=== PATIENT | male | born 1960 | race African-American/Black ===

== ENCOUNTER 2024-10-02 12:14 | Outpatient (AMB) | payer OTHER, SELFPAY ==
--- OUTSIDE RECORDS SUMMARY | 2024-09-26 15:00 | XMS_ITS | Encounter Summary ---
Author Organization [facility] [place] [address] Care Team Providers Care Mangle Roller Name Role Phone Deloris Tobias INDIGO VAT TENDER CLOTH Primary Care Provider [phone] Reason for Visit * Consultation (Routine) - Authorized Specialty Diagnoses / Procedures Referred By Tonja short Referred To Contact Podiatry Diagnoses Healthcare maintenance Type 2 diabetes mellitus with peripheral artery disease ([facility] V24, [facility]/HCC V28) Edema, lower extremity Onychogryphosis Onychomycosis Callus Xerosis of skin Deloris Tobias NP [address] [facility] [address] [place] [address] Phone: tel: fax: [facility] Podiatry, Dental, Audiology, Optometry - [place] [address] [address] [address] [place] [address] Phone: tel: fax: Referral ID Status Reason Start Date Expiration Date Visits Requested Visits Authorized [id number] Authorized Consult and Treat 05/12/2024 05/12/2025 1 1 Encounter Details Date Type Department Care Team (Latest Contact Info) Description 09/26/2024 3:00 PM EDT PACE External Visit Emilee MAHONEY [place] [address] [place] [address] Healthcare maintenance; Type 2 diabetes mellitus with peripheral artery disease ([facility]/HCC V24, [facility]/HCC V28); Edema, lower extremity; Onychogryphosis; Onychomycosis; Callus; Xerosis of skin Social History Tobacco Use Types Packs/Day Years Used Date Smoking Tobacco: Every Day Cigarettes 0.5 31 Started: 09/14/1993 Smokeless Tobacco: Never Alcohol Use Standard Drinks/Week Comments Not Currently 0 (1 standard drink = 0.6 oz pur e alcohol) Sex and Gender Information Value Date Recorded Sex Assigned at Not on file Legal Sex Male 3:36 PM EST Gender Identity Not on file Sexual Orientation Not on file documented as of this encounter Plan of Treatment Upcoming Encounters Date Type Department Care Team (Late st Contact Info) Description 10/02/2024 6:00 PM EDT PACE Home Care / PACE Home Visit Emilee [facility] [address] [place] [phone] My Phillips 10/03/2024 10:30 AM EDT PACE Home Care / PACE Home Visit Emilee [facility] [address] [place] [phone] Merlin Forbes 10/03/2024 6:00 PM EDT PACE Home Care / PACE Home Visit Emilee [facility] [address] [place] [phone] My Phillips 10/04/2024 9:30 AM EDT PACE Home Care / PACE Home Visit Emilee [facility]ONEY [facility] [address] [place] [phone] Merlin Forbes 10/04/2024 6:00 PM EDT PACE Home Care / PACE Home Visit Emilee [facility] [address] [place] [phone] My Phillips 10/07/2024 9:30 AM EDT PACE Home Care / PACE Home Visit Emilee [facility] [address] [place] [address] Merlin Forbes 10/07/2024 6:00 PM EDT PACE Home Care / PACE Home Visit Emilee [facility] [address] [place] [address] My Phillips 10/08/2024 7:00 AM EDT Clinical Support [facility] [address] [place] [address] Nkechi Grajeda, EDD 10/08/2024 9:15 AM EDT Clinical Support [facility] [place] [facility] [address] [place] [address] Nkechi Grajeda, EDD 10/08/2024 6:00 PM EDT PACE Home Care / PACE Home Visit Emilee [facility] [address] [place] [phone] My Phillips 10/09/2024 10:00 AM EDT PACE Home Care / PACE Home Visit Emilee [facility] [address] [place] [phone] Merlin Forbes 10/09/2024 6:00 PM EDT PACE Home Care / PACE Home Visit Emilee [facility]Y [facility] [address] [place] [phone] My Phillips 10/10/2024 10:30 AM EDT PACE Home Care / PACE Home Visit Emilee [facility] [address] [place] [phone] Merlin Forbes 10/10/2024 6:00 PM EDT PACE Home Care / PACE Home Visit Emilee [facility]Y [facility] [address] [place] [phone] My Phillips 10/11/2024 9:30 AM EDT PACE Home Care / PACE Home Visit Emilee [facility] [address] [place] [address] Merlin Forbes 10/11/2024 6:00 PM EDT PACE Home Care / PACE Home Visit Emilee [facility] [address] [place] [address] My Phillips 10/14/2024 9:30 AM EDT PACE Home Care / PACE Home Visit Emilee [facility]Y [facility] [address] [place] [phone] Merlin Forbes 10/14/2024 6:00 PM EDT PACE Home Care / PACE Home Visit Emilee [facility]Y [facility] [address] [place] [phone] My Phillips 10/15/2024 7:00 AM EDT Clinical Support [facility] [address] [place] [phone] Nkechi Grajeda RN 10/15/2024 9:30 AM EDT PACE Home Care / PACE Home Visit Emilee [facility] [address] [place] [phone] Merlin Forbes 10/15/2024 6:00 PM EDT PACE Home Care / PACE Home Visit Emilee [facility] [address] [place] [phone] My Phillips 10/16/2024 10:00 AM EDT PACE Home Care / PACE Home Visit Emilee [facility] [address] [place] [phone] Merlin Forbes 10/16/2024 6:00 PM EDT PACE Home Care / PACE Home Visit Emilee [facility] [address] [place] [phone] My Phillips 10/17/2024 10:30 AM EDT PACE Home Care / PACE Home Visit Emilee [facility] [address] [place] [address] Merlin Forbes 10/17/2024 6:00 PM EDT PACE Home Care / PACE Home Visit Emliee [facility]Y [facility] [address] [place] [address] My Phillips 10/18/2024 9:30 AM EDT PACE Home Care / PACE Home Visit Emilee [facility]ONEY [facility] [address] [place] [phone] Merlin Forbes 10/18/2024 6:00 PM EDT PACE Home Care / PACE Home Visit Emilee [facility]Y [facility] [address] [place] [phone] My Phillips 10/21/2024 9:30 AM EDT PACE Home Care / PACE Home Visit Emilee [facility]Y [facility] [address] [place] [phone] Merlin Forbes 10/21/2024 6:00 PM EDT PACE Home Care / PACE Home Visit Emilee [facility]Y [facility] [address] [place] [phone] My Phillips 10/22/2024 7:00 AM EDT Clinical Support [facility] [place] [facility] [address] [place] [address] Nkechi Grajeda RN 10/22/2024 9:30 AM EDT PACE Home Care / PACE Home Visit Emilee [facility] [address] [place] [phone] Merlin Forbes 10/22/2024 6:00 PM EDT PACE Home Care / PACE Home Visit Emilee [facility] [address] [place] [address] [place] [address] [employer] 10/23/2024 10:00 AM EDT PACE Home Care / PACE Home Visit Emilee [facility] [address] [place] [address] Merlin Forbes 10/23/2024 6:00 PM EDT PACE Home Care / PACE Home Visit Emilee [facility] [address] [place] [address] [employer] 10/24/2024 10:30 AM EDT PACE Home Care / PACE Home Visit Emilee [facility]Y [facility] [address] [place] [phone] Merlin Forbes 10/24/2024 6:00 PM EDT PACE Home Care / PACE Home Visit Emilee [facility]Y [facility] [address] [place] [phone] [employer] 10/25/2024 9:30 AM EDT PACE Home Care / PACE Home Visit Eimlee MA[facility]ONEY [facility] [address] [place] [phone] Merlin Forbes 10/25/2024 6:00 PM EDT PACE Home Care / PACE Home Visit Emilee [facility]ONEY [facility] [address] [place] [phone] My Phillips 10/28/2024 9:30 AM EDT PACE Home Care / PACE Home Visit Emilee [facility]ONEY [facility] [address] [place] [phone] Merlin Forbes 10/28/2024 6:00 PM EDT PACE Home Care / PACE Home Visit Emilee [facility]ONEY [facility] [address] [place] [phone] My Phillips 10/29/2024 7:00 AM EDT Clinical Support [facility] [place] [facility] [address] [place] [phone] Nkechi Grajeda RN 10/29/2024 9:15 AM EDT Clinical Support [facility] [place] [facility] [address] [place] [phone] Nkechi Grajeda RN 10/29/2024 6:00 PM EDT PACE Home Care / PACE Home Visit Emilee [facility]Y [facility] [address] [place] [phone] My Phillips 10/30/2024 10:00 AM EDT PACE Home Care / PACE Home Visit Emilee [facility]ONEY [facility] [address] [place] [phone] Merlin Forbes 10/30/2024 6:00 PM EDT PACE Home Care / PACE Home Visit Emilee [facility]Y [facility] [address] [place] [phone] My Phillips 10/31/2024 10:30 AM EDT PACE Home Care / PACE Home Visit Emilee [facility]ONEY [facility] [address] [place] [phone] Merlin Forbes 10/31/2024 6:00 PM EDT PACE Home Care / PACE Home Visit Emilee [facility]ONEY [facility] [address] [place] [phone] My Phillips 11/01/2024 9:30 AM EDT PACE Home Care / PACE Home Visit Emilee [facility]ONEY [facility] [address] [place] [phone] Merlin Forbes 11/01/2024 6:00 PM EDT PACE Home Care / PACE Home Visit Emilee [facility]ONEY [facility] [address] [place] [phone] My Phillips 11/04/2024 9:30 AM EDT PACE Home Care / PACE Home Visit Emilee [facility]Y [facility] [address] [place] [address] Merlin Forbes 11/04/2024 6:00 PM EDT PACE Home Care / PACE Home Visit Emilee [facility]Y [facility] [address] [place] [address] My Phillips 11/05/2024 7:00 AM EDT Clinical Support [facility] [address] [place] [phone] Nkechi Grajeda RN 11/05/2024 9:30 AM EDT PACE Home Care / PACE Home Visit Emilee [facility]Y [facility] [address] [place] [phone] Merlin Forbes 11/05/2024 6:00 PM EDT PACE Home Care / PACE Home Visit Emilee [facility]HONEY [facility] [address] [place] [phone] My Phillips 11/06/2024 10:00 AM EDT PACE Home Care / PACE Home Visit Emilee [facility]ONEY [facility] [address] [place] [phone] Merlin Forbes 11/06/2024 6:00 PM EDT PACE Home Care / PACE Home Visit Emilee [facility]HONEY [facility] [address] [place] [phone] My Phillips 11/07/2024 10:30 AM EDT PACE Home Care / PACE Home Visit Emilee [facility]ONEY [facility] [address] [place] [phone] Merlin Frobes 11/07/2024 6:00 PM EDT PACE Home Care / PACE Home Visit Emilee [facility]ONEY [facility] [address] [place] [phone] My Phillips 11/08/2024 9:30 AM EDT PACE Home Care / PACE Home Visit Emilee MAHONEY [facility] [address] [place] [address] Merlin Forbes 11/08/2024 11:00 AM EDT PACE External Visit Emilee MAHONEY MA [address] [place] [address] 11/08/2024 6:00 PM EDT PACE Home Care / PACE Home Visit Emilee MAHONEY [facility] [address] [place] [phone] My Phillips 11/11/2024 9:30 AM EDT PACE Home Care / PACE Home Visit Emilee [facility]HONEY [facility] [address] [place] [phone] Merlin Forbes 11/11/2024 6:00 PM EDT PACE Home Care / PACE Home Visit Emilee [facility]HONEY [facility] [address] [place] [phone] My Phillips 11/12/2024 7:00 AM EDT Clinical Support [facility] [place] [facility] [address] [place] [phone] Nkechi Grajeda RN 11/12/2024 9:30 AM EDT PACE Home Care / PACE Home Visit Emilee [facility]Y [facility] [address] [place] [phone] Merlin Forbes 11/12/2024 6:00 PM EDT PACE Home Care / PACE Home Visit Emilee [facility]Y [facility] [address] [place] [phone] My Phillips 11/13/2024 10:00 AM EDT PACE Home Care / PACE Home Visit Emilee [facility]Y [facility] [address] [place] [phone] Merlin Forbes 11/13/2024 6:00 PM EDT PACE Home Care / PACE Home Visit Emilee [facility]HONEY [facility] [address] [place] [phone] My Phillips 11/14/2024 10:30 AM EDT PACE Home Care / PACE Home Visit Emilee [facility]HONEY [facility] [address] [place] [phone] Merlin Forbes 11/14/2024 6:00 PM EDT PACE Home Care / PACE Home Visit Emilee MAHONEY [facility] [address] [place] [phone] My Phillips 11/15/2024 9:30 AM EDT PACE Home Care / PACE Home Visit Emilee [facility]HONEY [facility] [address] [place] [phone] Merlin Forbes 11/15/2024 6:00 PM EDT PACE Home Care / PACE Home Visit Emilee [facility]HONEY [facility] [address] [place] [phone] My Phillips 11/18/2024 9:30 AM EDT PACE Home Care / PACE Home Visit Emilee [facility]HONEY [facility] [address] [place] [phone] Merlin Forbes 11/18/2024 6:00 PM EDT PACE Home Care / PACE Home Visit Emilee MAHONEY [facility] [address] [place] [phone] My Phillips 11/19/2024 7:00 AM EDT Clinical Support [facility] [place] [facility] [address] [place] [phone] Nkechi Grajeda RN 11/19/2024 9:15 AM EDT Clinical Support [facility] [place] [facility] [address] [place] [address] [place] [phone] Nkechi Grajeda RN 11/19/2024 6:00 PM EDT PACE Home Care / PACE Home Visit Emilee [facility]Y [facility] [address] [place] [phone] My Phillips 11/20/2024 10:00 AM EDT PACE Home Care / PACE Home Visit Emilee [facility]HONEY [facility] [address] [place] [phone] Merlin Forbes 11/20/2024 6:00 PM EDT PACE Home Care / PACE Home Visit Emilee [facility]HONEY [facility] [address] [place] [phone] My Phillips 11/21/2024 10:30 AM EDT PACE Home Care / PACE Home Visit Emilee [facility]Y [facility] [address] [place] [phone] Merlin Forbes 11/21/2024 11:00 AM EDT PACE External Visit Emilee MAHONEY MA [address] [place] [phone] 11/21/2024 6:00 PM EDT PACE Home Care / PACE Home Visit Emilee [facility] [address] [place] [phone] My Phillips 11/22/2024 9:30 AM EDT PACE Home Care / PACE Home Visit Emilee [facility] [address] [place] [phone] Merlin Forbes 11/22/2024 6:00 PM EDT PACE Home Care / PACE Home Visit Emilee [facility] [address] [place] [phone] My Phillips 11/25/2024 9:30 AM EDT PACE Home Care / PACE Home Visit Emilee [facility] [address] [place] [address] Merlin Forbes 11/25/2024 6:00 PM EDT PACE Home Care / PACE Home Visit Emilee [facility] [address] [place] [address] My Phillips 11/26/2024 7:00 AM EDT Clinical Support [facility] [place] [facility] [address] [place] [address] Nkechi Grajeda RN 11/26/2024 9:30 AM EDT PACE Home Care / PACE Home Visit Emilee [facility] [address] [place] [phone] Merlin Forbes 11/26/2024 6:00 PM EDT PACE Home Care / PACE Home Visit Emilee [facility] [address] [place] [phone] My Phillips 11/27/2024 10:00 AM EDT PACE Home Care / PACE Home Visit Emilee [facility]Y [facility] [address] [place] [phone] Merlin Forbes 11/27/2024 6:00 PM EDT PACE Home Care / PACE Home Visit Emilee [facility]Y [facility] [address] [place] [phone] My Phillips 11/28/2024 10:30 AM EDT PACE Home Care / PACE Home Visit Emilee [facility]Y [facility] [address] [place] [phone] Merlin Forbes 11/28/2024 6:00 PM EDT PACE Home Care / PACE Home Visit Emilee [facility] [address] [place] [address] My Phillips 11/29/2024 9:30 AM EDT PACE Home Care / PACE Home Visit Emilee [facility] [address] [place] [phone] Merlin Forbes 11/29/2024 6:00 PM EDT PACE Home Care / PACE Home Visit Emilee [facility] [address] [place] [phone] My Phillips 12/03/2024 7:00 AM EDT Clinical Support [facility] [place] [facility] [address] [place] [phone] Nkechi Grajeda, EDD 12/10/2024 7:00 AM EDT Clinical Support [facility] [place] [facility] [address] [place] [phone] Nkechi Grajeda, EDD 12/10/2024 9:15 AM EDT Clinical Support [facility] [place] [facility] [address] [place] [phone] Nkechi Grajeda, EDD 12/17/2024 7:00 AM EDT Clinical Support [facility] [address] [place] [phone] Nkechi Grajeda, EDD 12/24/2024 7:00 AM EDT Clinical Support [facility] [address] [place] [phone] Nkechi Grajeda, EDD 12/31/2024 7:00 AM EDT Clinical Support [facility] [place] [facility] [address] [place] [phone] Nkechi Grajeda, RN 12/31/2024 8:15 AM EDT Clinical Support [facility] [place] [facility] [address] [place] [phone] Nkechi Grajeda, RN 12/31/2024 10:00 AM EDT Ancillary Procedure [facility] [address] [place] [address] 01/07/2025 7:00 AM EDT Clinical Support [facility] [place] [facility] [address] [place] [phone] Nkechi Grajeda, EDD 01/14/2025 7:00 AM EDT Clinical Support [facility] [address] [place] [phone] Nkechi Grajeda, EDD 01/21/2025 7:00 AM EST Clinical Support [facility] [address] [place] [phone] Nkechi Grajeda, EDD 01/21/2025 9:15 AM EST Clinical Support [facility] [address] [place] [phone] Nkechi Grajeda, EDD 01/28/2025 7:00 AM EST Clinical Support [facility] [place] [facility] [address] [phone] Nkechi Grajeda, EDD 02/04/2025 7:00 AM EST Clinical Support [facility] [place] [facility] [address] [place] [phone] Nkechi Grajeda, EDD 02/11/2025 7:00 AM EST Clinical Support [facility] [address] [place] [phone] Nkechi Grajeda, EDD 02/11/2025 9:15 AM EST Clinical Support [facility] [address] [place] [phone] Nkechi Grajeda, EDD 02/18/2025 7:00 AM EST Clinical Support [facility] [address] [place] [phone] Nkechi Grajdea, EDD 02/25/2025 7:00 AM EST Clinical Support [facility] [address] [place] [phone] Nkechi Grajeda, EDD 03/04/2025 7:00 AM EST Clinical Support [facility] [address] [place] [phone] Nkechi Grajeda, EDD 03/04/2025 9:15 AM EST Clinical Support [facility] [address] [place] [phone] Nkechi Grajeda, EDD 03/11/2025 7:00 AM EST Clinical Support [facility] [address] [place] [phone] Nkechi Grajeda, EDD 03/18/2025 7:00 AM EST Clinical Support [facility] [address] [place] [phone] Nkechi Grajeda, EDD 03/25/2025 7:00 AM EST Clinical Support [facility] [place] [facility] [address] [phone] Nkechi Grajeda, EDD 03/25/2025 9:15 AM EST Clinical Support [facility] [address] [place] [phone] Nkechi Grajeda, EDD 04/01/2025 7:00 AM EST Clinical Support [facility] [address] [place] [phone] Nkechi Grajeda, EDD 04/08/2025 7:00 AM EST Clinical Support [facility] [address] [place] [phone] Nkechi Grajeda, EDD 04/15/2025 7:00 AM EST Clinical Support [facility] [address] [place] [phone] Nkechi Grajeda, EDD 04/15/2025 9:15 AM EST Clinical Support [facility] [address] [place] [phone] Nkechi Grajeda, RN 04/22/2025 7:00 AM EST Clinical Support [facility] [address] [place] [phone] Nkechi Grajeda, EDD 04/29/2025 7:00 AM EST Clinical Support [facility] [address] [place] [phone] Nkechi Grajeda, EDD 05/06/2025 7:00 AM EST Clinical Support [facility] [address] [place] [phone] Nkechi Grajeda, EDD 05/06/2025 9:15 AM EST Clinical Support [facility] [address] [place] [phone] Nkechi Grajeda, EDD 05/13/2025 7:00 AM EST Clinical Support [facility] [address] [place] [phone] Nkechi Grajeda, EDD 05/20/2025 7:00 AM EST Clinical Support [facility] [address] [place] [phone] Nkechi Grajeda, EDD 05/27/2025 7:00 AM EDT Clinical Support [facility] [address] [place] [phone] Nkechi Grajeda, EDD 05/27/2025 9:15 AM EDT Clinical Support [facility] [address] [place] [phone] Nkechi Grajeda, EDD 06/03/2025 7:00 AM EDT Clinical Support [facility] [place] [facility] [address] [place] [phone] Nkechi Grajeda, EDD 06/10/2025 7:00 AM EDT Clinical Support [facility] [address] [place] [phone] Nkechi Grajeda, EDD 06/17/2025 7:00 AM EDT Clinical Support [address] [phone] Nkechi Grajeda, EDD 06/17/2025 9:15 AM EDT Clinical Support [address] [phone] Nkechi Grajeda, EDD 06/24/2025 7:00 AM EDT Clinical Support [address] [phone] Nkechi Grajeda, EDD 07/01/2025 7:00 AM EDT Clinical Support [address] [phone] Nkechi Grajeda, EDD 07/08/2025 7:00 AM EDT Clinical Support [address] [phone] Nkechi Grajeda, EDD 07/08/2025 9:15 AM EDT Clinical Support [address] [phone] Nkechi Grajeda, EDD 07/15/2025 7:00 AM EDT Clinical Support [address] [phone] Nkechi Grajeda, RN documented as of this encounter Visit Diagnoses Diagnosis Healthcare maintenance Type 2 diabetes mellitus with peripheral artery disease ([facility] V24, [facility] V28) Edema, lower extremity Onychogryphosis Other specified disease of nail Onychomycosis Dermatophytosis of nail Callus Corns and callosities Xerosis of skin Encounter for adjustment or management of cardiac device documented in this encounter Orders Outpatient Referral Count Last Ordered Date Fir st Ordered Date AMB REFERRAL TO PODIATRY 09/27/2024 documented in this encounter Care Teams Mangle Roller Relationship Specialty Start Date End Date Deloris Tobias NP [address] [place] [phone] PCP - General Family Medicine 01/26/24 documented as of this encounter
--- NOTE | 2024-10-02 12:37 | A.OFFVIS_ITS ---
Intake Visit Reasons: right hand tremor Allergies shellfish derived Allergy (Unknown, Verified 04/21/22 09:07) Unknown Medication List - Last Reconciled 10/02/24 by Sofiya Iglesias MD albuterol sulfate 90 mcg/actuation 2 puffs inhalation Q6H PRN aspirin 81 mg PO DAILY atorvastatin (Lipitor) 80 mg PO DAILY bumetanide 2 mg PO BID carvedilol 6.25 mg PO BID dapagliflozin propanediol (Farxiga) 10 mg PO DAILY finasteride 5 mg PO BEDTIME fluticasone propion-salmeterol 100-50 mcg/dose 1 inh inhalation BID gabapentin 800 mg PO TID isosorbide mononitrate ER 30 mg PO QAM lidocaine 4% 1 patch topical DAILY PRN metformin 1,000 mg PO BID nitroglycerin 0.4 mg sublingual Q5M PRN potassium chloride ER 10 mEq PO DAILY sacubitril-valsartan 49-51 mg (Entresto) 1 tab PO BID spironolactone 25 mg PO BID tamsulosin 0.4 mg PO DAILY trazodone 100 mg PO BEDTIME HPI Comments Details: This is a 63-year-old right-handed man with a history of type 2 diabetes mellitus, hyperlipidemia, hypertension, coronary artery disease status post CO who had 3 vessel coronary bypass graft in 2019 and has a pacemaker insertion. He is here for evaluation of tremors that started about a year ago in the right hand and now involves both upper extremities. It happens mostly when you hold his hands up but sometimes also at rest. If he tries hard enough he can control it to some degree. It interferes with his function. His older brother also has tremors and has been diagnosed with Parkinson's disease. 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 [facility] Medical History (Updated 10/02/24 @ 13:14 by Libby Woodall MA) Hypercholesteremia Pacemaker CAD (coronary artery disease) Hypertension Diabetes mellitus Surgical History (Updated 10/02/24 @ 13:14 by Libby Woodall MA) S/P triple vessel bypass Social History (Updated 04/21/22 @ 09:35 by Yu Centeno CMA) Patient Tobacco Use Status: Current everyday Tobacco user Review of Systems Const Details: Sleep Difficulty getting to sleep?denies.?Difficulty maintaining sleep?denies?.?Urge to move legs?denies.?Teeth grinding?denies.?Shouting or Kicking during sleep ?denies.?Abnormal behavior during sleep?denies.?Excessive sleep?denies.?Snoring ?denies.?Daytime sleepiness?denies. ? General/Constitutional Change in appetite?denies.?Chills?denies.?Fatigue?denies.?Fever?denies.?Weight gain?denies.?Weight loss?denies. ? Ophthalmologic Blurred vision?denies.?Diminished visual acuity?denies. ? ENT Stuffiness?denies.?Decreased hearing?denies.?Dry mouth?denies.?Ear pain ?denies.?Nosebleed?denies.?Ringing in the ears?denies.?Sinus pain?denies.?Sore throat?denies.?Swollen glands?denies. ? Endocrine Cold intolerance?denies.?Excessive thirst?denies.?Frequent urination?denies.? Heat intolerance?denies. ? Respiratory Shortness of breath?denies.?Chest pain?denies.?Cough?denies. ? Breast Breast lump?denies.?Nipple discharge?denies. ? Cardiovascular Chest pain at rest?denies.?Chest pain with exertion?denies.?Claudication ?denies.?Dizziness?denies.?Fluid accumulation in the legs?denies.?Irregular heartbeat?denies.?Palpitations?denies. ? Gastrointestinal Abdominal pain?denies.?Constipation?denies.?Diarrhea?denies.?Difficulty swallowing?denies.?Heartburn?denies.?Nausea?denies.?Rectal bleeding?denies. ? Hematology Easy bruising?denies.?Prolonged bleeding?denies. ? Genitourinary Frequent urination?denies.?Urgency?denies.?Incontinence?denies.?Erectile Dysfunction?denies. ? Musculoskeletal Neck pain?denies.?Back pain?denies.?Muscle aches?denies.?Painful joints ?denies.?Sciatica?denies.?Weakness?denies. ? Podiatric Difficulty walking?denies.?Foot numbness?denies. ? Neurologic Difficulty swallowing?denies.?Balance difficulty?denies.?Coordination?normal.? Difficulty speaking?denies.?Dizziness?denies.?Fainting?denies.?Gait abnormality ?denies.?Headache?denies.?Loss of strength?denies.?Loss of use of extremity ?denies.?Low back pain?denies.?Memory loss?denies.?Seizures?denies.?Tics ?denies.?Tingling/Numbness?denies.?Transient loss of vision?denies.?Tremor?Yes. ? Psychiatric Anxiety?denies.?Auditory/visual hallucinations?denies.?Delusions?denies.? Depressed mood?denies.?Stressors?denies.?Substance abuse?denies.?Suicidal thoughts?denies. Physical Exam Neuro Other: Abnormal neurological findings:??Tremor as described below. ? Mental Status:?alert and oriented X 3,?Normal attention, orientation, memory and affect.? Cranial Nerves:?Pupils are equal, round and reactive to light. Fundoscopy shows normal disc bilaterally. External occular muscles are intact. Visual brady are full, no ptosis. Face is symmetrical, no facial weakness or droop. Facial sensations are normal. Tongue protrudes in midline. Palate elevates symmetrically. Shoulder shrugging is normal..? Motor Examination:?Normal muscle tone, bulk and strength,?No atrophy or fasciculations,?No drift of the extended upper extremities,?Deep tendon reflexes are 2+,?Plantars are flexor?.? Motor Strength:?Proximal Muscles (out of 5):5 Distal Muscles (out of 5):5 Neck Flexors (out of 5):5 Neck Extensors (out of 5):5 Deltoid (out of 5):5 Biceps (out of 5):5Triceps (out of 5):5 Serratus Anterior (out of 5):5 Wrist Extensors (out of 5):5 APB (out of 5):5 Finger Spread (out of 5):5 Ileopsoas (out of 5):5 Quadriceps (out of 5):5 Hamstrings (out of 5):5 Tibialis Anterior (out of 5):5 Peronei (out of 5):5 EDB (out of 5):5 Gastrocnemius (out of 5):5 Straight Leg Raising:?90 degrees.? Sensory Exam:?Normal light touch, temperature, pinprick, vibration and joint- position sensations?,?Rhomberg sign is absent.? Coordination:?no ataxia,?no titubation,?[id number], mrqn-[id number] test and rapid alternating movements were normal.? Gait Exam:?Walks slowly with a cane .? Cerebellar Signs:?[id number] and [id number] is normal,?no dysdiadochokinesia?.? Extrapyramidal System:?Coarse tremors of both upper extremities , fingers , hands and forearms at 6Hz frequency , large amplitude, intermittently , mostly on sustained posture and minimally at rest. No rigidity with normal facial expressions,?No bradykinesia, no bradyphrenia. Normal arm swing and posture. No propulsion or retropulsion.? Speech:?Normal,?no dysphasia or dysarthria..? Mini Mental Status Exam Level of Consciousness:?Alert.? Orientation:?Knows correct year, month, date, day and season,?Knows correct city, county and state. Knows correct location and floor.? Registration:?Able to register 3 objects.? Attention:?Serial 7's performed accurately.? Recall:?Able to recall 3 out of 3 objects.? Language:?Normal spontaneous speech, fluency, repetition,naming, comprehension, reading and writing.? Total Score:?30/30.? General Examination GENERAL APPEARANCE:?normal,?in no acute distress.? HEAD:?normocephalic,?atraumatic.? EYES:?sclera non-icteric,?conjunctiva clear.? EARS:?auditory canal clear,?tympanic membrane intact, clear.? NOSE:?no lesions.? ORAL CAVITY:?gums normal,?mucosa moist,?no lesions.? THROAT:?clear.? NECK/THYROID:?no cervical lymphadenopathy,?thyroid normal,?neck supple, full range of motion,?no carotid bruit.? SKIN:?no rashes,?no significant birthmarks.? HEART:?S1, S2 normal,?no murmurs.? LUNGS:?clear anteriorly and posteriorly.? CHEST:?no gross rib deformity,?clear to auscultation.? BACK:?normal exam of spine.? EXTREMITIES:?no edema.? PERIPHERAL PULSES:?normal.? PSYCH:?alert, oriented,?cognitive function intact,?cooperative with exam.? 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 Obtain HA scan for dopamine depletion. Possible familial tremor. 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
== END 2024-10-02 13:49 | disposition home or self-care (01) ==
LOC: HO.HSM 12:15
PROVIDERS: PCP Internal Medicine Rheumatology; Referring Provider Internal Medicine Rheumatology; Visit Provider Psychiatry & Neurology Neurology
DX: G96.9 Disorder of central nervous system, unspecified (principal); R25.1 Tremor, unspecified; E78.00 Pure hypercholesterolemia, unspecified
CPT/HCPCS: 99204

== ENCOUNTER → 2024-10-02 12:14 | Outpatient (BNVA) | payer OTHER, SELFPAY | PROVIDERS: PCP Internal Medicine Rheumatology; Referring Provider Internal Medicine Rheumatology; Visit Provider Psychiatry & Neurology Neurology | DX: G96.9 Disorder of central nervous system, unspecified (principal); R25.1 Tremor, unspecified; E78.00 Pure hypercholesterolemia, unspecified; Z79.899 Other long term (current) drug therapy | CPT/HCPCS: 99202 ==

== ENCOUNTER 2024-12-16 03:28 | Emergency (ER) | payer OTHER, SELFPAY ==
--- OUTSIDE RECORDS SUMMARY | 2024-12-11 09:00 | XMS_ITS | Encounter Summary ---
Author Organization [facility] Address [address] [place] [address] Care Team Providers Care Teletypewriter Installer Name Role Phone Deloris Tobias BUTTON BREAKER Primary Care Provider [phone] Encounter Details Date Type Department Care Team (Late st Contact Info) Description 12/11/2024 9:00 AM EDT PACE Home Care / PACE Home Visit Emilee [facility] [address] [place] [phone] Merlin Forbes Social History Tobacco Use Types Packs/Day Years Used Date Smoking Tobacco: Every Day Cigarettes 0.5 31.3 Started: 09/14/1993 Smokeless Tobacco: Never Alcohol Use Standard Drinks/Week Comments Not Currently 0 (1 standard drink = 0.6 oz pur e alcohol) Interpersonal Safety Answer Date Record ed Physical Abuse Unrecognized value 12/12/2024 Verbal Abuse Unrecognized value 12/12/2024 Sex and Gender Information Value Date Recorded Sex Assigned at Not on file Legal Sex Male 9:01 PM EDT Gender Identity Not on file Sexual Orientation Not on file documented as of this encounter Functional Status * Calculated C-SSRS Risk Score (Lifetime/Recent) Answer Date of Assessment Author No Risk Indicated 12/11/2024 9:44 PM EDT Geronimo Mane, EDD * [place] Suicide Severity Rating Scale (Screener/Recent Self-Report) Question Answer Date of Assessment Author 1. Wish to be (Past 1 Month) No 12/11/2024 9:44 PM EDT Bernardino Rodriguez RN 2. Non-Specific Active Suici pari Thoughts (Past 1 Month) No 12/11/2024 9:44 PM EDT Jerel Rodriguez RN 6. Suicidal Behavior (Lifetime) No 9:44 PM EDT Geronimo Rodriguez RN documented as of this encounter Plan of Treatment Upcoming Encounters Date Type Department Care Team (Late st Contact Info) Description 12/16/2024 9:30 AM EDT PACE Home Care / PACE Home Visit [facility] [address] [place] [phone] Merlin Forbes 12/16/2024 11:00 AM EDT Office Visit [facility] [address] [place] [phone] Deloris Tobias NP [address] [address] 12/16/2024 6:00 PM EDT PACE Home Care / PACE Home Visit Em[facility] [address] [place] [phone] My Phillips 12/17/2024 7:00 AM EDT Clinical Support [facility] [address] [place] [address] Nkechi Grajeda, EDD 12/17/2024 9:30 AM EDT PACE Home Care / PACE Home Visit Em[facility] [address] [place] [phone] Merlin Forbes 12/17/2024 11:00 AM EDT Treatment Emilee MAHONEY MA Occupational Therapy [address] [place] [phone] Tyler Ling OT 12/17/2024 6:00 PM EDT PACE Home Care / PACE Home Visit [facility] [address] [place] [phone] My Phillips 12/18/2024 10:00 AM EDT PACE Home Care / PACE Home Visit Em[facility] [address] [place] [phone] Merlin Forbes 12/18/2024 6:00 PM EDT PACE Home Care / PACE Home Visit Em[facility] [address] [place] [phone] My Phillips 12/19/2024 10:30 AM EDT PACE Home Care / PACE Home Visit Em[facility] [address] [place] [phone] Merlin Forbes 12/19/2024 6:00 PM EDT PACE Home Care / PACE Home Visit Emilee [facility] [address] [place] [phone] My Phillips 12/20/2024 9:00 AM EDT Appointment [address] [address] 12/20/2024 9:30 AM EDT PACE Home Care / PACE Home Visit Emilee [facility] [address] [place] [phone] Merlin Forbes 12/20/2024 6:00 PM EDT PACE Home Care / PACE Home Visit Em[facility] [address] [place] [phone] My Phillips 12/21/2024 8:30 AM EDT PACE Home Care / PACE Home Visit Em[facility] [address] [place] [address] Anabelle Valdez 12/22/2024 8:30 AM EDT PACE Home Care / PACE Home Visit Em[facility] [address] [place] [phone] Anabelle Valdez 12/23/2024 9:30 AM EDT PACE Home Care / PACE Home Visit Em[facility] [address] [place] [phone] Merlin Forbes 12/23/2024 6:00 PM EDT PACE Home Care / PACE Home Visit Emilee [facility] [address] [place] [phone] My Phillips 12/24/2024 7:00 AM EDT Clinical Support [facility] [address] [place] [phone] Nkechi Grajeda RN 12/24/2024 9:30 AM EDT PACE Home Care / PACE Home Visit Em[facility] [address] [place] [phone] Merlin Forbes 12/24/2024 6:00 PM EDT PACE Home Care / PACE Home Visit Em[facility] [address] [place] [phone] My Phillips 12/25/2024 10:00 AM EDT PACE Home Care / PACE Home Visit Em[facility] [address] [place] [phone] Merlin Forbes 12/25/2024 6:00 PM EDT PACE Home Care / PACE Home Visit Emilee [facility] [address] [place] [phone] My Phillips 12/26/2024 10:40 AM EDT Clinical Support Emilee MAHONEY [place] [address] [place] [address] 12/26/2024 6:00 PM EDT PACE Home Care / PACE Home Visit Em[facility] [address] [place] [phone] My Phillips 12/27/2024 9:30 AM EDT PACE Home Care / PACE Home Visit Em[facility] [address] [place] [address] Merlin Forbes 12/27/2024 6:00 PM EDT PACE Home Care / PACE Home Visit Em[facility] [address] [place] [address] My Phillips 12/30/2024 9:30 AM EDT PACE Home Care / PACE Home Visit Em[facility] [address] [place] [address] Merlin Forbes 12/30/2024 6:00 PM EDT PACE Home Care / PACE Home Visit Em[facility] [address] [place] [address] My Phillips 12/31/2024 7:00 AM EDT Clinical Support [facility] [address] [place] [address] Nkechi Grajeda, EDD 12/31/2024 9:30 AM EDT PACE Home Care / PACE Home Visit Em[facility] [address] [place] [address] Merlin Forbes 12/31/2024 10:00 AM EDT Ancillary Procedure [facility] [address] [place] [address] 12/31/2024 6:00 PM EDT PACE Home Care / PACE Home Visit Emilee [facility] [address] [place] [address] My Phillips 01/01/2025 10:00 AM EDT PACE Home Care / PACE Home Visit Em[facility] [address] [place] [phone] Merlin Forbes 01/01/2025 6:00 PM EDT PACE Home Care / PACE Home Visit Em[facility] [address] [place] [phone] My Phillips 01/02/2025 10:30 AM EDT PACE Home Care / PACE Home Visit Em[facility] [address] [place] [phone] Merlin Forbes 01/02/2025 3:00 PM EDT Clinical Support Emilee MAHONEY MA [address] [place] [phone] 01/02/2025 6:00 PM EDT PACE Home Care / PACE Home Visit Em[facility] [address] [place] [phone] My Phillips 01/03/2025 9:30 AM EDT PACE Home Care / PACE Home Visit Em[facility] [address] [place] [phone] Merlin Forbes 01/03/2025 6:00 PM EDT PACE Home Care / PACE Home Visit Em[facility] [address] [place] [phone] My Phillips 01/04/2025 8:30 AM EDT PACE Home Care / PACE Home Visit Em[facility] [address] [place] [phone] Anabelle Valdez 01/05/2025 8:30 AM EDT PACE Home Care / PACE Home Visit Em[facility] [address] [place] [address] Anabelle Valdez 01/06/2025 9:30 AM EDT PACE Home Care / PACE Home Visit Emilee [facility] [address] [place] [address] Merlin Forbes 01/06/2025 6:00 PM EDT PACE Home Care / PACE Home Visit Em[facility] [address] [place] [phone] My Phillips 01/07/2025 7:00 AM EDT Clinical Support [facility] [address] [place] [phone] Nkechi Grajeda, EDD 01/07/2025 8:15 AM EDT Clinical Support [facility] [address] [place] [phone] Nkechi Grajeda, EDD 01/07/2025 9:30 AM EDT PACE Home Care / PACE Home Visit Em[facility] [address] [place] [phone] Merlin Forbes 01/07/2025 6:00 PM EDT PACE Home Care / PACE Home Visit Emilee [facility] [address] [place] [phone] My Phillips 01/08/2025 10:00 AM EDT PACE Home Care / PACE Home Visit Em[facility] [address] [place] [phone] Merlin Forbes 01/08/2025 6:00 PM EDT PACE Home Care / PACE Home Visit Emilee [facility] [address] [place] [phone] My Phillips 01/09/2025 10:30 AM EDT PACE Home Care / PACE Home Visit Emilee [facility] [address] [place] [address] Merlin Forbes 01/09/2025 6:00 PM EDT PACE Home Care / PACE Home Visit Emilee [facility] [address] [place] [address] My Phillips 01/10/2025 9:30 AM EDT PACE Home Care / PACE Home Visit Emilee [facility] [address] [place] [phone] Merlin Forbes 01/10/2025 10:00 AM EDT Clinical Support Emilee MAHONEY [place] [address] [place] [address] 01/10/2025 6:00 PM EDT PACE Home Care / PACE Home Visit Emilee [facility] [address] [place] [phone] My Phillips 01/13/2025 9:30 AM EDT PACE Home Care / PACE Home Visit Emilee [facility] [address] [place] [phone] Merlin Forbes 01/13/2025 6:00 PM EDT PACE Home Care / PACE Home Visit Em[facility] [address] [place] [phone] My Phillips 01/14/2025 7:00 AM EDT Clinical Support [facility] [address] [place] [address] Nkechi Grajeda RN 01/14/2025 9:30 AM EDT PACE Home Care / PACE Home Visit Em[facility] [address] [place] [address] Merlin Forbes 01/14/2025 6:00 PM EDT PACE Home Care / PACE Home Visit Em[facility] [address] [place] [phone] My Phillips 01/15/2025 10:00 AM EDT PACE Home Care / PACE Home Visit Em[facility] [address] [place] [phone] Merlin Forbes 01/15/2025 6:00 PM EDT PACE Home Care / PACE Home Visit Em[facility] [address] [place] [phone] My Phillips 01/16/2025 10:30 AM EDT PACE Home Care / PACE Home Visit Em[facility] [address] [place] [phone] Merlin Forbes 01/16/2025 6:00 PM EDT PACE Home Care / PACE Home Visit Emilee [facility] [address] [place] [phone] My Phillips 01/17/2025 9:30 AM EDT PACE Home Care / PACE Home Visit Emilee [facility] [address] [place] [phone] Merlin Forbes 01/17/2025 6:00 PM EDT PACE Home Care / PACE Home Visit Emilee [facility] [address] [place] [phone] My Phillips 01/18/2025 8:30 AM EDT PACE Home Care / PACE Home Visit Em[facility] [address] [place] [phone] Anabelle Valdez 01/19/2025 8:30 AM EST PACE Home Care / PACE Home Visit Em[facility] [address] [place] [phone] Anabelle Valdez 01/20/2025 9:30 AM EST PACE Home Care / PACE Home Visit Em[facility] [address] [place] [address] Merlin Forbes 01/20/2025 6:00 PM EST PACE Home Care / PACE Home Visit Em[facility] [address] [place] [address] My Phillips 01/21/2025 7:00 AM EST Clinical Support [facility] [address] [place] [address] Nkechi Grajeda RN 01/21/2025 9:30 AM EST PACE Home Care / PACE Home Visit Em[facility] [address] [place] [address] Merlin Forbes 01/21/2025 10:45 AM EST Clinical Support Emilee MAHONEY [place] [address] [place] [address] 01/21/2025 6:00 PM EST PACE Home Care / PACE Home Visit Em[facility] [address] [place] [address] My Phillips 01/22/2025 10:00 AM EST PACE Home Care / PACE Home Visit Em[facility] [address] [place] [address] Merlin Forbes 01/22/2025 6:00 PM EST PACE Home Care / PACE Home Visit Em[facility] [address] [place] [address] My Phillips 01/23/2025 10:30 AM EST PACE Home Care / PACE Home Visit Em[facility] [address] [place] [address] Merlin Forbes 01/23/2025 6:00 PM EST PACE Home Care / PACE Home Visit Em[facility] [address] [place] [address] My Phillips 01/24/2025 9:30 AM EST PACE Home Care / PACE Home Visit Em[facility] [address] [place] [address] Merlin Forbes 01/24/2025 6:00 PM EST PACE Home Care / PACE Home Visit Em[facility] [address] [place] [address] My Phillips 01/27/2025 9:30 AM EST PACE Home Care / PACE Home Visit Emilee [facility] [address] [place] [address] Merlin Forbes 01/27/2025 6:00 PM EST PACE Home Care / PACE Home Visit Em[facility] [address] [place] [address] My Phillips 01/28/2025 7:00 AM EST Clinical Support [facility] [address] [place] [address] Nkechi Grajeda RN 01/28/2025 9:30 AM EST PACE Home Care / PACE Home Visit Em[facility] [address] [place] [address] Merlin Forbes 01/28/2025 6:00 PM EST PACE Home Care / PACE Home Visit Em[facility] [address] [place] [address] My Phillips 01/29/2025 10:00 AM EST PACE Home Care / PACE Home Visit Em[facility] [address] [place] [address] Merlin Forbes 01/29/2025 6:00 PM EST PACE Home Care / [facility] Home Visit [facility] [address] [place] [address] My Phillips 01/30/2025 10:30 AM EST PACE Home Care / PACE Home Visit [facility] [place] [facility] [address] [place] [address] Merlin Forbes 01/30/2025 6:00 PM EST PACE Home Care / P[facility] Home Visit [facility] [place] [facility] [address] [place] [phone] My Phillips 01/31/2025 9:30 AM EST PACE Home Care / [facility] Visit [facility] [address] [place] [phone] Merlin Forbes 01/31/2025 11:00 AM EST PACE External Visit [facility] [place] [address] [place] [address] 01/31/2025 6:00 PM EST PACE Home Care / PACE Home Visit [facility] [place] [facility] [address] [place] [phone] My Phillips 02/01/2025 8:30 AM EST PACE Home Care / PACE Home Visit [facility] [place] [facility] [address] [place] [phone] Anabelle Valdez 02/02/2025 8:30 AM EST PACE Home Care / P[facility] Home Visit [facility] [place] [facility] [address] [place] [phone] Anabelle Valdez 02/03/2025 9:30 AM EST PACE Home Care / P[facility] Home Visit [facility] [place] [facility] [address] [place] [phone] Merlin Forbes 02/03/2025 6:00 PM EST PACE Home Care / PACE Home Visit Emilee [facility] [address] [place] [address] My Phillips 02/04/2025 7:00 AM EST Clinical Support [facility] [address] [place] [address] Nkechi Grajeda, EDD 02/04/2025 8:15 AM EST Clinical Support [facility] [place] [facility] [address] [place] [address] Nkechi Grajeda, EDD 02/04/2025 9:30 AM EST PACE Home Care / PACE Home Visit Em[facility] [address] [place] [phone] Merlin Forbes 02/04/2025 6:00 PM EST PACE Home Care / PACE Home Visit Em[facility] [address] [place] [phone] My Phillips 02/05/2025 10:00 AM EST PACE Home Care / PACE Home Visit [facility] [address] [place] [phone] Merlin Forbes 02/05/2025 6:00 PM EST PACE Home Care / PACE Home Visit Em[facility] [address] [place] [phone] My Phillips 02/06/2025 10:30 AM EST PACE Home Care / PACE Home Visit Em[facility] [address] [place] [phone] Merlin Forbes 02/06/2025 6:00 PM EST PACE Home Care / PACE Home Visit [facility] [address] [place] [phone] My Phillips 02/07/2025 9:30 AM EST PACE Home Care / PACE Home Visit [facility] [address] [place] [address] Merlin Forbes 02/07/2025 6:00 PM EST PACE Home Care / PACE Home Visit [facility] [address] [place] [address] My Phillips 02/10/2025 9:30 AM EST PACE Home Care / PACE Home Visit [facility] [address] [place] [address] Merlin Forbes 02/10/2025 6:00 PM EST PACE Home Care / PACE Home Visit [facility] [address] [place] [address] My Phillips 02/11/2025 7:00 AM EST Clinical Support [facility] [address] [place] [phone] Nkechi Grajeda RN 02/11/2025 9:30 AM EST PACE Home Care / PACE Home Visit [facility] [address] [place] [address] Merlin Forbes 02/11/2025 6:00 PM EST PACE Home Care / PACE Home Visit [facility] [address] [place] [phone] My Phillips 02/12/2025 10:00 AM EST PACE Home Care / PACE Home Visit [facility] [address] [place] [phone] Merlin Forbes 02/12/2025 6:00 PM EST PACE Home Care / PACE Home Visit [facility] [address] [place] [address] My Phillips 02/13/2025 10:30 AM EST PACE Home Care / P[facility] Home Visit [facility] [place] [facility] [address] [place] [phone] Merlin Forbes 02/13/2025 6:00 PM EST PACE Home Care / P[facility] Home Visit [facility] [place] [facility] [address] [place] [phone] My Phillips 02/18/2025 7:00 AM EST Clinical Support [facility] [address] [place] [phone] Nkechi Grajeda, EDD 02/25/2025 7:00 AM EST Clinical Support [facility] [place] [facility] [address] [place] [phone] Nkechi Grajeda, EDD 02/27/2025 10:40 AM EST Clinical Support [facility] [place] [address] [place] [phone] 03/04/2025 7:00 AM EST Clinical Support [facility] [place] [facility] [address] [place] [phone] Nkechi Grajeda, EDD 03/04/2025 8:15 AM EST Clinical Support [facility] [address] [place] [phone] Nkechi Grajeda, EDD 03/11/2025 7:00 AM EST Clinical Support [facility] [address] [place] [phone] Nkechi Grajeda, EDD 03/18/2025 7:00 AM EST Clinical Support [facility] [address] [place] [phone] Nkechi Grajeda, EDD 03/25/2025 7:00 AM EST Clinical Support [facility] [address] [place] [phone] Nkechi Grajeda, EDD 04/01/2025 7:00 AM EST Clinical Support [facility] [place] [facility] [address] [address] Nkechi Grajeda, EDD 04/01/2025 8:15 AM EST Clinical Support [facility] [place] [facility] [address] [phone] Nkechi Grajeda, EDD 04/08/2025 7:00 AM EST Clinical Support [facility] [place] [facility] [address] [phone] Nkechi Grajeda, EDD 04/14/2025 9:25 AM EST Office Visit [facility] [address] [place] [address] Dillon Mendosa MD [address] [place] [address] [place] [address] 04/15/2025 7:00 AM EST Clinical Support [facility] [place] [facility] [address] [phone] Nkechi Grajeda RN 04/22/2025 7:00 AM EST Clinical Support [facility] [place] [facility] [address] [address] Nkechi Grajeda, EDD 04/29/2025 7:00 AM EST Clinical Support [facility] [place] [facility] [address] [address] Nkechi Grajeda, EDD 04/29/2025 8:15 AM EST Clinical Support [facility] [place] [facility] [address] [address] Nkechi Grajeda, EDD 05/06/2025 7:00 AM EST Clinical Support [facility] [place] [facility] [address] [phone] Nkechi Grajeda, EDD 05/13/2025 7:00 AM EST Clinical Support [facility] [place] [facility] [address] [address] Nkechi Grajeda, RN 05/20/2025 7:00 AM EST Clinical Support [facility] [address] [place] [phone] Nkechi Grajeda, EDD 05/27/2025 7:00 AM EDT Clinical Support [facility] [address] [place] [phone] Nkechi Grajeda, EDD 05/27/2025 8:15 AM EDT Clinical Support [facility] [address] [place] [phone] Nkechi Grajeda, EDD 06/03/2025 7:00 AM EDT Clinical Support [facility] [address] [place] [phone] Nkechi Grajeda, EDD 06/10/2025 7:00 AM EDT Clinical Support [facility] [address] [place] [phone] Nkechi Grajeda, EDD 06/17/2025 7:00 AM EDT Clinical Support [facility] [address] [place] [phone] Nkechi Grajeda, EDD 06/24/2025 7:00 AM EDT Clinical Support [facility] [address] [place] [phone] Nkechi Grajeda, EDD 06/24/2025 8:15 AM EDT Clinical Support [facility] [address] [place] [phone] Nkechi Grajeda, RN 07/01/2025 7:00 AM EDT Clinical Support [facility] [address] [place] [phone] Nkechi Grajeda, EDD 07/08/2025 7:00 AM EDT Clinical Support [facility] [address] [place] [phone] Nkechi Grajeda, EDD 07/15/2025 7:00 AM EDT Clinical Support [facility] [address] [phone] Nkechi Grajeda, EDD 07/22/2025 8:15 AM EDT Clinical Support [address] [address] Nkechi Grajeda, EDD 08/19/2025 8:15 AM EDT Clinical Support [address] [phone] Nkechi Grajeda, EDD 09/16/2025 8:15 AM EDT Clinical Support [address] [phone] Nkechi Grajeda, EDD 10/14/2025 8:15 AM EDT Clinical Support [address] [phone] Nkechi Grajeda, EDD 11/11/2025 8:15 AM EDT Clinical Support [address] [phone] Nkechi Grajeda, EDD 12/09/2025 8:15 AM EDT Clinical Support [address] [phone] Nkechi Grajeda, RN documented as of this encounter Visit Diagnoses Not on filedocumented in this encounter Additional Health Concerns Assessment Noted Time PHQ-9 Depression Total Score: 20 025 12:16 PM EDT documented as of this encounter Care Teams Teletypewriter Installer Relationship Specialty Start Date End Date Deloris Tobias NP [address] [place] [phone] PCP - General Family Medicine 12/01/24 documented as of this encounter
--- OUTSIDE RECORDS SUMMARY | 2024-12-11 11:00 | XMS_ITS | Encounter Summary ---
Author Organization [facility] Address [address] [place] [address] Care Team Providers Care Bottle Gauger Name Role Phone Deloris Tobias PRINCIPAL PLANNER Primary Care Provider [phone] Encounter Details Date Type Department Care Team (Latest Contact Info) Description 12/11/2024 11:00 AM EDT PACE Assessment [facility] [address] [place] [phone] Audrey Baptiste RN Adult general medical examination (Primary Dx) Social History Tobacco Use Types Packs/Day Years [...] on file documented as of this encounter Last Filed Vital Signs Vital Sign Reading Time Taken Comments Blood Pressure 104/74 12/11/2024 11:36 AM EDT Pulse 63 12/11/2024 11:36 AM EDT Temperature 36.4 C (97.5 F) 12/11/2024 11:36 AM EDT Respiratory Rate - - Oxygen Saturation 95% 12/11/2024 11:39 AM EDT Inhaled Oxygen Concentration - - Weight 143 kg (316 lb 3.2 oz) 12/11/2024 11:36 A M EDT Height - - Body Mass Index 42.88 12/01/2024 9:11 PM EDT documented in this encounter Progress Notes * Audrey Baptiste RN - 12/11/2024 11:00 AM EDT Par seen in clinic for semi annual assessment documented in this encounter Plan of Treatment Upcoming Encounters Date Type Department Care Team (Late st Contact Info) Description 12/16/2024 9:30 AM EDT PACE Home Care / PACE Home Visit Emilee [facility]ONEY [facility] [address] [place] [phone] Merlin Forbes 12/16/2024 11:00 AM EDT Office Visit Emilee MARU TURCIOS [address] [phone] Deloris Tobias NP [address] [address] 12/16/2024 6:00 PM EDT PACE Home Care / PACE Home Visit Emilee [facility]U TUR[facility] [address] [place] [phone] My Phillips 12/17/2024 7:00 AM EDT Clinical Support [facility] [place] [facility] [address] [place] [phone] Nkechi Grajeda RN 12/17/2024 9:30 AM EDT PACE Home Care / PACE Home Visit Em[facility] [address] [place] [phone] Merlin Forbes 12/17/2024 11:00 AM EDT Treatment Emilee MAHONEY MA Occupational Therapy [address] [place] [phone] Tyler Ling OT 12/17/2024 6:00 PM EDT PACE Home Care / PACE Home Visit Emilee [facility] [address] [place] [phone] My Phillips 12/18/2024 10:00 AM EDT PACE Home Care / PACE Home Visit Emilee [facility]ONEY [facility] [address] [place] [phone] Merlin Forbes 12/18/2024 6:00 PM EDT PACE Home Care / PACE Home Visit Emilee [facility]ONE[facility] [address] [place] [phone] My Phillips 12/19/2024 10:30 AM EDT PACE Home Care / PACE Home Visit Emilee [facility] [address] [place] [phone] Merlin Forbes 12/19/2024 6:00 PM EDT PACE Home Care / PACE Home Visit Emilee MA[facility]ONEY [facility] [address] [place] [phone] My Phillips 12/20/2024 9:00 AM EDT Appointment [address] [phone] 12/20/2024 9:30 AM EDT PACE Home Care / PACE Home Visit Emilee [facility]ONEY [facility] [address] [place] [phone] Merlin Forbes 12/20/2024 6:00 PM EDT PACE Home Care / PACE Home Visit Emilee [facility]ONEY [facility] [address] [place] [phone] My Phillips 12/21/2024 8:30 AM EDT PACE Home Care / PACE Home Visit Emilee [facility] [address] [place] [address] Anabelle Valdez 12/22/2024 8:30 AM EDT PACE Home Care / PACE Home Visit Emilee [facility]ONEY [facility] [address] [place] [phone] Anabelle Valdez 12/23/2024 9:30 AM EDT PACE Home Care / PACE Home Visit Emilee MAHONEY [facility] [address] [place] [phone] Merlin Forbes 12/23/2024 6:00 PM EDT PACE Home Care / PACE Home Visit Emilee MA[facility]ONEY [facility] [address] [place] [phone] My Phillips 12/24/2024 7:00 AM EDT Clinical Support [facility] [place] [facility] [address] [place] [phone] Nkechi Grajeda RN 12/24/2024 9:30 AM EDT PACE Home Care / PACE Home Visit Emilee [facility]ONEY [facility] [address] [place] [phone] Merlin Forbes 12/24/2024 6:00 PM EDT PACE Home Care / PACE Home Visit Emilee MAHONEY [facility] [address] [place] [phone] My Phillips 12/25/2024 10:00 AM EDT PACE Home Care / PACE Home Visit Emilee MAHONEY [facility] [address] [place] [phone] Merlin Forbes 12/25/2024 6:00 PM EDT PACE Home Care / PACE Home Visit Emilee [facility]ONEY [facility] [address] [place] [phone] My Phillips 12/26/2024 10:40 AM EDT Clinical Support Emilee MAHONEY MA [address] [place] [phone] 12/26/2024 6:00 PM EDT PACE Home Care / PACE Home Visit Emilee [facility] [address] [place] [phone] My Phillips 12/27/2024 9:30 AM EDT PACE Home Care / PACE Home Visit Emilee MAHONEY [facility] [address] [place] [phone] Merlin Forbes 12/27/2024 6:00 PM EDT PACE Home Care / PACE Home Visit Emilee MAHONEY [place] [facility] [address] [place] [phone] My Phillips 12/30/2024 9:30 AM EDT PACE Home Care / PACE Home Visit Emilee MA[facility]ONEY [facility] [address] [place] [phone] Merlin Forbes 12/30/2024 6:00 PM EDT PACE Home Care / PACE Home Visit Emilee MAHONEY [facility] [address] [place] [phone] My Phillips 12/31/2024 7:00 AM EDT Clinical Support [facility] [place] [facility] [address] [place] [phone] Nkechi Grajeda RN 12/31/2024 9:30 AM EDT PACE Home Care / PACE Home Visit Emilee MAHONEY [place] [facility] [address] [place] [phone] Merlin Forbes 12/31/2024 10:00 AM EDT Ancillary Procedure [facility] [address] [place] [address] 12/31/2024 6:00 PM EDT PACE Home Care / PACE Home Visit Emilee MAHONEY [facility] [address] [place] [phone] My Phillips 01/01/2025 10:00 AM EDT PACE Home Care / PACE Home Visit Emilee MAHONEY [place] [facility] [address] [place] [phone] Merlin Forbes 01/01/2025 6:00 PM EDT PACE Home Care / PACE Home Visit Emilee [facility]HONEY [facility] [address] [place] [phone] My Phillips 01/02/2025 10:30 AM EDT PACE Home Care / PACE Home Visit Emilee MAHONEY [facility] [address] [place] [phone] Merlin Forbes 01/02/2025 3:00 PM EDT Clinical Support Emilee MAHONEY MA [address] [place] [phone] 01/02/2025 6:00 PM EDT PACE Home Care / PACE Home Visit Emilee MAHONEY [place] [facility] [address] [place] [phone] My Phillips 01/03/2025 9:30 AM EDT PACE Home Care / PACE Home Visit Emilee MAHONEY [facility] [address] [place] [phone] Merlin Forbes 01/03/2025 6:00 PM EDT PACE Home Care / PACE Home Visit Emilee MAHONEY [facility] [address] [place] [phone] My Phillips 01/04/2025 8:30 AM EDT PACE Home Care / PACE Home Visit Emilee MAHONEY [facility] [address] [place] [phone] Anabelle Valdez 01/05/2025 8:30 AM EDT PACE Home Care / PACE Home Visit Emilee MAHONEY [facility] [address] [place] [phone] Anabelle Valdez 01/06/2025 9:30 AM EDT PACE Home Care / PACE Home Visit Emilee MAHONEY [facility] [address] [place] [phone] Merlin Forbes 01/06/2025 6:00 PM EDT PACE Home Care / PACE Home Visit Emilee MAHONEY [facility] [address] [place] [phone] My Phillips 01/07/2025 7:00 AM EDT Clinical Support [facility] [place] [facility] [address] [place] [phone] Nkechi Grajeda, RN 01/07/2025 8:15 AM EDT Clinical Support [facility] [place] [facility] [address] [place] [phone] Nkechi Grajeda, RN 01/07/2025 9:30 AM EDT PACE Home Care / PACE Home Visit Em[facility]Y [facility] [address] [place] [phone] Merlin Forbes 01/07/2025 6:00 PM EDT PACE Home Care / PACE Home Visit Emilee MAHONEY [facility] [address] [place] [phone] My Phillips 01/08/2025 10:00 AM EDT PACE Home Care / PACE Home Visit Emilee MAHONEY [place] [facility] [address] [place] [phone] Merlin Forbes 01/08/2025 6:00 PM EDT PACE Home Care / PACE Home Visit Emilee MAHONEY [facility] [address] [place] [phone] My Phillips 01/09/2025 10:30 AM EDT PACE Home Care / PACE Home Visit Emilee MAHONEY [facility] [address] [place] [phone] Merlin Forbes 01/09/2025 6:00 PM EDT PACE Home Care / PACE Home Visit Emilee MAHONEY [place] [facility] [address] [place] [phone] My Phillips 01/10/2025 9:30 AM EDT PACE Home Care / PACE Home Visit Emilee MAHONEY [place] [facility] [address] [place] [phone] Merlin Forbes 01/10/2025 10:00 AM EDT Clinical Support Emilee MAHONEY MA [address] [place] [phone] 01/10/2025 6:00 PM EDT PACE Home Care / PACE Home Visit Emilee MAHONEY [facility] [address] [place] [phone] My Phillips 01/13/2025 9:30 AM EDT PACE Home Care / PACE Home Visit Emilee MAHONEY [facility] [address] [place] [phone] Merlin Forbes 01/13/2025 6:00 PM EDT PACE Home Care / PACE Home Visit Emilee MAHONEY [place] [facility] [address] [place] [phone] My Phillips 01/14/2025 7:00 AM EDT Clinical Support [facility] [place] [facility] [address] [place] [phone] Nkechi Grajeda RN 01/14/2025 9:30 AM EDT PACE Home Care / PACE Home Visit Emilee MAHONEY [place] [facility] [address] [place] [phone] Merlin Forbes 01/14/2025 6:00 PM EDT PACE Home Care / [facility] Visit [facility] [address] [place] [phone] My Phillips 01/15/2025 10:00 AM EDT PACE Home Care / PACE Home Visit [facility] [place] [facility] [address] [place] [phone] Merlin Forbes 01/15/2025 6:00 PM EDT PACE Home Care / PACE Home Visit [facility] [place] [facility] [address] [place] [phone] My Phillips 01/16/2025 10:30 AM EDT PACE Home Care / PACE Home Visit [facility] [place] [facility] [address] [place] [phone] Merlin Forbes 01/16/2025 6:00 PM EDT PACE Home Care / PACE Home Visit [facility] [place] [facility] [address] [place] [phone] My Phillips 01/17/2025 9:30 AM EDT PACE Home Care / PACE Home Visit [facility] [place] [facility] [address] [place] [phone] Merlin Forbes 01/17/2025 6:00 PM EDT PACE Home Care / PACE Home Visit [facility] [place] [facility] [address] [place] [phone] My Phililps 01/18/2025 8:30 AM EDT PACE Home Care / PACE Home Visit [facility] [place] [facility] [address] [place] [phone] Anabelle Valdez 01/19/2025 8:30 AM EST PACE Home Care / PACE Home Visit [facility] [place] [facility] [address] [place] [phone] Anabelle Valdez 01/20/2025 9:30 AM EST PACE Home Care / PACE Home Visit Emilee MAHONEY [facility] [address] [place] [phone] Merlin Forbes 01/20/2025 6:00 PM EST PACE Home Care / PACE Home Visit Emilee MAHONEY [facility] [address] [place] [phone] My Phillips 01/21/2025 7:00 AM EST Clinical Support [facility] [place] [facility] [address] [place] [phone] Nkechi Grajeda RN 01/21/2025 9:30 AM EST PACE Home Care / PACE Home Visit Emilee MAHONEY [facility] [address] [place] [phone] Merlin Forbes 01/21/2025 10:45 AM EST Clinical Support Emilee MAHONEY MA [address] [place] [phone] 01/21/2025 6:00 PM EST PACE Home Care / PACE Home Visit Emilee MAHONEY [facility] [address] [place] [phone] My Phillips 01/22/2025 10:00 AM EST PACE Home Care / PACE Home Visit Emilee MAHONEY [place] [facility] [address] [place] [phone] Merlin Forbes 01/22/2025 6:00 PM EST PACE Home Care / PACE Home Visit Emilee MAHONEY [facility] [address] [place] [phone] My Phillips 01/23/2025 10:30 AM EST PACE Home Care / PACE Home Visit Emilee MAHONEY [facility] [address] [place] [phone] Merlin Forbes 01/23/2025 6:00 PM EST PACE Home Care / PACE Home Visit Emilee MAHONEY [facility] [address] [place] [phone] My Phillips 01/24/2025 9:30 AM EST PACE Home Care / PACE Home Visit Emilee MAHONEY [facility] [address] [place] [phone] Merlin Forbes 01/24/2025 6:00 PM EST PACE Home Care / PACE Home Visit [facility] [address] [place] [phone] My Phillips 01/27/2025 9:30 AM EST PACE Home Care / PACE Home Visit Emilee MAHONEY [facility] [address] [place] [phone] Merlin Forbes 01/27/2025 6:00 PM EST PACE Home Care / PACE Home Visit Emilee MAHONEY [facility] [address] [place] [phone] My Phillips 01/28/2025 7:00 AM EST Clinical Support [facility] [place] [facility] [address] [place] [phone] Nkechi Grajeda RN 01/28/2025 9:30 AM EST PACE Home Care / PACE Home Visit Em[facility]Y [facility] [address] [place] [phone] Merlin Forbes 01/28/2025 6:00 PM EST PACE Home Care / PACE Home Visit [facility] [place] [facility] [address] [place] [phone] My Phillips 01/29/2025 10:00 AM EST PACE Home Care / PACE Home Visit [facility] [place] [facility] [address] [place] [phone] Merlin Forbes 01/29/2025 6:00 PM EST PACE Home Care / PACE Home Visit [facility] [place] [facility] [address] [place] [phone] My Phillips 01/30/2025 10:30 AM EST PACE Home Care / PACE Home Visit [facility] [place] [facility] [address] [place] [phone] Merlin Forbes 01/30/2025 6:00 PM EST PACE Home Care / PACE Home Visit [facility] [place] [facility] [address] [place] [phone] My Phillips 01/31/2025 9:30 AM EST PACE Home Care / PACE Home Visit [facility] [place] [facility] [address] [place] [phone] Merlin Forbes 01/31/2025 11:00 AM EST PACE External Visit [facility] [place] [address] [place] [phone] 01/31/2025 6:00 PM EST PACE Home Care / PACE Home Visit [facility] [place] [facility] [address] [place] [phone] My Phillips 02/01/2025 8:30 AM EST PACE Home Care / PACE Home Visit [facility] [place] [facility] [address] [place] [phone] Anabelle Valdez 02/02/2025 8:30 AM EST PACE Home Care / PACE Home Visit [facility] [place] [facility] [address] [place] [phone] Anabelle Valdez 02/03/2025 9:30 AM EST PACE Home Care / PACE Home Visit [facility] [place] [facility] [address] [place] [phone] Merlin Forbes 02/03/2025 6:00 PM EST PACE Home Care / PACE Home Visit Em[facility]Y [facility] [address] [place] [phone] My Phillips 02/04/2025 7:00 AM EST Clinical Support [facility] [place] [facility] [address] [place] [phone] Nkechi Grajeda, EDD 02/04/2025 8:15 AM EST Clinical Support [facility] [place] [facility] [address] [place] [phone] Nkechi Grajeda, EDD 02/04/2025 9:30 AM EST PACE Home Care / PACE Home Visit Em[facility] [place] [facility] [address] [place] [phone] Merlin Forbes 02/04/2025 6:00 PM EST PACE Home Care / PACE Home Visit Em[facility]Y [place] [facility] [address] [place] [phone] My Phillips 02/05/2025 10:00 AM EST PACE Home Care / PACE Home Visit [facility] [place] [facility] [address] [place] [phone] Merlin Forbes 02/05/2025 6:00 PM EST PACE Home Care / PACE Home Visit [facility] [place] [facility] [address] [place] [phone] My Phillips 02/06/2025 10:30 AM EST PACE Home Care / P[facility] Visit [facility] [place] [facility] [address] [place] [phone] Merlin Forbes 02/06/2025 6:00 PM EST PACE Home Care / PACE Home Visit Em[facility]Y [facility] [address] [place] [phone] My Phillips 02/07/2025 9:30 AM EST PACE Home Care / PACE Home Visit Em[facility] [address] [place] [phone] Merlin Forbes 02/07/2025 6:00 PM EST PACE Home Care / PACE Home Visit Em[facility] [address] [place] [phone] My Phillips 02/10/2025 9:30 AM EST PACE Home Care / PACE Home Visit [facility] [address] [place] [phone] Merlin Forbes 02/10/2025 6:00 PM EST PACE Home Care / PACE Home Visit Em[facility] [address] [place] [phone] My Phillips 02/11/2025 7:00 AM EST Clinical Support [facility] [place] [facility] [address] [place] [phone] Nkechi Grajeda RN 02/11/2025 9:30 AM EST PACE Home Care / PACE Home Visit [facility] [address] [place] [phone] Merlin Forbes 02/11/2025 6:00 PM EST PACE Home Care / P[facility] Visit [facility] [place] [facility] [address] [place] [phone] My Phillips 02/12/2025 10:00 AM EST PACE Home Care / P[facility] Visit [facility] [place] [facility] [address] [place] [phone] Merlin Forbes 02/12/2025 6:00 PM EST PACE Home Care / PACE Home Visit [facility] [place] [facility] [address] [place] [phone] My Phillips 02/13/2025 10:30 AM EST PACE Home Care / PACE Home Visit [facility] [place] [facility] [address] [place] [phone] Merlin Forbse 02/13/2025 6:00 PM EST PACE Home Care / PACE Home Visit [facility] [place] [facility] [address] [place] [phone] My Phillips 02/18/2025 7:00 AM EST Clinical Support [facility] [place] [facility] [address] [place] [phone] Nkechi Grajeda, EDD 02/25/2025 7:00 AM EST Clinical Support [facility] [place] [facility] [address] [place] [phone] Nkechi Grajeda, EDD 02/27/2025 10:40 AM EST Clinical Support [facility] [place] [address] [place] [phone] 03/04/2025 7:00 AM EST Clinical Support [facility] [place] [facility] [address] [place] [phone] Nkechi Grajeda, EDD 03/04/2025 8:15 AM EST Clinical Support [facility] [place] [facility] [address] [place] [phone] Nkechi Grajeda, EDD 03/11/2025 7:00 AM EST Clinical Support [facility] [place] [facility] [address] [place] [phone] Nkechi Grajeda, EDD 03/18/2025 7:00 AM EST Clinical Support [facility] [place] [facility] [address] [place] [phone] Nkechi Grajeda, RN 03/25/2025 7:00 AM EST Clinical Support [facility] [place] [facility] [address] [place] [address], [place] [address] Nkechi Grajeda, EDD 04/01/2025 7:00 AM EST Clinical Support [facility] [place] [address] [phone] Nkechi Grajeda, EDD 04/01/2025 8:15 AM EST Clinical Support [facility] [address] [phone] Nkechi Grajeda, EDD 04/08/2025 7:00 AM EST Clinical Support [facility] [address] [phone] Nkechi Grajeda RN 04/14/2025 9:25 AM EST Office Visit [facility] [address] [facility] [address] [place] [address] Dillon Mendosa MD [address] [place] [address] [place] [address] 04/15/2025 7:00 AM EST Clinical Support [facility] [address] [phone] Nkechi Grajeda RN 04/22/2025 7:00 AM EST Clinical Support [facility] [address] [phone] Nkechi Grajeda RN 04/29/2025 7:00 AM EST Clinical Support [facility] [place] [facility] [address] [phone] Nkechi Grajeda RN 04/29/2025 8:15 AM EST Clinical Support [facility] [address] [phone] Nkechi Grajeda RN 05/06/2025 7:00 AM EST Clinical Support [facility] [address] [phone] Nkechi Grajeda, EDD 05/13/2025 7:00 AM EST Clinical Support [facility] [place] [facility] [address] [place] [phone] Nkechi Grajeda, RN 05/20/2025 7:00 AM EST Clinical Support [facility] [place] [facility] [address] [place] [phone] Nkechi Grajeda, EDD 05/27/2025 7:00 AM EDT Clinical Support [facility] [place] [facility] [address] [place] [phone] Nkechi Grajeda, EDD 05/27/2025 8:15 AM EDT Clinical Support [facility] [place] [facility] [address] [place] [phone] Nkechi Grajeda, EDD 06/03/2025 7:00 AM EDT Clinical Support [facility] [place] [facility] [address] [phone] Nkechi Grajeda, EDD 06/10/2025 7:00 AM EDT Clinical Support [facility] [place] [facility] [address] [place] [phone] Nkechi Grajeda, EDD 06/17/2025 7:00 AM EDT Clinical Support [facility] [place] [facility] [address] [place] [phone] Nkechi Grajeda, EDD 06/24/2025 7:00 AM EDT Clinical Support [facility] [place] [facility] [address] [place] [phone] Nkechi Grajeda, RN 06/24/2025 8:15 AM EDT Clinical Support [facility] [place] [facility] [address] [place] [phone] Nkechi Grajeda, EDD 07/01/2025 7:00 AM EDT Clinical Support [facility] [place] [facility] [address] [place] [phone] Nkechi Grajeda, EDD 07/08/2025 7:00 AM EDT Clinical [facility] [place] [facility] [address] [phone] Nkechi Grajeda RN 07/15/2025 7:00 AM EDT Clinical Support [facility] [address] [phone] Nkechi Grajeda, EDD 07/22/2025 8:15 AM EDT Clinical Support [facility] [place] [facility] [address] [phone] Nkechi Grajeda, EDD 08/19/2025 8:15 AM EDT Clinical Support [facility] [address] [phone] Nkechi Grajeda RN 09/16/2025 8:15 AM EDT Clinical Support [facility] [address] [phone] Nkechi Grajeda RN 10/14/2025 8:15 AM EDT Clinical Support [facility] [address] [phone] Nkechi Grajeda, EDD 11/11/2025 8:15 AM EDT Clinical Support [facility] [address] [phone] Nkechi Grajeda, EDD 12/09/2025 8:15 AM EDT Clinical Support [facility] [place] [facility] [address] [phone] Nkechi Grajeda, EDD documented as of this encounter Visit Diagnoses Diagnosis Adult general medical examination- Primary Unspecified general medical examination Encounter for adjustment or management of cardiac device documented in this encounter Additional Health Concerns Assessment Noted Time PHQ-9 Depression Total Score: 20 12/11/2 025 12:16 PM EDT documented as of this encounter Care Teams Bottle Gauger Relationship Specialty Start Date End Date Deloris Tobias NP [address] [place] [address] [place] [address] PCP - General Family Medicine 12/01/24 documented as of this encounter
--- OUTSIDE RECORDS SUMMARY | 2024-12-11 11:00 | XMS_ITS | Encounter Summary ---
Author Organization [facility] Address [address] [place] [address] Care Team Providers Care Step Down Nurse Name Role Phone Mile Tobias VP [employer] Primary Care Provider [phone] Reason for Referral * Imaging (Routine) - Authorized Specialty Diagnoses / Procedures Referred By Tonja short Referred To Contact Radiology Diagnoses Abnormal LFTs Procedures US Abdomen Complete Mile Tobias NP [address] [facility] [address] [place] [address] Phone: tel: fax: [facility] Ultrasound [address] [place] [address] Phone: tel: Referral ID Status Reason Start Date Expiration Date V isits Requested Visits Authorized [id number] Authorized 12/11/2024 12/11/2025 1 1 Reason for Visit * Reason Comments Semi-Annual Assessment Encounter Details Date Type Department Care Team (Latest Contact Info) Description 12/11/2024 11:00 AM EDT PACE Assessment [facility] [address] [place] [address] Mile Tobias, JOHNATHAN [address] [facility] [address] [place] [address] Leg pain, anterior, left (Primary Dx); Abnormal LFTs; Acute on chronic combined systolic and diastolic congestive heart failure ([facility] V24, [facility] V28); Anxiety disorder due to general medical condition with panic attack; Vestibular migraine; Radiculopathy, cervical; Parkinsonism, unspecified Parkinsonism type ([facility] V24, [facility] V28); Meralgia paresthetica of left side; Diabetic polyneuropathy associated with type 2 diabetes mellitus ([facility] V24, [facility] V28); Cataract associated with type 2 diabetes mellitus ([facility] V24, [facility] V28); Arcus senilis of both eyes; Shortness of breath; Restrictive lung disease; Obstructive sleep apnea; Chronic allergic rhinitis; Ventricular tachycardia ([facility] V24, [facility] V28); Type 2 diabetes mellitus with peripheral artery disease ([facility] V24, [facility] V28); Hypertensive heart disease with heart failure ([facility] V24, [facility] V28); Primary hypertension; Chronic venous insufficiency; Chronic systolic congestive heart failure ([facility] V24, [facility] V28); Cardiac defibrillator in place; Coronary artery disease involving [place] coronary artery of [place] heart without angina pectoris; Vitamin D deficiency; Obesity, morbid ([facility] V24, [facility] V28); Constipation, chronic; Calculus of gallbladder without cholecystitis without obstruction; Benign prostatic hyperplasia with urinary frequency; Xerosis of skin; Plantar fasciitis; Other specified disorders of bone density and structure, multiple sites; Primary osteoarthritis of both knees; Leg wound, left, sequela; Callus; Type 2 diabetes mellitus with hyperglycemia, without long-term current use of insulin ([facility] V24, [facility] V28); Erectile dysfunction associated with type 2 diabetes mellitus ([facility] V24, [facility] V28); Dyslipidemia; Smokes cigarettes; Sleep paralysis; Presbyopia; Polysubstance abuse ([facility] V24, [facility] V28); Other specified anxiety disorders; Neurologic gait dysfunction; Medication management; Insomnia due to medical condition; Depression, major, recurrent, moderate ([facility] V24, [facility] V28); Alcohol abuse, episodic Social History Tobacco Use Types Packs/Day Years Used Date Smoking Tobacco: Some Days Cigarettes 0.5 31.3 Started: 09/14/1993 Smokeless Tobacco: Never Tobacco Cessation:Ready to Q uit: Not Asked; Counseling Given: Not Answered Alcohol Use Standard Drinks/Week Comments Not Currently [...] Risk Indicated 12/11/2024 9:44 PM EDT Geronimo Mane RN * [place] Suicide Severity Rating Scale (Screener/Recent Self-Report) Question Answer Date of Assessment Author 1. Wish to be (Past 1 Month) No 12/11/2024 9:44 PM EDT Bernardino Rodriguez RN 2. Non-Specific Active Suici pari Thoughts (Past 1 Month) No 12/11/2024 9:44 PM EDT Jerel Rodriguez RN 6. Suicidal Behavior (Lifetime) No 9:44 PM SULAIMANT Geronimo Rodriguez RN documented as of this encounter Ordered Prescriptions Prescription Sig Dispense Quantity Refills Last Filled Start Date End Date LORazepam (Ativan) 0.5 mg tabletIndications: Anxiety disorder due to general medical condition with panic attack Take 1 tablet (0.5 mg total) by mouth 1 (one) time each day if needed for anxiety (panic attack) for up to 10 days. Max Daily Amount: 0.5 mg 10 tablet 12/11/2024 spironolactone (Aldactone) 50 mg tabletIndications: Acute on chronic combined systolic and diastolic congestive heart failure ([facility], [facility] V28) Take 1 tablet (50 mg total) by mouth 1 (one) time each day. 28 each 11 12/11/2024 6 lidocaine (XYLOCAINE) 5 % ointmentIndication s:Leg pain, anterior, left Apply topically 1 (one) time each day. Home (Next Home) 35.44 g 12/11/2024 6 oxyCODONE (ROXICODONE) 10 mg immediate release tabletIndications: Leg pain, anterior, left Take 1 tablet (10 mg total) by mouth 2 (two) times a day if needed for severe pain for up to 7 days. Max Daily Amount: 20 mg 14 tablet 12/11/2024 5 documented in this encounter Progress Notes * Mile Tobias NP - 12/13/2024 9:13 AM EDTAssociated Problem(s): Alcohol abuse, episodic Chronic condition; denies recent ETOH use. Reports not drinking in the past 2 years. Advised against ETOH. * Mile Tobias NP - 12/13/2024 9:12 AM EDTAssociated Problem(s): Depression, major, recurrent, moderate (CMS/HCC V24, CMS/HCC V28) Chronic condition; no longer on medication for depression. PAR took himself off medication. Will discuss with medical records tech best course of action when it comes to initiating treatment for depression, anxiety, and neuropathy. * Mile Tobias NP - 12/13/2024 9:09 AM EDTAssociated Problem(s): Insomnia Chronic condition; PAR not following sleep hygiene recommendations. Encouraged to avoid napping during the day. * Mile Tobias NP - 12/13/2024 9:09 AM EDTAssociated Problem(s): Medication management PAR with polypharmacy. Goal to reduce pill burden. * Mile Tobias NP - 12/13/2024 9:08 AM EDTAssociated Problem(s): Neurologic gait dysfunction Chronic condition; stable. Continue to encourage use of rollator. Fall precautions. * Mile Tobias NP - 12/13/2024 9:08 AM EDTAssociated Problem(s): Other specified anxiety disorders (Deleted) Chronic condition; did not tolerated clonazepam. Prescribe short course of lorazepam to use as needed. * Mile Tobias NP - 12/13/2024 9:07 AM EDTAssociated Problem(s): Polysubstance abuse ([facility] V24, [facility] V28) Chronic condition; denies use od ilicit substance. Advised to avoid use of drugs. * Mile Tobias NP - 12/13/2024 9:07 AM EDTAssociated Problem(s): Presbyopia Chronic condition; stable. Recommended yearly eye exam. * Mile Tobias NP - 12/13/2024 9:06 AM EDTAssociated Problem(s): Sleep paralysis Chronic condition; referred to sleep medication but PAR cancelled visit. * Mile Tobias NP - 12/13/2024 9:06 AM EDTAssociated Problem(s): Smokes cigarettes Chronic condition; reports no longer smoking cigarettes but is vaping. Readdress smoking cessation next visit. * Mile Tobias NP - 12/13/2024 9:05 AM EDTAssociated Problem(s): Dyslipidemia Chronic condition; continue daily statin therapy. Continue monitor lipids yearly. * Mile Tobias NP - 12/13/2024 9:04 AM EDTAssociated Problem(s): Erectile dysfunction associated with type 2 diabetes mellitus (CMS/HCC V24, CMS/HCC V28) Chronic condition; unchanged. Referred to urologist for further disccusion of treatment options. * Mile Tobias NP - 12/13/2024 9:04 AM EDTAssociated Problem(s): Type 2 diabetes mellitus with hyperglycemia (CMS/HCC V24, CMS/HCC V28) Chronic condition; need to repeat Hgba1c. Continue current medications. * Mile Tobias NP - 12/13/2024 9:03 AM EDTAssociated Problem(s): Callus Chronic condition; continue to follow up with podiatry as indicated. Non- complaint with use of diabetic shoes. * Mile Tobias NP - 12/13/2024 9:02 AM EDTAssociated Problem(s): Leg wound, left, sequela Orginated from a blister. Continue wound care. Monitor for progression of healing. * Mile Tobias NP - 12/13/2024 9:00 AM EDTAssociated Problem(s): Osteoarthritis Chronic condition; labile. Continue to monitor and take APAP as indicated. * Mile Tobias NP - 12/13/2024 9:00 AM EDTAssociated Problem(s): Other specified disorders of bone density and structure, multiple sites Chronic condition; continue to encourage weight bearing exercises. Continue Vitamin D supplementation. * Mile Tobias NP - 12/13/2024 8:59 AM EDTAssociated Problem(s): Plantar fasciitis Chronic condition; uses lidocaine patches. Non-complaint with use of diabetic shhoes and other treatments. * Mile Tobias NP - 12/13/2024 8:58 AM EDTAssociated Problem(s): Xerosis of skin Chronic condition; labile. Continue to encourage PAR to use moisturizer on skin. * Mile Tobias NP - 12/13/2024 8:58 AM EDTAssociated Problem(s): Benign prostatic hyperplasia with lower urinary tract symptoms Chronic condition; labile. Continue current medication. Consider referral to urologist. * Mile Tobias NP - 12/13/2024 8:57 AM EDTAssociated Problem(s): Cholelithiasis Chronic condition; has elevated LFTs. Obtain abdominal u/s. * Mile Tobias NP - 12/13/2024 8:57 AM EDTAssociated Problem(s): Constipation, chronic Chronic condition; stable. Continue linzess and senna. * Mile Tobias NP - 12/13/2024 8:56 AM EDTAssociated Problem(s): Obesity, morbid (CMS/HCC V24, CMS/HCC V28) Chronic condition; goal iis to avoid weight gain. Continue Ozempic. * Mile Tobias NP - 12/13/2024 8:56 AM EDTAssociated Problem(s): Vitamin D deficiency Chronic condition; stable. Continue Vitamin D2 as prescribed. Monitor vitamin D level yearly. * Mile Tobias NP - 12/13/2024 8:54 AM EDTAssociated Problem(s): CAD (coronary artery disease) Chronic condition; stable. Continue current medications. Follow with cardiology as indicated. * Mile Tobias NP - 12/13/2024 8:53 AM EDTAssociated Problem(s): Cardiac defibrillator in place Chronic condition; monitored per cardiology. No recent episodes of arrhythmias. * Mile Tobias NP - 12/13/2024 8:53 AM EDTAssociated Problem(s): Chronic systolic congestive heart failure (CMS/HCC V24, CMS/HCC V28) (Deleted) Chronic condition; still has evidence of volume overload. Increase dose of spironolactone to 50 mg daily. Monitor weight. Encourage following a low sodium diet. * Mile Tobias NP - 12/13/2024 8:52 AM EDTAssociated Problem(s): Chronic venous insufficiency Chronic condition; labile. Continue compression wraps as tolerated. Encourage PAR to elevate BLE when in sitting position. * Mile Tobias NP - 12/13/2024 8:51 AM EDTAssociated Problem(s): Hypertensive disorder Chronic condition; stable. BP at goal. Continue current medication. * Mile Tobias NP - 12/13/2024 8:51 AM EDTAssociated Problem(s): Hypertensive heart disease with heart failure (CMS/HCC V24, CMS/HCC V28) Chronic condition; blood pressure stable. Continue current medication. Still has evidence of volumeoverload. Increase dose of spironolactone to 50 mg daily. Monitor weight. Encourage following a lowsodium diet. * Mile Tobias NP - 12/13/2024 8:48 AM EDTAssociated Problem(s): Type 2 diabetes mellitus with peripheral artery disease (CMS/HCC V24, CMS/HCC V28) Chronic condition. Continue to monitor BLE skin integrity. * Mile Tobias NP - 12/13/2024 8:48 AM EDTAssociated Problem(s): Ventricular tachycardia (CMS/HCC V24, CMS/HCC V28) Chronic condition; stable. Continue amiodarone as prescribed. Follow up with cardiology as indicated. * Mile Tobias NP - 12/13/2024 8:47 AM EDTAssociated Problem(s): Chronic allergic rhinitis Chronic condition; stable. Continue current medication. * Mile Tobias NP - 12/13/2024 8:46 AM EDTAssociated Problem(s): Obstructive sleep apnea Not being treated. PAR has been referred to sleep medicine, but he canceled appointment. * Mile Tobias NP - 12/13/2024 8:46 AM EDTAssociated Problem(s): Restrictive lung disease Chronic condition; per PFT. Referred to pulmonology. [place] to be secondary to obesity, decondition and CHF. Use albuterol inhaler as needed. Monitor. * Mile Tobias NP - 12/13/2024 8:45 AM EDTAssociated Problem(s): Shortness of breath Chronic condition; stable. Multifactorial. Due to CHF, deconditioning, obesity leading to restrictive lung disease. * Mile Tobias NP - 12/13/2024 8:44 AM EDTAssociated Problem(s): Arcus senilis of both eyes Chronic condition; monitor with yearly eye exam. * Mile Tobias NP - 12/13/2024 8:43 AM EDTAssociated Problem(s): Cataract associated with type 2 diabetes mellitus ([facility] V24, [facility] V28) Chronic condition; surgery for cataracts no yet indicated. Encourage yearly eye exam. * Mile Tobias NP - 12/13/2024 8:42 AM EDTAssociated Problem(s): Diabetic polyneuropathy associated with type 2 diabetes mellitus ([facility] V24, [facility] V28) Chronic condition; labile. Continue gabapentin and use lidocaine patches. No longer on duloxetine. Monitor Hgba1c. * Mile Tobias NP - 12/13/2024 8:41 AM EDTAssociated Problem(s): Leg pain, anterior, left Due to underlying wound. Also possible neuropathy. No longer taking duloxetine which was most likely helping his pain. Prescribe short course of percocet. * Mile Tobias NP - 12/13/2024 8:40 AM EDTAssociated Problem(s): Meralgia paresthetica Chronic condition; stable. Controlled with gabapentin. * Mile Tobias NP - 12/13/2024 8:40 AM EDTAssociated Problem(s): Parkinsonism ([facility] V24, [facility] V28) Improved since stopping SNRI. Continue to monitor. * Mile Tobias NP - 12/13/2024 8:39 AM EDTAssociated Problem(s): Radiculopathy, cervical Chronic condition; intermittent pain. Continue current medication. * Mile Tobias NP - 12/13/2024 8:39 AM EDTAssociated Problem(s): Vestibular migraine Chronic condition; labile. Continue current dose of topiamate. Conisder adjusting dose in the near future. * Mile Tobias NP - 12/11/2024 11:00 AM EDTAssociated Problem(s): Acute on chronic combined systolic and diastolic congestive heart failure (CMS/HCC V24, CMS/HCC V28) >>ASSESSMENT AND PLAN FOR CHRONIC SYSTOLIC CONGESTIVE HEART FAILURE (CMS/HCC V24, CMS/HCC V28) WRITTEN ON 12/13/2024 8:53 AM BY MILE TOBIAS NP Chronic condition; still has evidence of volume overload. Increase dose of spironolactone to 50 mg daily. Monitor weight. Encourage following a low sodium diet. * Mile Tobias NP - 12/11/2024 11:00 AM EDTAssociated Problem(s): Generalized anxiety disorder with panic attacks >>ASSESSMENT AND PLAN FOR OTHER SPECIFIED ANXIETY DISORDERS WRITTEN ON 12/13/2024 9:08 AM BY MILE TOBIAS NP Chronic condition; did not tolerated clonazepam. Prescribe short course of lorazepam to use as needed. * Mile Tobias NP - 12/11/2024 11:00 AM EDT lorazSubjective Patient ID: Jay Mejia is a 64 y.o. male. This visit is for a(n) Semi-Annual Assessment PAR presents for a semi-annual assessment. He reports a stabbing, stinging, aching pain in left lower leg. Nurse has been preforming wound care on LLE. Recent defibrillator repored elevated CHF status on 12/03/24 2 days after ED visit for dyspnea wherehe was given a dose of IV Lasix and then discharged home. He was then seen in clinic and treated with oral Zaroxolyn x 5 days. PAR notes minimal improvement of edema. He self increased dose of Bumex to 3 tablets daily x 4 days. Reports stopping Duloxetine about 1.5 months ago, and tremors have improved. Pain of feet is worse. Depression and anxiety seem to be worse. The following portions of the patient's chart were reviewed in this encounter and updated as appropriate: Tobacco Allergies Meds Problems Med Hx Surg Hx Fam Hx Soc Hx Social History Tobacco Use Smoking status: Some Days Current packs/day: 0.50 Average packs/day: 0.5 packs/day for 31.2 years (15.6 ttl pk-yrs) Types: Cigarettes Start date: 09/14/1993 Smokeless tobacco: Never Vaping Use Vaping status: Every Day Substance Use Topics Alcohol use: Not Currently Drug use: Not Currently Frequency: 2.0 times per week Types: Marijuana/Cannabis, Cocaine Comment: Has not used Cocaine in a long time Review of Systems Constitutional: Positive for appetite change (eating too much) and fatigue. Negative for chills, diaphoresis and fever. HENT: Negative for congestion, dental problem, ear pain, hearing loss, rhinorrhea, sinus pressure, sinus pain, sore throat and trouble swallowing. Eyes: Positive for visual disturbance. Respiratory: Positive for cough and shortness of breath. Cardiovascular: Positive for palpitations (occasionally). Negative for chest pain. Gastrointestinal: Positive for nausea. Negative for abdominal pain, blood in stool, constipation, diarrhea and vomiting. Genitourinary: Positive for frequency and urgency. Negative for hematuria. Reports urinary incontinence. Reports nocturia x 5-6 times a night. Neurological: Positive for dizziness, tremors, numbness and headaches. Psychiatric/Behavioral: Positive for dysphoric mood and sleep disturbance. Negative for suicidal ideas. The patient is nervous/anxious. Objective Physical Exam Constitutional: General: He is not in acute distress. Appearance: Normal appearance. He is obese. He is not ill-appearing or toxic-appearing. HENT: Head: Normocephalic and atraumatic. Right Ear: Tympanic membrane, ear canal and external ear normal. Left Ear: Tympanic membrane, ear canal and external ear normal. Nose: Nose normal. Mouth/Throat: Mouth: Mucous membranes are moist. Pharynx: Oropharynx is clear. Eyes: Extraocular Movements: Extraocular movements intact. Conjunctiva/sclera: Conjunctivae normal. Pupils: Pupils are equal, round, and reactive to light. Cardiovascular: Rate and Rhythm: Normal rate and regular rhythm. Pulses: Normal pulses. Heart sounds: Normal heart sounds. Pulmonary: Effort: Pulmonary effort is normal. Breath sounds: Normal breath sounds. Abdominal: General: Abdomen is flat. Bowel sounds are normal. There is no distension. Palpations: Abdomen is soft. There is no mass. Tenderness: There is no abdominal tenderness. There is no right CVA tenderness or left CVA tenderness. Hernia: No hernia is present. Musculoskeletal: Cervical back: Neck supple. Right lower leg: Edema present. Left lower leg: Edema present. Lymphadenopathy: Cervical: No cervical adenopathy. Skin: Findings: No erythema. Comments: Venous stasis changes BLE Neurological: General: No focal deficit present. Mental Status: He is alert and oriented to person, place, and time. Mental status is at baseline. Psychiatric: Mood and Affect: Mood normal. Behavior: Behavior normal. Thought Content: Thought content normal. Judgment: Judgment normal. Assessment/Plan Leg pain, anterior, left (Primary) Assessment & Plan: Due to underlying wound. Also possible neuropathy. No longer taking duloxetine which was most likely helping his pain. Prescribe short course of percocet. Orders: - lidocaine (XYLOCAINE) 5 % ointment; Apply topically 1 (one) time each day. Home (Next Day Home) Dispense: 35.44 g; Refill: 0 - oxyCODONE (ROXICODONE) 10 mg immediate release tablet; Take 1 tablet (10 mg total) by mouth 2 (two) times a day if needed for severe pain for up to 7 days. Max Daily Amount: 20 mg Dispense: 14 tablet; Refill: 0 Abnormal LFTs - US Abdomen Complete; Future Acute on chronic combined systolic and diastolic congestive heart failure (CMS/HCC V24, CMS/HCC V28) Assessment & Plan: >>ASSESSMENT AND PLAN FOR CHRONIC SYSTOLIC CONGESTIVE HEART FAILURE (CMS/HCC V24, [facility] V28) WRITTEN ON 12/13/2024 8:53 AM BY MILE TOBIAS NP Chronic condition; still has evidence of volume overload. Increase dose of spironolactone to 50 mg daily. Monitor weight. Encourage following a low sodium diet. Orders: - spironolactone (Aldactone) 50 mg tablet; Take 1 tablet (50 mg total) by mouth 1 (one) time each day. Dispense: 28 each; Refill: 11 Anxiety disorder due to general medical condition with panic attack - LORazepam (Ativan) 0.5 mg tablet; Take 1 tablet (0.5 mg total) by mouth 1 (one) time each day if needed for anxiety (panic attack) for up to 10 days. Max Daily Amount: 0.5 mg Dispense: 10 tablet; Refill: 0 Vestibular migraine Assessment & Plan: Chronic condition; labile. Continue current dose of topiamate. Conisder adjusting dose in the near future. Radiculopathy, cervical Assessment & Plan: Chronic condition; intermittent pain. Continue current medication. Parkinsonism, unspecified Parkinsonism type ([facility] V24, [facility] V28) Assessment & Plan: Improved since stopping SNRI. Continue to monitor. Meralgia paresthetica of left side Assessment & Plan: Chronic condition; stable. Controlled with gabapentin. Diabetic polyneuropathy associated with type 2 diabetes mellitus ([facility] V24, [facility] V28) Assessment & Plan: Chronic condition; labile. Continue gabapentin and use lidocaine patches. No longer on duloxetine. Monitor Hgba1c. Cataract associated with type 2 diabetes mellitus ([facility] V24, [facility] V28) Assessment & Plan: Chronic condition; surgery for cataracts no yet indicated. Encourage yearly eye exam. Arcus senilis of both eyes Assessment & Plan: Chronic condition; monitor with yearly eye exam. Shortness of breath Assessment & Plan: Chronic condition; stable. Multifactorial. Due to CHF, deconditioning, obesity leading to restrictive lung disease. Restrictive lung disease Assessment & Plan: Chronic condition; per PFT. Referred to pulmonology. [place] to be secondary to obesity, decondition and CHF. Use albuterol inhaler as needed. Monitor. Obstructive sleep apnea Assessment & Plan: Not being treated. PAR has been referred to sleep medicine, but he canceled appointment. Chronic allergic rhinitis Assessment & Plan: Chronic condition; stable. Continue current medication. Ventricular tachycardia ([facility] [facility], [facility] V28) Assessment & Plan: Chronic condition; stable. Continue amiodarone as prescribed. Follow up with cardiology as indicated. Type 2 diabetes mellitus with peripheral artery disease ([facility] V24, [facility] V28) Assessment & Plan: Chronic condition. Continue to monitor BLE skin integrity. Hypertensive heart disease with heart failure ([facility] V24, [facility] V28) Assessment & Plan: Chronic condition; blood pressure stable. Continue current medication. Still has evidence of volumeoverload. Increase dose of spironolactone to 50 mg daily. Monitor weight. Encourage following a lowsodium diet. Primary hypertension Assessment & Plan: Chronic condition; stable. BP at goal. Continue current medication. Chronic venous insufficiency Assessment & Plan: Chronic condition; labile. Continue compression wraps as tolerated. Encourage PAR to elevate BLE when in sitting position. Chronic systolic congestive heart failure ([facility] V24, [facility] V28) Cardiac defibrillator in place Assessment & Plan: Chronic condition; monitored per cardiology. No recent episodes of arrhythmias. Coronary artery disease involving [place] coronary artery of [place] heart without angina pectoris Assessment & Plan: Chronic condition; stable. Continue current medications. Follow with cardiology as indicated. Vitamin D deficiency Assessment & Plan: Chronic condition; stable. Continue Vitamin D2 as prescribed. Monitor vitamin D level yearly. Obesity, morbid ([facility] V24, [facility] V28) Assessment & Plan: Chronic condition; goal iis to avoid weight gain. Continue Ozempic. Constipation, chronic Assessment & Plan: Chronic condition; stable. Continue linzess and senna. Calculus of gallbladder without cholecystitis without obstruction Assessment & Plan: Chronic condition; has elevated LFTs. Obtain abdominal u/s. Benign prostatic hyperplasia with urinary frequency Assessment & Plan: Chronic condition; labile. Continue current medication. Consider referral to urologist. Xerosis of skin Assessment & Plan: Chronic condition; labile. Continue to encourage PAR to use moisturizer on skin. Plantar fasciitis Assessment & Plan: Chronic condition; uses lidocaine patches. Non-complaint with use of diabetic shhoes and other treatments. Other specified disorders of bone density and structure, multiple sites Assessment & Plan: Chronic condition; continue to encourage weight bearing exercises. Continue Vitamin D supplementation. Primary osteoarthritis of both knees Assessment & Plan: Chronic condition; labile. Continue to monitor and take APAP as indicated. Leg wound, left, sequela Assessment & Plan: Orginated from a blister. Continue wound care. Monitor for progression of healing. Callus Assessment & Plan: Chronic condition; continue to follow up with podiatry as indicated. Non- complaint with use of diabetic shoes. Type 2 diabetes mellitus with hyperglycemia, without long-term current use of insulin ([facility] V24,[facility] V28) Assessment & Plan: Chronic condition; need to repeat Hgba1c. Continue current medications. Erectile dysfunction associated with type 2 diabetes mellitus ([facility] V24, [facility] V28) Assessment & Plan: Chronic condition; unchanged. Referred to urologist for further disccusion of treatment options. Dyslipidemia Assessment & Plan: Chronic condition; continue daily statin therapy. Continue monitor lipids yearly. Smokes cigarettes Assessment & Plan: Chronic condition; reports no longer smoking cigarettes but is vaping. Readdress smoking cessation next visit. Sleep paralysis Assessment & Plan: Chronic condition; referred to sleep medication but PAR cancelled visit. Presbyopia Assessment & Plan: Chronic condition; stable. Recommended yearly eye exam. Polysubstance abuse ([facility] V24, [facility] V28) Assessment & Plan: Chronic condition; denies use od ilicit substance. Advised to avoid use of drugs. Other specified anxiety disorders Neurologic gait dysfunction Assessment & Plan: Chronic condition; stable. Continue to encourage use of rollator. Fall precautions. Medication management Assessment & Plan: PAR with polypharmacy. Goal to reduce pill burden. Insomnia due to medical condition Assessment & Plan: Chronic condition; PAR not following sleep hygiene recommendations. Encouraged to avoid napping during the day. Depression, major, recurrent, moderate ([facility] V24, [facility] V28) Assessment & Plan: Chronic condition; no longer on medication for depression. PAR took himself off medication. Will discuss with medical records tech best course of action when it comes to initiating treatment for depression, anxiety, and neuropathy. Alcohol abuse, episodic Assessment & Plan: Chronic condition; denies recent ETOH use. Reports not drinking in the past 2 years. Advised against ETOH. Advance Care Planning: Does the participant have an advance directive? Yes Do you have a healthcare proxy? Yes What are your emergency guidelines: Full code Notes: Do you now have a signed living will (or advance directive) giving directions for the kind of medical treatment you would want if ever you could not speak for yourself? Yes Does this organization have a copy of advance directive? Yes Would you like to compete or update one? Yes Have you discussed your living will, DNR status, and/or other health care wishes with your family? Yes Does anyone disagree with your decision? No Please explain: Do you have objections to our discussing your wishes with your family? No Notes: documented in this encounter Plan of Treatment Upcoming Encounters Date Type Department Care Team (Late st Contact Info) Description 12/16/2024 9:30 AM EDT PACE Home Care / PACE Home Visit Emilee [facility]Y [facility] [address] [place] [phone] Merlin Forbes 12/16/2024 11:00 AM EDT Office Visit Emilee MAHONEY MA PACE [address] [phone] Mile Tobias NP [address] [address] 12/16/2024 6:00 PM EDT PACE Home Care / PACE Home Visit Emilee [facility]Y [facility] [address] [place] [phone] yM Phillips 12/17/2024 7:00 AM EDT Clinical Support Emilee [facility]HONEY [facility] Clinic [address] [place] [phone] Nkechi Grajeda RN 12/17/2024 9:30 AM EDT PACE Home Care / PACE Home Visit Emilee [facility] [address] [place] [phone] Merlin Forbes 12/17/2024 11:00 AM EDT Treatment Emilee MAHONEY MA Occupational Therapy [address] [place] [phone] Tyler Ling OT 12/17/2024 6:00 PM EDT PACE Home Care / PACE Home Visit Emilee [facility] [address] [place] [phone] My Phillips 12/18/2024 10:00 AM EDT PACE Home Care / PACE Home Visit Emilee [facility]Y [facility] [address] [place] [phone] Merlin Forbes 12/18/2024 6:00 PM EDT PACE Home Care / PACE Home Visit Emilee [facility] [address] [place] [phone] My Phillips 12/19/2024 10:30 AM EDT PACE Home Care / PACE Home Visit Emilee [facility] [address] [place] [phone] Merlin Forbes 12/19/2024 6:00 PM EDT PACE Home Care / PACE Home Visit Emilee [facility] [address] [place] [phone] My Phillips 12/20/2024 9:00 AM EDT Appointment [address] [phone] 12/20/2024 9:30 AM EDT PACE Home Care / PACE Home Visit Emilee [facility]ONEY [facility] [address] [place] [phone] Merlin Forbes 12/20/2024 6:00 PM EDT PACE Home Care / PACE Home Visit Emilee [facility] [address] [place] [phone] My Phillips 12/21/2024 8:30 AM EDT PACE Home Care / PACE Home Visit Emilee [facility] [address] [place] [phone] Anabelle Valdez 12/22/2024 8:30 AM EDT PACE Home Care / PACE Home Visit Emilee [facility] [address] [place] [phone] Anabelle Valdez 12/23/2024 9:30 AM EDT PACE Home Care / PACE Home Visit Emilee [facility] [address] [place] [phone] Merlin Forbes 12/23/2024 6:00 PM EDT PACE Home Care / PACE Home Visit Emilee [facility] [address] [place] [phone] My Phillips 12/24/2024 7:00 AM EDT Clinical Support Emilee [facility]ONEY [facility] [address] [place] [phone] Nkechi Grajeda RN 12/24/2024 9:30 AM EDT PACE Home Care / PACE Home Visit Emilee MAOHNEY [facility] [address] [place] [phone] Merlin Forbes 12/24/2024 6:00 PM EDT PACE Home Care / PACE Home Visit Emilee [facility] [address] [place] [phone] My Phillips 12/25/2024 10:00 AM EDT PACE Home Care / PACE Home Visit Emilee [facility] [address] [place] [phone] Merlin Forbes 12/25/2024 6:00 PM EDT PACE Home Care / PACE Home Visit Emilee [facility] [address] [place] [phone] My Phillips 12/26/2024 10:40 AM EDT Clinical Support Emilee MAHONEY MA [address] [place] [phone] 12/26/2024 6:00 PM EDT PACE Home Care / PACE Home Visit Emilee [facility]Y [facility] [address] [place] [phone] My Phillips 12/27/2024 9:30 AM EDT PACE Home Care / PACE Home Visit Emilee [facility] [address] [place] [phone] Merlin Forbes 12/27/2024 6:00 PM EDT PACE Home Care / PACE Home Visit Emilee [facility] [address] [place] [phone] My Phillips 12/30/2024 9:30 AM EDT PACE Home Care / PACE Home Visit Emilee [facility] [address] [place] [phone] Merlin Forbes 12/30/2024 6:00 PM EDT PACE Home Care / PACE Home Visit Emilee [facility]Y [facility] [address] [place] [phone] My Phillips 12/31/2024 7:00 AM EDT Clinical Support [facility] [address] [place] [phone] Nkechi Grajeda RN 12/31/2024 9:30 AM EDT PACE Home Care / PACE Home Visit Emilee [facility] [address] [place] [phone] Merlin Forbes 12/31/2024 10:00 AM EDT Ancillary Procedure [facility] [address] [place] [address] 12/31/2024 6:00 PM EDT PACE Home Care / PACE Home Visit Emilee MAHONEY [facility] [address] [place] [phone] My Phillips 01/01/2025 10:00 AM EDT PACE Home Care / PACE Home Visit Emilee [facility]Y [facility] [address] [place] [phone] Merlin Forbes 01/01/2025 6:00 PM EDT PACE Home Care / PACE Home Visit Emilee [facility] [address] [place] [phone] My Phillips 01/02/2025 10:30 AM EDT PACE Home Care / PACE Home Visit Emilee [facility] [address] [place] [phone] Merlin Forbes 01/02/2025 3:00 PM EDT Clinical Support Emilee MAHONEY MA [address] [place] [phone] 01/02/2025 6:00 PM EDT PACE Home Care / PACE Home Visit Emilee [facility]Y [facility] [address] [place] [phone] My Phillips 01/03/2025 9:30 AM EDT PACE Home Care / PACE Home Visit Emilee [facility]ONEY [facility] [address] [place] [phone] Merlin Forbes 01/03/2025 6:00 PM EDT PACE Home Care / PACE Home Visit Emilee [facility] [address] [place] [phone] My Phillips 01/04/2025 8:30 AM EDT PACE Home Care / PACE Home Visit Emilee [facility] [address] [place] [phone] Anabelle Valdez 01/05/2025 8:30 AM EDT PACE Home Care / PACE Home Visit Emilee [facility] [address] [place] [phone] Anabelle Valdez 01/06/2025 9:30 AM EDT PACE Home Care / PACE Home Visit Emilee [facility] [address] [place] [phone] Merlin Forbes 01/06/2025 6:00 PM EDT PACE Home Care / PACE Home Visit Emilee [facility]ONEY [facility] [address] [place] [phone] My Phillips 01/07/2025 7:00 AM EDT Clinical Support [facility] [address] [place] [phone] Nkechi Grajeda, EDD 01/07/2025 8:15 AM EDT Clinical Support [facility] [address] [place] [phone] Nkechi Grajeda, EDD 01/07/2025 9:30 AM EDT PACE Home Care / PACE Home Visit Emilee [facility] [address] [place] [phone] Merlin Forbes 01/07/2025 6:00 PM EDT PACE Home Care / PACE Home Visit Emilee [facility]Y [facility] [address] [place] [phone] My Phillips 01/08/2025 10:00 AM EDT PACE Home Care / PACE Home Visit Emilee [facility] [address] [place] [phone] Merlin Forbes 01/08/2025 6:00 PM EDT PACE Home Care / PACE Home Visit Emilee [facility] [address] [place] [phone] My Phillips 01/09/2025 10:30 AM EDT PACE Home Care / PACE Home Visit Emilee MA[facility]ONEY [facility] [address] [place] [phone] Merlin Forbes 01/09/2025 6:00 PM EDT PACE Home Care / PACE Home Visit Emilee [facility]Y [facility] [address] [place] [phone] My Phillips 01/10/2025 9:30 AM EDT PACE Home Care / PACE Home Visit Emilee MA[facility]ONEY [facility] [address] [place] [phone] Merlin Forbes 01/10/2025 10:00 AM EDT Clinical Support Emilee MAHONEY MA [address] [place] [phone] 01/10/2025 6:00 PM EDT PACE Home Care / PACE Home Visit Emilee MA[facility]ONEY [facility] [address] [place] [phone] My Phillips 01/13/2025 9:30 AM EDT PACE Home Care / PACE Home Visit Emilee MAHONEY [facility] [address] [place] [phone] Merlin Forbes 01/13/2025 6:00 PM EDT PACE Home Care / PACE Home Visit Emilee MA[facility]ONEY [facility] [address] [place] [phone] My Phillips 01/14/2025 7:00 AM EDT Clinical Support [facility] [address] [place] [phone] Nkechi Grajeda RN 01/14/2025 9:30 AM EDT PACE Home Care / PACE Home Visit Emilee MA[facility]Y [facility] [address] [place] [phone] Merlin Forbes 01/14/2025 6:00 PM EDT PACE Home Care / PACE Home Visit Emilee MA[facility]Y [facility] [address] [place] [phone] My Phillips 01/15/2025 10:00 AM EDT PACE Home Care / PACE Home Visit Emilee MAHONEY [facility] [address] [place] [phone] Merlin Forbes 01/15/2025 6:00 PM EDT PACE Home Care / PACE Home Visit Emilee MAHONEY [facility] [address] [place] [phone] My Phillips 01/16/2025 10:30 AM EDT PACE Home Care / PACE Home Visit Emilee MAHONEY [facility] [address] [place] [phone] Merlin Forbes 01/16/2025 6:00 PM EDT PACE Home Care / PACE Home Visit Emilee MA[facility]Y [facility] [address] [place] [phone] My Phillips 01/17/2025 9:30 AM EDT PACE Home Care / PACE Home Visit Emilee [facility] [address] [place] [phone] Merlin Forbes 01/17/2025 6:00 PM EDT PACE Home Care / PACE Home Visit Emilee MA[facility]ONEY [facility] [address] [place] [phone] My Phillips 01/18/2025 8:30 AM EDT PACE Home Care / PACE Home Visit [facility] [address] [place] [phone] Anabelle Valdez 01/19/2025 8:30 AM EST PACE Home Care / [facility] Home Visit [facility] [address] [place] [phone] Anabelle Valdez 01/20/2025 9:30 AM EST PACE Home Care / P[facility] Home Visit [facility] [address] [place] [phone] Merlin Forbes 01/20/2025 6:00 PM EST PACE Home Care / PACE Home Visit Emilee [facility]Y [facility] [address] [place] [phone] My Phillips 01/21/2025 7:00 AM EST Clinical Support [facility] [address] [place] [phone] Nkechi Grajeda RN 01/21/2025 9:30 AM EST PACE Home Care / PACE Home Visit Em[facility] [address] [place] [phone] Merlin Forbes 01/21/2025 10:45 AM EST Clinical Support Emilee MAHONEY MA [address] [place] [phone] 01/21/2025 6:00 PM EST PACE Home Care / PACE Home Visit Em[facility]Y [facility] [address] [place] [phone] My Phillips 01/22/2025 10:00 AM EST PACE Home Care / PACE Home Visit Emilee MAH[facility]Y [facility] [address] [place] [phone] Merlin Forbes 01/22/2025 6:00 PM EST PACE Home Care / PACE Home Visit Emilee MAH[facility]Y [facility] [address] [place] [phone] My Phillips 01/23/2025 10:30 AM EST PACE Home Care / PACE Home Visit Emilee MA[facility]Y [facility] [address] [place] [phone] Merlin Forbes 01/23/2025 6:00 PM EST PACE Home Care / PACE Home Visit Emilee MA[facility]ONEY [facility] [address] [place] [phone] My Phillips 01/24/2025 9:30 AM EST PACE Home Care / PACE Home Visit Emilee MAHONEY [facility] [address] [place] [phone] Merlin Forbes 01/24/2025 6:00 PM EST PACE Home Care / PACE Home Visit Emilee MA[facility]ONEY [facility] [address] [place] [phone] My Phillips 01/27/2025 9:30 AM EST PACE Home Care / PACE Home Visit Emilee MAH[facility]Y [facility] [address] [place] [phone] Merlin Forbes 01/27/2025 6:00 PM EST PACE Home Care / PACE Home Visit Emilee MAHONEY [facility] [address] [place] [phone] My Phillips 01/28/2025 7:00 AM EST Clinical Support Em[facility] [address] [place] [phone] Nkechi Grajeda RN 01/28/2025 9:30 AM EST PACE Home Care / PACE Home Visit Em[facility] [address] [place] [phone] Merlin Forbes 01/28/2025 6:00 PM EST PACE Home Care / P[facility] Visit [facility] [address] [place] [phone] My Phillips 01/29/2025 10:00 AM EST PACE Home Care / PACE Home Visit [facility] [address] [place] [phone] Merlin Forbes 01/29/2025 6:00 PM EST PACE Home Care / PACE Home Visit [facility] [address] [place] [phone] My Phillips 01/30/2025 10:30 AM EST PACE Home Care / PACE Home Visit Emilee MA[facility]ONEY [facility] [address] [place] [phone] Merlin Forbes 01/30/2025 6:00 PM EST PACE Home Care / PACE Home Visit Emilee MA[facility]Y [facility] [address] [place] [phone] My Phillips 01/31/2025 9:30 AM EST PACE Home Care / PACE Home Visit Emilee MA[facility]Y [facility] [address] [place] [phone] Merlin Forbes 01/31/2025 11:00 AM EST PACE External Visit [facility] [address] [place] [phone] 01/31/2025 6:00 PM EST PACE Home Care / P[facility] Home Visit [facility] [address] [place] [phone] My Phillips 02/01/2025 8:30 AM EST PACE Home Care / PACE Home Visit [facility] [address] [place] [phone] Anabelle Valdez 02/02/2025 8:30 AM EST PACE Home Care / PACE Home Visit [facility] [address] [place] [phone] Anabelle Valdez 02/03/2025 9:30 AM EST PACE Home Care / P[facility] Home Visit [facility] [address] [place] [phone] Merlin Forbes 02/03/2025 6:00 PM EST PACE Home Care / P[facility] Home Visit [facility] [address] [place] [phone] My Phillips 02/04/2025 7:00 AM EST Clinical Support [facility] [address] [place] [address] Nkechi Grajeda, EDD 02/04/2025 8:15 AM EST Clinical Support [facility] [place] [facility] [address] [place] [phone] Nkechi Grajeda, EDD 02/04/2025 9:30 AM EST PACE Home Care / P[facility] Home Visit [facility] [address] [place] [phone] Merlin Forbes 02/04/2025 6:00 PM EST PACE Home Care / [facility] Home Visit [facility] [address] [place] [phone] My Phillips 02/05/2025 10:00 AM EST PACE Home Care / P[facility] Home Visit [facility] [address] [place] [phone] Merlin Forbes 02/05/2025 6:00 PM EST PACE Home Care / P[facility] Home Visit [facility] [address] [place] [phone] My Phillips 02/06/2025 10:30 AM EST PACE Home Care / P[facility] Home Visit [facility] [address] [place] [phone] Merlin Forbes 02/06/2025 6:00 PM EST PACE Home Care / [facility] Home Visit [facility] [address] [place] [phone] My Phillips 02/07/2025 9:30 AM EST PACE Home Care / P[facility] Home Visit [facility] [address] [place] [phone] Merlin Forbes 02/07/2025 6:00 PM EST PACE Home Care / PACE Home Visit [facility] [address] [place] [phone] My Phillips 02/10/2025 9:30 AM EST PACE Home Care / PACE Home Visit [facility] [address] [place] [phone] Merlin Forbes 02/10/2025 6:00 PM EST PACE Home Care / PACE Home Visit [facility] [address] [place] [phone] My Phillips 02/11/2025 7:00 AM EST Clinical Support [facility] [address] [place] [phone] Nkechi Grajeda RN 02/11/2025 9:30 AM EST PACE Home Care / PACE Home Visit Emilee MAHONEY [facility] [address] [place] [address] Merlin Forbes 02/11/2025 6:00 PM EST [facility] Home Visit Emilee MAHONEY [facility] [address] [place] [phone] My Phillips 02/12/2025 10:00 AM EST [facility] / [facility] Home Visit Emilee [facility]HONEY [facility] [address] [place] [address] Merlin Forbes 02/12/2025 6:00 PM EST [facility] / [facility] Home Visit Em[facility]Y [facility] [address] [place] [address] My Phillips 02/13/2025 10:30 AM EST [facility] / [facility] [address] [place] [phone] Merlin Forbes 02/13/2025 6:00 PM EST [facility] / [facility] Visit [facility] [address] [place] [phone] My Phillips 02/18/2025 7:00 AM EST Clinical Support [facility] [address] [place] [phone] Nkechi Grajeda, EDD 02/25/2025 7:00 AM EST [facility] [address] [place] [phone] Nkechi Grajeda, EDD 02/27/2025 10:40 AM EST Clinical Support [facility] [address] [place] [phone] 03/04/2025 7:00 AM EST [facility] [address] [place] [phone] Nkechi Grajeda, EDD 03/04/2025 8:15 AM EST [facility] [address] [place] [phone] Nkechi Grajeda, EDD 03/11/2025 7:00 AM EST [facility] [address] [place] [phone] Nkechi Grajeda, EDD 03/18/2025 7:00 AM EST [facility] [address] [place] [phone] Nkechi Grajeda, EDD 03/25/2025 7:00 AM EST [facility] [address] [place] [phone] Nkechi Grajeda, EDD 04/01/2025 7:00 AM EST [facility] [address] [place] [phone] Nkechi Grajeda, EDD 04/01/2025 8:15 AM EST [facility] [place] [facility] [place] [facility] [address] [phone] Nkechi Grajeda, EDD 04/08/2025 7:00 AM EST Clinical Support [facility] [address] [phone] Nkechi Grajeda, EDD 04/14/2025 9:25 AM EST Office Visit [facility] [address] [place] [phone] Dillon Mendosa MD [address] [place] [address] [place] [address] 04/15/2025 7:00 AM EST Clinical Support [facility] [address] [phone] Nkechi Grajeda RN 04/22/2025 7:00 AM EST Clinical Support [facility] [address] [phone] Nkechi Grajeda RN 04/29/2025 7:00 AM EST [place] [facility] [place] [facility] [address] [phone] Nkechi Grajeda, EDD 04/29/2025 8:15 AM EST [place] [facility] [place] [facility] [address] [phone] Nkechi Grajeda RN 05/06/2025 7:00 AM EST [place] [facility] [place] [facility] [address] [phone] Nkechi Grajeda, EDD 05/13/2025 7:00 AM EST Clinical Support [facility] [place] [facility] [address] [phone] Nkechi Grajeda, EDD 05/20/2025 7:00 AM EST Clinical Support [facility] [place] [facility] [address] [place] [phone] Nkechi Grajeda, EDD 05/27/2025 7:00 AM EDT Clinical [facility] [address] [place] [phone] Nkechi Grajeda, EDD 05/27/2025 8:15 AM EDT Clinical [facility] [address] [place] [phone] Nkechi Grajeda, EDD 06/03/2025 7:00 AM EDT Clinical [facility] [address] [place] [phone] Nkechi Grajeda, EDD 06/10/2025 7:00 AM EDT [facility] [place] [facility] [place] [facility] [address] [phone] Nkechi Grajeda, EDD 06/17/2025 7:00 AM EDT Clinical Support [facility] [place] [facility] [address] [phone] Nkechi Grajeda, EDD 06/24/2025 7:00 AM EDT Clinical Support [facility] [place] [facility] [address] [place] [phone] Nkechi Grajeda, EDD 06/24/2025 8:15 AM EDT Clinical Support [facility] [address] [place] [phone] Nkechi Grajeda, RN 07/01/2025 7:00 AM EDT Clinical Support [facility] [place] [facility] [address] [place] [phone] Nkechi Grajeda, EDD 07/08/2025 7:00 AM EDT Clinical Support [facility] [place] [facility] [address] [place] [phone] Nkechi Grajeda, EDD 07/15/2025 7:00 AM EDT [facility] [place] [facility] [address] [phone] Nkechi Grajeda RN 07/22/2025 8:15 AM EDT [facility] [place] [facility] [address] [phone] Nkechi Grajeda, EDD 08/19/2025 8:15 AM EDT [facility] [place] [facility] [address] [phone] Nkechi Grajeda, EDD 09/16/2025 8:15 AM EDT [facility] [place] [facility] [address] [phone] Nkechi Grajeda RN 10/14/2025 8:15 AM EDT [facility] [address] [phone] Nkehci Grajeda, EDD 11/11/2025 8:15 AM EDT [facility] [address] [phone] Nkechi Grajeda RN 12/09/2025 8:15 AM EDT [facility] [place] [facility] [address] [phone] Nkechi Grajeda, EDD Scheduled Orders Name Type Priority Associated Diagnoses Orde r Schedule US Abdomen Complete Imaging Routine Abnormal LFTs 1 Occurrences starting 12/11/2024 until 12/11/2025 documented as of this encounter Visit Diagnoses Diagnosis Leg pain, anterior, left- Primary Abnormal LFTs Acute on chronic combined systolic and diastolic congestive heart failure ([facility] V24, [facility] V28) Anxiety disorder due to general medical condition with panic attack Vestibular migraine Radiculopathy, cervical Brachial neuritis or radiculitis nos Parkinsonism, unspecified Parkinsonism type ([facility] V24, [facility] V28) Meralgia paresthetica of left side Diabetic polyneuropathy associated with type 2 diabetes mellitus ([facility] V24, [facility] V28) Cataract associated with type 2 diabetes mellitus ([facility] V24, [facility] V28) Arcus senilis of both eyes Shortness of breath Restrictive lung disease Other diseases of lung, not elsewhere classified Obstructive sleep apnea Obstructive sleep apnea (adult) (pediatric) Chronic allergic rhinitis Ventricular tachycardia ([facility] V24, [facility] V28) Paroxysmal ventricular tachycardia Type 2 diabetes mellitus with peripheral artery disease ([facility] V24, [facility] V28) Hypertensive heart disease with heart failure ([facility] V24, [facility] V28) Unspecified hypertensive heart disease with heart failure Primary hypertension Unspecified essential hypertension Chronic venous insufficiency Unspecified venous (peripheral) insufficiency Chronic systolic congestive heart failure ([facility] V24, [facility] V28) Cardiac defibrillator in place Automatic implantable cardiac defibrillator in situ Coronary artery disease involving [place] coronary artery of [place] heart without angina pectoris Vitamin D deficiency Obesity, morbid ([facility] V24, [facility] V28) Morbid obesity Constipation, chronic Unspecified constipation Calculus of gallbladder without cholecystitis without obstruction Benign prostatic hyperplasia with urinary frequency Xerosis of skin Plantar fasciitis Plantar fascial fibromatosis Other specified disorders of bone density and structure, multiple sites Primary osteoarthritis of both knees Leg wound, left, sequela Callus Corns and callosities Type 2 diabetes mellitus with hyperglycemia, without long-term current use of insulin ([facility] V24, [facility] V28) Erectile dysfunction associated with type 2 diabetes mellitus ([facility] V24, [facility] V28) Type II or unspecified type diabetes mellitus without mention of complication, not stated as uncontrolled Dyslipidemia Other and unspecified hyperlipidemia Smokes cigarettes Sleep paralysis Sleep related movement disorder, unspecified Presbyopia Polysubstance abuse ([facility] V24, [facility] V28) Other, mixed, or unspecified nondependent drug abuse, unspecified Other specified anxiety disorders Neurologic gait dysfunction Abnormality of gait Medication management Insomnia due to medical condition Organic insomnia, unspecified Depression, major, recurrent, moderate ([facility] V24, [facility] V28) Alcohol abuse, episodic Nondependent alcohol abuse, episodic drinking behavior Encounter for adjustment or management of cardiac device documented in this encounter Discontinued Medications Medication Sig Discontinue Reason Start Date End Da te DULoxetine (CYMBALTA) [address] capsuleIndications:Diabe tic polyneuropathy associated with type 2 diabetes mellitus ([facility] V24, [facility] V28) Take 1 capsule (60 mg total) by mouth 1 (one) time each day. Do not crush or chew. Prescriber Discontinued 08/06/2024 12/11/2024 metOLazone (ZAROXOLYN) 5 mg tabletIndications:Chroni c systolic congestive heart failure ([facility] V24, [facility] V28) Take 1 tablet (5 mg total) by mouth 1 (one) time each day in the morning. Therapy completed 12/03/2024 12/11/2024 spironolactone (Aldactone) 25 mg tabletIndications:Acute on chronic combined systolic and diastolic congestive heart failure ([facility] V24, [facility] V28) Take 1 tablet (25 mg total) by mouth 1 (one) time each day. Reorder 10/18/2024 12/11/2024 documented as of this encounter Additional Health Concerns Assessment Noted Time PHQ-9 Depression Total Score: 025 12:16 PM EDT documented as of this encounter Care Teams Step Down Nurse Relationship Specialty Start Date End Date Mile Tobias NP [address] [address] PCP - General Family Medicine 12/01/24 documented as of this encounter
--- OUTSIDE RECORDS SUMMARY | 2024-12-11 18:00 | XMS_ITS | Encounter Summary ---
Author Organization [facility] Address [address] [place] [address] Care Team Providers Care Assistant Women'S Rowing Coach Name Role Phone Deloris Tobias MANUFACTURING MANAGEMENT ASSOCIATE Primary Care Provider [phone] Encounter Details Date Type Department Care Team (Late st Contact Info) Description 12/11/2024 6:00 PM EDT PACE Home Care / PACE Home Visit Emilee MAHONEY [facility] [address] [place] [phone] My [facility] Social History Tobacco Use Types Packs/Day Years [...] 9:44 PM EDT Geronimo Mane RN * [place] Suicide Severity Rating Scale (Screener/Recent Self-Report) Question [...] [facility] [address] [place] [phone] Merlin Forbes 12/16/2024 11:00 AM EDT Office Visit [facility] [address] [place] [phone] Deloris Tobias NP [address] [place] [address] 12/16/2024 6:00 PM EDT PACE Home Care / PACE Home Visit Emilee MAHONEY [facility] [address] [place] [phone] My [facility] 12/17/2024 7:00 AM EDT Clinical Support [facility] [address] [place] [phone] Nkechi Grajeda, EDD 12/17/2024 9:30 AM EDT PACE Home Care / PACE Home Visit Emilee MAHONEY [facility] [address] [place] [phone] Merlin Forbes 12/17/2024 11:00 AM EDT Treatment Emilee MAHONEY MA Occupational Therapy [address] [place] [phone] Tyler Ling OT 12/17/2024 6:00 PM EDT PACE Home Care / PACE Home Visit Emilee MAHONEY [facility] [address] [place] [phone] My [facility] 12/18/2024 10:00 AM EDT PACE Home Care / PACE Home Visit Emilee MAHONEY [facility] [address] [place] [phone] Merlin Forbes 12/18/2024 6:00 PM EDT PACE Home Care / PACE Home Visit Emilee MAHONEY [facility] [address] [place] [phone] My Phillips 12/19/2024 10:30 AM EDT PACE Home Care / PACE Home Visit Emilee MAHONEY [facility] [address] [place] [phone] Merlin Forbes 12/19/2024 6:00 PM EDT PACE Home Care / PACE Home Visit Emilee MAHONEY [facility] [address] [place] [phone] My Phillips 12/20/2024 9:00 AM EDT Appointment [address] [phone] 12/20/2024 9:30 AM EDT PACE Home Care / PACE Home Visit Emilee MAHONEY [facility] [address] [place] [phone] Merlin Forbes 12/20/2024 6:00 PM EDT PACE Home Care / PACE Home Visit Emilee MAHONEY [facility] [address] [place] [phone] My Phillips 12/21/2024 8:30 AM EDT PACE Home Care / PACE Home Visit Emilee MAHONEY [facility] [address] [place] [address] Anabelle Valdez 12/22/2024 8:30 AM EDT PACE Home Care / PACE Home Visit Emilee MAHONEY [facility] [address] [place] [address] Anabelle Valdez 12/23/2024 9:30 AM EDT PACE Home Care / PACE Home Visit Emilee MAHONEY [facility] [address] [place] [address] Merlin Forbes 12/23/2024 6:00 PM EDT PACE Home Care / PACE Home Visit Emilee MAHONEY [facility] [address] [place] [phone] My [facility] 12/24/2024 7:00 AM EDT Clinical Support Emilee [facility] [address] [place] [phone] Nkechi Grajeda RN 12/24/2024 9:30 AM EDT PACE Home Care / PACE Home Visit Emilee MAHONEY [facility] [address] [place] [phone] Merlin Forbes 12/24/2024 6:00 PM EDT PACE Home Care / PACE Home Visit Emilee MAHONEY [facility] [address] [place] [phone] My Phillips 12/25/2024 10:00 AM EDT PACE Home Care / PACE Home Visit Emilee MAHONEY [facility] [address] [place] [phone] Merlin Forbes 12/25/2024 6:00 PM EDT PACE Home Care / PACE Home Visit Emilee MAHONEY [facility] [address] [place] [phone] My Phillips 12/26/2024 10:40 AM EDT Clinical Support Emilee MAHONEY MA [address] [place] [phone] 12/26/2024 6:00 PM EDT PACE Home Care / PACE Home Visit Emilee MAHONEY [place] [facility] [address] [place] [address] My Phillips 12/27/2024 9:30 AM EDT PACE Home Care / PACE Home Visit Emilee MAHONEY [place] [facility] [address] [place] [address] Merlin Forbes 12/27/2024 6:00 PM EDT PACE Home Care / PACE Home Visit Emilee MAHONEY [facility] [address] [place] [phone] My Phillips 12/30/2024 9:30 AM EDT PACE Home Care / PACE Home Visit Emilee MAHONEY [facility] [address] [place] [phone] Merlin Forbes 12/30/2024 6:00 PM EDT PACE Home Care / PACE Home Visit Emilee MAHONEY [facility] [address] [place] [phone] My [facility] 12/31/2024 7:00 AM EDT Clinical Support [facility] [place] [facility] [address] [place] [phone] Nkechi Grajeda, EDD 12/31/2024 9:30 AM EDT PACE Home Care / PACE Home Visit Emilee MAHONEY [facility] [address] [place] [phone] Merlin Forbes 12/31/2024 10:00 AM EDT Ancillary Procedure [facility] [address] [facility] [address] [place] [address] 12/31/2024 6:00 PM EDT PACE Home Care / PACE Home Visit Emilee MAHONEY [place] [facility] [address] [place] [address] My Phillips 01/01/2025 10:00 AM EDT PACE Home Care / PACE Home Visit Emilee MAHONEY [place] [facility] [address] [place] [phone] Merlin Forbes 01/01/2025 6:00 PM EDT PACE Home Care / PACE Home Visit Emilee MAHONEY [place] [facility] [address] [place] [address] My Phillips 01/02/2025 10:30 AM EDT PACE Home Care / PACE Home Visit Emilee MAHONEY [facility] [address] [place] [address] Merlin Forbes 01/02/2025 3:00 PM EDT Clinical Support Emilee MAHONEY MA [address] [place] [phone] 01/02/2025 6:00 PM EDT PACE Home Care / PACE Home Visit Emilee MAHONEY [facility] [address] [place] [phone] My Phillips 01/03/2025 9:30 AM EDT PACE Home Care / PACE Home Visit Emilee MAHONEY [facility] [address] [place] [phone] Merlin Forbes 01/03/2025 6:00 PM EDT PACE Home Care / PACE Home Visit Emilee MAHONEY [facility] [address] [place] [address] My Phillips 01/04/2025 8:30 AM EDT PACE Home Care / PACE Home Visit Emilee MAHONEY [facility] [address] [place] [address] Anabelle Valdez 01/05/2025 8:30 AM EDT PACE Home Care / PACE Home Visit Emilee MAHONEY [facility] [address] [place] [address] Anabelle Valdez 01/06/2025 9:30 AM EDT PACE Home Care / PACE Home Visit Emilee MAHONEY [facility] [address] [place] [address] Merlin Forbes 01/06/2025 6:00 PM EDT PACE Home Care / PACE Home Visit Emilee MAHONEY [facility] [address] [place] [phone] My [facility] 01/07/2025 7:00 AM EDT Clinical Support [facility] [place] [facility] [address] [place] [phone] Nkechi Grajeda, EDD 01/07/2025 8:15 AM EDT Clinical Support [facility] [place] [facility] [address] [place] [phone] Nkechi Grajeda, EDD 01/07/2025 9:30 AM EDT PACE Home Care / PACE Home Visit Emilee MAHONEY [facility] [address] [place] [phone] Merlin Forbes 01/07/2025 6:00 PM EDT PACE Home Care / PACE Home Visit Emilee MAHONEY [facility] [address] [place] [phone] My Phillips 01/08/2025 10:00 AM EDT PACE Home Care / PACE Home Visit Emilee MAHONEY [facility] [address] [place] [phone] Merlin Forbes 01/08/2025 6:00 PM EDT PACE Home Care / PACE Home Visit Emilee MAHONEY [facility] [address] [place] [phone] My Phillips 01/09/2025 10:30 AM EDT PACE Home Care / PACE Home Visit Emilee MAHONEY [facility] [address] [place] [address] Merlin Forbes 01/09/2025 6:00 PM EDT PACE Home Care / PACE Home Visit Emilee MAHONEY [facility] [address] [place] [address] My Phillips 01/10/2025 9:30 AM EDT PACE Home Care / PACE Home Visit Emilee MAHONEY [facility] [address] [place] [address] Merlin Forbes 01/10/2025 10:00 AM EDT Clinical Support Emilee MAHONEY MA [address] [place] [address] 01/10/2025 6:00 PM EDT PACE Home Care / PACE Home Visit Emilee MAHONEY [facility] [address] [place] [phone] My Phillips 01/13/2025 9:30 AM EDT PACE Home Care / PACE Home Visit Emilee MAHONEY [facility] [address] [place] [phone] Merlin Forbes 01/13/2025 6:00 PM EDT PACE Home Care / PACE Home Visit Emilee MAHONEY [facility] [address] [place] [phone] My Phillips 01/14/2025 7:00 AM EDT Clinical Support [facility] [place] [facility] [address] [place] [address] Nkechi Grajeda RN 01/14/2025 9:30 AM EDT PACE Home Care / PACE Home Visit Emilee MAHONEY [facility] [address] [place] [address] Merlin Forbes 01/14/2025 6:00 PM EDT PACE Home Care / PACE Home Visit Emilee MAHONEY [facility] [address] [place] [phone] My Phillips 01/15/2025 10:00 AM EDT PACE Home Care / PACE Home Visit Emilee MAHONEY [facility] [address] [place] [phone] Merlin Forbes 01/15/2025 6:00 PM EDT PACE Home Care / PACE Home Visit Emilee MAHONEY [facility] [address] [place] [phone] My Phillips 01/16/2025 10:30 AM EDT PACE Home Care / PACE Home Visit Emilee MAHONEY [facility] [address] [place] [phone] Merlin Forbes 01/16/2025 6:00 PM EDT PACE Home Care / PACE Home Visit Emilee MAHONEY [facility] [address] [place] [phone] My Phillips 01/17/2025 9:30 AM EDT PACE Home Care / PACE Home Visit Emilee MAHONEY [facility] [address] [place] [phone] Merlin Forbes 01/17/2025 6:00 PM EDT PACE Home Care / PACE Home Visit Emilee MAHONEY [facility] [address] [place] [phone] My Phillips 01/18/2025 8:30 AM EDT PACE Home Care / PACE Home Visit Emilee MAHONEY [facility] [address] [place] [phone] Anabelle Valdez 01/19/2025 8:30 AM EST PACE Home Care / PACE Home Visit Emilee MAHONEY [facility] [address] [place] [phone] Anabelle Valdez 01/20/2025 9:30 AM EST PACE Home Care / PACE Home Visit Emilee MAHONEY [facility] [address] [place] [address] Merlin Forbes 01/20/2025 6:00 PM EST PACE Home Care / PACE Home Visit Emilee MAHONEY [facility] [address] [place] [address] My Phillips 01/21/2025 7:00 AM EST Clinical Support [facility] [place] [facility] [address] [place] [address] Nkechi Grajeda RN 01/21/2025 9:30 AM EST PACE Home Care / PACE Home Visit Emilee MAHONEY [facility] [address] [place] [address] Merlin Forbes 01/21/2025 10:45 AM EST Clinical Support Emilee MAHONEY MA [address] [place] [address] 01/21/2025 6:00 PM EST PACE Home Care / PACE Home Visit Emilee MAHONEY [facility] [address] [place] [address] My Phillips 01/22/2025 10:00 AM EST PACE Home Care / PACE Home Visit Emilee MAHONEY [facility] [address] [place] [address] Merlin Forbes 01/22/2025 6:00 PM EST PACE Home Care / PACE Home Visit Emilee MAHONEY [facility] [address] [place] [address] My Phillips 01/23/2025 10:30 AM EST PACE Home Care / PACE Home Visit Emilee MAHONEY [facility] [address] [place] [address] Merlin Forbes 01/23/2025 6:00 PM EST PACE Home Care / PACE Home Visit Emilee MAHONEY [facility] [address] [place] [address] My Phillips 01/24/2025 9:30 AM EST PACE Home Care / PACE Home Visit Emilee MAHONEY [facility] [address] [place] [address] Merlin Forbes 01/24/2025 6:00 PM EST PACE Home Care / PACE Home Visit Emilee MAHONEY [facility] [address] [place] [address] My Phillips 01/27/2025 9:30 AM EST PACE Home Care / PACE Home Visit Emilee MAHONEY [facility] [address] [place] [address] Merlin Forbes 01/27/2025 6:00 PM EST PACE Home Care / PACE Home Visit Emilee MAHONEY [facility] [address] [place] [address] My Phillips 01/28/2025 7:00 AM EST Clinical Support [facility] [place] [facility] [address] [place] [address] Nkechi Grajeda RN 01/28/2025 9:30 AM EST PACE Home Care / PACE Home Visit Emilee MAHONEY [facility] [address] [place] [address] Merlin Forbes 01/28/2025 6:00 PM EST PACE Home Care / PACE Home Visit Emilee MAHONEY [facility] [address] [place] [address] My Phillips 01/29/2025 10:00 AM EST PACE Home Care / PACE Home Visit Emilee MAHONEY [facility] [address] [place] [address] Merlin Forbes 01/29/2025 6:00 PM EST PACE Home Care / PACE [facility] Visit [facility] [address] [place] [address] My Phillips 01/30/2025 10:30 AM EST PACE Home Care / PACE Home Visit Emilee MAHONEY [facility] [address] [place] [address] Merlin Forbes 01/30/2025 6:00 PM EST PACE Home Care / P[facility] Home Visit [facility] [address] [place] [address] My Phillips 01/31/2025 9:30 AM EST PACE Home Care / PACE Home Visit Emilee MAHONEY [facility] [address] [place] [phone] Merlin Forbes 01/31/2025 11:00 AM EST PACE External Visit Emilee MAHONEY MA [address] [place] [address] 01/31/2025 6:00 PM EST PACE Home Care / PACE Home Visit Emilee MAHONEY [facility] [address] [place] [phone] My Phillips 02/01/2025 8:30 AM EST PACE Home Care / PACE Home Visit [facility] [address] [place] [phone] Anabelle Valdez 02/02/2025 8:30 AM EST PACE Home Care / PACE Home Visit [facility] [place] [facility] [address] [place] [phone] Anabelle Valdez 02/03/2025 9:30 AM EST PACE Home Care / [facility] Visit [facility] [address] [place] [phone] Merlin Forbes 02/03/2025 6:00 PM EST PACE Home Care / PACE Home Visit Emilee MAHONEY [facility] [address] [place] [address] My Phillips 02/04/2025 7:00 AM EST Clinical Support [facility] [address] [place] [address] Nkechi Grajeda, EDD 02/04/2025 8:15 AM EST Clinical Support [facility] [place] [facility] [address] [place] [address] Nkechi Grajeda, EDD 02/04/2025 9:30 AM EST PACE Home Care / PACE Home Visit Emilee [facility]Y [facility] [address] [place] [phone] Merlin Forbes 02/04/2025 6:00 PM EST PACE Home Care / PACE Home Visit Emilee MA[facility]Y [facility] [address] [place] [phone] My Phillips 02/05/2025 10:00 AM EST PACE Home Care / PACE Home Visit Emilee MAH[facility]Y [facility] [address] [place] [phone] Merlin Forbes 02/05/2025 6:00 PM EST PACE Home Care / PACE Home Visit Emilee [facility] [address] [place] [phone] My Phillips 02/06/2025 10:30 AM EST PACE Home Care / PACE Home Visit Emilee [facility] [address] [place] [phone] Merlin Forbes 02/06/2025 6:00 PM EST PACE Home Care / PACE Home Visit Emilee [facility] [address] [place] [phone] My Phillips 02/07/2025 9:30 AM EST PACE Home Care / PACE Home Visit Emilee [facility] [address] [place] [address] Merlin Forbes 02/07/2025 6:00 PM EST PACE Home Care / PACE Home Visit Emilee [facility]Y [facility] [address] [place] [address] My Phillips 02/10/2025 9:30 AM EST PACE Home Care / PACE Home Visit Emilee [facility] [address] [place] [address] Merlin Forbes 02/10/2025 6:00 PM EST PACE Home Care / PACE Home Visit Emilee [facility] [address] [place] [address] My [facility] 02/11/2025 7:00 AM EST Clinical Support [facility] [place] [facility] [address] [place] [address] Nkechi Grajeda RN 02/11/2025 9:30 AM EST PACE Home Care / PACE Home Visit [facility] [address] [place] [address] Merlin Forbes 02/11/2025 6:00 PM EST PACE Home Care / PACE Home Visit Emilee [facility] [address] [place] [address] My Phillips 02/12/2025 10:00 AM EST PACE Home Care / PACE Home Visit Emilee [facility] [address] [place] [address] Merlin Forbes 02/12/2025 6:00 PM EST PACE Home Care / PACE Home Visit Em[facility] [address] [place] [address] My Phillips 02/13/2025 10:30 AM EST PACE Home Care / [facility] Visit [facility] [place] [facility] [address] [place] [phone] Merlin Forbes 02/13/2025 6:00 PM EST PACE Home Care / P[facility] Home Visit [facility] [place] [facility] [address] [place] [phone] My Phillips 02/18/2025 7:00 AM EST Clinical Support [facility] [place] [facility] [address] [place] [phone] Nkechi Grajeda, EDD 02/25/2025 7:00 AM EST Clinical Support [facility] [place] [facility] [address] [place] [phone] Nkechi Grajeda, EDD 02/27/2025 10:40 AM EST Clinical Support [facility] [place] [address] [place] [phone] 03/04/2025 7:00 AM EST Clinical Support [facility] [place] [facility] [address] [place] [phone] Nkechi Grajeda, EDD 03/04/2025 8:15 AM EST Clinical Support [facility] [place] [facility] [address] [place] [phone] Nkechi Grajeda, EDD 03/11/2025 7:00 AM EST Clinical Support [facility] [place] [facility] [address] [place] [phone] Nkechi Grajeda, EDD 03/18/2025 7:00 AM EST Clinical Support [facility] [place] [facility] [address] [place] [phone] Nkechi Grajeda, RN 03/25/2025 7:00 AM EST Clinical Support [facility] [place] [facility] [address] [place] [phone] Nkechi Grajeda, RN 04/01/2025 7:00 AM EST Clinical Support [facility] [place] [address] [address] Nkechi Grajeda, EDD 04/01/2025 8:15 AM EST Clinical Support [facility] [place] [facility] [address] [address] Nkechi Grajeda, EDD 04/08/2025 7:00 AM EST Clinical Support [facility] [place] [facility] [address] [phone] Nkechi Grajeda, EDD 04/14/2025 9:25 AM EST Office Visit [facility] [address] [place] [address] Dillon Mendosa MD [address] [place] [address] [place] [address] 04/15/2025 7:00 AM EST Clinical Support [facility] [place] [facility] [address] [phone] Nkechi Grajeda, EDD 04/22/2025 7:00 AM EST Clinical Support [facility] [place] [facility] [address] [phone] Nkechi Grajeda, EDD 04/29/2025 7:00 AM EST Clinical Support [facility] [place] [facility] [address] [address] Nkechi Grajeda, EDD 04/29/2025 8:15 AM EST Clinical Support [facility] [place] [address] [phone] Nkechi Grajeda, EDD 05/06/2025 7:00 AM EST Clinical Support [facility] [place] [facility] [address] [phone] Nkechi Grajeda, EDD 05/13/2025 7:00 AM EST Clinical Support [facility] [place] [address] [phone] Nkechi Grajeda, EDD 05/20/2025 7:00 AM EST Clinical Support [facility] [place] [facility] [address] [place] [phone] Nkechi Grajeda, EDD 05/27/2025 7:00 AM EDT Clinical Support [facility] [place] [facility] [address] [place] [phone] Nkechi Grajeda, EDD 05/27/2025 8:15 AM EDT Clinical Support [facility] [place] [facility] [address] [place] [phone] Nkechi Grajeda, EDD 06/03/2025 7:00 AM EDT Clinical Support [facility] [address] [place] [phone] Nkechi Grajeda, EDD 06/10/2025 7:00 AM EDT Clinical Support [facility] [place] [facility] [address] [place] [phone] Nkechi Grajeda, EDD 06/17/2025 7:00 AM EDT Clinical Support [facility] [place] [facility] [address] [place] [phone] Nkechi Grajeda, EDD 06/24/2025 7:00 AM EDT Clinical Support [facility] [address] [place] [phone] Nkechi Grajeda, RN 06/24/2025 8:15 AM EDT Clinical Support [facility] [place] [facility] [address] [place] [phone] Nkechi Grajeda, RN 07/01/2025 7:00 AM EDT Clinical Support [facility] [place] [facility] [address] [place] [phone] Nkechi Grajeda, RN 07/08/2025 7:00 AM EDT Clinical Support [facility] [place] [facility] [address] [place] [phone] Nkechi Grajeda, EDD 07/15/2025 7:00 AM EDT Clinical Support [facility] [address] [phone] Nkechi Grajeda, EDD 07/22/2025 8:15 AM EDT Clinical Support [facility] [address] [address] Nkechi Grajeda, EDD 08/19/2025 8:15 AM EDT Clinical Support [address] [address] Nkechi Grajeda, EDD 09/16/2025 8:15 AM EDT Clinical Support [address] [address] Nkechi Grajeda, EDD 10/14/2025 8:15 AM EDT Clinical Support [address] [address] Nkechi Grajeda, EDD 11/11/2025 8:15 AM EDT Clinical Support [address] [phone] Nkechi Grajeda, EDD 12/09/2025 8:15 AM EDT Clinical Support [address] [phone] Nkechi Grajeda, RN documented as of this encounter Visit Diagnoses Not on filedocumented in this encounter Additional Health Concerns Assessment Noted Time PHQ-9 Depression Total Score: 20 025 12:16 PM EDT documented as of this encounter Care Teams Assistant Women'S Rowing Coach Relationship Specialty Start Date End Date Deloris Tobias NP [address] [place] [phone] PCP - General Family Medicine 12/01/24 documented as of this encounter
--- OUTSIDE RECORDS SUMMARY | 2024-12-12 01:24 | XMS_ITS | Encounter Summary ---
Author Organization [facility] Address [address] [place] [address] Care Team Providers Care Adjunct Physical Education Instructor Name Role Phone Deloris Tobias MEDICAL INSURANCE COLLECTOR Primary Care Provider [phone] Reason for Referral * Home Health (Routine) - Pending Review Specialty Diagnoses / Procedures Referred By Tonja short Referred To Contact Home Health Services Diagnoses Hypokalemia Anxiety Acute on chronic combined systolic and diastolic congestive heart failure (CMS/HCC V24, CMS/HCC V28) Radu Blum PA [address] [place] [id number] Phone: tel: fax: Referral ID Status Reason Start Date Expiration Date Visits Requested Visits Authorized [id number] Pending Review Consult and Treat 12/13/2024 12/13/2025 1 1 Reason for Visit * Reason Comments Anxiety * Auth/Cert (Routine) Specialty Diagnoses / Procedures Referred By Tonja short Referred To Contact Diagnoses Hypokalemia Anxiety CKD stage 3a, GFR 45-59 ml/min (CMS/HCC V24, CMS/HCC V28) Procedures . Janine Ortiz MD [address] [place] [address] Phone: tel: fax: [facility] [address] [place] [phone] Phone: tel: Referral ID Status Reason Start Date Expiration Date Visits Re quested Visits Authorized [id number] 1 1 Encounter Details Date Type Department Care Team (Latest Contact Info) Description 12/12/2024 1:24 AM EDT - 12/13/2024 3:30 PM EDT Hospital Encounter [facility] [address] [place] [phone] Janine Ortiz MD [address] [place] [address] [phone] Jaren Bentley MD [address] [place] [phone] Hypokalemia (Primary Dx); CKD stage 3a, GFR 45-59 ml/min ([facility] V24, [facility] V28); Anxiety; Acute on chronic combined systolic and diastolic congestive heart failure ([facility] V24, [facility] V28) Discharge Disposition: Home-Health Care Svc Social History Tobacco Use Types Packs/Day Years [...] Sign Reading Time Taken Comments Blood Pressure 131/64 12/13/2024 11:28 AM EDT Pulse 60 12/13/2024 11:28 AM EDT Temperature 35.7 C (96.3 F) 12/13/2024 11:28 AM EDT Respiratory Rate 16 12/13/2024 11:28 AM EDT Oxygen Saturation 93% 12/13/2024 11:28 AM EDT Inhaled Oxygen Concentration - - Weight 142 kg (312 lb 6.4 oz) 12/13/2024 6:00 AM EDT Height 182.9 cm (6') 12/11/2024 9:57 PM EDT Body Mass Index 42.37 12/11/2024 9:57 PM EDT documented in this encounter Functional Status * Calculated C-SSRS Risk Score (Lifetime/Recent) Answer Date of Assessment Author No Risk Indicated 12/11/2024 9:44 PM EDT Geronimo Mane RN * Pearson Suicide Severity Rating Scale (Screener/Recent Self-Report) Question Answer Date of Assessment Author 1. Wish to be (Past 1 Month) No 12/11/2024 9:44 PM EDT Bernardino Rodriguez RN 2. Non-Specific Active Suici pari Thoughts (Past 1 Month) No 12/11/2024 9:44 PM EDT Jerel Rodriguez RN 6. Suicidal Behavior (Lifetime) No 9:44 PM EDT Geronimo Rodriguez RN documented as of this encounter Discharge Summaries * PRATIMA Fischer - 12/13/2024 2:38 PM EDT Images from the original note were not included. [facility] DISCHARGE SUMMARY Patient Information Jay Mejia : 1960 [64 y.o.] Admitting Provider Janine Ortiz MD Discharge Provider PRATIMA Fischer, Jaren Galaeno* Primary Care Physician Deloris Tobias NP Admission Date 12/12/2024 Discharge Date 12/13/2024 Discharge Destination: Home. Code Status at Discharge: Full Code - Default Hospital Course Summary Anxiety 64-year-old male with PMH HFrEF 25-30%, cardiomyopathy, ICD, cocaine use, HTN, HLD,CAD-CABG who presented to ED for anxiety secondary to many health issues. He denied any SI, HI. On presentation, vital signs stable. Patient was irritable while in hospital. Drug screen was positive for cocaine, cannabis. Overall, he reported feeling better regarding his anxiety. Patient was recommended to follow-up with PCP. Altered mental status/acute toxic encephalopathy. On admission, patient was reported to have AMS. CT brain without contrast negative for acute finding. Tox screen was positive for cocaine, cannabis. While in hospital, patient was alert and oriented. Chronic systolic CHF Secondary to ischemic cardiomyopathy? EF 30 to 35% Status post ICD Chest x-ray seemed to show left pleural effusion? (discussed with radiologist: Recommended 2 views chest x-ray). Repeat chest x-ray done after diuresis showed left lower base opacity improvement. He was managed with low-salt diet, fluid restriction. His p.o. Bumex was temporarily switched to IVfurosemide. He was also on carvedilol, Entresto, spironolactone, Farxiga. Patient to follow-up with PCP and collection analyst. Electrolyte abnormality Hypokalemia: He was noted to have low potassium which was replaced. Follow-up with PCP. Hyponatremia: Reported low sodium 128 on admission, believed to be secondary to volume overload. Patient was diuresed. His sodium improved and was 133 at discharge. Follow-up with PCP. CAD Patient continues to smoke. He has diabetes. Uses cocaine. Low-dose aspirin, carvedilol, statin. Smoking and cocaine cessation strongly advised. Left lower extremity wound Left lower extremity with bandage. See picture in HPI Patient to follow-up with wound clinic. Type 2 diabetes A1c 8.5. On low-carb diet, SSI Tobacco abuse On nicotine patch. Cocaine use As above, cocaine cessation was strongly advised. Patient was made aware of health consequences with cocaine use. BMI 42.86 Follow-up with PCP for weight management Procedures done: XR Chest 2 Views Final Result No acute pulmonary disease. The area of atelectasis and/or infiltrate in the left lower lobe suspected on the prior study 9 hours 29 minutes earlier has resolved. Code 37026 -------- FINAL REPORT -------- Dictated By: Donavon Davis Dictated Date: 12/13/2024 11:39 ET Assigned Physician: Donavon Davis Reviewed and Electronically Signed By: Donavon Davis Signed Date: 12/13/2024 11:42 ET Workstation ID: [id number] Transcribed By: Self Edit Transcribed Date: 12/13/2024 11:39 ET XR Chest 1 View Final Result Hypoinflated lung gomez without definite infiltrates or effusions. -------- FINAL REPORT -------- Dictated By: Marie Ring Dictated Date: 12/12/2024 09:06 ET Assigned Physician: Marie Ring Reviewed and Electronically Signed By: Marie Ring Signed Date: 12/12/2024 09:08 ET Workstation ID: [id number] Transcribed By: Self Edit Transcribed Date: 12/12/2024 09:[address] Head wo Contrast Final Result 1. No acute intracranial process. 2. Moderate/advanced changes of chronic microvascular ischemic disease with age related global parenchymal volume loss. 3. Mucosal thickening of the ethmoid sinuses. This document has been electronically signed by: Geoff Belcher DO on 12/12/2024 03:32:31 Condition upon discharge Visit Vitals BP 131/64 (BP Location: Left arm, Patient Position: Lying) Pulse 60 Temp 35.7 ??C (96.3 ??F) (Temporal) Resp 16 Temp (24hrs), Av.1 ??C (97 ??F), Min:35.7 ??C (96.3 ??F), Max:36.5 ??C (97.7 ??F) Body mass index is 42.37 kg/m??. No results found for: PTWT , PTHT GEN: Alert, oriented. No distress. Obese, irritable. HEENT: Atraumatic, symmetric, PERRLA. Neck: Supple, nontender, no range of motion limitation. Lungs: Clear, no accessory muscle use. Heart: Regular, no murmur. Lower extremities with chronic skin lesions, swelling. Abdomen: Not distended, soft, nontender. Bowel sounds present. MSK: Left lower extremity with wound bandage. Neuro: Alert, oriented. Cranial nerves II to XII grossly intact. No facial droop. No motor deficit. Psych: Cooperative, calm. This note was written using [employer] speech recognition software which is prone to typographical errors. If questions occur please do not hesitate to call this provider. Follow-Up Instructions and Recommendations No follow-up provider specified. Discharge Procedure Orders Ambulatory referral to Home Health Standing Status: Future Referral Priority: Routine Referral Type: Home Health Referral Reason: Consult and Treat Requested Specialty: Home Health Services Number of Visits Requested: 1 There are no outpatient Patient Instructions on file for this admission. Discharge Medications Your medication list START taking these medications Instructions Last Dose Given Next Dose Due nicotine 7 mg/24 hr Commonly known as: NICODERM CQ Start taking on: December 14, 2024 Place 1 patch on the skin 1 (one) time each day for 14 days. CHANGE how you take these medications Instructions Last Dose Given Next Dose Due urea 20 % cream Commonly known as: CARMOL What changed: how to take this reasons to take this Apply topically if needed for dry skin. 1 application to (affected) skin 2 times per day CONTINUE taking these medications Instructions Last Dose Given Next Dose Due acetaminophen 500 mg tablet Commonly known as: TYLENOL Take 2 tablets (1,000 mg total) by mouth every 8 (eight) hours if needed for mild pain or moderate pain. albuterol HFA 90 mcg/actuation inhaler Commonly known as: Ventolin HFA Inhale 2 puffs by mouth every 4 (four) hours if needed for wheezing or shortness of breath. amiodarone 400 mg tablet Commonly known as: PACERONE 1 tab by mouth daily aspirin 81 mg EC tablet Take 1 tablet (81 mg total) by mouth 1 (one) time each day. bumetanide 2 mg tablet Commonly known as: BUMEX Take 1 tablet (2 mg total) by mouth 2 (two) times a day. carvediloL 3.125 mg tablet Commonly known as: Coreg Take 1 tablet (3.125 mg total) by mouth 2 (two) times a day with meals. dapagliflozin propanediol 10 mg tablet Commonly known as: FARXIGA Take 1 tablet (10 mg total) by mouth 1 (one) time each day. docusate sodium 100 mg capsule Commonly known as: COLACE Take 1 capsule (100 mg total) by mouth 2 (two) times a day. ergocalciferol 1,250 mcg (50,000 unit) capsule Commonly known as: VITAMIN D-2 Take 1 capsule (50,000 Units total) by mouth 1 (one) time per week. gabapentin 800 mg tablet Commonly known as: NEURONTIN Take 1 tablet (800 mg total) by mouth 3 (three) times a day. 1 tab by mouth 3 times per day lidocaine 5 % patch Commonly known as: LIDODERM Apply 2 patches topically 1 (one) time each day. Apply to painful area 12 hours per day, remove for12 hours. lidocaine 5 % ointment Commonly known as: XYLOCAINE Apply topically 1 (one) time each day. Home (Next Home) linaCLOtide 290 mcg capsule Commonly known as: LINZESS Take 1 capsule (290 mcg total) by mouth 1 (one) time each day. LORazepam 0.5 mg tablet Commonly known as: Ativan Take 1 tablet (0.5 mg total) by mouth 1 (one) time each day if needed for anxiety (panic attack) for up to 10 days. Max Daily Amount: 0.5 mg melatonin 10 mg tablet 1 tab by mouth once daily at bedtime prn sleep nitroglycerin 0.4 mg SL tablet Commonly known as: NITROSTAT Place 1 tablet (0.4 mg total) under the tongue every 5 (five) minutes if needed. oxyCODONE 10 mg immediate release tablet Commonly known as: ROXICODONE Take 1 tablet (10 mg total) by mouth 2 (two) times a day if needed for severe pain for up to 7 days. Max Daily Amount: 20 mg Ozempic 1 mg/dose (4 mg/3 mL) injection pen Generic drug: semaglutide 1 mg subcutaneously every week rosuvastatin 40 mg tablet Commonly known as: CRESTOR Take 1 tablet (40 mg total) by mouth 1 (one) time each day. sacubitriL-valsartan 24-26 mg per tablet Commonly known as: ENTRESTO Take 1 tablet by mouth 2 (two) times a day. senna 8.6 mg tablet Commonly known as: SENOKOT Take 1 tablet (8.6 mg total) by mouth as needed. spironolactone 50 mg tablet Commonly known as: Aldactone Take 1 tablet (50 mg total) by mouth 1 (one) time each day. tamsulosin 0.4 mg 24 hr capsule Commonly known as: FLOMAX Take 1 capsule (0.4 mg total) by mouth 1 (one) time each day. Capsules should be taken 30 minutes following the same meal each day. topiramate 50 mg tablet Commonly known as: TOPAMAX Take 2 tablets (100 mg total) by mouth 1 (one) time each day in the evening. Where to Get Your Medications These medications were [facility] to [id number] [place] [facility] [address] [place] [address], [facility] [id number] nicotine 7 mg/24 hr Information about where to get these medications is not yet available Ask your nurse or doctor about these medications urea 20 % cream Case discussed with Dr Bentley Time spent: 35 min Cosigned by Jaren Bentley MD at 12/15/2024 12:16 PM EDT Associated attestation - Jaren Bentley MD - 12/15/2024 12:16 PM EDT This is a split/shared visit with PRATIMA Fischer. I personally performed the medical decision making (MDM) for the care of this patient on 12/13/2024 as documented below Patient was discussed with advanced practitioner . I personally saw and examined the patient bedside. Chart was reviewed by me personally including relevant history, updates, labs, imaging. Agree with the documentation and plan per RACHAEL except mentioned below. Patient is a 64 years old male with history of HFrEF and CAD presents to the hospital with concern of not feeling well and generalized anxiety. - He was found to have potassium of 2.8 on admission and admitted for further management. For hypokalemia replaced potassium. Levels improved. Monitored on cardiac telemetry - On chest x-ray patient seems to have possible pulmonary edema with some pleural effusion. Patienttakes Bumex at home. Has lower extremity edema as well. Started patient on IV furosemide. Volume status and respiratory symptoms improved during the hospital course. Patient walking in the hallway denying any shortness of breath. - Resume home dose of diuresis and okay for discharge. About 35 minutes spent independently today in discharge process for this patient including but not limited to chart review, clinical decision making, care coordination. Jaren Bentley MD 12/15/24 12:14 PM EDT documented in this encounter Medications at Time of Discharge acetaminophen (TYLENOL) 500 mg tabletIndications:P rimary osteoarthritis of both knees Take 2 tablets (1,000 mg total) by mouth every 8 (eight) hours if needed for mild pain or moderate pain. 100 tablet 5 5 03/04/20 25 amiodarone (PACERONE) 400 mg tablet 1 tab by mouth daily aspirin 81 mg EC tabletIndications:C oronary artery disease involving venetie coronary artery of venetie heart without angina pectoris Take 1 tablet (81 mg total) by mouth 1 (one) time each day. 28 each 5 09/24/19 26 bumetanide (BUMEX) 2 mg tabletIndications:C hronic systolic congestive heart failure (CMS/HCC V24, CMS/HCC V28) Take 1 tablet (2 mg total) by mouth 2 (two) times a day. 56 each 5 11/30/19 26 carvediloL (Coreg) 3.125 mg tabletIndications:A cute on chronic combined systolic and diastolic congestive heart failure (CMS/HCC V24, CMS/HCC V28) Take 1 tablet (3.125 mg total) by mouth 2 (two) times a day with meals. 56 each 5 10/19/19 26 dapagliflozin propanediol (FARXIGA) 10 mg tabletIndications:A cute on chronic combined systolic and diastolic congestive heart failure (CMS/HCC V24, CMS/HCC V28) Take 1 tablet (10 mg total) by mouth 1 (one) time each day. 28 each 5 10/19/19 26 docusate sodium (COLACE) 100 mg capsule Take 1 capsule (100 mg total) by mouth 2 (two) times a day. ergocalciferol (VITAMIN D-2) 1,250 mcg (50,000 unit) capsuleIndications: Vitamin D deficiency Take 1 capsule (50,000 Units total) by mouth 1 (one) time per week. 4 capsule 12/03/19 26 gabapentin (NEURONTIN) 800 mg tabletIndications:R adiculopathy, cervical Take 1 tablet (800 mg total) by mouth 3 (three) times a day. 1 tab by mouth 3 times per day 84 each 5 12/04/19 26 lidocaine (LIDODERM) 5 % patchIndications:Di abetic polyneuropathy associated with type 2 diabetes mellitus (CMS/HCC V24, CMS/HCC V28) Apply 2 patches topically 1 (one) time each day. Apply to painful area 12 hours per day, remove for 12 hours. 56 each 5 09/19/19 26 lidocaine (XYLOCAINE) 5 % ointmentIndications :Leg pain, anterior, left Apply topically 1 (one) time each day. Home (Next Home) 35.44 g 5 12/12/19 26 linaCLOtide (LINZESS) 290 mcg capsuleIndications: Constipation, chronic Take 1 capsule (290 mcg total) by mouth 1 (one) time each day. 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 Max Daily Amount: 0.5 mg 10 tablet 5 12/22/19 25 melatonin 10 mg tablet 1 tab by mouth once daily at bedtime prn sleep nicotine (NICODERM CQ) 7 mg/[address] 1 patch on the skin 1 (one) time each day for 14 days. 14 each 5 12/29/19 25 nitroglycerin (NITROSTAT) 0.[address] 1 tablet (0.4 mg total) under the tongue every 5 (five) minutes if needed. 1 rosuvastatin (CRESTOR) 40 mg tablet Take 1 tablet (40 mg total) by mouth 1 (one) time each day. sacubitriL-valsarta n (ENTRESTO) 24-26 mg per tabletIndications:A cute on chronic combined systolic and diastolic congestive heart failure (CMS/HCC V24, CMS/HCC V28) Take 1 tablet by mouth 2 (two) times a day. 56 each 5 08/01/20 26 semaglutide (Ozempic) 1 mg/dose (4 mg/3 mL) injection pen 1 mg subcutaneously every week senna (SENOKOT) 8.6 mg tablet Take 1 tablet (8.6 mg total) by mouth as needed. spironolactone (Aldactone) 50 mg tabletIndications:A cute on chronic combined systolic and diastolic congestive heart failure (CMS/HCC V24, CMS/HCC V28) Take 1 tablet (50 mg total) by mouth 1 (one) time each day. 28 each 5 12/12/19 26 tamsulosin (FLOMAX) 0.4 mg 24 hr capsuleIndications: Benign prostatic hyperplasia with urinary frequency Take 1 capsule (0.4 mg total) by mouth 1 (one) time each day. Capsules should be taken 30 minutes following the same meal each day. 28 each 07/25/19 topiramate (TOPAMAX) 50 mg tabletIndications:E pisodic tension-type headache, not intractable Take 2 tablets (100 mg total) by mouth 1 (one) time each day in the evening. 28 each 08/24/19 26 urea (CARMOL) 20 % cream Apply topically if needed for dry skin. 1 application to (affected) skin 2 times per day 5 documented as of this encounter Ordered Prescriptions Prescription Sig Dispense Quantity Refills Last Filled Start Date End Date urea (CARMOL) 20 % cream Apply topically if needed for dry skin. 1 application to (affected) skin 2 times per day 12/13/2024 nicotine (NICODERM CQ) 7 mg/[address] 1 patch on the skin 1 (one) time each day for 14 days. 14 each 12/14/2024 5 documented in this encounter Discharge Disposition Disposition Code Departure Means Destination Comment s Home-Health Care Svc documented in this encounter Progress Notes * Chelsea Torres RN - 12/13/2024 2:57 PM EDT Patient ready for discharge, VSS, prn angio removed. Discharge instructions discussed with patient at bedside. Patient verbalized understanding. Patient discharged home with Uzma Hernandes. Uzma Hernandes van to garbage pick up worker 4:30pm * MERCEDEZ Leonard - 12/13/2024 2:35 PM EDT Discharge: 12/13/24 1432 Discharge Planning Living Arrangements Alone Type of Residence Private residence Transportation Transportation at discharge Wheelchair [employer] providing transportation UZMA HERNANDES What day is the transport expected? 12/13/24 What time is the transport expected? 1630 Final Discharge Disposition Home Health Care Services Patient aware and in agreement with discharge. * MERCEDEZ Leonard - 12/13/2024 11:36 AM EDT User Experience Team Lead- CM Progress Note Patient continues to require acute level hospital care. SAMANTHA: 12/14/24 Barriers: monitoring renal function Disposition: HOME HEALTH- Uzma HERNANDES RN to follow. Uzma HERNANDES to provide transportation home. human services assistant will remain available to assess, support, provide advocacy and assist with discharge planning as appropriate. * No Atkins RRT - 12/13/2024 9:58 AM EDT 12/13/24 0957 Qualify for Home O2 On at rest Room air SpO2 at rest 99 % On with exertion Room air SpO2 w/ exertion 100 % Amount of exertion time walked 6 Minutes Patient mobile at home? Yes Pt does not qualify for home o2 * MERCEDEZ Leonard - 12/12/2024 1:34 PM EDT Case management intake: 12/12/24 1323 Initial Transition Plan Initial Transition Plan Home Health Care (Uzma HERNANDES RN active for wound care) Discharge Planning Living Arrangements Alone Type of Residence Private residence (3rd floor apartment with elevator access) Assistive Devices Other (Comment) (Bariatric rollator) Medication Coverage Has Med Coverage Under Insurance Plan Yes Anticipated Discharge Needs Home Health RN Informed Choice Informed Choice Given? Yes Discharge Barriers Barriers to Discharge Plan Medically complex placement (labs, blood cultures, tele monitoring, I&O, IV lasix) Transportation Transportation at discharge -- SAMANTHA: 12/13/24 Patient active with Uzma HERNANDES. He was able to confirm demographics and information. human services assistant will remain available to assess, support, and provide advocacy as indicated. * Pita Huston RN - 12/12/2024 12:32 PM EDT Images from the original note were not included. Wound Care Initial Consult Visit Date: 12/12/2024 Patient Name: Jay Mejia Date of : 1960 Reason for Consult: Bilateral legs PVD and left left open pretibial open wound Wound History: 1. Hypokalemia 2. CKD stage 3a, GFR 45-59 ml/min (CMS/HCC V24, CMS/HCC V28) 3. Anxiety Nutritional Status: Good Pertinent Labs: Albumin Date Value Ref Range Status 12/11/2024 4.0 3.2 - 5.0 g/dL Final WBC Date Value Ref Range Status 12/12/2024 9.2 4.8 - 10.8 K/mcL Final Hemoglobin A1C Date Value Ref Range Status 12/11/2024 8.5 (H) <6.5 % Final Glucose POCT Date Value Ref Range Status 12/12/2024 309 (H) 70 - 100 mg/dL Final Wound Assessment: Wound Blister 11/07/24 Pretibial Left (Active) Wound Image Wound assessment: Wound beds pink, with granulated tissue, and fibrin. Dian wound moist and edematous. 12/12/24 1059 Wound Bed Tissue Assessment Granulation;New Era;Fibrinous 12/12/24 1059 Dian-Wound Assessment Edema;Moist ;Hyperpigmented 12/12/24 1059 Wound Length (cm) 5 cm 12/12/24 1059 Wound Width (cm) 3.5 cm 12/12/24 1059 Wound Surface Area (cm^2) 17.5 cm^2 12/12/24 1059 Wound Depth (cm) 0.1 cm 12/12/24 1059 Wound Volume (cm^3) 1.75 cm^3 12/12/24 1059 Wound Healing % 68 12/12/24 1059 Drainage Description Serous 12/12/24 1059 Dressing Hydrocolloid;ABD;Cecile 12/12/24 1059 Dressing Changed Changed 12/12/24 1059 Dressing Status Clean;Dry;Intact 12/12/24 1059 Non-staged Wound Description Partial thickness 12/12/24 1059 Support Surface: Remberto score 20. Patient able to move and reposition self. Wound Summary Assessment: See above. Wound Plan: Left pretibial lower leg: aquacel Ag to open wound beds, cover with ABD, Cecile wrap. Bilateral legs recommend Man wraps and elevating legs. Education: Educated to elevate legs. 12/12/2024 12:33 PM EDT * PRATIMA Fischer - 12/12/2024 11:01 AM EDT Jay Mejia 12/12/2024 1960 64 y.o. [id number] [facility]* SUBJECTIVE : Reporting being anxious. Denies anger chest pain, shortness of breath, suicidal ideation, homicidalideation. OBJECTIVE: Visit Vitals BP (!) 140/87 Pulse 64 Temp 36.6 ??C (97.9 ??F) (Oral) Resp 22 Temp (24hrs), Av.5 ??C (97.7 ??F), Min:36.4 ??C (97.5 ??F), Max:36.6 ??C (97.9 ??F) Body mass index is 42.86 kg/m??. No results found for: PTWT , PTHT Intake/Output Summary (Last 24 hours) at 12/12/2024 1101 Last data filed at 12/12/2024 0431 Gross per 24 hour Intake 1199 ml Output -- Net 1199 ml Wt Readings from Last 1 Encounters: 12/11/24 2157 143 kg (316 lb) PHYSICAL EXAM: GEN: Alert, oriented. No distress. Obese, irritable. HEENT: Atraumatic, symmetric, PERRLA. Neck: Supple, nontender, no range of motion limitation. Lungs: Clear, no accessory muscle use. Heart: Regular, no murmur. Lower extremities with chronic skin lesions, swelling. Abdomen: Not distended, soft, nontender. Bowel sounds present. MSK: Left lower extremity with wound bandage. Neuro: Alert, oriented. Cranial nerves II to XII grossly intact. No facial droop. No motor deficit. Psych: Irritable. RESULTS: CBC BMP Results from last 7 days Lab Units 12/12/24 0558 12/11/24 2252 WBC AUTO K/mcL 9.2 9.9 HEMOGLOBIN g/dL 16.2 15.9 HEMATOCRIT % 50.8 50.5 PLATELETS K/mcL 165 182 LYMPHS PCT AUTO % 26.4 23.6 MONO PCT AUTO % 10.3 10.4 EOS PCT AUTO % 1.2 0.5 Results from last 7 days Lab Units 12/12/24 0558 12/11/24 2252 SODIUM mmol/L 129* 128* POTASSIUM mmol/L 3.2* 2.8* CHLORIDE mmol/L 87* 82* CO2 mmol/L 35* 37* ANION GAP 7 9 BUN mg/dL 28* 29* CREATININE mg/dL 1.27 1.50* CALCIUM mg/dL 9.2 9.5 MAGNESIUM mg/dL -- 2.4 Results from last 7 days Lab Units 12/12/24 0558 12/11/24 2252 GLUCOSE mg/dL 204* 169* Results from last 7 days Lab Units 12/11/24 2252 AST unit/L 67* ALT unit/L 98* Imaging: Scheduled Medications PRN Medications IV Medications amiodarone, 400 mg, Daily aspirin, 81 mg, Daily [Held by provider] bumetanide, 2 mg, BID carvediloL, 3.125 mg, BID with meals docusate sodium, 100 mg, BID enoxaparin, 40 mg, q12h MELODIE furosemide, 40 mg, Once furosemide, 80 mg, BID 12-04 gabapentin, 800 mg, q8h MELODIE nicotine, 1 patch, Daily rosuvastatin, 40 mg, Daily sacubitriL-valsartan, 1 tablet, BID sodium chloride, 10 mL, BID spironolactone, 50 mg, Daily tamsulosin, 0.4 mg, Daily topiramate, 100 mg, q PM acetaminophen, 650 mg, q4h PRN albuterol, 2.5 mg, q4h PRN LORazepam, 0.5 mg, Daily PRN melatonin, 10 mg, Nightly PRN ondansetron (ZOFRAN-ODT) disintegrating tablet, 4 mg, q8h PRN Or ondansetron, 4 mg, q8h PRN senna, 1 tablet, Nightly PRN sodium chloride, 10 mL, PRN ASSESSMENT/PLAN: Anxiety 64-year-old male with PMH HFrEF 25-30%, cardiomyopathy, ICD, cocaine use, HTN, HLD,CAD-CABG who presented to ED for anxiety secondary to many health issues. He denied any SI, HI. On presentation, vital signs stable. This morning, patient continued to report being anxious. Patient is alert and oriented, however irritable. Patient was advised to follow-up with PCP for anxiety issues. Electrolyte abnormality Hypokalemia: Potassium 3.2 from 2.8. Potassium being replaced. Hyponatremia: Sodium level 129 from 128. Serum osmolality normal. Urine osmolality 460, urine sodium 53. Monitoring. Altered mental status/acute toxic encephalopathy. On admission, patient was reported to have AMS. Tox CT brain without contrast negative for acute finding. Screen positive cocaine, cannabis. This morning, patient is alert and oriented, however irritable. Monitoring. Chronic systolic CHF Secondary to ischemic cardiomyopathy? EF 30 to 35% Status post ICD Chest x-ray showing left pleural effusion? (discussed with radiologist: Recommended 2 views chest x-ray). Left lower extremity with swelling. Low-salt diet, fluid restriction. P.o. Bumex switched to IV furosemide. Continue with carvedilol, Entresto, spironolactone. Farxiga added. I&O's and daily weight. CAD Patient continues to smoke. He has diabetes. Uses cocaine. Low-dose aspirin, carvedilol, statin. Smoking and cocaine cessation strongly advised. Left lower extremity wound Left lower extremity with bandage. See picture in HPI Pending wound consult. Type 2 diabetes A1c 8.5. On low-carb diet, SSI Tobacco abuse On nicotine patch. BMI 42.86 Follow-up with PCP for weight management CODE STATUS Full DVT prophylaxis Lovenox Case discussed with Dr Bentley Time spent: 35 min Cosigned by Jaren Bentley MD at 12/15/2024 12:14 PM EDT Associated attestation - Jaren Bentley MD - 12/15/2024 12:14 PM EDT This is a split/shared visit with PRATIMA Fischer. I personally performed the medical decision making (MDM) for the care of this patient on 12/12/2024 as documented below Patient was discussed with advanced practitioner . I personally saw and examined the patient bedside. Chart was reviewed by me personally including relevant history, updates, labs, imaging. Agree with the documentation and plan per RACHAEL except mentioned below. Patient is a 64 years old male with history of HFrEF and CAD presents to the hospital with concern of not feeling well and generalized anxiety. - He was found to have potassium of 2.8 on admission and admitted for further management. For hypokalemia replacing potassium. Levels improved. Monitor on cardiac telemetry - On chest x-ray patient seems to have possible pulmonary edema with some pleural effusion. Patienttakes Bumex at home. Has lower extremity edema as well. Start patient on IV furosemide. Jaren Bentley MD 12/15/24 12:04 PM EDT * Rashid Reynolds RN - 12/12/2024 6:02 AM EDT ED RN HANDOFF (All Gomez Below Must Be Completed) Reason/Diagnosis for Admission: HYPOKALEMIA Type of Admission: [] Medsurg, [x] Telemetry Already in a Hospital Bed: [] Yes / [x] No Room Considerations/Precautions (ex: fever, diarrhea, or any infectious concerns): [] Yes / [x] No Criminal Justice Social Worker: [x] Yes / [] No If YES, Cardiac Rhythm: [x] NSR, [x] SB, [] ST, [] A-FIB, [] A-Flutter, [] Pacemaker, [] 1st DegreeHB, [] 2nd Degree HB, [] 3rd Degree HB HEART RATES RANGING BETWEEN 55-65 Reason for Criminal Justice Social Worker: HYPOKALEMIA VS: Visit Vitals BP 113/71 (BP Location: Right arm;Upper, Patient Position: Sitting) Pulse 62 Temp 36.6 ??C (97.9 ??F) (Oral) Resp 18 Ht 1.829 m (72 ) Wt 143 kg (316 lb) SpO2 98% BMI 42.86 kg/m?? Smoking Status Every Day BSA 2.59 m?? Current Mental Status: A/O x []4, [x]3, []2, []1 Current Ambulation Status: INDEPENDENT, STANDBY IV Access: [x] Yes / [] No Field IV present: [] Yes / [x] No Hx of Violence: [] Yes / [x] No / [] Unknown Fall Risk:[] Yes / [x] No Yellow Bracelet Applied [] Yes / [] No Yellow Socks Applied [] Yes / [] No Patient Belongings inventoried and BL completed: [] Yes / [] No Patient belongings stored in the security closet: [] Yes (If Yes please supply Security bag #): [x] No Patient Medications stored in Pharmacy: [] Yes (If Yes please supply Medication Security bag #): [x] No Rashid Reynolds RN 12/12/24 0603 * Shanique Cardenas RN - 12/11/2024 10:04 PM EDT Pt c/o anxiety. Has been dealing with anxiety for 2 weeks. Seen by [facility] program earlier todayand was given PO ativan with improvement however after if wore off anxiety returned. Upset that he was not given enough ativan to get him through the night. Denies CP. Feels sob but states that had resolved after taking the ativan and returned after. Denies SI/HI. States BP usually runs low * Geronimo Rodriguez RN - 12/11/2024 9:44 PM EDT Pt presents from local streets, reported shortness of breath with associated anxiety, onset x 1 week, seen at clinic today- given ativan without effect. Alert and oriented x 3 * Alyssa Blancas NP - 12/11/2024 9:38 PM EDT Images from the original note were not included. [facility] EMERGENCY EMERGENCY DEPARTMENT ENCOUNTER CHIEF COMPLAINT Chief Complaint Patient presents with Anxiety HISTORY OF PRESENT ILLNESS 64-year-old male who presents to the emergency department complaining that he is anxious. Patient states that he was seen in clinic and given 1 Ativan which helped his anxiety but as soon as it wore off he became anxious again. He has a significant number of chronic medical problems including cardiac disease, hepatitis C, history of cocaine abuse, untreated sleep apnea & chronic renal disease. His initial presentation was just asking for additional Ativan, however nurses in triage were concerned that there might be a physiological problem causing his anxiety and after discussion with me labs were ordered. Pt reporting he cannot think straight. States he is getting confused easily and canont hold a conversation with anyone. He has shortness of breath whenever he tries to talk or do anything. He has some CP and palpitations over the last week or so, but resolves before he takes anything. Ankles are painful and swollen more than usual. Feels tired all the time. PAST MEDICAL HISTORY Past Medical History: Diagnosis Date Anasarca DX:Anasarca Anxiety DX:Anxiety CHF (congestive heart failure) (CMS/HCC V24, CMS/HCC V28) CHF exacerbation (CMS/HCC V24, CMS/HCC V28) DX:CHF exacerbation (HCC) Cocaine abuse (CMS/HCC V24, CMS/HCC V28) DX:Cocaine abuse (HCC) Hepatitis C infection DX:Hepatitis C infection; COMMENT: cleared, neg RNA 01/05 History of fall History of hepatitis C Obesity DX:Obesity Obesity DX:Obesity INGRID (obstructive sleep apnea) DX:INGRID (obstructive sleep apnea) Overgrown toenails DX:Overgrown toenails Presence of combination internal cardiac defibrillator (ICD) and pacemaker Presence of stent in coronary artery Status post coronary artery bypass graft Systolic CHF, acute on chronic ([facility] V24, [facility] V28) 04/09/2024 Trochanteric bursitis, left hip 04/09/2024 Patient Active Problem List Diagnosis CAD (coronary artery disease) Cardiac defibrillator in place Acute on chronic combined systolic and diastolic congestive heart failure ([facility] V24, [facility] V28) Diabetes mellitus ([facility] V24, [facility] V28) Dyslipidemia Hypertensive disorder Polysubstance abuse ([facility] V24, [facility] V28) Shortness of breath Other specified disorders of bone density and structure, multiple sites Abnormal liver function tests Cholelithiasis Chronic allergic rhinitis Benign prostatic hyperplasia with lower urinary tract symptoms Chronic systolic congestive heart failure ([facility] V24, [facility] V28) Constipation, chronic Vitamin D deficiency Depression, major, recurrent, moderate ([facility] V24, [facility] V28) Generalized anxiety disorder with panic attacks Candidiasis of skin Plantar fasciitis Neurologic gait dysfunction Headache Neck muscle spasm Tremor of both hands Type 2 diabetes mellitus with hyperglycemia ([facility] V24, [facility] V28) Hypertensive heart disease with heart failure ([facility] V24, [facility] V28) Insomnia Meralgia paresthetica Diabetic polyneuropathy associated with type 2 diabetes mellitus ([facility] V24, [facility] V28) Obesity, morbid ([facility] V24, [facility] V28) Obstructive sleep apnea Osteoarthritis Radiculopathy, cervical Type 2 diabetes mellitus with peripheral artery disease ([facility] V24, [facility] V28) Chronic venous insufficiency Onychomycosis Callus Xerosis of skin Restrictive lung disease Sleep paralysis Smokes cigarettes Ventricular tachycardia ([facility] V24, [facility] V28) Cataract associated with type 2 diabetes mellitus ([facility] V24, [facility] V28) Presbyopia Arcus senilis of both eyes Vestibular migraine Erectile dysfunction associated with type 2 diabetes mellitus ([facility] V24, [facility] V28) Contusion of lower back Parkinsonism ([facility] V24, [facility] V28) Bilateral leg edema Cogwheel rigidity Mixed simple and mucopurulent chronic bronchitis ([facility] V24, [facility] V28) Medication management Alcohol abuse, episodic Other specified anxiety disorders Leg wound, left, sequela Contusion of dorsum of right hand SURGICAL HISTORY Past Surgical History: Procedure Laterality Date CORONARY ARTERY BYPASS GRAFT PROCEDURE: HISTORICAL CABG CURRENT MEDICATIONS Previous Medications ACETAMINOPHEN (TYLENOL) 500 MG TABLET Take 2 tablets (1,000 mg total) by mouth every 8 (eight) hours if needed for mild pain or moderate pain. ALBUTEROL HFA (VENTOLIN HFA) 90 MCG/ACTUATION INHALER Inhale 2 puffs by mouth every 4 (four) hours if needed for wheezing or shortness of breath. AMIODARONE (PACERONE) 400 MG TABLET 1 tab by mouth daily ASPIRIN 81 MG EC TABLET Take 1 tablet (81 mg total) by mouth 1 (one) time each day. BUMETANIDE (BUMEX) 2 MG TABLET Take 1 tablet (2 mg total) by mouth 2 (two) times a day. CARVEDILOL (COREG) 3.125 MG TABLET Take 1 tablet (3.125 mg total) by mouth 2 (two) times a day withmeals. DAPAGLIFLOZIN PROPANEDIOL (FARXIGA) 10 MG TABLET Take 1 tablet (10 mg total) by mouth 1 (one) time each day. DOCUSATE SODIUM (COLACE) 100 MG CAPSULE Take 1 capsule (100 mg total) by mouth 2 (two) times a day. ERGOCALCIFEROL (VITAMIN D-2) 1,250 MCG (50,000 UNIT) CAPSULE Take 1 capsule (50,000 Units total) bymouth 1 (one) time per week. GABAPENTIN (NEURONTIN) 800 MG TABLET Take 1 tablet (800 mg total) by mouth 3 (three) times a day. 1tab by mouth 3 times per day LIDOCAINE (LIDODERM) 5 % PATCH Apply 2 patches topically 1 (one) time each day. Apply to painful area 12 hours per day, remove for 12 hours. LIDOCAINE (XYLOCAINE) 5 % OINTMENT Apply topically 1 (one) time each day. Home (Next Business Day Home) LINACLOTIDE (LINZESS) 290 MCG CAPSULE Take 1 capsule (290 mcg total) by mouth 1 (one) time each day. LORAZEPAM (ATIVAN) 0.5 MG TABLET Take 1 tablet (0.5 mg total) by mouth 1 (one) time each day if needed for anxiety (panic attack) for up to 10 days. Max Daily Amount: 0.5 mg MELATONIN 10 MG TABLET 1 tab by mouth once daily at bedtime prn sleep NITROGLYCERIN (NITROSTAT) 0.[address] 1 tablet (0.4 mg total) under the tongue every 5 (five) minutes if needed. OXYCODONE (ROXICODONE) 10 MG IMMEDIATE RELEASE TABLET Take 1 tablet (10 mg total) by mouth 2 (two) times a day if needed for severe pain for up to 7 days. Max Daily Amount: 20 mg ROSUVASTATIN (CRESTOR) 40 MG TABLET Take 1 tablet (40 mg total) by mouth 1 (one) time each day. SACUBITRIL-VALSARTAN (ENTRESTO) 24-26 MG PER TABLET Take 1 tablet by mouth 2 (two) times a day. SEMAGLUTIDE (OZEMPIC) 1 MG/DOSE (4 MG/3 ML) INJECTION PEN 1 mg subcutaneously every week SENNA (SENOKOT) 8.6 MG TABLET Take 1 tablet (8.6 mg total) by mouth as needed. SPIRONOLACTONE (ALDACTONE) 50 MG TABLET Take 1 tablet (50 mg total) by mouth 1 (one) time each day. TAMSULOSIN (FLOMAX) 0.4 MG 24 HR CAPSULE Take 1 capsule (0.4 mg total) by mouth 1 (one) time each day. Capsules should be taken 30 minutes following the same meal each day. TOPIRAMATE (TOPAMAX) 50 MG TABLET Take 2 tablets (100 mg total) by mouth 1 (one) time each day in the evening. UREA (CARMOL) 20 % CREAM if needed. 1 application to (affected) skin 2 times per day ALLERGIES Shellfish containing products and Tramadol FAMILY HISTORY Family History Problem Relation Name Age of Onset Other (Other: Epilepsy) Mother Alcohol abuse Father Parkinson's Disease Brother Alcohol abuse Brother Alcohol abuse Brother SOCIAL HISTORY Social History Socioeconomic History Marital status: Spouse name: Not on file Number of children: Not on file Years of education: Not on file Highest education level: Not on file Occupational History Not on file Tobacco Use Smoking status: Every Day Current packs/day: 0.50 Average packs/day: 0.5 packs/day for 31.2 years (15.6 ttl pk-yrs) Types: Cigarettes Start date: 09/14/1993 Smokeless tobacco: Never Substance and Sexual Activity Alcohol use: Not Currently Drug use: Never Frequency: 2.0 times per week Types: Marijuana/Cannabis Comment: Has not used Cocaine in a long time Sexual activity: Not Currently Other Topics Concern Not on file Social History Narrative Merged History Encounter Vitals: 12/11/24 2157 BP: 97/76 BP Location: Left arm;Upper Patient Position: Sitting Pulse: 63 Resp: 20 Temp: 36.5 ??C (97.7 ??F) TempSrc: Oral SpO2: 95% Weight: 143 kg (316 lb) Height: 1.829 m (72 ) Pulse Oximetry 95% interpretation normal in my independent interpretation Supplemental Oxygen: Room air PHYSICAL EXAM Physical Exam Vitals and nursing note reviewed. Constitutional: General: He is in acute distress (dyspnea - when he tries to talk.). Appearance: He is obese. He is ill-appearing. He is not diaphoretic. HENT: Head: Normocephalic and atraumatic. Mouth/Throat: Mouth: Mucous membranes are moist. Cardiovascular: Rate and Rhythm: Normal rate and regular rhythm. Pulses: Normal pulses. Heart sounds: Normal heart sounds. Pulmonary: Effort: Pulmonary effort is normal. Breath sounds: Normal breath sounds. Abdominal: Tenderness: There is no abdominal tenderness. There is no right CVA tenderness, left CVA tendernessor guarding. Comments: Obese Musculoskeletal: General: Swelling and tenderness present. Cervical back: Normal range of motion and neck supple. Right lower leg: Edema present. Left lower leg: Edema present. Skin: General: Skin is warm and dry. Capillary Refill: Capillary refill takes less than 2 seconds. Comments: Pt has dressing on LLE that was placed at his PCP office today. States he has diabetic blisters that they are treating with silvadene. Neurological: Mental Status: He is alert and oriented to person, place, and time. Comments: Unable to complete sentences. Trouble keeping his thoughts together. Psychiatric: Comments: Anxious. DIAGNOSTIC RESULTS Based on the patient's history and physical exam the following labs and radiology studies were ordered in order to evaluate, work-up and determine best course of treatment for the patient. The studies are independently interpreted by me as follow here or in the MDM section or ED course section: Labs Reviewed COMPREHENSIVE METABOLIC PANEL - Abnormal Result Value Sodium 128 (*) Potassium 2.8 (*) Chloride 82 (*) CO2 37 (*) Anion Gap 9 Glucose 169 (*) BUN 29 (*) Creatinine 1.50 (*) eGFR 51 (*) BUN/Creatinine Ratio 19.3 Calcium 9.5 AST (SGOT) 67 (*) ALT (SGPT) 98 (*) Alkaline Phosphatase 116 Total Protein 7.7 Albumin 4.0 Total Bilirubin 0.7 LIPASE - Abnormal Lipase 87 (*) CBC WITH AUTO DIFFERENTIAL - Abnormal WBC 9.9 RBC 5.90 (*) Hemoglobin 15.9 Hematocrit 50.5 MCV 85.4 MCH 26.9 (*) MCHC 31.5 (*) RDW 13.7 Platelets 182 MPV 11.2 (*) NRBC 0.0 NRBC Absolute 0.00 Neutrophils Relative 64.7 Lymphocytes Relative 23.6 Monocytes Relative 10.4 Eosinophils Relative 0.5 Basophils Relative 0.3 Immature Granulocytes Relative 0.5 Neutrophils Absolute 6.37 Lymphocytes Absolute 2.33 Monocytes Absolute 1.03 (*) Eosinophils Absolute 0.05 Basophils Absolute 0.03 Immature Granulocytes Absolute 0.05 (*) TROPONIN I HIGH SENSITIVITY - Normal High Sensitivity Troponin I 30 Narrative: High levels of biotin in samples may falsely decrease hsTroponin values. Use caution when interpreting hsTroponin results in patients taking biotin who exhibit renal impairment (eGFR <60) or in patients taking more than 20 mg/day of biotin. MAGNESIUM - Normal Magnesium 2.4 B-TYPE NATRIURETIC PEPTIDE - Normal BNP 79 CBC AND DIFFERENTIAL Narrative: The following orders were created for panel order CBC and differential. Procedure Abnormality Status --------- ------ CBC auto differential[[id number]] Abnormal Final result Please view results for these tests on the individual orders. TROPONIN I HIGH SENSITIVITY XR Chest 2 Views (Results Pending) I personally reviewed the patient's images and agree with radiologist interpretation unless otherwise noted here or in ED course or MDM section Encounter Date: 12/12/24 ECG 12 lead Result Value Ventricular Rate ECG 61 Atrial Rate 61 P-R Interval 202 QRS Duration 108 Q-T Interval 436 QTc 438 P Wave [place] 37 R [place] 65 T [place] 13 ECG Interpretation Normal sinus rhythm Low voltage QRS Possible Anterolateral infarct (cited on or before 01-DEC-2024) T wave abnormality, consider inferior ischemia Abnormal ECG When compared with ECG of 01-DEC-2024 21:38, Premature ventricular complexes are no longer Present *Note: Due to a large number of results and/or encounters for the requested time period, some results have not been displayed. A complete set of results can be found in Results Review. If an EKG was performed on today's visit and is documented above or within the ED course section, Iindependently interpreted/read the EKG as noted above at the time of service as above in the ED course section. Normal sinus rhythm Low voltage QRS Possible Anterolateral infarct (cited on or before 01-DEC-2024) T wave abnormality, consider inferior ischemia Abnormal ECG When compared with ECG of 01-DEC-2024 21:38, Premature ventricular complexes are no longer Present EMERGENCY DEPARTMENT COURSE and DIFFERENTIAL DIAGNOSIS/MDM: ED Course as of 12/12/24 0426 [facility] Dec 12, 2024 0048 Troponin I high sensitivity [LB] 0340 UDS + for cocaine and marijuana despite telling me upon arrival that he has not been using drugs. UDS from 12/03/2024 was negative. [LB] ED Course User Index [LB] Alyssa Blancas NP Clinical Impressions as of 12/12/24 0426 Hypokalemia CKD stage 3a, GFR 45-59 ml/min (CMS/HCC V24, CMS/HCC V28) Anxiety History providers: Patient Patient Presents With a New Acute Problem with: Uncertain prognosis, Systemic symptoms, and Threat to life or bodily/organ/limb function Patient presents with a chronic problem with: Progression of underlying disease and Threat to life, bodily/organ/limb function Non-compliance Care discussed with: Nursing staff here Hospitalist. Social determinants of health that significantly limited prognosis, diagnosis and/or treatment: poor physical or mental health low income/no income medicare/medicaid which limits access to primary care and specialists inability to afford medications Substance use disorder Tobacco use Psychiatric illness Differential diagnosis: Hypokalemia CKD Anxiety Cocaine abuse Marijuana abuse Benzodiazepine seeking behavior Diabetic Ulcer L ankle Risk factors to consider in determining the patient's fitness for procedures and or prognosis related to current illness include: Obesity, Lack of excercise, Sedentary lifestyle, HTN, DM, HLD, Smoking, Drug use, and CKD Labs: Ordered, Reviewed, and Interpreted; See results and POC. Radiology: Ordered, Reviewed, and Independently interpreted: CT - no acute findings, microvascular disease of aging. CXR - not completed at time of transfer of care to hospitalist. External data reviewed and/or prior visits reviewed: Prior visits for similar complaints. Notes, Labs, Radiology, and EKG Treatment and interventions considered or used: Medications: OTC medication and Prescribed medications Admission Considerations: Decision made regarding hospitalization: Hospitalist evaluated pt and he agreed to stay. Based on the above history and exam as well as the results as listed the following medications and/or treatments were ordered in order to treat and stabilize the patient's condition: Medications sodium chloride 0.9 % bolus 1,000 mL (has no administration in time range) potassium chloride 10 mEq/100 mL IVPB 10 mEq (has no administration in time range) LORazepam (ATIVAN) tablet 1 mg (has no administration in time range) REASSESSMENT Stable CONSULTS: WOUND OSTOMY EVAL AND TREAT CRITICAL CARE NOTE : 4:30 AM EDT NOTES : I have spent 0 minutes of critical care time involved in lab review, consultations with specialist,family decision- making, bedside attention and documentation. This time excludes time spent in any separate billed procedures. During this entire length of time I was immediately available to the patient . Alyssa Blancas NP DISPOSITION/PLAN Observation 12/12/2024 04:27:53 AM Admission Note: Patient is being admitted to the hospital by [facility] Service: Admitting provider: Hospitalist. The results of their tests and reasons for their admission have been discussed with them and available family. They convey agreement and understanding for the need to be admitted and for their admission diagnosis. FINAL IMPRESSION DIAGNOSES: 1. Hypokalemia 2. CKD stage 3a, GFR 45-59 ml/min (CMS/HCC V24, CMS/HCC V28) 3. Anxiety (Please note that portions of this note were completed with a voice recognition program. Quite often unanticipated grammatical, syntax, homophones, and other interpretive errors are inadvertently transcribed by the computer software. These should have been corrected during proofreading. If you haveany questions, please contact the author of this note for clarification.) Note to patient: It was a pleasure taking care of you today. The Century Cures Act makes medical notes like this one available to patients in the interest of transparency. However, be advised that this is a medical document. It is intended as physician to physician communication. It is writtenin medical language and may contain abbreviations or verbiage that are unfamiliar. It may appear blunt or direct or even insulting if taken out of the clinical communication context. Medical documents are not meant to communicate to patients, they are intended to carry relevant information, facts as evident, and the clinical opinion of the practitioner. Alyssa Blancas NP (electronically signed) 4:30 AM EDT Alyssa Blancas NP 12/12/24 0207 Alyssa Blancas NP 12/12/24 0432 Cosigned by Andrews Mendoza MD at 12/12/2024 5:27 PM EDT documented in this encounter H&P Notes * PRATIMA Chan - 12/12/2024 4:55 AM EDT Images from the original note were not included. PHILLIP HISTORY AND PHYSICAL Please contact author [PRATIMA Chan] via [employer]. Patient: Jay Mejia Admission Date/Time: 12/12/2024 1:24 AM : 1960 [64 y.o.] Patient's PCP: Deloris Tobias NP Attending Provider: Janine Ortiz MD CHIEF COMPLAINT Anxiety HISTORY OF PRESENT ILLNESS Mr. Mejia is a 64-year-old male with PMH HFrEF 25-30%, cardiomyopathy, ICD, cocaine use, HTN, HLD,CAD-CABG amongst others who presented today with complaint of anxiety. Patient reports he. He was seen earlier today and given Ativan via his primary care. He decided to come in for further evaluation because it was wearing off and he was feeling more anxious. He also noted earlier today that he felt more confused and was having difficulty holding a conversation. He does endorse shortness of breath that he states has been ongoing and he becomes winded with even small tasks. He denied any chest pain to me but reported chest pain and palpitations to the ED provider for the last week or so. He states he has been taking his medication as prescribed (although there was previous history of noncompliance). He does endorse he smokes cigarettes daily and has used cocaine recently but denies any alcohol or other drug use (he also tested positive for marijuana). He denies any fevers or chills, vomiting, abdominal pain, diarrhea, dysuria. He does endorse leg swelling and a wound on his left leg. He also endorses occasional productive cough of clear sputum. Regarding his confusion during my interview he is alert and oriented and is able to provide history. Vitals are as follows: Temperature of 36.5, pulse of 63, respiratory rate 20, blood pressure of 97/76 and pulse ox of 95% on room air. Patient's labs notable for sodium of 128, potassium of 2.8, glucose of 169 BUN of 29, creatinine of 1.5, lactic of 1.4, BNP of 79, troponin of 30, 31, CRP of 0.5, white blood cell count of 9.9, alcohol level of less than 3, drug screen positive for cocaine and marijuana. Blood cultures ordered and pending. EKG was 61 bpm normal sinus rhythm with low voltage QRS and QTc of 438. Brain CT showed no acute intracranial process, moderate advanced changes of chronic microvascular ischemic disease with age-related global parenchymal volume loss, mucosal thickening of the ethmoid sinuses. Chest x-ray pending formal read but appears to show blunting of the costophrenic angles bilaterally as well as mild pulmonary edema pattern. Patient was given 1 L normal saline bolus, Ativan, potassium p.o. and IV in the ED. Patient will be transferred to the care of [facility] staff for further management of their hypokalemia. Review of Systems Review of Systems 10 point review of systems negative as otherwise stated in the HPI MEDICAL HISTORY Past Medical History Past Medical History: Diagnosis Date Anasarca DX:Anasarca Anxiety DX:Anxiety CHF (congestive heart failure) (CMS/HCC V24, CMS/HCC V28) CHF exacerbation (CMS/HCC V24, CMS/HCC V28) DX:CHF exacerbation (HCC) Cocaine abuse (CMS/HCC V24, CMS/HCC V28) DX:Cocaine abuse (HCC) Hepatitis C infection DX:Hepatitis C infection; COMMENT: cleared, neg RNA 01/05 History of fall History of hepatitis C Obesity DX:Obesity Obesity DX:Obesity INGRID (obstructive sleep apnea) DX:INGRID (obstructive sleep apnea) Overgrown toenails DX:Overgrown toenails Presence of combination internal cardiac defibrillator (ICD) and pacemaker Presence of stent in coronary artery Status post coronary artery bypass graft Systolic CHF, acute on chronic ([facility] V24, [facility] V28) 04/09/2024 Trochanteric bursitis, left hip 04/09/2024 Past Surgical History Past Surgical History: Procedure Laterality Date CORONARY ARTERY BYPASS GRAFT PROCEDURE: HISTORICAL CABG Social History reports that he has been smoking cigarettes. He started smoking about 31 years ago. He has a 15.6 pack-year smoking history. He has never used smokeless tobacco. He reports that he does not currentlyuse alcohol. He reports that he does not use drugs. Family History family history includes Alcohol abuse in his brother, brother, and father; Other: Epilepsy in his mother; Parkinson's Disease in his brother. Allergies is allergic to shellfish containing products and tramadol. Home Medications No current facility-administered medications on file prior to encounter. Current Outpatient Medications on File Prior to Encounter Medication Sig Dispense Refill acetaminophen (TYLENOL) 500 mg tablet Take 2 tablets (1,000 mg total) by mouth every 8 (eight) hours if needed for mild pain or moderate pain. 100 tablet 5 albuterol HFA (Ventolin HFA) 90 mcg/actuation inhaler Inhale 2 puffs by mouth every 4 (four) hours if needed for wheezing or shortness of breath. 8 g 0 amiodarone (PACERONE) 400 mg tablet 1 tab by mouth daily aspirin 81 mg EC tablet Take 1 tablet (81 mg total) by mouth 1 (one) time each day. 28 each 11 bumetanide (BUMEX) 2 mg tablet Take 1 tablet (2 mg total) by mouth 2 (two) times a day. 56 each 11 carvediloL (Coreg) 3.125 mg tablet Take 1 tablet (3.125 mg total) by mouth 2 (two) times a day withmeals. 56 each 11 dapagliflozin propanediol (FARXIGA) 10 mg tablet Take 1 tablet (10 mg total) by mouth 1 (one) time each day. 28 each 11 docusate sodium (COLACE) 100 mg capsule Take 1 capsule (100 mg total) by mouth 2 (two) times a day. ergocalciferol (VITAMIN D-2) 1,250 mcg (50,000 unit) capsule Take 1 capsule (50,000 Units total) bymouth 1 (one) time per week. 4 capsule 11 gabapentin (NEURONTIN) 800 mg tablet Take 1 tablet (800 mg total) by mouth 3 (three) times a day. 1tab by mouth 3 times per day 84 each 11 lidocaine (LIDODERM) 5 % patch Apply 2 patches topically 1 (one) time each day. Apply to painful area 12 hours per day, remove for 12 hours. 56 each 11 lidocaine (XYLOCAINE) 5 % ointment Apply topically 1 (one) time each day. Home ( Home) 35.44 g 0 linaCLOtide (LINZESS) 290 mcg capsule Take 1 capsule (290 mcg total) by mouth 1 (one) time each day. 28 each 11 LORazepam (Ativan) 0.5 mg tablet Take 1 tablet (0.5 mg total) by mouth 1 (one) time each day if needed for anxiety (panic attack) for up to 10 days. Max Daily Amount: 0.5 mg 10 tablet 0 melatonin 10 mg tablet 1 tab by mouth once daily at bedtime prn sleep nitroglycerin (NITROSTAT) 0.[address] 1 tablet (0.4 mg total) under the tongue every 5 (five) minutes if needed. oxyCODONE (ROXICODONE) 10 mg immediate release tablet Take 1 tablet (10 mg total) by mouth 2 (two) times a day if needed for severe pain for up to 7 days. Max Daily Amount: 20 mg 14 tablet 0 rosuvastatin (CRESTOR) 40 mg tablet Take 1 tablet (40 mg total) by mouth 1 (one) time each day. sacubitriL-valsartan (ENTRESTO) 24-26 mg per tablet Take 1 tablet by mouth 2 (two) times a day. 56 each 11 semaglutide (Ozempic) 1 mg/dose (4 mg/3 mL) injection pen 1 mg subcutaneously every week senna (SENOKOT) 8.6 mg tablet Take 1 tablet (8.6 mg total) by mouth as needed. spironolactone (Aldactone) 50 mg tablet Take 1 tablet (50 mg total) by mouth 1 (one) time each day.28 each 11 tamsulosin (FLOMAX) 0.4 mg 24 hr capsule Take 1 capsule (0.4 mg total) by mouth 1 (one) time each day. Capsules should be taken 30 minutes following the same meal each day. 28 each 11 topiramate (TOPAMAX) 50 mg tablet Take 2 tablets (100 mg total) by mouth 1 (one) time each day in the evening. 28 each 11 urea (CARMOL) 20 % cream if needed. 1 application to (affected) skin 2 times per day [DISCONTINUED] DULoxetine (CYMBALTA) [address] capsule Take 1 capsule (60 mg total) by mouth 1 (one)time each day. Do not crush or chew. (Patient not taking: Reported on 12/11/2024) 28 each 11 [DISCONTINUED] metOLazone (ZAROXOLYN) 5 mg tablet Take 1 tablet (5 mg total) by mouth 1 (one) time each day in the morning. 30 each 1 [DISCONTINUED] spironolactone (Aldactone) 25 mg tablet Take 1 tablet (25 mg total) by mouth 1 (one)time each day. 28 each 11 OBJECTIVE Vitals Visit Vitals BP 104/75 (BP Location: Right arm;Upper) Pulse 65 Temp 36.5 ??C (97.7 ??F) (Oral) Resp 19 Temp (24hrs), Av.4 ??C (97.6 ??F), Min:36.4 ??C (97.5 ??F), Max:36.5 ??C (97.7 ??F) Body mass index is 42.86 kg/m??. No results found for: PTWT , PTHT Physical Examination Physical Exam General: 64-year-old gentleman sitting upright in the stretcher, in no acute distress, appears anxious Skin: Appropriate tone for ethnicity, warm, dry. There is a wound on the left mid tibia with purulent material draining but no increased warmth or erythema. HEENT: normocephalic, atraumatic, sclera nonicteric, pupils are somewhat pinpoint and sluggish to react EOMI, tongue protrudes midline, moist mucous membranes, uvula midline, Pulmonary: Lungs clear to auscultation in all lung gomez bilaterally. No wheezes rales or rhonchi appreciated, no respiratory distress, no accessory muscle use. Cardiac: S1 and S2 appreciated, no murmurs, rubs or gallops, 2+ peripheral edema Abdomen: Firm non-tender, nondistended, no guarding or rebound tenderness appreciated. Bowel soundsnormoactive. MSK: Full range of motion in upper and lower extremities with strength 5/5 and equal bilaterally dorsiflexion, plantarflexion, handgrip strength. Neuro: Alert and oriented x4. Cranial nerves 2-12 intact. No focal neurological deficits appreciated. No facial droop. Psych: Normal affect. ECG: Was ECG Performed? Yes . Sinus Rhythm? Yes. Signs of acute ischemia? No Further Interpretation: 61 bpm NSR, low voltage qrs, qtc 438 LAB RESULTS (most recent) HEMATOLOGY Lab Results Component Value Date WBC 9.9 12/11/2024 HGB 15.9 12/11/2024 HCT 50.5 12/11/2024 MCV 85.4 12/11/2024 PLT 182 12/11/2024 CHEMISTRY Lab Results Component Value Date GLUCOSE 169 (H) 12/11/2024 NA 128 (L) 12/11/2024 K 2.8 (LL) 12/11/2024 CO2 37 (H) 12/11/2024 CL 82 (L) 12/11/2024 BUN 29 (H) 12/11/2024 CREATININE 1.50 (H) 12/11/2024 EGFR 51 (L) 12/11/2024 CALCIUM 9.5 12/11/2024 MG 2.4 12/11/2024 ANIONGAP 9 12/11/[address] Head wo Contrast Final Result 1. No acute intracranial process. 2. Moderate/advanced changes of chronic microvascular ischemic disease with age related global parenchymal volume loss. 3. Mucosal thickening of the ethmoid sinuses. This document has been electronically signed by: Geoff Belcher DO on 12/12/2024 03:32:31 XR Chest 1 View (Results Pending) ASSESSMENT & PLAN Hypokalemia -vitals are stable - labs notable for sodium of 128, potassium of 2.8, glucose of 169 BUN of 29, creatinine of 1.5, lactic of 1.4, BNP of 79, troponin of 30, 31, CRP of 0.5, white blood cell count of 9.9, alcohol levelof less than 3, drug screen positive for cocaine and marijuana. -Brain CT showed no acute intracranial process, moderate advanced changes of chronic microvascular ischemic disease with age-related global parenchymal volume loss, mucosal thickening of the ethmoid sinuses. -Chest x-ray pending formal read but appears to show blunting of the costophrenic angles bilaterally as well as mild pulmonary edema pattern. -Patient was given 1 L normal saline bolus, Ativan, potassium p.o. and IV in the ED. -will recheck labs -Blood cultures ordered and pending. -am labs Altered mental status -it was reported that patient was confused earlier this evening -brain ct negative, currently patient is aox3, possibly related to drug intoxication (+ for cocaineand marijuana) Hyponatremia -initial sodium 128 from 138 on the 16th -will check urine osmolality, serum osmolality, possible hypervolemic component -was given 1L of ns will recheck overnight, avoid overcorrection of greater than 8 meq in 24hrs Elevated cr -baseline cr appears around 1.2-1.29 today is 1.5, suspect cardiorenal -he was given 1L of ns in the ed, will recheck cr in the morning HFrEF -continue with bumex, entresto, spironolactone -ef 30-35% from echo 12/11 -monitor I&os, daily weight Left lower extremity wound -picture attached in chart, no noted erythema or increased warmth -wound nurse consult placed Diabetes mellitus type II -hold ozempic and farxiga -low dose sliding scale -poc ac CAD -continue carvedilol, aspirin, statin Anxiety -continue low dose ativan prn Chronic pain -continue gabapentin Tobacco use -continues to smoke 5 cigarettes a day -nicotine patch ordered Admission checklist [x] Code status: Full Code - Default [x] VTE Prophylaxis: Lovenox subq [x] Diet order on admission: Dietary Orders (From admission, onward) Start Ordered 12/12/[address] [facility]; Cardiac; Cardiac, Sodium 2 gm Restriction, No Added Salt Diet effective now Question Answer Comment Location [facility] Diet Type (req) Cardiac Diet Type (cardiac) Cardiac Diet Type (cardiac) Sodium 2 gm Restriction Diet Type (cardiac) No Added Salt 12/12/24 0501 [x] Lines, tubes, drains: IV access [x] Medication reconciliation Health Care proxy with Phone number is his sister Harish, Cosigned by Janine Ortiz MD at 12/14/2024 5:33 AM EDT Associated attestation - Janine Ortiz MD - 12/14/2024 5:33 AM EDT This is a split/shared visit with PRATIMA Chan. I personally performed the medical decision making (MDM) for the care of this patient on 12/12/2024 as documented below 64 year-old male with history of coronary artery disease status post CABG, heart failure with reduced ejection fraction 30-35% status post AICD placement, hypertension, hyperlipidemia, polysubstance abuse presents with hypokalemia and complaints of anxiety. After discussion with the ER provider the patient will be placed in observation. The patient reportedly saw his PCP with the [place] [facility] earlier today. He was given a dose of lorazepam, feltimproved, and went home. He now returns to the Emergency Department reporting a return of his anxiety asking for additional lorazepam. Laboratory workup revealed hyponatremia and hypokalemia. CT of the head was performed as the patient was reported to be acting erratically; no acute intracranial abnormalities were noted. Urine toxicology is positive for cocaine and cannabis. He will be fluid resuscitated as he does not appear to be volume depleted. Due to his heart failure we will monitor him cl osely for volume overload. His potassium is being replaced parenterally as patient is reporting nausea. His dry behavior and anxiety may be secondary to cocaine/THC intoxication. He has been given a dose of lorazepam and will follow- up as behavioral status expectantly. Management of additional chronic medical problems as below. Janine Ortiz MD 12/14/24 5:17 AM EDT documented in this encounter Plan of Treatment Upcoming Encounters Date Type Department Care Team (Late st Contact Info) Description 12/16/2024 9:30 AM EDT [facility] [address] [place] [phone] Merlin Forbes 12/16/2024 11:00 AM EDT Office Visit [facility] [address] [place] [phone] Deloris Tobias, JOHNATHAN [address] [address] 12/16/2024 6:00 PM EDT [facility] [address] [place] [phone] My Phillips 12/17/2024 7:00 AM EDT Clinical Support [facility] [address] [place] [phone] Nkechi Grajeda RN 12/17/2024 9:30 AM EDT [facility] / [facility] [address] [place] [phone] Merlin Forbes 12/17/2024 11:00 AM EDT Treatment [facility] [address] [place] [phone] Janine Ling OT 12/17/2024 6:00 PM EDT [facility] / [facility] Visit [facility] [address] [place] [phone] My Phillips 12/18/2024 10:00 AM EDT [facility] / [facility] Visit [facility] [address] [place] [phone] Merlin Forbes 12/18/2024 6:00 PM EDT [facility] / [facility] Visit [facility] [address] [place] [phone] My Phillips 12/19/2024 10:30 AM EDT [facility] / [facility] Home Visit [facility] [address] [place] [phone] Merlin Forbes 12/19/2024 6:00 PM EDT [facility] / [facility] Visit [facility] [address] [place] [phone] My Phillips 12/20/2024 9:00 AM EDT Appointment [facility] Ultrasound [address] [place] [phone] 12/20/2024 9:30 AM EDT [facility] / [facility] [address] [place] [phone] Merlin Forbes 12/20/2024 6:00 PM EDT [facility] / [facility] Visit [facility] [address] [place] [phone] My Phillips 12/21/2024 8:30 AM EDT [facility] / [facility] [address] [place] [phone] Anabelle Valdez 12/22/2024 8:30 AM EDT [facility] / [facility] [address] [place] [phone] Anabelle Valdez 12/23/2024 9:30 AM EDT [facility] / [facility] Visit [facility] [address] [place] [phone] Merlin Forbes 12/23/2024 6:00 PM EDT [facility] / [facility] [address] [place] [phone] My Phillips 12/24/2024 7:00 AM EDT Clinical Support [facility] [address] [place] [phone] Nkechi Grajeda RN 12/24/2024 9:30 AM EDT [facility] / [facility] [address] [place] [phone] Merlin Forbes 12/24/2024 6:00 PM EDT [facility] / [facility] Visit [facility] [address] [place] [phone] My Phillips 12/25/2024 10:00 AM EDT [facility] / [facility] Home Visit [facility] [address] [place] [phone] Merlin Forbes 12/25/2024 6:00 PM EDT [facility] / [facility] Visit [facility] [address] [place] [phone] yM Phillips 12/26/2024 10:40 AM EDT Clinical Support [facility] [address] [place] [phone] 12/26/2024 6:00 PM EDT [facility] / [facility] Home Visit [facility] [address] [place] [phone] My Phillips 12/27/2024 9:30 AM EDT [facility] / [facility] Home Visit [facility] [address] [place] [phone] Merlin Forbes 12/27/2024 6:00 PM EDT [facility] / [facility] Home Visit [facility] [address] [place] [phone] My Phillips 12/30/2024 9:30 AM EDT [facility] / [facility] Visit [facility] [address] [place] [phone] Merlin Forbes 12/30/2024 6:00 PM EDT [facility] / [facility] Visit [facility] [address] [place] [phone] My Phillips 12/31/2024 7:00 AM EDT Clinical Support [facility] [address] [place] [phone] Nkechi Grajeda RN 12/31/2024 9:30 AM EDT [facility] / [facility] [address] [place] [phone] Merlin Forbes 12/31/2024 10:00 AM EDT Ancillary Procedure [facility] [address] [place] [phone] 12/31/2024 6:00 PM EDT [facility] / [facility] Visit [facility] [address] [place] [phone] My Phillips 01/01/2025 10:00 AM EDT [facility] / [facility] Home Visit [facility] [address] [place] [phone] Merlin Forbes 01/01/2025 6:00 PM EDT [facility] / [facility] Home Visit [facility] [address] [place] [phone] My Phillips 01/02/2025 10:30 AM EDT [facility] / [facility] Visit [facility] [address] [place] [phone] Merlin Forbes 01/02/2025 3:00 PM EDT Clinical Support [facility] [address] [place] [phone] 01/02/2025 6:00 PM EDT [facility] / [facility] Home Visit [facility] [address] [place] [phone] My Phillips 01/03/2025 9:30 AM EDT [facility] / P[facility] Home Visit [facility] [address] [place] [phone] Merlin Forbes 01/03/2025 6:00 PM EDT [facility] Home [facility] / P[facility] Home Visit [facility] [address] [place] [phone] My Phillips 01/04/2025 8:30 AM EDT [facility] / [facility] Home Visit [facility] [address] [place] [phone] Anabelle Valdez 01/05/2025 8:30 AM EDT [facility] / [facility] Home Visit [facility] [address] [place] [phone] Anabelle Valdez 01/06/2025 9:30 AM EDT [facility] / [facility] Home Visit [facility] [address] [place] [phone] Merlin Forbes 01/06/2025 6:00 PM EDT [facility] / [facility] Visit [facility] [address] [place] [phone] My Phillips 01/07/2025 7:00 AM EDT Clinical Support [facility] [address] [place] [phone] Nkechi Grajeda RN 01/07/2025 8:15 AM EDT Clinical Support [facility] [address] [place] [phone] Nkechi Grajeda RN 01/07/2025 9:30 AM EDT [facility] / [facility] Home Visit [facility] [address] [place] [phone] Merlin Forbes 01/07/2025 6:00 PM EDT [facility] / [facility] Visit [facility] [address] [place] [phone] My Phillips 01/08/2025 10:00 AM EDT [facility] / [facility] Visit [facility] [address] [place] [phone] Merlin Forbes 01/08/2025 6:00 PM EDT [facility] / [facility] Visit [facility] [address] [place] [phone] My Phillips 01/09/2025 10:30 AM EDT [facility] / [facility] Visit [facility] [address] [place] [phone] Merlin Forbes 01/09/2025 6:00 PM EDT [facility] / [facility] Visit [facility] [address] [place] [phone] My Phillips 01/10/2025 9:30 AM EDT [facility] / [facility] Home Visit [facility] [address] [place] [phone] Merlin Forbes 01/10/2025 10:00 AM EDT Clinical Support [facility] [address] [place] [phone] 01/10/2025 6:00 PM EDT [facility] [address] [place] [phone] My Phillips 01/13/2025 9:30 AM EDT [facility] [address] [place] [address] Merlin Forbes 01/13/2025 6:00 PM EDT [facility] / [facility] Visit [facility] [address] [place] [address] My Phillips 01/14/2025 7:00 AM EDT Clinical Support [facility] [address] [place] [phone] Nkechi Grajeda RN 01/14/2025 9:30 AM EDT [facility] / [facility] [address] [place] [phone] Merlin Forbes 01/14/2025 6:00 PM EDT [facility] / [facility] Home Visit [facility] [address] [place] [phone] My Phillips 01/15/2025 10:00 AM EDT [facility] / [facility] Home Visit [facility] [address] [place] [address] Merlin Forbes 01/15/2025 6:00 PM EDT [facility] / [facility] Home Visit [facility] [address] [place] [address] My Phillips 01/16/2025 10:30 AM EDT [facility] / [facility] Home Visit [facility] [address] [place] [address] Merlin Forbes 01/16/2025 6:00 PM EDT [facility] / [facility] Home Visit [facility] [address] [place] [address] My Phillips 01/17/2025 9:30 AM EDT [facility] / [facility] Home Visit [facility] [address] [place] [address] Merlin Forbes 01/17/2025 6:00 PM EDT [facility] / [facility] Home Visit [facility] [address] [place] [address] My Phillips 01/18/2025 8:30 AM EDT [facility] / [facility] Home Visit [facility] [address] [place] [phone] Anabelle Valdez 01/19/2025 8:30 AM EST [facility] / [facility] Home Visit [facility] [address] [place] [phone] Anabelle Valdez 01/20/2025 9:30 AM EST [facility] / [facility] Home Visit [facility] [address] [place] [phone] Merlin Forbes 01/20/2025 6:00 PM EST [facility] / [facility] Home Visit [facility] [address] [place] [phone] My Phillips 01/21/2025 7:00 AM EST Clinical Support [facility] [address] [place] [phone] Nkechi Grajeda RN 01/21/2025 9:30 AM EST [facility] / [facility] Home Visit [facility] [address] [place] [phone] Merlin Forbes 01/21/2025 10:45 AM EST Clinical Support [facility]HONEY [place] [address] [place] [address] 01/21/2025 6:00 PM EST [facility] / [facility] [address] [place] [address] My Phillips 01/22/2025 10:00 AM EST [facility] / [facility] Home Visit [facility] [address] [place] [address] Merlin Forbes 01/22/2025 6:00 PM EST [facility] / [facility] Home Visit [facility] [address] [place] [address] My Phillips 01/23/2025 10:30 AM EST [facility] / [facility] Home Visit [facility] [address] [place] [phone] Merlin Forbes 01/23/2025 6:00 PM EST [facility] / [facility] Home Visit [facility] [address] [place] [phone] My Phillips 01/24/2025 9:30 AM EST [facility] / [facility] Home Visit [facility] [address] [place] [address] Merlin Forbes 01/24/2025 6:00 PM EST [facility] / [facility] Home Visit [facility] [address] [place] [phone] My Phillips 01/27/2025 9:30 AM EST [facility] / [facility] Home Visit [facility] [address] [place] [address] Merlin Forbes 01/27/2025 6:00 PM EST [facility] / P[facility] Home Visit [facility] [address] [place] [phone] My Phillips 01/28/2025 7:00 AM EST Clinical Support [facility] [place] [facility] [address] [place] [phone] Nkechi Grajeda RN 01/28/2025 9:30 AM EST [facility] / [facility] Home Visit [facility] [address] [place] [phone] Merlin Forbes 01/28/2025 6:00 PM EST [facility] / [facility] Home Visit [facility] [address] [place] [phone] My Phillips 01/29/2025 10:00 AM EST [facility] / [facility] Home Visit [facility] [address] [place] [phone] Merlin Forbes 01/29/2025 6:00 PM EST [facility] / [facility] Home Visit [facility] [address] [place] [phone] My Phillips 01/30/2025 10:30 AM EST [facility] / [facility] Home Visit [facility] [address] [place] [phone] Merlin Forbes 01/30/2025 6:00 PM EST [facility] / [facility] Home Visit [facility] [address] [place] [phone] My Phillips 01/31/2025 9:30 AM EST [facility] / [facility] Home Visit [facility] [address] [place] [phone] Merlin Forbes 01/31/2025 11:00 AM EST P[facility] External Visit [facility]HONEY [place] [address] [place] [address] 01/31/2025 6:00 PM EST [facility] / [facility] Home Visit [facility] [address] [place] [phone] My Phillips 02/01/2025 8:30 AM EST [facility] / [facility] Home Visit [facility] [address] [place] [phone] Anabelle Valdez 02/02/2025 8:30 AM EST [facility] / [facility] Home Visit [facility] [address] [place] [phone] Anabelle Valdez 02/03/2025 9:30 AM EST [facility] / [facility] Home Visit [facility] [address] [place] [phone] Merlin Forbes 02/03/2025 6:00 PM EST [facility] / [facility] Home Visit [facility] [address] [place] [phone] My Phillips 02/04/2025 7:00 AM EST Clinical Support [facility] [place] [facility] [address] [place] [phone] Nkechi Grajeda, EDD 02/04/2025 8:15 AM EST Clinical Support [facility] [place] [facility] [address] [place] [phone] Nkechi Grajeda, EDD 02/04/2025 9:30 AM EST [facility] / [facility] Home Visit [facility] [address] [place] [phone] Merlin Forbes 02/04/2025 6:00 PM EST [facility] / [facility] Home Visit [facility] [address] [place] [phone] My Phillips 02/05/2025 10:00 AM EST [facility] / [facility] Home Visit [facility] [address] [place] [phone] Merlin Forbes 02/05/2025 6:00 PM EST [facility] / [facility] Home Visit [facility] [address] [place] [phone] My Phillips 02/06/2025 10:30 AM EST [facility] / P[facility] Home Visit [facility] [address] [place] [phone] Merlin Forbes 02/06/2025 6:00 PM EST [facility] / [facility] Home Visit [facility] [address] [place] [phone] My Phillips 02/07/2025 9:30 AM EST [facility] / [facility] Home Visit [facility] [address] [place] [phone] Merlin Forbes 02/07/2025 6:00 PM EST [facility] / [facility] Home Visit [facility] [address] [place] [phone] My Phillips 02/10/2025 9:30 AM EST [facility] / [facility] Home Visit [facility] [address] [place] [phone] Merlin Forbes 02/10/2025 6:00 PM EST [facility] / [facility] Home Visit [facility] [address] [place] [phone] My Phillips 02/11/2025 7:00 AM EST Clinical Support [facility] [place] [facility] [address] [place] [phone] Nkechi Grajeda, EDD 02/11/2025 9:30 AM EST [facility] / [facility] Home Visit [facility] [address] [place] [phone] Merlin Forbes 02/11/2025 6:00 PM EST [facility] / P[facility] Home Visit [facility] [address] [place] [phone] My Phillips 02/12/2025 10:00 AM EST [facility] / [facility] Home Visit [facility] [address] [place] [phone] Merlin Forbes 02/12/2025 6:00 PM EST [facility] / [facility] Home Visit [facility] [address] [place] [phone] My Phillips 02/13/2025 10:30 AM EST [facility] / P[facility] Home Visit [facility] [address] [place] [phone] Merlin Forbes 02/13/2025 6:00 PM EST [facility] / [facility] Home Visit [facility] [address] [place] [phone] My Phillips 02/18/2025 7:00 AM EST Clinical Support [facility] [place] [facility] [address] [place] [phone] Nkechi Grajeda, EDD 02/25/2025 7:00 AM EST Clinical Support [facility] [place] [facility] [address] [place] [phone] Nkechi Grajeda, EDD 02/27/2025 10:40 AM EST Clinical Support [facility] [place] [address] [place] [phone] 03/04/2025 7:00 AM EST Clinical Support [facility] [place] [facility] [address] [phone] Nkechi Grajeda, EDD 03/04/2025 8:15 AM EST Clinical Support [facility] [place] [facility] [address] [phone] Nkechi Grajeda, EDD 03/11/2025 7:00 AM EST Clinical Support [facility] [place] [facility] [address] [phone] Nkechi Grajeda, EDD 03/18/2025 7:00 AM EST Clinical Support [facility] [place] [address] [phone] Nkechi Grajeda, EDD 03/25/2025 7:00 AM EST Clinical Support [facility] [place] [facility] [address] [phone] Nkechi Grajeda, EDD 04/01/2025 7:00 AM EST Clinical Support [facility] [place] [facility] [address] [address] Nkechi Grajeda, EDD 04/01/2025 8:15 AM EST Clinical Support [facility] [place] [facility] [address] [phone] Nkechi Grajeda, EDD 04/08/2025 7:00 AM EST Clinical Support [facility] [place] [facility] [address] [phone] Nkechi Grajeda, EDD 04/14/2025 9:25 AM EST Office Visit [facility] [address] [facility] [address] [place] [phone] Dillon Mendosa MD [address] [place] [address] [place] [phone] 04/15/2025 7:00 AM EST Clinical Support [facility] [place] [facility] [address] [place] [phone] Nkechi Grajeda, EDD 04/22/2025 7:00 AM EST Clinical Support [facility] [place] [facility] [address] [place] [phone] Nkechi Grajeda, EDD 04/29/2025 7:00 AM EST Clinical Support [facility] [place] [facility] [address] [place] [phone] Nkechi Grajeda, EDD 04/29/2025 8:15 AM EST Clinical Support [facility] [place] [facility] [address] [place] [phone] Nkechi Grajeda, EDD 05/06/2025 7:00 AM EST Clinical Support [facility] [place] [facility] [address] [place] [phone] Nkechi Grajeda, EDD 05/13/2025 7:00 AM EST Clinical Support [facility] [place] [facility] [address] [place] [phone] Nkechi Grajeda, EDD 05/20/2025 7:00 AM EST Clinical Support [facility] [place] [facility] [address] [place] [phone] Nkechi Grajeda, EDD 05/27/2025 7:00 AM EDT Clinical Support [facility] [place] [facility] [address] [place] [phone] Nkechi Grajeda RN 05/27/2025 8:15 AM EDT Clinical Support [facility] [place] [facility] [address] [place] [phone] Nkechi Grajeda, EDD 06/03/2025 7:00 AM EDT Clinical Support [facility] [place] [facility] [address] [place] [phone] Nkechi Grajeda RN 06/10/2025 7:00 AM EDT Clinical Support [facility] [place] [facility] [address] [place] [phone] Nkechi Grajeda, EDD 06/17/2025 7:00 AM EDT Clinical Support [facility] [place] [facility] [address] [place] [phone] Nkechi Grajeda, EDD 06/24/2025 7:00 AM EDT Clinical Support [facility] [place] [facility] [address] [place] [phone] Nkechi Grajeda, EDD 06/24/2025 8:15 AM EDT Clinical Support [facility] [place] [facility] [address] [place] [phone] Nkechi Grajeda, EDD 07/01/2025 7:00 AM EDT Clinical Support [facility] [place] [facility] [address] [phone] Nkechi Grajeda, EDD 07/08/2025 7:00 AM EDT Clinical Support [facility] [place] [facility] [address] [place] [phone] Nkechi Grajeda, EDD 07/15/2025 7:00 AM EDT Clinical Support [facility] [place] [facility] [address] [place] [phone] Nkechi Grajeda, EDD 07/22/2025 8:15 AM EDT Clinical Support [facility] [place] [facility] [address] [place] [phone] Nkechi Grajeda, EDD 08/19/2025 8:15 AM EDT Clinical Support [facility] [place] [facility] [address] [place] [phone] Nkechi Grajeda, RN 09/16/2025 8:15 AM EDT Clinical Support [facility] [place] [facility] [address] [place] [phone] Nkechi Grajeda, EDD 10/14/2025 8:15 AM EDT Clinical Support [address] [phone] Nkechi Grajeda RN 11/11/2025 8:15 AM EDT [facility] [address] [phone] Nkechi Grajeda RN 12/09/2025 8:15 AM EDT [facility] [address] [phone] Nkechi Grajeda RN Pending Results Name Type Priority Associated Diagnoses Date /Time Blood Culture, Peripheral #1 Microbiology STAT 12/12/2024 2:48 AM EDT Blood Culture, Peripheral #2 Microbiology STAT 12/12/2024 2:48 AM EDT Scheduled Referrals Name Type Priority Associated Diagnoses Order Schedule Ambulatory referral to Home Health Outpatient Referral Routine Hypokalemia Anxiety Acute on chronic combined systolic and diastolic congestive heart failure ([facility] V24, [facility] V28) 1 Occurrences starting 12/13/2024 until 12/13/2025 documented as of this encounter Procedures Procedure Name Priority Date/Time Associated Diagnosis Comments EXTRA TUBES Routine 12/13/2024 6:32 AM EDT LAVENDER - EDTA Routine 12/13/2024 6:32 AM EDT MAGNESIUM Routine 12/13/2024 6:32 AM EDT BASIC METABOLIC PANEL Routine 12/13/2024 6:32 AM EDT ECG ANNOTATED 12/13/2024 POCT GLUCOSE BLOOD Routine 12/12/2024 4: 07 PM EDT XR CHEST 2 VIEWS Routine 12/12/2024 2:11 PM EDT POCT GLUCOSE BLOOD Routine 12/12/2024 11 :45 AM EDT CBC WITH AUTO DIFFERENTIAL Routine 12/12/2024 5:58 AM EDT CBC AND DIFFERENTIAL Routine 12/12/2024 5:58 AM EDT OSMOLALITY STAT Add-on 12/12/2024 5:58 AM EDT BASIC METABOLIC PANEL Routine 12/12/2024 5:58 AM EDT XR CHEST 1 VIEW STAT 12/12/2024 4:[address] HEAD WO CONTRAST STAT 12/12/2024 2 :55 AM EDT LACTATE, WITH REFLEX STAT 12/12/2024 2:48 AM EDT DRUG ABUSE SCREEN 8A PANEL, URINE Routine 12/12/2024 2:48 AM EDT SODIUM, URINE, RANDOM STAT Add-on 12/12/2024 2:48 AM EDT OSMOLALITY, URINE Add-On 12/12/2024 2:4 8 AM EDT CULTURE BLOOD STAT 12/12/2024 2:48 AM EDT CULTURE BLOOD STAT 12/12/2024 2:48 AM EDT TROPONIN I HIGH SENSITIVITY Timed 12/12/2024 1:45 AM EDT TROPONIN I HIGH SENSITIVITY Timed 12/11/2024 10:52 PM EDT CBC WITH AUTO DIFFERENTIAL STAT 12/11/2024 10:52 PM EDT CBC AND DIFFERENTIAL STAT 12/11/2024 10:52 PM EDT C-REACTIVE PROTEIN Add-On 12/11/2024 10 :52 PM EDT OSMOLALITY STAT Add-on 12/11/2024 10:52 PM EDT B-TYPE NATRIURETIC PEPTIDE STAT 12/11/2024 10:52 PM EDT MAGNESIUM STAT 12/11/2024 10:52 PM EDT LIPASE STAT 12/11/2024 10:52 PM EDT HEMOGLOBIN A1C Add-On 12/11/2024 10:52 PM EDT ETHANOL STAT Add-on 12/11/2024 10:52 PM EDT COMPREHENSIVE METABOLIC PANEL STAT 12/11/2024 10:52 PM EDT ECG 12-LEAD STAT 12/11/2024 10:47 PM EDT documented in this encounter Results * Lavender tube (12/13/2024 6:32 AM EDT) Extra Tube Hold for add-ons. 12/13/2024 9:[address] [facility] Comment:Auto resulted. Blood Venous blood specimen / Unknown 12/13/2024 6:32 AM EDT 12/13/2024 7:34 AM EDT Jaren Bentley MD LAB BLOOD ORDERABLE S Final Result [facility] [address] [place] [address], [place] [phone] * Magnesium (12/13/2024 6:32 AM EDT) Magnesium 2.6 1.9 - 2.6 mg/dL LAB CHEMISTRY METHOD 12/13/2024 8:[address] [facility] Blood Venous blood specimen / Unknown Venipuncture / Unknown 12/13/2024 6:32 AM EDT 12/13/2024 7:32 AM EDT Radu ANDUJAR LAB BLOOD ORDERABLES Merle l Result [facility] [address] [place] [address], * (ABNORMAL) Basic metabolic panel (12/13/2024 6:32 AM EDT) Sodium 133 133 - 145 mmol/L LAB CHEMISTRY METHOD 12/13/2024 8:[address] [facility] Potassium 3.4(L) 3.5 - 5.5 mmol/L LAB CHEMISTRY METHOD 12/13/2024 8:[address] [facility] Chloride 89(L) 96 - 110 mmol/L LAB CHEMISTRY METHOD 12/13/2024 8:24 AM [facility] CO2 37(H) 21 - 32 mmol/L LAB CHEMISTRY METHOD 12/13/2024 8:24 AM [facility] Anion Gap 7 3 - 11 LAB CHEMISTRY METHOD 12/13/2024 8:24 AM [facility] Glucose 169(H) 70 - 100 mg/dL LAB CHEMISTRY METHOD 12/13/2024 8:24 AM [facility] BUN 33(H) 5 - 25 mg/dL LAB CHEMISTRY METHOD 12/13/2024 8:24 AM [facility] Creatinine 1.58(H) 0.70 - 1.30 mg/dL LAB CHEMISTRY METHOD 12/13/2024 8:24 AM [facility] eGFR 48(L) >=60 mL/min/1. 73m2 LAB CHEMISTRY METHOD 12/13/2024 8:24 AM [facility] Comment:Calculation based on the Chronic Kidney Disease Epidemiology Collaboration (CKD-EPI) equation refit without adjustment for race. BUN/Creatinine Ratio 20.9 LAB CHEMISTRY METHOD 12/13/2024 8:24 AM [facility] Calcium 9.7 8.5 - 10.5 mg/dL LAB CHEMISTRY METHOD 12/13/2024 8:[address] [facility] Blood Venous blood specimen / Unknown Venipuncture / Unknown 12/13/2024 6:32 AM EDT 12/13/2024 7:32 AM EDT Radu ANDUJAR LAB BLOOD ORDERABLES Merle l Result Performing Organization Address [facility]/ZIP Co de Phone Number [facility] [address] [place] [address], [place] [phone] * ECG-Annotated (12/13/2024) Provider Onbase MD ECG ORDERABLES Final Result * (ABNORMAL) POCT Glucose, blood (12/12/2024 4:07 PM EDT) [facility] Glucose POCT 247(H) 70 - 100 mg/dL 12/12/2024 4:[address] [facility] Blood Capillary blood specimen / Unknown 12/12/2024 4:07 PM EDT 12/12/2024 4:09 PM EDT Jaren Bentley MD LAB POINT O F CARE TEST DOCKED DEVICE UNSOLICITED RESULTS Final Result Performing Organization Address [facility] Co de Phone Number [facility] [address] [place] [address], [place] [phone] * XR Chest 2 Views (12/12/2024 2:11 PM EDT) Anatomical Region Laterality Modality Body Radiographic Anna ging 12/13/2024 11:3 9 AM EDT Impressions 12/13/2024 11:42 AM EDT No acute pulmonary disease. The area of atelectasis and/or infiltrate in the left lower lobe suspected on the prior study 9 hours 29 minutes earlier has resolved. Code 53305 -------- FINAL REPORT -------- Dictated By: Donavon Davis Dictated Date: 12/13/2024 11:39 ET Assigned Physician: Donavon Davis Reviewed and Electronically Signed By: Donavon Davis Signed Date: 12/13/2024 11:42 ET Workstation ID: [id number] Transcribed By: Self Edit Transcribed Date: 12/13/2024 11:39 ET Narrative 12/13/2024 11:42 AM EDT HISTORY: The patient is a 64-year-old male with possible increased density in the left lower lobe on prior chest radiograph performed earlier the same day, presenting for follow-up. FINDINGS: PA and lateral radiographs of the chest at 14 00 hours again demonstrate the presence of sternotomy sutures as also seen on the prior study earlier the same day at 0431 hours. A single chamber cardiac pacemaker is again seen with the lead appearing intact and in good position. The cardiac silhouette remains borderline enlarged. The aortic knob is calcified. The area of suspected and/or infiltrate in the left lower lung seen on prior study has resolved. The lungs are otherwise clear. Procedure Note Donavon Davis MD - 12/13/2024 HISTORY: The patient is a 64-year-old male with possible increased densityin the left lower lobe on prior chest radiograph performed earlier the, presenting for follow-up. FINDINGS: PA and lateral radiographs of the chest at 14 00 hours againdemonstrate the presence of sternotomy sutures as also seen on the priorstudy earlier the same day at 0431 hours. A single chamber cardiacpacemaker is again seen with the lead appearing intact and in goodposition. The cardiac silhouette remains borderline enlarged. The aorticknob is calcified. The area of suspected and/or infiltrate in the leftlower lung seen on prior study has resolved. The lungs are otherwiseclear. IMPRESSION: No acute pulmonary disease. The area of atelectasis and/or infiltrate inthe left lower lobe suspected on the prior study 9 hours 29 minutesearlier has resolved. Code 10184 -------- FINAL REPORT -------- Dictated By: Donavon Davis Dictated Date: 12/13/2024 11:39 ET Assigned Physician: Donavon Davis Reviewed and Electronically Signed By: Donavon Davis Signed Date: 12/13/2024 11:42 ET Workstation ID: [id number] Transcribed By: Self Edit Transcribed Date: 12/13/2024 11:39 ET Radu ANDUJAR IMG XR PROCEDURES Final R esult * (ABNORMAL) POCT Glucose, blood (12/12/2024 11:45 AM EDT) [facility] Glucose POCT 309(H) 70 - 100 mg/dL 12/12/2024 11:[address] [facility] Blood Capillary blood specimen / Unknown 12/12/2024 11:45 AM EDT 12/12/2024 11:48 AM EDT Jaren Bentley MD LAB POINT O F CARE TEST DOCKED DEVICE UNSOLICITED RESULTS Final Result Performing Organization Address City/[facility]/ZIP Co de Phone Number [facility] [address] [place] [address], [place] [phone] * Osmolality (12/12/2024 5:58 AM EDT) [facility] Osmolality Bharathi [phone] - 300 mOsm/kg LAB CHEMISTRY METHOD 12/12/2024 9:[address] [facility] Blood Venous blood specimen / Unknown Venipuncture / Unknown 12/12/2024 5:58 AM EDT 12/12/2024 6:17 AM EDT Radu ANDUJAR LAB BLOOD ORDERABLES Merle l Result Performing Organization Address City/[facility]/ZIP Co de Phone Number [facility] [address] [place] [address], [place] [phone] * (ABNORMAL) CBC auto differential (12/12/2024 5:58 AM EDT) [facility] WBC 9.2 4.8 - 10.8 K/[facility] HEMETOLOGY METHOD 12/12/2024 6:34 AM [facility] RBC 6.00(H) 4.50 - 5.50 M/mcL LAB HEMETOLOGY METHOD 12/12/2024 6:34 AM [facility] Hemoglobin 16.2 13.5 - 17.5 g/dL LAB HEMETOLOGY METHOD 12/12/2024 6:34 AM [facility] Hematocrit 50.8 42.0 - 54.0 % LAB HEMETOLOGY METHOD 12/12/2024 6:34 AM [facility] MCV 84.2 79.0 - 98.0 FL LAB HEMETOLOGY METHOD 12/12/2024 6:34 AM [facility] MCH 26.9(L) 27.0 - 32.0 pcg LAB HEMETOLOGY METHOD 12/12/2024 6:34 AM [facility] MCHC 31.9(L) 32.0 - 37.0 g/dL LAB HEMETOLOGY METHOD 12/12/2024 6:34 AM [facility] RDW 13.8 11.0 - 15.0 % LAB HEMETOLOGY METHOD 12/12/2024 6:34 AM [facility] Platelets 165 130 - 400 K/mcL LAB HEMETOLOGY METHOD 12/12/2024 6:34 AM [facility] MPV 10.6 7.0 - 11.0 FL LAB HEMETOLOGY METHOD 12/12/2024 6:34 AM [facility] NRBC 0.0 <1.0 % LAB HEMETOLOGY METHOD 12/12/2024 6:34 AM [facility] NRBC Absolute 0.00 <0.10 K/mcL LAB HEMETOLOGY METHOD 12/12/2024 6:34 AM [facility] Neutrophils Relative 61.4 % LAB HEMETOLOGY METHOD 12/12/2024 6:34 AM [facility] Lymphocytes Relative 26.4 % LAB HEMETOLOGY METHOD 12/12/2024 6:34 AM [facility] Monocytes Relative 10.3 % LAB HEMETOLOGY METHOD 12/12/2024 6:34 AM [facility] Eosinophils Relative 1.2 % LAB HEMETOLOGY METHOD 12/12/2024 6:34 AM [facility] Basophils Relative 0.3 % LAB HEMETOLOGY METHOD 12/12/2024 6:34 AM [facility] Immature Granulocytes Relative 0.4 % LAB HEMETOLOGY METHOD 12/12/2024 6:34 AM [facility] Neutrophils Absolute 5.66 1.50 - 7.00 K/mcL LAB HEMETOLOGY METHOD 12/12/2024 6:34 AM [facility] Lymphocytes Absolute 2.43 1.00 - 5.00 K/mcL LAB HEMETOLOGY METHOD 12/12/2024 6:34 AM [facility] Monocytes Absolute 0.95 0.20 - 1.00 K/mcL LAB HEMETOLOGY METHOD 12/12/2024 6:34 AM [facility] Eosinophils Absolute 0.11 0.00 - 0.50 K/mcL LAB HEMETOLOGY METHOD 12/12/2024 6:34 AM [facility] Basophils Absolute 0.03 0.00 - 0.20 K/mcL LAB HEMETOLOGY METHOD 12/12/2024 6:34 AM [facility] Immature Granulocytes Absolute 0.04(H) 0.00 - 0.03 K/mcL LAB HEMETOLOGY METHOD 12/12/2024 6:34 AM [facility] Blood Venous blood specimen / Unknown Venipuncture / Unknown 12/12/2024 5:58 AM EDT 12/12/2024 6:17 AM EDT us Batsheva ANDUJAR LAB BLOOD ORDERABLES Final Re sult [facility] [address] [place] [address], [place] [phone] * (ABNORMAL) Basic metabolic panel (12/12/2024 5:58 AM EDT) Sodium 129(L) 133 - 145 mmol/L LAB CHEMISTRY METHOD 12/12/2024 8:19 AM [facility] Potassium 3.2(L) 3.5 - 5.5 mmol/L LAB CHEMISTRY METHOD 12/12/2024 8:19 AM [facility] Chloride 87(L) 96 - 110 mmol/L LAB CHEMISTRY METHOD 12/12/2024 8:19 AM [facility] CO2 35(H) 21 - 32 mmol/L LAB CHEMISTRY METHOD 12/12/2024 8:19 AM [facility] Anion Gap 7 3 - 11 LAB CHEMISTRY METHOD 12/12/2024 8:19 AM [facility] Glucose 204(H) 70 - 100 mg/dL LAB CHEMISTRY METHOD 12/12/2024 8:19 AM [facility] BUN 28(H) 5 - 25 mg/dL LAB CHEMISTRY METHOD 12/12/2024 8:19 AM [facility] Creatinine 1.27 0.70 - 1.30 mg/dL LAB CHEMISTRY METHOD 12/12/2024 8:19 AM [facility] eGFR 63 >=60 mL/min/1. 73m2 LAB CHEMISTRY METHOD 12/12/2024 8:19 AM [facility] Comment:Calculation based on the Chronic Kidney Disease Epidemiology Collaboration (CKD-EPI) equation refit without adjustment for race. BUN/Creatinine Ratio 22.0 LAB CHEMISTRY METHOD 12/12/2024 8:[address] [facility] Calcium 9.2 8.5 - 10.5 mg/dL LAB CHEMISTRY METHOD 12/12/2024 8:[address] [facility] Blood Venous blood specimen / Unknown Venipuncture / Unknown 12/12/2024 5:58 AM EDT 12/12/2024 6:17 AM EDT us Batsheva ANDUJAR LAB BLOOD ORDERABLES Final Re sult [facility] [address] [place] [address], [place] [phone] * XR Chest 1 View (12/12/2024 4:30 AM EDT) Anatomical Region Laterality Modality Body Radiographic Anna ging 12/12/2024 9:06 AM EDT Impressions 12/12/2024 9:08 AM EDT Hypoinflated lung gomez without definite infiltrates or effusions. -------- FINAL REPORT -------- Dictated By: Marie Ring Dictated Date: 12/12/2024 09:06 ET Assigned Physician: Marie Ring Reviewed and Electronically Signed By: Marie Ring Signed Date: 12/12/2024 09:08 ET Workstation ID: [id number] Transcribed By: Self Edit Transcribed Date: 12/12/2024 09:06 ET Narrative 12/12/2024 9:08 AM EDT INDICATION: Chest pain FINDINGS: Single portable AP view of the chest obtained. Compared to multiple prior studies most recent from December 01, 2024. Study limited due to AP semiupright technique as well as patient body habitus. Lungs are hypoinflated. No definitive infiltrates or effusions with left lower lobe airspace disease not excluded. No pneumothorax or pneumomediastinum. Heart enlarged but unchanged. Left chest wall single lead tubular device, unchanged. Bony structures are grossly intact and normal for the patient's age. Procedure Note Marie Ring MD - 12/12/2024 INDICATION: Chest pain FINDINGS: Single portable AP view of the chest obtained. Compared tomultiple prior studies most recent from December 01, 2024. Study limited due to AP semiupright technique as well as patient bodyhabitus. Lungs are hypoinflated. No definitive infiltrates or effusions with leftlower lobe airspace disease not excluded. No pneumothorax orpneumomediastinum. Heart enlarged but unchanged. Left chest wall single lead tubular device,unchanged. Bony structures are grossly intact and normal for the patient's age. IMPRESSION: Hypoinflated lung gomez without definite infiltrates or effusions. -------- FINAL REPORT -------- Dictated By: Marie Ring Dictated Date: 12/12/2024 09:06 ET Assigned Physician: Marie Ring Reviewed and Electronically Signed By: Marie Ring Signed Date: 12/12/2024 09:08 ET Workstation ID: [id number] Transcribed By: Self Edit Transcribed Date: 12/12/2024 09:06 ET us Janine Ortiz MD IMG XR PROCEDURES Final Res ult * CT Head wo Contrast (12/12/2024 2:55 AM EDT) Anatomical Region Laterality Modality Head and Neck Computed Tomogra phy 12/12/2024 3:32 AM EDT Impressions 12/12/2024 3:32 AM EDT 1. No acute intracranial process. 2. Moderate/advanced changes of chronic microvascular ischemic disease with age related global parenchymal volume loss. 3. Mucosal thickening of the ethmoid sinuses. This document has been electronically signed by: Geoff Belcher DO on 12/12/2024 03:32:31 Narrative 12/12/2024 3:32 AM EDT INDICATION: Mental status change, unknown cause CT head without contrast Comparison: CT/MI/SR - BRAIN C- CT - 05/10/23 11:16 EST Findings: No intracranial mass, midline shift, hydrocephalus, or acute hemorrhage. Moderate/advanced changes of chronic microvascular ischemic disease with age related global parenchymal volume loss. Mucosal thickening of the ethmoid sinuses. The orbits are unremarkable. No skull fracture. Procedure Note Geoff Belcher MD - 12/12/2024 INDICATION: Mental status change, unknown cause CT head without contrast Comparison: CT/MI/SR - BRAIN C- CT - 05/10/23 11:16 EST Findings: No intracranial mass, midline shift, hydrocephalus, or acute hemorrhage. Moderate/advanced changes of chronic microvascular ischemic disease with age related global parenchymal volume loss. Mucosal thickening of the ethmoid sinuses. The orbits are unremarkable. No skull fracture. IMPRESSION: 1. No acute intracranial process. 2. Moderate/advanced changes of chronic microvascular ischemic disease with age related global parenchymal volume loss. 3. Mucosal thickening of the ethmoid sinuses. This document has been electronically signed by: Geoff Belcher DO on 12/12/2024 03:32:31 Alyssa Blancas [employer] IMG CT PROCEDURES Final R esult * Osmolality, urine (12/12/2024 2:48 AM EDT) Osmolality, Urine 460 300 - 1,300 mOsm/kg LAB CHEMISTRY METHOD 12/12/2024 8:[address] [facility] Urine Urine specimen obtained by clean catch procedure / Unknown Non-blood Collection / Unknown 12/12/2024 2:48 AM EDT 12/12/2024 2:54 AM EDT Batsheva ANDUJAR LAB URINE ORDERABLES Final Re sult [facility] [address] [place] [address], * Sodium, urine, random (12/12/2024 2:48 AM EDT) Sodium, Ur 53 mmol/L LAB CHEMISTRY METHOD 12/12/2024 7:[address] [facility] Urine Urine specimen obtained by clean catch procedure / Unknown Non-blood Collection / Unknown 12/12/2024 2:48 AM EDT 12/12/2024 2:54 AM EDT us Batsheva ANDUJAR LAB URINE ORDERABLES Final Re sult [facility] [address] [place] [address], * (ABNORMAL) Drug abuse screen 8a panel, urine (12/12/2024 2:48 AM EDT) [facility] Amphetamine Screen, Ur Negative Negative LAB CHEMISTRY METHOD 3:[address] [facility] Comment:Certain OTC medicati ons containing ephedrine, phenylephrine, pseudoephedrine and phenylpropanolamine can cause false positive results. Barbiturate Screen, Ur Negative Negative LAB CHEMISTRY METHOD 3:21 AM [facility] Benzodiazepine Screen, Ur Negative Negative LAB CHEMISTRY METHOD 3:21 AM [facility] Cocaine Screen, Ur Positive(A ) Negative LAB CHEMISTRY METHOD 3:21 AM [facility] Opiate Screen, Ur Negative Negative LAB CHEMISTRY METHOD 3:21 AM [facility] Cannabinoid (THC) Screen, Ur Positive(A ) Negative LAB CHEMISTRY METHOD 3:21 AM [facility] Comment:Specimens from patie nts taking pantoprazole sodium (Protonix) have been shown to produce false positive results. Oxycodone Screen, Ur Negative Negative LAB CHEMISTRY METHOD 3:21 AM [facility] Fentanyl, Ur Negative Negative LAB CHEMISTRY METHOD 3:21 AM [facility] Urine Urine specimen obtained by clean catch procedure / Unknown Non-blood Collection / Unknown 12/12/2024 2:48 AM EDT 12/12/2024 2:[address] [facility] - 12/12/2024 3:21 AM EDT Assay cutoffs: Amphetamines 1000 ng/mL Barbiturates 200 ng/mL Benzodiazepines 200 ng/mL Cocaine 300 ng/mL Fentanyl 1 ng/mL Opiates 300 ng/mL Oxycodone 100 ng/mL THC 50 ng/mL Semi-quantitative assay for screening purposes only. Unconfirmed screening result should not be used for non-medical purposes. *ALTERNATE METHOD CONFIRMATION DONE UPON REQUEST ONLY* Janine Ortiz MD LAB URINE ORDERABLES Final Result Performing Organization Address [facility] Co de Phone Number [facility] [address] [place] [address], [place] [phone] * Lactate, with reflex (12/12/2024 2:48 AM EDT) LACTIC ACID 1.4 0.4 - 2.0 mmol/L LAB CHEMISTRY METHOD 12/12/2024 3:[address] [facility] Blood Venous blood specimen / Unknown Venipuncture / Unknown 12/12/2024 2:48 AM EDT 12/12/2024 2:53 AM EDT Alyssa Blancas NP LAB BLOOD ORDERABLES Merle l Result Performing Organization Address [facility] Co de Phone Number [facility] [address] [place] [address], [place] [phone] * Troponin I high sensitivity (12/12/2024 1:45 AM EDT) High Sensitivity Troponin I 31 <=79 ng/L LAB CHEMISTRY METHOD 12/12/2024 2:[address] [facility] Blood Venous blood specimen / Unknown Venipuncture / Unknown 12/12/2024 1:45 AM EDT 12/12/2024 2:[address] [facility] - 12/12/2024 2:38 AM EDT High levels of biotin in samples may falsely decrease hsTroponin values. Use caution when interpreting hsTroponin results in patients taking biotin who exhibit renal impairment (eGFR <60) or in patients taking more than 20 mg/day of biotin. Eduardo Baumann MD LAB BLOOD ORDERABLES Final R esult Performing Organization Address [facility]/ZIP Co de Phone Number [facility] [address] [place] [address], [place] [phone] * Osmolality (12/11/2024 10:52 PM EDT) Pathologist [facility] Osmolality Bharathi 287 280 - 300 mOsm/kg LAB CHEMISTRY METHOD 12/12/2024 6:[address] [facility] Blood Venous blood specimen / Unknown Venipuncture / Unknown 12/11/2024 10:52 PM EDT 12/11/2024 11:41 PM EDT Batsheva ANDUJAR LAB BLOOD ORDERABLES Final Re sult Performing Organization Address [facility]/ZIP Co de Phone Number [facility] [address] [place] [address], * C-reactive protein (12/11/2024 10:52 PM EDT) [facility] C-Reactive Protein 0.50 <=0.50 mg/dL LAB CHEMISTRY METHOD 12/12/2024 2:[address] [facility] Blood Venous blood specimen / Unknown Venipuncture / Unknown 12/11/2024 10:52 PM EDT 12/11/2024 11:41 PM EDT Janine Ortiz MD LAB BLOOD ORDERABLES Final Result Performing Organization Address City/[facility]/ZIP Co de Phone Number [facility] [address] [place] [address], * Ethanol (12/11/2024 10:52 PM EDT) Pathologist [facility] Ethanol Level <3 0 - 10 mg/dL LAB CHEMISTRY METHOD 12/12/2024 2:[address] [facility] Blood Venous blood specimen / Unknown Venipuncture / Unknown 12/11/2024 10:52 PM EDT 12/11/2024 11:41 PM EDT us Janine Ortiz MD LAB BLOOD ORDERABLES Final Result Performing Organization Address [facility]/ZIP Co de Phone Number [facility] [address] [place] [address], [place] [phone] * (ABNORMAL) Hemoglobin A1c (12/11/2024 10:52 PM EDT) Pathologist [facility] Hemoglobin A1C 8.5(H) <6.5 % LAB CHEMISTRY METHOD 12/12/2024 10:[address] [facility] Mean Bld Glu Estim. 197 mg/dL LAB CHEMISTRY METHOD 12/12/2024 10:[address] [facility] Blood Venous blood specimen / Unknown Venipuncture / Unknown 12/11/2024 10:52 PM EDT 12/11/2024 11:42 PM EDT Alyssa Blancas NP LAB BLOOD ORDERABLES Merle l Result [facility] [address] [place] [address], [place] [phone] * (ABNORMAL) CBC auto differential (12/11/2024 10:52 PM EDT) WBC 9.9 4.8 - 10.8 K/[facility] HEMETOLOGY METHOD 12/12/2024 12:[address] [facility] RBC 5.90(H) 4.50 - 5.50 M/[facility] HEMETOLOGY METHOD 12/12/2024 12:01 AM [facility] Hemoglobin 15.9 13.5 - 17.5 g/dL LAB HEMETOLOGY METHOD 12/12/2024 12:01 AM [facility] Hematocrit 50.5 42.0 - 54.0 % LAB HEMETOLOGY METHOD 12/12/2024 12:01 AM [facility] MCV 85.4 79.0 - 98.0 FL LAB HEMETOLOGY METHOD 12/12/2024 12:01 AM [facility] MCH 26.9(L) 27.0 - 32.0 pcg LAB HEMETOLOGY METHOD 12/12/2024 12:01 AM [facility] MCHC 31.5(L) 32.0 - 37.0 g/dL LAB HEMETOLOGY METHOD 12/12/2024 12:01 AM [facility] RDW 13.7 11.0 - 15.0 % LAB HEMETOLOGY METHOD 12/12/2024 12:01 AM [facility] Platelets 182 130 - 400 K/mcL LAB HEMETOLOGY METHOD 12/12/2024 12:01 AM [facility] MPV 11.2(H) 7.0 - 11.0 FL LAB HEMETOLOGY METHOD 12/12/2024 12:01 AM [facility] NRBC 0.0 <1.0 % LAB HEMETOLOGY METHOD 12/12/2024 12:01 AM [facility] NRBC Absolute 0.00 <0.10 K/mcL LAB HEMETOLOGY METHOD 12/12/2024 12:01 AM [facility] Neutrophils Relative 64.7 % LAB HEMETOLOGY METHOD 12/12/2024 12:01 AM [facility] Lymphocytes Relative 23.6 % LAB HEMETOLOGY METHOD 12/12/2024 12:01 AM [facility] Monocytes Relative 10.4 % LAB HEMETOLOGY METHOD 12/12/2024 12:01 AM [facility] Eosinophils Relative 0.5 % LAB HEMETOLOGY METHOD 12/12/2024 12:01 AM [facility] Basophils Relative 0.3 % LAB HEMETOLOGY METHOD 12/12/2024 12:01 AM [facility] Immature Granulocytes Relative 0.5 % LAB HEMETOLOGY METHOD 12/12/2024 12:01 AM [facility] Neutrophils Absolute 6.37 1.50 - 7.00 K/mcL LAB HEMETOLOGY METHOD 12/12/2024 12:01 AM [facility] Lymphocytes Absolute 2.33 1.00 - 5.00 K/mcL LAB HEMETOLOGY METHOD 12/12/2024 12:01 AM [facility] Monocytes Absolute 1.03(H) 0.20 - 1.00 K/mcL LAB HEMETOLOGY METHOD 12/12/2024 12:01 AM [facility] Eosinophils Absolute 0.05 0.00 - 0.50 K/mcL LAB HEMETOLOGY METHOD 12/12/2024 12:01 AM [facility] Basophils Absolute 0.03 0.00 - 0.20 K/mcL LAB HEMETOLOGY METHOD 12/12/2024 12:01 AM [facility] Immature Granulocytes Absolute 0.05(H) 0.00 - 0.03 K/mcL LAB HEMETOLOGY METHOD 12/12/2024 12:01 AM [facility] Blood Venous blood specimen / Unknown Venipuncture / Unknown 12/11/2024 10:52 PM EDT 12/11/2024 11:42 PM EDT us Eduardo Baumann MD LAB BLOOD ORDERABLES Final R esult [facility] [address] [place] [address], * B-type natriuretic peptide (12/11/2024 10:52 PM EDT) [facility] BNP 79 <=100 pcg/mL LAB CHEMISTRY METHOD 12/12/2024 12:[address] [facility] Blood Venous blood specimen / Unknown Venipuncture / Unknown 12/11/2024 10:52 PM EDT 12/11/2024 11:51 PM EDT Eduardo Baumann MD LAB BLOOD ORDERABLES Final R esult Performing Organization Address City/[facility]/ZIP Co de Phone Number [facility] [address] [place] [address], * Magnesium (12/11/2024 10:52 PM EDT) [facility] Magnesium 2.4 1.9 - 2.6 mg/dL LAB CHEMISTRY METHOD 12/12/2024 12:[address] [facility] Blood Venous blood specimen / Unknown Venipuncture / Unknown 12/11/2024 10:52 PM EDT 12/11/2024 11:41 PM EDT Eduardo Baumann MD LAB BLOOD ORDERABLES Final R esult [facility] [address] [place] [address], [place] [phone] * (ABNORMAL) Lipase (12/11/2024 10:52 PM EDT) [facility] Lipase 87(H) 13 - 75 unit/L LAB CHEMISTRY METHOD 12/12/2024 12:[address] [facility] Blood Venous blood specimen / Unknown Venipuncture / Unknown 12/11/2024 10:52 PM EDT 12/11/2024 11:41 PM EDT us Eduardo Baumann MD LAB BLOOD ORDERABLES Final R esult [facility] [address] [place] [address], [place] [phone] * (ABNORMAL) Comprehensive metabolic panel (12/11/2024 10:52 PM EDT) Pathologist [facility] Sodium 128(L) 133 - 145 mmol/L LAB CHEMISTRY METHOD 12/12/2024 12:48 AM [facility] Potassium 2.8(LL) 3.5 - 5.5 mmol/L LAB CHEMISTRY METHOD 12/12/2024 12:48 AM [facility] Chloride 82(L) 96 - 110 mmol/L LAB CHEMISTRY METHOD 12/12/2024 12:48 AM [facility] CO2 37(H) 21 - 32 mmol/L LAB CHEMISTRY METHOD 12/12/2024 12:48 AM [facility] Anion Gap 9 3 - 11 LAB CHEMISTRY METHOD 12/12/2024 12:48 AM [facility] Glucose 169(H) 70 - 100 mg/dL LAB CHEMISTRY METHOD 12/12/2024 12:48 AM [facility] BUN 29(H) 5 - 25 mg/dL LAB CHEMISTRY METHOD 12/12/2024 12:48 AM [facility] Creatinine 1.50(H) 0.70 - 1.30 mg/dL LAB CHEMISTRY METHOD 12/12/2024 12:48 AM [facility] eGFR 51(L) >=60 mL/min/1. 73m2 LAB CHEMISTRY METHOD 12/12/2024 12:48 AM [facility] Comment:Calculation based on the Chronic Kidney Disease Epidemiology Collaboration (CKD-EPI) equation refit without adjustment for race. BUN/Creatinine Ratio 19.3 LAB CHEMISTRY METHOD 12/12/2024 12:48 AM [facility] Calcium 9.5 8.5 - 10.5 mg/dL LAB CHEMISTRY METHOD 12/12/2024 12:48 AM [facility] AST (SGOT) 67(H) 10 - 42 unit/L LAB CHEMISTRY METHOD 12/12/2024 12:48 AM [facility] ALT (SGPT) 98(H) 10 - 60 unit/L LAB CHEMISTRY METHOD 12/12/2024 12:48 AM [facility] Alkaline Phosphatase 116 42 - 121 unit/L LAB CHEMISTRY METHOD 12/12/2024 12:48 AM [facility] Total Protein 7.7 6.0 - 8.0 g/dL LAB CHEMISTRY METHOD 12/12/2024 12:48 AM [facility] Albumin 4.0 3.2 - 5.0 g/dL LAB CHEMISTRY METHOD 12/12/2024 12:48 AM [facility] Total Bilirubin 0.7 0.0 - 1.4 mg/dL LAB CHEMISTRY METHOD 12/12/2024 12:48 AM [facility] Blood Venous blood specimen / Unknown Venipuncture / Unknown 12/11/2024 10:52 PM EDT 12/11/2024 11:41 PM EDT us Eduardo Baumann MD LAB BLOOD ORDERABLES Final R esult [facility] [address] [place] [address], * Troponin I high sensitivity (12/11/2024 10:52 PM EDT) High Sensitivity Troponin I 30 <=79 ng/L LAB CHEMISTRY METHOD 12/12/2024 12:24 AM [facility] Blood Venous blood specimen / Unknown Venipuncture / Unknown 12/11/2024 10:52 PM EDT 12/11/2024 11:41 PM EDT Narrative [facility] ([facility] - 12/12/2024 12:24 AM EDT High levels of biotin in samples may falsely decrease hsTroponin values. Use caution when interpreting hsTroponin results in patients taking biotin who exhibit renal impairment (eGFR <60) or in patients taking more than 20 mg/day of biotin. Eduardo Baumann MD LAB BLOOD ORDERABLES Final R esult [facility] [address] [place] [address], [place] [phone] * ECG 12 lead (12/11/2024 10:47 PM EDT) Ventricular Rate ECG 61 BPM GEMUSE Atrial Rate 61 BPM GEMUSE P-R Interval 202 ms GEMUSE QRS Duration 108 ms GEMUSE Q-T Interval 436 ms GEMUSE QTc 438 ms GEMUSE P Wave [place] 37 degrees GEMUSE R [place] 65 degrees GEMUSE T [place] 13 degrees GEMUSE ECG Interpretation Normal sinus rhythm Low voltage QRS Possible Anterolateral infarct (cited on or before 01-DEC-2024) T wave abnormality, consider inferior ischemia Abnormal ECG When compared with ECG of 01-DEC-2024 21:38, Premature ventricular complexes are no longer Present Confirmed by SIDRA GARRETT ([id number]) on 12/12/2024 11:43:36 AM GEMUSE 12/11/2024 10:4 7 PM EDT 12/12/2024 11:43 AM EDT Eduardo Baumann MD ECG ORDERABLES Final Result GEMUSE documented in this encounter Visit Diagnoses Diagnosis Hypokalemia- Primary Hypopotassemia Hypokalemia Hypopotassemia CKD stage 3a, GFR 45-59 ml/min (CMS/HCC V24, CMS/HCC V28) Anxiety Anxiety state, unspecified Acute on chronic combined systolic and diastolic congestive heart failure (CMS/HCC V24, [facility] V28) Encounter for adjustment or management of cardiac device documented in this encounter Admitting Diagnoses Diagnosis Hypokalemia Hypopotassemia documented in this encounter Administered Medications Inactive Administered Medications - up to 3 most recent administrations Medication Order MAR Action Action Date Dose Rate Site acetaminophen (TYLENOL) tablet 650 mg 650 mg, oral, Every 4 hours PRN, mild pain, headaches, fever - temperature GREATER than 38 C (100.4 F), Starting on Mon12/12/24 at 0428 Given 12/13/2024 12:12 AM EDT 650 mg Given 12/12/2024 5:27 AM EDT 650 mg albuterol 2.5 mg /3 mL (0.083 %) nebulizer solution 2.5 mg 2.5 mg, nebulization, Every 4 hours PRN, wheezing, Starting on Mon12/12/24 at 0455 Given 12/13/2024 10:46 AM EDT 2 .5 mg amiodarone (PACERONE) tablet 400 mg 400 mg, oral, Daily, First dose on Mon12/12/24 at 0900 Given 12/13/2024 9:14 AM EDT 400 mg Given 12/12/2024 8:43 AM EDT 400 mg aspirin EC tablet 81 mg 81 mg, oral, Daily, First dose on Mon12/12/24 at 0900, For 285 days, Do not crush, chew, or split. Given 12/13/2024 9:14 AM EDT 81 mg Given 12/12/2024 8:43 AM EDT 81 mg bumetanide (BUMEX) tablet 2 mg 2 mg, oral, 2 times daily, First dose on Mon12/12/24 at 0900 Given 12/12/2024 8:43 AM EDT 2 mg bumetanide (BUMEX) tablet 2 mg 2 mg, oral, Once, On Mon12/13/24 at 1115, For 1 dose Given 12/13/2024 12:33 PM EDT 2 mg carvediloL (COREG) tablet 3.125 mg 3.125 mg, oral, 2 times daily with meals, First dose on Mon12/12/24 at 0800 Given 12/13/2024 9:14 AM EDT 3.125 mg Given 12/12/2024 5:11 PM EDT 3.125 mg Given 12/12/2024 8:42 AM EDT 3.125 mg dapagliflozin propanediol (FARXIGA) tablet 10 mg 10 mg, oral, Daily, First dose on Erika 12/12/24 at 1145, Was patient receiving dapagliflozin prior to admission for the treatment of HEART FAILURE? (See order restrictions above): Yes Given 12/13/2024 9:14 AM EDT 10 mg Given 12/12/2024 11:55 AM EDT 10 mg dextrose (D50W) 50% injection 12.5 g 12.5 g, intravenous, Every 15 min PRN, low blood sugar, moderate hypoglycemia *Patient is Unconscious, NPO, unable to swallow: BG 54 - 69 mg/dl*, Starting on Erika 12/12/24 at 1133 dextrose (D50W) 50% injection 25 g 25 g, intravenous, Every 15 min PRN, low blood sugar, severe hypoglycemia *Patient is Unconscious, NPO, unable to swallow: BG LESS than 54 mg/dL*, Starting on Erika 12/12/24 at 1133 dextrose 15 gram/60 mL oral solution 15 g 15 g, oral, Every 15 min PRN, low blood sugar, hypoglycemia *Patient conscious AND able to drink and swallow safely*, Starting on Erika 12/12/24 at 1133 dextrose 15 gram/60 mL oral solution 30 g 30 g, oral, Every 15 min PRN, low blood sugar, hypoglycemia *Patient conscious AND able to drink and swallow safely*, Starting on Erika 12/12/24 at 1133 docusate sodium (COLACE) capsule 100 mg 100 mg, oral, 2 times daily, First dose on Erika 12/12/24 at 0900 Given 12/13/2024 9:14 AM EDT 100 mg Given 12/12/2024 8:36 PM EDT 100 mg enoxaparin (LOVENOX) injection 40 mg 40 mg, subcutaneous, Every 12 hours scheduled, First dose on Erika 12/12/24 at 0900, Indication: VTE/PE Prophylaxis Given 12/12/2024 8:37 PM EDT 40 mg Left Lower Abdomen Given 12/12/2024 8:46 AM EDT 40 mg Le ft Lower Abdomen furosemide (LASIX) injection 40 mg 40 mg, intravenous, Once, On Erika 12/12/24 at 1115, For 1 dose Given 12/12/2024 11:27 AM EDT 40 mg furosemide (LASIX) injection 80 mg 80 mg, intravenous, BID Diuretic, First dose on Erika 12/12/24 at 1700 Given 12/12/2024 5:11 PM EDT 80 mg gabapentin (NEURONTIN) capsule 800 mg 800 mg, oral, Every 8 hours scheduled, First dose on Erika 12/12/24 at 0600 Given 12/13/2024 2:14 PM EDT 800 mg Given 12/13/2024 6:37 AM EDT 800 mg Given 12/12/2024 8:37 PM EDT 800 mg glucagon HCL injection 1 mg 1 mg, intramuscular, Once as needed, low blood sugar, severe hypoglycemia, Starting on Mon12/12/24 at 1133, For 1 dose insulin lispro injection 2-12 Units 2-12 Units, subcutaneous, 3 times daily before meals, First dose on Erika 12/12/24 at 1200, Indication: Total Daily Dose (TDD) 40 - 80 units. Correction Scale: Moderate Dose Administer with meal and/or mealtime dose of insulin to correct high blood glucose If mealtime insulin dose not given (e.g. patient NPO or not eating), still administer correction factor for high blood glucose Given 12/12/2024 5:09 PM EDT 4 Units Right Upper Arm (Chris k) Given 12/12/2024 11:55 AM EDT 8 Units L eft Upper Arm (Back) LORazepam (ATIVAN) tablet 0.5 mg 0.5 mg, oral, Daily PRN, anxiety, panic attack, Starting on Mon12/12/24 at 0455 Given 12/12/2024 8:42 AM EDT 0.5 mg LORazepam (ATIVAN) tablet 0.5 mg 0.5 mg, oral, Once, On Mon12/12/24 at 2345, For 1 dose Given 12/12/2024 11:38 PM EDT 0.5 mg LORazepam (ATIVAN) tablet 1 mg 1 mg, oral, Once, On Mon12/12/24 at 0140, For 1 dose Given 12/12/2024 1:57 AM EDT 1 mg melatonin disintegrating tablet 10 mg 10 mg, oral, Nightly PRN, sleep, Starting on 12/12/24 at 0455 Given 12/12/2024 11:19 PM EDT 10 mg nicotine (NICODERM CQ) 7 mg/24 hr 1 patch 1 patch, transdermal, Administer over 24 Hours, Daily, First dose on Erika 12/12/24 at 0900 Patch Applied 12/12/2024 8:44 AM EDT 1 patch Left Arm ondansetron (PF) (ZOFRAN) injection 4 mg 4 mg, intravenous, Every 8 hours PRN, vomiting, nausea, Starting on Erika 12/12/24 at 0428, -ONLY give IV if patient is unable to take orally. -If inadequate response within 30 minutes, proceed to next-line agent or contact provider if no further options ordered. ondansetron ODT (ZOFRAN-ODT) disintegrating tablet 4 mg 4 mg, oral, Every 8 hours PRN, vomiting, nausea, Starting on Erika 12/12/24 at 0428, -Give IV if patient is unable to take orally. -If inadequate response within 30 minutes, proceed to next-line agent or contact provider if no further options ordered. For ODT tablets: -Do not remove from blister pack until just before administering. -Patient should allow tablet to dissolve on tongue. potassium chloride (KLOR-CON M20) CR tablet 40 mEq 40 mEq, oral, Once, On Erika 12/12/24 at 0900, For 1 dose, Tablet may be swallowed whole (do not crush/chew/suck on) OR broken in half and each half swallowed separately OR dissolved (whole tablet) in ~4 ounces of water (allow ~2 minutes to dissolve, stir well and administer immediately). Given 12/12/2024 8:43 AM EDT 40 mEq potassium chloride (KLOR-CON M20) CR tablet 40 mEq 40 mEq, oral, Once, On Erika 12/12/24 at 1100, For 1 dose, Tablet may be swallowed whole (do not crush/chew/suck on) OR broken in half and each half swallowed separately OR dissolved (whole tablet) in ~4 ounces of water (allow ~2 minutes to dissolve, stir well and administer immediately). Given 12/12/2024 10:40 AM EDT 40 mEq potassium chloride (KLOR-CON M20) CR tablet 40 mEq 40 mEq, oral, Once, On Mon12/13/24 at 0900, For 1 dose, Tablet may be swallowed whole (do not crush/chew/suck on) OR broken in half and each half swallowed separately OR dissolved (whole tablet) in ~4 ounces of water (allow ~2 minutes to dissolve, stir well and administer immediately). Given 12/13/2024 10:35 AM EDT 40 mEq potassium chloride (KLOR-CON) packet 40 mEq 40 mEq, oral, Once, On Erika 12/12/24 at 0340, For 1 dose, Dissolve each packet in 4 ounces of water = 5 mEq per 1 oz fluid. Given 12/12/2024 3:50 AM EDT 40 mEq potassium chloride (KLOR-CON) packet 40 mEq 40 mEq, oral, Once, On Erika 12/12/24 at 0540, For 1 dose, Dissolve each packet in 4 ounces of water = 5 mEq per 1 oz fluid. Given 12/12/2024 5:12 AM EDT 40 mEq potassium chloride 10 mEq/100 mL IVPB 10 mEq 10 mEq, intravenous, at 100 mL/hr, Administer over 1 Hours, Every 1 hour, First dose on Erika 12/12/24 at 0048, For 8 doses New Bag 12/12/2024 3:33 AM EDT 10 mEq 100 mL/hr New Bag 12/12/2024 1:59 AM EDT 10 mEq 100 mL/hr rosuvastatin (CRESTOR) tablet 40 mg 40 mg, oral, Daily, First dose on Erika 12/12/24 at 0900, Was patient receiving rosuvastatin prior to admission? (See order restrictions above): Yes Given 12/13/2024 9:13 AM EDT 40 mg Given 12/12/2024 8:43 AM EDT 40 mg sacubitriL-valsartan (ENTRESTO) 24-26 mg per tablet 1 tablet 1 tablet, oral, 2 times daily, First dose on Erika 12/12/24 at 0900, For 310 days, Contraindicated in combination with MAN inhibitors. Ensure a minimum of 36 hours between any MAN inhibitor dose and sacubitril-valsartan. Given 12/13/2024 9:13 AM EDT 1 tablet Given 12/12/2024 8:36 PM EDT 1 tablet Given 12/12/2024 8:42 AM EDT 1 tablet sodium chloride 0.9 % bolus 1,000 mL 1,000 mL, intravenous, at 1,000 mL/hr, Administer over 1 Hours, Once, On Erika 12/12/24 at 0048, For 1 dose New Bag 12/12/2024 1:59 AM EDT 1,000 mL 1000 mL/hr sodium chloride 0.9 % flush 10 mL 10 mL, intravenous, 2 times daily, First dose on [facility] 12/12/24 at 0900 Given 12/13/2024 9:16 AM EDT 10 mL Given 12/12/2024 8:44 AM EDT 10 mL sodium chloride 0.9 % flush 10 mL 10 mL, intravenous, As needed, line care, Starting on [facility] 12/12/24 at 0428 spironolactone (ALDACTONE) tablet 50 mg 50 mg, oral, Daily, First dose on [facility] 12/12/24 at 0900, Hazardous Medication Intact: - Single pair of ASTM standard [id number] certified gloves - Eye/face protection if vomit or potential to spit up Manipulated: - Double pair of ASTM standard [id number] certified gloves - Eye/face protection if vomit or potential to spit up - Staff at reproductive risk must also wear a hazardous gown - Crushing must be performed in sealed closed pouch - Splitting/cutting should be performed by pharmacy, if possible Given 12/13/2024 9:14 AM EDT 50 mg Given 12/12/2024 8:43 AM EDT 50 mg tamsulosin (FLOMAX) 24 hr capsule 0.4 mg 0.4 mg, oral, Daily, First dose on [facility] 12/12/24 at 0900, For 224 days, For oral administration: capsules should be swallowed whole (Do not crush, chew, or open). For tube administration: open capsule and administer with water (granules should NOT be crushed). Given 12/13/2024 9:14 AM EDT 0.4 mg Given 12/12/2024 8:41 AM EDT 0.4 mg topiramate (TOPAMAX) tablet 100 mg 100 mg, oral, Every evening, First dose on [facility] 12/12/24 at 1800, Hazardous Medication Intact: - Single pair of ASTM standard [id number] certified gloves - Eye/face protection if vomit or potential to spit up - Do NOT split, crush, or open dosage units Given 12/12/2024 5:11 PM EDT 100 mg documented in this encounter Discontinued Medications Medication Sig Discontinue Reason Start Date End Da te urea (CARMOL) 20 % cream if needed. 1 application to (affected) skin 2 times per day 12/13/2024 oxyCODONE (ROXICODONE) 10 mg immediate release tabletIndications:Leg pain, anterior, left Take 1 tablet (10 mg total) by mouth 2 (two) times a day if needed for severe pain for up to 7 days. Max Daily Amount: 20 mg Stop Taking at Discharge 12/11/2024 12/13/2024 documented as of this encounter Active and Recently Administered Medications Times are shown in EDT. Scheduled Medication Order 12/11/2024 12/12/2024 12/13/2024 amiodarone (PACERONE) tablet 400 mg 400 mg, oral, Daily, First dose on Mon12/12/24 at 0900 0843 (Given - Provider: Nara Hernandez RN) 0914 (Given - Provider: Rhonda Toth, RN) aspirin EC tablet 81 mg 81 mg, oral, Daily, First dose on Mon12/12/24 at 0900, For 285 days, Do not crush, chew, or split. 0843 (Given - Provider: Nara Hernandez, EDD) 0914 (Given - Provider: Rhonda Toth, RN) bumetanide (BUMEX) tablet 2 mg 2 mg, oral, 2 times daily, First dose on Erika 12/12/24 at 0900 0843 (Given - Provider: Nara Hernandez RN)1056 (Held by provider - Provider: PRATIMA Fischer - Reason: Other)2100 (Dose Auto Held - Provider: PRATIMA Fischer) 0900 (Not Given - Provider: Rhonda Toth, RN - Reason: See Provider Order)0914 (Unheld by provider - Provider: PRATIMA Fischer) bumetanide (BUMEX) tablet 2 mg (COMPLETED) 2 mg, oral, Once, On Mon12/13/24 at 1115, For 1 dose 1233 (Given - Provid er: Rhonda Toth RN) carvediloL (COREG) tablet 3.125 mg 3.125 mg, oral, 2 times daily with meals, First dose on Mon12/12/24 at 0800 0842 (Given - Provider: Nara Hernandez RN)1711 (Given - Provider: Nara Hernandez RN) 0914 (Given - Provider: Rhonda Toth RN)1700 (Canceled Entry - Provider: Automatic Discharge Provider - Comment: Automatically canceled at discontinue of medication order) dapagliflozin propanediol (FARXIGA) tablet 10 mg 10 mg, oral, Daily, First dose on Mon12/12/24 at 1145, Was patient receiving dapagliflozin prior to admission for the treatment of HEART FAILURE? (See order restrictions above): Yes 1155 (Given - Provider: Nara Hernandez RN) 0914 (Given - Provider: Rhonda Toth RN) docusate sodium (COLACE) capsule 100 mg 100 mg, oral, 2 times daily, First dose on Mon12/12/24 at 0900 0842 (Not Given - Provider: Nara Hernandez RN - Reason: Patient/Resident/Agent refused - education provided )2035 (Given - Provider: Doreen Hills RN) 0914 (Given - Provider: Rhonda Toth, EDD) enoxaparin (LOVENOX) injection 40 mg 40 mg, subcutaneous, Every 12 hours scheduled, First dose on Mon12/12/24 at 0900, Indication: VTE/PE Prophylaxis 0846 (Given - Provider: Nara Hernandez RN)2036 (Given - Provider: Doreen Hills RN) 0915 (Not Given - Provider: Rhonda Toth RN - Reason: Patient/Resident/Agent refused - education provided ) furosemide (LASIX) injection 40 mg (COMPLETED) 40 mg, intravenous, Once, On Mon12/12/24 at 1115, For 1 dose 1127 (Given - Provider: Nara Hernandez RN) furosemide (LASIX) injection 80 mg (CANCELED) 80 mg, intravenous, BID Diuretic, First dose on Mon12/12/24 at 1700 1711 (Given - Provider: Nara Hernandez RN) 0916 (Not Given - Provider: Rhonda Toth RN - Reason: See Provider Order) gabapentin (NEURONTIN) capsule 800 mg 800 mg, oral, Every 8 hours scheduled, First dose on Mon12/12/24 at 0600 0512 (Given - Provider: Rashid Reynolds RN)1317 (Given - Provider: Nara Hernandez RN)2037 (Given - Provider: Doreen Hills RN) 0637 (Given - Provider: Doreen Hills RN)1414 (Given - Provider: Rhonda Toth, EDD) insulin lispro injection 2-12 Units 2-12 Units, subcutaneous, 3 times daily before meals, First dose on Mon12/12/24 at 1200, Indication: Total Daily Dose (TDD) 40 - 80 units. Correction Scale: Moderate Dose Administer with meal and/or mealtime dose of insulin to correct high blood glucose If mealtime insulin dose not given (e.g. patient NPO or not eating), still administer correction factor for high blood glucose 1155 (Given - Provider: Nara Hernandez RN)1709 (Given - Provider: Nara Hernandez RN) 0915 (Not Given - Provider: Rhonda Toth RN - Reason: Patient/Resident/Agent refused - education provided )1227 (Not Given - Provider: Rhonda Toth RN - Reason: Patient/Resident/Agent refused - education provided - Comment: pt refused POC and insulin administration)1630 (Canceled Entry - Provider: Automatic Discharge Provider - Comment: Automatically canceled at discontinue of medication order) LORazepam (ATIVAN) tablet 0.5 mg (COMPLETED) 0.5 mg, oral, Once, On Mon12/12/24 at 2345, For 1 dose 2338 (Given - Provider: Doreen Hills RN) LORazepam (ATIVAN) tablet 1 mg (COMPLETED) 1 mg, oral, Once, On Mon12/12/24 at 0140, For 1 dose 0157 (Given - Provider: Rashid Reynolds RN) nicotine (NICODERM CQ) 7 mg/24 hr 1 patch 1 patch, transdermal, Administer over 24 Hours, Daily, First dose on Mon12/12/24 at 0900 0844 (Patch Applied - Provider: Nara Hernandez RN) 0844 (Patch Removed - Provider: Rhonda Toth RN)0916 (Not Given - Provider: Rhonda Toth RN - Reason: Patient/Resident/Agent refused - education provided ) potassium chloride (KLOR-CON M20) CR tablet 40 mEq (COMPLETED)(Linked Group 1) 40 mEq, oral, Once, On Mon12/12/24 at 0900, For 1 dose, Tablet may be swallowed whole (do not crush/chew/suck on) OR broken in half and each half swallowed separately OR dissolved (whole tablet) in ~4 ounces of water (allow ~2 minutes to dissolve, stir well and administer immediately). 0843 (Given - Provider: Nara Hernandez RN) potassium chloride (KLOR-CON M20) CR tablet 40 mEq (COMPLETED)(Linked Group 1) 40 mEq, oral, Once, On Mon12/12/24 at 1100, For 1 dose, Tablet may be swallowed whole (do not crush/chew/suck on) OR broken in half and each half swallowed separately OR dissolved (whole tablet) in ~4 ounces of water (allow ~2 minutes to dissolve, stir well and administer immediately). 1040 (Given - Provider: Nara Hernandez RN) potassium chloride (KLOR-CON M20) CR tablet 40 mEq (COMPLETED) 40 mEq, oral, Once, On Mon12/13/24 at 0900, For 1 dose, Tablet may be swallowed whole (do not crush/chew/suck on) OR broken in half and each half swallowed separately OR dissolved (whole tablet) in ~4 ounces of water (allow ~2 minutes to dissolve, stir well and administer immediately). 1035 (Given - Provid er: Rhonda Toth RN) potassium chloride (KLOR-CON) packet 40 mEq (COMPLETED)(Linked Group 2) 40 mEq, oral, Once, On Mon12/12/24 at 0340, For 1 dose, Dissolve each packet in 4 ounces of water = 5 mEq per 1 oz fluid. 0350 (Given - Provider: Rashid Reynolds RN) potassium chloride (KLOR-CON) packet 40 mEq (COMPLETED)(Linked Group 2) 40 mEq, oral, Once, On Erika 12/12/24 at 0540, For 1 dose, Dissolve each packet in 4 ounces of water = 5 mEq per 1 oz fluid. 0512 (Given - Provider: Rashid Reynolds RN) potassium chloride 10 mEq/100 mL IVPB 10 mEq (CANCELED) 10 mEq, intravenous, at 100 mL/hr, Administer over 1 Hours, Every 1 hour, First dose on Erika 12/12/24 at 0048, For 8 doses 0159 (New Bag - Provider: Rashid Reynolds RN - Comment: recentlly room)0248 (Canceled Entry - Provider: Alyssa Blancas NP - Comment: Automatically canceled at discontinue of medication order)0332 (Stopped - Provider: Rashid Reynolds RN)0333 (New Bag - Provider: Rashid Reynolds RN - Comment: awaiting previous bag to be finished.)0425 (Stopped - Provider: Rashid Reynolds RN) rosuvastatin (CRESTOR) tablet 40 mg 40 mg, oral, Daily, First dose on Erika 12/12/24 at 0900, Was patient receiving rosuvastatin prior to admission? (See order restrictions above): Yes 0843 (Given - Provider: Nara Hernandez RN) 09 (Given - Provider: Rhonda Toth, EDD) sacubitriL-valsartan (ENTRESTO) 24-26 mg per tablet 1 tablet 1 tablet, oral, 2 times daily, First dose on Erika 12/12/24 at 0900, For 310 days, Contraindicated in combination with MAN inhibitors. Ensure a minimum of 36 hours between any MAN inhibitor dose and sacubitril-valsartan. 0842 (Given - Provider: Nara Hernandez RN)2035 (Given - Provider: Doreen Hills RN) 09 (Given - Provider: Rhonda Toth, EDD) sodium chloride 0.9 % bolus 1,000 mL (COMPLETED) 1,000 mL, intravenous, at 1,000 mL/hr, Administer over 1 Hours, Once, On Erika 12/12/24 at 0048, For 1 dose 0159 (New Bag - Provider: Rashid Reynolds RN - Comment: recently roomed)0431 (Stopped - Provider: Rashid Reynolds RN) sodium chloride 0.9 % flush 10 mL(Linked Group 3) 10 mL, intravenous, 2 times daily, First dose on Erika 12/12/24 at 0900 0844 (Given - Provider: Nara Hernandez RN) 0113 (Not Given - Provider: Doreen Hills RN - Reason: Other - Comment: already given)0916 (Given - Provider: Rhonda Toth, EDD) spironolactone (ALDACTONE) tablet 50 mg 50 mg, oral, Daily, First dose on Erika 12/12/24 at 0900, Hazardous Medication Intact: - Single pair of ASTM standard [id number] certified gloves - Eye/face protection if vomit or potential to spit up Manipulated: - Double pair of ASTM standard [id number] certified gloves - Eye/face protection if vomit or potential to spit up - Staff at reproductive risk must also wear a hazardous gown - Crushing must be performed in sealed closed pouch - Splitting/cutting should be performed by pharmacy, if possible 0843 (Given - Provider: Nara Hernandez RN) 0914 (Given - Provider: Rhonda Toth, EDD) tamsulosin (FLOMAX) 24 hr capsule 0.4 mg 0.4 mg, oral, Daily, First dose on Erika 12/12/24 at 0900, For 224 days, For oral administration: capsules should be swallowed whole (Do not crush, chew, or open). For tube administration: open capsule and administer with water (granules should NOT be crushed). 0841 (Given - Provider: Nara Hernandez RN) 0914 (Given - Provider: Rhonda Toth, EDD) topiramate (TOPAMAX) tablet 100 mg 100 mg, oral, Every evening, First dose on Erika 12/12/24 at 1800, Hazardous Medication Intact: - Single pair of ASTM standard [id number] certified gloves - Eye/face protection if vomit or potential to spit up - Do NOT split, crush, or open dosage units 1711 (Given - Provider: Nara Hernandez RN) PRN Medication Order 12/11/2024 12/12/2024 12/13/2024 acetaminophen (TYLENOL) tablet 650 mg 650 mg, oral, Every 4 hours PRN, mild pain, headaches, fever - temperature GREATER than 38 C (100.4 F), Starting on Erika 12/12/24 at 0428 0527 (Given - Provider: Rashid Reynolds RN) 0012 (Given - Provider: Doreen Hills, RN) albuterol 2.5 mg /3 mL (0.083 %) nebulizer solution 2.5 mg 2.5 mg, nebulization, Every 4 hours PRN, wheezing, Starting on Mon12/12/24 at 0455 1046 (Given - Provid er: No Atkins, SUNITHA) dextrose (D50W) 50% injection 12.5 g 12.5 g, intravenous, Every 15 min PRN, low blood sugar, moderate hypoglycemia *Patient is Unconscious, NPO, unable to swallow: BG 54 - 69 mg/dl*, Starting on Erika 12/12/24 at 1133 dextrose (D50W) 50% injection 25 g 25 g, intravenous, Every 15 min PRN, low blood sugar, severe hypoglycemia *Patient is Unconscious, NPO, unable to swallow: BG LESS than 54 mg/dL*, Starting on Erika 12/12/24 at 1133 dextrose 15 gram/60 mL oral solution 15 g 15 g, oral, Every 15 min PRN, low blood sugar, hypoglycemia *Patient conscious AND able to drink and swallow safely*, Starting on Mon12/12/24 at 1133 dextrose 15 gram/60 mL oral solution 30 g 30 g, oral, Every 15 min PRN, low blood sugar, hypoglycemia *Patient conscious AND able to drink and swallow safely*, Starting on Mon12/12/24 at 1133 glucagon HCL injection 1 mg 1 mg, intramuscular, Once as needed, low blood sugar, severe hypoglycemia, Starting on Erika 12/12/24 at 1133, For 1 dose LORazepam (ATIVAN) tablet 0.5 mg 0.5 mg, oral, Daily PRN, anxiety, panic attack, Starting on Mon12/12/24 at 0455 0842 (Given - Provider: Nara Hernandez, RN)2335 (Not Given - Provider: Doreen Hills RN - Reason: Other - Comment: provider put in one time order) melatonin disintegrating tablet 10 mg 10 mg, oral, Nightly PRN, sleep, Starting on Mon25 at 0455 2319 (Given - Provider: Doreen Hills RN) ondansetron (PF) (ZOFRAN) injection 4 mg(Linked Group 4) 4 mg, intravenous, Every 8 hours PRN, vomiting, nausea, Starting on Erika 12/12/24 at 0428, -ONLY give IV if patient is unable to take orally. -If inadequate response within 30 minutes, proceed to next-line agent or contact provider if no further options ordered. ondansetron ODT (ZOFRAN-ODT) disintegrating tablet 4 mg(Linked Group 4) 4 mg, oral, Every 8 hours PRN, vomiting, nausea, Starting on Erika 12/12/24 at 0428, -Give IV if patient is unable to take orally. -If inadequate response within 30 minutes, proceed to next-line agent or contact provider if no further options ordered. For ODT tablets: -Do not remove from blister pack until just before administering. -Patient should allow tablet to dissolve on tongue. senna (SENOKOT) tablet 8.6 mg 8.6 mg (1 tablet), oral, Nightly PRN, constipation, Starting on Erika 12/12/24 at 0455 sodium chloride 0.9 % flush 10 mL(Linked Group 3) 10 mL, intravenous, As needed, line care, Starting on Erika 12/12/24 at 0428 Linked Groups Order Group 1: potassium chloride (KLOR-CON M20) CR tablet 40 mEq (COMPLETED)Jump to med 40 mEq, oral, Once, On Erika 12/12/24 at 0900, For 1 dose, Tablet may be swallowed whole (do not crush/chew/suck on) OR broken in half and each half swallowed separately OR dissolved (whole tablet) in ~4 ounces of water (allow ~2 minutes to dissolve, stir well and administer immediately). Followed by potassium chloride (KLOR-CON M20) CR tablet 40 mEq (COMPLETED)Jump to med 40 mEq, oral, Once, On Erika 12/12/24 at 1100, For 1 dose, Tablet may be swallowed whole (do not crush/chew/suck on) OR broken in half and each half swallowed separately OR dissolved (whole tablet) in ~4 ounces of water (allow ~2 minutes to dissolve, stir well and administer immediately). Group 2: potassium chloride (KLOR-CON) packet 40 mEq (COMPLETED)Jump to med 40 mEq, oral, Once, On Erika 12/12/24 at 0340, For 1 dose, Dissolve each packet in 4 ounces of water = 5 mEq per 1 oz fluid. Followed by potassium chloride (KLOR-CON) packet 40 mEq (COMPLETED)Jump to med 40 mEq, oral, Once, On Erika 12/12/24 at 0540, For 1 dose, Dissolve each packet in 4 ounces of water = 5 mEq per 1 oz fluid. Group 3: Insert peripheral IV (COMPLETED) STAT, Once, On Erika 12/12/24 at 0428, For 1 occurrence And Maintain IV access (CANCELED) Until discontinued, Starting on Erika 12/12/24 at 0428, Until Specified And Saline lock IV (CANCELED) Routine, Once, On Erika 12/12/24 at 0428, For 1 occurrence And sodium chloride 0.9 % flush 10 mLJump to med 10 mL, intravenous, 2 times daily, First dose on Erika 12/12/24 at 0900 And sodium chloride 0.9 % flush 10 mLJump to med 10 mL, intravenous, As needed, line care, Starting on Erika 12/12/24 at 0428 Group 4: ondansetron ODT (ZOFRAN-ODT) disintegrating tablet 4 mgJump to med 4 mg, oral, Every 8 hours PRN, vomiting, nausea, Starting on Erika 12/12/24 at 0428, -Give IV if patient is unable to take orally. -If inadequate response within 30 minutes, proceed to next-line agent or contact provider if no further options ordered. For ODT tablets: -Do not remove from blister pack until just before administering. -Patient should allow tablet to dissolve on tongue. Or ondansetron (PF) (ZOFRAN) injection 4 mgJump to med 4 mg, intravenous, Every 8 hours PRN, vomiting, nausea, Starting on Erika 12/12/24 at 0428, -ONLY give IV if patient is unable to take orally. -If inadequate response within 30 minutes, proceed to next-line agent or contact provider if no further options ordered. documented in this encounter Orders Medications Ordered That Rony ht Not Have Been Administered Count Last Ordered Date First Ordered Date dextrose (D50W) 50% injection 12.5 g 1 11/19 dextrose (D50W) 50% injection 25 g 1 2024 dextrose 15 gram/60 mL oral solution 15 g 1 12/12/2024 dextrose 15 gram/60 mL oral solution 30 g 1 12/12/2024 glucagon HCL injection 1 mg 1 12/12/2024 ondansetron (PF) (ZOFRAN) injection 4 mg 1 12/12/2024 ondansetron ODT (ZOFRAN-ODT) disintegrating tablet 4 mg 1 12/12/2024 senna (SENOKOT) tablet 8.6 mg 1 12/12/2024 sodium chloride 0.9 % flush 10 mL 1 025 Nursing Count Last Ordered Date First Orde red Date PULSE OXIMETRY 1 12/12/2024 Consult Count Last Ordered Date First Orde red Date IP CONSULT TO SOCIAL WORK 1 12/12/2024 WOUND OSTOMY EVAL AND TREAT 1 12/12/2024 IV Count Last Ordered Date First Orde red Date INSERT PERIPHERAL IV 2 12/12/2024 Admission Count Last Ordered Date First Orde red Date INITIATE OBSERVATION STATUS 1 12/12/2024 Transfer Count Last Ordered Date First Orde red Date ED TO FLOOR BED REQUEST 2 12/12/2024 TRANSFER PATIENT TO NEW UNIT 1 12/12/2024 Discharge Count Last Ordered Date First Orde red Date DISCHARGE PATIENT 1 12/13/2024 documented in this encounter Additional Health Concerns Assessment Noted Time PHQ-9 Depression Total Score: 20 025 12:16 PM EDT documented as of this encounter Care Teams Adjunct Physical Education Instructor Relationship Specialty Start Date End Date Deloris Tobias NP [address] [address] PCP - General Family Medicine 12/01/24 documented as of this encounter
--- OUTSIDE RECORDS SUMMARY | 2024-12-12 10:30 | XMS_ITS | Encounter Summary ---
Author Organization [facility] Address [address] [place] [address] Care Team Providers Care Derrick Worker Name Role Phone Deloris Tobias WHITE SPOOLER Primary Care Provider [phone] Encounter Details Date Type Department Care Team (Late st Contact Info) Description 12/12/2024 10:30 AM EDT PACE Home Care / PACE Home Visit Emilee [facility]ONEY [facility] [address] [place] [phone] Merlin Forbes Social History Tobacco Use Types [...] [place] [facility] [address] [place] [phone] Merlin Forbes 12/16/2024 11:00 AM EDT Office Visit [facility] [address] [place] [address] Deloris Tobias, JOHNATHAN [address] [address] 12/16/2024 6:00 PM EDT PACE Home Care / PACE Home Visit Emilee MAHONEY [facility] [address] [place] [phone] My Phillips 12/17/2024 7:00 AM EDT Clinical Support [facility] [address] [place] [phone] Nkechi Grajeda RN 12/17/2024 9:30 AM EDT PACE Home Care / PACE Home Visit Emilee [facility]ONEY [facility] [address] [place] [phone] Merlin Forbes 12/17/2024 11:00 AM EDT Treatment Emilee MAHONEY MA Occupational Therapy [address] [place] [phone] Tyler Ling OT 12/17/2024 6:00 PM EDT PACE Home Care / PACE Home Visit Emilee [facility] [address] [place] [phone] My Phillips 12/18/2024 10:00 AM EDT PACE Home Care / PACE Home Visit Emilee [facility]ONEY [facility] [address] [place] [phone] Merlin Forbes 12/18/2024 6:00 PM EDT PACE Home Care / PACE Home Visit Emilee MAHONEY [facility] [address] [place] [phone] My Phillips 12/19/2024 10:30 AM EDT PACE Home Care / PACE Home Visit Emilee [facility]HONE[facility] [address] [place] [phone] Merlin Forbes 12/19/2024 6:00 PM EDT PACE Home Care / PACE Home Visit Emilee MAHONEY [facility] [address] [place] [phone] My Phillips 12/20/2024 9:00 AM EDT Appointment [address] [address] 12/20/2024 9:30 AM EDT PACE Home Care / PACE Home Visit Emilee MAHONEY [facility] [address] [place] [phone] Merlin Forbes 12/20/2024 6:00 PM EDT PACE Home Care / PACE Home Visit Emilee MAHONEY [facility] [address] [place] [phone] My Phillips 12/21/2024 8:30 AM EDT PACE Home Care / PACE Home Visit Emilee [facility]HONEY [facility] [address] [place] [phone] Anabelle Valdez 12/22/2024 8:30 AM EDT PACE Home Care / PACE Home Visit Emilee [facility]ONEY [facility] [address] [place] [phone] Anabelle Valdez 12/23/2024 9:30 AM EDT PACE Home Care / PACE Home Visit Emilee [facility]ONE[facility] [address] [place] [phone] Merlin Forbes 12/23/2024 6:00 PM EDT PACE Home Care / PACE Home Visit Emilee MAHONEY [facility] [address] [place] [address] My Phillips 12/24/2024 7:00 AM EDT Clinical Support [facility] [address] [place] [address] Nkechi Grajeda RN 12/24/2024 9:30 AM EDT PACE Home Care / PACE Home Visit Emilee MA[facility]ONE[facility] [address] [place] [phone] Merlin Forbes 12/24/2024 6:00 PM EDT PACE Home Care / PACE Home Visit Emilee MAHONE[facility] [address] [place] [phone] My Phillips 12/25/2024 10:00 AM EDT PACE Home Care / PACE Home Visit Emilee MAHONEY [facility] [address] [place] [phone] Merlin Forbes 12/25/2024 6:00 PM EDT PACE Home Care / PACE Home Visit Emilee MAHONEY [facility] [address] [place] [phone] My Phillips 12/26/2024 10:40 AM EDT Clinical Support Emilee MAHONEY [place] 200 [place] [address] 12/26/2024 6:00 PM EDT PACE Home Care / PACE Home Visit Emilee MAHONEY [facility] [address] [place] [phone] My Phillips 12/27/2024 9:30 AM EDT PACE Home Care / PACE Home Visit Emilee MAHONEY [facility] [address] [place] [phone] Merlin Forbes 12/27/2024 6:00 PM EDT PACE Home Care / PACE Home Visit Emilee MAHONEY [facility] [address] [place] [address] My Phillips 12/30/2024 9:30 AM EDT PACE Home Care / PACE Home Visit Emilee MAHONEY [facility] [address] [place] [address] Merlin Forbes 12/30/2024 6:00 PM EDT PACE Home Care / PACE Home Visit Emilee MAHONEY [facility] [address] [place] [address] My Phillips 12/31/2024 7:00 AM EDT Clinical Support [facility] [address] [place] [phone] Nkechi Grajeda RN 12/31/2024 9:30 AM EDT PACE Home Care / PACE Home Visit Emilee MAHONEY [place] [facility] [address] [place] [phone] Merlin Forbes 12/31/2024 10:00 AM EDT Ancillary Procedure [facility] [address] [facility] [address] [place] [address] 12/31/2024 6:00 PM EDT PACE Home Care / PACE Home Visit Emilee MAHONEY [facility] [address] [place] [phone] My Phillips 01/01/2025 10:00 AM EDT PACE Home Care / PACE Home Visit Emilee MAHONEY [facility] [address] [place] [phone] Merlin Forbes 01/01/2025 6:00 PM EDT PACE Home Care / PACE Home Visit Emilee MAHONEY [place] [facility] [address] [place] [address] My Phillips 01/02/2025 10:30 AM EDT PACE Home Care / PACE Home Visit Emilee [facility]ONE[facility] 200 [place] [address] Merlin Forbes 01/02/2025 3:00 PM EDT Clinical Support Emilee MAHONEY [place] 200 [place] [address] 01/02/2025 6:00 PM EDT PACE Home Care / PACE Home Visit Emilee MAHONEY [facility] [address] [place] [phone] My Phillips 01/03/2025 9:30 AM EDT PACE Home Care / PACE Home Visit Emilee MAHONEY [facility] [address] [place] [phone] Merlin Forbes 01/03/2025 6:00 PM EDT PACE Home Care / PACE Home Visit Emilee MAHONEY [facility] [address] [place] [phone] My Phillips 01/04/2025 8:30 AM EDT PACE Home Care / PACE Home Visit Emilee MAHONEY [facility] [address] [place] [phone] Anabelle Valdez 01/05/2025 8:30 AM EDT PACE Home Care / PACE Home Visit Emilee MAHONEY [facility] [address] [place] [phone] Anabelle Valdez 01/06/2025 9:30 AM EDT PACE Home Care / PACE Home Visit Emilee MAHONEY [facility] [address] [place] [phone] Merlin Forbes 01/06/2025 6:00 PM EDT PACE Home Care / PACE Home Visit Emilee MAHONEY [facility] [address] [place] [address] My Phillips 01/07/2025 7:00 AM EDT Clinical Support [facility] [address] [place] [phone] Nkechi Grajeda, EDD 01/07/2025 8:15 AM EDT Clinical Support [facility] [address] [place] [phone] Nkechi Grajeda, EDD 01/07/2025 9:30 AM EDT PACE Home Care / PACE Home Visit Emilee MAHONEY [facility] [address] [place] [phone] Merlin Forbes 01/07/2025 6:00 PM EDT PACE Home Care / PACE Home Visit Emilee MAHONEY [facility] [address] [place] [phone] My Phillips 01/08/2025 10:00 AM EDT PACE Home Care / PACE Home Visit Emilee MAHONEY [facility] [address] [place] [phone] Merlin Forbes 01/08/2025 6:00 PM EDT PACE Home Care / PACE Home Visit Emilee MAHONEY [facility] [address] [place] [phone] My Phillips 01/09/2025 10:30 AM EDT PACE Home Care / PACE Home Visit Emilee MAHONEY [facility] [address] [place] [phone] Merlin Forbes 01/09/2025 6:00 PM EDT PACE Home Care / PACE Home Visit Emilee MAHONEY [facility] [address] [place] [phone] My Phillips 01/10/2025 9:30 AM EDT PACE Home Care / PACE Home Visit Emilee MAHONEY [facility] [address] [place] [phone] Merlin Forbes 01/10/2025 10:00 AM EDT Clinical Support Emilee MAHONEY [place] 200 [place] [address] 01/10/2025 6:00 PM EDT PACE Home Care / PACE Home Visit Emilee MAHONEY [facility] [address] [place] [address] My Phillips 01/13/2025 9:30 AM EDT PACE Home Care / PACE Home Visit Emilee MAHONEY [facility] [address] [place] [address] Merlin Forbes 01/13/2025 6:00 PM EDT PACE Home Care / PACE Home Visit Emilee MAHONEY [facility] [address] [place] [address] My Phillips 01/14/2025 7:00 AM EDT Clinical Support [facility] [address] [place] [phone] Nkechi Grajeda RN 01/14/2025 9:30 AM EDT PACE Home Care / PACE Home Visit Emilee MAHONEY [facility] [address] [place] [phone] Merlin Forbes 01/14/2025 6:00 PM EDT PACE Home Care / PACE Home Visit Emilee MAHONEY [facility] [address] [place] [phone] My Phillips 01/15/2025 10:00 AM EDT PACE Home Care / PACE Home Visit Emilee MAHONE[facility] [address] [place] [address] Merlin Forbes 01/15/2025 6:00 PM EDT PACE Home Care / PACE Home Visit Emilee [facility] [address] [place] [address] My Phillips 01/16/2025 10:30 AM EDT PACE Home Care / PACE Home Visit Emilee [facility]ONE[facility] [address] [place] [address] Merlin Forbes 01/16/2025 6:00 PM EDT PACE Home Care / PACE Home Visit Emilee MAHONEY [facility] [address] [place] [phone] My Phillips 01/17/2025 9:30 AM EDT PACE Home Care / PACE Home Visit Emilee MAHONEY [facility] [address] [place] [phone] Merlin Forbes 01/17/2025 6:00 PM EDT PACE Home Care / PACE Home Visit Emilee MAHONEY [facility] [address] [place] [phone] My Phillips 01/18/2025 8:30 AM EDT PACE Home Care / PACE Home Visit Emilee MAHONEY [facility] [address] [place] [phone] Anabelle Valdez 01/19/2025 8:30 AM EST PACE Home Care / PACE Home Visit Emilee MAHONE[facility] [address] [place] [phone] Anabelle Valdez 01/20/2025 9:30 AM EST PACE Home Care / PACE Home Visit Emilee MAHONEY [facility] [address] [place] [phone] Merlin Forbes 01/20/2025 6:00 PM EST PACE Home Care / PACE Home Visit Emilee MAHONEY [facility] [address] [place] [phone] My Phillips 01/21/2025 7:00 AM EST Clinical Support [facility] [address] [place] [phone] Nkechi Grajeda RN 01/21/2025 9:30 AM EST PACE Home Care / PACE Home Visit Emilee MA[facility]ONE[facility] [address] [place] [address] Merlin Forbes 01/21/2025 10:45 AM EST Clinical Support Emilee MAHONEY [place] 200 [place] [address] 01/21/2025 6:00 PM EST PACE Home Care / PACE Home Visit Emilee MAHONEY [facility] [address] [place] [address] My Phillips 01/22/2025 10:00 AM EST PACE Home Care / PACE Home Visit Emilee MAHONE[facility] [address] [place] [address] Merlin Forbes 01/22/2025 6:00 PM EST PACE Home Care / PACE Home Visit Emilee MAHONEY [facility] [address] [place] [address] My Phillips 01/23/2025 10:30 AM EST PACE Home Care / PACE Home Visit Emilee MAHONEY [facility] [address] [place] [phone] Merlin Forbes 01/23/2025 6:00 PM EST PACE Home Care / PACE Home Visit Emilee MAHONEY [facility] [address] [place] [phone] My Phillips 01/24/2025 9:30 AM EST PACE Home Care / PACE Home Visit Emilee MA[facility] [address] [place] [address] Merlin Forbes 01/24/2025 6:00 PM EST PACE Home Care / PACE Home Visit Emilee MAHONEY [facility] [address] [place] [phone] My Phillips 01/27/2025 9:30 AM EST PACE Home Care / PACE Home Visit Emilee MAHONEY [facility] [address] [place] [address] Merlin Forbes 01/27/2025 6:00 PM EST PACE Home Care / PACE Home Visit Emilee MAH[facility]Y [facility] [address] [place] [address] My Phillips 01/28/2025 7:00 AM EST Clinical Support [facility] [place] [facility] [address] [place] [address] Nkechi Grajeda RN 01/28/2025 9:30 AM EST PACE Home Care / PACE Home Visit Emilee [facility] [address] [place] [phone] Merlin Forbes 01/28/2025 6:00 PM EST PACE Home Care / PACE Home Visit Emilee MAHONEY [facility] [address] [place] [phone] My Phillips 01/29/2025 10:00 AM EST PACE Home Care / PACE Home Visit Emilee MAH[facility] [address] [place] [phone] Merlin Forbes 01/29/2025 6:00 PM EST PACE Home Care / PACE Home Visit Emilee MAHONEY [facility] [address] [place] [phone] My Phillips 01/30/2025 10:30 AM EST PACE Home Care / PACE Home Visit Emilee MAH[facility] [address] [place] [phone] Merlin Forbes 01/30/2025 6:00 PM EST PACE Home Care / PACE Home Visit Emilee MAHONEY [facility] [address] [place] [phone] My hPillips 01/31/2025 9:30 AM EST PACE Home Care / PACE Home Visit Emilee MAHONEY [facility] [address] [place] [address] Merlin Forbes 01/31/2025 11:00 AM EST PACE External Visit Emiele MAHONEY [place] 200 [place] [address] 01/31/2025 6:00 PM EST PACE Home Care / PACE Home Visit Emilee MAHONEY [facility] [address] [place] [phone] My Phillips 02/01/2025 8:30 AM EST PACE Home Care / PACE Home Visit Emilee MAH[facility] [address] [place] [phone] Anabelle Valdez 02/02/2025 8:30 AM EST PACE Home Care / PACE Home Visit Emilee MAH[facility] [address] [place] [phone] Anabelle Valdez 02/03/2025 9:30 AM EST PACE Home Care / PACE Home Visit Emilee MAH[facility] [address] [place] [phone] Merlin Forbes 02/03/2025 6:00 PM EST PACE Home Care / PACE Home Visit Emilee MAHONEY [facility] [address] [place] [phone] My Phillips 02/04/2025 7:00 AM EST [facility] Support [facility] [address] [place] [phone] Nkechi Grajeda, EDD 02/04/2025 8:15 AM EST Clinical Support [facility] [place] [facility] [address] [place] [phone] Nkechi Grajeda, EDD 02/04/2025 9:30 AM EST PACE Home Care / PACE Home Visit Emilee MAH[facility]Y [facility] [address] [place] [phone] Leatha Forbes-Jennifer 02/04/2025 6:00 PM EST PACE Home Care / PACE Home Visit Emilee MAHONEY [facility] [address] [place] [phone] My Phillips 02/05/2025 10:00 AM EST PACE Home Care / PACE Home Visit Emilee MA[facility] [address] [place] [phone] Leatha Forbes-Jennifer 02/05/2025 6:00 PM EST PACE Home Care / PACE Home Visit Emilee MAH[facility] [address] [place] [phone] My Phillips 02/06/2025 10:30 AM EST PACE Home Care / PACE Home Visit Emilee MAH[facility] [address] [place] [phone] Leatha Forbes-Jennifer 02/06/2025 6:00 PM EST PACE Home Care / PACE Home Visit Emilee MA[facility]Y [facility] [address] [place] [phone] My Phillips 02/07/2025 9:30 AM EST PACE Home Care / PACE Home Visit Emilee MA[facility]Y [facility] [address] [place] [phone] Leatha Forbes-Jennifer 02/07/2025 6:00 PM EST PACE Home Care / PACE Home Visit [facility] [address] [place] [phone] My Phillips 02/10/2025 9:30 AM EST PACE Home Care / PACE Home Visit [facility] [address] [place] [phone] Leatha Forbes-Jennifer 02/10/2025 6:00 PM EST PACE Home Care / PACE Home Visit Emilee MAHONEY [facility] [address] [place] [phone] My Phillips 02/11/2025 7:00 AM EST Clinical Support [facility] [place] [facility] [address] [place] [address] Nkechi Grajeda, EDD 02/11/2025 9:30 AM EST PACE Home Care / PACE Home Visit Em[facility] [address] [place] [phone] Merlin Forbes 02/11/2025 6:00 PM EST PACE Home Care / PACE Home Visit Em[facility] [address] [place] [phone] My Phillips 02/12/2025 10:00 AM EST PACE Home Care / PACE Home Visit Em[facility] [address] [place] [phone] Merlin Forbes 02/12/2025 6:00 PM EST PACE Home Care / PACE Home Visit Emilee [facility] [address] [place] [phone] My Phillips 02/13/2025 10:30 AM EST PACE Home Care / PACE Home Visit Em[facility] [address] [place] [phone] Merlin Forbes 02/13/2025 6:00 PM EST PACE Home Care / PACE Home Visit Emilee [facility] [address] [place] [phone] My Phillips 02/18/2025 7:00 AM EST Clinical Support [facility] [place] [facility] [address] [place] [address] Nkechi Grajeda, EDD 02/25/2025 7:00 AM EST Clinical Support [facility] [address] [place] [phone] Nkechi Grajeda, EDD 02/27/2025 10:40 AM EST Clinical Support [facility] [address] [place] [phone] 03/04/2025 7:00 AM EST Clinical Support [facility] [place] [facility] [address] [address] Nkechi Grajeda, EDD 03/04/2025 8:15 AM EST Clinical Support [facility] [place] [facility] [address] [phone] Nkechi Grajeda, EDD 03/11/2025 7:00 AM EST Clinical Support [facility] [place] [facility] [address] [phone] Nkechi Grajeda, EDD 03/18/2025 7:00 AM EST Clinical Support [facility] [place] [facility] [address] [phone] Nkechi Grajeda, EDD 03/25/2025 7:00 AM EST Clinical Support [facility] [place] [facility] [address] [phone] Nkechi Grajeda, EDD 04/01/2025 7:00 AM EST Clinical Support [facility] [place] [facility] [address] [phone] Nkechi Grajeda, EDD 04/01/2025 8:15 AM EST Clinical Support [facility] [address] [place] [phone] Nkechi Grajeda, EDD 04/08/2025 7:00 AM EST Clinical Support [facility] [address] [place] [phone] Nkechi Grajeda, EDD 04/14/2025 9:25 AM EST Office Visit [facility] [address] [facility] 154 [place] [address] Dillon Mendosa MD [address] [place] [address] [place] [phone] 04/15/2025 7:00 AM EST Clinical Support [facility] [place] [facility] [address] [phone] Nkechi Grajeda, EDD 04/22/2025 7:00 AM EST Clinical Support [facility] [place] [facility] [address] [phone] Nkechi Grajeda, EDD 04/29/2025 7:00 AM EST Clinical Support [facility] [place] [facility] [address] [phone] Nkechi Grajeda, EDD 04/29/2025 8:15 AM EST Clinical Support [facility] [place] [facility] [address] [phone] Nkechi Grajeda, EDD 05/06/2025 7:00 AM EST Clinical Support [facility] [place] [facility] [address] [address] Nkechi Grajeda, EDD 05/13/2025 7:00 AM EST Clinical Support [facility] [place] [facility] [address] [address] Nkechi Grajeda, EDD 05/20/2025 7:00 AM EST Clinical Support [facility] [place] [facility] [address] [phone] Nkechi Grajeda, EDD 05/27/2025 7:00 AM EDT Clinical Support [facility] [place] [facility] [address] [phone] Nkechi Grajeda, EDD 05/27/2025 8:15 AM EDT Clinical Support [facility] [address] [phone] Nkechi Grajeda, RN 06/03/2025 7:00 AM EDT Clinical Support [facility] [address] [place] [phone] Nkechi Grajeda, RN 06/10/2025 7:00 AM EDT Clinical Support [facility] [address] [place] [phone] Nkechi Grajeda, RN 06/17/2025 7:00 AM EDT Clinical Support [facility] [address] [place] [phone] Nkechi Grajeda, EDD 06/24/2025 7:00 AM EDT Clinical Support [facility] [address] [place] [phone] Nkechi Grajeda, EDD 06/24/2025 8:15 AM EDT Clinical Support [facility] [place] [facility] [address] [phone] Nkechi Grajeda, EDD 07/01/2025 7:00 AM EDT Clinical Support [facility] [address] [place] [phone] Nkechi Grajeda, EDD 07/08/2025 7:00 AM EDT Clinical Support [facility] [address] [place] [phone] Nkechi Grajeda, RN 07/15/2025 7:00 AM EDT Clinical Support [facility] [address] [place] [phone] Nkechi Grajeda, RN 07/22/2025 8:15 AM EDT Clinical Support [facility] [address] [place] [phone] Nkechi Grajeda, RN 08/19/2025 8:15 AM EDT Clinical Support [facility] [address] [place] [phone] Nkechi Grajeda, RN 09/16/2025 8:15 AM EDT Clinical Support [address] [address] Nkechi Grajeda RN 10/14/2025 8:15 AM EDT Clinical Support [address] [phone] Nkechi Grajeda RN 11/11/2025 8:15 AM EDT Clinical Support [address] [phone] Nkechi Grajeda RN 12/09/2025 8:15 AM EDT Clinical Support [address] [phone] Nkechi Grajeda, RN documented as of this encounter Visit Diagnoses Not on filedocumented in this encounter Additional Health Concerns Assessment Noted Time PHQ-9 Depression Total Score: 20 025 12:16 PM EDT documented as of this encounter Care Teams Derrick Worker Relationship Specialty Start Date End Date Deloris Tobias NP [address] [place] [phone] PCP - General Family Medicine 12/01/24 documented as of this encounter
--- OUTSIDE RECORDS SUMMARY | 2024-12-12 18:00 | XMS_ITS | Encounter Summary ---
Author Organization [facility] Address [address] [place] [address] Care Team Providers Care Stitcher Operator Name Role Phone Deloris Tobias LATH HAND Primary Care Provider [phone] Encounter Details Date Type Department Care Team (Late st Contact Info) Description 12/12/2024 6:00 PM EDT PACE Home Care / PACE Home Visit Emilee MAHONEY [facility] [address] [place] [phone] My [facility] Social History Tobacco Use Types [...] [place] [facility] [address] [place] [phone] Merlin Forbes 12/16/2024 11:00 AM EDT Office Visit [facility] [address] [place] [address] Deloris Tobias, JOHNATHAN [address] [address] 12/16/2024 6:00 PM EDT PACE Home Care / PACE Home Visit Emilee MAHONEY [facility] [address] [place] [phone] My [facility] 12/17/2024 7:00 AM EDT Clinical Support [facility] [address] [place] [phone] Nkechi Grajeda RN 12/17/2024 9:30 AM EDT PACE Home Care / PACE Home Visit Emilee MAHONEY [facility] [address] [place] [phone] Merlin Forbes 12/17/2024 11:00 AM EDT Treatment Emilee MAHONEY MA Occupational Therapy [address] [place] [phone] Tyler Ling OT 12/17/2024 6:00 PM EDT PACE Home Care / PACE Home Visit Emilee MAHONEY [facility] [address] [place] [phone] My Phillips 12/18/2024 10:00 AM EDT PACE Home Care / PACE Home Visit Emilee MAHONEY [facility] [address] [place] [phone] Merlin Forbes 12/18/2024 6:00 PM EDT PACE Home Care / PACE Home Visit [facility] [place] [facility] [address] [place] [phone] My Phillips 12/19/2024 10:30 AM EDT PACE Home Care / PACE Home Visit Emilee MAHONEY [facility] [address] [place] [phone] Merlin Forbes 12/19/2024 6:00 PM EDT PACE Home Care / PACE Home Visit Emilee MAHONEY [facility] [address] [place] [phone] My Phillips 12/20/2024 9:00 AM EDT Appointment [address] [phone] 12/20/2024 9:30 AM EDT PACE Home Care / PACE Home Visit Emilee MAHONEY [facility] [address] [place] [phone] Merlin Forbes 12/20/2024 6:00 PM EDT PACE Home Care / PACE Home Visit Emilee MHAONEY [facility] [address] [place] [phone] My Phillips 12/21/2024 8:30 AM EDT PACE Home Care / PACE Home Visit Emilee MAHONEY [facility] [address] [place] [phone] Anabelle Valdez 12/22/2024 8:30 AM EDT PACE Home Care / PACE Home Visit Emilee MAHONEY [facility] [address] [place] [phone] Anabelle Valdez 12/23/2024 9:30 AM EDT PACE Home Care / PACE Home Visit Emilee MAHONEY [facility] [address] [place] [phone] Merlin Forbes 12/23/2024 6:00 PM EDT PACE Home Care / PACE Home Visit Emilee MAHONEY [facility] [address] [place] [phone] My [facility] 12/24/2024 7:00 AM EDT Clinical Support [facility] [place] [facility] [address] [place] [address] Nkechi Grajeda RN 12/24/2024 9:30 AM EDT PACE Home Care / PACE Home Visit Emilee MAHONEY [facility] [address] [place] [phone] Merlin Forbes 12/24/2024 6:00 PM EDT PACE Home Care / PACE Home Visit Emilee MAHONEY [facility] [address] [place] [phone] My Phillips 12/25/2024 10:00 AM EDT PACE Home Care / PACE Home Visit Emilee MAHONEY [facility] [address] [place] [phone] Merlin Forbes 12/25/2024 6:00 PM EDT PACE Home Care / PACE Home Visit Emilee MAHONEY [facility] [address] [place] [phone] My Phillips 12/26/2024 10:40 AM EDT Clinical Support Emilee MAOHNEY MA [address] [place] [phone] 12/26/2024 6:00 PM EDT PACE Home Care / PACE Home Visit Emilee MAHONEY [facility] [address] [place] [phone] My Phillips 12/27/2024 9:30 AM EDT PACE Home Care / PACE Home Visit Emilee MAHONEY [facility] [address] [place] [phone] Merlin Forbes 12/27/2024 6:00 PM EDT PACE Home Care / PACE Home Visit Emilee MAHONEY [facility] [address] [place] [address] My Phillips 12/30/2024 9:30 AM EDT PACE Home Care / PACE Home Visit Emilee AMHONEY [facility] [address] [place] [address] Merlin Forbes 12/30/2024 6:00 PM EDT PACE Home Care / PACE Home Visit Emilee MAHONEY [facility] [address] [place] [address] My Phillips 12/31/2024 7:00 AM EDT Clinical Support [facility] [place] [facility] [address] [place] [address] Nkechi Grajeda RN 12/31/2024 9:30 AM EDT PACE Home Care / PACE Home Visit Emilee MAHONEY [facility] [address] [place] [address] Merlin Forbes 12/31/2024 10:00 [address] EDT [address] [facility] [address] [place] [address] 12/31/2024 6:00 PM EDT PACE Home Care / PACE Home Visit Emilee MAHONEY [facility] [address] [place] [address] My Phillips 01/01/2025 10:00 AM EDT PACE Home Care / PACE Home Visit Emilee MAHONEY [facility] [address] [place] [address] Merlin Forbes 01/01/2025 6:00 PM EDT PACE Home Care / PACE Home Visit Emilee MAHONEY [facility] [address] [place] [address] My Phillips 01/02/2025 10:30 AM EDT PACE Home Care / PACE Home Visit Emilee MAHONEY [facility] [address] [place] [address] Merlin Forbes 01/02/2025 3:00 PM EDT Clinical Support Emilee MAHONEY MA [address] [place] [address] 01/02/2025 6:00 PM EDT PACE Home Care / PACE Home Visit Emilee MAHONEY [facility] [address] [place] [phone] My Phillips 01/03/2025 9:30 AM EDT PACE Home Care / PACE Home Visit Emilee MAHONEY [facility] [address] [place] [phone] Merlin Forbes 01/03/2025 6:00 PM EDT PACE Home Care / PACE Home Visit Emilee MAHONEY [facility] [address] [place] [phone] My Phillips 01/04/2025 8:30 AM EDT PACE Home Care / PACE Home Visit Emilee MAHONEY [facility] [address] [place] [phone] Anabelle Valdez 01/05/2025 8:30 AM EDT PACE Home Care / PACE Home Visit Emilee MAHONEY [facility] [address] [place] [phone] Anabelle Valdez 01/06/2025 9:30 AM EDT PACE Home Care / PACE Home Visit Emilee MAHONEY [facility] [address] [place] [phone] Merlin Forbes 01/06/2025 6:00 PM EDT PACE Home Care / PACE Home Visit Emilee MAHONEY [facility] [address] [place] [phone] My [facility] 01/07/2025 7:00 AM EDT Clinical Support [facility] [address] [place] [phone] Nkechi Grajeda, EDD 01/07/2025 8:15 AM EDT Clinical Support [facility] [place] [facility] [address] [place] [address] Nkechi Grajeda RN 01/07/2025 9:30 AM EDT PACE Home Care / PACE Home Visit Emilee MAHONEY [facility] [address] [place] [address] Merlin Forbes 01/07/2025 6:00 PM EDT PACE Home Care / PACE Home Visit Emilee MAHONEY [facility] [address] [place] [phone] My Phillips 01/08/2025 10:00 AM EDT PACE Home Care / PACE Home Visit Emilee MAHONEY [facility] [address] [place] [phone] Merlin Forbes 01/08/2025 6:00 PM EDT PACE Home Care / PACE Home Visit Emilee MAHONEY [facility] [address] [place] [phone] My Phillips 01/09/2025 10:30 AM EDT PACE Home Care / PACE Home Visit Emilee MAHONEY [facility] [address] [place] [address] Merlin Forbes 01/09/2025 6:00 PM EDT PACE Home Care / PACE Home Visit Emilee MAHONEY [facility] [address] [place] [address] My Phillips 01/10/2025 9:30 AM EDT PACE Home Care / PACE Home Visit Emilee MAHONEY [facility] [address] [place] [address] Merlin Forbes 01/10/2025 10:00 AM EDT Clinical Support Emilee MAHONEY MA [address] [place] [address] 01/10/2025 6:00 PM EDT PACE Home Care / PACE Home Visit Emilee MAHONEY [facility] [address] [place] [address] My Phillips 01/13/2025 9:30 AM EDT PACE Home Care / PACE Home Visit Emilee MAHONEY [facility] [address] [place] [address] Merlin Forbes 01/13/2025 6:00 PM EDT PACE Home Care / PACE Home Visit Emilee MAHONEY [facility] [address] [place] [address] My Phillips 01/14/2025 7:00 AM EDT Clinical Support [facility] [place] [facility] [address] [place] [address] Nkechi Grajeda RN 01/14/2025 9:30 AM EDT PACE Home Care / PACE Home Visit Emilee MAHONEY [facility] [address] [place] [phone] Merlin Forbes 01/14/2025 6:00 PM EDT PACE Home Care / PACE Home Visit Emilee MAHONEY [facility] [address] [place] [address] My Phillips 01/15/2025 10:00 AM EDT PACE Home Care / PACE Home Visit Emilee MAHONEY [facility] [address] [place] [address] Merlin Forbes 01/15/2025 6:00 PM EDT PACE Home Care / PACE Home Visit Emilee MAHONEY [facility] [address] [place] [address] My Phillips 01/16/2025 10:30 AM EDT PACE Home Care / PACE Home Visit Emilee MAHONEY [facility] [address] [place] [address] Merlin Forbes 01/16/2025 6:00 PM EDT PACE Home Care / PACE Home Visit Emilee MAHONEY [facility] [address] [place] [address] My Phillips 01/17/2025 9:30 AM EDT PACE Home Care / PACE Home Visit Emilee MAHONEY [facility] [address] [place] [phone] Merlin Forbes 01/17/2025 6:00 PM EDT PACE Home Care / PACE Home Visit Emilee MAHONEY [facility] [address] [place] [phone] My Phillips 01/18/2025 8:30 AM EDT PACE Home Care / PACE Home Visit Emilee MAHONEY [facility] [address] [place] [phone] Anabelle Valdez 01/19/2025 8:30 AM EST PACE Home Care / PACE Home Visit Emilee MAHONEY [facility] [address] [place] [phone] Anabelle Valdez 01/20/2025 9:30 AM EST PACE Home Care / PACE Home Visit Emilee MAHONEY [facility] [address] [place] [phone] Merlin Forbes 01/20/2025 6:00 PM EST PACE Home Care / PACE Home Visit Emilee MAHONEY [facility] [address] [place] [phone] My [facility] 01/21/2025 7:00 AM EST Clinical Support [facility] [place] [facility] [address] [place] [phone] Nkechi Grajeda RN 01/21/2025 9:30 AM EST PACE Home Care / PACE Home Visit Emilee MAHONEY [facility] [address] [place] [address] Merlin Forbes 01/21/2025 10:45 AM EST Clinical Support Emilee MAHONEY MA [address] [place] [address] 01/21/2025 6:00 PM EST PACE Home Care / PACE Home Visit Emilee MAHONEY [facility] [address] [place] [address] My Phillips 01/22/2025 10:00 AM EST PACE Home Care / PACE Home Visit Emilee MAHONEY [facility] [address] [place] [address] Merlin Forbes 01/22/2025 6:00 PM EST PACE Home Care / PACE Home Visit Emilee MAHONEY [facility] [address] [place] [phone] My Phillips 01/23/2025 10:30 AM EST PACE Home Care / PACE Home Visit Emilee MAHONEY [facility] [address] [place] [phone] Merlin Forbes 01/23/2025 6:00 PM EST PACE Home Care / PACE Home Visit Emilee MAHONEY [facility] [address] [place] [phone] My Phillips 01/24/2025 9:30 AM EST PACE Home Care / PACE Home Visit Emilee MAHONEY [facility] [address] [place] [address] Merlin Forbes 01/24/2025 6:00 PM EST PACE Home Care / PACE Home Visit Emilee MAHONEY [facility] [address] [place] [address] My Phillips 01/27/2025 9:30 AM EST PACE Home Care / PACE Home Visit Emilee MAHONEY [facility] [address] [place] [address] Merlin Forbes 01/27/2025 6:00 PM EST PACE Home Care / PACE Home Visit Emilee MAHONEY [facility] [address] [place] [address] My Phillips 01/28/2025 7:00 AM EST Clinical Support [facility] [address] [place] [address] Nkechi Grajeda RN 01/28/2025 9:30 AM EST PACE Home Care / PACE Home Visit Emilee MAHONEY [facility] [address] [place] [phone] Merlin Forbes 01/28/2025 6:00 PM EST PACE Home Care / PACE Home Visit Emilee MAHONEY [facility] [address] [place] [phone] My Phillips 01/29/2025 10:00 AM EST PACE Home Care / PACE Home Visit Emilee MAHONEY [facility] [address] [place] [phone] Merlin Forbes 01/29/2025 6:00 PM EST PACE Home Care / PACE Home Visit Emilee MAHONEY [facility] [address] [place] [phone] My Phillips 01/30/2025 10:30 AM EST PACE Home Care / PACE Home Visit Emilee MAHONEY [facility] [address] [place] [phone] Merlin Forbes 01/30/2025 6:00 PM EST PACE Home Care / PACE Home Visit Emilee MAHONEY [facility] [address] [place] [phone] My Phillips 01/31/2025 9:30 AM EST PACE Home Care / PACE Home Visit Emilee MAHONEY [facility] [address] [place] [address] Merlin Forbes 01/31/2025 11:00 AM EST PACE External Visit Emilee MAHONEY MA [address] [place] [address] 01/31/2025 6:00 PM EST PACE Home Care / PACE Home Visit Emilee MAHONEY [facility] [address] [place] [phone] My Phillips 02/01/2025 8:30 AM EST PACE Home Care / PACE Home Visit Emilee MAHONEY [facility] [address] [place] [phone] Anabelle Valdez 02/02/2025 8:30 AM EST PACE Home Care / PACE Home Visit Emilee MAHONEY [facility] [address] [place] [phone] Anabelle Valdez 02/03/2025 9:30 AM EST PACE Home Care / PACE Home Visit Emilee MAHONEY [facility] [address] [place] [phone] Merlin Forbes 02/03/2025 6:00 PM EST PACE Home Care / PACE Home Visit Emilee MAHONEY [facility] [address] [place] [phone] My Phillips 02/04/2025 7:00 AM EST Clinical Support [facility] [place] [facility] [address] [place] [phone] Nkechi Grajeda, EDD 02/04/2025 8:15 AM EST Clinical Support [facility] [place] [facility] [address] [place] [phone] Nkechi Grajeda, EDD 02/04/2025 9:30 AM EST PACE Home Care / PACE Home Visit Emilee MAHONEY [facility] [address] [place] [phone] Merlin Forbes 02/04/2025 6:00 PM EST PACE Home Care / PACE Home Visit Emilee MAHONEY [facility] [address] [place] [phone] My Phillips 02/05/2025 10:00 AM EST PACE Home Care / PACE Home Visit [facility] [place] [facility] [address] [place] [phone] Leatha Forbes-Jennifer 02/05/2025 6:00 PM EST PACE Home Care / PACE Home Visit Emilee MAHONEY [facility] [address] [place] [phone] My Phillips 02/06/2025 10:30 AM EST PACE Home Care / PACE Home Visit [facility] [place] [facility] [address] [place] [phone] Leatha Forbes-Jennifer 02/06/2025 6:00 PM EST PACE Home Care / PACE Home Visit [facility] [place] [facility] [address] [place] [phone] My Phillips 02/07/2025 9:30 AM EST PACE Home Care / PACE Home Visit [facility] [place] [facility] [address] [place] [phone] Merlin Forbes 02/07/2025 6:00 PM EST PACE Home Care / PACE Home Visit [facility] [place] [facility] [address] [place] [phone] My Phillips 02/10/2025 9:30 AM EST PACE Home Care / PACE Home Visit [facility] [place] [facility] [address] [place] [phone] Merlin Forbes 02/10/2025 6:00 PM EST PACE Home Care / PACE Home Visit Emilee MAHONEY [facility] [address] [place] [phone] My Phillips 02/11/2025 7:00 AM EST Clinical Support [facility] [place] [facility] [address] [place] [phone] Nkechi Grajeda, EDD 02/11/2025 9:30 AM EST PACE Home Care / PACE Home Visit Emilee MA[facility]ONEY [facility] [address] [place] [phone] Merlin Forbes 02/11/2025 6:00 PM EST PACE Home Care / PACE Home Visit Emilee MAHONEY [facility] [address] [place] [phone] My Phillips 02/12/2025 10:00 AM EST PACE Home Care / PACE Home Visit Emilee MAHONEY [facility] [address] [place] [phone] Merlin Forbes 02/12/2025 6:00 PM EST PACE Home Care / PACE Home Visit Emilee MAHONEY [facility] [address] [place] [phone] My Phillips 02/13/2025 10:30 AM EST PACE Home Care / PACE Home Visit Emilee MAHONEY [facility] [address] [place] [phone] Merlin Forbes 02/13/2025 6:00 PM EST PACE Home Care / PACE Home Visit Emilee MAHONEY [facility] [address] [place] [phone] My Phillips 02/18/2025 7:00 AM EST Clinical Support [facility] [place] [facility] [address] [place] [address] Nkechi Grajeda, EDD 02/25/2025 7:00 AM EST Clinical Support [facility] [place] [address] [address] Nkechi Grajeda, EDD 02/27/2025 10:40 AM EST Clinical Support [facility] [place] [address] [place] [phone] 03/04/2025 7:00 AM EST Clinical Support [facility] [place] [address] [address] Nkechi Grajeda, EDD 03/04/2025 8:15 AM EST Clinical Support [facility] [place] [address] [address] Nkechi Grajeda, EDD 03/11/2025 7:00 AM EST Clinical Support [facility] [place] [address] [address] Nkechi Grajeda, EDD 03/18/2025 7:00 AM EST Clinical Support [facility] [place] [address] [address] Nkechi Grajeda, EDD 03/25/2025 7:00 AM EST Clinical Support [facility] [place] [address] [address] Nkechi Grajeda, EDD 04/01/2025 7:00 AM EST Clinical Support [facility] [place] [address] [address] Nkechi Grajeda, EDD 04/01/2025 8:15 AM EST Clinical Support [facility] [place] [facility] [address] [place] [phone] Nkechi Grajeda, EDD 04/08/2025 7:00 AM EST Clinical Support [facility] [place] [address] [address] Nkechi Grajeda, EDD 04/14/2025 9:25 AM EST Office Visit [facility] [address] [facility] [address] [place] [address] Dillon Mendosa MD [address] [place] [address] [place] [address] 04/15/2025 7:00 AM EST Clinical Support [facility] [place] [address] [address] Nkechi Grajeda, EDD 04/22/2025 7:00 AM EST Clinical Support [facility] [place] [address] [address] Nkechi Grajeda, EDD 04/29/2025 7:00 AM EST Clinical Support [facility] [place] [address] [address] Nkechi Grajeda, EDD 04/29/2025 8:15 AM EST Clinical Support [facility] [place] [address] [address] Nkechi Grajeda, EDD 05/06/2025 7:00 AM EST Clinical Support [facility] [place] [address] [address] Nkechi Grajeda, EDD 05/13/2025 7:00 AM EST Clinical Support [facility] [place] [address] [address] Nkechi Grajeda, EDD 05/20/2025 7:00 AM EST Clinical Support [facility] [place] [address] [address] Nkechi Grajeda, EDD 05/27/2025 7:00 AM EDT Clinical Support [facility] [place] [facility] [address] [address] Nkechi Grajeda, EDD 05/27/2025 8:15 AM EDT Clinical Support [facility] [place] [address] [address] Nkechi Grajeda, EDD 06/03/2025 7:00 AM EDT Clinical Support [facility] [place] [facility] [address] [place] [phone] Nkechi Grajeda, EDD 06/10/2025 7:00 AM EDT Clinical Support [facility] [place] [facility] [address] [place] [phone] Nkechi Grajeda, RN 06/17/2025 7:00 AM EDT Clinical Support [facility] [place] [facility] [address] [place] [phone] Nkechi Grajeda, EDD 06/24/2025 7:00 AM EDT Clinical Support [facility] [place] [facility] [address] [place] [phone] Nkechi Grajeda, EDD 06/24/2025 8:15 AM EDT Clinical Support [facility] [place] [address] [address] Nkechi Grajeda, EDD 07/01/2025 7:00 AM EDT Clinical Support [facility] [place] [facility] [address] [place] [phone] Nkechi Grajeda, EDD 07/08/2025 7:00 AM EDT Clinical Support [facility] [place] [facility] [address] [place] [phone] Nkechi Grajeda, RN 07/15/2025 7:00 AM EDT Clinical Support [facility] [place] [facility] [address] [place] [phone] Nkechi Grajeda, RN 07/22/2025 8:15 AM EDT Clinical Support [facility] [place] [facility] [address] [place] [phone] Nkechi Grajeda, RN 08/19/2025 8:15 AM EDT Clinical Support [facility] [place] [facility] [address] [place] [phone] Nkechi Grajeda, EDD 09/16/2025 8:15 AM EDT Clinical Support [address] [address] Nkechi Grajeda RN 10/14/2025 8:15 AM EDT Clinical Support [address] [address] Nkechi Grajeda RN 11/11/2025 8:15 AM EDT Clinical Support [address] [address] Nkechi Grajeda RN 12/09/2025 8:15 AM EDT Clinical Support [address] [address] Nkechi Grajeda, RN documented as of this encounter Visit Diagnoses Not on filedocumented in this encounter Additional Health Concerns Assessment Noted Time PHQ-9 Depression Total Score: 20 025 12:16 PM EDT documented as of this encounter Care Teams Stitcher Operator Relationship Specialty Start Date End Date Deloris Tobias NP [address] [place] [phone] PCP - General Family Medicine 12/01/24 documented as of this encounter
--- OUTSIDE RECORDS SUMMARY | 2024-12-13 09:30 | XMS_ITS | Encounter Summary ---
Author Organization [facility] Address [address] [place] [address] Care Team Providers Care Skelp Processor Name Role Phone Deloris Tobias ST[employer] LASTER Primary Care Provider [phone] Encounter Details Date Type Department Care Team (Late st Contact Info) Description 12/13/2024 9:30 AM EDT PACE Home Care / PACE Home Visit Emilee [facility]HONEY [facility] [address] [place] [phone] Merlin Forbes Social History Tobacco Use Types [...] [facility] [address] [place] [phone] Merlin Forbes 12/16/2024 11:00 AM EDT Office Visit [facility] [address] [place] [address] Deloris Tobias, JOHNATHAN [address] [address] 12/16/2024 6:00 PM EDT PACE Home Care / PACE Home Visit Emilee MAHONEY [facility] [address] [place] [phone] My Phillips 12/17/2024 7:00 AM EDT Clinical Support [facility] [address] [place] [phone] Nkechi Grajeda RN 12/17/2024 9:30 AM EDT PACE Home Care / PACE Home Visit Emilee [facility]ONEY [facility] [address] [place] [phone] Merlin Forbes 12/17/2024 11:00 AM EDT Treatment Emilee MAHONEY MA Occupational Therapy [address] [place] [phone] Tyler Ling OT 12/17/2024 6:00 PM EDT PACE Home Care / PACE Home Visit Emilee MAHONEY [facility] [address] [place] [phone] My Phillips 12/18/2024 10:00 AM EDT PACE Home Care / PACE Home Visit Emilee MAHONEY [facility] [address] [place] [phone] Merlin Forbes 12/18/2024 6:00 PM EDT PACE Home Care / PACE Home Visit Emilee MAHONEY [facility] [address] [place] [phone] My Phillips 12/19/2024 10:30 AM EDT PACE Home Care / PACE Home Visit Emilee MAHONEY [facility] [address] [place] [phone] Merlin Forbes 12/19/2024 6:00 PM EDT PACE Home Care / PACE Home Visit Emilee MAHONEY [facility] [address] [place] [phone] My Phillips 12/20/2024 9:00 AM EDT Appointment [address] [phone] 12/20/2024 9:30 AM EDT PACE Home Care / PACE Home Visit Emilee MAHONEY [facility] [address] [place] [phone] Merlin Forbes 12/20/2024 6:00 PM EDT PACE Home Care / PACE Home Visit Emilee MAHONEY [facility] [address] [place] [phone] My Phillips 12/21/2024 8:30 AM EDT PACE Home Care / PACE Home Visit Emilee MAHONEY [facility] [address] [place] [phone] Anabelle Valdez 12/22/2024 8:30 AM EDT PACE Home Care / PACE Home Visit Emilee MAHONEY [facility] [address] [place] [phone] Anabelle Valdez 12/23/2024 9:30 AM EDT PACE Home Care / PACE Home Visit Emilee MAHONEY [facility] [address] [place] [phone] Merlin Forbes 12/23/2024 6:00 PM EDT PACE Home Care / PACE Home Visit Emilee MAHONEY [facility] [address] [place] [address] My Phillips 12/24/2024 7:00 AM EDT Clinical Support [facility] [address] [place] [address] Nkechi Grajeda RN 12/24/2024 9:30 AM EDT PACE Home Care / PACE Home Visit Emilee [facility] [address] [place] [address] Merlin Forbes 12/24/2024 6:00 PM EDT PACE Home Care / PACE Home Visit Emilee MAHONEY [facility] [address] [place] [phone] My Phillips 12/25/2024 10:00 AM EDT PACE Home Care / PACE Home Visit Emilee MAHONEY [facility] [address] [place] [phone] Merlin Forbes 12/25/2024 6:00 PM EDT PACE Home Care / PACE Home Visit Emilee MAHONEY [facility] [address] [place] [phone] My Phillips 12/26/2024 10:40 AM EDT Clinical Support Emilee MAHONEY MA [address] [place] [address] 12/26/2024 6:00 PM EDT PACE Home Care / PACE Home Visit Emilee MAHONEY [facility] [address] [place] [phone] My Phillips 12/27/2024 9:30 AM EDT PACE Home Care / PACE Home Visit Emilee MAHONEY [facility] [address] [place] [phone] Merlin Forbes 12/27/2024 6:00 PM EDT PACE Home Care / PACE Home Visit Emilee MAHONEY [facility] [address] [place] [address] My Phillips 12/30/2024 9:30 AM EDT PACE Home Care / PACE Home Visit Emilee MAHONEY [facility] [address] [place] [address] Merlin Forbes 12/30/2024 6:00 PM EDT PACE Home Care / PACE Home Visit Emilee MAHONEY [facility] [address] [place] [address] My Phillips 12/31/2024 7:00 AM EDT Clinical Support [facility] [address] [place] [phone] Nkechi Grajeda RN 12/31/2024 9:30 AM EDT PACE Home Care / PACE Home Visit Emilee MAHONEY [facility] [address] [place] [phone] Merlin Forbes 12/31/2024 10:00 AM EDT Ancillary Procedure [facility] [address] [facility] [address] [place] [address] 12/31/2024 6:00 PM EDT PACE Home Care / PACE Home Visit Emilee MAHONEY [facility] [address] [place] [phone] My Phillips 01/01/2025 10:00 AM EDT PACE Home Care / PACE Home Visit Emilee MAHONEY [facility] [address] [place] [phone] Merlin Forbes 01/01/2025 6:00 PM EDT PACE Home Care / PACE Home Visit Emilee MAHONEY [facility] [address] [place] [address] My Phillips 01/02/2025 10:30 AM EDT PACE Home Care / PACE Home Visit Emilee MAHONEY [facility] [address] [place] [address] Merlin Forbes 01/02/2025 3:00 PM EDT Clinical Support Emilee MAHONEY MA [address] [place] [address] 01/02/2025 6:00 PM EDT PACE Home Care / PACE Home Visit Emilee MAHONEY [facility] [address] [place] [phone] My Phillips 01/03/2025 9:30 AM EDT PACE Home Care / PACE Home Visit Emilee MAHONEY [facility] [address] [place] [phone] Merlin Forbes 01/03/2025 6:00 PM EDT PACE Home Care / PACE Home Visit Emilee MAHONEY [facility] [address] [place] [phone] My Phillips 01/04/2025 8:30 AM EDT PACE Home Care / PACE Home Visit Emilee MAHONEY [facility] [address] [place] [phone] Anabelle Valdez 01/05/2025 8:30 AM EDT PACE Home Care / PACE Home Visit Emilee MAHONEY [facility] [address] [place] [phone] Anabelle Valdez 01/06/2025 9:30 AM EDT PACE Home Care / PACE Home Visit Emilee MAHONEY [facility] [address] [place] [phone] Merlin Forbes 01/06/2025 6:00 PM EDT PACE Home Care / PACE Home Visit Emilee MAHONEY [facility] [address] [place] [address] My Phillips 01/07/2025 7:00 AM EDT Clinical Support [facility] [address] [place] [phone] Nkechi Grajeda, EDD 01/07/2025 8:15 AM EDT Clinical Support [facility] [address] [place] [phone] Nkechi Grajeda, EDD 01/07/2025 9:30 AM EDT PACE Home Care / PACE Home Visit Emilee MAHONEY [facility] [address] [place] [phone] Merlin Forbes 01/07/2025 6:00 PM EDT PACE Home Care / PACE Home Visit Emilee MAHONEY [facility] [address] [place] [phone] My Phillips 01/08/2025 10:00 AM EDT PACE Home Care / PACE Home Visit Emilee MAHONEY [facility] [address] [place] [phone] Merlin Forbes 01/08/2025 6:00 PM EDT PACE Home Care / PACE Home Visit Emilee MAHONEY [facility] [address] [place] [phone] My Phillips 01/09/2025 10:30 AM EDT PACE Home Care / PACE Home Visit Emilee MAHONEY [facility] [address] [place] [phone] Merlin Forbes 01/09/2025 6:00 PM EDT PACE Home Care / PACE Home Visit Emilee MAHONEY [facility] [address] [place] [phone] My Phillips 01/10/2025 9:30 AM EDT PACE Home Care / PACE Home Visit Emilee MAHONEY [facility] [address] [place] [phone] Merlin Forbes 01/10/2025 10:00 AM EDT Clinical Support Emilee MAHONEY MA [address] [place] [address] 01/10/2025 6:00 PM EDT PACE Home Care / PACE Home Visit Emilee MAHONEY [facility] [address] [place] [address] My Phillips 01/13/2025 9:30 AM EDT PACE Home Care / PACE Home Visit Emilee MAHONEY [facility] [address] [place] [address] Merlin Forbes 01/13/2025 6:00 PM EDT PACE Home Care / PACE Home Visit Emilee MAHONEY [facility] [address] [place] [address] My Phillips 01/14/2025 7:00 AM EDT Clinical Support [facility] [address] [place] [phone] Nkechi Grajeda RN 01/14/2025 9:30 AM EDT PACE Home Care / PACE Home Visit Emilee MAHONEY [facility] [address] [place] [phone] Merlin Forbes 01/14/2025 6:00 PM EDT PACE Home Care / PACE Home Visit Emilee MAHONEY [facility] [address] [place] [phone] My Phillips 01/15/2025 10:00 AM EDT PACE Home Care / PACE Home Visit Emilee MAHONEY [facility] [address] [place] [address] Merlin Forbes 01/15/2025 6:00 PM EDT PACE Home Care / PACE Home Visit Emilee MAHONEY [facility] [address] [place] [address] My Phillips 01/16/2025 10:30 AM EDT PACE Home Care / PACE Home Visit Emilee MAHONEY [facility] [address] [place] [address] Merlin Forbes 01/16/2025 6:00 PM EDT PACE Home Care / PACE Home Visit Emilee MAHONEY [facility] [address] [place] [phone] My Phillips 01/17/2025 9:30 AM EDT PACE Home Care / PACE Home Visit Emilee MAHONEY [facility] [address] [place] [phone] Merlin Forbes 01/17/2025 6:00 PM EDT PACE Home Care / PACE Home Visit Emilee MAHONEY [facility] [address] [place] [phone] My Phillips 01/18/2025 8:30 AM EDT PACE Home Care / PACE Home Visit Emilee MAHONEY [facility] [address] [place] [phone] Anabelle Valdez 01/19/2025 8:30 AM EST PACE Home Care / PACE Home Visit Emilee MAHONEY [facility] [address] [place] [phone] Anabelle Valdez 01/20/2025 9:30 AM EST PACE Home Care / PACE Home Visit Emilee MAHONEY [facility] [address] [place] [phone] Merlin Forbes 01/20/2025 6:00 PM EST PACE Home Care / PACE Home Visit Emilee MAHONEY [facility] [address] [place] [phone] My Phillips 01/21/2025 7:00 AM EST Clinical Support [facility] [address] [place] [phone] Nkechi Grajeda RN 01/21/2025 9:30 AM EST PACE Home Care / PACE Home Visit Emilee MAHONEY [facility] [address] [place] [address] Merlin Forbes 01/21/2025 10:45 AM EST Clinical Support Emilee MAHONEY MA [address] [place] [address] 01/21/2025 6:00 PM EST PACE Home Care / PACE Home Visit Emilee MAHONEY [facility] [address] [place] [address] My Phillips 01/22/2025 10:00 AM EST PACE Home Care / PACE Home Visit Emilee MAHONEY [facility] [address] [place] [address] Merlin Forbes 01/22/2025 6:00 PM EST PACE Home Care / PACE Home Visit Emilee MAHONEY [facility] [address] [place] [address] My Phillips 01/23/2025 10:30 AM EST PACE Home Care / PACE Home Visit Emilee MAHONEY [facility] [address] [place] [phone] Merlin Forbes 01/23/2025 6:00 PM EST PACE Home Care / PACE Home Visit Emilee MAHONEY [facility] [address] [place] [phone] My Phillips 01/24/2025 9:30 AM EST PACE Home Care / PACE Home Visit Emilee MAHONEY [facility] [address] [place] [address] Merlin Forbes 01/24/2025 6:00 PM EST PACE Home Care / PACE Home Visit Emilee MAHONEY [facility] [address] [place] [phone] My Phillips 01/27/2025 9:30 AM EST PACE Home Care / PACE Home Visit Emilee MAHONEY [facility] [address] [place] [address] Merlin Forbes 01/27/2025 6:00 PM EST PACE Home Care / PACE Home Visit Emilee MAHONEY [facility] [address] [place] [address] My Phillips 01/28/2025 7:00 AM EST Clinical Support [facility] [address] [place] [address] Nkechi Grajeda RN 01/28/2025 9:30 AM EST PACE Home Care / PACE Home Visit Emilee MAHONEY [facility] [address] [place] [phone] Merlin Forbes 01/28/2025 6:00 PM EST PACE Home Care / PACE Home Visit Emilee MAHONEY [facility] [address] [place] [phone] My Phillips 01/29/2025 10:00 AM EST PACE Home Care / PACE Home Visit Emilee MAHONEY [facility] [address] [place] [phone] Merlin Forbes 01/29/2025 6:00 PM EST PACE Home Care / PACE Home Visit Emilee MAHONEY [facility] [address] [place] [phone] My Phillips 01/30/2025 10:30 AM EST PACE Home Care / PACE Home Visit Emilee MAHONEY [facility] [address] [place] [phone] Merlin Forbes 01/30/2025 6:00 PM EST PACE Home Care / PACE Home Visit Emilee MAHONEY [facility] [address] [place] [phone] My Phillips 01/31/2025 9:30 AM EST PACE Home Care / PACE Home Visit Emilee MAHONEY [facility] [address] [place] [address] Merlin Forbes 01/31/2025 11:00 AM EST PACE External Visit Emilee MAHONEY MA [address] [place] [address] 01/31/2025 6:00 PM EST PACE Home Care / PACE Home Visit Emilee MAHONEY [facility] [address] [place] [phone] My Phillips 02/01/2025 8:30 AM EST PACE Home Care / PACE Home Visit Emilee MAHONEY [facility] [address] [place] [phone] Anabelle Valdez 02/02/2025 8:30 AM EST PACE Home Care / PACE Home Visit Emilee MAHONEY [facility] [address] [place] [phone] Anabelle Valdez 02/03/2025 9:30 AM EST PACE Home Care / PACE Home Visit Emilee MAHONEY [facility] [address] [place] [phone] Merlin Forbes 02/03/2025 6:00 PM EST PACE Home Care / PACE Home Visit Emilee MAHONEY [facility] [address] [place] [phone] My Phillips 02/04/2025 7:00 AM EST [facility] Support [facility] [address] [place] [phone] Nkechi Grajeda, EDD 02/04/2025 8:15 AM EST Clinical Support [facility] [place] [facility] [address] [place] [phone] Nkechi Grajeda, EDD 02/04/2025 9:30 AM EST PACE Home Care / PACE Home Visit Emilee MAHONEY [facility] [address] [place] [phone] Leatha Forbes-Jennifer 02/04/2025 6:00 PM EST PACE Home Care / PACE Home Visit Emilee MAHONEY [facility] [address] [place] [phone] My Phillips 02/05/2025 10:00 AM EST PACE Home Care / PACE Home Visit Emilee MAHONEY [facility] [address] [place] [phone] Leatha Forbes-Jennifer 02/05/2025 6:00 PM EST PACE Home Care / PACE Home Visit Emilee MAHONEY [facility] [address] [place] [phone] My Phillips 02/06/2025 10:30 AM EST PACE Home Care / PACE Home Visit Emilee MAHONEY [facility] [address] [place] [phone] Leatha Forbes-Jennifer 02/06/2025 6:00 PM EST PACE Home Care / PACE Home Visit Emilee MA[facility]Y [facility] [address] [place] [phone] My Phillips 02/07/2025 9:30 AM EST PACE Home Care / PACE Home Visit Emilee MAH[facility]Y [facility] [address] [place] [phone] Leatah Forbes-Jennifer 02/07/2025 6:00 PM EST PACE Home Care / PACE Home Visit [facility] [address] [place] [phone] My Phillips 02/10/2025 9:30 AM EST PACE Home Care / PACE Home Visit [facility] [address] [place] [phone] Leatha Forbes-Jennifer 02/10/2025 6:00 PM EST PACE Home Care / PACE Home Visit Emilee [facility]Y [facility] [address] [place] [phone] My Phillips 02/11/2025 7:00 AM EST Clinical Support [facility] [place] [facility] [address] [place] [address] Nkechi Grajeda, EDD 02/11/2025 9:30 AM EST PACE Home Care / PACE Home Visit Em[facility] [address] [place] [phone] Merlin Forbes 02/11/2025 6:00 PM EST PACE Home Care / PACE Home Visit Emilee [facility] [address] [place] [phone] My Phillips 02/12/2025 10:00 AM EST PACE Home Care / PACE Home Visit Em[facility] [address] [place] [phone] Merlin Forbes 02/12/2025 6:00 PM EST PACE Home Care / PACE Home Visit Em[facility] [address] [place] [phone] My Phillips 02/13/2025 10:30 AM EST PACE Home Care / PACE Home Visit Em[facility] [address] [place] [phone] Merlin Forbes 02/13/2025 6:00 PM EST PACE Home Care / PACE Home Visit Emilee [facility] [address] [place] [phone] My Phillips 02/18/2025 7:00 AM EST Clinical Support [facility] [address] [place] [address] Nkechi Grajeda, EDD 02/25/2025 7:00 AM EST Clinical Support [facility] [place] [facility] [address] [place] [phone] Nkechi Grajeda, EDD 02/27/2025 10:40 AM EST Clinical Support [facility] [place] [address] [place] [phone] 03/04/2025 7:00 AM EST Clinical Support [facility] [place] [address] [phone] Nkechi Grajeda, EDD 03/04/2025 8:15 AM EST Clinical Support [facility] [place] [facility] [address] [address] Nkechi Grajeda, EDD 03/11/2025 7:00 AM EST Clinical Support [facility] [place] [facility] [address] [phone] Nkechi Grajeda, EDD 03/18/2025 7:00 AM EST Clinical Support [facility] [place] [facility] [address] [address] Nkechi Grajeda, EDD 03/25/2025 7:00 AM EST Clinical Support [facility] [place] [facility] [address] [phone] Nkechi Grajeda, EDD 04/01/2025 7:00 AM EST Clinical Support [facility] [place] [facility] [address] [phone] Nkechi Grajeda, EDD 04/01/2025 8:15 AM EST Clinical Support [facility] [place] [facility] [address] [place] [phone] Nkechi Grajeda, EDD 04/08/2025 7:00 AM EST Clinical Support [facility] [place] [facility] [address] [place] [phone] Nkechi Grajeda, EDD 04/14/2025 9:25 AM EST Office Visit [facility] [address] [facility] [address] [place] [address] Dillon Mendosa MD [address] [place] [address] [place] [phone] 04/15/2025 7:00 AM EST Clinical Support [facility] [place] [address] [phone] Nkechi Grajeda, EDD 04/22/2025 7:00 AM EST Clinical Support [facility] [place] [address] [phone] Nkechi Grajeda, EDD 04/29/2025 7:00 AM EST Clinical Support [facility] [place] [address] [phone] Nkechi Grajeda, EDD 04/29/2025 8:15 AM EST Clinical Support [facility] [place] [address] [phone] Nkechi Grajeda, EDD 05/06/2025 7:00 AM EST Clinical Support [facility] [place] [address] [phone] Nkechi Grajeda, EDD 05/13/2025 7:00 AM EST Clinical Support [facility] [place] [address] [phone] Nkechi Grajeda, EDD 05/20/2025 7:00 AM EST Clinical Support [facility] [place] [address] [phone] Nkechi Grajeda, EDD 05/27/2025 7:00 AM EDT Clinical Support [facility] [place] [address] [phone] Nkechi Grajeda, EDD 05/27/2025 8:15 AM EDT Clinical Support [facility] [place] [address] [address] Nkechi Grajeda, RN 06/03/2025 7:00 AM EDT Clinical Support [facility] [place] [facility] [address] [place] [phone] Nkechi Grajeda, RN 06/10/2025 7:00 AM EDT Clinical Support [facility] [place] [facility] [address] [place] [phone] Nkechi Grajeda, RN 06/17/2025 7:00 AM EDT Clinical Support [facility] [place] [facility] [address] [place] [phone] Nkechi Grajeda, EDD 06/24/2025 7:00 AM EDT Clinical Support [facility] [place] [facility] [address] [place] [phone] Nkechi Grajeda, EDD 06/24/2025 8:15 AM EDT Clinical Support [facility] [place] [facility] [address] [phone] Nkechi Grajeda, EDD 07/01/2025 7:00 AM EDT Clinical Support [facility] [address] [place] [phone] Nkechi Grajeda, EDD 07/08/2025 7:00 AM EDT Clinical Support [facility] [place] [facility] [address] [place] [phone] Nkechi Grajeda, RN 07/15/2025 7:00 AM EDT Clinical Support [facility] [place] [facility] [address] [place] [phone] Nkechi Grajeda, RN 07/22/2025 8:15 AM EDT Clinical Support [facility] [address] [place] [phone] Nkechi Grajeda, RN 08/19/2025 8:15 AM EDT Clinical Support [facility] [place] [facility] [address] [place] [phone] Nkechi Grajeda, RN 09/16/2025 8:15 AM EDT Clinical Support [address] [phone] Nkechi Grajeda RN 10/14/2025 8:15 AM EDT Clinical Support [address] [phone] Nkechi Grajeda RN 11/11/2025 8:15 AM EDT Clinical Support [address] [phone] Nkechi Grajeda RN 12/09/2025 8:15 AM EDT Clinical Support [address] [phone] kNechi Grajeda, RN documented as of this encounter Visit Diagnoses Not on filedocumented in this encounter Additional Health Concerns Assessment Noted Time PHQ-9 Depression Total Score: 20 025 12:16 PM EDT documented as of this encounter Care Teams Skelp Processor Relationship Specialty Start Date End Date Deloris Tobias NP [address] [place] [phone] PCP - General Family Medicine 12/01/24 documented as of this encounter
--- OUTSIDE RECORDS SUMMARY | 2024-12-13 18:00 | XMS_ITS | Encounter Summary ---
Author Organization [facility] Address [address] [place] [address] Care Team Providers Care Geriatric Aide Name Role Phone Deloris Tobias SCIENTIFIC ILLUSTRATOR Primary Care Provider [phone] Encounter Details Date Type Department Care Team (Late st Contact Info) Description 12/13/2024 6:00 PM EDT PACE Home Care / PACE Home Visit Emilee MAHONEY [facility] [address] [place] [phone] My [facility] Social History Tobacco Use Types [...] [facility] [address] [place] [phone] Merlin Forbes 12/16/2024 11:00 AM EDT Office Visit [facility] [address] [place] [address] Deloris Tobias, JOHNATHAN [address] [address] 12/16/2024 6:00 PM EDT PACE Home Care / PACE Home Visit Emilee MAHONEY [facility] [address] [place] [phone] My [facility] 12/17/2024 7:00 AM EDT Clinical Support [facility] [address] [place] [phone] Nkechi Grajeda RN 12/17/2024 9:30 AM EDT PACE Home Care / PACE Home Visit Emilee [facility]ONEY [facility] [address] [place] [phone] Merlin Forbes 12/17/2024 11:00 AM EDT Treatment Emilee MAHONEY MA Occupational Therapy [address] [place] [phone] Tyler Ling OT 12/17/2024 6:00 PM EDT PACE Home Care / PACE Home Visit Emilee MAHONEY [facility] [address] [place] [phone] My [facility] 12/18/2024 10:00 AM EDT PACE Home Care / PACE Home Visit Emilee MAHONEY [facility] [address] [place] [phone] Merlin Forbes 12/18/2024 6:00 PM EDT PACE Home Care / PACE Home Visit [facility] [address] [place] [phone] My Phillips 12/19/2024 10:30 AM EDT PACE Home Care / PACE Home Visit Emilee MAHONEY [facility] [address] [place] [phone] Merlin Forbes 12/19/2024 6:00 PM EDT PACE Home Care / PACE Home Visit Emilee MAHONEY [facility] [address] [place] [phone] My Phillips 12/20/2024 9:00 AM EDT Appointment [address] [phone] 12/20/2024 9:30 AM EDT PACE Home Care / PACE Home Visit Emilee MAHONEY [facility] [address] [place] [phone] Merlin Forbes 12/20/2024 6:00 PM EDT PACE Home Care / PACE Home Visit Emilee MAHONEY [facility] [address] [place] [phone] My Phillips 12/21/2024 8:30 AM EDT PACE Home Care / PACE Home Visit Emilee MAHONEY [facility] [address] [place] [phone] Anabelle Valdez 12/22/2024 8:30 AM EDT PACE Home Care / PACE Home Visit Emilee MAHONEY [facility] [address] [place] [phone] Anabelle Valdez 12/23/2024 9:30 AM EDT PACE Home Care / PACE Home Visit Emilee MAHONEY [facility] [address] [place] [phone] Merlin Forbes 12/23/2024 6:00 PM EDT PACE Home Care / PACE Home Visit Emilee MAHONEY [facility] [address] [place] [phone] My [facility] 12/24/2024 7:00 AM EDT Clinical Support [facility] [address] [place] [address] Nkechi Grajeda RN 12/24/2024 9:30 AM EDT PACE Home Care / PACE Home Visit Emilee MAHONEY [facility] [address] [place] [phone] Merlin Forbes 12/24/2024 6:00 PM EDT PACE Home Care / PACE Home Visit Emilee MAHONEY [facility] [address] [place] [phone] My Phillips 12/25/2024 10:00 AM EDT PACE Home Care / PACE Home Visit Emilee MAHONEY [facility] [address] [place] [phone] Merlin Forbes 12/25/2024 6:00 PM EDT PACE Home Care / PACE Home Visit Emilee MAHONEY [facility] [address] [place] [phone] My Phillips 12/26/2024 10:40 AM EDT Clinical Support Emilee MAHONEY MA [address] [place] [phone] 12/26/2024 6:00 PM EDT PACE Home Care / PACE Home Visit Emilee MAHONEY [facility] [address] [place] [phone] My Phillips 12/27/2024 9:30 AM EDT PACE Home Care / PACE Home Visit Emilee MAHONEY [facility] [address] [place] [phone] Merlin Forbes 12/27/2024 6:00 PM EDT PACE Home Care / PACE Home Visit Emilee MAHONEY [facility] [address] [place] [address] My Phillips 12/30/2024 9:30 AM EDT PACE Home Care / PACE Home Visit Emilee MAHONEY [facility] [address] [place] [address] Merlin Forbes 12/30/2024 6:00 PM EDT PACE Home Care / PACE Home Visit Emilee MAHONEY [facility] [address] [place] [address] My [facility] 12/31/2024 7:00 AM EDT Clinical Support [facility] [place] [facility] [address] [place] [address] Nkechi Grajeda RN 12/31/2024 9:30 AM EDT PACE Home Care / PACE Home Visit Emilee MAHONEY [facility] [address] [place] [address] Merlin Forbes 12/31/2024 10:00 AM EDT Ancillary Procedure [facility] [address] [place] [address] 12/31/2024 6:00 PM EDT PACE Home Care / PACE Home Visit Emilee MAHONEY [facility] [address] [place] [address] My Phillips 01/01/2025 10:00 AM EDT PACE Home Care / PACE Home Visit Emilee MAHONEY [facility] [address] [place] [address] Merlin Forbes 01/01/2025 6:00 PM EDT PACE Home Care / PACE Home Visit Emilee MAHONEY [facility] [address] [place] [address] My Phillips 01/02/2025 10:30 AM EDT PACE Home Care / PACE Home Visit Emilee MAHONEY [facility] [address] [place] [address] Merlin Forbes 01/02/2025 3:00 PM EDT Clinical Support Emilee MAHONEY [place] [address] [place] [address] 01/02/2025 6:00 PM EDT PACE Home Care / PACE Home Visit Emilee MAHONEY [facility] [address] [place] [phone] My Phillips 01/03/2025 9:30 AM EDT PACE Home Care / PACE Home Visit Emilee MAHONEY [facility] [address] [place] [phone] Merlin Forbes 01/03/2025 6:00 PM EDT PACE Home Care / PACE Home Visit Emilee MAHONEY [facility] [address] [place] [phone] My Phillips 01/04/2025 8:30 AM EDT PACE Home Care / PACE Home Visit Emilee MAHONEY [facility] [address] [place] [phone] Anabelle Valdez 01/05/2025 8:30 AM EDT PACE Home Care / PACE Home Visit Emilee MAHONEY [facility] [address] [place] [phone] Anabelle Valdez 01/06/2025 9:30 AM EDT PACE Home Care / PACE Home Visit Emilee MAHONEY [facility] [address] [place] [phone] Merlin Forbes 01/06/2025 6:00 PM EDT PACE Home Care / PACE Home Visit Emilee MAHONEY [facility] [address] [place] [phone] My [facility] 01/07/2025 7:00 AM EDT Clinical Support [facility] [address] [place] [phone] Nkechi Grajeda, EDD 01/07/2025 8:15 AM EDT Clinical Support [facility] [address] [place] [address] Nkechi Grajeda RN 01/07/2025 9:30 AM EDT PACE Home Care / PACE Home Visit Emilee MA[facility]Y [facility] [address] [place] [address] Merlin Forbes 01/07/2025 6:00 PM EDT PACE Home Care / PACE Home Visit Emilee MAHONEY [facility] [address] [place] [phone] My Phillips 01/08/2025 10:00 AM EDT PACE Home Care / PACE Home Visit Emilee MAHONEY [facility] [address] [place] [phone] Merlin Forbes 01/08/2025 6:00 PM EDT PACE Home Care / PACE Home Visit Emilee MAHONEY [facility] [address] [place] [phone] My [facility] 01/09/2025 10:30 AM EDT PACE Home Care / PACE Home Visit Emilee MAHONEY [facility] [address] [place] [address] Merlin Forbes 01/09/2025 6:00 PM EDT PACE Home Care / PACE Home Visit Emilee MAHONEY [facility] [address] [place] [address] My Phillips 01/10/2025 9:30 AM EDT PACE Home Care / PACE Home Visit Emilee MAHONEY [facility] [address] [place] [address] Merlin Forbes 01/10/2025 10:00 AM EDT Clinical Support Emilee MAHONEY MA [address] [place] [address] 01/10/2025 6:00 PM EDT PACE Home Care / PACE Home Visit Emilee MAHONEY [facility] [address] [place] [address] My Phillips 01/13/2025 9:30 AM EDT PACE Home Care / PACE Home Visit Emilee MAHONEY [facility] [address] [place] [address] Merlin Forbes 01/13/2025 6:00 PM EDT PACE Home Care / PACE Home Visit Emilee MAHONEY [facility] [address] [place] [address] My Phillips 01/14/2025 7:00 AM EDT Clinical Support [facility] [address] [place] [address] Nkechi Grajeda RN 01/14/2025 9:30 AM EDT PACE Home Care / PACE Home Visit Emilee MAHONEY [facility] [address] [place] [phone] Merlin Forbes 01/14/2025 6:00 PM EDT PACE Home Care / PACE Home Visit Emilee MAHONEY [facility] [address] [place] [address] My Phillips 01/15/2025 10:00 AM EDT PACE Home Care / PACE Home Visit Emilee MAHONEY [facility] [address] [place] [address] Merlin Forbes 01/15/2025 6:00 PM EDT PACE Home Care / PACE Home Visit Emilee MAHONEY [facility] [address] [place] [address] My Phillips 01/16/2025 10:30 AM EDT PACE Home Care / PACE Home Visit Emilee MA[facility]ONEY [facility] [address] [place] [address] Merlin Forbes 01/16/2025 6:00 PM EDT PACE Home Care / PACE Home Visit Emilee MAHONEY [facility] [address] [place] [address] My Phillips 01/17/2025 9:30 AM EDT PACE Home Care / PACE Home Visit Emilee MAHONEY [facility] [address] [place] [phone] Merlin Forbes 01/17/2025 6:00 PM EDT PACE Home Care / PACE Home Visit Emilee MAHONEY [facility] [address] [place] [phone] My Phillips 01/18/2025 8:30 AM EDT PACE Home Care / PACE Home Visit Emilee MAHONEY [facility] [address] [place] [phone] Anabelle Valdez 01/19/2025 8:30 AM EST PACE Home Care / PACE Home Visit Emilee MAHONEY [facility] [address] [place] [phone] Anabelle Valdez 01/20/2025 9:30 AM EST PACE Home Care / PACE Home Visit Emilee MAHONEY [facility] [address] [place] [phone] Merlin Forbes 01/20/2025 6:00 PM EST PACE Home Care / PACE Home Visit Emilee MAHONEY [facility] [address] [place] [phone] My [facility] 01/21/2025 7:00 AM EST Clinical Support [facility] [address] [place] [phone] Nkechi Grajeda RN 01/21/2025 9:30 AM EST PACE Home Care / PACE Home Visit Emilee MAHONEY [facility] [address] [place] [address] Merlin Forbes 01/21/2025 10:45 AM EST Clinical Support Emilee MAHONEY MA [address] [place] [address] 01/21/2025 6:00 PM EST PACE Home Care / PACE Home Visit Emilee MAHONEY [facility] [address] [place] [address] My Phillips 01/22/2025 10:00 AM EST PACE Home Care / PACE Home Visit Emilee MAHONEY [facility] [address] [place] [address] Merlin Forbes 01/22/2025 6:00 PM EST PACE Home Care / PACE Home Visit Emilee MAHONEY [facility] [address] [place] [phone] My Phillips 01/23/2025 10:30 AM EST PACE Home Care / PACE Home Visit Emilee MAHONEY [facility] [address] [place] [phone] Merlin Forbes 01/23/2025 6:00 PM EST PACE Home Care / PACE Home Visit Emilee MAHONEY [facility] [address] [place] [phone] My Phillips 01/24/2025 9:30 AM EST PACE Home Care / PACE Home Visit Emilee MAHONEY [facility] [address] [place] [address] Merlin Forbes 01/24/2025 6:00 PM EST PACE Home Care / PACE Home Visit Emilee MAHONEY [facility] [address] [place] [address] My Phillips 01/27/2025 9:30 AM EST PACE Home Care / PACE Home Visit Emilee MAHONEY [facility] [address] [place] [address] Merlin Forbes 01/27/2025 6:00 PM EST PACE Home Care / PACE Home Visit Emilee MAHONEY [facility] [address] [place] [address] My Phillips 01/28/2025 7:00 AM EST Clinical Support [facility] [address] [place] [address] Nkechi Grajeda RN 01/28/2025 9:30 AM EST PACE Home Care / PACE Home Visit Emilee MA[facility]ONEY [facility] [address] [place] [phone] Merlin Forbes 01/28/2025 6:00 PM EST PACE Home Care / PACE Home Visit Emilee MAHONEY [facility] [address] [place] [phone] My Phillips 01/29/2025 10:00 AM EST PACE Home Care / PACE Home Visit Emilee MAHONEY [facility] [address] [place] [phone] Merlin Forbes 01/29/2025 6:00 PM EST PACE Home Care / PACE Home Visit Emilee MAHONEY [facility] [address] [place] [phone] My Phillips 01/30/2025 10:30 AM EST PACE Home Care / PACE Home Visit Emilee MAHONEY [facility] [address] [place] [phone] Merlin Forbes 01/30/2025 6:00 PM EST PACE Home Care / PACE Home Visit Emilee MAHONEY [facility] [address] [place] [phone] My Phillips 01/31/2025 9:30 AM EST PACE Home Care / PACE Home Visit Emilee MAHONEY [facility] [address] [place] [address] Merlin Forbes 01/31/2025 11:00 AM EST PACE External Visit Emilee MAHONEY [place] [address] [place] [address] 01/31/2025 6:00 PM EST PACE Home Care / PACE Home Visit Emilee MAHONEY [facility] [address] [place] [phone] My Phillips 02/01/2025 8:30 AM EST PACE Home Care / PACE Home Visit Emilee MAHONEY [facility] [address] [place] [phone] Anabelle Valdez 02/02/2025 8:30 AM EST PACE Home Care / PACE Home Visit Emilee MA[facility]Y [facility] [address] [place] [phone] Anabelle Valdez 02/03/2025 9:30 AM EST PACE Home Care / PACE Home Visit Emilee MA[facility] [address] [place] [phone] Merlin Forbes 02/03/2025 6:00 PM EST PACE Home Care / PACE Home Visit Emilee MA[facility]ONEY [facility] [address] [place] [phone] My Phillips 02/04/2025 7:00 AM EST Clinical Support [facility] [place] [facility] [address] [place] [phone] Nkechi Grajeda, EDD 02/04/2025 8:15 AM EST Clinical Support [facility] [place] [facility] [address] [place] [phone] Nkechi Grajeda, EDD 02/04/2025 9:30 AM EST PACE Home Care / PACE Home Visit Emilee MAHONEY [facility] [address] [place] [phone] Merlin Forbes 02/04/2025 6:00 PM EST PACE Home Care / PACE Home Visit Emilee MAHONEY [facility] [address] [place] [phone] My Phillips 02/05/2025 10:00 AM EST PACE Home Care / PACE Home Visit [facility] [address] [place] [phone] Leatha Forbes-Jennifer 02/05/2025 6:00 PM EST PACE Home Care / PACE Home Visit Emilee MA[facility]Y [facility] [address] [place] [phone] My Phillips 02/06/2025 10:30 AM EST PACE Home Care / PACE Home Visit [facility] [place] [facility] [address] [place] [phone] Leatha Forbes-Jennifer 02/06/2025 6:00 PM EST PACE Home Care / PACE Home Visit [facility] [place] [facility] [address] [place] [phone] My Phillips 02/07/2025 9:30 AM EST PACE Home Care / PACE Home Visit [facility] [place] [facility] [address] [place] [phone] Merlin Forbes 02/07/2025 6:00 PM EST PACE Home Care / PACE Home Visit [facility] [place] [facility] [address] [place] [phone] My Phillips 02/10/2025 9:30 AM EST PACE Home Care / P[facility] Home Visit [facility] [place] [facility] [address] [place] [phone] Merlin Forbes 02/10/2025 6:00 PM EST PACE Home Care / PACE Home Visit Emilee MA[facility]ONEY [facility] [address] [place] [phone] My Phillips 02/11/2025 7:00 AM EST Clinical Support [facility] [address] [place] [phone] Nkechi Grajeda, EDD 02/11/2025 9:30 AM EST PACE Home Care / PACE Home Visit Emilee [facility] [address] [place] [phone] Merlin Forbes 02/11/2025 6:00 PM EST PACE Home Care / PACE Home Visit Emilee [facility] [address] [place] [phone] My Phillips 02/12/2025 10:00 AM EST PACE Home Care / PACE Home Visit Emilee [facility]Y [facility] [address] [place] [phone] Merlin Forbes 02/12/2025 6:00 PM EST PACE Home Care / PACE Home Visit Emilee [facility] [address] [place] [phone] My Phillips 02/13/2025 10:30 AM EST PACE Home Care / PACE Home Visit Emilee [facility] [address] [place] [phone] Merlin Forbes 02/13/2025 6:00 PM EST PACE Home Care / PACE Home Visit Emilee [facility]Y [facility] [address] [place] [phone] My Phillips 02/18/2025 7:00 AM EST Clinical Support [facility] [place] [facility] [address] [place] [address] Nkechi Grajeda, EDD 02/25/2025 7:00 AM EST Clinical Support [facility] [place] [address] [address] Nkechi Grajeda, EDD 02/27/2025 10:40 AM EST Clinical Support [facility] [place] [address] [place] [phone] 03/04/2025 7:00 AM EST Clinical Support [facility] [place] [address] [address] Nkechi Grajeda, EDD 03/04/2025 8:15 AM EST Clinical Support [facility] [place] [address] [address] Nkechi Grajeda, EDD 03/11/2025 7:00 AM EST Clinical Support [facility] [place] [address] [address] Nkechi Grajeda, EDD 03/18/2025 7:00 AM EST Clinical Support [facility] [place] [address] [address] Nkechi Grajeda, EDD 03/25/2025 7:00 AM EST Clinical Support [facility] [place] [address] [address] Nkechi Grajeda, EDD 04/01/2025 7:00 AM EST Clinical Support [facility] [place] [address] [address] Nkechi Grajeda, EDD 04/01/2025 8:15 AM EST Clinical Support [facility] [place] [facility] [address] [place] [phone] Nkechi Grajeda, EDD 04/08/2025 7:00 AM EST Clinical Support [facility] [place] [address] [address] Nkechi Grajeda, EDD 04/14/2025 9:25 AM EST Office Visit [facility] [address] [facility] [address] [place] [address] Dillon Mendosa MD [address] [place] [address] [place] [phone] 04/15/2025 7:00 AM EST Clinical Support [facility] [place] [address] [address] Nkechi Grajeda, EDD 04/22/2025 7:00 AM EST Clinical Support [facility] [place] [address] [address] Nkechi Grajeda, EDD 04/29/2025 7:00 AM EST Clinical Support [facility] [place] [address] [address] Nkechi Grjaeda, EDD 04/29/2025 8:15 AM EST Clinical Support [facility] [place] [address] [address] Nkechi Grajeda, EDD 05/06/2025 7:00 AM EST Clinical Support [facility] [place] [address] [address] Nkechi Grajeda, EDD 05/13/2025 7:00 AM EST Clinical Support [facility] [place] [address] [address] Nkechi Grajeda, EDD 05/20/2025 7:00 AM EST Clinical Support [facility] [place] [address] [address] Nkechi Grajeda, EDD 05/27/2025 7:00 AM EDT Clinical Support [facility] [place] [address] [address] Nkechi Grajeda, EDD 05/27/2025 8:15 AM EDT Clinical Support [facility] [place] [address] [address] Nkechi Grajeda, EDD 06/03/2025 7:00 AM EDT Clinical Support [facility] [place] [facility] [address] [place] [phone] Nkechi Grajeda, EDD 06/10/2025 7:00 AM EDT Clinical Support [facility] [place] [facility] [address] [place] [phone] Nkechi Grajeda, RN 06/17/2025 7:00 AM EDT Clinical Support [facility] [place] [facility] [address] [place] [phone] Nkechi Grajeda, EDD 06/24/2025 7:00 AM EDT Clinical Support [facility] [place] [facility] [address] [place] [phone] Nkcehi Grajeda, EDD 06/24/2025 8:15 AM EDT Clinical Support [facility] [place] [address] [address] Nkechi Grajeda, EDD 07/01/2025 7:00 AM EDT Clinical Support [facility] [place] [facility] [address] [place] [phone] Nkechi Grajeda, EDD 07/08/2025 7:00 AM EDT Clinical Support [facility] [place] [facility] [address] [place] [phone] Nkechi Grajeda, RN 07/15/2025 7:00 AM EDT Clinical Support [facility] [place] [facility] [address] [place] [phone] Nkechi Grajeda, RN 07/22/2025 8:15 AM EDT Clinical Support [facility] [place] [facility] [address] [place] [phone] Nkechi Grajeda, RN 08/19/2025 8:15 AM EDT Clinical Support [facility] [place] [facility] [address] [place] [phone] Nkechi Grajeda, EDD 09/16/2025 8:15 AM EDT Clinical Support [address] [address] Nkechi Grajeda RN 10/14/2025 8:15 AM EDT Clinical Support [address] [address] Nkechi Grajeda RN 11/11/2025 8:15 AM EDT Clinical Support [address] [address] Nkechi Grajeda RN 12/09/2025 8:15 AM EDT Clinical Support [address] [address] Nkechi Grajeda, RN documented as of this encounter Visit Diagnoses Not on filedocumented in this encounter Additional Health Concerns Assessment Noted Time PHQ-9 Depression Total Score: 20 025 12:16 PM EDT documented as of this encounter Care Teams Geriatric Aide Relationship Specialty Start Date End Date Deloris Tobias NP [address] [place] [address] PCP - General Family Medicine 12/01/24 documented as of this encounter
--- OUTSIDE RECORDS SUMMARY | 2024-12-14 10:00 | XMS_ITS | Encounter Summary ---
Author Organization [facility] Address [address] [place] [address] Care Team Providers Care Excellence Manager Name Role Phone Deloris Tobias RESTAURANT ASSISTANT Primary Care Provider Encounter Details Date Type Department Care Team (Late st Contact Info) Description 12/14/2024 10:00 AM EDT PACE Home Care / PACE Home Visit Emilee [facility]Y [facility] [address] [place] [phone] Emilie Callahan Social History Tobacco Use Types Packs/Day Years [...] In [facility] [address] [place] [phone] Merlin Forbes 12/16/2024 11:00 AM EDT Office Visit [facility] [address] [place] [phone] Deloris Tobias, JOHNATHAN [address] [address] 12/16/2024 6:00 PM EDT PACE Home Care / PACE Home Visit Emilee [facility] [address] [place] [phone] My Phillips 12/17/2024 7:00 AM EDT Clinical Support [facility] [address] [place] [phone] Nkechi Grajeda RN 12/17/2024 9:30 AM EDT PACE Home Care / PACE Home Visit Emilee [facility] [address] [place] [phone] Merlin Forbes 12/17/2024 11:00 AM EDT Treatment Emilee MAHONEY MA Occupational Therapy [address] [place] [phone] Tyler Ling OT 12/17/2024 6:00 PM EDT PACE Home Care / PACE Home Visit Emilee [facility] [address] [place] [phone] My Phillips 12/18/2024 10:00 AM EDT PACE Home Care / PACE Home Visit Emilee [facility] [address] [place] [phone] Merlin Forbes 12/18/2024 6:00 PM EDT PACE Home Care / P[facility] Home Visit [facility] [place] [facility] [address] [place] [address] My Phillips 12/19/2024 10:30 AM EDT PACE Home Care / PACE Home Visit Emilee MAHONEY [facility] [address] [place] [address] Merlin Forbes 12/19/2024 6:00 PM EDT PACE Home Care / PACE Home Visit Emilee [facility]Y [facility] [address] [place] [address] My Phillips 12/20/2024 9:00 AM EDT Appointment [address] [phone] 12/20/2024 9:30 AM EDT PACE Home Care / PACE Home Visit Emilee [facility] [address] [place] [phone] Merlin Forbes 12/20/2024 6:00 PM EDT PACE Home Care / PACE Home Visit Emilee [facility] [address] [place] [phone] My Phillips 12/21/2024 8:30 AM EDT PACE Home Care / PACE Home Visit Emilee [facility] [address] [place] [phone] Anabelle Valdez 12/22/2024 8:30 AM EDT PACE Home Care / PACE Home Visit Emilee [facility] [address] [place] [phone] Anabelle Valdez 12/23/2024 9:30 AM EDT PACE Home Care / PACE Home Visit Emilee [facility] [address] [place] [phone] Merlin Forbes 12/23/2024 6:00 PM EDT PACE Home Care / PACE Home Visit Emilee [facility]Y [facility] [address] [place] [address] My Phillips 12/24/2024 7:00 AM EDT Clinical Support [facility] [address] [place] [address] Nkechi Grajeda RN 12/24/2024 9:30 AM EDT PACE Home Care / PACE Home Visit Emilee [facility] [address] [place] [address] Merlin Forbes 12/24/2024 6:00 PM EDT PACE Home Care / PACE Home Visit Emilee [facility]Y [facility] [address] [place] [phone] My Phillips 12/25/2024 10:00 AM EDT PACE Home Care / PACE Home Visit Emilee [facility] [address] [place] [phone] Merlin Forbes 12/25/2024 6:00 PM EDT PACE Home Care / PACE Home Visit Emilee [facility]ONEY [facility] [address] [place] [phone] My Phillips 12/26/2024 10:40 AM EDT Clinical Support Emilee MAHONEY MA [address] [place] [phone] 12/26/2024 6:00 PM EDT PACE Home Care / PACE Home Visit Emilee [facility]Y [facility] [address] [place] [phone] My Phillips 12/27/2024 9:30 AM EDT PACE Home Care / PACE Home Visit Emilee [facility] [address] [place] [phone] Merlin Forbes 12/27/2024 6:00 PM EDT PACE Home Care / PACE Home Visit Emilee MA[facility] [address] [place] [address] My Phillips 12/30/2024 9:30 AM EDT PACE Home Care / PACE Home Visit Emilee [facility]Y [facility] [address] [place] [phone] Merlin Forbes 12/30/2024 6:00 PM EDT PACE Home Care / PACE Home Visit Emilee [facility] [address] [place] [address] My Phillips 12/31/2024 7:00 AM EDT Clinical Support [facility] [address] [place] [phone] Nkechi Grajeda RN 12/31/2024 9:30 AM EDT PACE Home Care / PACE Home Visit Emilee [facility]Y [facility] [address] [place] [phone] Merlin Forbes 12/31/2024 10:00 AM EDT Ancillary Procedure [facility] - [address] [facility] [address] [place] [address] 12/31/2024 6:00 PM EDT PACE Home Care / PACE Home Visit Emilee MAHONEY [facility] [address] [place] [phone] My Phillips 01/01/2025 10:00 AM EDT PACE Home Care / PACE Home Visit Emilee MAHONEY [facility] [address] [place] [phone] Merlin Forbes 01/01/2025 6:00 PM EDT PACE Home Care / PACE Home Visit Emilee [facility]ONEY [facility] [address] [place] [address] My Phillips 01/02/2025 10:30 AM EDT PACE Home Care / PACE Home Visit Emilee MA[facility]ONEY [facility] [address] [place] [address] Merlin Forbes 01/02/2025 3:00 PM EDT Clinical Support Emilee MAHONEY [place] [address] [place] [address] 01/02/2025 6:00 PM EDT PACE Home Care / PACE Home Visit Emilee MAHONEY [facility] [address] [place] [phone] My Phillips 01/03/2025 9:30 AM EDT PACE Home Care / PACE Home Visit Emilee MA[facility]ONEY [facility] [address] [place] [phone] Merlin Forbes 01/03/2025 6:00 PM EDT PACE Home Care / PACE Home Visit Emilee MA[facility]ONEY [facility] [address] [place] [phone] My Phillips 01/04/2025 8:30 AM EDT PACE Home Care / PACE Home Visit Emilee MAHONEY [facility] [address] [place] [phone] Anabelle Valdez 01/05/2025 8:30 AM EDT PACE Home Care / PACE Home Visit Emilee [facility]ONEY [facility] [address] [place] [phone] Anabelle Valdez 01/06/2025 9:30 AM EDT PACE Home Care / PACE Home Visit Emilee [facility]ONE[facility] [address] [place] [phone] Merlin Forbes 01/06/2025 6:00 PM EDT PACE Home Care / PACE Home Visit Emilee [facility]Y [facility] [address] [place] [address] My Phillips 01/07/2025 7:00 AM EDT Clinical Support [facility] [address] [place] [phone] Nkechi Grajeda, EDD 01/07/2025 8:15 AM EDT Clinical Support [facility] [address] [place] [phone] Nkechi Grajeda, EDD 01/07/2025 9:30 AM EDT PACE Home Care / PACE Home Visit Emilee [facility] [address] [place] [phone] Merlin Forbes 01/07/2025 6:00 PM EDT PACE Home Care / PACE Home Visit Emilee MA[facility]ONEY [facility] [address] [place] [phone] My Phillips 01/08/2025 10:00 AM EDT PACE Home Care / PACE Home Visit Emilee [facility] [address] [place] [phone] Merlin Forbes 01/08/2025 6:00 PM EDT PACE Home Care / PACE Home Visit Emilee [facility] [address] [place] [phone] My Phillips 01/09/2025 10:30 AM EDT PACE Home Care / PACE Home Visit Emilee MA[facility]Y [facility] [address] [place] [phone] Merlin Forbes 01/09/2025 6:00 PM EDT PACE Home Care / PACE Home Visit Emilee MA[facility]Y [facility] [address] [place] [phone] My Phillips 01/10/2025 9:30 AM EDT PACE Home Care / PACE Home Visit Emilee [facility]Y [facility] [address] [place] [phone] Merlin Forbes 01/10/2025 10:00 AM EDT Clinical Support Emilee MAHONEY [place] [address] [place] [address] 01/10/2025 6:00 PM EDT PACE Home Care / PACE Home Visit Emilee MA[facility]ONEY [facility] [address] [place] [address] My Phillips 01/13/2025 9:30 AM EDT PACE Home Care / PACE Home Visit Emilee MAHONEY [facility] [address] [place] [address] Merlin Forbes 01/13/2025 6:00 PM EDT PACE Home Care / PACE Home Visit Emilee MAHONEY [facility] [address] [place] [address] My Phillips 01/14/2025 7:00 AM EDT Clinical Support [facility] [address] [place] [phone] Nkechi Grajeda RN 01/14/2025 9:30 AM EDT PACE Home Care / PACE Home Visit Em[facility] [address] [place] [phone] Merlin Forbes 01/14/2025 6:00 PM EDT PACE Home Care / PACE Home Visit Emilee [facility] [address] [place] [phone] My Phillips 01/15/2025 10:00 AM EDT PACE Home Care / PACE Home Visit Emilee [facility] [address] [place] [phone] Merlin Forbes 01/15/2025 6:00 PM EDT PACE Home Care / PACE Home Visit Emilee [facility] [address] [place] [address] My Phillips 01/16/2025 10:30 AM EDT PACE Home Care / PACE Home Visit Emilee [facility] [address] [place] [address] Merlin Forbes 01/16/2025 6:00 PM EDT PACE Home Care / PACE Home Visit Emilee [facility] [address] [place] [phone] My Phillips 01/17/2025 9:30 AM EDT PACE Home Care / PACE Home Visit Emilee [facility] [address] [place] [phone] Merlin Forbes 01/17/2025 6:00 PM EDT PACE Home Care / PACE Home Visit Em[facility] [address] [place] [phone] My Phillips 01/18/2025 8:30 AM EDT PACE Home Care / PACE Home Visit Em[facility] [address] [place] [phone] Anabelle Valdez 01/19/2025 8:30 AM EST PACE Home Care / PACE Home Visit Em[facility] [address] [place] [phone] Anabelle Valdez 01/20/2025 9:30 AM EST PACE Home Care / PACE Home Visit Emilee [facility] [address] [place] [phone] Merlin Forbes 01/20/2025 6:00 PM EST PACE Home Care / PACE Home Visit Em[facility] [address] [place] [phone] My Phillips 01/21/2025 7:00 AM EST Clinical Support [facility] [address] [place] [phone] Nkechi Grajeda RN 01/21/2025 9:30 AM EST PACE Home Care / PACE Home Visit Em[facility] [address] [place] [address] Merlin Forbes 01/21/2025 10:45 AM EST Clinical Support Emilee MAH[facility]Y [place] [address] [place] [address] 01/21/2025 6:00 PM EST PACE Home Care / PACE Home Visit Em[facility] [address] [place] [address] My Phillips 01/22/2025 10:00 AM EST PACE Home Care / PACE Home Visit Em[facility] [address] [place] [address] Merlin Forbes 01/22/2025 6:00 PM EST PACE Home Care / PACE Home Visit Em[facility] [address] [place] [address] My Phillips 01/23/2025 10:30 AM EST PACE Home Care / PACE Home Visit Emilee [facility] [address] [place] [phone] Merlin Forbes 01/23/2025 6:00 PM EST PACE Home Care / PACE Home Visit Emilee [facility] [address] [place] [phone] My Phillips 01/24/2025 9:30 AM EST PACE Home Care / PACE Home Visit Emilee [facility] [address] [place] [phone] Merlin Forbes 01/24/2025 6:00 PM EST PACE Home Care / PACE Home Visit Emilee MA[facility]Y [facility] [address] [place] [phone] My Phillips 01/27/2025 9:30 AM EST PACE Home Care / PACE Home Visit Em[facility] [address] [place] [address] Merlin Forbes 01/27/2025 6:00 PM EST PACE Home Care / PACE Home Visit Em[facility] [address] [place] [address] My Phillips 01/28/2025 7:00 AM EST Clinical Support [facility] [address] [place] [address] Nkechi Grajeda RN 01/28/2025 9:30 AM EST PACE Home Care / PACE Home Visit [facility] [address] [place] [phone] Merlin Forbes 01/28/2025 6:00 PM EST PACE Home Care / PACE Home Visit Em[facility] [address] [place] [phone] My Phillips 01/29/2025 10:00 AM EST PACE Home Care / PACE Home Visit Em[facility] [address] [place] [phone] Merlin Forbes 01/29/2025 6:00 PM EST PACE Home Care / PACE Home Visit Em[facility] [address] [place] [phone] My Phillips 01/30/2025 10:30 AM EST PACE Home Care / PACE Home Visit Emilee [facility] [address] [place] [phone] Merlin Forbes 01/30/2025 6:00 PM EST PACE Home Care / PACE Home Visit Em[facility] [address] [place] [phone] My Phillips 01/31/2025 9:30 AM EST PACE Home Care / PACE Home Visit Em[facility] [address] [place] [address] Merlin Forbes 01/31/2025 11:00 AM EST PACE External Visit [facility] [address] [place] [address] 01/31/2025 6:00 PM EST PACE Home Care / PACE Home Visit Em[facility] [address] [place] [phone] My Phillips 02/01/2025 8:30 AM EST PACE Home Care / PACE Home Visit [facility] [address] [place] [phone] Anabelle Valdez 02/02/2025 8:30 AM EST PACE Home Care / PACE Home Visit [facility] [address] [place] [phone] Anabelle Valdez 02/03/2025 9:30 AM EST PACE Home Care / PACE Home Visit Em[facility] [address] [place] [phone] Merlin Forbes 02/03/2025 6:00 PM EST PACE Home Care / PACE Home Visit [facility] [address] [place] [phone] My Phillips 02/04/2025 7:00 AM EST [facility] Support [facility] [address] [place] [phone] Nkechi Grajeda, EDD 02/04/2025 8:15 AM EST Clinical Support [facility] [place] [facility] [address] [place] [phone] Nkechi Grajeda, EDD 02/04/2025 9:30 AM EST PACE Home Care / PACE Home Visit [facility] [address] [place] [phone] Merlin Forbes 02/04/2025 6:00 PM EST PACE Home Care / PACE Home Visit [facility] [place] [facility] [address] [place] [phone] My Phillips 02/05/2025 10:00 AM EST PACE Home Care / PACE Home Visit [facility] [place] [facility] [address] [place] [phone] Merlin Forbes 02/05/2025 6:00 PM EST PACE Home Care / PACE Home Visit [facility] [address] [place] [phone] My Phillips 02/06/2025 10:30 AM EST PACE Home Care / PACE Home Visit [facility] [place] [facility] [address] [place] [phone] Merlin Forbes 02/06/2025 6:00 PM EST PACE Home Care / P[facility] Home Visit [facility] [place] [facility] [address] [place] [phone] My Phillips 02/07/2025 9:30 AM EST PACE Home Care / PACE Home Visit [facility] [place] [facility] [address] [place] [phone] Merlin Forbes 02/07/2025 6:00 PM EST PACE Home Care / PACE Home Visit [facility] [place] [facility] [address] [place] [phone] My Phillips 02/10/2025 9:30 AM EST PACE Home Care / P[facility] Home Visit [facility] [place] [facility] [address] [place] [phone] Merlin Forbes 02/10/2025 6:00 PM EST PACE Home Care / PACE Home Visit [facility] [address] [place] [phone] My Phillips 02/11/2025 7:00 AM EST Clinical Support [facility] [address] [place] [phone] Nkechi Grajeda, EDD 02/11/2025 9:30 AM EST PACE Home Care / PACE Home Visit [facility] [address] [place] [phone] Merlin Forbes 02/11/2025 6:00 PM EST PACE Home Care / PACE Home Visit [facility] [address] [place] [phone] My Phillips 02/12/2025 10:00 AM EST PACE Home Care / PACE Home Visit [facility] [address] [place] [phone] Merlin Forbes 02/12/2025 6:00 PM EST PACE Home Care / PACE Home Visit [facility] [address] [place] [phone] My Phillips 02/13/2025 10:30 AM EST PACE Home Care / PACE Home Visit [facility] [address] [place] [phone] Merlin Forbes 02/13/2025 6:00 PM EST PACE Home Care / PACE Home Visit [facility] [address] [place] [phone] My Phillips 02/18/2025 7:00 AM EST Clinical Support [facility] [address] [place] [phone] Nkechi Grajeda, EDD 02/25/2025 7:00 AM EST Clinical Support [facility] [place] [facility] [address] [phone] Nkechi Grajeda, EDD 02/27/2025 10:40 AM EST Clinical Support [facility] [place] [address] [place] [phone] 03/04/2025 7:00 AM EST Clinical Support [facility] [place] [address] [phone] Nkechi Grajeda, EDD 03/04/2025 8:15 AM EST Clinical Support [facility] [place] [facility] [address] [phone] Nkechi Grajeda, EDD 03/11/2025 7:00 AM EST Clinical Support [facility] [place] [facility] [address] [phone] Nkechi Grajeda, EDD 03/18/2025 7:00 AM EST Clinical Support [facility] [place] [facility] [address] [phone] Nkechi Grajeda, EDD 03/25/2025 7:00 AM EST Clinical Support [facility] [place] [facility] [address] [phone] Nkechi Grajeda, EDD 04/01/2025 7:00 AM EST Clinical Support [facility] [place] [facility] [address] [phone] Nkechi Grajeda, EDD 04/01/2025 8:15 AM EST Clinical Support [facility] [place] [facility] [address] [place] [phone] Nkechi Grajeda, EDD 04/08/2025 7:00 AM EST Clinical Support [facility] [place] [address] [phone] Nkechi Grajeda, EDD 04/14/2025 9:25 AM EST Office Visit [facility] [address] [facility] [address] [place] [address] Dillon Mendosa MD [address] [place] [address] [place] [phone] 04/15/2025 7:00 AM EST Clinical Support [facility] [place] [address] [phone] Nkechi Grajeda, EDD 04/22/2025 7:00 AM EST Clinical Support [facility] [place] [facility] [address] [phone] Nkechi Grajeda, EDD 04/29/2025 7:00 AM EST Clinical Support [facility] [place] [facility] [address] [phone] Nkechi Grajeda, EDD 04/29/2025 8:15 AM EST Clinical Support [facility] [place] [facility] [address] [phone] Nkechi Grajeda, EDD 05/06/2025 7:00 AM EST Clinical Support [facility] [place] [facility] [address] [phone] Nkechi Grajeda, EDD 05/13/2025 7:00 AM EST Clinical Support [facility] [place] [facility] [address] [phone] Nkechi Grajeda, EDD 05/20/2025 7:00 AM EST Clinical Support [facility] [place] [facility] [address] [phone] Nkechi Grajeda, EDD 05/27/2025 7:00 AM EDT Clinical Support [facility] [place] [facility] [address] [phone] Nkechi Grajeda, EDD 05/27/2025 8:15 AM EDT Clinical Support [facility] [place] [facility] [address] [phone] Nkechi Grajeda, EDD 06/03/2025 7:00 AM EDT Clinical Support [facility] [place] [facility] [address] [place] [phone] Nkechi Grajeda, EDD 06/10/2025 7:00 AM EDT Clinical Support [facility] [place] [facility] [address] [place] [phone] Nkechi Grajeda, EDD 06/17/2025 7:00 AM EDT Clinical Support [facility] [place] [facility] [address] [place] [phone] Nkechi Grajeda, EDD 06/24/2025 7:00 AM EDT Clinical Support [facility] [place] [facility] [address] [place] [phone] Nkechi Grajeda, EDD 06/24/2025 8:15 AM EDT Clinical Support [facility] [place] [facility] [address] [phone] Nkechi Grajeda, EDD 07/01/2025 7:00 AM EDT Clinical Support [facility] [place] [facility] [address] [place] [phone] Nkechi Grajeda, EDD 07/08/2025 7:00 AM EDT Clinical Support [facility] [address] [place] [phone] Nkechi Grajeda, RN 07/15/2025 7:00 AM EDT Clinical Support [facility] [place] [facility] [address] [place] [phone] Nkechi Grajeda, RN 07/22/2025 8:15 AM EDT Clinical Support [facility] [place] [facility] [address] [place] [phone] Nkechi Grajeda, EDD 08/19/2025 8:15 AM EDT Clinical Support [facility] [place] [facility] [address] [place] [phone] DoNkechi garsia RN 09/16/2025 8:15 AM EDT Clinical Support [address] [phone] Nkechi Grajeda RN 10/14/2025 8:15 AM EDT Clinical Support [address] [phone] Nkechi Grajeda RN 11/11/2025 8:15 AM EDT Clinical Support [address] [phone] Nkechi Grajeda RN 12/09/2025 8:15 AM EDT Clinical Support [address] [phone] Nkechi Grajeda, EDD documented as of this encounter Visit Diagnoses Not on filedocumented in this encounter Additional Health Concerns Assessment Noted Time PHQ-9 Depression Total Score: 20 025 12:16 PM EDT documented as of this encounter Care Teams Excellence Manager Relationship Specialty Start Date End Date Deloris Tobias NP [address] [place] [phone] PCP - General Family Medicine 12/01/24 documented as of this encounter
--- OUTSIDE RECORDS SUMMARY | 2024-12-14 12:30 | XMS_ITS | Encounter Summary ---
Author Organization [facility] Address [address] [place] [address] Care Team Providers Care Research Subject Name Role Phone Deloris Tobias CHIEF CONCIERGE Primary Care Provider [phone] Encounter Details Date Type Department Care Team (Late st Contact Info) Description 12/14/2024 12:30 PM EDT [facility] Clinic [address] [place] [phone] Alexandra Arce LPN Social History Tobacco Use Types Packs/Day Years [...] on file documented as of this encounter Progress Notes * Alexandra Arce LPN - 12/14/2024 12:30 PM EDT PAR present and functioning at baseline, wound care provided as directed, PAR refused KESHIA wraps. States he was going outside to meet people. Stated there was no medications delivered while he was hospitalized. Will continue to follow at [facility] documented in this encounter Plan of Treatment Upcoming Encounters Date Type Department Care Team (Late st Contact Info) Description 12/16/2024 9:30 AM EDT PACE Home Care / PACE Home Visit Emilee [facility]ONEY [facility] [address] [place] [phone] Merlin Forbes 12/16/2024 11:00 AM EDT Office Visit [facility] [place] [facility] [address] [place] [phone] Deloris Tobias NP [address] [place] [address] 12/16/2024 6:00 PM EDT PACE Home Care / PACE Home Visit Emilee [facility]ONE[facility] [address] [place] [phone] My Phillips 12/17/2024 7:00 AM EDT Clinical Support [facility] [place] [facility] [address] [place] [phone] Nkechi Grajeda RN 12/17/2024 9:30 AM EDT PACE Home Care / PACE Home Visit Emilee [facility] [address] [place] [phone] Merlin Forbes 12/17/2024 11:00 AM EDT Treatment Emilee MAHONEY MA Occupational Therapy [address] [place] [phone] Tyler Ling OT 12/17/2024 6:00 PM EDT PACE Home Care / PACE Home Visit Emilee MAHONEY [facility] [address] [place] [phone] My hPillips 12/18/2024 10:00 AM EDT PACE Home Care / PACE Home Visit Emilee [facility]HONEY [facility] [address] [place] [phone] Merlin Forbes 12/18/2024 6:00 PM EDT PACE Home Care / PACE Home Visit Emilee [facility]ONEY [facility] [address] [place] [phone] My Phillips 12/19/2024 10:30 AM EDT PACE Home Care / PACE Home Visit Emilee [facility]HONEY [facility] [address] [place] [phone] Merlin Forbes 12/19/2024 6:00 PM EDT PACE Home Care / PACE Home Visit Emilee MAHONEY [facility] [address] [place] [phone] My Phillips 12/20/2024 9:00 AM EDT Appointment [address] [address] 12/20/2024 9:30 AM EDT PACE Home Care / PACE Home Visit Emilee MAHONEY [facility] [address] [place] [phone] Merlin Forbes 12/20/2024 6:00 PM EDT PACE Home Care / PACE Home Visit Emilee MA[facility]ONEY [facility] [address] [place] [phone] My Phillips 12/21/2024 8:30 AM EDT PACE Home Care / PACE Home Visit Emilee [facility]HONEY [facility] [address] [place] [phone] Anabelle Valdez 12/22/2024 8:30 AM EDT PACE Home Care / PACE Home Visit Emilee [facility]ONEY [facility] [address] [place] [address], [place] [address] Anabelle Valdez 12/23/2024 9:30 AM EDT PACE Home Care / PACE Home Visit Emilee [facility]ONEY [facility] [address] [place] [address] Merlin Forbes 12/23/2024 6:00 PM EDT PACE Home Care / PACE Home Visit Emilee MAHONEY [facility] [address] [place] [address] My Phillips 12/24/2024 7:00 AM EDT Clinical Support [facility] [place] [facility] [address] [place] [phone] Nkechi Grajeda RN 12/24/2024 9:30 AM EDT PACE Home Care / PACE Home Visit Emilee [facility]ONE[facility] [address] [place] [phone] Merlin Forbes 12/24/2024 6:00 PM EDT PACE Home Care / PACE Home Visit Emilee MAHONEY [facility] [address] [place] [phone] My Phillips 12/25/2024 10:00 AM EDT PACE Home Care / PACE Home Visit Emilee [facility]ONEY [facility] [address] [place] [phone] Merlin Forbes 12/25/2024 6:00 PM EDT PACE Home Care / PACE Home Visit Emilee MAHONEY [facility] [address] [place] [phone] My Phillips 12/26/2024 10:40 AM EDT Clinical Support Emilee MAHONEY MA [address] [place] [phone] 12/26/2024 6:00 PM EDT PACE Home Care / PACE Home Visit Emilee [facility]ONEY [facility] [address] [place] [phone] My Phillips 12/27/2024 9:30 AM EDT PACE Home Care / PACE Home Visit Emilee [facility]HONEY [facility] [address] [place] [address] Merlin Forbes 12/27/2024 6:00 PM EDT PACE Home Care / PACE Home Visit Emilee MAHONEY [facility] [address] [place] [address] My Phillips 12/30/2024 9:30 AM EDT PACE Home Care / PACE Home Visit Emilee [facility]ONEY [facility] [address] [place] [phone] Merlin Forbes 12/30/2024 6:00 PM EDT PACE Home Care / PACE Home Visit Emilee MAHONEY [facility] [address] [place] [phone] My Phillips 12/31/2024 7:00 AM EDT Clinical Support [facility] [place] [facility] [address] [place] [phone] Nkechi Grajeda RN 12/31/2024 9:30 AM EDT PACE Home Care / PACE Home Visit Emilee [facility]ONEY [facility] [address] [place] [phone] Merlin Forbes 12/31/2024 10:00 AM EDT Ancillary Procedure [facility] [address] [place] [address] 12/31/2024 6:00 PM EDT PACE Home Care / PACE Home Visit Emilee MAHONEY [facility] [address] [place] [address] My Phillips 01/01/2025 10:00 AM EDT PACE Home Care / PACE Home Visit Emilee [facility]ONEY [facility] [address] [place] [address] Merlin Forbes 01/01/2025 6:00 PM EDT PACE Home Care / PACE Home Visit Emilee MA[facility]ONEY [facility] [address] [place] [address] My Phillips 01/02/2025 10:30 AM EDT PACE Home Care / PACE Home Visit Emilee MAHONEY [facility] [address] [place] [address] Merlin Forbes 01/02/2025 3:00 PM EDT Clinical Support Emilee MAHONEY [place] [address] [place] [address] 01/02/2025 6:00 PM EDT PACE Home Care / PACE Home Visit Emilee [facility]ONEY [facility] [address] [place] [phone] My Phillips 01/03/2025 9:30 AM EDT PACE Home Care / PACE Home Visit Emilee MAHONEY [facility] [address] [place] [phone] Merlin Forbes 01/03/2025 6:00 PM EDT PACE Home Care / PACE Home Visit Emilee MAHONEY [facility] [address] [place] [phone] My Phillips 01/04/2025 8:30 AM EDT PACE Home Care / PACE Home Visit Emilee [facility]ONE[facility] [address] [place] [phone] Anabelle Valdez 01/05/2025 8:30 AM EDT PACE Home Care / PACE Home Visit Emilee [facility]ONE[facility] [address] [place] [phone] Anabelle Valdez 01/06/2025 9:30 AM EDT PACE Home Care / PACE Home Visit Emilee MAHONEY [facility] [address] [place] [phone] Merlin Forbes 01/06/2025 6:00 PM EDT PACE Home Care / PACE Home Visit Emilee MAHONEY [facility] [address] [place] [phone] My Phillips 01/07/2025 7:00 AM EDT Clinical Support [facility] [place] [facility] [address] [place] [phone] Nkechi Grajeda, EDD 01/07/2025 8:15 AM EDT Clinical Support [facility] [place] [facility] [address] [place] [phone] Nkechi Grajeda, RN 01/07/2025 9:30 AM EDT PACE Home Care / PACE Home Visit Emilee [facility] [address] [place] [phone] Merlin Forbes 01/07/2025 6:00 PM EDT PACE Home Care / PACE Home Visit Emilee MAHONEY [facility] [address] [place] [phone] My Phillips 01/08/2025 10:00 AM EDT PACE Home Care / PACE Home Visit Emilee MA[facility]ONEY [facility] [address] [place] [phone] Merlin Forbes 01/08/2025 6:00 PM EDT PACE Home Care / PACE Home Visit Emilee [facility]ONEY [facility] [address] [place] [phone] My Phillips 01/09/2025 10:30 AM EDT PACE Home Care / PACE Home Visit Emilee MAHONEY [facility] [address] [place] [phone] Merlin Forbes 01/09/2025 6:00 PM EDT PACE Home Care / PACE Home Visit Emilee MAHONEY [facility] [address] [place] [address] My Phillips 01/10/2025 9:30 AM EDT PACE Home Care / PACE Home Visit Emilee MAHONEY [facility] [address] [place] [address] Merlin Forbes 01/10/2025 10:00 AM EDT Clinical Support Emilee MAHONEY [place] [address] [place] [address] 01/10/2025 6:00 PM EDT PACE Home Care / PACE Home Visit Emilee MAHONEY [facility] [address] [place] [phone] My Phillips 01/13/2025 9:30 AM EDT PACE Home Care / PACE Home Visit Emilee MAHONEY [facility] [address] [place] [phone] Merlin Forbes 01/13/2025 6:00 PM EDT PACE Home Care / PACE Home Visit Emilee MAHONEY [facility] [address] [place] [phone] My Phillips 01/14/2025 7:00 AM EDT Clinical Support [facility] [place] [facility] [address] [place] [phone] Nkechi Grajeda RN 01/14/2025 9:30 AM EDT PACE Home Care / PACE Home Visit Emilee [facility]ONEY [facility] [address] [place] [phone] Merlin Forbes 01/14/2025 6:00 PM EDT PACE Home Care / PACE Home Visit Emilee MAHONEY [facility] [address] [place] [phone] My Phillips 01/15/2025 10:00 AM EDT PACE Home Care / PACE Home Visit Emilee MA[facility]ONEY [facility] [address] [place] [phone] Merlin Forbes 01/15/2025 6:00 PM EDT PACE Home Care / PACE Home Visit Emilee MAHONEY [facility] [address] [place] [phone] My Phillips 01/16/2025 10:30 AM EDT PACE Home Care / PACE Home Visit Emilee MAHONEY [facility] [address] [place] [phone] Merlin Forbes 01/16/2025 6:00 PM EDT PACE Home Care / PACE Home Visit Emilee MAHONEY [facility] [address] [place] [phone] My Phillips 01/17/2025 9:30 AM EDT PACE Home Care / PACE Home Visit Emilee MAHONEY [facility] [address] [place] [phone] Merlin Forbes 01/17/2025 6:00 PM EDT PACE Home Care / PACE Home Visit Emilee MAHONEY [facility] [address] [place] [phone] My Phillips 01/18/2025 8:30 AM EDT PACE Home Care / PACE Home Visit Emilee MAHONEY [facility] [address] [place] [phone] Anabelle Valdez 01/19/2025 8:30 AM EST PACE Home Care / PACE Home Visit Emilee [facility]ONEY [facility] [address] [place] [phone] Anabelle Valdez 01/20/2025 9:30 AM EST PACE Home Care / PACE Home Visit Emilee MA[facility]ONEY [facility] [address] [place] [phone] Merlin Forbes 01/20/2025 6:00 PM EST PACE Home Care / PACE Home Visit Emilee MAHONEY [facility] [address] [place] [address] My Phillips 01/21/2025 7:00 AM EST Clinical Support [facility] [address] [place] [address] Nkechi Grajeda RN 01/21/2025 9:30 AM EST PACE Home Care / PACE Home Visit Emilee [facility]ONEY [facility] [address] [place] [address] Merlin Forbes 01/21/2025 10:45 AM EST Clinical Support Emilee MAHONEY [place] [address] [place] [address] 01/21/2025 6:00 PM EST PACE Home Care / PACE Home Visit Emilee [facility]ONEY [facility] [address] [place] [address] My Phillips 01/22/2025 10:00 AM EST PACE Home Care / PACE Home Visit Emilee MA[facility]ONEY [facility] [address] [place] [address] Merlin Frobes 01/22/2025 6:00 PM EST PACE Home Care / PACE Home Visit Emilee [facility]ONEY [facility] [address] [place] [address] My Phillips 01/23/2025 10:30 AM EST PACE Home Care / PACE Home Visit Emilee MA[facility]ONEY [facility] [address] [place] [address] Merlin Forbes 01/23/2025 6:00 PM EST PACE Home Care / PACE Home Visit Emilee MA[facility]ONEY [facility] [address] [place] [address] My Phillips 01/24/2025 9:30 AM EST PACE Home Care / PACE Home Visit Emilee MA[facility]Y [facility] [address] [place] [address] Merlin Forbes 01/24/2025 6:00 PM EST PACE Home Care / PACE Home Visit Emilee MAHONEY [facility] [address] [place] [address] My Phillips 01/27/2025 9:30 AM EST PACE Home Care / PACE Home Visit Emilee [facility]Y [facility] [address] [place] [address] Merlin Forbes 01/27/2025 6:00 PM EST PACE Home Care / PACE Home Visit Emilee MA[facility]ONEY [facility] [address] [place] [address] My Phillips 01/28/2025 7:00 AM EST Clinical Support [facility] [place] [facility] [address] [place] [phone] Nkechi Grajeda RN 01/28/2025 9:30 AM EST PACE Home Care / PACE Home Visit Em[facility] [address] [place] [phone] Merlin Forbes 01/28/2025 6:00 PM EST PACE Home Care / PACE Home Visit Em[facility] [address] [place] [phone] My Phillips 01/29/2025 10:00 AM EST PACE Home Care / PACE Home Visit Emilee [facility] [address] [place] [address] Merlin Forbes 01/29/2025 6:00 PM EST PACE Home Care / PACE Home Visit Em[facility] [address] [place] [address] My Phillips 01/30/2025 10:30 AM EST PACE Home Care / PACE Home Visit Em[facility] [address] [place] [address] Merlin Forbes 01/30/2025 6:00 PM EST PACE Home Care / PACE Home Visit Emilee [facility] [address] [place] [address] My Phillips 01/31/2025 9:30 AM EST PACE Home Care / PACE Home Visit Em[facility] [address] [place] [address] Merlin Forbes 01/31/2025 11:00 AM EST PACE External Visit Emilee MAHONEY [place] [address] [place] [address] 01/31/2025 6:00 PM EST PACE Home Care / PACE Home Visit Em[facility] [address] [place] [address] My Phillips 02/01/2025 8:30 AM EST PACE Home Care / PACE Home Visit Em[facility] [address] [place] [address] Anabelle Valdez 02/02/2025 8:30 AM EST PACE Home Care / PACE Home Visit Em[facility] [address] [place] [phone] Anabelle Valdez 02/03/2025 9:30 AM EST PACE Home Care / PACE Home Visit Em[facility] [address] [place] [address] Merlin Forbes 02/03/2025 6:00 PM EST PACE Home Care / PACE Home Visit Em[facility] [address] [place] [address] My Phillips 02/04/2025 7:00 AM EST Clinical Support [facility] [place] [facility] [address] [place] [address] Nkechi Grajeda RN 02/04/2025 8:15 AM EST Clinical Support [facility] [place] [facility] [address] [place] [address] Nkechi Grajeda RN 02/04/2025 9:30 AM EST PACE Home Care / PACE Home Visit Emilee [facility] [address] [place] [phone] Merlin Forbes 02/04/2025 6:00 PM EST PACE Home Care / PACE Home Visit Em[facility] [address] [place] [address] My Phillips 02/05/2025 10:00 AM EST PACE Home Care / PACE Home Visit Em[facility] [address] [place] [phone] Merlin Forbes 02/05/2025 6:00 PM EST PACE Home Care / PACE Home Visit Em[facility] [address] [place] [phone] My Phillips 02/06/2025 10:30 AM EST PACE Home Care / PACE Home Visit Em[facility] [address] [place] [phone] Merlin Forbes 02/06/2025 6:00 PM EST PACE Home Care / PACE Home Visit Emilee [facility] [address] [place] [phone] My Phillips 02/07/2025 9:30 AM EST PACE Home Care / PACE Home Visit Emilee [facility] [address] [place] [phone] Merlin Forbes 02/07/2025 6:00 PM EST PACE Home Care / PACE Home Visit Em[facility] [address] [place] [address] My Phillips 02/10/2025 9:30 AM EST PACE Home Care / PACE Home Visit Em[facility] [address] [place] [address] Merlin Forbes 02/10/2025 6:00 PM EST PACE Home Care / PACE Home Visit Em[facility] [address] [place] [address] My Phillips 02/11/2025 7:00 AM EST Clinical Support [facility] [place] [facility] [address] [place] [address] Nkechi Grajeda RN 02/11/2025 9:30 AM EST PACE Home Care / PACE Home Visit [facility] [address] [place] [address] Merlin Forbes 02/11/2025 6:00 PM EST PACE Home Care / PACE Home Visit Em[facility] [address] [place] [phone] My Phillips 02/12/2025 10:00 AM EST PACE Home Care / PACE Home Visit Em[facility] [address] [place] [address] Merlin Forbes 02/12/2025 6:00 PM EST PACE Home Care / PACE Home Visit Em[facility] [address] [place] [phone] My Phillips 02/13/2025 10:30 AM EST PACE Home Care / PACE Home Visit Em[facility] [address] [place] [phone] Merlin Forbes 02/13/2025 6:00 PM EST PACE Home Care / PACE Home Visit [facility] [place] [facility] [address] [place] [phone] My Phillips 02/18/2025 7:00 AM EST Clinical Support [facility] [place] [facility] [address] [place] [phone] Nkechi Grajeda, EDD 02/25/2025 7:00 AM EST Clinical Support [facility] [place] [facility] [address] [place] [phone] Nkechi Grajeda, EDD 02/27/2025 10:40 AM EST Clinical Support [facility] [place] [address] [place] [phone] 03/04/2025 7:00 AM EST Clinical Support [facility] [place] [facility] [address] [place] [phone] Nkechi Grajeda, EDD 03/04/2025 8:15 AM EST Clinical Support [facility] [place] [facility] [address] [place] [phone] Nkechi Grajdea, EDD 03/11/2025 7:00 AM EST Clinical Support [facility] [place] [facility] [address] [place] [phone] Nkechi Grajeda, EDD 03/18/2025 7:00 AM EST Clinical Support [facility] [place] [facility] [address] [place] [phone] Nkechi Grajeda, EDD 03/25/2025 7:00 AM EST Clinical Support [facility] [place] [facility] [address] [place] [phone] Nkechi Grajeda, EDD 04/01/2025 7:00 AM EST Clinical Support [facility] [place] [facility] [address] [place] [phone] Nkechi Grajeda, EDD 04/01/2025 8:15 AM EST Clinical Support [facility] [place] [facility] [address] [place] [address] [place] [address] Nkechi Grajeda RN 04/08/2025 7:00 AM EST Clinical Support [facility] [place] [facility] [address] [address] Nkechi Grajeda, EDD 04/14/2025 9:25 AM EST Office Visit [facility] [address] [place] [address] Dillon Mendosa MD [address] [place] [address] [place] [address] 04/15/2025 7:00 AM EST Clinical Support [facility] [place] [facility] [address] [address] Nkechi Grajeda RN 04/22/2025 7:00 AM EST Clinical Support [facility] [place] [facility] [address] [address] Nkechi Grajeda RN 04/29/2025 7:00 AM EST Clinical Support [facility] [place] [facility] [address] [address] Nkechi Grajeda, EDD 04/29/2025 8:15 AM EST Clinical Support [facility] [place] [facility] [address] [address] Nkechi Grajeda, EDD 05/06/2025 7:00 AM EST Clinical Support [facility] [place] [facility] [address] [address] Nkechi Grajeda, EDD 05/13/2025 7:00 AM EST Clinical Support [facility] [place] [facility] [address] [address] Nkechi Grajeda, EDD 05/20/2025 7:00 AM EST Clinical Support [facility] [place] [facility] [address] [address] Nkechi Grajeda, EDD 05/27/2025 7:00 AM EDT Clinical Support [facility] [place] [facility] [address] [place] [phone] Nkechi Grajeda, RN 05/27/2025 8:15 AM EDT Clinical Support [facility] [place] [facility] [address] [place] [phone] Nkechi Grajeda, EDD 06/03/2025 7:00 AM EDT Clinical Support [facility] [place] [facility] [address] [place] [phone] Nkechi Grajeda, RN 06/10/2025 7:00 AM EDT Clinical Support [facility] [place] [facility] [address] [place] [phone] Nkechi Grajeda, EDD 06/17/2025 7:00 AM EDT Clinical Support [facility] [place] [facility] [address] [address] Nkechi Grajeda, EDD 06/24/2025 7:00 AM EDT Clinical Support [facility] [place] [facility] [address] [place] [phone] Nkechi Grajeda, EDD 06/24/2025 8:15 AM EDT Clinical Support [facility] [place] [facility] [address] [place] [phone] Nkechi Grajeda, RN 07/01/2025 7:00 AM EDT Clinical Support [facility] [place] [facility] [address] [place] [phone] Nkechi Grajeda, RN 07/08/2025 7:00 AM EDT Clinical Support [facility] [place] [facility] [address] [place] [phone] Nkechi Grajeda, RN 07/15/2025 7:00 AM EDT Clinical Support [facility] [place] [facility] [address] [place] [phone] Nkechi Grajeda, EDD 07/22/2025 8:15 AM EDT Clinical Support [address] [address] Nkechi Grajeda, EDD 08/19/2025 8:15 AM EDT Clinical Support [address] [address] Nkechi Grajeda, EDD 09/16/2025 8:15 AM EDT Clinical Support [address] [address] Nkechi Grajeda, EDD 10/14/2025 8:15 AM EDT Clinical Support [address] [address] Nkechi Grajeda, EDD 11/11/2025 8:15 AM EDT Clinical Support [address] [address] Nkechi Grajeda, EDD 12/09/2025 8:15 AM EDT Clinical Support [address] [address] Nkechi Grajeda, RN documented as of this encounter Visit Diagnoses Not on filedocumented in this encounter Additional Health Concerns Assessment Noted Time PHQ-9 Depression Total Score: 20 12/11/ 025 12:16 PM EDT documented as of this encounter Care Teams Research Subject Relationship Specialty Start Date End Date Deloris Tobias NP [address] [place] [phone] PCP - General Family Medicine 12/01/24 documented as of this encounter
--- NOTE | 2024-12-16 | ECG_ITS ---
Test Reason : BRADYCARDIA,SOB Blood Pressure : */* mmHG Vent. Rate : 54 BPM Atrial Rate : 54 BPM P-R Int : 220 ms QRS Dur : 108 ms QT Int : 448 ms P-R-T Axes : 32 70 8 degrees QTcB Int : 424 ms Sinus bradycardia with 1st degree A-V block with frequent Premature ventricular complexes Low voltage QRS Abnormal ECG No previous ECGs available Referred By: Generic ED Physician Electronically Signed By: RADHA RICCI
--- NOTE | ~2024-12-16 | XR_ITS ---
CLINICAL HISTORY: dyspnea 2 view chest x-ray. Comparison: None provided Findings: There is subsegmental left basilar atelectasis. Lungs appear otherwise clear. Cardiac silhouette appears mildly enlarged. Defibrillator lead is in the right ventricle. Patient is status post median sternotomy. IMPRESSION: No acute cardiopulmonary abnormality. This document has been electronically signed by: Yahir Red MD on 12/16/2024 05:00:27
[2024-12-16 03:31] VITALS: BP 112/63; BP 122/78; PULSE 56; PULSE 57; RESP 18; O2SAT 93; O2SAT 95; BMI 46.6
--- NOTE | 2024-12-16 04:02 | PC.NURSE ---
pt biba from home, a&ox4, respirations even and unlabored. pt reports trouble sleeping due to shortness of breath, reports checking o2 sat and seeing less than 90%, on ems arrival pt was sating over 95%. pt reports he has been having increased anxiety and took ativan without relief. pt reports being seen at [facility] and [facility] and discharged without a diagnosis. MD Dimas at bedside. vss.
[2024-12-16 04:16] LABS: Hematocrit 46.8 % (42.0-52.0); Hemoglobin 15.1 g/dl (14.0-18.0); Imm Gran Abs Auto 0.03 X10*3/uL (0.00-0.03); Imm Gran Pct Auto 0.3 % (0.0-0.4); Lymphocytes Absolute Auto 2.4 X10*3/uL (1.2-4.9); MANUAL DIFF FLAG NO; Mean Corpuscular HGB Conc 32.3 g/dl (31.0-36.0); Mean Corpuscular Hemoglobin 27.5 pg (27.0-33.0); Mean Corpuscular Volume 85.1 fL (80.0-98.0); NRBC Abs Auto 0.000 X10*3/uL (0.0-0.012); NRBC Pct Auto 0.0 /100WBC (0.0-0.2); Platelet Count 166 X10*3/uL (160-400); Red Blood Count 5.50 X10*6/uL (4.60-5.80); White Blood Count 8.9 X10*3/uL (4.8-10.8)
--- OUTSIDE RECORDS SUMMARY | 2024-12-16 04:25 | XMS_ITS | Encounter Summary ---
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 Reports felling fidgety and SOB and couldn't find the medicine he supposed to take for anxiety? Review deep breathing and relaxation techniques over the phone as he did eventually become calm. Par would need medication ordered to assist with anxiety flare ups. IDT to f/u. Encounter Details Date Type Department Care Team (Late st Contact Info) Description 11/08/2024 PACE On-Call [facility] [address] [place] [phone] Rich Mehta NP [address] [facility] 1 [place], [place] [id number] Social History Tobacco Use Types Packs/Day Years [...] as of this encounter Progress Notes * Nora Mauricio RN - 11/08/2024 8:34 AM EDT IDT aware, home care to f/u documented in this encounter Plan of Treatment Upcoming Encounters Date Type Department Care Team (Late st Contact Info) Description 12/16/2024 9:30 AM EDT PACE Home Care / PACE Home Visit [facility] [address] [place] [phone] Merlin Forbes 12/16/2024 11:00 AM EDT Office Visit [facility] [place] [facility] [address] [place] [phone] Deloris Tobias NP [address] [address] 12/16/2024 6:00 PM EDT PACE Home Care / PACE Home Visit [facility] [address] [place] [phone] My Phillips 12/17/2024 7:00 AM EDT Clinical Support [facility] [place] [facility] [address] [place] [phone] Nkechi Grajeda RN 12/17/2024 9:30 AM EDT PACE Home Care / PACE Home Visit [facility] [address] [place] [phone] Merlin Forbes 12/17/2024 11:00 AM EDT [facility] [address] [place] [phone] Tyler Ling OT 12/17/2024 6:00 PM EDT PACE Home Care / PACE Home Visit [facility] [address] [place] [phone] My Phillips 12/18/2024 10:00 AM EDT PACE Home Care / PACE Home Visit [facility] [address] [place] [phone] Merlin Forbes 12/18/2024 6:00 PM EDT PACE Home Care / PACE Home Visit [facility] [address] [place] [phone] My Phillips 12/19/2024 10:30 AM EDT PACE Home Care / PACE Home Visit [facility] [address] [place] [phone] Merlin Forbes 12/19/2024 6:00 PM EDT PACE Home Care / PACE Home Visit [facility] [address] [place] [phone] My Phillips 12/20/2024 9:00 AM EDT Appointment [address] [address] 12/20/2024 9:30 AM EDT PACE Home Care / PACE Home Visit [facility] [address] [place] [phone] Merlin Forbes 12/20/2024 6:00 PM EDT PACE Home Care / PACE Home Visit [facility] [address] [place] [phone] My Phillips 12/21/2024 8:30 AM EDT PACE Home Care / PACE Home Visit [facility] [address] [place] [phone] Anabelle Valdez 12/22/2024 8:30 AM EDT PACE Home Care / PACE Home Visit [facility] [address] [place] [phone] Anabelle Valdez 12/23/2024 9:30 AM EDT PACE Home Care / PACE Home Visit [facility] [address] [place] [phone] Merlin Forbes 12/23/2024 6:00 PM EDT PACE Home Care / PACE Home Visit [facility] [address] [place] [phone] My Phillips 12/24/2024 7:00 AM EDT Clinical Support [facility] [place] [facility] [address] [place] [phone] Nkechi Grajeda RN 12/24/2024 9:30 AM EDT PACE Home Care / PACE Home Visit [facility] [address] [place] [phone] Merlin Forbes 12/24/2024 6:00 PM EDT PACE Home Care / PACE Home Visit [facility] [address] [place] [phone] My Phillips 12/25/2024 10:00 AM EDT PACE Home Care / PACE Home Visit [facility] [address] [place] [phone] Merlin Forbes 12/25/2024 6:00 PM EDT PACE Home Care / PACE Home Visit [facility] [address] [place] [phone] My Phillips 12/26/2024 10:40 AM EDT Clinical Support Emilee MAHONEY MA [address] [place] [phone] 12/26/2024 6:00 PM EDT PACE Home Care / PACE Home Visit [facility] [address] [place] [phone] My Phillips 12/27/2024 9:30 AM EDT PACE Home Care / PACE Home Visit [facility] [address] [place] [address] Merlin Forbes 12/27/2024 6:00 PM EDT PACE Home Care / PACE Home Visit [facility] [address] [place] [phone] My Phillips 12/30/2024 9:30 AM EDT PACE Home Care / PACE Home Visit [facility] [address] [place] [phone] Merlin Forbes 12/30/2024 6:00 PM EDT PACE Home Care / PACE Home Visit [facility] [address] [place] [phone] My Phillips 12/31/2024 7:00 AM EDT Clinical Support [facility] [place] [facility] [address] [place] [phone] Nkechi Grajeda RN 12/31/2024 9:30 AM EDT PACE Home Care / PACE Home Visit [facility] [address] [place] [address] Merlin Forbes 12/31/2024 10:00 AM EDT Ancillary Procedure [facility] [address] [place] [address] 12/31/2024 6:00 PM EDT PACE Home Care / PACE Home Visit Em[facility] [address] [place] [address] My Phillips 01/01/2025 10:00 AM EDT PACE Home Care / PACE Home Visit [facility] [address] [place] [phone] Merlin Forbes 01/01/2025 6:00 PM EDT PACE Home Care / PACE Home Visit [facility] [address] [place] [phone] My Phillips 01/02/2025 10:30 AM EDT PACE Home Care / PACE Home Visit [facility] [address] [place] [phone] Merlin Forbes 01/02/2025 3:00 PM EDT Clinical Support Emilee MAHONEY MA [address] [place] [phone] 01/02/2025 6:00 PM EDT PACE Home Care / PACE Home Visit [facility] [address] [place] [phone] My Phillips 01/03/2025 9:30 AM EDT PACE Home Care / PACE Home Visit [facility] [address] [place] [phone] Merlin Forbes 01/03/2025 6:00 PM EDT PACE Home Care / PACE Home Visit Em[facility] [address] [place] [phone] My Phillips 01/04/2025 8:30 AM EDT PACE Home Care / PACE Home Visit [facility] [address] [place] [phone] Anabelle Valdez 01/05/2025 8:30 AM EDT PACE Home Care / PACE Home Visit [facility] [address] [place] [phone] Anabelle Valdez 01/06/2025 9:30 AM EDT PACE Home Care / PACE Home Visit [facility] [address] [place] [phone] Merlin Forbes 01/06/2025 6:00 PM EDT PACE Home Care / PACE Home Visit [facility] [address] [place] [phone] My Phillips 01/07/2025 7:00 AM EDT Clinical Support [facility] [place] [facility] [address] [place] [phone] Nkechi Grajeda, EDD 01/07/2025 8:15 AM EDT Clinical Support [facility] [place] [facility] [address] [place] [phone] Nkechi Grajeda, EDD 01/07/2025 9:30 AM EDT PACE Home Care / PACE Home Visit [facility] [address] [place] [phone] Merlin Forbes 01/07/2025 6:00 PM EDT PACE Home Care / PACE Home Visit [facility] [address] [place] [phone] My Phillips 01/08/2025 10:00 AM EDT PACE Home Care / PACE Home Visit [facility] [address] [place] [phone] Merlin Forbes 01/08/2025 6:00 PM EDT PACE Home Care / PACE Home Visit [facility] [address] [place] [phone] My Phillips 01/09/2025 10:30 AM EDT PACE Home Care / PACE Home Visit [facility] [address] [place] [phone] Merlin Forbes 01/09/2025 6:00 PM EDT PACE Home Care / PACE Home Visit [facility] [address] [place] [phone] My Phillips 01/10/2025 9:30 AM EDT PACE Home Care / PACE Home Visit [facility] [address] [place] [phone] Merlin Forbes 01/10/2025 10:00 AM EDT Clinical Support Emilee MAH[facility]Y MA [address] [place] [phone] 01/10/2025 6:00 PM EDT PACE Home Care / PACE Home Visit [facility] [address] [place] [phone] My Phillips 01/13/2025 9:30 AM EDT PACE Home Care / PACE Home Visit [facility] [address] [place] [phone] Merlin Forbes 01/13/2025 6:00 PM EDT PACE Home Care / PACE Home Visit [facility] [address] [place] [phone] My Phillips 01/14/2025 7:00 AM EDT Clinical Support [facility] [place] [facility] [address] [place] [phone] Nkechi Grajeda, EDD 01/14/2025 9:30 AM EDT PACE Home Care / PACE Home Visit [facility] [address] [place] [phone] Merlin Forbes 01/14/2025 6:00 PM EDT PACE Home Care / PACE Home Visit [facility] [address] [place] [phone] My Phillips 01/15/2025 10:00 AM EDT PACE Home Care / PACE Home Visit [facility] [address] [place] [address] Merlin Forbes 01/15/2025 6:00 PM EDT PACE Home Care / PACE Home Visit [facility] [address] [place] [address] My Phillips 01/16/2025 10:30 AM EDT PACE Home Care / PACE Home Visit [facility] [address] [place] [phone] Merlin Forbes 01/16/2025 6:00 PM EDT PACE Home Care / PACE Home Visit [facility] [address] [place] [phone] My Phillips 01/17/2025 9:30 AM EDT PACE Home Care / PACE Home Visit [facility] [address] [place] [phone] Merlin Forbes 01/17/2025 6:00 PM EDT PACE Home Care / PACE Home Visit [facility] [address] [place] [phone] My Phillips 01/18/2025 8:30 AM EDT PACE Home Care / [facility]ACE Home Visit [facility] [address] [place] [address] Anabelle Valdez 01/19/2025 8:30 AM EST PACE Home Care / PACE Home Visit [facility] [address] [place] [address] Anabelle Valdez 01/20/2025 9:30 AM EST PACE Home Care / PACE Home Visit [facility] [address] [place] [address] Merlin Forbes 01/20/2025 6:00 PM EST PACE Home Care / PACE Home Visit [facility] [address] [place] [address] My Phillips 01/21/2025 7:00 AM EST Clinical Support [facility] [place] [facility] [address] [place] [address] Nkechi Grajeda RN 01/21/2025 9:30 AM EST PACE Home Care / PACE Home Visit [facility] [address] [place] [address] Merlin Forbes 01/21/2025 10:45 AM EST Clinical Support Emilee MAHONEY [place] [address] [place] [address] 01/21/2025 6:00 PM EST PACE Home Care / PACE Home Visit [facility] [address] [place] [phone] My Phillips 01/22/2025 10:00 AM EST PACE Home Care / PACE Home Visit [facility] [address] [place] [phone] Merlin Forbes 01/22/2025 6:00 PM EST PACE Home Care / PACE Home Visit [facility] [address] [place] [phone] My Phillips 01/23/2025 10:30 AM EST PACE Home Care / PACE Home Visit [facility] [address] [place] [address] Merlin Forbes 01/23/2025 6:00 PM EST PACE Home Care / PACE Home Visit [facility] [address] [place] [address] My Phillips 01/24/2025 9:30 AM EST PACE Home Care / PACE Home Visit [facility] [address] [place] [address] Merlin Forbes 01/24/2025 6:00 PM EST PACE Home Care / PACE Home Visit [facility] [address] [place] [address] My Phillips 01/27/2025 9:30 AM EST PACE Home Care / PACE Home Visit [facility] [address] [place] [address] Merlin Forbes 01/27/2025 6:00 PM EST PACE Home Care / PACE Home Visit [facility] [address] [place] [address] My Phillips 01/28/2025 7:00 AM EST Clinical Support [facility] [place] [facility] [address] [place] [address] Nkechi Grajeda RN 01/28/2025 9:30 AM EST PACE Home Care / PACE Home Visit [facility] [address] [place] [address] Merlin Forbes 01/28/2025 6:00 PM EST PACE Home Care / PACE Home Visit [facility] [address] [place] [address] My Phillips 01/29/2025 10:00 AM EST PACE Home Care / PACE Home Visit [facility] [place] [facility] [address] [place] [address] Merlin Forbes 01/29/2025 6:00 PM EST PACE Home Care / [facility] Visit [facility] [place] [facility] [address] [place] [address] My Phillips 01/30/2025 10:30 AM EST PACE Home Care / PACE Home Visit [facility] [address] [place] [address] Merlin Forbes 01/30/2025 6:00 PM EST PACE Home Care / [facility] Visit [facility] [address] [place] [address] My Phillips 01/31/2025 9:30 AM EST PACE Home Care / PACE Home Visit [facility] [address] [place] [address] Merlin Forbes 01/31/2025 11:00 AM EST PACE External Visit [facility] [place] [address] [place] [address] 01/31/2025 6:00 PM EST PACE Home Care / [facility]ACE Home Visit [facility] [place] [facility] [address] [place] [phone] My Phillips 02/01/2025 8:30 AM EST PACE Home Care / PACE Home Visit [facility] [place] [facility] [address] [place] [phone] Anabelle Valdez 02/02/2025 8:30 AM EST PACE Home Care / [facility] Visit [facility] [place] [facility] [address] [place] [phone] Anabelle Valdez 02/03/2025 9:30 AM EST PACE Home Care / [facility] Visit [facility] [place] [facility] [address] [place] [phone] Merlin Forbes 02/03/2025 6:00 PM EST PACE Home Care / [facility] Visit [facility] [place] [facility] [address] [place] [address] My Phillips 02/04/2025 7:00 AM EST Clinical Support [facility] [place] [facility] [address] [place] [address] Nkechi Grajeda, EDD 02/04/2025 8:15 AM EST Clinical Support [facility] [place] [facility] [address] [place] [phone] Nkechi Grajeda, EDD 02/04/2025 9:30 AM EST PACE Home Care / [facility] Home Visit [facility] [address] [place] [phone] Merlin Forbes 02/04/2025 6:00 PM EST PACE Home Care / P[facility] Home Visit [facility] [place] [facility] [address] [place] [phone] yM Phillips 02/05/2025 10:00 AM EST PACE Home Care / P[facility] Home Visit [facility] [place] [facility] [address] [place] [phone] Merlin Forbes 02/05/2025 6:00 PM EST PACE Home Care / P[facility] Visit [facility] [place] [facility] [address] [place] [phone] My Phillips 02/06/2025 10:30 AM EST PACE Home Care / P[facility] Home Visit [facility] [place] [facility] [address] [place] [phone] Merlin Forbes 02/06/2025 6:00 PM EST PACE Home Care / [facility] Home Visit [facility] [place] [facility] [address] [place] [phone] My Phillips 02/07/2025 9:30 AM EST PACE Home Care / P[facility] Home Visit [facility] [place] [facility] [address] [place] [address] Merlin Forbes 02/07/2025 6:00 PM EST PACE Home Care / PACE Home Visit [facility] [address] [place] [phone] My Phillips 02/10/2025 9:30 AM EST PACE Home Care / PACE Home Visit [facility] [address] [place] [phone] Merlin Forbes 02/10/2025 6:00 PM EST PACE Home Care / PACE Home Visit [facility] [address] [place] [phone] My Phillips 02/11/2025 7:00 AM EST Clinical Support [facility] [place] [facility] [address] [place] [phone] Nkechi Grajeda RN 02/11/2025 9:30 AM EST PACE Home Care / PACE Home Visit [facility] [address] [place] [phone] Merlin Forbes 02/11/2025 6:00 PM EST PACE Home Care / PACE Home Visit [facility] [address] [place] [phone] My Phillips 02/12/2025 10:00 AM EST PACE Home Care / PACE Home Visit [facility] [address] [place] [phone] Merlin Forbes 02/12/2025 6:00 PM EST PACE Home Care / [facility] Visit [facility] [address] [place] [phone] My Phillips 02/13/2025 10:30 AM EST PACE Home Care / [facility] Visit [facility] [place] [facility] [address] [place] [phone] Merlin Forbes 02/13/2025 6:00 PM EST PACE Home Care / P[facility] Visit [facility] [address] [place] [phone] My Phillips 02/18/2025 7:00 AM EST Clinical Support [facility] [place] [facility] [address] [place] [phone] Nkechi Grajeda, EDD 02/25/2025 7:00 AM EST Clinical Support [facility] [place] [facility] [address] [place] [phone] Nkechi Grajeda, EDD 02/27/2025 10:40 AM EST Clinical Support [facility] [place] [address] [place] [phone] 03/04/2025 7:00 AM EST Clinical Support [facility] [place] [facility] [address] [place] [phone] Nkechi Grajeda, EDD 03/04/2025 8:15 AM EST Clinical Support [facility] [place] [facility] [address] [place] [phone] Nkcehi Grajeda, EDD 03/11/2025 7:00 AM EST Clinical Support [facility] [place] [facility] [address] [place] [phone] Nkechi Grajeda, EDD 03/18/2025 7:00 AM EST Clinical Support [facility] [place] [facility] [address] [place] [phone] Nkechi Grajeda, EDD 03/25/2025 7:00 AM EST Clinical Support [facility] [place] [facility] [address] [place] [phone] Nkechi Grajeda, EDD 04/01/2025 7:00 AM EST Clinical Support [facility] [place] [facility] [address] [place] [phone] Nkechi Grajeda, EDD 04/01/2025 8:15 AM EST Clinical Support [facility] [place] [facility] [address] [place] [phone] Nkechi Grajeda, EDD 04/08/2025 7:00 AM EST Clinical Support [facility] [place] [address] [address] Nkechi Grajeda, EDD 04/14/2025 9:25 AM EST Office Visit [facility] [address] [place] [phone] Dillon Mendosa MD [address] [place] [address] [place] [address] 04/15/2025 7:00 AM EST Clinical Support [facility] [place] [facility] [address] [address] Nkechi Grajeda, EDD 04/22/2025 7:00 AM EST Clinical Support [facility] [place] [facility] [address] [address] Nkechi Grajeda, EDD 04/29/2025 7:00 AM EST Clinical Support [facility] [place] [facility] [address] [place] [phone] Nkechi Grajeda, EDD 04/29/2025 8:15 AM EST Clinical Support [facility] [place] [facility] [address] [place] [phone] Nkechi Grajeda, EDD 05/06/2025 7:00 AM EST Clinical Support [facility] [place] [facility] [address] [place] [phone] Nkechi Grajeda, EDD 05/13/2025 7:00 AM EST Clinical Support [facility] [place] [facility] [address] [address] Nkechi Grajeda, EDD 05/20/2025 7:00 AM EST Clinical Support [facility] [place] [facility] [address] [place] [phone] Nkechi Grajeda, EDD 05/27/2025 7:00 AM EDT Clinical Support [facility] [address] [place] [phone] Nkechi Grajeda, EDD 05/27/2025 8:15 AM EDT Clinical Support [facility] [address] [place] [phone] Nkechi Grajeda, EDD 06/03/2025 7:00 AM EDT Clinical Support [facility] [address] [place] [phone] Nkechi Grajeda, EDD 06/10/2025 7:00 AM EDT Clinical Support [facility] [place] [facility] [address] [address] Nkechi Grajeda, EDD 06/17/2025 7:00 AM EDT Clinical Support [facility] [place] [facility] [address] [place] [phone] Nkechi Grajeda, EDD 06/24/2025 7:00 AM EDT Clinical Support [facility] [place] [facility] [address] [place] [phone] Nkechi Grajeda, EDD 06/24/2025 8:15 AM EDT Clinical Support [facility] [place] [facility] [address] [place] [phone] Nkechi Grajeda, EDD 07/01/2025 7:00 AM EDT Clinical Support [facility] [place] [facility] [address] [place] [phone] Nkechi Grajeda, EDD 07/08/2025 7:00 AM EDT Clinical Support [facility] [place] [facility] [address] [place] [phone] Nkechi Grajeda, EDD 07/15/2025 7:00 AM EDT Clinical Support [facility] [address] [address] Nkechi Grajeda, EDD 07/22/2025 8:15 AM EDT Clinical Support [facility] [address] [address] Nkechi Grajeda, EDD 08/19/2025 8:15 AM EDT Clinical Support [facility] [address] [address] Nkechi Grajeda, EDD 09/16/2025 8:15 AM EDT Clinical Support [address] [address] Nkechi Grajeda, EDD 10/14/2025 8:15 AM EDT Clinical Support [address] [address] Nkechi Grajeda RN 11/11/2025 8:15 AM EDT Clinical Support [address] [address] Nkechi Grajeda, EDD 12/09/2025 8:15 AM EDT Clinical Support [address] [address] Nkechi Grajeda, RN documented as of this encounter Visit Diagnoses Not on filedocumented in this encounter Care Teams Copper 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
--- OUTSIDE RECORDS SUMMARY | 2024-12-16 04:25 | XMS_ITS | Encounter Summary ---
Author Organization [facility] Address [address] [place] [address] Care Team Providers Care Drop Wire Aliner Name Role Phone Deloris Tobias NP Primary Care Provider [phone] Reason for Visit * Reason Onset Date Comments Clinical 11/25/2024 Par called to re port he was felling congested and wants to be seen for f/u on Monday11/25/2024. Denies any fever. States he thinks he has some Chrissie seltzer plus in his apt that he will take to help with the congestion. IDT to follow up. Encounter Details Date Type Department Care Team (Late st Contact Info) Description 11/25/2024 PACE On-Call [facility] [address] [place] [phone] Rich Mehta NP [address] [facility] [address] [place], [place] [id number] Social History Tobacco Use Types Packs/Day Years [...] In Home Nursing [facility] Aide Services [address] [place] [address] Merlin Forbes 12/16/2024 11:00 AM EDT Office Visit [facility] [place] [facility] [address] [place] [phone] Deloris Tobias NP [address] [address] 12/16/2024 6:00 PM EDT PACE Home Care / PACE Home Visit Emilee [facility] [address] [place] [phone] My Phillips 12/17/2024 7:00 AM EDT Clinical Support [facility] [address] [place] [phone] Nkechi Grajeda RN 12/17/2024 9:30 AM EDT PACE Home Care / PACE Home Visit [facility] [address] [place] [phone] Merlin Forbes 12/17/2024 11:00 AM EDT Treatment Emilee [facility] [place] Occupational Therapy [address] [place] [address] Tyler Ling OT 12/17/2024 6:00 PM EDT PACE Home Care / PACE Home Visit [facility] [address] [place] [phone] My Phillips 12/18/2024 10:00 AM EDT PACE Home Care / PACE Home Visit [facility] [address] [place] [phone] Merlin Forbes 12/18/2024 6:00 PM EDT PACE Home Care / PACE Home Visit [facility] [address] [place] [phone] My Phillips 12/19/2024 10:30 AM EDT PACE Home Care / PACE Home Visit [facility] [address] [place] [phone] Merlin Forbes 12/19/2024 6:00 PM EDT PACE Home Care / PACE Home Visit Emilee [facility] [address] [place] [phone] My Phillips 12/20/2024 9:00 AM EDT Appointment [address] [phone] 12/20/2024 9:30 AM EDT PACE Home Care / PACE Home Visit Em[facility] [address] [place] [phone] Merlin Forbes 12/20/2024 6:00 PM EDT PACE Home Care / PACE Home Visit Em[facility] [address] [place] [phone] My Phillips 12/21/2024 8:30 AM EDT PACE Home Care / PACE Home Visit [facility] [address] [place] [phone] Anabelle Valdez 12/22/2024 8:30 AM EDT PACE Home Care / PACE Home Visit [facility] [address] [place] [phone] Anabelle Valdez 12/23/2024 9:30 AM EDT PACE Home Care / PACE Home Visit Em[facility] [address] [place] [address] Merlin Forbes 12/23/2024 6:00 PM EDT PACE Home Care / PACE Home Visit [facility] [address] [place] [phone] My Phillips 12/24/2024 7:00 AM EDT Clinical Support [facility] [address] [place] [phone] Nkechi Grajeda RN 12/24/2024 9:30 AM EDT PACE Home Care / PACE Home Visit [facility] [address] [place] [phone] Merlin Forbes 12/24/2024 6:00 PM EDT PACE Home Care / PACE Home Visit [facility] [address] [place] [phone] My Phillips 12/25/2024 10:00 AM EDT PACE Home Care / PACE Home Visit [facility] [address] [place] [phone] Merlin Forbes 12/25/2024 6:00 PM EDT PACE Home Care / PACE Home Visit Em[facility] [address] [place] [phone] My Phillips 12/26/2024 10:40 AM EDT Clinical Support Emilee MAH[facility]Y [place] [address] [place] [phone] 12/26/2024 6:00 PM EDT PACE Home Care / PACE Home Visit Em[facility] [address] [place] [phone] My Phillips 12/27/2024 9:30 AM EDT PACE Home Care / PACE Home Visit Em[facility] [address] [place] [address] Merlin Forbes 12/27/2024 6:00 PM EDT PACE Home Care / PACE Home Visit Em[facility] [address] [place] [phone] My Phillips 12/30/2024 9:30 AM EDT PACE Home Care / PACE Home Visit Em[facility] [address] [place] [phone] Merlin Forbes 12/30/2024 6:00 PM EDT PACE Home Care / PACE Home Visit Em[facility] [address] [place] [phone] My Phillips 12/31/2024 7:00 AM EDT Clinical Support [facility] [address] [place] [phone] Nkechi Grajeda RN 12/31/2024 9:30 AM EDT PACE Home Care / PACE Home Visit [facility] [address] [place] [phone] Merlin Forbes 12/31/2024 10:00 AM EDT Ancillary Procedure [facility] [address] [facility] [address] [place] [address] 12/31/2024 6:00 PM EDT PACE Home Care / PACE Home Visit Emilee [facility] [address] [place] [phone] My Phillips 01/01/2025 10:00 AM EDT PACE Home Care / PACE Home Visit [facility] [address] [place] [phone] Merlin Forbes 01/01/2025 6:00 PM EDT PACE Home Care / PACE Home Visit [facility] [address] [place] [address] My Phillips 01/02/2025 10:30 AM EDT PACE Home Care / PACE Home Visit [facility] [address] [place] [phone] Merlin Forbes 01/02/2025 3:00 PM EDT Clinical Support Em[facility] [place] [address] [place] [address] 01/02/2025 6:00 PM EDT PACE Home Care / PACE Home Visit [facility] [address] [place] [phone] My Phillips 01/03/2025 9:30 AM EDT PACE Home Care / PACE Home Visit [facility] [address] [place] [phone] Merlin Forbes 01/03/2025 6:00 PM EDT PACE Home Care / PACE Home Visit Em[facility] [address] [place] [phone] My Phillips 01/04/2025 8:30 AM EDT PACE Home Care / PACE Home Visit Em[facility] [address] [place] [phone] Anabelle Valdez 01/05/2025 8:30 AM EDT PACE Home Care / PACE Home Visit [facility] [address] [place] [phone] Anabelle Valdez 01/06/2025 9:30 AM EDT PACE Home Care / PACE Home Visit [facility] [address] [place] [phone] Merlin Forbes 01/06/2025 6:00 PM EDT PACE Home Care / PACE Home Visit Em[facility] [address] [place] [phone] My Phillips 01/07/2025 7:00 AM EDT Clinical Support [facility] [address] [place] [address] Nkechi Grajeda, EDD 01/07/2025 8:15 AM EDT Clinical Support [facility] [address] [place] [phone] Nkechi Grajeda, EDD 01/07/2025 9:30 AM EDT PACE Home Care / PACE Home Visit Em[facility] [address] [place] [phone] Merlin Forbes 01/07/2025 6:00 PM EDT PACE Home Care / PACE Home Visit Em[facility] [address] [place] [phone] My Phillips 01/08/2025 10:00 AM EDT PACE Home Care / PACE Home Visit [facility] [address] [place] [phone] Merlin Forbes 01/08/2025 6:00 PM EDT PACE Home Care / PACE Home Visit Em[facility] [address] [place] [phone] My Phillips 01/09/2025 10:30 AM EDT PACE Home Care / PACE Home Visit [facility] [address] [place] [phone] Merlin Forbes 01/09/2025 6:00 PM EDT PACE Home Care / PACE Home Visit [facility] [address] [place] [phone] My Phillips 01/10/2025 9:30 AM EDT PACE Home Care / PACE Home Visit [facility] [address] [place] [address] Merlin Forbes 01/10/2025 10:00 AM EDT Clinical Support Emilee MAHONEY [place] [address] [place] [address] 01/10/2025 6:00 PM EDT PACE Home Care / PACE Home Visit Emilee [facility]ONEY [facility] [address] [place] [address] My Phillips 01/13/2025 9:30 AM EDT PACE Home Care / PACE Home Visit Em[facility] [address] [place] [phone] Merlin Forbes 01/13/2025 6:00 PM EDT PACE Home Care / PACE Home Visit Em[facility] [address] [place] [phone] My Phillips 01/14/2025 7:00 AM EDT Clinical Support [facility] [address] [place] [phone] Nkechi Grajeda RN 01/14/2025 9:30 AM EDT PACE Home Care / PACE Home Visit Em[facility] [address] [place] [address] Merlin Forbes 01/14/2025 6:00 PM EDT PACE Home Care / PACE Home Visit Em[facility] [address] [place] [phone] My Phillips 01/15/2025 10:00 AM EDT PACE Home Care / PACE Home Visit Em[facility] [address] [place] [address] Merlin Forbes 01/15/2025 6:00 PM EDT PACE Home Care / PACE Home Visit [facility] [place] [facility] [address] [place] [address] My Phillips 01/16/2025 10:30 AM EDT PACE Home Care / PACE Home Visit [facility] [place] [facility] [address] [place] [phone] Merlin Forbes 01/16/2025 6:00 PM EDT PACE Home Care / PACE Home Visit [facility] [place] [facility] [address] [place] [phone] My Phillips 01/17/2025 9:30 AM EDT PACE Home Care / PACE Home Visit [facility] [place] [facility] [address] [place] [phone] Merlin Forbes 01/17/2025 6:00 PM EDT PACE Home Care / PACE Home Visit [facility] [place] [facility] [address] [place] [phone] My Phillips 01/18/2025 8:30 AM EDT PACE Home Care / PACE Home Visit [facility] [place] [facility] [address] [place] [phone] Anabelle Valdez 01/19/2025 8:30 AM EST PACE Home Care / PACE Home Visit [facility] [place] [facility] [address] [place] [phone] Anabelle Valdez 01/20/2025 9:30 AM EST PACE Home Care / PACE Home Visit [facility] [place] [facility] [address] [place] [phone] Merlin Forbes 01/20/2025 6:00 PM EST PACE Home Care / PACE Home Visit [facility] [place] [facility] [address] [place] [phone] My Phillips 01/21/2025 7:00 AM EST Clinical Support [facility] [place] [facility] [address] [place] [phone] Nkechi Grajeda RN 01/21/2025 9:30 AM EST PACE Home Care / PACE Home Visit [facility] [address] [place] [phone] Merlin Forbes 01/21/2025 10:45 AM EST Clinical Support Em[facility] [place] [address] [place] [phone] 01/21/2025 6:00 PM EST PACE Home Care / PACE Home Visit [facility] [address] [place] [phone] My Phillips 01/22/2025 10:00 AM EST PACE Home Care / PACE Home Visit [facility] [address] [place] [phone] Merlin Forbes 01/22/2025 6:00 PM EST PACE Home Care / PACE Home Visit [facility] [address] [place] [phone] My Phillips 01/23/2025 10:30 AM EST PACE Home Care / PACE Home Visit [facility] [address] [place] [phone] Merlin Forbes 01/23/2025 6:00 PM EST PACE Home Care / PACE Home Visit [facility] [address] [place] [phone] My Phillips 01/24/2025 9:30 AM EST PACE Home Care / PACE Home Visit [facility] [address] [place] [phone] Merlin Forbes 01/24/2025 6:00 PM EST PACE Home Care / PACE Home Visit [facility] [address] [place] [address] My Phillips 01/27/2025 9:30 AM EST PACE Home Care / PACE Home Visit [facility] [address] [place] [address] Merlin Forbes 01/27/2025 6:00 PM EST PACE Home Care / PACE Home Visit [facility] [address] [place] [address] My Phillips 01/28/2025 7:00 AM EST Clinical Support [facility] [address] [place] [phone] Nkechi Grajeda RN 01/28/2025 9:30 AM EST PACE Home Care / PACE Home Visit [facility] [address] [place] [phone] Merlin Forbes 01/28/2025 6:00 PM EST PACE Home Care / PACE Home Visit [facility] [address] [place] [phone] My Phillips 01/29/2025 10:00 AM EST PACE Home Care / PACE Home Visit [facility] [address] [place] [address] Merlin Forbes 01/29/2025 6:00 PM EST PACE Home Care / PACE Home Visit [facility] [address] [place] [address] My Phillips 01/30/2025 10:30 AM EST PACE Home Care / PACE Home Visit [facility] [address] [place] [phone] Merlin Forbes 01/30/2025 6:00 PM EST PACE Home Care / PACE Home Visit [facility] [address] [place] [address] My Phillips 01/31/2025 9:30 AM EST PACE Home Care / PACE Home Visit [facility] [address] [place] [phone] Merlin Forbes 01/31/2025 11:00 AM EST PACE External Visit [facility] [place] [address] [place] [address] 01/31/2025 6:00 PM EST PACE Home Care / PACE Home Visit [facility] [address] [place] [phone] My Phillips 02/01/2025 8:30 AM EST PACE Home Care / PACE Home Visit [facility] [address] [place] [phone] Anabelle Valdez 02/02/2025 8:30 AM EST PACE Home Care / PACE Home Visit [facility] [address] [place] [phone] Anabelle Valdez 02/03/2025 9:30 AM EST PACE Home Care / PACE Home Visit [facility] [address] [place] [phone] Merlin Forbes 02/03/2025 6:00 PM EST PACE Home Care / PACE Home Visit [facility] [address] [place] [phone] My Phillips 02/04/2025 7:00 AM EST Clinical Support [facility] [address] [place] [phone] Nkechi Grajeda RN 02/04/2025 8:15 AM EST Clinical Support [facility] [place] [facility] [address] [place] [address] Nkechi Grajeda RN 02/04/2025 9:30 AM EST PACE Home Care / PACE Home Visit [facility] [address] [place] [phone] Merlin Forbes 02/04/2025 6:00 PM EST PACE Home Care / PACE Home Visit [facility] [address] [place] [phone] My Phillips 02/05/2025 10:00 AM EST PACE Home Care / PACE Home Visit [facility] [address] [place] [phone] Merlin Forbes 02/05/2025 6:00 PM EST PACE Home Care / PACE Home Visit [facility] [address] [place] [phone] My Phillips 02/06/2025 10:30 AM EST PACE Home Care / PACE Home Visit [facility] [address] [place] [phone] Merlin Forbes 02/06/2025 6:00 PM EST PACE Home Care / PACE Home Visit [facility] [address] [place] [phone] My Phillips 02/07/2025 9:30 AM EST PACE Home Care / PACE Home Visit [facility] [address] [place] [phone] Merlin Forbes 02/07/2025 6:00 PM EST PACE Home Care / PACE Home Visit [facility] [address] [place] [phone] My Phillips 02/10/2025 9:30 AM EST PACE Home Care / PACE Home Visit [facility] [address] [place] [phone] Merlin Forbes 02/10/2025 6:00 PM EST PACE Home Care / PACE Home Visit [facility] [address] [place] [phone] My Phillips 02/11/2025 7:00 AM EST Clinical Support [facility] [address] [place] [phone] Nkechi Grajeda RN 02/11/2025 9:30 AM EST PACE Home Care / PACE Home Visit [facility] [address] [place] [phone] Merlin Forbes 02/11/2025 6:00 PM EST PACE Home Care / PACE Home Visit [facility] [address] [place] [phone] My Phillips 02/12/2025 10:00 AM EST PACE Home Care / PACE Home Visit [facility] [address] [place] [phone] Merlin Forbes 02/12/2025 6:00 PM EST PACE Home Care / PACE Home Visit [facility] [address] [place] [phone] My Phillips 02/13/2025 10:30 AM EST PACE Home Care / PACE Home Visit [facility] [place] [facility] [address] [place] [phone] Merlin Forbes 02/13/2025 6:00 PM EST PACE Home Care / PACE Home Visit [facility] [place] [facility] [address] [place] [phone] My Phillips 02/18/2025 7:00 AM EST Clinical Support [facility] [place] [facility] [address] [place] [phone] Nkechi Grajeda, EDD 02/25/2025 7:00 AM EST Clinical Support [facility] [place] [address] [phone] Nkechi Grajeda, EDD 02/27/2025 10:40 AM EST Clinical Support [facility] [place] [address] [place] [phone] 03/04/2025 7:00 AM EST Clinical Support [facility] [place] [address] [phone] Nkechi Grajeda, EDD 03/04/2025 8:15 AM EST Clinical Support [facility] [place] [address] [phone] Nkechi Grajeda, EDD 03/11/2025 7:00 AM EST Clinical Support [facility] [place] [address] [phone] Nkechi Grajeda, EDD 03/18/2025 7:00 AM EST Clinical Support [facility] [place] [facility] [address] [place] [phone] Nkecih Grajeda, EDD 03/25/2025 7:00 AM EST Clinical Support [facility] [place] [facility] [address] [place] [phone] Nkechi Grajeda, EDD 04/01/2025 7:00 AM EST Clinical Support [facility] [place] [facility] [address] [place] [phone] Nkechi Grajeda, EDD 04/01/2025 8:15 AM EST Clinical Support [facility] [place] [facility] [address] [place] [phone] Nkechi GrajedaEDD 04/08/2025 7:00 AM EST Clinical Support [facility] [place] [facility] [address] [place] [phone] Nkechi Grajeda RN 04/14/2025 9:25 AM EST Office Visit [facility] - [address] [place] [address] Dillon Mendosa MD [address] [place] [address] [place] [address] 04/15/2025 7:00 AM EST Clinical Support [facility] [place] [address] [phone] Nkechi Grajeda, EDD 04/22/2025 7:00 AM EST Clinical Support [facility] [place] [address] [phone] Nkechi Grajeda RN 04/29/2025 7:00 AM EST Clinical Support [facility] [place] [address] [phone] Nkechi Grajeda RN 04/29/2025 8:15 AM EST Clinical Support [facility] [place] [address] [phone] Nkechi Grajeda, EDD 05/06/2025 7:00 AM EST Clinical Support [facility] [place] [address] [phone] Nkechi Grajeda, EDD 05/13/2025 7:00 AM EST Clinical Support [facility] [place] [facility] [address] [place] [phone] Nkechi Grajeda, EDD 05/20/2025 7:00 AM EST Clinical Support [facility] [place] [facility] [address] [place] [phone] Nkechi Grajeda, EDD 05/27/2025 7:00 AM EDT Clinical Support [facility] [place] [facility] [address] [place] [phone] Nkechi Grajeda, EDD 05/27/2025 8:15 AM EDT Clinical Support [facility] [address] [place] [phone] Nkechi Grajeda, EDD 06/03/2025 7:00 AM EDT Clinical Support [facility] [place] [facility] [address] [place] [phone] Nkechi Grajeda, EDD 06/10/2025 7:00 AM EDT Clinical Support [facility] [place] [facility] [address] [place] [phone] Nkechi Grajeda, EDD 06/17/2025 7:00 AM EDT Clinical Support [facility] [place] [facility] [address] [place] [phone] Nkechi Grajeda, EDD 06/24/2025 7:00 AM EDT Clinical Support [facility] [place] [facility] [address] [place] [phone] Nkechi Grajeda, EDD 06/24/2025 8:15 AM EDT Clinical Support [facility] [place] [facility] [address] [place] [phone] Nkechi Grajeda, EDD 07/01/2025 7:00 AM EDT Clinical Support [facility] [place] [facility] [address] [place] [phone] Nkechi Grajeda, EDD 07/08/2025 7:00 AM EDT Clinical Support [facility] [place] [facility] [address] [place] [phone] Nkechi Grajeda, RN 07/15/2025 7:00 AM EDT Clinical Support [facility] [place] [facility] [address] [place] [phone] Nkechi Grajeda, RN 07/22/2025 8:15 AM EDT Clinical Support [facility] [place] [facility] [address] [place] [address], [place] [address] Nkechi Grajeda, EDD 08/19/2025 8:15 AM EDT [facility] [address] [phone] Nkechi Grajeda, EDD 09/16/2025 8:15 AM EDT [facility] [address] [phone] Nkechi Grajeda, EDD 10/14/2025 8:15 AM EDT [facility] [address] [phone] Nkechi Grajeda RN 11/11/2025 8:15 AM EDT [facility] [address] [phone] Nkechi Grajeda, EDD 12/09/2025 8:15 AM EDT [facility] [address] [phone] Nkechi Grajeda, EDD documented as of this encounter Visit Diagnoses Not on filedocumented in this encounter Care Teams Drop Wire Aliner Relationship Specialty Start Date End Date Deloris Tobias NP [address] [place] [id number] PCP - General Family Medicine 12/01/24 documented as of this encounter
--- OUTSIDE RECORDS SUMMARY | 2024-12-16 04:25 | XMS_ITS | Clinical Summary ---
Author Organization [facility] Address [address] [place] [address] Phone Care Team Providers Care Principal Technical Writer Name Role Phone Mile Tobias SECURITY MANAGER Primary Care Provider [phone] Allergies Active Allergy Reactions Criticality Noted Date Comments Shellfish Containing Products 2020 Tramadol Itching 11/04/2024 Medications rosuvastatin (CRESTOR) 40 mg tablet Take 1 tablet (40 mg total) by mouth 1 (one) time each day. Active senna (SENOKOT) 8.6 mg tablet Take 1 tablet (8.6 mg total) by mouth as needed. Active nitroglycerin (NITROSTAT) 0.[address] 1 tablet (0.4 mg total) under the tongue every 5 (five) minutes if needed. 021 Active amiodarone (PACERONE) 400 mg tablet 1 tab by mouth daily Active melatonin 10 mg tablet 1 tab by mouth once daily at bedtime prn sleep Active semaglutide (Ozempic) 1 mg/dose (4 mg/3 mL) injection pen 1 mg subcutaneously every week Active docusate sodium (COLACE) 100 mg capsule Take 1 capsule (100 mg total) by mouth 2 (two) times a day. Active tamsulosin (FLOMAX) 0.4 mg 24 hr capsuleIndicatio ns:Benign prostatic hyperplasia with urinary frequency Take 1 capsule (0.4 mg total) by mouth 1 (one) time each day. Capsules should be taken 30 minutes following the same meal each day. 28 each 2025 Active topiramate (TOPAMAX) 50 mg tabletIndication s:Episodic tension-type headache, not intractable Take 2 tablets (100 mg total) by mouth 1 (one) time each day in the evening. 28 each 025 2025 Active acetaminophen (TYLENOL) 500 mg tabletIndication s:Primary osteoarthritis of both knees Take 2 tablets (1,000 mg total) by mouth every 8 (eight) hours if needed for mild pain or moderate pain. 100 tablet 5 025 2024 Active lidocaine (LIDODERM) 5 % patchIndications :Diabetic polyneuropathy associated with type 2 diabetes mellitus ([facility] V24, [facility] V28) Apply 2 patches topically 1 (one) time each day. Apply to painful area 12 hours per day, remove for 12 hours. 56 each 2025 Active aspirin 81 mg EC tabletIndication s:Coronary artery disease involving [place] coronary artery of [place] and [place] heart without angina pectoris Take 1 tablet (81 mg total) by mouth 1 (one) time each day. 28 each 2025 Active linaCLOtide (LINZESS) 290 mcg capsuleIndicatio ns:Constipation, chronic Take 1 capsule (290 mcg total) by mouth 1 (one) time each day. 28 each 025 2025 Active albuterol HFA (Ventolin HFA) 90 mcg/actuation inhalerIndicatio ns:Acute bronchitis, unspecified organism Inhale 2 puffs by mouth every 4 (four) hours if needed for wheezing or shortness of breath. 8 g Active carvediloL (Coreg) 3.125 mg tabletIndication s:Acute on chronic combined systolic and diastolic congestive heart failure ([facility] V24, [facility] V28) Take 1 tablet (3.125 mg total) by mouth 2 (two) times a day with meals. 56 each 025 2025 Active dapagliflozin propanediol (FARXIGA) 10 mg tabletIndication s:Acute on chronic combined systolic and diastolic congestive heart failure (CMS/HCC V24, CMS/HCC V28) Take 1 tablet (10 mg total) by mouth 1 (one) time each day. 28 each 025 2025 Active sacubitriL-valsa rtan (ENTRESTO) 24-26 mg per tabletIndication s:Acute on chronic combined systolic and diastolic congestive heart failure (CMS/HCC V24, CMS/HCC V28) Take 1 tablet by mouth 2 (two) times a day. 56 each 025 2025 Active bumetanide (BUMEX) 2 mg tabletIndication s:Chronic systolic congestive heart failure (CMS/HCC V24, CMS/HCC V28) Take 1 tablet (2 mg total) by mouth 2 (two) times a day. 56 each 025 2025 Active ergocalciferol (VITAMIN D-2) 1,250 mcg (50,000 unit) capsuleIndicatio ns:Vitamin D deficiency Take 1 capsule (50,000 Units total) by mouth 1 (one) time per week. 4 capsule 025 2025 Active gabapentin (NEURONTIN) 800 mg tabletIndication s:Radiculopathy, cervical Take 1 tablet (800 mg total) by mouth 3 (three) times a day. 1 tab by mouth 3 times per day 84 each 025 2025 Active lidocaine (XYLOCAINE) 5 % ointmentIndicati ons:Leg pain, anterior, left Apply topically 1 (one) time each day. Home (Next Business Day Home) 35.44 g 025 2025 Active spironolactone (Aldactone) 50 mg tabletIndication s:Acute on chronic combined systolic and diastolic congestive heart failure (CMS/HCC V24, CMS/HCC V28) Take 1 tablet (50 mg total) by mouth 1 (one) time each day. 28 each 2025 Active LORazepam (Ativan) 0.5 mg tabletIndication s:Anxiety disorder due to general medical condition with panic attack Take 1 tablet (0.5 mg total) by mouth 1 (one) time each day if needed for anxiety (panic attack) for up to 10 days. Max Daily Amount: 0.5 mg 10 tablet 2024 Active nicotine (NICODERM CQ) 7 mg/[address] 1 patch on the skin 1 (one) time each day for 14 days. 14 each 2024 Active urea (CARMOL) 20 % cream Apply topically if needed for dry skin. 1 application to (affected) skin 2 times per day Active urea (CARMOL) 20 % cream if needed. 1 application to (affected) skin 2 times per day 2024 Discontinued DULoxetine (CYMBALTA) [address] capsuleIndicatio ns:Diabetic polyneuropathy associated with type 2 diabetes mellitus (CMS/[facility] V24, CMS/HCC V28) Take 1 capsule (60 mg total) by mouth 1 (one) time each day. Do not crush or chew. 28 each 2024 Discontinued(P rescriber Discontinued) gabapentin (NEURONTIN) 800 mg tabletIndication s:Radiculopathy, cervical Take 1 tablet (800 mg total) by mouth 3 (three) times a day for 28 days. 1 tab by mouth 3 times per day 84 each 2024 Discontinued(R eorder) bumetanide (BUMEX) 2 mg tabletIndication s:Chronic systolic congestive heart failure (CMS/HCC V24, CMS/HCC V28) Take 1 tablet (2 mg total) by mouth 1 (one) time each day for 3 days. Take additional dose of Bumex daily x 3 days. 3 each 025 2024 Discontinued(R eorder) spironolactone (Aldactone) 25 mg tabletIndication s:Acute on chronic combined systolic and diastolic congestive heart failure (CMS/HCC V24, CMS/HCC V28) Take 1 tablet (25 mg total) by mouth 1 (one) time each day. 28 each 025 2024 Discontinued(R eorder) clonazePAM (KlonoPIN) 0.5 mg tabletIndication s:Anxiety and depression,Short ness of breath Take 1 tablet (0.5 mg total) by mouth 2 (two) times a day. Max Daily Amount: 1 mg 60 each 5 2024 Discontinued(R eorder) traMADoL (ULTRAM) 50 mg tabletIndication s:Acute pain of right foot Take 1 tablet (50 mg total) by mouth every 8 (eight) hours if needed for severe pain or moderate pain for up to 7 days. Max Daily Amount: 150 mg 21 tablet 025 2024 LORazepam (Ativan) 0.5 mg tabletIndication s:Anxiety Take 1 tablet (0.5 mg total) by mouth 1 (one) time each day if needed for anxiety for up to 7 days. Max Daily Amount: 0.5 mg 7 tablet 025 2024 Discontinued(T herapy completed) clonazePAM (KlonoPIN) 1 mg tabletIndication s:Shortness of breath Take 1 tablet (1 mg total) by mouth 2 (two) times a day. Max Daily Amount: 2 mg 60 tablet 1 025 2024 Discontinued(N on-compliance) metOLazone (ZAROXOLYN) 5 mg tabletIndication s:Chronic systolic congestive heart failure (CMS/HCC V24, CMS/HCC V28) Take 1 tablet (5 mg total) by mouth 1 (one) time each day in the morning. 30 each 025 2024 Discontinued(T herapy completed) oxyCODONE (ROXICODONE) 10 mg immediate release tabletIndication s:Leg pain, anterior, left Take 1 tablet (10 mg total) by mouth 2 (two) times a day if needed for severe pain for up to 7 days. Max Daily Amount: 20 mg 14 tablet 025 2024 Discontinued(S top Taking at Discharge) Active Problems Problem Noted Date Diagnosed Date Hypokalemia 12/12/2024 Leg pain, anterior, left 12/12/2024 Assessment & Plan (12/13/2024 8:41 AM EDT): Due to underlying wound. Also possible neuropathy. No longer taking duloxetine which was most likely helping his pain. Prescribe short course of percocet. Leg wound, left, sequela 12/03/2024 Assessment & Plan (12/13/2024 9:02 AM EDT): Orginated from a blister. Continue wound care. Monitor for progression of healing. Assessment & Plan (12/03/2024 11:49 AM EDT): Would like Home Care nurses to keep this clear, apply non-adherent dressing daily. Medication management 10/11/2024 Assessment & Plan (12/13/2024 9:09 AM EDT): PAR with polypharmacy. Goal to reduce pill burden. Assessment & Plan (10/11/2024 2:32 PM EDT): Currently Nkechi Smiley, RN, manages his meds and he only wants Nkechi our nurse to continue to do this. Note: The Mobile Nurse found 2 large bags of 'daily meds' on top of miguelangel's fridge. Most of the bottles had at least 2 weeks' worth of pills, so it is highly unlikely that miguelangel is getting the daily meds he needs. Will alli Arboleda and Isabela Bannish about the need for aldactone and bumex 2mg in the morning, and bumex 2mg at noon. Alcohol abuse, episodic 10/11/2024 Assessment & Plan (12/13/2024 9:13 AM EDT): Chronic condition; denies recent ETOH use. Reports not drinking in the past 2 years. Advised against ETOH. Assessment & Plan (10/11/2024 2:32 PM EDT): Suggested alcohol in moderation. Erectile dysfunction associa leo with type 2 diabetes mellitus ([facility] V24, [facility] V28) 06/23/2024 Assessment & Plan (12/13/2024 9:04 AM EDT): Chronic condition; unchanged. Referred to urologist for further disccusion of treatment options. Assessment & Plan (06/23/2024 8:38 PM EDT): Chronic condition. PAR still with a high sexual drive, interested in treatment options. Consider referral to urologist. Other specified disorders of bone density and structure, multiple sites 04/09/2024 Overview (04/09/2024): DEXA: Z13.820, M85.89 Assessment & Plan (12/13/2024 9:00 AM EDT): Chronic condition; continue to encourage weight bearing exercises. Continue Vitamin D supplementation. Assessment & Plan (06/23/2024 8:08 PM EDT): Chronic condition; goal is to maintain vitamin D level > 30. No longer on vitamin D3 due to high pill burden. Continue to encourage walking. Cholelithiasis 04/09/2024 Assessment & Plan (12/13/2024 8:57 AM EDT): Chronic condition; has elevated LFTs. Obtain abdominal u/s. Assessment & Plan (12/13/2024 9:13 AM EDT): >>ASSESSMENT AND PLAN FOR CHOLELITHIASIS WRITTEN ON 06/23/2024 8:02 PM BY MILE TOBIAS NP Chronic condition; asymptomatic. Continue to monitor. >>ASSESSMENT AND PLAN FOR ABNORMAL LFTS WRITTEN ON 06/23/2024 8:23 PM BY MILE TOBIAS NP Continue to monitor liver function. Recheck with labs. Chronic allergic rhinitis 04/09/2024 Assessment & Plan (12/13/2024 8:47 AM EDT): Chronic condition; stable. Continue current medication. Assessment & Plan (06/23/2024 7:46 PM EDT): Chronic condition; labile. Not using nasal spray. Monitor. Treat if symptoms worsen. Benign prostatic hyperplasia with lower urinary tract symptoms 04/09/2024 Assessment & Plan (12/13/2024 8:58 AM EDT): Chronic condition; labile. Continue current medication. Consider referral to urologist. Assessment & Plan (06/23/2024 8:07 PM EDT): Chronic condition; symptoms improved with use of tamsulosin. Continue current medication. Monitor. Constipation, chronic 04/09/2024 Assessment & Plan (12/13/2024 8:57 AM EDT): Chronic condition; stable. Continue linzess and senna. Assessment & Plan (06/23/2024 8:04 PM EDT): Chronic condition; stable. PAR has been on multiple agents with varying reported results. Current on Senna as needed and reports it works well for him. Will discontinue all other laxative medications and continue Senna as needed. Vitamin D deficiency 04/09/2024 Assessment & Plan (12/13/2024 8:56 AM EDT): Chronic condition; stable. Continue Vitamin D2 as prescribed. Monitor vitamin D level yearly. Assessment & Plan (08/16/2024 3:48 PM EDT): His last vit D level was below normal. Discussed and ordered replacement dose of Vit D x 3 months; then 50,000 IU once a Month. Orders: ergocalciferol (VITAMIN D-2) 1,250 mcg (50,000 unit) capsule; Take 1 capsule (50,000 Units total) by mouth 1 (one) time per week. Assessment & Plan (06/23/2024 8:04 PM EDT): Chronic condition; no longer taking vitamin D3 supplementation due to high pill burden. Depression, major, recurrent , moderate (CMS/HCC V24, CMS/HCC V28) 04/09/2024 Assessment & Plan (12/13/2024 9:12 AM EDT): Chronic condition; no longer on medication for depression. MIGUELANGEL took himself off medication. Will discuss with medical service technician best course of action when it comes to initiating treatment for depression, anxiety, and neuropathy. Assessment & Plan (06/23/2024 8:24 PM EDT): Chronic condition; continues with therapy. Continue Duloxetine. Frustrated due to struggling with chronic pain. Monitor. Generalized anxiety disorder with panic attacks 04/09/2024 Overview (04/09/2024): Anxiety/Panic Disorder Assessment & Plan (12/13/2024 9:10 AM EDT): >>ASSESSMENT AND PLAN FOR OTHER SPECIFIED ANXIETY DISORDERS WRITTEN ON 12/13/2024 9:08 AM BY MILE TOBIAS NP Chronic condition; did not tolerated clonazepam. Prescribe short course of lorazepam to use as needed. Assessment & Plan (12/03/2024 11:49 AM EDT): Sterling said specifically to his PCP and me that he did NOT want the clonazepam. Will stop it in his med list. Assessment & Plan (11/30/2024 2:16 PM EDT): Managed to increase lorazepam to 1 mg twice daily. Participant is to notify clinic if symptoms persist. Discussed coping skills and to continue therapy sessions with social work professor. Assessment & Plan (06/23/2024 8:25 PM EDT): Chronic condition; improved. Off Lorazepam. Continue to monitor and treat as needed. Plantar fasciitis 04/09/2024 Assessment & Plan (12/13/2024 8:59 AM EDT): Chronic condition; uses lidocaine patches. Non-complaint with use of diabetic shhoes and other treatments. Assessment & Plan (06/23/2024 8:11 PM EDT): Chronic condition; improved. Par does not wear diabetic shoes prescribed to him. Monitor. Neurologic gait dysfunction 04/09/2024 Assessment & Plan (12/13/2024 9:08 AM EDT): Chronic condition; stable. Continue to encourage use of rollator. Fall precautions. Assessment & Plan (10/31/2024 7:06 PM EDT): Orders: traMADoL (ULTRAM) 50 mg tablet; Take 1 tablet (50 mg total) by mouth every 8 (eight) hours if needed for severe pain for up to 5 days. Max Daily Amount: 150 mg oxyCODONE (OxyCONTIN) 10 mg 12 hr abuse-deterrent tablet; Take 1 tablet (10 mg total) by mouth every 12 (twelve) hours for 6 days. Do not crush, chew, or split. Max Daily Amount: 20 mg Assessment & Plan (06/23/2024 8:25 PM EDT): Chronic condition; unchanged. Continue to use rollator for ambulation. Continue fall precautions. Hypertensive heart disease w ith heart failure ([facility] V24, [facility] V28) 04/09/2024 Overview (04/09/2024): Hypertension (HTN) with CHF Assessment & Plan (12/13/2024 8:51 AM EDT): Chronic condition; blood pressure stable. Continue current medication. Still has evidence of volume overload. Increase dose of spironolactone to 50 mg daily. Monitor weight. Encourage following a low sodium diet. Assessment & Plan (12/03/2024 11:49 AM EDT): He is normotensive. We need to be judicious in diuresis. The plan to use metolazone in the morning, followed 45min later with the first of two doses of bumex 2mg was explained to Sterling. Assessment & Plan (08/16/2024 3:48 PM EDT): He is on a multi-med regimen of antihypertensives, and right now has good blood pressure control. Assessment & Plan (06/23/2024 7:58 PM EDT): Chronic condition; stable. Blood pressure at goal. Volume status is near goal. Continue current treatment regimen. Follow up with shop welder as indicated. Insomnia 04/09/2024 Assessment & Plan (12/13/2024 9:09 AM EDT): Chronic condition; PAR not following sleep hygiene recommendations. Encouraged to avoid napping during the day. Assessment & Plan (06/23/2024 8:26 PM EDT): Chronic condition; labile. Does not use Melatonin as prescribed. Stopped taking Trazodone stating it did not help. Has untreated sleep apnea; need to address. Meralgia paresthetica 04/09/2024 Assessment & Plan (12/13/2024 8:40 AM EDT): Chronic condition; stable. Controlled with gabapentin. Assessment & Plan (06/23/2024 7:22 PM EDT): Chronic condition; stable. Fairly well controlled on gabapentin. Continue current medication. Diabetic polyneuropathy asso ciated with type 2 diabetes mellitus ([facility] V24, [facility] V28) 04/09/2024 Assessment & Plan (12/13/2024 8:43 AM EDT): Chronic condition; labile. Continue gabapentin and use lidocaine patches. No longer on duloxetine. Monitor Hgba1c. Assessment & Plan (08/16/2024 3:48 PM EDT): He reports burning sensation in his feet, consistent with diabetic neuropathy. Increasing gabapentin 600mg (pt was taking this BID, though PCP was giving it TID) to 800 mg TID. Assessment & Plan (08/06/2024 11:21 AM EDT): Reducing dose of duloxetine to 60 mg daily. Continue gabapentin and lidocaine patches. Assessment & Plan (06/23/2024 8:10 PM EDT): Chronic condition; labile. On multiple agents and still with break through pain. On Duloxetine, Gabapentin and lidocaine patches applied to the bottom of his feet. Would benefit from wearing diabetic shoes, but refuses to wear them. PAR agreeable to be referred to neurologist. Obesity, morbid ([facility] V24, [facility] V28) 04/09 Assessment & Plan (12/13/2024 8:56 AM EDT): Chronic condition; goal iis to avoid weight gain. Continue Ozempic. Assessment & Plan (06/23/2024 8:07 PM EDT): Chronic condition; goal is to avoid weight gain. Currently on Ozempic for diabetes. Does not seem to be affecting weight at current dose. But PAR reports that medication has curved appetite. Needs to true dry weight. Consider increasing dose of Ozempic in the near future. Obstructive sleep apnea 04/09/2024 Assessment & Plan (12/13/2024 8:46 AM EDT): Not being treated. MIGUELANGEL has been referred to sleep medicine, but he canceled appointment. Assessment & Plan (06/23/2024 7:47 PM EDT): Chronic condition; does not have a CPAP. Has difficulty sleeping. Unable to get transportation needed for sleep lab study. Inquiring about a home sleep study. Will research option. Osteoarthritis 04/09/2024 Overview (04/09/2024): Osteoarthritis: Bilateral Knees, Hips, & Ankles Assessment & Plan (12/13/2024 9:00 AM EDT): Chronic condition; labile. Continue to monitor and take APAP as indicated. Assessment & Plan (07/12/2024 3:42 PM EDT): Discussed intraarticular steroid injection procedure with MIGUELANGEL. He agreed and gave verbal consent. L patellofemoral lateral approach, skin prepped with antiseptic, ethylchloride used for numbing, 22g needle introduced laterally into L patellofemoral joint 100 mg 1% lidocaine without epi/ 40 mg triamcinolone injected slowly with no resistance, needle withdrawn, bandaid dressing applied to site, par asked to flex knee in which he did multiple times with no pain. Par educated on side effects of lidocaine. Par educated to watch for any swelling, erythema at injection site. Par tolerated procedure well and expressed verbal understanding of post care instructions. Assessment & Plan (06/23/2024 8:13 PM EDT): Chronic conditions. Hips and ankles with intermittent pain. Struggles with knees the most. Discussed intraarticular steroid injection procedure with Bobby. Patient agreed and gave verbal consent. R patellofemoral lateral approach, skin prepped with antiseptic, ethylchloride used for numbing, 18g needle introduced laterally into R patellofemoral joint with no resistance, no aspirate seen, 100 mg 1% lidocaine without epi/ 40 mg triamcinolone injected slowly into R patellofemoral joint with no resistance, needle withdrawn, bandaid dressing applied to R knee, par asked to flex knee in which he did multiple times with no pain. Par educated on side effects of lidocaine. Total of lidocaine given: 100mg, did not exceed max dose of 300mg. Par told to watch for any swelling, erythema at injection site. Par tolerated procedure well and expressed verbal understanding of post care instructions. Radiculopathy, cervical 04/09/2024 Assessment & Plan (12/13/2024 8:39 AM EDT): Chronic condition; intermittent pain. Continue current medication. Assessment & Plan (12/03/2024 11:49 AM EDT): Renewed gabapentin order Orders: gabapentin (NEURONTIN) 800 mg tablet; Take 1 tablet (800 mg total) by mouth 3 (three) times a day. 1 tab by mouth 3 times per day Assessment & Plan (08/16/2024 3:48 PM EDT): Ordered lidocaine 4% with menthol 5%, 2 patches daily. Orders: lidocaine HCL-menthoL 4-5 % adhesive patch,medicated; Apply 2 patches topically 1 (one) time each day for 28 days. gabapentin (NEURONTIN) 800 mg tablet; Take 1 tablet (800 mg total) by mouth 3 (three) times a day for 28 days. 1 tab by mouth 3 times per day Assessment & Plan (06/23/2024 7:30 PM EDT): Chronic condition; stable. Moderately controlled on current medication. Continue to monitor. Type 2 diabetes mellitus wit h peripheral artery disease ([facility] V24, [facility] V28) 04/09/2024 Assessment & Plan (12/13/2024 8:48 AM EDT): Chronic condition. Continue to monitor BLE skin integrity. Assessment & Plan (06/23/2024 7:59 PM EDT): Chronic condition; stable. Palpable pulses. Continue to monitor skin integrity. Chronic venous insufficiency 04/09/2024 Overview (04/09/2024): Bilateral Assessment & Plan (12/13/2024 9:03 AM EDT): >>ASSESSMENT AND PLAN FOR BILATERAL LEG EDEMA WRITTEN ON 08/16/2024 3:48 PM BY SUSY GILMORE MD Stat U/S of RLE ordered earlier today; appt for 12 noon at [facility]. Stat read: no evidence of DVT. Recommended daily exercise with walking, as well as isometrics of lower legs when seated. Also recommended compression of both legs. Assessment & Plan (12/13/2024 9:03 AM EDT): >>ASSESSMENT AND PLAN FOR BILATERAL LEG EDEMA WRITTEN ON 08/23/2024 1:28 PM BY MILE TOBIAS NP Increase Bumx to TID x 3 days. Compress RLE from ankle to below the knee. Order to be done 3 times a week. Assessment & Plan (12/13/2024 9:03 AM EDT): >>ASSESSMENT AND PLAN FOR BILATERAL LEG EDEMA WRITTEN ON 10/11/2024 2:32 PM BY SUSY GILMORE MD Due to hypervolemia, lack of exercise/movement. Attn: Harris, Huong to see if he can participate in Exercise Classes, and if he can work with Therapy to develop a HEP, even if it is simply walking in his hallway at [place]. Assessment & Plan (12/13/2024 8:52 AM EDT): Chronic condition; labile. Continue compression wraps as tolerated. Encourage PAR to elevate BLE when in sitting position. Assessment & Plan (12/13/2024 9:03 AM EDT): >>ASSESSMENT AND PLAN FOR CHRONIC VENOUS INSUFFICIENCY WRITTEN ON 12/03/2024 11:49 AM BY SUSY GILMORE MD Sterling has tried to be active. One of his legs has an open wound. Suggest Unna Boot on the other intact leg, twice a week. Once the open wound has healed, can place an Unna boot on that leg as well. >>ASSESSMENT AND PLAN FOR BILATERAL LEG EDEMA WRITTEN ON 12/03/2024 11:49 AM BY SUSY GILMORE MD Would like par to have KESHIA wraps on his legs daily, in am, off at hs when supine. Assessment & Plan (09/05/2024 3:51 PM EDT): Explained to PAR that the majority of his problems r/t lower extremity edema is due to venous insufficiency. Compression of lower extremities, elevation of lower extremities above the heart, and ambulation is the treatment. Will have nurse measure legs for zippered compression stocking. Compliance recommended. Assessment & Plan (06/23/2024 8:02 PM EDT): Chronic condition. Refuses to wear compression stockings. Legs also wrapped in the past and PAR reported it made his toes and knees swell. Non compliant with diuretic therapy as well. Encourage to elevated legs when in sitting position. Evaluated by vascular surgery in 2023. Callus 04/09/2024 Assessment & Plan (12/13/2024 9:03 AM EDT): Chronic condition; continue to follow up with podiatry as indicated. Non- complaint with use of diabetic shoes. Assessment & Plan (06/23/2024 8:16 PM EDT): Chronic condition; stable. Follow up with advertising account representative as indicated. Xerosis of skin 04/09/2024 Overview (04/09/2024): Severe Assessment & Plan (12/13/2024 8:58 AM EDT): Chronic condition; labile. Continue to encourage PAR to use moisturizer on skin. Assessment & Plan (06/23/2024 8:16 PM EDT): PAR with severely dry skin affect bootom of feet and heels. Prescribed urea but nonadherent to treatment as prescribed. Restrictive lung disease 04/09/2024 Overview (04/09/2024): Restrictive Lung Disease with Dyspnea on Exertion Assessment & Plan (12/13/2024 8:47 AM EDT): >>ASSESSMENT AND PLAN FOR MIXED SIMPLE AND MUCOPURULENT CHRONIC BRONCHITIS (CMS/HCC V24, CMS/HCC V28) WRITTEN ON 10/11/2024 2:32 PM BY SUSY GILMORE MD COPD is an underlying etiology for SOB. It is unknown what his lung function is. Suggest getting a Pulm Function Test, at next f/u appt, and after the results, giving him nebulized LABA and LAMA. Assessment & Plan (12/13/2024 8:46 AM EDT): Chronic condition; per PFT. Referred to pulmonology. [place] to be secondary to obesity, decondition and CHF. Use albuterol inhaler as needed. Monitor. Assessment & Plan (06/23/2024 7:51 PM EDT): Chronic condition; per dye colorist dyer usually seen in patient with severe CHF. Continue to monitor. Sleep paralysis 04/09/2024 Assessment & Plan (12/13/2024 9:06 AM EDT): Chronic condition; referred to sleep medication but PAR cancelled visit. Assessment & Plan (06/23/2024 8:27 PM EDT): Chronic condition; intermittent episode. Possiblt related to untreated sleep apnea. Monitor. Smokes cigarettes 04/09/2024 Assessment & Plan (12/13/2024 9:06 AM EDT): Chronic condition; reports no longer smoking cigarettes but is vaping. Readdress smoking cessation next visit. Assessment & Plan (09/05/2024 3:54 PM EDT): PAR interested in quitting smoking. Discussed starting on Chantix but PAR is not interested due to potential side effects of medication. PAR would like to quit on his own. Discussed cutting down smoking amount. Assessment & Plan (06/23/2024 8:34 PM EDT): Continues to smoke. Encourage smoking cessation. Not interested in quitting at this time. Also order CT chest for annual lung cancer screening. Ventricular tachycardia (CMS/HCC V24, CMS/[facility] V2 8) 04/09/2024 Overview (04/09/2024): Tachycardia, Symptomatic Ventricular Assessment & Plan (12/13/2024 8:48 AM EDT): Chronic condition; stable. Continue amiodarone as prescribed. Follow up with cardiology as indicated. Assessment & Plan (06/23/2024 8:00 PM EDT): Chronic condition; no recurrence. Continue on amiodarone as prescribed per shop welder recommendations. Has cardiac defibrillator in place. Cataract associated with typ e 2 diabetes mellitus (CMS/HCC V24, CMS/HCC V28) 04/09/2024 Assessment & Plan (12/13/2024 8:43 AM EDT): Chronic condition; surgery for cataracts no yet indicated. Encourage yearly eye exam. Assessment & Plan (06/23/2024 7:41 PM EDT): Chronic condition. Surgery not yet as of last note in 2022. In 2023 PAR was seen by dam attendant but did not allowed for a dilated exam. No mention of cataract in progress note. Recommend yearly eye exams. Presbyopia 04/09/2024 Assessment & Plan (12/13/2024 9:07 AM EDT): Chronic condition; stable. Recommended yearly eye exam. Assessment & Plan (06/23/2024 8:28 PM EDT): Chronic condition; stable. Continue to wear eyeglasses. Recommend yearly eye exam. Arcus senilis of both eyes 04/09/2024 Assessment & Plan (12/13/2024 8:44 AM EDT): Chronic condition; monitor with yearly eye exam. Assessment & Plan (06/23/2024 7:42 PM EDT): Chronic condition; unchanged. Follow up with optometry for yearly examination. Vestibular migraine 04/09/2024 Assessment & Plan (12/13/2024 8:42 AM EDT): >>ASSESSMENT AND PLAN FOR HEADACHE WRITTEN ON 08/16/2024 3:48 PM BY SUSY GILMORE MD Gave tylenol 650mg oral. IM of ketorolac and decadron 4mg. Ordered topiramate 50mg, to be sent to pt's home tomorrow. Note: after 30 minutes, pt reported that headache had fully resolved. Orders: topiramate (TOPAMAX) 50 mg tablet; Take 1 tablet (50 mg total) by mouth 1 (one) time each day for 28 days. ketorolac 30 mg/mL injection; Inject 1 mL (30 mg total) into the shoulder, thigh, or buttocks 1 (one) time for 1 dose. dexAMETHasone (DECADRON) injection 4 mg acetaminophen (TYLENOL) tablet 650 mg Assessment & Plan (12/13/2024 8:42 AM EDT): >>ASSESSMENT AND PLAN FOR HEADACHE WRITTEN ON 08/23/2024 1:29 PM BY MILE TOBIAS NP Increase topriamate to 100 mg each evening starting next week. Assessment & Plan (12/13/2024 8:39 AM EDT): Chronic condition; labile. Continue current dose of topiamate. Conisder adjusting dose in the near future. Assessment & Plan (09/05/2024 3:56 PM EDT): Continue totipalmate 100 mg nightly. Headaches still occurring daily. MIGUELANGEL has neurology appointment 10/02/24. Assessment & Plan (12/13/2024 8:42 AM EDT): >>ASSESSMENT AND PLAN FOR VESTIBULAR MIGRAINE WRITTEN ON 06/23/2024 7:43 PM BY MILE TOBIAS NP One episode treated with Toradol injection IM. PAR denies any reoccurrence of migraine. Monitor. >>ASSESSMENT AND PLAN FOR HEADACHE WRITTEN ON 06/23/2024 7:15 PM BY MILE TOBIAS NP Unilateral headache, recurrent and self-limiting. Pain does not radiate, non tender over zoroastrianism. CT brain from showed no acute finding. PAR refused referral to neurologist in the past, but now is agreeable to see one. Parkinsonism (CMS/HCC V24, CMS/HCC V28) 04/09/19 Overview (12/13/2024): >>OVERVIEW FOR TREMOR OF BOTH HANDS WRITTEN ON 04/09/2024 9:51 AM BY STEFFANIE CHINO Tremor, Right Arm Assessment & Plan (12/13/2024 8:58 AM EDT): >>ASSESSMENT AND PLAN FOR TREMOR OF BOTH HANDS WRITTEN ON 06/23/2024 8:12 PM BY MILE TOBIAS NP Chronic condition; may be drug induced vs Parkinson's disease. Positive FMH for parkinson's. Refer to neurologist. Assessment & Plan (12/13/2024 8:58 AM EDT): >>ASSESSMENT AND PLAN FOR TREMOR OF BOTH HANDS WRITTEN ON 12/03/2024 11:49 AM BY SUSY GILMORE MD Appears to be linked to his anxiety, and functional, though he does have underlying Parkinsonian tremors. Assessment & Plan (12/13/2024 8:40 AM EDT): Improved since stopping SNRI. Continue to monitor. Assessment & Plan (08/23/2024 3:00 PM EDT): PAR to maintain follow up 10/02. He unfortunately missed appointment for 08/14. Family seeking a second opinion on diagnosis. Assessment & Plan (08/16/2024 3:48 PM EDT): Pt is concerned about his hand tremors. They started a year ago, in his R hand, then in both arms. His brother has Parkinson's. We reviewed the 4 cardinal signs of Parkinson's Disease: Bradykinesia (does not have this) Resting tremor, which disappears with intentional movement. (Present) Balance problems, gait (he has a festinating gait) Cogwheel rigidity (present) We spent a lot of time discussing the nature of Parkinson's, the decrease in dopamine neurons and paucity of dopamine in the substantia nigra of the brain. Sterling wanted to know 'for sure' if he has Parkinson's, with radiology testing. I let him know that early on, an MR of the brain may not show any abnormalities, and that cannot rule out PD. If present, there would be hyperintensity of T2.... Currently he does not yet need sinemet (often improvement with sinemet will prove the underlying problem of PD). I offered to have him seen by Neurology, which he agreed to. On further examination of the chart, pt already had a Neurology appt on 08/14/24. Will put a referral for possible PD, to Neurology. Polysubstance abuse (CMS/[facility] V24, CMS/[facility] V28) 0 11/08/2021 Assessment & Plan (12/13/2024 9:07 AM EDT): Chronic condition; denies use od ilicit substance. Advised to avoid use of drugs. Assessment & Plan (12/03/2024 11:49 AM EDT): Getting a UDS, given his altered sensorium over the past few days. Assessment & Plan (06/23/2024 8:23 PM EDT): Admits to occassional cannabis use and cocaine use in the past. Encourage avoidance. CAD (coronary artery disease) 12/16/2020 Assessment & Plan (12/13/2024 8:54 AM EDT): Chronic condition; stable. Continue current medications. Follow with cardiology as indicated. Assessment & Plan (06/23/2024 7:52 PM EDT): Chronic condition; stable. Asymptomatic. Continue current medication regimen. Cardiac defibrillator in place 12/16/2020 Assessment & Plan (12/13/2024 8:53 AM EDT): Chronic condition; monitored per cardiology. No recent episodes of arrhythmias. Assessment & Plan (06/23/2024 7:53 PM EDT): Monitored per cardiology. Stable. Acute on chronic combined sy stolic and diastolic congestive heart failure (CMS/HCC V24, CMS/HCC V28) 12/16/2020 Assessment & Plan (12/13/2024 8:55 AM EDT): >>ASSESSMENT AND PLAN FOR CHRONIC SYSTOLIC CONGESTIVE HEART FAILURE (CMS/HCC V24, CMS/HCC V28) WRITTEN ON 12/03/2024 11:49 AM BY SUSY GILMORE MD Needs major diuresis. For now, will give Sterling just 5 days of metolazone. Can repeat next week, if needed. Orders: metOLazone (ZAROXOLYN) 5 mg tablet; Take 1 tablet (5 mg total) by mouth 1 (one) time each day in the morning. Assessment & Plan (12/13/2024 8:55 AM EDT): >>ASSESSMENT AND PLAN FOR CHRONIC SYSTOLIC CONGESTIVE HEART FAILURE (CMS/HCC V24, CMS/HCC V28) WRITTEN ON 12/13/2024 8:53 AM BY MILE TOBIAS NP Chronic condition; still has evidence of volume overload. Increase dose of spironolactone to 50 mg daily. Monitor weight. Encourage following a low sodium diet. Assessment & Plan (10/31/2024 7:06 PM EDT): No acute exacerbations of CHF in the past few weeks. -Check weekly weight, by Home Care Rns (attn: Ivana) Assessment & Plan (10/15/2024 12:30 PM EDT): Last echo 11/2023: reduced LVEF 30-35%, systolic and diastolic HF He did not have evidence of CHF, but has hypervolemia. He has not been diuresed as his PCP has directed. Will cc our RD to help him with better diabetic-friendly food choices. Assessment & Plan (09/05/2024 3:48 PM EDT): Chronic condition, advised to take Bumex TID x 3 days, then resume Bumex twice a day. Continue spironolactone as prescribed. Assessment & Plan (08/16/2024 3:48 PM EDT): Reviewed daily limit of 48 to 50oz of fluids. Also advised that he should drink an extra glass of fluids if he walks outside in the heat. Assessment & Plan (08/06/2024 11:20 AM EDT): Noncompliant with diuretic therapy. Not following a low sodium diet consistently. Will discuss with pet caregiver. Also Advised PAR need to take diuretic Bumex twice a day and spironolactone daily as prescribed. Once well has resolved can consider reducing afternoon dose of Bumex to 1/2 tablet. Continue to monitor daily weights. Reevaluate, f/u in 2 weeks. Assessment & Plan (06/23/2024 7:55 PM EDT): Chronic condition; stable. As of Nov 2023, Echo showed EF 30-35%. Continue current medication regimen. Encourage following low sodium diet, PAR admits to not always being compliant. Educated on medication compliance including diuretic therapy. Dyslipidemia 12/16/2020 Assessment & Plan (12/13/2024 9:05 AM EDT): Chronic condition; continue daily statin therapy. Continue monitor lipids yearly. Assessment & Plan (06/23/2024 8:21 PM EDT): Chronic condition; continue daily statin therapy. Recheck lipids. Hypertensive disorder 12/16/2020 Assessment & Plan (12/13/2024 8:51 AM EDT): Chronic condition; stable. BP at goal. Continue current medication. Assessment & Plan (06/23/2024 7:56 PM EDT): Chronic condition; stable. Blood pressure is at goal. Continue current medications. Shortness of breath 12/16/2020 Overview (01/24/2024): Last Assessment & Plan: 62-year-old man who is coming for evaluation of dyspnea on exertion in the setting of history of smoking and severe dilated cardiomyopathy with heart failure and reduced ejection fraction with 20 to 25% EF and abnormal pulmonary function test that show only extrathoracic restriction. I explained Mr. Mejia that the findings are most likely compatible with his cardiovascular history. Usually pulmonary lung function test in the setting of severe heart failure produce a restrictive pattern. His dyspnea is most likely multifactorial and secondary to severe deconditioning, morbid obesity and most importantly, severe heart failure with reduced ejection fraction. I explained him that he does not have COPD. I also educated him and explained to him that the dyspnea is not related to his pain. He has an upcoming appointment with his PCP and cardiology. Assessment & Plan (12/13/2024 8:45 AM EDT): Chronic condition; stable. Multifactorial. Due to CHF, deconditioning, obesity leading to restrictive lung disease. Assessment & Plan (10/11/2024 2:32 PM EDT): Not an issue at this appt. Assessment & Plan (06/23/2024 7:45 PM EDT): Chronic condition, as mentioned by dye colorist dyer most likely multifactorial due to decondition, obesity and CHF. PFT did not show evidence of COPD but a restrictive patten. Type 2 diabetes mellitus wit h hyperglycemia (CMS/HCC V24, CMS/HCC V28) 12/16/2020 Assessment & Plan (12/13/2024 9:05 AM EDT): >>ASSESSMENT AND PLAN FOR DIABETES MELLITUS ([facility] [place] V24, [facility] V28) WRITTEN ON 10/11/2024 2:32 PM BY SUSY GILMORE MD He is on maximum medications, but his dietary management is poor. He also has diabetic gastroparesis, for which he has Linzess. Assessment & Plan (12/13/2024 9:04 AM EDT): Chronic condition; need to repeat Hgba1c. Continue current medications. Assessment & Plan (12/13/2024 9:05 AM EDT): >>ASSESSMENT AND PLAN FOR TYPE 2 DIABETES MELLITUS WITH HYPERGLYCEMIA ([facility] [place] [facility] V24, [facility] V28) WRITTEN ON 06/23/2024 8:21 PM BY MILE TOBIAS NP Chronic condition; last HBA1c was 7.3%. Need to repeat Hgba1c. Goal to avoid further complications of diabetes. >>ASSESSMENT AND PLAN FOR DIABETES MELLITUS ([facility] [place] V24, [facility] V28) WRITTEN ON 06/23/2024 8:20 PM BY MILE TOBIAS NP Chronic condition; continue current medications. Check Hgba1c. Resolved Problems Problem Noted Date Diagnosed Date Resolved Date Contusion of dorsum of right hand 12/03/2024 12/13/2024 Assessment & Plan (12/03/2024 11:49 AM EDT): Therapy: please evaluate him for his R arm and hand pain. He reported falling ONTO his R side, from his R shoulder to R hand, last night. Will order Xray of R hand and R wrist. Orders: XR Wrist 3+ Views Right; Future XR Hand 2 Views Right; Future Nursing: -pls call and let him know we ordered Xrays of his R wrist and R hand (pls call for transportation to be scheduled), to rule out any fractures. -I'm also sending a muscle relaxant, as we discussed in clinic (robaxin 500mg TID, prn, pain of R arm): it will be delivered to him tomorrow (attn: Med room nurse, and pls put in Transportation Room) Seen in emergency room 10/11/202410/31 Assessment & Plan (10/11/2024 2:32 PM EDT): Seen for dyspnea, and as in HPI, we have advised him to call us first, before his symptoms worsen. Follow-up treatment 10/11/2024 11/01/19 Assessment & Plan (10/11/2024 2:32 PM EDT): I can see him in 2 weeks, (attn: Ivana) with recurring 2 week clinic appts until his conditions are managed to his satisfaction. However, I have asked that he be compliant and willing to make some lifestyle changes. Will cc his SW, Chika Bustamante, to discuss how his choices affect his health and his overall prognosis. Cogwheel rigidity 08/26/2024 12/13/2024 Blister of right leg without infection 08/06/2024 08/23/2024 Assessment & Plan (08/06/2024 11:23 AM EDT): Continue to work on reducing edema. Highly advised PAR to take diuretics as prescribed. Nursing to perform wound care 3 times a week. Monitor for infection. Contusion of lower back 07/12/202411/19 Assessment & Plan (07/12/2024 3:47 PM EDT): Advised to apply ice to affected area. Use APAP for pain. Candidiasis of skin 04/09/2024 12/14/19 Assessment & Plan (06/23/2024 8:09 PM EDT): Treated with antifungal cream, symptoms improved. Continue to treat as needed. Neck muscle spasm 04/09/2024 12/13/2024 Assessment & Plan (06/23/2024 8:11 PM EDT): Chronic condition; improved. No acute complaints. Monitor and treat as needed. Onychomycosis 04/09/2024 12/13/2024 Assessment & Plan (06/23/2024 8:15 PM EDT): Chronic condition; stable. Goal to maintain diabetes under control. Continue to follow up with advertising account representative as indicated. Trochanteric bursitis, left hip 04/09/2024 06/23/2024 Encounters Date Type Department Care Team Description 12/16/2024 [facility] [address] [place] [phone] Nora Mauricio, parole officer of left leg, subsequent encounter 12/14/2024 12:30 PM EDT [facility] [address] [phone] Alexandra Arce LPN 12/14/2024 10:00 AM EDT P[facility] Home Care / [facility] [address] [place] [phone] Emilie Callahan 12/13/2024 6:00 PM EDT [facility] Home Care / [facility] [address] [place] [phone] My Phillips 12/13/2024 9:30 AM EDT P[facility] Home Care / [facility] [address] [place] [phone] Merlin Forbes 12/13/2024 Plan of Care Documentation [facility] [address] [phone] 12/13/2024 Lab [facility] [address] [place] [phone] Nora Mauricio, parole officer of left leg, subsequent encounter 12/12/2024 6:00 PM EDT P[facility] Home Care / [facility] [address] [place] [phone] My Phillips 12/12/2024 10:30 AM EDT P[facility] Home Care / [facility] [address] [place] [phone] Merlin Forbes 12/12/2024 1:24 AM EDT - 12/13/2024 3:30 PM EDT Hospital Encounter [facility] [address] [place] [phone] Tyler Ortiz MD Kela, Kashyap Devendrabhai, MD Hypokalemia (Primary Dx); CKD stage 3a, GFR 45-59 ml/min ([facility] V24, [facility] V28); Anxiety; Acute on chronic combined systolic and diastolic congestive heart failure ([facility] V24, [facility] V28) Discharge Disposition: Home-Health Care [facility] 12/12/2024 PACE Admissions [address] [phone] Eileen Suarez, EDD Hypokalemia (Primary Dx); Anxiety; Encephalopathy acute; Chronic systolic CHF (congestive heart failure) ([facility] V24, [facility] V28); Hyponatremia 12/12/[address] [phone] Nora Mauricio, parole officer of left leg, subsequent encounter 12/11/2024 6:00 PM EDT PACE Home Care / PACE Home Visit [facility] [address] [place] [phone] My Phillips 12/11/2024 11:00 AM EDT PACE Assessment [address] [phone] Audrey Baptiste, EDD Adult general medical examination (Primary Dx) 12/11/2024 11:00 AM EDT PACE Assessment [address] [phone] Mile Tobias, SECURITY MANAGER Leg pain, anterior, left (Primary Dx); Abnormal LFTs; Acute on chronic combined systolic and diastolic congestive heart failure ([facility] V24, [facility] V28); Anxiety disorder due to general medical condition with panic attack; Vestibular migraine; Radiculopathy, cervical; Parkinsonism, unspecified Parkinsonism type ([facility] V24, [facility] V28); Meralgia paresthetica of left side; Diabetic polyneuropathy associated with type 2 diabetes mellitus ([facility] V24, [facility] V28); Cataract associated with type 2 diabetes mellitus ([facility] V24, [facility] V28); Arcus senilis of both eyes; Shortness of breath; Restrictive lung disease; Obstructive sleep apnea; Chronic allergic rhinitis; Ventricular tachycardia ([facility] V24, [facility] V28); Type 2 diabetes mellitus with peripheral artery disease ([facility] V24, [facility] V28); Hypertensive heart disease with heart failure ([facility] V24, [facility] V28); Primary hypertension; Chronic venous insufficiency; Chronic systolic congestive heart failure ([facility] V24, [facility] V28); Cardiac defibrillator in place; Coronary artery disease involving [place] coronary artery of [place] and [place] heart without angina pectoris; Vitamin D deficiency; Obesity, morbid ([facility] V24, [facility] V28); Constipation, chronic; Calculus of gallbladder without cholecystitis without obstruction; Benign prostatic hyperplasia with urinary frequency; Xerosis of skin; Plantar fasciitis; Other specified disorders of bone density and structure, multiple sites; Primary osteoarthritis of both knees; Leg wound, left, sequela; Callus; Type 2 diabetes mellitus with hyperglycemia, without long-term current use of insulin ([facility] V24, [facility] V28); Erectile dysfunction associated with type 2 diabetes mellitus ([facility] V24, [facility] V28); Dyslipidemia; Smokes cigarettes; Sleep paralysis; Presbyopia; Polysubstance abuse ([facility] V24, [facility] V28); Other specified anxiety disorders; Neurologic gait dysfunction; Medication management; Insomnia due to medical condition; Depression, major, recurrent, moderate ([facility] V24, [facility] V28); Alcohol abuse, episodic 12/11/2024 9:00 AM EDT P[facility] Home Care / PACE Home Visit [facility] [address] [place] [phone] Merlin Forbes 12/11/2024 [facility]phone [facility] [address] [place] [phone] Audrey Baptiste RN 12/11/2024 Lab [facility] [address] [phone] Nora Mauricio, parole officer of left leg, subsequent encounter 12/10/2024 6:00 PM EDT [facility] Home Care / [facility] [address] [place] [phone] My Phillips 12/10/2024 9:45 AM EDT P[facility] Home Care / [facility] [address] [place] [phone] Merlin Forbes 12/10/2024 8:15 AM EDT [facility] [address] [place] [phone] Nkechi Grajeda, EDD 12/10/2024 7:00 AM EDT [facility] [address] [place] [phone] Nkechi Grajeda, EDD 12/10/2024 [facility] [address] [place] [phone] Nora Mauricio, parole officer of left leg, subsequent encounter 12/09/2024 6:00 PM EDT PACE Home Care / PACE Home Visit [facility] [place] [facility] [address] [place] [phone] My Phillips 12/09/2024 9:30 AM EDT PACE Home Care / PACE Home Visit [facility] [address] [place] [phone] Merlin Forbes 12/09/2024 Telephone [facility] [place] [facility] [address] [place] [phone] Audrey Baptiste RN 12/09/2024 [facility] [place] [facility] [address] [place] [phone] Nora Mauricio, parole officer of left leg, subsequent encounter 12/08/2024 8:30 AM EDT PACE Home Care / PACE Home Visit [facility] [place] [facility] [address] [place] [phone] Anabelle Valdez 12/07/2024 8:30 AM EDT PACE Home Care / PACE Home Visit [facility] [place] [facility] [address] [place] [phone] Anabelle Valdez 12/06/2024 6:00 PM EDT PACE Home Care / PACE Home Visit [facility] [place] [facility] [address] [place] [phone] My Phillips 12/06/2024 12:00 PM EDT Clinical Support [facility] [place] [facility] [address] [place] [phone] Nkechi Grajeda RN 12/06/2024 9:30 AM EDT PACE Home Care / PACE Home Visit [facility] [place] [facility] [address] [place] [phone] Merlin Forbes 12/06/2024 [facility] [place] [facility] [address] [place] [phone] Nora Mauricio, parole officer of left leg, subsequent encounter 12/05/2024 6:00 PM EDT PACE Home Care / PACE Home Visit [facility] [address] [place] [phone] My Phillips 12/05/2024 10:30 AM EDT PACE Home Care / PACE Home Visit [facility] [place] [facility] [address] [place] [phone] Merlin Forbes 12/05/2024 [facility] [place] [facility] [address] [place] [phone] Nora Mauricio, parole officer of left leg, subsequent encounter 12/04/2024 6:00 PM EDT PACE Home Care / PACE Home Visit [facility] [place] [facility] [address] [place] [phone] My Phillips 12/04/2024 10:00 AM EDT PACE Home Care / PACE Home Visit [facility] [place] [facility] [address] [place] [phone] Merlin Forbes 12/04/2024 Lab [facility] [place] [facility] [address] [place] [phone] Nora Mauricio, parole officer of left leg, subsequent encounter 12/03/2024 6:00 PM EDT PACE Home Care / PACE Home Visit [facility] [place] [facility] [address] [place] [phone] My Phillips 12/03/2024 11:50 AM EDT Ancillary Procedure [facility] - [address] [facility] [address] [place] [address] 12/03/2024 10:00 AM EDT Clinical Support [facility] [place] [place] [address] [phone] Audrey Baptiste RN 12/03/2024 10:00 AM EDT Office Visit [facility] [place] [place] [address] [phone] Susy Gilmore MD Chronic systolic congestive heart failure (CMS/HCC V24, CMS/HCC V28); Radiculopathy, cervical; Hypertensive heart disease with heart failure (CMS/HCC V24, CMS/HCC V28); Chronic venous insufficiency; Tremor of both hands; Polysubstance abuse (CMS/HCC V24, CMS/HCC V28); Generalized anxiety disorder with panic attacks; Bilateral leg edema; Leg wound, left, sequela; Contusion of dorsum of right hand; Bilateral lower extremity edema 12/03/2024 9:30 AM EDT PACE Home Care / [place] Home Visit [facility] [place] [facility] [address] [place] [phone] Merlin Forbes 12/03/2024 [facility] [address] [place] [phone] Audrey Baptiste RN 12/03/2024 Telephone [facility] [address] [place] [address] Dillon Mendosa MD 12/03/2024 [facility] In Home Nursing and Aide Services [address] [place] [phone] Ivana Chowdhury, LETHA 12/03/2024 Lab [facility] [address] [place] [phone] Nora Mauricio, parole officer of left leg, subsequent encounter 12/02/2024 6:00 PM EDT PACE Home Care / PACE Home Visit [facility] In Home Nursing and Aide Services [address] [place] [phone] My Phillips 12/02/2024 10:00 AM EDT Clinical [facility] [address] [place] [phone] Nkechi Grajeda, EDD 12/02/2024 9:30 AM EDT PACE Home Care / [place] Home [place] [facility] [place] [place] [facility] [address] [place] [phone] Merlin Forbes 12/02/2024 Lab [facility] [address] [place] [phone] Nora Mauricio, parole officer of left leg, subsequent encounter 12/01/2024 9:05 PM EDT - 12/02/2024 Emergency [facility] [address] [place] [phone] Romina Alexis MD Congestive heart failure, unspecified HF chronicity, unspecified heart failure type ([facility] V24, [facility] V28) (Primary Dx) Discharge Disposition: Home or Self Care 12/01/2024 PACE Admissions [address] [phone] Eileen Suarez RN Congestive heart failure, unspecified HF chronicity, unspecified heart failure type ([facility] V24, [facility] V28) (Primary Dx); Shortness of breath 11/29/2024 6:00 PM EDT PACE Home Care / PACE Home Visit [facility] In Home Nursing and Aide Services [address] [place] [phone] My Phillips 11/29/2024 2:00 PM EDT Office Visit [address] [phone] Mile Tobias, JOHNATHAN Acute viral sinusitis (Primary Dx); Chronic systolic congestive heart failure ([facility] V24, [facility] V28); Shortness of breath; Generalized anxiety disorder with panic attacks 11/29/2024 11:00 AM EDT Clinical Support [address] [phone] Nkechi Grajeda RN 11/29/2024 9:30 AM EDT PACE Home Care / PACE Home Visit [facility] In Home Nursing and [facility]ide Services [address] [place] [phone] Merlin Forbes 11/29/2024 Telephone [facility] - [address] [facility] [address] [place] [phone] Dillon Mendosa MD 11/29/2024 Lab [facility] [place] [facility] [address] [place] [phone] Nora Mauricio, parole officer of left leg, subsequent encounter 11/28/2024 6:00 PM EDT PACE Home Care / PACE Home Visit [facility] [place] [facility] [address] [place] [phone] My Phillips 11/28/2024 9:15 AM EDT PACE Home Care / PACE Home Visit [facility] [place] [facility] [address] [place] [phone] Merlin Forbes 11/28/2024 Telephone [facility] [place] [facility] [address] [place] [phone] Audrey Baptiste RN 11/28/2024 [place] [facility] [place] [facility] [address] [place] [phone] Nora Mauricio RN Wound of left leg, subsequent encounter 11/27/2024 6:00 PM EDT PACE Home Care / PACE Home Visit [facility] [place] [facility] [address] [place] [phone] My Phillips 11/27/2024 10:00 AM EDT PACE Home Care / PACE Home Visit [facility] [place] [facility] [address] [place] [phone] Merlin Forbes 11/27/2024 [facility] [place] [facility] [address] [place] [phone] Nora Mauricio parole officer of left leg, subsequent encounter 11/26/2024 6:00 PM EDT PACE Home Care / PACE Home Visit [facility] [place] [facility] [address] [place] [phone] My Phillips 11/26/2024 9:30 AM EDT PACE Home Care / PACE Home Visit [facility] [place] [facility] [address] [place] [phone] Merlin Forbes 11/26/2024 7:00 AM EDT Clinical Support [facility] [place] [facility] [address] [place] [phone] Nkechi Grajeda, EDD 11/26/2024 [facility] [place] [facility] [address] [place] [phone] Nora Mauricio, parole officer of left leg, subsequent encounter 11/25/2024 6:00 PM EDT PACE Home Care / PACE Home Visit [facility] [place] [facility] [address] [place] [phone] My Phillips 11/25/2024 9:30 AM EDT PACE Home Care / PACE Home Visit [facility] [place] [facility] [address] [place] [phone] Merlin Forbes 11/25/2024 9:00 AM EDT Clinical Support [facility] [place] [place] [facility] [address] [phone] Nkechi Grajeda, EDD 11/25/2024 [place] [facility] [place] [facility] [address] [place] [phone] Rich Mehta NP 11/25/2024 [facility] [place] [facility] [address] [place] [phone] Nora Mauricio, parole officer of left leg, subsequent encounter 11/24/2024 8:30 AM EDT PACE Home Care / PACE Home Visit [facility] [place] [facility] [address] [place] [phone] Magaly Verdugo 11/23/2024 9:00 AM EDT PACE Home Care / PACE Home Visit [facility] [place] [facility] [address] [place] [phone] Magaly Verdugo 11/22/2024 6:00 PM EDT PACE Home Care / PACE Home Visit [facility] [place] [facility] [address] [place] [phone] My Phillips 11/22/2024 11:00 AM EDT Clinical Support [facility] [place] [facility] [address] [place] [phone] Nkechi Grajeda, EDD 11/22/2024 9:30 AM EDT PACE Home Care / PACE Home Visit [facility] [place] [facility] [address] [place] [phone] Merlin Forbes 11/22/2024 Lab [facility] [place] [facility] [address] [place] [phone] Nora Mauricio, parole officer of left leg, subsequent encounter 11/21/2024 6:00 PM EDT PACE Home Care / PACE Home Visit [facility] [place] [facility] [address] [place] [phone] My Phillips 11/21/2024 10:30 AM EDT PACE Home Care / PACE Home Visit [facility] [place] [facility] [address] [place] [phone] Merlin Forbes 11/21/2024 [facility] [place] [facility] [address] [place] [phone] Nora Mauricio, parole officer of left leg, subsequent encounter 11/20/2024 6:00 PM EDT PACE Home Care / PACE Home Visit [facility] [place] [facility] [address] [place] [phone] My Phillips 11/20/2024 10:00 AM EDT PACE Home Care / PACE Home Visit [facility] [place] [facility] [address] [place] [phone] Merlin Forbes 11/19/2024 6:00 PM EDT PACE Home Care / PACE Home Visit [facility] [place] [facility] [address] [place] [phone] My Phillips 11/19/2024 7:00 AM EDT Clinical Support [facility] [place] [facility] [address] [place] [phone] Nkechi Grajeda, EDD 11/19/2024 Lab [facility] [place] [address] [phone] Nora Mauricio, parole officer of left leg, subsequent encounter 11/18/2024 6:00 PM EDT PACE Home Care / PACE Home Visit [facility] [place] [facility] [address] [place] [phone] My Phillips 11/18/2024 8:30 AM EDT PACE Home Care / PACE Home Visit [facility] [place] [facility] [address] [place] [phone] Merlin Forbes 11/18/2024 Lab [facility] [place] [place] [address] [phone] Nora Mauricio RN Wound of left leg, subsequent encounter 11/16/2024 PACE On-Call [facility] [place] [address] [phone] Susy Gilmore MD Acute pain of right foot (Primary Dx) 11/15/2024 6:00 PM EDT PACE Home Care / PACE Home Visit [facility] [place] [facility] [address] [place] [phone] My Phillips 11/15/2024 11:00 AM EDT Clinical Support [facility] [place] [place] [address] [phone] Nkechi Grajeda EDD 11/15/2024 9:30 AM EDT PACE Home Care / PACE Home Visit [facility] [place] [facility] [address] [place] [phone] Merlin Forbes 11/15/2024 [facility] [address] [place] [phone] Nora Mauricio, parole officer of left leg, subsequent encounter 11/14/2024 6:00 PM EDT PACE Home Care / PACE Home Visit [facility] [place] [facility] [address] [place] [phone] My Phillips 11/14/2024 10:30 AM EDT PACE Home Care / PACE Home Visit [facility] [place] [facility] [address] [place] [phone] Merlin Forbes 11/14/2024 10:00 AM EDT [facility] [address] [phone] Nkechi Grajeda RN 11/14/[address] [phone] Nora Mauricio, parole officer of left leg, subsequent encounter 11/13/2024 6:00 PM EDT PACE Home Care / PACE Home Visit [facility] [place] [facility] [address] [place] [phone] My Phillips 11/13/2024 10:00 AM EDT PACE Home Care / PACE Home Visit [facility] [place] [facility] [address] [place] [phone] Merlin Forbes 11/13/2024 [facility] [address] [place] [phone] Nora Mauricio, parole officer of left leg, subsequent encounter 11/12/2024 6:00 PM EDT PACE Home Care / PACE Home Visit [facility] [place] [facility] [address] [place] [phone] My Phillips 11/12/2024 9:30 AM EDT PACE Home Care / PACE Home Visit [facility] [place] [facility] [address] [place] [phone] Merlin Forbes 11/12/2024 8:15 AM EDT Clinical Support [facility] [place] [facility] [address] [place] [phone] Nkechi Grajeda, EDD 11/12/2024 7:00 AM EDT Clinical Support [facility] [place] [facility] [address] [place] [phone] Nkechi Grajeda, EDD 11/12/2024 [facility] [place] [facility] [address] [place] [phone] Nora Mauricio, parole officer of left leg, subsequent encounter 11/11/2024 6:00 PM EDT PACE Home Care / PACE Home Visit [facility] [place] [facility] [address] [place] [phone] My Phillips 11/11/2024 10:00 AM EDT Clinical Support [facility] [place] [facility] [address] [place] [phone] Nkechi Grajeda, EDD 11/11/2024 8:45 AM EDT PACE Home Care / PACE Home Visit [facility] [place] [facility] [address] [place] [phone] Merlin Forbes 11/11/2024 Telephone [facility] [address] [place] [phone] Audrey Baptiste RN 11/11/2024 [facility] [address] [place] [phone] Nora Mauricio, parole officer of left leg, subsequent encounter 11/10/2024 8:45 AM EDT PACE Home Care / [facility] Home Visit [facility] [address] [place] [phone] Cruzito Woodall 11/09/2024 8:30 AM EDT PACE Home Care / [facility]ACE Home Visit [facility] [place] [facility] [address] [place] [phone] Anabelle Valdez 11/08/2024 6:00 PM EDT PACE Home Care / PACE Home Visit [facility] [place] [facility] [address] [place] [phone] My Phillips 11/08/2024 9:30 AM EDT PACE Home Care / PACE Home Visit [facility] [place] [facility] [address] [place] [phone] Merlin Forbes 11/08/2024 [facility] [place] [facility] [place] [facility] [address] [place] [phone] Rich Mehta NP 11/08/2024 [facility] [place] [place] [facility] [address] [place] [phone] Rich Mehta NP 11/08/2024 Lab [facility] [address] [place] [phone] Nora Mauricio, parole officer of left leg, subsequent encounter 11/07/2024 6:00 PM EDT PACE Home Care / [facility]ACE Home Visit [facility] [place] [facility] [address] [place] [phone] My Phillips 11/07/2024 10:30 AM EDT PACE Home Care / PACE Home Visit [facility] [place] [facility] [address] [place] [phone] Merlin Forbes 11/07/2024 10:00 AM EDT Clinical Support [facility] [place] [facility] [address] [place] [phone] Nkechi Grajeda, EDD 11/07/2024 [facility] [address] [place] [phone] Nora Mauircio, parole officer of left leg, subsequent encounter 11/06/2024 6:00 PM EDT PACE Home Care / PACE Home Visit [facility] [place] [facility] [address] [place] [phone] My Phillips 11/06/2024 10:00 AM EDT PACE Home Care / PACE Home Visit [facility] [place] [facility] [address] [place] [phone] Merlin Forbes 11/06/2024 [facility] [address] [phone] Nora Mauricio RN Wound of left leg, subsequent encounter 11/05/2024 6:00 PM EDT PACE Home Care / PACE Home Visit [facility] [place] [facility] [address] [place] [phone] Magaly Verdugo 11/05/2024 9:30 AM EDT PACE Home Care / PACE Home Visit [facility] [place] [facility] [address] [place] [phone] Merlin Forbes 11/05/2024 7:00 AM EDT Clinical Support [facility] [place] [facility] [address] [place] [phone] Alexandra Arce LPN 11/05/2024 Telephone [facility] [address] [place] [phone] Audrey Baptiste RN 11/05/2024 [facility] [address] [place] [phone] Nora Mauricio, parole officer of left leg, subsequent encounter 11/04/2024 6:00 PM EDT PACE Home Care / PACE Home Visit [facility] [place] [facility] [address] [place] [phone] My Phillips 11/04/2024 9:30 AM EDT PACE Home Care / PACE Home Visit [facility] [place] [facility] [address] [place] [phone] Merlin Forbes 11/04/2024 Telephone [facility] [address] [place] [phone] Audrey Baptiste RN 11/04/2024 Lab [facility] [address] [place] [phone] Nora Mauricio, parole officer of left leg, subsequent encounter 11/01/2024 6:00 PM EDT PACE Home Care / PACE Home Visit [facility] [place] [facility] [address] [place] [phone] My Phillips 11/01/2024 10:00 AM EDT Clinical Support [facility] [place] [facility] [address] [phone] Nkechi Grajeda, EDD 11/01/2024 9:30 AM EDT PACE Home Care / PACE Home Visit [facility] [place] [facility] [address] [place] [phone] Luiza La 10/31/2024 6:00 PM EDT PACE Home Care / PACE Home Visit [facility] [place] [facility] [address] [place] [phone] My Phillips 10/31/2024 2:00 PM EDT Clinical [place] [facility] [place] [facility] [address] [place] [phone] oNra Mauricio, RN 10/31/2024 2:00 PM EDT Office Visit [facility] [place] [facility] [address] [place] [phone] Susy Gilmore MD Ulcer of left lower leg, limited to breakdown of skin (CMS/HCC V24, CMS/HCC V28) (Primary Dx); Severe pain; Bilateral leg edema; Acute on chronic combined systolic and diastolic congestive heart failure (CMS/HCC V24, CMS/HCC V28); Neurologic gait dysfunction; Poor prognosis; Goals of care, counseling/discussio n 10/31/2024 10:30 AM EDT PACE Home Care / PACE Home Visit [facility] [place] [facility] [address] [place] [phone] Luiza La 10/30/2024 10:30 PM EDT Ancillary Procedure [facility] - [address] [place] [address] 10/30/2024 6:00 PM EDT PACE Home Care / PACE Home Visit [facility] [place] [facility] [address] [place] [phone] My Phillips 10/30/2024 9:45 AM EDT PACE Home Care / PACE Home Visit [facility] [place] [facility] [address] [place] [phone] Luiza La 10/30/2024 9:30 AM EDT PACE Home Care / PACE Home Visit [facility] [place] [facility] [address] [place] [phone] Anabelle Valdez 10/29/2024 6:00 PM EDT PACE Home Care / PACE Home Visit [facility] [place] [facility] [address] [place] [phone] My Phillips 10/29/2024 9:15 AM EDT Clinical Support [facility] [place] [facility] [address] [place] [phone] Nkechi Grajeda RN 10/29/2024 7:00 AM EDT Clinical Support [facility] [place] [facility] [address] [place] [phone] Nkechi Grajeda RN 10/28/2024 6:00 PM EDT PACE Home Care / PACE Home Visit [facility] [place] [facility] [address] [place] [phone] My Phillips 10/28/2024 12:00 PM EDT Clinical Support [facility] [place] [facility] [address] [place] [phone] Nkechi Grajeda RN 10/28/2024 9:30 AM EDT PACE Home Care / PACE Home Visit [facility] [place] [facility] [address] [place] [phone] My Phillips 10/26/2024 8:30 AM EDT PACE Home Care / PACE Home Visit [facility] [place] [facility] [address] [place] [phone] Anabelle Valdez 10/25/2024 6:00 PM EDT PACE Home Care / PACE Home Visit [facility] [place] [facility] [address] [place] [phone] My Phillips 10/25/2024 12:00 PM EDT Clinical Support [facility] [place] [facility] [address] [place] [phone] Nkechi Grajeda RN 10/25/2024 9:30 AM EDT PACE Home Care / PACE Home Visit [facility] [place] [facility] [address] [place] [phone] Merlin Forbes 10/24/2024 6:00 PM EDT PACE Home Care / PACE Home Visit [facility] [place] [facility] [address] [place] [phone] My Phillips 10/24/2024 10:30 AM EDT P[facility] Home [facility] / PACE Home Visit [facility] [address] [place] [phone] Merlin Forbes 10/24/2024 10:00 AM EDT Clinical Support [facility] [address] [place] [phone] Nkechi Grajeda, EDD 10/23/2024 6:00 PM EDT P[facility] Home [facility] / PACE Home Visit [facility] [address] [place] [phone] My Phillips 10/23/2024 10:00 AM EDT PACE Home Care / PACE Home Visit [facility] [address] [place] [phone] Merlin Forbes 10/22/2024 6:00 PM EDT PACE Home Care / PACE Home Visit [facility] [address] [place] [phone] My Phillips 10/22/2024 9:30 AM EDT PACE Home Care / PACE Home Visit [facility] [address] [place] [phone] Merlin Forbes 10/22/2024 7:00 AM EDT Clinical Support [facility] [address] [place] [phone] Nkechi Grajeda, EDD 10/21/2024 6:00 PM EDT P[facility] Home Care / PACE Home Visit [facility] [address] [place] [phone] My Phillips 10/21/2024 10:00 AM EDT Clinical Support [facility] [address] [place] [phone] Alexandra Arce LPN 10/21/2024 9:30 AM EDT P[facility] Home [facility] / PACE Home Visit [facility] [address] [place] [phone] Merlin Forbes 10/18/2024 6:00 PM EDT PACE Home Care / PACE Home Visit [facility] [address] [place] [phone] My Phillips 10/18/2024 11:00 AM EDT Clinical Support [facility] [address] [place] [phone] Nkechi Grajeda RN 10/18/2024 9:30 AM EDT PACE Home Care / PACE Home Visit [facility] [address] [place] [phone] Merlin Forbes 10/17/2024 6:00 PM EDT P[facility] Home [facility] / PACE Home Visit [facility] [address] [place] [phone] My Phillips 10/17/2024 10:45 AM EDT Treatment [facility] MA Physical Therapy [address] [place] [phone] Duyen Huerta, PT 10/17/2024 10:30 AM EDT [facility] Home [facility] / PACE Home Visit [facility] [address] [place] [phone] Merlin Forbes 10/16/2024 6:00 PM EDT [facility] Home [facility] / PACE Home Visit [facility] [address] [place] [phone] My Phillips 10/16/2024 10:00 AM EDT PACE Home [facility] / PACE Home Visit [facility] [address] [place] [phone] Merlin Forbes 10/15/2024 6:00 PM EDT P[facility] Home [facility] / PACE Home Visit [facility] [address] [place] [address] My Phillips 10/15/2024 9:30 AM EDT P[facility] Home [facility] / PACE Home Visit [facility] [address] [place] [address] Merlin Forbes 10/15/2024 PACE Fall [facility]zma MA[facility] MA Social Work [address] [place] [phone] No Garcia LICSW 10/14/2024 6:00 PM EDT P[facility] Home [facility] / PACE Home Visit [facility] [address] [place] [phone] My Phillips 10/14/2024 11:00 AM EDT Treatment [facility] MA Physical Therapy [address] [place] [phone] Dimple Sofia PTA 10/14/2024 9:30 AM EDT [facility] Home [facility] / PACE Home Visit [facility] [address] [place] [phone] Merlin Forbes 10/13/2024 8:30 AM EDT PACE Home [facility] / PACE Home Visit [facility] [address] [place] [phone] Anabelle Valdez 10/12/2024 8:30 AM EDT PACE Home Care / PACE Home Visit [facility] [address] [place] [phone] Anabelle Valdez 10/11/2024 6:00 PM EDT P[facility] Home [facility] / PACE Home Visit [facility] [address] [place] [phone] My Phillips 10/11/2024 10:00 AM EDT Office Visit [facility] [address] [place] [address] Susy Gilmore MD Shortness of breath (Primary Dx); Acute on chronic combined systolic and diastolic congestive heart failure ([facility] V24, [facility] V28); Type 2 diabetes mellitus with other circulatory complication, without long-term current use of insulin ([facility] V24, [facility] V28); Mixed simple and mucopurulent chronic bronchitis ([facility] V24, [facility] V28); Medication management; Seen in emergency room; Alcohol abuse, episodic; Follow-up treatment; Bilateral lower extremity edema; Edema of right lower leg 10/11/2024 9:30 AM EDT P[facility] Home [facility] / PACE Home Visit [facility] [address] [place] [phone] Merlin Forbes 10/11/2024 3:01 AM EDT - 10/11/2024 6:16 AM EDT Emergency [facility] [address] [place] [phone] Dyspnea, unspecified type (Primary Dx); Shortness of breath Discharge Disposition: Home or Self Care 10/11/2024 PACE Admissions [facility] [address] [place] [phone] Eileen Suarez RN Dyspnea, unspecified type (Primary Dx) 10/10/2024 6:00 PM EDT P[facility] Home Care / PACE Home Visit [facility] [address] [place] [phone] My Phillips 10/10/2024 10:30 AM EDT P[facility] Home Care / PACE Home Visit [facility] [address] [place] [phone] Merlin Forbes 10/09/2024 6:00 PM EDT PACE Home Care / PACE Home Visit [facility] [address] [place] [address] My Phillips 10/09/2024 10:00 AM EDT P[facility] Home Care / PACE Home Visit [facility] [address] [place] [phone] Merlin Forbes 10/08/2024 6:00 PM EDT PACE Home Care / PACE Home Visit [facility] [address] [place] [phone] My Phillips 10/08/2024 9:45 AM EDT PACE Home Care / PACE Home Visit [facility] [address] [place] [phone] Merlin Forbes 10/08/2024 9:15 AM EDT Clinical Support [facility] [address] [place] [phone] Nkechi Grajeda, RN 10/08/2024 7:00 AM EDT Clinical Support [facility] [address] [place] [phone] Nkechi Grajeda, RN 10/07/2024 6:00 PM EDT P[facility] Home Care / PACE Home Visit [facility] [address] [place] [phone] My Phillips 10/07/2024 9:30 AM EDT PACE Home Care / PACE Home Visit [facility] [address] [place] [phone] Merlin Forbes 10/04/2024 6:00 PM EDT PACE Home Care / PACE Home Visit [facility] [address] [place] [address] My Phillips 10/04/2024 9:30 AM EDT P[facility] Home Care / PACE Home Visit [facility] [address] [place] [address] Merlin Forbes 10/03/2024 6:00 PM EDT P[facility] Home [facility] / PACE Home Visit [facility] [address] [place] [address] My Phillips 10/03/2024 10:30 AM EDT PACE Home Care / PACE Home Visit [facility] [address] [place] [phone] Merlin Forbes 10/02/2024 6:00 PM EDT PACE Home Care / PACE Home Visit [facility] [address] [place] [phone] My Phillips 10/02/2024 12:10 PM EDT PACE External Visit Uzma MAHONEY MA [address] [place] [phone] Parkinsonism, unspecified Parkinsonism type (CMS/HCC V24, CMS/HCC V28) 10/02/2024 11:05 AM EDT Ancillary Procedure [facility] [address] [facility] [address] [place] [address] 10/02/2024 10:00 AM EDT PACE Home Care / PACE Home Visit [facility] [address] [place] [phone] Merlin Forbes 10/02/2024 9:30 AM EDT Clinical Support [facility] [address] [place] [address] Nkechi Grajeda RN 10/01/2024 6:00 PM EDT PACE Home Care / PACE Home Visit [facility] [address] [place] [phone] My Phillips 10/01/2024 9:30 AM EDT PACE Home Care / PACE Home Visit [facility] [address] [place] [phone] Merlin Forbes 09/30/2024 6:00 PM EDT PACE Home Care / PACE Home Visit [facility] [address] [place] [phone] My Phillips 09/30/2024 9:30 AM EDT PACE Home Care / PACE Home Visit [facility] [address] [place] [phone] Merlin Forbes 09/28/2024 10:45 AM EDT Clinical Support [facility] [address] [place] [phone] Alexandra Arce LPN 09/27/2024 6:00 PM EDT PACE Home Care / PACE Home Visit [facility] [address] [place] [phone] My Phillips 09/27/2024 1:30 PM EDT Office Visit [facility] [address] [place] [phone] Mile Tobias, JOHNATHAN Dehydration (Primary Dx); Acute cough; Acute bronchitis, unspecified organism 09/27/2024 10:30 AM EDT Clinical Support [facility] [address] [place] [phone] Nkechi Grajeda RN 09/27/2024 9:30 AM EDT PACE Home Care / PACE Home Visit [facility] [address] [place] [phone] Merlin Forbes 09/26/2024 6:00 PM EDT PACE Home Care / PACE Home Visit [facility] [address] [place] [phone] My Phillips 09/26/2024 3:00 PM EDT PACE External Visit [facility]Y [place] [address] [place] [address] Healthcare maintenance; Type 2 diabetes mellitus with peripheral artery disease ([facility] V24, [facility] V28); Edema, lower extremity; Onychogryphosis; Onychomycosis; Callus; Xerosis of skin 09/26/2024 10:30 AM EDT PACE Home Care / PACE Home Visit [facility] [address] [place] [phone] Merlin Forbes 09/26/2024 Telephone [facility] [address] [place] [phone] Mile Tobias NP 09/25/2024 6:00 PM EDT PACE Home Care / PACE Home Visit [facility] [address] [place] [phone] My Phillips 09/25/2024 10:00 AM EDT PACE Home Care / PACE Home Visit [facility] [address] [place] [phone] Merlin Forbes 09/24/2024 6:00 PM EDT PACE Home Care / PACE Home Visit [facility] [address] [place] [phone] My Phillips 09/24/2024 10:10 AM EDT - 09/24/2024 11:59 PM EDT Hospital Encounter [facility] [address] [place] [phone] Chronic intractable headache, unspecified headache type; Tremor of both hands; Cogwheel rigidity Discharge Disposition: Home or Self Care 09/24/2024 9:30 AM EDT PACE Home Care / PACE Home Visit [facility] [address] [place] [phone] Merlin Forbes 09/23/2024 6:00 PM EDT PACE Home Care / PACE Home Visit [facility] [place] [facility] [address] [place] [address] My Phillips 09/23/2024 9:30 AM EDT PACE Home Care / PACE Home Visit [facility] [place] [facility] [address] [place] [address] Merlin Forbes 09/20/2024 6:00 PM EDT PACE Home Care / PACE Home Visit [facility] [address] [place] [phone] My Phililps 09/19/2024 6:00 PM EDT PACE Home Care / PACE Home Visit [facility] [address] [place] [phone] My Phillips 09/19/2024 10:30 AM EDT PACE Home [facility] / PACE Home Visit [facility] [address] [place] [phone] Merlin Forbes 09/19/2024 Telephone [facility] [address] [place] [phone] Audrey Baptiste RN 09/18/2024 6:00 PM EDT PACE Home Care / PACE Home Visit [facility] [address] [place] [address] My Phillips 09/18/2024 10:00 AM EDT PACE Home Care / PACE Home Visit [facility] [address] [place] [phone] Merlin Forbes 09/18/2024 Telephone [facility] [place] [facility] [address] [place] [address] Mile Tobias NP 09/17/2024 6:00 PM EDT PACE Home Care / PACE Home Visit [facility] [address] [place] [phone] My Phillips 09/17/2024 9:15 AM EDT Clinical Support [facility] [address] [place] [phone] Nkechi Grajeda, EDD 09/17/2024 8:15 AM EDT PACE Home Care / PACE Home Visit [facility] [address] [place] [phone] Merlin Forbes 09/17/2024 7:00 AM EDT Clinical Support [facility] [address] [place] [phone] Nkechi Grajeda, EDD 09/16/2024 6:00 PM EDT PACE Home Care / PACE Home Visit [facility] [address] [place] [phone] My Phillips 09/16/2024 9:30 AM EDT PACE Home Care / PACE Home Visit [facility] [address] [place] [phone] Merlin Forbes from Last 3 Months Immunizations Immunization Administration Dates Next Due Influenza, Unspecified 12/17/2023 Moderna SARS-CoV-2 COVID-19, mRNA, LNP-S, preservative free 12/24/2023,02/16/2023 Pneumococcal polysaccharide 23 valent (Pneumovax 23) 2yo and older 03/10/2024,07/30/2013 Surgical History Surgery Date Site/Laterality Comments CORONARY ARTERY BYPASS GRAFT PROCEDURE: HISTORICAL CABG DEFIBRILLATOR IMPLANT, LEFT Medical History Medical History Date Comments Anxiety DX:Anxiety Hepatitis C infection DX:Hepatit is C infection; COMMENT: cleared, neg RNA 01/05 Obesity DX:Obesity INGRID (obstructive sleep apnea) DX :INGRID (obstructive sleep apnea) Overgrown toenails DX:Overgrown toenails Anasarca DX:Anasarca CHF exacerbation ([facility] V2 4, [facility] V28) DX:CHF exacerbation (HCC) Cocaine abuse ([facility] V24, [facility] V28) DX:Cocaine abuse (HCC) Obesity DX:Obesity Presence of combination inte rnal cardiac defibrillator (ICD) and pacemaker Presence of stent in coronary artery Status post coronary artery bypass graft History of hepatitis C History of fall Trochanteric bursitis, left hip 04/09/2024 Systolic CHF, acute on chron ic ([facility] V24, [facility] V28) 04/09/2024 CHF (congestive heart failur e) ([facility] V24, [facility] V28) Family History Medical History Relation Name Comments Parkinson's Disease Brother 1 Alcohol abuse Brother 2 Alcohol abuse Brother 3 Alcohol abuse Father Other: Epilepsy Mother Relation Name Status Comments Brother 1 Alive Brother 2 Alive Brother 3 Alive Father Alive Mother Alive Social History Tobacco Use Types Packs/Day Years [...] on file Sexual Orientation Not on file Obstetrics History Last Filed Vital Signs Vital Sign Reading [...] Mass Index 42.37 12/11/2024 9:57 PM EDT Plan of Treatment Upcoming Encounters Date Type Department Care Team (Late st Contact Info) Description 12/16/2024 9:30 AM EDT PACE Home Care / PACE Home Visit [facility] [address] [place] [phone] Merlin Forbes 12/16/2024 11:00 AM EDT Office Visit [facility] [address] [place] [phone] Mile Tobias, JOHNATHAN [address] [address] 12/16/2024 6:00 PM EDT PACE Home Care / PACE Home Visit [facility] [address] [place] [phone] My Phillips 12/17/2024 7:00 AM EDT Clinical Support [facility] [address] [place] [phone] Nkechi Grajeda RN 12/17/2024 9:30 AM EDT PACE Home Care / PACE Home Visit [facility] [address] [place] [phone] Merlin Forbes 12/17/2024 11:00 AM EDT Treatment [facility] MA Occupational Therapy [address] [place] [phone] Tyler Ling OT 12/17/2024 6:00 PM EDT PACE Home Care / PACE Home Visit [facility] [address] [place] [phone] My Phillips 12/18/2024 10:00 AM EDT PACE Home Care / PACE Home Visit [facility] [address] [place] [phone] Merlin Forbes 12/18/2024 6:00 PM EDT PACE Home Care / PACE Home Visit [facility] [address] [place] [phone] My Phillips 12/19/2024 10:30 AM EDT PACE Home Care / PACE Home Visit [facility] [address] [place] [phone] Merlin Forbes 12/19/2024 6:00 PM EDT PACE Home Care / PACE Home Visit [facility] [address] [place] [phone] My Phillips 12/20/2024 9:00 AM EDT Appointment [address] [phone] 12/20/2024 9:30 AM EDT PACE Home Care / PACE Home Visit [facility] [address] [place] [phone] Merlin Forbes 12/20/2024 6:00 PM EDT PACE Home Care / PACE Home Visit [facility] [address] [place] [phone] My Phillips 12/21/2024 8:30 AM EDT PACE Home Care / PACE Home Visit [facility] [address] [place] [phone] Anabelle Valdez 12/22/2024 8:30 AM EDT PACE Home Care / PACE Home Visit [facility] [address] [place] [phone] Anabelle Valdez 12/23/2024 9:30 AM EDT PACE Home Care / PACE Home Visit [facility] [address] [place] [phone] Merlin Forbes 12/23/2024 6:00 PM EDT PACE Home Care / PACE Home Visit [facility] [address] [place] [phone] My Phillips 12/24/2024 7:00 AM EDT Clinical Support [facility] [address] [place] [address] Nkechi Grajeda RN 12/24/2024 9:30 AM EDT PACE Home Care / PACE Home Visit [facility] [address] [place] [phone] Merlin Forbes 12/24/2024 6:00 PM EDT PACE Home Care / PACE Home Visit [facility] [address] [place] [phone] My Phillips 12/25/2024 10:00 AM EDT PACE Home Care / PACE Home Visit [facility] [address] [place] [phone] Merlin Forbes 12/25/2024 6:00 PM EDT PACE Home Care / PACE Home Visit [facility] [address] [place] [phone] My Phillips 12/26/2024 10:40 AM EDT Clinical Support [facility] [address] [place] [address] 12/26/2024 6:00 PM EDT PACE Home Care / PACE Home Visit [facility] [address] [place] [phone] My Phillips 12/27/2024 9:30 AM EDT PACE Home Care / PACE Home Visit [facility] [address] [place] [phone] Merlin Forbes 12/27/2024 6:00 PM EDT PACE Home Care / PACE Home Visit [facility] [address] [place] [address] My Phillips 12/30/2024 9:30 AM EDT PACE Home Care / PACE Home Visit [facility] [address] [place] [address] Merlin Forbes 12/30/2024 6:00 PM EDT PACE Home Care / PACE Home Visit [facility] [address] [place] [phone] My Phillips 12/31/2024 7:00 AM EDT Clinical Support [facility] [address] [place] [phone] Nkechi Grajeda RN 12/31/2024 9:30 AM EDT PACE Home Care / PACE Home Visit [facility] [address] [place] [phone] Merlin Forbes 12/31/2024 10:00 AM EDT Ancillary Procedure [facility] - [address] [facility] [address] [place] [address] 12/31/2024 6:00 PM EDT PACE Home Care / PACE Home Visit [facility] [address] [place] [address] My Phillips 01/01/2025 10:00 AM EDT PACE Home Care / PACE Home Visit [facility] [address] [place] [phone] Merlin Forbes 01/01/2025 6:00 PM EDT PACE Home Care / PACE Home Visit [facility] [address] [place] [phone] My Phillips 01/02/2025 10:30 AM EDT PACE Home Care / PACE Home Visit [facility] [address] [place] [phone] Merlin Forbes 01/02/2025 3:00 PM EDT Clinical Support [facility] [place] [address] [place] [phone] 01/02/2025 6:00 PM EDT PACE Home Care / PACE Home Visit [facility] [address] [place] [phone] My Phillips 01/03/2025 9:30 AM EDT PACE Home Care / PACE Home Visit [facility] [address] [place] [phone] Merlin Forbes 01/03/2025 6:00 PM EDT PACE Home Care / PACE Home Visit [facility] [address] [place] [phone] My Phillips 01/04/2025 8:30 AM EDT PACE Home Care / PACE Home Visit [facility] [address] [place] [phone] Anabelle Valdez 01/05/2025 8:30 AM EDT PACE Home Care / PACE Home Visit [facility] [address] [place] [phone] Anabelle Valdez 01/06/2025 9:30 AM EDT PACE Home Care / PACE Home Visit [facility] [address] [place] [phone] Merlin Forbes 01/06/2025 6:00 PM EDT PACE Home Care / PACE Home Visit [facility] [address] [place] [phone] My Phillips 01/07/2025 7:00 AM EDT [facility] [address] [place] [address] Nkechi Grajeda, EDD 01/07/2025 8:15 AM EDT Clinical [facility] [address] [place] [phone] Nkechi Grajeda, RN 01/07/2025 9:30 AM EDT P[facility] Home [facility] / [facility] [address] [place] [phone] Merlin Forbes 01/07/2025 6:00 PM EDT P[facility] Home [facility] / [facility] [address] [place] [phone] My Phillips 01/08/2025 10:00 AM EDT P[facility] Home [facility] / [facility] Visit [facility] [address] [place] [phone] Merlin Forbes 01/08/2025 6:00 PM EDT PACE Home Care / [facility] Home Visit [facility] [address] [place] [phone] My Phillips 01/09/2025 10:30 AM EDT PACE Home Care / [facility] Home Visit [facility] [address] [place] [phone] Merlin Forbes 01/09/2025 6:00 PM EDT PACE Home Care / [facility] Visit [facility] [address] [place] [phone] yM Phillips 01/10/2025 9:30 AM EDT P[facility] Home [facility] / [facility] Home Visit [facility] [address] [place] [phone] Merlin Forbes 01/10/2025 10:00 AM EDT Clinical Support [facility] [address] [place] [address] 01/10/2025 6:00 PM EDT PACE Home Care / [facility]ACE Home Visit [facility] [address] [place] [phone] My Phillips 01/13/2025 9:30 AM EDT PACE Home Care / [facility] Home Visit [facility] [address] [place] [phone] Merlin Forbes 01/13/2025 6:00 PM EDT PACE Home Care / [facility] [address] [place] [phone] My Phillips 01/14/2025 7:00 AM EDT Clinical [facility] [address] [place] [phone] Nkechi Grajeda RN 01/14/2025 9:30 AM EDT PACE Home Care / [facility] [address] [place] [phone] Merlin Forbes 01/14/2025 6:00 PM EDT PACE Home Care / [facility] Home Visit [facility] [address] [place] [phone] My Phillips 01/15/2025 10:00 AM EDT PACE Home Care / [facility] Visit [facility] [address] [place] [phone] Merlin Forbes 01/15/2025 6:00 PM EDT PACE Home Care / [facility] Visit [facility] [address] [place] [phone] My Phillips 01/16/2025 10:30 AM EDT PACE Home Care / [facility] Visit [facility] [address] [place] [address] Merlin Forbes 01/16/2025 6:00 PM EDT PACE Home Care / [facility] Home Visit [facility] [address] [place] [phone] My Phillips 01/17/2025 9:30 AM EDT PACE Home Care / P[facility] Home Visit [facility] [address] [place] [phone] Merlin Forbes 01/17/2025 6:00 PM EDT PACE Home Care / [facility] Home Visit [facility] [address] [place] [phone] My Phillips 01/18/2025 8:30 AM EDT PACE Home Care / [facility] Visit [facility] [address] [place] [phone] Anabelle Valdez 01/19/2025 8:30 AM EST [facility] Home [facility] / [facility] Home Visit [facility] [address] [place] [phone] Anabelle Valdez 01/20/2025 9:30 AM EST P[facility] Home Care / [facility] Home Visit [facility] [address] [place] [phone] Merlin Forbes 01/20/2025 6:00 PM EST P[facility] Home Care / PACE Home Visit [facility] [address] [place] [phone] My Phillips 01/21/2025 7:00 AM EST Clinical Support [facility] [address] [place] [phone] Nkechi Grajeda RN 01/21/2025 9:30 AM EST PACE Home Care / [facility]ACE Home Visit [facility] [address] [place] [phone] Merlin Forbes 01/21/2025 10:45 AM EST Clinical Support [facility] [address] [place] [phone] 01/21/2025 6:00 PM EST PACE Home Care / PACE Home Visit [facility] [address] [place] [phone] My Phillips 01/22/2025 10:00 AM EST PACE Home Care / PACE Home Visit [facility] [address] [place] [phone] Merlin Forbes 01/22/2025 6:00 PM EST PACE Home Care / PACE Home Visit [facility] [address] [place] [phone] My Phillips 01/23/2025 10:30 AM EST PACE Home Care / [facility] Home Visit [facility] [address] [place] [phone] Merlin Forbes 01/23/2025 6:00 PM EST PACE Home Care / PACE Home Visit [facility] [address] [place] [phone] My Phillips 01/24/2025 9:30 AM EST PACE Home Care / [facility] Home Visit [facility] [address] [place] [phone] Merlin Forbes 01/24/2025 6:00 PM EST PACE Home Care / PACE Home Visit [facility] [address] [place] [phone] My Phillips 01/27/2025 9:30 AM EST P[facility] Home Care / PACE Home Visit [facility] [address] [place] [address] Merlin Forbes 01/27/2025 6:00 PM EST P[facility] Home [facility] / [facility] Home Visit [facility] [address] [place] [address] My Phillips 01/28/2025 7:00 AM EST Clinical Support [facility] [address] [place] [address] Nkechi Grajeda RN 01/28/2025 9:30 AM EST P[facility] Home Care / [facility] Home Visit [facility] [address] [place] [address] Merlin Forbes 01/28/2025 6:00 PM EST PACE Home Care / PACE Home Visit [facility] [address] [place] [phone] My Phillips 01/29/2025 10:00 AM EST PACE Home Care / [facility] Home Visit [facility] [address] [place] [phone] Merlin Forbes 01/29/2025 6:00 PM EST [facility] Home [facility] / [facility] [address] [place] [address] My Phillips 01/30/2025 10:30 AM EST PACE Home Care / [facility] [address] [place] [address] Merlin Forbes 01/30/2025 6:00 PM EST P[facility] Home Care / [facility] [address] [place] [address] My Phillips 01/31/2025 9:30 AM EST P[facility] Home Care / [facility] Home Visit [facility] [address] [place] [phone] Merlin Forbes 01/31/2025 11:00 AM EST PACE External Visit [facility] [address] [place] [address] 01/31/2025 6:00 PM EST [facility] Home Care / [facility] [address] [place] [address] My Phillips 02/01/2025 8:30 AM EST PACE Home Care / P[facility] Home Visit [facility] [address] [place] [phone] Anabelle Valdez 02/02/2025 8:30 AM EST PACE Home Care / [facility] Home Visit [facility] [address] [place] [phone] Anabelle Valdez 02/03/2025 9:30 AM EST P[facility] Home Care / [facility] Home Visit [facility] [address] [place] [phone] Merlin Forbes 02/03/2025 6:00 PM EST P[facility] Home Care / P[facility] Home Visit [facility] [address] [place] [phone] My Phillips 02/04/2025 7:00 AM EST [facility] Support [facility] [address] [place] [address] Nkechi Grajeda RN 02/04/2025 8:15 AM EST Clinical Support [facility] [address] [place] [address] Nkechi Grajeda RN 02/04/2025 9:30 AM EST [facility] Home [facility] / [facility] [address] [place] [phone] Merlin Forbes 02/04/2025 6:00 PM EST [facility] Home [facility] / [facility] [address] [place] [phone] My Phillips 02/05/2025 10:00 AM EST [facility] Home [facility] / [facility] [address] [place] [phone] Merlin Forbes 02/05/2025 6:00 PM EST [facility] Home [facility] / [facility] [address] [place] [phone] My Phillips 02/06/2025 10:30 AM EST [facility] Home [facility] / [facility] [address] [place] [phone] Merlin Forbes 02/06/2025 6:00 PM EST [facility] Home [facility] / [facility] [address] [place] [phone] My Phillips 02/07/2025 9:30 AM EST P[facility] Home [facility] / [facility] [address] [place] [phone] Merlin Forbes 02/07/2025 6:00 PM EST [facility] Home [facility] / [facility] [address] [place] [phone] My Phillips 02/10/2025 9:30 AM EST [facility] Home [facility] / [facility] [address] [place] [phone] Merlin Forbes 02/10/2025 6:00 PM EST PACE Home Care / [facility] Home Visit [facility] [address] [place] [address] My Phillips 02/11/2025 7:00 AM EST Clinical Support [facility] [address] [place] [address] Nkechi Grajeda RN 02/11/2025 9:30 AM EST PACE Home Care / [facility] [address] [place] [address] Merlin Forbes 02/11/2025 6:00 PM EST PACE Home Care / [facility] Home Visit [facility] [address] [place] [phone] My Phillips 02/12/2025 10:00 AM EST P[facility] Home Care / [facility] [address] [place] [phone] Merlin Forbes 02/12/2025 6:00 PM EST PACE Home Care / [facility] Home Visit [facility] [address] [place] [phone] My Phillips 02/13/2025 10:30 AM EST PACE Home Care / [facility] [address] [place] [address] Merlin Forbes 02/13/2025 6:00 PM EST P[facility] Home Care / [facility] [address] [place] [address] My Phillips 02/18/2025 7:00 AM EST Clinical Support [facility] [address] [place] [address] Nkechi Grajeda, EDD 02/25/2025 7:00 AM EST Clinical Support [facility] [place] [facility] [address] [phone] Nkechi Grajeda, EDD 02/27/2025 10:40 AM EST Clinical Support [facility] [address] [place] [phone] 03/04/2025 7:00 AM EST Clinical Support [facility] [place] [facility] [address] [phone] Nkechi Grajeda, EDD 03/04/2025 8:15 AM EST Clinical Support [facility] [place] [facility] [address] [phone] Nkechi Grajeda, EDD 03/11/2025 7:00 AM EST Clinical Support [facility] [place] [facility] [address] [phone] Nkechi Grajeda, EDD 03/18/2025 7:00 AM EST Clinical Support [facility] [place] [facility] [address] [phone] Nkechi Grajeda, EDD 03/25/2025 7:00 AM EST Clinical Support [facility] [address] [place] [phone] Nkechi Grajeda, EDD 04/01/2025 7:00 AM EST Clinical Support [facility] [address] [place] [phone] Nkechi Grajeda, EDD 04/01/2025 8:15 AM EST Clinical Support [facility] [address] [place] [phone] Nkechi Grajeda, EDD 04/08/2025 7:00 AM EST Clinical Support [facility] [address] [place] [phone] Nkechi Grajeda, EDD 04/14/2025 9:25 AM EST Office Visit [facility] [address] [place] [phone] Dillon Mendosa MD [address] [place] [address] [place] [phone] 04/15/2025 7:00 AM EST Clinical Support [facility] [place] [facility] [address] [phone] Nkechi Grajeda RN 04/22/2025 7:00 AM EST Clinical Support [facility] [place] [facility] [address] [phone] Nkechi Grajeda, EDD 04/29/2025 7:00 AM EST Clinical Support [facility] [place] [facility] [address] [phone] Nkechi Grajeda, EDD 04/29/2025 8:15 AM EST Clinical Support [facility] [place] [facility] [address] [phone] Nkechi Grajeda, EDD 05/06/2025 7:00 AM EST Clinical Support [facility] [place] [facility] [address] [phone] Nkechi Grajeda, EDD 05/13/2025 7:00 AM EST Clinical Support [facility] [place] [facility] [address] [phone] Nkechi Grajeda RN 05/20/2025 7:00 AM EST Clinical Support [facility] [address] [place] [phone] Nkechi Grajeda, EDD 05/27/2025 7:00 AM EDT Clinical Support [facility] [address] [place] [phone] Nkechi Grajeda, EDD 05/27/2025 8:15 AM EDT Clinical Support [facility] [address] [place] [phone] Nkechi Grajeda, EDD 06/03/2025 7:00 AM EDT Clinical Support [facility] [address] [place] [phone] Nkechi Grajeda, EDD 06/10/2025 7:00 AM EDT Clinical Support [facility] [address] [place] [phone] Nkechi Grajeda, EDD 06/17/2025 7:00 AM EDT Clinical Support [facility] [address] [place] [phone] Nkechi Grajeda, EDD 06/24/2025 7:00 AM EDT Clinical Support [facility] [address] [place] [phone] Nkechi Grajeda, EDD 06/24/2025 8:15 AM EDT Clinical Support [facility] [address] [place] [phone] Nkechi Grajeda, RN 07/01/2025 7:00 AM EDT Clinical Support [facility] [address] [place] [phone] Nkechi Grajeda, EDD 07/08/2025 7:00 AM EDT Clinical Support [facility] [address] [place] [phone] Nkechi Grajeda, EDD 07/15/2025 7:00 AM EDT Clinical Support [facility] [address] [place] [phone] Nkechi Grajeda, RN 07/22/2025 8:15 AM EDT Clinical Support [facility] [address] [place] [phone] Nkechi Grajeda, RN 08/19/2025 8:15 AM EDT Clinical Support [facility] [address] [phone] Nkechi Grajeda RN 09/16/2025 8:15 AM EDT Clinical Support [facility] [address] [phone] Nkechi Grajeda RN 10/14/2025 8:15 AM EDT [facility] [address] [phone] Nkechi Grajeda RN 11/11/2025 8:15 AM EDT [facility] [address] [phone] Nkechi Grajeda RN 12/09/2025 8:15 AM EDT [facility] [address] [phone] kNechi Grajeda, EDD Health Maintenance Due Date Last Done Comments Colorectal Cancer Screening: Colonoscopy 1959 Diabetes: Annual Foot Exam 10/05/1969 Diabetes: Annual Retina Eye Exam 10/05/1969 DTaP,Tdap,and Td Vaccines (1 - Tdap) 10/05/1978 Hepatitis A Vaccines (1 of 2 - Risk 2-dose series) 10/05/1978 Zoster Vaccines (1 of 2) 10/05/2009 Hepatitis B Vaccines (1 of 3 - Risk 3-dose series) 2019 RSV Immunization Adult Patients (1 - Risk 60-74 years 1-dose series) 2019 COVID-19 Vaccine ( season) 2024 12/24/2023, 02/16/2023, 08/18/2020, Additional history exists Influenza Vaccine (#1) 2024 , 12/21/2018, 01/20/2014, Additional history exists Abdominal Aortic Aneurysm (AAA) Screen 12/01/2024 Hepatitis C Screening 12/01/2024 Social Influencers of Health Screening 12/01/2024 Pneumococcal Vaccine: 50+ Years (2 of 2 - PCV) 03/10/2025 03/10/2024, 07/30/2013 Diabetes: Blood Sugar Control Test (HGBA1C) 06/10/2025 12/11/2024, 06/27/2024, 12/01/2023 Diabetes: Annual Urine Albumin-Creatinine Ratio (uACR) 06/27/2025 06/27/2024 Falls Risk Assessment 12/12/2025 12/12/2024 Diabetes: Annual GFR (Glomerular Filtration Rate) 12/13/2025 12/13/2024, 12/12/2024, 12/11/2024, Additional history exists Hypertension/CHF/CAD Annual BMP Blood Test 12/13/2025 12/13/2024, 12/12/2024, 12/11/2024, Additional history exists Cholesterol Screening (Lipid Panel) 06/27/2029 06/27/2024, 06/19/2023 Depression Screening Completed 12/11/2024 HIB Vaccines Aged Out No longer eligi ble based on patient's age to complete this topic HPV Vaccines Aged Out No longer eligi ble based on patient's age to complete this topic IPV Vaccines Aged Out No longer eligi ble based on patient's age to complete this topic MMR Vaccines Aged Out No longer eligi ble based on patient's age to complete this topic Meningococcal ACWY Vaccine Aged Out N o longer eligible based on patient's age to complete this topic Meningococcal B Vaccine Aged Out No l onger eligible based on patient's age to complete this topic RSV Immunization Patients Under 20 months Aged Out No longer eligible based on patient's age to complete this topic Varicella Vaccines Aged Out No longer eligible based on patient's age to complete this topic Medical Devices Implanted Type Area Trimming Department Blocker Device Identifier Shelf Expiration Date Model / Serial / Lot Cardiac Icd Cardiac ICD Left: Chest Wall [employer] Biot-Manu Acticor 7 Vr-T Dx [id number] Implanted: (Quantity not on file) Cardiac ICD N/A: Heart [employer] ACTICOR 7 VR-T DX / [id number] / Procedures Procedure Name Priority Date/Time Associated Diagnosis Comments LAVENDER - EDTA Routine 12/13/2024 6:32 AM EDT EXTRA TUBES Routine 12/13/2024 6:32 AM EDT MAGNESIUM Routine 12/13/2024 6:32 AM EDT BASIC METABOLIC PANEL Routine 12/13/2024 6:32 AM EDT ECG ANNOTATED 12/13/2024 POCT GLUCOSE BLOOD Routine 12/12/2024 4: 07 PM EDT XR CHEST 2 VIEWS Routine 12/12/2024 2:11 PM EDT POCT GLUCOSE BLOOD Routine 12/12/2024 11 :45 AM EDT OSMOLALITY STAT Add-on 12/12/2024 5:58 AM EDT CBC WITH AUTO DIFFERENTIAL Routine 12/12/2024 5:58 AM EDT CBC AND DIFFERENTIAL Routine 12/12/2024 5:58 AM EDT BASIC METABOLIC PANEL Routine 12/12/2024 5:58 AM EDT XR CHEST 1 VIEW STAT 12/12/2024 4:[address] HEAD WO CONTRAST STAT 12/12/2024 2 :55 AM EDT OSMOLALITY, URINE Add-On 12/12/2024 2:4 8 AM EDT SODIUM, URINE, RANDOM STAT Add-on 12/12/2024 2:48 AM EDT DRUG ABUSE SCREEN 8A PANEL, URINE Routine 12/12/2024 2:48 AM EDT LACTATE, WITH REFLEX STAT 12/12/2024 2:48 AM EDT CULTURE BLOOD STAT 12/12/2024 2:48 AM EDT CULTURE BLOOD STAT 12/12/2024 2:48 AM EDT TROPONIN I HIGH SENSITIVITY Timed 12/12/2024 1:45 AM EDT OSMOLALITY STAT Add-on 12/11/2024 10:52 PM EDT C-REACTIVE PROTEIN Add-On 12/11/2024 10 :52 PM EDT ETHANOL STAT Add-on 12/11/2024 10:52 PM EDT HEMOGLOBIN A1C Add-On 12/11/2024 10:52 PM EDT CBC WITH AUTO DIFFERENTIAL STAT 12/11/2024 10:52 PM EDT B-TYPE NATRIURETIC PEPTIDE STAT 12/11/2024 10:52 PM EDT MAGNESIUM STAT 12/11/2024 10:52 PM EDT LIPASE STAT 12/11/2024 10:52 PM EDT COMPREHENSIVE METABOLIC PANEL STAT 12/11/2024 10:52 PM EDT CBC AND DIFFERENTIAL STAT 12/11/2024 10:52 PM EDT TROPONIN I HIGH SENSITIVITY Timed 12/11/2024 10:52 PM EDT ECG 12-LEAD STAT 12/11/2024 10:47 PM EDT CARDIAC DEVICE CHECK- REMOTE- MURJ Routine 12/03/2024 11:49 AM EDT B-TYPE NATRIURETIC PEPTIDE Routine 12/03/2024 10:11 AM EDT Adult general medical examination DRUG ABUSE SCREEN EXPANDED WITH REFLEX CONFIRMATION, URINE Routine 12/03/2024 10:07 AM EDT Adult general medical examination Polysubstance abuse (CMS/HCC V24, CMS/HCC V28) Alcohol abuse, episodic Follow-up treatment Cocaine abuse in remission (CMS/HCC V24, CMS/HCC V28) COMPREHENSIVE METABOLIC PANEL Routine 12/03/2024 10:07 AM EDT Adult general medical examination CBC WITH AUTO DIFFERENTIAL Routine 12/03/2024 10:07 AM EDT Adult general medical examination CBC AND DIFFERENTIAL Routine 12/03/2024 10:07 AM EDT Adult general medical examination ECG ANNOTATED 12/02/2024 TROPONIN I HIGH SENSITIVITY Timed 12/01/2024 10:17 PM EDT ECG 12-LEAD STAT 12/01/2024 9:38 PM EDT XR CHEST 1 VIEW STAT 12/01/2024 9:37 PM EDT CBC WITH AUTO DIFFERENTIAL STAT 12/01/2024 9:24 PM EDT TROPONIN I HIGH SENSITIVITY Timed 12/01/2024 9:24 PM EDT B-TYPE NATRIURETIC PEPTIDE STAT 12/01/2024 9:24 PM EDT BASIC METABOLIC PANEL STAT 12/01/2024 9:24 PM EDT CBC AND DIFFERENTIAL STAT 12/01/2024 9:24 PM EDT C REACTIVE PROTEIN, HIGH SENSITIVITY STAT 11/18/2024 10:17 AM EDT Shortness of breath Candidiasis of skin Plantar fasciitis CBC WITH AUTO DIFFERENTIAL STAT 11/18/2024 10:17 AM EDT Shortness of breath Candidiasis of skin Plantar fasciitis CBC AND DIFFERENTIAL STAT 11/18/2024 10:17 AM EDT Shortness of breath Candidiasis of skin Plantar fasciitis URIC ACID STAT 11/18/2024 10:17 AM EDT Shortness of breath Candidiasis of skin Plantar fasciitis CARDIAC DEVICE CHECK- REMOTE- MURJ Routine 10/30/2024 10:28 PM EDT ECG ANNOTATED 10/14/2024 XR CHEST 2 VIEWS STAT 10/11/2024 4:10 AM EDT TROPONIN I HIGH SENSITIVITY STAT 10/11/2024 3:53 AM EDT MAGNESIUM STAT Add-on 10/11/2024 3:49 AM EDT LIPASE STAT Add-on 10/11/2024 3:49 AM EDT CBC WITH AUTO DIFFERENTIAL STAT 10/11/2024 3:49 AM EDT B-TYPE NATRIURETIC PEPTIDE STAT 10/11/2024 3:49 AM EDT BASIC METABOLIC PANEL STAT 10/11/2024 3:49 AM EDT CBC AND DIFFERENTIAL STAT 10/11/2024 3:49 AM EDT ECG 12-LEAD STAT 10/11/2024 3:26 AM EDT CARDIAC DEVICE CHECK- REMOTE- MURJ Routine 10/02/2024 11:03 AM EDT COMPREHENSIVE METABOLIC PANEL Routine 09/27/2024 2:36 PM EDT Episodic tension-type headache, not intractable CBC WITH AUTO DIFFERENTIAL Routine 09/27/2024 2:36 PM EDT Episodic tension-type headache, not intractable CBC AND DIFFERENTIAL Routine 09/27/2024 2:36 PM EDT Episodic tension-type headache, not intractable MR BRAIN WO CONTRAST Routine 09/24/2024 11:24 AM EDT Chronic intractable headache, unspecified headache type Tremor of both hands Cogwheel rigidity MICROALBUMIN CREATININE URINE RATIO Routine 06/27/2024 10:14 AM EDT Type 2 diabetes mellitus with hyperglycemia, without long-term current use of insulin ([facility] V24, [facility] V28) LIPID PANEL WITH REFLEX TO DIRECT LDL Routine 06/27/2024 10:14 AM EDT Dyslipidemia from Last 3 Months or Most Recently Relevant to Health Maintenance Results * Lavender tube (12/13/2024 6:32 AM EDT) Pathologist [facility] Extra Tube Hold for add-ons. 12/13/2024 9:[address] [facility] Comment:Auto resulted. Blood Venous blood specimen / Unknown 12/13/2024 6:32 AM EDT 12/13/2024 7:34 AM EDT Jaren Bentley MD LAB BLOOD ORDERABLE S Final Result Performing Organization Address City/[facility]/ZIP Co de Phone Number [facility] [address] [place] [address], [place] [phone] * Magnesium (12/13/2024 6:32 AM EDT) Only the most recent of3 resultswithin the time period is included. [facility] Magnesium 2.6 1.9 - 2.6 mg/dL LAB CHEMISTRY METHOD 12/13/2024 8:[address] [facility] Blood Venous blood specimen / Unknown Venipuncture / Unknown 12/13/2024 6:32 AM EDT 12/13/2024 7:32 AM EDT Radu ANDUJAR LAB BLOOD ORDERABLES Merle l Result [facility] [address] [place] [address], [place] [phone] * (ABNORMAL) Basic metabolic panel (12/13/2024 6:32 AM EDT) Only the most recent of4 resultswithin the time period is included. Sodium 133 133 - 145 mmol/L LAB CHEMISTRY METHOD 12/13/2024 8:24 AM [facility] Potassium 3.4(L) 3.5 - 5.5 mmol/L LAB CHEMISTRY METHOD 12/13/2024 8:24 AM [facility] Chloride 89(L) 96 - 110 mmol/L LAB CHEMISTRY METHOD 12/13/2024 8:24 AM [facility] CO2 37(H) 21 - 32 mmol/L LAB CHEMISTRY METHOD 12/13/2024 8:24 AM [facility] Anion Gap 7 3 - 11 LAB CHEMISTRY METHOD 12/13/2024 8:24 AM [facility] Glucose 169(H) 70 - 100 mg/dL LAB CHEMISTRY METHOD 12/13/2024 8:24 AM [facility] BUN 33(H) 5 - 25 mg/dL LAB CHEMISTRY METHOD 12/13/2024 8:24 AM [facility] Creatinine 1.58(H) 0.70 - 1.30 mg/dL LAB CHEMISTRY METHOD 12/13/2024 8:24 AM [facility] eGFR 48(L) >=60 mL/min/1. 73m2 LAB CHEMISTRY METHOD 12/13/2024 8:24 AM [facility] Comment:Calculation based on the Chronic Kidney Disease Epidemiology Collaboration (CKD-EPI) equation refit without adjustment for race. BUN/Creatinine Ratio 20.9 LAB CHEMISTRY METHOD 12/13/2024 8:24 AM [facility] Calcium 9.7 8.5 - 10.5 mg/dL LAB CHEMISTRY METHOD 12/13/2024 8:24 AM [facility] Blood Venous blood specimen / Unknown Venipuncture / Unknown 12/13/2024 6:32 AM EDT 12/13/2024 7:32 AM EDT Radu ANDUJAR LAB BLOOD ORDERABLES Merle l Result Performing Organization Address [facility]/ZIP Co de Phone Number [facility] [address] [place] [address], [place] [phone] * ECG-Annotated (12/13/2024) Only the most recent of3 resultswithin the time period is included. Provider Onbase MD ECG ORDERABLES Final Result * (ABNORMAL) POCT Glucose, blood (12/12/2024 4:07 PM EDT) Only the most recent of2 resultswithin the time period is included. [facility] Glucose POCT 247(H) 70 - 100 mg/dL 12/12/2024 4:[address] [facility] Blood Capillary blood specimen / Unknown 12/12/2024 4:07 PM EDT 12/12/2024 4:09 PM EDT Jaren Bentley MD LAB POINT O F CARE TEST DOCKED DEVICE UNSOLICITED RESULTS Final Result Performing Organization Address [facility] Co de Phone Number [facility] [address] [place] [address], [place] [phone] * XR Chest 2 Views (12/12/2024 2:11 PM EDT) Only the most recent of2 resultswithin the time period is included. Anatomical Region Laterality Modality Body Radiographic Anna ging 12/13/2024 11:3 9 AM EDT Impressions 12/13/2024 11:42 AM EDT No acute pulmonary disease. The area of atelectasis and/or infiltrate in the left lower lobe suspected on the prior study 9 hours 29 minutes earlier has resolved. Code 68745 -------- FINAL REPORT -------- Dictated By: Donavon Davis Dictated Date: 12/13/2024 11:39 ET Assigned Physician: Donavon Davis Reviewed and Electronically Signed By: Donavon Davis Signed Date: 12/13/2024 11:42 ET Workstation ID: [id number] Transcribed By: Self Edit Transcribed Date: 12/13/2024 11:39 ET Narrative 12/13/2024 11:42 AM EDT HISTORY: The patient is a 64-year-old male with possible increased density in the left lower lobe on prior chest radiograph performed earlier the day, presenting for follow-up. FINDINGS: PA and [...] 9 hours 29 minutesearlier has resolved. Code 70830 -------- FINAL REPORT -------- Dictated By: Donavon Davis Dictated Date: 12/13/2024 11:39 ET Assigned Physician: Donavon Davis Reviewed and Electronically Signed By: Donavon Davis Signed Date: 12/13/2024 11:42 ET Workstation ID: [id number] Transcribed By: Self Edit Transcribed Date: 12/13/2024 11:39 ET Radu ANDUJAR IMG XR PROCEDURES Final R esult * (ABNORMAL) CBC auto differential (12/12/2024 5:58 AM EDT) Only the most recent of7 resultswithin the time period is included. WBC 9.2 4.8 - 10.8 K/mcL LAB [facility] RBC 6.00(H) 4.50 - 5.50 M/mcL LAB HEMETOLOGY METHOD [facility]/12[facility]24 [facility] Hemoglobin 16.2 13.5 - 17.5 g/dL LAB HEMETOLOGY METHOD 12/12/2024 6:34 AM [facility] Hematocrit 50.8 42.0 - 54.0 % LAB HEMETOLOGY METHOD 12/12/2024 6[facility] MCV 84.2 79.0 - 98.0 FL LAB HEMETOLOGY METHOD 12/12/2024 6:34 AM [facility] MCH 26.9(L) 27.0 - 32.0 pcg LAB HEMETOLOGY METHOD 12/12/2024 6:34 AM [facility] MCHC 31.9(L) 32.0 - 37.0 g/dL LAB HEMETOLOGY METHOD 12/12/2024 6:34 AM [facility] RDW 13.8 11.0 - 15.0 % LAB HEMETOLOGY METHOD 12/12/2024 6:[facility] Platelets 165 130 - 400 K/mcL LAB HEMETOLOGY METHOD 12/12/2024 6:34 AM [facility] MPV 10.6 7.0 - 11.0 FL LAB HEMETOLOGY METHOD 12/12/2024 6:34 AM [facility] NRBC 0.0 <1.0 % LAB HEMETOLOGY METHOD 12/12/2024 6:34 AM [facility] NRBC Absolute 0.00 <0.10 K/mcL LAB HEMETOLOGY METHOD 12/12/2024 6:34 AM [facility] Neutrophils Relative 61.4 % LAB HEMETOLOGY METHOD 12/12/2024 6:34 AM [facility] Lymphocytes Relative 26.4 % LAB HEMETOLOGY METHOD 12/12/2024 6:34 AM [facility] Monocytes Relative 10.3 % LAB HEMETOLOGY METHOD 12/12/2024 6:34 AM [facility] Eosinophils Relative 1.2 % LAB HEMETOLOGY METHOD 12/12/2024 6:34 AM [facility] Basophils Relative 0.3 % LAB HEMETOLOGY METHOD 12/12/2024 6:34 AM [facility] Immature Granulocytes Relative 0.4 % LAB HEMETOLOGY METHOD 12/12/2024 6:34 AM [facility] Neutrophils Absolute 5.66 1.50 - 7.00 K/mcL LAB HEMETOLOGY METHOD 12/12/2024 6:34 AM [facility] Lymphocytes Absolute 2.43 1.00 - 5.00 K/mcL LAB HEMETOLOGY METHOD 12/12/2024 6:34 AM [facility] Monocytes Absolute 0.95 0.20 - 1.00 K/mcL LAB HEMETOLOGY METHOD 12/12/2024 6:34 AM [facility] Eosinophils Absolute 0.11 0.00 - 0.50 K/mcL LAB HEMETOLOGY METHOD 12/12/2024 6:34 AM [facility] Basophils Absolute 0.03 0.00 - 0.20 K/mcL LAB HEMETOLOGY METHOD 12/12/2024 6:[address] [facility] Immature Granulocytes Absolute 0.04(H) 0.00 - 0.03 K/mcL LAB HEMETOLOGY METHOD 12/12/2024 6:[address] [facility] Blood Venous blood specimen / Unknown Venipuncture / Unknown 12/12/2024 5:58 AM EDT 12/12/2024 6:17 AM EDT Batsheva Madrigal PA LAB BLOOD ORDERABLES Final Re sult Performing Organization Address [facility]/ZIP Co de Phone Number [facility] [address] [place] [address], [place] [phone] * Osmolality (12/12/2024 5:58 AM EDT) Only the most recent of2 resultswithin the time period is included. Osmolality Bharathi 286 280 - 300 mOsm/kg LAB CHEMISTRY METHOD 12/12/2024 9:[address] [facility] Blood Venous blood specimen / Unknown Venipuncture / Unknown 12/12/2024 5:58 AM EDT 12/12/2024 6:17 AM EDT Radu ANDUJAR LAB BLOOD ORDERABLES Merle l Result Performing Organization Address [facility]/ZIP Co de Phone Number [facility] [address] [place] [address], [place] [phone] * XR Chest 1 View (12/12/2024 4:30 AM EDT) Only the most recent of2 resultswithin the time period is included. Anatomical Region Laterality Modality Body Radiographic Anna ging 12/12/2024 9:06 AM EDT Impressions 12/12/2024 9:08 AM EDT Hypoinflated lung brady without definite infiltrates or effusions. -------- FINAL REPORT -------- Dictated By: Marie Ring Dictated Date: 12/12/2024 09:06 ET Assigned Physician: Marie Ring Reviewed and Electronically Signed By: Marie Ring Signed Date: 12/12/2024 09:08 ET Workstation ID: [id number] Transcribed By: Self Edit Transcribed Date: 12/12/2024 [...] for the patient's age. IMPRESSION: Hypoinflated lung brady without definite infiltrates or effusions. -------- FINAL REPORT -------- Dictated By: Marie Ring Dictated Date: 12/12/2024 09:06 ET Assigned Physician: Marie Ring Reviewed and Electronically Signed By: Marie Ring Signed Date: 12/12/2024 09:08 ET Workstation ID: [id number] Transcribed By: Self Edit Transcribed Date: 12/12/2024 09:06 ET us Tyler Ortiz MD IMG XR PROCEDURES Final Res [...] unknown cause CT head without contrast Comparison: CT/AR/SR - BRAIN C- CT - 05/10/23 11:16 EST Findings: No intracranial mass, midline shift, hydrocephalus, or acute hemorrhage. Moderate/advanced changes of chronic microvascular ischemic disease with age related global parenchymal volume loss. Mucosal thickening of the ethmoid sinuses. The orbits are unremarkable. No skull fracture. Procedure Note Geoff Belcher MD - 12/12/2024 INDICATION: Mental status change, unknown cause CT head without contrast Comparison: CT/AR/SR - BRAIN C- CT - 05/10/23 11:16 [...] Belcher DO on 12/12/2024 03:32:31 Alyssa Blancas NP IM CT PROCEDURES Final R esult * Lactate, with reflex (12/12/2024 2:48 AM EDT) LACTIC ACID 1.4 0.4 - 2.0 mmol/L LAB CHEMISTRY METHOD [facility] Blood Venous blood specimen / Unknown Venipuncture / Unknown 12/12/2024 2:48 AM EDT 12/12/2024 2:53 AM EDT us Alyssa Blancas NP LAB BLOOD ORDERABLES Merle l Result [facility] [address] [place] [address], [place] [phone] * (ABNORMAL) Drug abuse screen 8a panel, urine (12/12/2024 2:48 AM EDT) Amphetamine Screen, Ur Negative Negative LAB CHEMISTRY METHOD 3:21 AM [facility] Comment:Certain OTC medicati ons containing ephedrine, phenylephrine, pseudoephedrine and phenylpropanolamine can cause false positive results. Barbiturate Screen, Ur Negative Negative LAB CHEMISTRY METHOD 5 3:21 AM [facility] Benzodiazepine Screen, Ur Negative Negative LAB CHEMISTRY METHOD 3:21 AM [facility] Cocaine Screen, Ur Positive(A ) Negative LAB CHEMISTRY METHOD 5 3:21 AM [facility] Opiate Screen, Ur Negative Negative LAB CHEMISTRY METHOD 3:21 AM [facility] Cannabinoid (THC) Screen, Ur Positive(A ) Negative LAB CHEMISTRY METHOD 3:21 AM [facility] Comment:Specimens from patie nts taking pantoprazole sodium (Protonix) have been shown to produce false positive results. Oxycodone Screen, Ur Negative Negative LAB CHEMISTRY METHOD 5 3:21 AM [facility] Fentanyl, Ur Negative Negative LAB CHEMISTRY METHOD 5 3:21 AM [facility] Urine Urine specimen obtained by clean catch procedure / Unknown Non-blood Collection / Unknown 12/12/2024 2:48 AM EDT 12/12/2024 2:[address] [facility] - 12/12/2024 3:21 AM EDT Assay cutoffs: Amphetamines 1000 ng/mL Barbiturates 200 ng/mL Benzodiazepines 200 ng/mL Cocaine 300 ng/mL Fentanyl 1 ng/mL Opiates 300 ng/mL Oxycodone 100 ng/mL THC 50 ng/mL Semi-quantitative assay for screening purposes only. Unconfirmed screening result should not be used for non-medical purposes. *ALTERNATE METHOD CONFIRMATION DONE UPON REQUEST ONLY* Tyler Ortiz MD LAB URINE ORDERABLES Final Result Performing Organization Address [facility]/ZIP Co de Phone Number [facility] [address] [place] [address], [place] [phone] * Sodium, urine, random (12/12/2024 2:48 AM EDT) Sodium, Ur 53 mmol/L LAB CHEMISTRY METHOD 12/12/2024 7:[address] [facility] Urine Urine specimen obtained by clean catch procedure / Unknown Non-blood Collection / Unknown 12/12/2024 2:48 AM EDT 12/12/2024 2:54 AM EDT Batsheva ANDUJAR LAB URINE ORDERABLES Final Re sult [facility] [address] [place] [address], [place] [phone] * Osmolality, urine (12/12/2024 2:48 AM EDT) Osmolality, Urine 460 300 - 1,300 mOsm/kg LAB CHEMISTRY METHOD 12/12/2024 8:[address] [facility] Urine Urine specimen obtained by clean catch procedure / Unknown Non-blood Collection / Unknown 12/12/2024 2:48 AM EDT 12/12/2024 2:54 AM EDT Batsheva ANDUJAR LAB URINE ORDERABLES Final Re sult Performing Organization Address [facility]/ZIP Co de Phone Number [facility] [address] [place] [address], * Troponin I high sensitivity (12/12/2024 1:45 AM EDT) Only the most recent of5 resultswithin the time period is included. [facility] High Sensitivity Troponin I 31 <=79 ng/L LAB CHEMISTRY METHOD 12/12/2024 2:[address] [facility] Blood Venous blood specimen / Unknown Venipuncture / Unknown 12/12/2024 1:45 AM EDT 12/12/2024 2:[address] [facility] - 12/12/2024 2:38 AM EDT High levels of biotin in samples may falsely decrease hsTroponin values. Use caution when interpreting hsTroponin results in patients taking biotin who exhibit renal impairment (eGFR <60) or in patients taking more than 20 mg/day of biotin. Eduardo Baumann MD LAB BLOOD ORDERABLES Final R esult Performing Organization Address [facility]/ZIP Co de Phone Number [facility] [address] [place] [address], [place] [phone] * C-reactive protein (12/11/2024 10:52 PM EDT) [facility] C-Reactive Protein 0.50 <=0.50 mg/dL LAB CHEMISTRY METHOD 12/12/2024 2:[address] [facility] Blood Venous blood specimen / Unknown Venipuncture / Unknown 12/11/2024 10:52 PM EDT 12/11/2024 11:41 PM EDT Tyler Ortiz MD LAB BLOOD ORDERABLES Final Result Performing Organization Address [facility]/ZIP Co de Phone Number [facility] [address] [place] [address], [place] [phone] * B-type natriuretic peptide (12/11/2024 10:52 PM EDT) Only the most recent of4 resultswithin the time period is included. Pathologist [facility] BNP 79 <=100 pcg/mL LAB CHEMISTRY METHOD 12/12/2024 12:[address] [facility] Blood Venous blood specimen / Unknown Venipuncture / Unknown 12/11/2024 10:52 PM EDT 12/11/2024 11:51 PM EDT Eduardo Baumann MD LAB BLOOD ORDERABLES Final R esult Performing Organization Address [facility]/[place]UST de Phone Number [facility] [address] [place] [address], [place] [phone] * (ABNORMAL) Lipase (12/11/2024 10:52 PM EDT) Only the most recent of2 resultswithin the time period is included. Pathologist [facility] Lipase 87(H) 13 - 75 unit/L LAB CHEMISTRY METHOD 12/12/2024 12:[address] [facility] Blood Venous blood specimen / Unknown Venipuncture / Unknown 12/11/2024 10:52 PM EDT 12/11/2024 11:41 PM EDT Eduardo Baumann MD LAB BLOOD ORDERABLES Final R esult Performing Organization Address [facility]/ZIP Co de Phone Number [facility] [address] [place] [address], [place] [phone] * (ABNORMAL) Hemoglobin A1c (12/11/2024 10:52 PM EDT) [facility] Hemoglobin A1C 8.5(H) <6.5 % LAB CHEMISTRY METHOD 12/12/2024 10:[address] [facility] Mean Bld Glu Estim. 197 mg/dL LAB CHEMISTRY METHOD 12/12/2024 10:[address] [facility] Blood Venous blood specimen / Unknown Venipuncture / Unknown 12/11/2024 10:52 PM EDT 12/11/2024 11:42 PM EDT Alyssa Blancas NP LAB BLOOD ORDERABLES Merle l Result Performing Organization Address [facility]/ZIP Co de Phone Number [facility] [address] [place] [address], * Ethanol (12/11/2024 10:52 PM EDT) Ethanol Level <3 0 - 10 mg/dL LAB CHEMISTRY METHOD 12/12/2024 2:[address] [facility] Blood Venous blood specimen / Unknown Venipuncture / Unknown 12/11/2024 10:52 PM EDT 12/11/2024 11:41 PM EDT Tyler Ortiz MD LAB BLOOD ORDERABLES Final Result Performing Organization Address [facility]/ZIP Co de Phone Number [facility] [address] [place] [address], * (ABNORMAL) Comprehensive metabolic panel (12/11/2024 10:52 PM EDT) Only the most recent of3 resultswithin the time period is included. Sodium 128(L) 133 - 145 mmol/L LAB CHEMISTRY METHOD 12/12/2024 12:[address] [facility] Potassium 2.8(LL) 3.5 - 5.5 mmol/L LAB CHEMISTRY METHOD 12/12/2024 12:[address] [facility] Chloride 82(L) 96 - 110 mmol/L LAB CHEMISTRY METHOD 12/12/2024 12:48 AM [facility] CO2 37(H) 21 - 32 mmol/L LAB CHEMISTRY METHOD 12/12/2024 12:48 AM [facility] Anion Gap 9 3 - 11 LAB CHEMISTRY METHOD 12/12/2024 12:48 AM [facility] Glucose 169(H) 70 - 100 mg/dL LAB CHEMISTRY METHOD 12/12/2024 12:48 AM [facility] BUN 29(H) 5 - 25 mg/dL LAB CHEMISTRY METHOD 12/12/2024 12:48 AM [facility] Creatinine 1.50(H) 0.70 - 1.30 mg/dL LAB CHEMISTRY METHOD 12/12/2024 12:48 AM [facility] eGFR 51(L) >=60 mL/min/1. 73m2 LAB CHEMISTRY METHOD 12/12/2024 12:48 AM [facility] Comment:Calculation based on the Chronic Kidney Disease Epidemiology Collaboration (CKD-EPI) equation refit without adjustment for race. BUN/Creatinine Ratio 19.3 LAB CHEMISTRY METHOD 12/12/2024 12:48 AM [facility] Calcium 9.5 8.5 - 10.5 mg/dL LAB CHEMISTRY METHOD 12/12/2024 12:48 AM [facility] AST (SGOT) 67(H) 10 - 42 unit/L LAB CHEMISTRY METHOD 12/12/2024 12:48 AM [facility] ALT (SGPT) 98(H) 10 - 60 unit/L LAB CHEMISTRY METHOD 12/12/2024 12:48 AM [facility] Alkaline Phosphatase 116 42 - 121 unit/L LAB CHEMISTRY METHOD 12/12/2024 12:48 AM [facility] Total Protein 7.7 6.0 - 8.0 g/dL LAB CHEMISTRY METHOD 12/12/2024 12:[address] [facility] Albumin 4.0 3.2 - 5.0 g/dL LAB CHEMISTRY METHOD 12/12/2024 12:[address] [facility] Total Bilirubin 0.7 0.0 - 1.4 mg/dL LAB CHEMISTRY METHOD 12/12/2024 12:[address] [facility] Blood Venous blood specimen / Unknown Venipuncture / Unknown 12/11/2024 10:52 PM EDT 12/11/2024 11:41 PM EDT us Eudardo Baumann MD LAB BLOOD ORDERABLES Final R esult [facility] [address] [place] [address], [place] [phone] * ECG 12 lead (12/11/2024 10:47 PM EDT) Only the most recent of3 resultswithin the time period is included. Ventricular Rate ECG 61 BPM GEMUSE Atrial Rate 61 BPM GEMUSE P-R Interval 202 ms GEMUSE QRS Duration 108 ms GEMUSE Q-T Interval 436 ms GEMUSE QTc 438 ms GEMUSE P Wave [place] 37 degrees GEMUSE R [place] 65 degrees GEMUSE T [place] 13 degrees GEMUSE ECG Interpretation Normal sinus rhythm Low voltage QRS Possible Anterolateral infarct (cited on or before 01-DEC-2024) T wave abnormality, consider inferior ischemia Abnormal ECG When compared with ECG of 01-DEC-2024 21:38, Premature ventricular complexes are no longer Present Confirmed by SIDRA GARRETT ([id number]) on 12/12/2024 11:43:36 AM GEMUSE 12/11/2024 10:4 7 PM EDT 12/12/2024 11:43 AM EDT us Eduardo Baumann MD ECG ORDERABLES Final Result GEMUSE * Cardiac device check - Remote- MURJ (12/03/2024 11:49 AM EDT) Only the most recent of3 resultswithin the time period is included. Date Time Interrogation Session [id number] CV DEVICE CHECK Type Interrogation Session RemoteScheduled CV DEVICE CHECK Implantable Pulse Generator Trimming Department Blocker BIO CV DEVICE CHECK Implantable Pulse Generator Type ICD CV DEVICE CHECK Implantable Pulse Generator Model Acticor 7 VR-T DX CV DEVICE CHECK Implantable Pulse Generator Serial Number [id number] CV DEVICE CHECK Implantable Pulse Generator Implant Date 20201109 CV DEVICE CHECK Battery Remaining Percentage 100.00 CV DEVICE CHECK Battery Voltage 3.110 CV D EVICE CHECK Battery [employer] Trigger 2.850 CV DEVICE CHECK Battery Status Beginning of Service CV DEVICE CHECK Capacitor Charge Time 9.500 CV DEVICE CHECK Perry Statistic RV Percent Paced 1.00 CV DEVICE CHECK Atrial Tachy Statistic AT/AF [place] Percent 0.00 CV DEVICE CHECK Lead Channel Sensing Intrinsic Amplitude 1.200 CV DEVICE CHECK Lead Channel Setting Sensing Sensitivity 1.00 CV DEVICE CHECK Lead Channel RA Pacing Threshold Date 2024-11-29 CV DEVICE CHECK Lead Channel Sensing Intrinsic Amplitude 12.400 CV DEVICE CHECK Lead Channel Setting Sensing Sensitivity 0.60 CV DEVICE CHECK Lead Channel Impedance Value 481 CV DEVICE CHECK Lead Channel Pacing Threshold Amplitude 1.000 CV DEVICE CHECK Lead Channel Pacing Threshold Pulse Width 0.4 CV DEVICE CHECK Lead Channel RV Pacing Threshold Date 2024-11-29 CV DEVICE CHECK Lead Channel Setting Pacing Amplitude 2.000 CV DEVICE CHECK Lead Channel Setting Pacing Pulse Width 0.4 CV DEVICE CHECK Perry Setting Mode (NBG Code) VVI CV DEVICE CHECK Perry Setting Lower Rate Limit 40 CV DEVICE CHECK Therapy Statistic Recent Shocks Delivered 0 CV DEVICE CHECK Therapy Statistic Recent Shocks Aborted 0 CV DEVICE CHECK Therapy Statistic Recent ATP Delivered 0 CV DEVICE CHECK Shock Measured Impedance 78 CV DEVICE CHECK Zone Setting Type Category Zone_ATAF CV DEVICE CHECK Rate 200 CV DEVICE CHECK Zone Setting Status Monitor CV DEVICE CHECK Zone ID 7 CV DEVICE CHECK Zone Setting Type Category VF CV DEVICE CHECK Rate 200 CV DEVICE CHECK Therapies Burst,40.0J,40.0J, 40.0J x 6 CV DEVICE CHECK Zone Setting Status On CV DEVICE CHECK Zone ID 8 CV DEVICE CHECK Zone Setting Type Category VT CV DEVICE CHECK Rate 150 CV DEVICE CHECK Zone Setting Status Monitor CV DEVICE CHECK Zone ID 9 CV DEVICE CHECK Zone Setting Type Category VT CV DEVICE CHECK Zone Setting Status Inactive CV DEVICE CHECK Zone ID 10 CV DEVICE CHECK Date of Service 2024-12-30 CV DEVICE CHECK Anatomical Region Laterality Modality Device Interroga tion 11/29/2024 1:38 AM EDT Impressions 12/03/2024 11:12 AM EDT Normal Remote: No Events Sent to Triage for Heart Failure * Normal Device Function * Alerts or events: None * Battery: Battery is at 100%, * Sensing, impedance and thresholds reviewed * Programmed parameters reviewed * Presenting rhythm reviewed * Heart Rate Histograms reviewed * No significant changes noted Heart Failure Diagnostic: Elevated * Heart failure diagnostics assessed through the device * Status: Elevated Narrative Procedure Note Yudi Hector PA - 12/05/2024 IMPRESSION: Normal Remote: No Events Sent to Triage for Heart Failure * Normal Device Function * Alerts or events: None * Battery: Battery is at 100%, * Sensing, impedance and thresholds reviewed * Programmed parameters reviewed * Presenting rhythm reviewed * Heart Rate Histograms reviewed * No significant changes noted Heart Failure Diagnostic: Elevated * Heart failure diagnostics assessed through the device * Status: Elevated Yudi ANDUJAR CV IMPLANTABLE CARDIAC DEVICE AR OCEDURES Final Result * Drug abuse screen expanded with reflex confirmation, urine (12/03/2024 10:07 AM EDT) Amphetamine Screen, Ur Negative Negative LAB CHEMISTRY METHOD 12/03/2024 6:[address] [facility] Comment:Certain OTC medicati ons containing ephedrine, phenylephrine, pseudoephedrine and phenylpropanolamine can cause false positive results. Barbiturate Screen, Ur Negative Negative LAB CHEMISTRY METHOD 12/03/2024 6:[address] [facility] Benzodiazepine Screen, Ur Negative Negative LAB CHEMISTRY METHOD 12/03/2024 6:08 PM [facility] Cocaine Screen, Ur Negative Negative LAB CHEMISTRY METHOD 12/03/2024 6:08 PM [facility] Opiate Screen, Ur Negative Negative LAB CHEMISTRY METHOD 12/03/2024 6:[address] [facility] Cannabinoid (THC) Screen, Ur Negative Negative LAB CHEMISTRY METHOD 12/03/2024 6:[address] [facility] Comment:Specimens from patie nts taking pantoprazole sodium (Protonix) have been shown to produce false positive results. Fentanyl, Ur Negative Negative LAB CHEMISTRY METHOD 12/03/2024 6:[address] [facility] Oxycodone Screen, Ur Negative Negative LAB CHEMISTRY METHOD 12/03/2024 6:[address] [facility] Urine Urine specimen obtained by clean catch procedure / Unknown Non-blood Collection / Unknown 12/03/2024 10:07 AM EDT 12/03/2024 10:07 AM EDT [facility] - 12/03/2024 6:08 PM EDT Assay cutoffs: Amphetamines 1000 ng/mL Barbiturates 200 ng/mL Benzodiazepines 200 ng/mL Cocaine 300 ng/mL Fentanyl 1 ng/mL Opiates 300 ng/mL Oxycodone 100 ng/mL THC 50 ng/mL Semi-quantitative assay for screening purposes only. Unconfirmed screening result should not be used for non-medical purposes. *POSITIVE RESULTS ARE AUTOMATICALLY SENT FOR ALTERNATE METHOD CONFIRMATION* Susy Gilmore MD LAB URINE ORDERABLES Final Result [facility] [address] [place] [address], * C reactive protein, high sensitivity (11/18/2024 10:17 AM EDT) Pathologist [facility] CRP, High Sensitivity 3.36 mg/L LAB CHEMISTRY METHOD 11/18/2024 11:[address] [facility] Comment: Cardio CRP Relative Risk Categories Low <1.0 mg/L Average 1.0 - 3.0 mg/L High >3.0 mg/L Levels >10.0 mg/L should be ignored and repeated when the patient is stable and infection or inflammation is ruled out. Blood Venous blood specimen / Unknown Venipuncture / Unknown 11/18/2024 10:17 AM EDT 11/18/2024 10:17 AM EDT Susy Gilmore MD LAB BLOOD ORDERABLES Final Result Performing Organization Address [facility]/ZIP Co de Phone Number [facility] [address] [place] [address], [place] [phone] * Uric acid (11/18/2024 10:17 AM EDT) Uric Acid 3.9 3.7 - 9.2 mg/dL LAB CHEMISTRY METHOD 11/18/2024 11:[address] [facility] Blood Venous blood specimen / Unknown Venipuncture / Unknown 11/18/2024 10:17 AM EDT 11/18/2024 10:17 AM EDT Susy Gilmore MD LAB BLOOD ORDERABLES Final Result Performing Organization Address [facility] Co de Phone Number [facility] [address] [place] [address], [place] [phone] * MR Brain wo Contrast (09/24/2024 11:24 AM EDT) Anatomical Region Laterality Modality Head and Neck Magnetic Resonan ce 09/24/2024 1:40 PM EDT Impressions 09/24/2024 1:46 PM EDT 1. No acute findings. 2. Moderate chronic microvascular ischemic changes. 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 3. No signal abnormality in the substantia nigra. -------- FINAL REPORT -------- Dictated By: Mark Hardwick Dictated Date: 09/24/2024 13:40 ET Assigned Physician: Mark Hardwick Reviewed and Electronically Signed By: Mark Hardwick Signed Date: 09/24/2024 13:46 ET Workstation ID: [id number] Transcribed By: Self Edit Transcribed Date: 09/24/2024 13:40 ET Narrative 09/24/2024 1:46 PM EDT PROCEDURE: Noncontrast MRI of the brain. HISTORY: Headache, chronic, no new features Headache, new or worsening (Age >= 50y) Parkinson's disease 63 y/o AAM with 1) progressive tremors of hands, R>L, cogwheel rigidity, festinating gait, 2) new and progressive headaches. Any hyperintensity in SN on T2 or hypointensity on T1?. COMPARISON: Head CT 05/10/2023. TECHNIQUE: Multiplanar multisequence MRI of the brain without intravenous contrast administration. FINDINGS: BRAIN: No diffusion abnormality. No mass or extra-axial fluid collection. No hydrocephalus. The major intracranial flow voids are preserved. Age commensurate ventricles and sulci. Small foci of encephalomalacia in the right cerebellum suggesting sequela of remote small vessel infarcts. Encephalomalacia in the inferior right parieto-occipital region which is also likely secondary to a remote infarct MARIEL territory. Patchy T2 hyperintensities in the supratentorial white matter are nonspecific but most likely changes of moderate chronic microvascular ischemic disease., Requested regarding possible T2 hyperintensity or T1 hypointensity in the region of the substantia nigra; no signal abnormality is present. ORBITS: Normal. SINUSES/MASTOIDS: The frontal sinuses are not pneumatized. Mild mucosal thickening in the right ethmoid air cells. There is a deformity of the posterior wall of the left maxillary antrum which could be congenital or posttraumatic. CALVARIUM: Normal. OTHER: The visualized skull base soft tissues are normal. Mild degenerative changes of the visualized cervical spine. Procedure Note Mark Hardwick MD - 09/24/2024 PROCEDURE: Noncontrast MRI of the brain. HISTORY: Headache, chronic, no new features Headache, new or worsening (Age >= 50y) Parkinson's disease 63 y/o AAM with 1) progressive tremors of hands, R>L, cogwheel rigidity,festinating gait, 2) new and progressive headaches. Any hyperintensity inSN on T2 or hypointensity on T1?. COMPARISON: Head CT 05/10/2023. TECHNIQUE: Multiplanar multisequence MRI of the brain without intravenouscontrast administration. FINDINGS: BRAIN: No diffusion abnormality. No mass or extra-axial fluid collection.No hydrocephalus. The major intracranial flow voids are preserved. Agecommensurate ventricles and sulci. Small foci of encephalomalacia in theright cerebellum suggesting sequela of remote small vessel infarcts.Encephalomalacia in the inferior right parieto-occipital region which isalso likely secondary to a remote infarct MARIEL territory. Patchy [id number] in the supratentorial white matter are nonspecific butmost likely changes of moderate chronic microvascular ischemic disease.,Requested regarding possible T2 hyperintensity or T1 hypointensity in theregion of the substantia nigra; no signal abnormality is present. ORBITS: Normal. SINUSES/MASTOIDS: The frontal sinuses are not pneumatized. Mild mucosalthickening in the right ethmoid air cells. There is a deformity of theposterior wall of the left maxillary antrum which could be congenital orposttraumatic. CALVARIUM: Normal. OTHER: The visualized skull base soft tissues are normal. Milddegenerative changes of the visualized cervical spine. IMPRESSION: 1. No acute findings. 2. Moderate chronic microvascular ischemic changes. Remote infarcts inthe right parieto-occipital region and right cerebellum. 3. No signal abnormality in the substantia nigra. -------- FINAL REPORT -------- Dictated By: Mark Hardwick Dictated Date: 09/24/2024 13:40 ET Assigned Physician: Mark Hardwick Reviewed and Electronically Signed By: Mark Hardwick Signed Date: 09/24/2024 13:46 ET Workstation ID: [id number] Transcribed By: Self Edit Transcribed Date: 09/24/2024 13:40 ET us Susy Gilmore [place] [facility] [place] Final Re sult * Lipid panel with reflex to direct LDL (06/27/2024 10:14 AM EDT) Cholesterol 150 0 - 200 mg/dL LAB CHEMISTRY METHOD 06/27/2024 7:[address] [facility] Triglycerides 114 0 - 150 mg/dL LAB CHEMISTRY METHOD 06/27/2024 7:[address] [facility] HDL 59 >=40 mg/dL LAB CHEMISTRY METHOD 06/27/2024 7:[address] [facility] LDL Calculated 68 0 - 100 mg/dL LAB CHEMISTRY METHOD 06/27/2024 7:[address] [facility] VLDL Cholesterol Trever 22.8 mg/dL LAB CHEMISTRY METHOD 06/27/2024 7:[address] [facility] Non HDL Chol. (LDL+VLDL) 91 <145 mg/dL LAB CHEMISTRY METHOD 06/27/2024 7:[address] [facility] Chol/HDL Ratio 2.5 0.0 - 4.4 LAB CHEMISTRY METHOD 06/27/2024 7:[address] [facility] Blood Venous blood specimen / Unknown Venipuncture / Unknown 06/27/2024 10:14 AM EDT 06/27/2024 10:14 AM EDT Mile Tobias SECURITY MANAGER LAB BLOOD ORDERABLES Final Re sult [facility] [address] [place] [address], [place] [phone] * Microalbumin creatinine urine ratio (06/27/2024 10:14 AM EDT) Creatinine, Urine 141.0 mg/dL LAB CHEMISTRY METHOD 06/27/2024 7:[address] [facility] Microalb, Ur 18.3 0.0 - 29.0 mg/L LAB CHEMISTRY METHOD 06/27/2024 7:[address] [facility] Microalb/Creat Ratio 13 <30 mg/g creat LAB CHEMISTRY METHOD 06/27/2024 7:[address] [facility] Urine Urine specimen obtained by clean catch procedure / Unknown Non-blood Collection / Unknown 06/27/2024 10:14 AM EDT 06/27/2024 10:14 AM EDT us Mile Seguraa SECURITY MANAGER LAB URINE ORDERABLES Final Re sult [facility] [address] [place] [address], from Last 3 Months or Most Recently Relevant to Health Maintenance Insurance [employer] [address] [place] [phone] [employer] [place] [address] [place] [id number] [employer] [facility] Advance Directives Documents on File Type Date Recorded 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 Do not modify or discontinue any currently active code status orders. * Full Code - Confirmed Date Activated Date Inactivated Comments 05/09/2024 11:33 AM 12/11/2024 9:38 PM This code s tatus was ascertained in the following way: Code status discussion: per living will or healthcare instructions To update the patient's code status, place a code status order. Do not modify or discontinue any currently active code status orders. Healthcare Agents on File Name Relationship Healthcare Agent Relationship Communication Michelle Mejia Sister Health Care Agent Nat Ga Relative First Alternate Health Care Agent Care Teams Principal Technical Writer Relationship Specialty Start Date End Date Mile Tobias NP [address] [address] PCP - General Family Medicine 12/01/24
--- OUTSIDE RECORDS SUMMARY | 2024-12-16 04:25 | XMS_ITS | Encounter Summary ---
[facility] Organization [facility] Address [address] [place] [address] Care Team Providers Care Gear Grinding Machine Operator Name Role Phone Deloris Tobias CHARGE LPN Primary Care Provider [phone] Reason for Visit * Reason Onset Date Comments Other 11/16/2024 Home care nurse called regarding pt's concerns or R lateral foot pain which is severe, per pt. Engineering Manager MD will send tramadol for the pain, for 5 days. Asked Home Care nurse to advise tylenol 1000mg TID as well to pt. Will send them as well. call center rn nurse to get following labs tomorrow: CBC w/D, CRP, uric acid. Encounter Details Date Type Department Care Team (Late st Contact Info) Description 11/16/2024 PACE On-Call [facility] PACE Clinic [address] [place] [address] Susy Martin MD 200 [facility] [address] [place], [place] [id number] Acute pain of right foot (Primary Dx) Social History Tobacco Use Types [...] on file documented as of this encounter Ordered Prescriptions Prescription Sig Dispense Quantity Refills Last Filled Start Date End Date traMADoL (ULTRAM) 50 mg tabletIndications: Acute pain of right foot Take 1 tablet (50 mg total) by mouth every 8 (eight) hours if needed for severe pain or moderate pain for up to 7 days. Max Daily Amount: 150 mg 21 tablet 11/16/2024 documented in this encounter Plan of Treatment Upcoming Encounters Date Type Department Care Team (Late st Contact Info) Description 12/16/2024 9:30 AM EDT PACE Home Care / PACE Home Visit [facility] [address] [place] [address] Merlin Forbes 12/16/2024 11:00 AM EDT Office Visit [facility] [address] [place] [address] Deloris Tobias NP [address] [address] 12/16/2024 6:00 PM EDT PACE Home Care / PACE Home Visit Em[facility] [address] [place] [phone] My Phillips 12/17/2024 7:00 AM EDT Clinical Support [facility] [address] [place] [address] Nkechi Grajeda RN 12/17/2024 9:30 AM EDT PACE Home Care / PACE Home Visit Em[facility] [address] [place] [address] Merlin Forbes 12/17/2024 11:00 AM EDT Treatment Emilee MAHONEY MA Occupational Therapy [address] [place] [phone] Tyler Ling OT 12/17/2024 6:00 PM EDT PACE Home Care / PACE Home Visit Em[facility] [address] [place] [phone] My Phillips 12/18/2024 10:00 AM EDT PACE Home Care / PACE Home Visit Emilee [facility] [address] [place] [phone] Merlin Forbes 12/18/2024 6:00 PM EDT PACE Home Care / PACE Home Visit Emilee [facility] [address] [place] [phone] My Phillips 12/19/2024 10:30 AM EDT PACE Home Care / PACE Home Visit Em[facility] [address] [place] [phone] Merlin Forbes 12/19/2024 6:00 PM EDT PACE Home Care / PACE Home Visit Emilee [facility] [address] [place] [phone] My Phillips 12/20/2024 9:00 AM EDT Appointment [address] [phone] 12/20/2024 9:30 AM EDT PACE Home Care / PACE Home Visit Emilee [facility] [address] [place] [phone] Merlin Forbes 12/20/2024 6:00 PM EDT PACE Home Care / PACE Home Visit Emilee [facility] [address] [place] [phone] My Phillips 12/21/2024 8:30 AM EDT PACE Home Care / PACE Home Visit Emilee [facility] [address] [place] [address] Anabelle Valdez 12/22/2024 8:30 AM EDT PACE Home Care / PACE Home Visit Em[facility] [address] [place] [address] Anabelle Valdez 12/23/2024 9:30 AM EDT PACE Home Care / PACE Home Visit Emilee [facility] [address] [place] [address] Merlin Forbes 12/23/2024 6:00 PM EDT PACE Home Care / PACE Home Visit Em[facility] [address] [place] [address] My Phillips 12/24/2024 7:00 AM EDT Clinical Support [facility] [address] [place] [address] Nkechi Grajeda RN 12/24/2024 9:30 AM EDT PACE Home Care / PACE Home Visit Em[facility] [address] [place] [address] Merlin Forbes 12/24/2024 6:00 PM EDT PACE Home Care / PACE Home Visit Emilee [facility] [address] [place] [address] My Phillips 12/25/2024 10:00 AM EDT PACE Home Care / PACE Home Visit Emilee [facility] [address] [place] [address] Merlin Forbes 12/25/2024 6:00 PM EDT PACE Home Care / PACE Home Visit Emilee [facility] [address] [place] [address] My Phillips 12/26/2024 10:40 AM EDT Clinical Support Emilee MAHONEY [place] [address] [place] [address] 12/26/2024 6:00 PM EDT PACE Home Care / PACE Home Visit Emilee [facility] [address] [place] [phone] My Phillips 12/27/2024 9:30 AM EDT PACE Home Care / PACE Home Visit [facility] [address] [place] [phone] Merlin Forbes 12/27/2024 6:00 PM EDT PACE Home Care / PACE Home Visit Em[facility] [address] [place] [phone] My Phillips 12/30/2024 9:30 AM EDT PACE Home Care / PACE Home Visit Em[facility] [address] [place] [phone] Merlin Forbes 12/30/2024 6:00 PM EDT PACE Home Care / PACE Home Visit Em[facility] [address] [place] [phone] My Phillips 12/31/2024 7:00 AM EDT Clinical Support [facility] [address] [place] [phone] Nkechi Grajeda RN 12/31/2024 9:30 AM EDT PACE Home Care / PACE Home Visit Emilee [facility] [address] [place] [phone] Merlin Forbes 12/31/2024 10:00 AM EDT Ancillary Procedure [facility] - [address] [place] [address] 12/31/2024 6:00 PM EDT PACE Home Care / PACE Home Visit Emilee [facility] [address] [place] [address] My Phillips 01/01/2025 10:00 AM EDT PACE Home Care / PACE Home Visit Em[facility] [address] [place] [address] Merlin Forbes 01/01/2025 6:00 PM EDT PACE Home Care / PACE Home Visit Em[facility] [address] [place] [address] My Phillips 01/02/2025 10:30 AM EDT PACE Home Care / PACE Home Visit [facility] [address] [place] [address] Merlin Forbes 01/02/2025 3:00 PM EDT Clinical Support Emilee MAHONEY MA [address] [place] [address] 01/02/2025 6:00 PM EDT PACE Home Care / PACE Home Visit [facility] [address] [place] [phone] My Phillips 01/03/2025 9:30 AM EDT PACE Home Care / PACE Home Visit Emilee [facility] [address] [place] [phone] Merlin Forbes 01/03/2025 6:00 PM EDT PACE Home Care / PACE Home Visit Emilee [facility] [address] [place] [address] My Phillips 01/04/2025 8:30 AM EDT PACE Home Care / PACE Home Visit Em[facility] [address] [place] [phone] Anabelle Valdez 01/05/2025 8:30 AM EDT PACE Home Care / PACE Home Visit Em[facility] [address] [place] [address] Anbaelle Valdez 01/06/2025 9:30 AM EDT PACE Home Care / PACE Home Visit [facility] [address] [place] [address] Merlin Forbes 01/06/2025 6:00 PM EDT PACE Home Care / PACE Home Visit Em[facility] [address] [place] [address] My Phillips 01/07/2025 7:00 AM EDT Clinical Support [facility] [address] [place] [address] Nkechi Grajeda, EDD 01/07/2025 8:15 AM EDT Clinical Support [facility] [place] [facility] [address] [place] [address] Nkechi Grajeda, EDD 01/07/2025 9:30 AM EDT PACE Home Care / PACE Home Visit Em[facility] [address] [place] [phone] Merlin Forbes 01/07/2025 6:00 PM EDT PACE Home Care / PACE Home Visit [facility] [address] [place] [phone] My Phillips 01/08/2025 10:00 AM EDT PACE Home Care / PACE Home Visit [facility] [address] [place] [phone] Merlin Forbes 01/08/2025 6:00 PM EDT PACE Home Care / PACE Home Visit [facility] [address] [place] [address] My Phillips 01/09/2025 10:30 AM EDT PACE Home Care / PACE Home Visit Em[facility] [address] [place] [address] Merlin Forbes 01/09/2025 6:00 PM EDT PACE Home Care / PACE Home Visit [facility] [address] [place] [phone] My Phillips 01/10/2025 9:30 AM EDT PACE Home Care / PACE Home Visit Em[facility] [address] [place] [phone] Merlin Forbes 01/10/2025 10:00 AM EDT Clinical Support Emilee MAHONEY [place] [address] [place] [address] 01/10/2025 6:00 PM EDT PACE Home Care / PACE Home Visit Em[facility] [address] [place] [phone] My Phillips 01/13/2025 9:30 AM EDT PACE Home Care / PACE Home Visit Em[facility] [address] [place] [phone] Merlin Forbes 01/13/2025 6:00 PM EDT PACE Home Care / PACE Home Visit Em[facility] [address] [place] [phone] My Phillips 01/14/2025 7:00 AM EDT Clinical Support [facility] [place] [facility] [address] [place] [phone] Nkechi Grajeda, EDD 01/14/2025 9:30 AM EDT PACE Home Care / PACE Home Visit [facility] [address] [place] [phone] Merlin Forbes 01/14/2025 6:00 PM EDT PACE Home Care / PACE Home Visit Em[facility] [address] [place] [phone] My Phillips 01/15/2025 10:00 AM EDT PACE Home Care / PACE Home Visit Em[facility] [address] [place] [phone] Merlin Forbes 01/15/2025 6:00 PM EDT PACE Home Care / PACE Home Visit Em[facility] [address] [place] [phone] My Phillips 01/16/2025 10:30 AM EDT PACE Home Care / PACE Home Visit Em[facility] [address] [place] [phone] Merlin Forbes 01/16/2025 6:00 PM EDT PACE Home Care / PACE Home Visit Em[facility] [address] [place] [phone] My Phillips 01/17/2025 9:30 AM EDT PACE Home Care / PACE Home Visit Em[facility] [address] [place] [phone] Merlin Forbes 01/17/2025 6:00 PM EDT PACE Home Care / PACE Home Visit Em[facility] [address] [place] [phone] My Phillips 01/18/2025 8:30 AM EDT PACE Home Care / PACE Home Visit Em[facility] [address] [place] [phone] Anabelle Valdez 01/19/2025 8:30 AM EST PACE Home Care / PACE Home Visit Em[facility] [address] [place] [phone] Anabelle Valdez 01/20/2025 9:30 AM EST PACE Home Care / PACE Home Visit Em[facility] [address] [place] [phone] Merlin Forbes 01/20/2025 6:00 PM EST PACE Home Care / PACE Home Visit Em[facility] [address] [place] [phone] My Phillips 01/21/2025 7:00 AM EST Clinical Support [facility] [address] [place] [address] Nkechi Grajeda RN 01/21/2025 9:30 AM EST PACE Home Care / PACE Home Visit [facility] [address] [place] [phone] Merlin Forbes 01/21/2025 10:45 AM EST Clinical Support Emilee MAHONEY MA [address] [place] [address] 01/21/2025 6:00 PM EST PACE Home Care / PACE Home Visit [facility] [address] [place] [phone] My Phillips 01/22/2025 10:00 AM EST PACE Home Care / PACE Home Visit Em[facility] [address] [place] [phone] Merlin Forbes 01/22/2025 6:00 PM EST PACE Home Care / PACE Home Visit [facility] [address] [place] [phone] My Phillips 01/23/2025 10:30 AM EST PACE Home Care / PACE Home Visit Emilee [facility] [address] [place] [phone] Merlin Forbes 01/23/2025 6:00 PM EST PACE Home Care / [facility] [place] [facility] [address] [place] [address] My Phillips 01/24/2025 9:30 AM EST PACE Home Care / PACE Home Visit mEilee MAHONEY [facility] [address] [place] [address] Merlin Forbes 01/24/2025 6:00 PM EST PACE Home Care / PACE Home Visit Emilee [facility]Y [facility] [address] [place] [phone] My Phillips 01/27/2025 9:30 AM EST PACE Home Care / PACE Home Visit [facility] [address] [place] [phone] Merlin Forbes 01/27/2025 6:00 PM EST PACE Home Care / PACE Home Visit [facility] [address] [place] [phone] My Phillips 01/28/2025 7:00 AM EST Clinical Support [facility] [address] [place] [phone] Nkechi Grajeda RN 01/28/2025 9:30 AM EST PACE Home Care / PACE Home Visit [facility] [address] [place] [address] Merlin Forbes 01/28/2025 6:00 PM EST PACE Home Care / PACE Home Visit [facility] [place] [facility] [address] [place] [phone] My Phillips 01/29/2025 10:00 AM EST PACE Home Care / PACE Home Visit Em[facility] [address] [place] [phone] Merlin Forbes 01/29/2025 6:00 PM EST PACE Home Care / PACE Home Visit [facility] [address] [place] [phone] My Phillips 01/30/2025 10:30 AM EST PACE Home Care / PACE Home Visit [facility] [place] [facility] [address] [place] [phone] Merlin Forbes 01/30/2025 6:00 PM EST PACE Home Care / PACE Home Visit [facility] [place] [facility] [address] [place] [phone] My Phillips 01/31/2025 9:30 AM EST PACE Home Care / PACE Home Visit [facility] [place] [facility] [address] [place] [phone] Merlin Forbes 01/31/2025 11:00 AM EST PACE External Visit [facility] [place] [address] [place] [address] 01/31/2025 6:00 PM EST PACE Home Care / PACE Home Visit [facility] [place] [facility] [address] [place] [phone] My Phillips 02/01/2025 8:30 AM EST PACE Home Care / PACE Home Visit [facility] [place] [facility] [address] [place] [phone] Anabelle Valdez 02/02/2025 8:30 AM EST PACE Home Care / PACE Home Visit [facility] [place] [facility] [address] [place] [phone] Anabelle Valdez 02/03/2025 9:30 AM EST PACE Home Care / PACE Home Visit [facility] [place] [facility] [address] [place] [phone] Merlin Forbes 02/03/2025 6:00 PM EST PACE Home Care / PACE Home Visit [facility] [address] [place] [phone] My Phillips 02/04/2025 7:00 AM EST Clinical Support [facility] [place] [facility] [address] [place] [address] Nkechi Grajeda, RN 02/04/2025 8:15 AM EST Clinical Support [facility] [place] [facility] [address] [place] [phone] Nkechi Grajeda, EDD 02/04/2025 9:30 AM EST PACE Home Care / PACE Home Visit [facility] [address] [place] [phone] Merlin Forbes 02/04/2025 6:00 PM EST PACE Home Care / PACE Home Visit [facility] [address] [place] [phone] My Phillips 02/05/2025 10:00 AM EST PACE Home Care / PACE Home Visit [facility] [address] [place] [phone] Merlin Forbes 02/05/2025 6:00 PM EST PACE Home Care / PACE Home Visit [facility] [address] [place] [phone] My Phillips 02/06/2025 10:30 AM EST PACE Home Care / PACE Home Visit [facility] [address] [place] [phone] Merlin Forbes 02/06/2025 6:00 PM EST PACE Home Care / PACE Home Visit [facility] [address] [place] [phone] My Phillips 02/07/2025 9:30 AM EST PACE Home Care / PACE [facility] Visit [facility] [place] [facility] [address] [place] [address] Merlin Forbes 02/07/2025 6:00 PM EST PACE Home Care / PACE Home Visit [facility] [place] [facility] [address] [place] [address] My Phillips 02/10/2025 9:30 AM EST PACE Home Care / P[facility] Visit [facility] [place] [facility] [address] [place] [phone] Merlin Forbes 02/10/2025 6:00 PM EST PACE Home Care / PACE Home Visit [facility] [address] [place] [phone] My Phillips 02/11/2025 7:00 AM EST Clinical Support [facility] [place] [facility] [address] [place] [address] Nkechi Grajeda RN 02/11/2025 9:30 AM EST PACE Home Care / PACE Home Visit [facility] [address] [place] [phone] Merlin Forbes 02/11/2025 6:00 PM EST PACE Home Care / [facility] Visit [facility] [place] [facility] [address] [place] [phone] My Phillips 02/12/2025 10:00 AM EST PACE Home Care / PACE Home Visit [facility] [place] [facility] [address] [place] [address] Merlin Forbes 02/12/2025 6:00 PM EST PACE Home Care / PACE Home Visit [facility] [place] [facility] [address] [place] [phone] My Phillips 02/13/2025 10:30 AM EST PACE Home Care / PACE Home Visit [facility] [place] [facility] [address] [place] [phone] Jaunherson LeathaEddy 02/13/2025 6:00 PM EST PACE Home Care / PACE Home Visit [facility] [place] [facility] [address] [place] [phone] [facility] 02/18/2025 7:00 AM EST Clinical Support [facility] [place] [facility] [address] [place] [phone] Nkechi Grajeda, EDD 02/25/2025 7:00 AM EST Clinical Support [facility] [place] [facility] [address] [place] [phone] Nkechi Grajeda, EDD 02/27/2025 10:40 AM EST Clinical Support [facility] [place] [address] [place] [phone] 03/04/2025 7:00 AM EST Clinical Support [facility] [place] [facility] [address] [place] [phone] Nkechi Grajeda, EDD 03/04/2025 8:15 AM EST Clinical Support [facility] [place] [facility] [address] [place] [phone] Nkechi Grajeda, EDD 03/11/2025 7:00 AM EST Clinical Support [facility] [place] [facility] [address] [place] [phone] Nkechi Grajeda, RN 03/18/2025 7:00 AM EST Clinical Support [facility] [place] [facility] [address] [place] [phone] Nkechi Grajeda, RN 03/25/2025 7:00 AM EST Clinical Support [facility] [place] [facility] [address] [place] [phone] Nkechi Grajeda RN 04/01/2025 7:00 AM EST Clinical Support [facility] [place] [address] [phone] Nkechi Grajeda, EDD 04/01/2025 8:15 AM EST Clinical Support [facility] [place] [address] [phone] Nkechi Grajeda, EDD 04/08/2025 7:00 AM EST Clinical Support [facility] [address] [phone] Nkechi Grajeda, EDD 04/14/2025 9:25 AM EST Office Visit [facility] - [address] [facility] [address] [place] [address] Dillon Mendosa MD [address] [place] [address] [place] [address] 04/15/2025 7:00 AM EST Clinical Support [facility] [place] [address] [phone] Nkechi Grajeda RN 04/22/2025 7:00 AM EST Clinical Support [facility] [place] [address] [phone] Nkechi Grajeda RN 04/29/2025 7:00 AM EST Clinical Support [facility] [place] [address] [phone] Nkechi Grajeda RN 04/29/2025 8:15 AM EST Clinical Support [facility] [place] [address] [phone] Nkechi Grajeda, EDD 05/06/2025 7:00 AM EST Clinical Support [facility] [place] [address] [phone] Nkechi Grajeda, EDD 05/13/2025 7:00 AM EST Clinical Support [facility] [place] [facility] [address] [place] [phone] Nkechi Grajeda, EDD 05/20/2025 7:00 AM EST Clinical Support [facility] [place] [facility] [address] [place] [phone] Nkechi Grajeda, EDD 05/27/2025 7:00 AM EDT Clinical Support [facility] [address] [place] [phone] Nkechi Grajeda, EDD 05/27/2025 8:15 AM EDT Clinical Support [facility] [address] [place] [phone] Nkechi Grajeda, EDD 06/03/2025 7:00 AM EDT Clinical Support [facility] [address] [place] [phone] Nkechi Grajeda, EDD 06/10/2025 7:00 AM EDT Clinical Support [facility] [place] [facility] [address] [place] [phone] Nkechi Grajeda, EDD 06/17/2025 7:00 AM EDT Clinical Support [facility] [address] [place] [phone] Nkechi Grajeda, RN 06/24/2025 7:00 AM EDT Clinical Support [facility] [address] [place] [phone] Nkechi Grajeda, EDD 06/24/2025 8:15 AM EDT Clinical Support [facility] [address] [place] [phone] Nkechi Grajeda, RN 07/01/2025 7:00 AM EDT Clinical Support [facility] [place] [facility] [address] [place] [phone] Nkechi Grajeda, RN 07/08/2025 7:00 AM EDT Clinical Support [facility] [address] [phone] Nkechi Grajeda, EDD 07/15/2025 7:00 AM EDT Clinical Support [facility] [address] [phone] Nkechi Grajeda, EDD 07/22/2025 8:15 AM EDT Clinical Support [facility] [address] [phone] Nkechi Grajeda, EDD 08/19/2025 8:15 AM EDT Clinical Support [facility] [address] [phone] Nkechi Grajeda, EDD 09/16/2025 8:15 AM EDT Clinical Support [address] [address] Nkechi Grajeda, EDD 10/14/2025 8:15 AM EDT Clinical Support [address] [phone] Nkechi Grajeda, EDD 11/11/2025 8:15 AM EDT Clinical Support [address] [phone] Nkechi Grajeda, EDD 12/09/2025 8:15 AM EDT Clinical Support [address] [phone] Nkechi Grajeda, RN documented as of this encounter Visit Diagnoses Diagnosis Acute pain of right foot- Primary Encounter for adjustment or management of cardiac device documented in this encounter Care Teams Gear Grinding Machine Operator Relationship Specialty Start Date End Date Deloris Tobias NP [address] [place] [phone] PCP - General Family Medicine 12/01/24 documented as of this encounter
--- OUTSIDE RECORDS SUMMARY | 2024-12-16 04:25 | XMS_ITS | Encounter Summary ---
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 IDT to f/u. Encounter Details Date Type Department Care Team (Late st Contact Info) Description 11/08/2024 PACE On-Call [facility] [address] [place] [phone] Rich Mehta NP [address] [facility] 1 [place] [address] Social History Tobacco Use Types Packs/Day Years [...] In Home Nursing and Aide Services [address] [place] [address] Merlin Forbes 12/16/2024 11:00 AM EDT Office Visit [facility] [place] [facility] [address] [place] [phone] Deloris Tobias NP [address] [address] 12/16/2024 6:00 PM EDT PACE Home Care / PACE Home Visit [facility] [address] [place] [address] My Phillips 12/17/2024 7:00 AM EDT Clinical Support [facility] [address] [place] [phone] Nkechi Grajeda RN 12/17/2024 9:30 AM EDT PACE Home Care / PACE Home Visit [facility] [address] [place] [phone] Merlin Forbes 12/17/2024 11:00 AM EDT Treatment [facility] MA Occupational Therapy [address] [place] [phone] Tyler Ling OT 12/17/2024 6:00 PM EDT PACE Home Care / PACE Home Visit [facility] [address] [place] [phone] My Phillips 12/18/2024 10:00 AM EDT PACE Home Care / PACE Home Visit [facility] [address] [place] [phone] Merlin Forbes 12/18/2024 6:00 PM EDT PACE Home Care / PACE Home Visit [facility] [address] [place] [phone] My Phillips 12/19/2024 10:30 AM EDT PACE Home Care / PACE Home Visit [facility] [address] [place] [phone] Merlin Forbes 12/19/2024 6:00 PM EDT PACE Home Care / PACE Home Visit [facility] [address] [place] [phone] My Phillips 12/20/2024 9:00 AM EDT Appointment [address] [address] 12/20/2024 9:30 AM EDT PACE Home Care / PACE Home Visit [facility] [address] [place] [phone] Merlin Forbes 12/20/2024 6:00 PM EDT PACE Home Care / PACE Home Visit [facility] [address] [place] [phone] My Phillips 12/21/2024 8:30 AM EDT PACE Home Care / PACE Home Visit [facility] [address] [place] [phone] Anabelle Valdez 12/22/2024 8:30 AM EDT PACE Home Care / PACE Home Visit [facility] [address] [place] [phone] Anabelle Valdez 12/23/2024 9:30 AM EDT PACE Home Care / PACE Home Visit [facility] [address] [place] [phone] Merlin Forbes 12/23/2024 6:00 PM EDT PACE Home Care / PACE Home Visit [facility] [address] [place] [address] My Phillips 12/24/2024 7:00 AM EDT Clinical Support [facility] [address] [place] [phone] Nkechi Grajeda RN 12/24/2024 9:30 AM EDT PACE Home Care / PACE Home Visit [facility] [address] [place] [phone] Merlin Forbes 12/24/2024 6:00 PM EDT PACE Home Care / PACE Home Visit [facility] [address] [place] [phone] My Phillips 12/25/2024 10:00 AM EDT PACE Home Care / PACE Home Visit [facility] [address] [place] [phone] Merlin Forbes 12/25/2024 6:00 PM EDT PACE Home Care / PACE Home Visit [facility] [address] [place] [phone] My Phillips 12/26/2024 10:40 AM EDT Clinical Support [facility] [place] [address] [place] [address] 12/26/2024 6:00 PM EDT PACE Home Care / PACE Home Visit [facility] [address] [place] [phone] My Phillips 12/27/2024 9:30 AM EDT PACE Home Care / PACE Home Visit [facility] [address] [place] [phone] Merlin Forbes 12/27/2024 6:00 PM EDT PACE Home Care / PACE Home Visit [facility] [address] [place] [address] My Phillips 12/30/2024 9:30 AM EDT PACE Home Care / PACE Home Visit [facility] [address] [place] [phone] Merlin Forbes 12/30/2024 6:00 PM EDT PACE Home Care / PACE Home Visit [facility] [address] [place] [phone] My Phillips 12/31/2024 7:00 AM EDT Clinical Support [facility] [place] [facility] [address] [place] [phone] Nkechi Grajeda RN 12/31/2024 9:30 AM EDT PACE Home Care / PACE Home Visit [facility] [address] [place] [phone] Merlin Forbes 12/31/2024 10:00 AM EDT Ancillary Procedure [facility] [address] [facility] [address] [place] [address] 12/31/2024 6:00 PM EDT PACE Home Care / PACE Home Visit [facility] [address] [place] [phone] My Phillips 01/01/2025 10:00 AM EDT PACE Home Care / PACE Home Visit [facility] [address] [place] [phone] Merlin Forbes 01/01/2025 6:00 PM EDT PACE Home Care / PACE Home Visit [facility] [address] [place] [phone] My Phillips 01/02/2025 10:30 AM EDT PACE Home Care / PACE Home Visit [facility] [address] [place] [phone] Merlin Forbes 01/02/2025 3:00 PM EDT Clinical Support [facility] [address] [place] [phone] 01/02/2025 6:00 PM EDT PACE Home Care / PACE Home Visit [facility] [address] [place] [phone] My Phillips 01/03/2025 9:30 AM EDT PACE Home Care / PACE Home Visit [facility] [address] [place] [phone] Merlin Forbes 01/03/2025 6:00 PM EDT PACE Home Care / PACE Home Visit [facility] [address] [place] [phone] My Phillips 01/04/2025 8:30 AM EDT PACE Home Care / PACE Home Visit [facility] [address] [place] [phone] Anabelle Valdez 01/05/2025 8:30 AM EDT PACE Home Care / PACE Home Visit [facility] [address] [place] [phone] Anabelle Valdez 01/06/2025 9:30 AM EDT PACE Home Care / PACE Home Visit [facility] [address] [place] [phone] Merlin Forbes 01/06/2025 6:00 PM EDT PACE Home Care / PACE Home Visit [facility] [address] [place] [phone] My Phillips 01/07/2025 7:00 AM EDT Clinical Support [facility] [address] [place] [address] Nkechi Grajeda, EDD 01/07/2025 8:15 AM EDT Clinical Support [facility] [place] [facility] [address] [place] [address] Nkechi Grajeda, RN 01/07/2025 9:30 AM EDT PACE Home Care / PACE Home Visit [facility] [address] [place] [phone] Merlin Forbes 01/07/2025 6:00 PM EDT PACE Home Care / PACE Home Visit [facility] [address] [place] [phone] My Phillips 01/08/2025 10:00 AM EDT PACE Home Care / PACE Home Visit [facility] [address] [place] [phone] Merlin Forbes 01/08/2025 6:00 PM EDT PACE Home Care / PACE Home Visit [facility] [address] [place] [phone] My Phillips 01/09/2025 10:30 AM EDT PACE Home Care / PACE Home Visit [facility] [address] [place] [phone] Merlin Forbes 01/09/2025 6:00 PM EDT PACE Home Care / PACE Home Visit [facility] [address] [place] [phone] My Phillips 01/10/2025 9:30 AM EDT PACE Home Care / PACE Home Visit [facility] [address] [place] [address] Merlin Forbes 01/10/2025 10:00 AM EDT Clinical Support [facility] [place] [address] [place] [address] 01/10/2025 6:00 PM EDT PACE Home Care / PACE Home Visit [facility] [address] [place] [phone] My Phillips 01/13/2025 9:30 AM EDT PACE Home Care / PACE Home Visit [facility] [address] [place] [phone] Merlin Forbes 01/13/2025 6:00 PM EDT PACE Home Care / PACE Home Visit [facility] [address] [place] [phone] My Phillips 01/14/2025 7:00 AM EDT Clinical Support [facility] [place] [facility] [address] [place] [phone] Nkechi Grajeda RN 01/14/2025 9:30 AM EDT PACE Home Care / PACE Home Visit [facility] [address] [place] [phone] Merlin Forbes 01/14/2025 6:00 PM EDT PACE Home Care / PACE Home Visit [facility] [address] [place] [phone] My Phillips 01/15/2025 10:00 AM EDT PACE Home Care / PACE Home Visit [facility] [address] [place] [phone] Merlin Forbes 01/15/2025 6:00 PM EDT PACE Home Care / PACE Home Visit [facility] [address] [place] [phone] My Phillips 01/16/2025 10:30 AM EDT PACE Home Care / PACE Home Visit [facility] [address] [place] [phone] Merlin Forbes 01/16/2025 6:00 PM EDT PACE Home Care / PACE Home Visit [facility] [address] [place] [phone] My Phillips 01/17/2025 9:30 AM EDT PACE Home Care / PACE Home Visit [facility] [address] [place] [phone] Merlin Forbes 01/17/2025 6:00 PM EDT PACE Home Care / PACE Home Visit [facility] [address] [place] [phone] My Phillips 01/18/2025 8:30 AM EDT PACE Home Care / PACE Home Visit [facility] [address] [place] [phone] Anabelle Valdez 01/19/2025 8:30 AM EST PACE Home Care / PACE Home Visit [facility] [address] [place] [phone] Anabelle Valdez 01/20/2025 9:30 AM EST PACE Home Care / PACE Home Visit [facility] [address] [place] [phone] Merlin Forbes 01/20/2025 6:00 PM EST PACE Home Care / PACE Home Visit [facility] [address] [place] [phone] My Phillips 01/21/2025 7:00 AM EST Clinical Support [facility] [address] [place] [address] Nkechi Grajeda RN 01/21/2025 9:30 AM EST PACE Home Care / PACE Home Visit [facility] [address] [place] [address] Merlin Forbes 01/21/2025 10:45 AM EST Clinical Support [facility] [place] [address] [place] [address] 01/21/2025 6:00 PM EST PACE Home Care / PACE [facility] Visit [facility] [address] [place] [address] My Phillips 01/22/2025 10:00 AM EST PACE Home Care / PACE Home Visit [facility] [address] [place] [phone] Merlin Forbes 01/22/2025 6:00 PM EST PACE Home Care / PACE Home Visit [facility] [address] [place] [phone] My Phillips 01/23/2025 10:30 AM EST PACE Home Care / PACE Home Visit [facility] [address] [place] [phone] Merlin Forbes 01/23/2025 6:00 PM EST PACE Home Care / PACE Home Visit [facility] [address] [place] [phone] My Phillips 01/24/2025 9:30 AM EST PACE Home Care / PACE Home Visit [facility] [address] [place] [address] Merlin Forbes 01/24/2025 6:00 PM EST PACE Home Care / [facility] Home Visit [facility] [address] [place] [address] My Phillips 01/27/2025 9:30 AM EST PACE Home Care / PACE Home Visit [facility] [address] [place] [address] Merlin Forbes 01/27/2025 6:00 PM EST PACE Home Care / PACE Home Visit [facility] [address] [place] [address] My Phillips 01/28/2025 7:00 AM EST Clinical Support [facility] [place] [facility] [address] [place] [address] Nkechi Grajeda RN 01/28/2025 9:30 AM EST PACE Home Care / PACE Home Visit [facility] [address] [place] [phone] Merlin Forbes 01/28/2025 6:00 PM EST PACE Home Care / PACE Home Visit [facility] [address] [place] [phone] My Phillips 01/29/2025 10:00 AM EST PACE Home Care / PACE Home Visit [facility] [address] [place] [address] Merlin Forbes 01/29/2025 6:00 PM EST PACE Home Care / PACE Home Visit [facility] [address] [place] [address] My Phillips 01/30/2025 10:30 AM EST PACE Home Care / PACE Home Visit [facility] [address] [place] [address] Merlin Forbes 01/30/2025 6:00 PM EST PACE Home Care / [facility] Home Visit [facility] [address] [place] [address] My Phillips 01/31/2025 9:30 AM EST PACE Home Care / P[facility] Home Visit [facility] [address] [place] [address] Merlin Forbes 01/31/2025 11:00 AM EST PACE External Visit [facility] [place] [address] [place] [address] 01/31/2025 6:00 PM EST PACE Home Care / P[facility] Home Visit [facility] [address] [place] [phone] My Phillips 02/01/2025 8:30 AM EST PACE Home Care / PACE Home Visit [facility] [address] [place] [phone] Anabelle Valdez 02/02/2025 8:30 AM EST PACE Home Care / PACE Home Visit [facility] [address] [place] [phone] Anabelle Valdez 02/03/2025 9:30 AM EST PACE Home Care / PACE Home Visit [facility] [address] [place] [phone] Merlin Forbes 02/03/2025 6:00 PM EST PACE Home Care / PACE Home Visit [facility] [address] [place] [phone] My Phillips 02/04/2025 7:00 AM EST Clinical Support [facility] [place] [facility] [address] [place] [phone] Nkechi Grajeda RN 02/04/2025 8:15 AM EST Clinical Support [facility] [place] [facility] [address] [place] [phone] Nkechi Grajeda RN 02/04/2025 9:30 AM EST PACE Home Care / PACE Home Visit [facility] [place] [facility] [address] [place] [phone] Merlin Forbes 02/04/2025 6:00 PM EST PACE Home Care / PACE Home Visit [facility] [place] [facility] [address] [place] [phone] My Phillips 02/05/2025 10:00 AM EST PACE Home Care / PACE Home Visit [facility] [place] [facility] [address] [place] [phone] Merlin Forbes 02/05/2025 6:00 PM EST PACE Home Care / PACE Home Visit [facility] [place] [facility] [address] [place] [phone] My Phillips 02/06/2025 10:30 AM EST PACE Home Care / PACE Home Visit [facility] [place] [facility] [address] [place] [phone] Merlin Forbes 02/06/2025 6:00 PM EST PACE Home Care / PACE Home Visit [facility] [place] [facility] [address] [place] [phone] My Phillips 02/07/2025 9:30 AM EST PACE Home Care / PACE Home Visit [facility] [place] [facility] [address] [place] [phone] Merlin Forbes 02/07/2025 6:00 PM EST PACE Home Care / PACE Home Visit [facility] [place] [facility] [address] [place] [phone] My Phillips 02/10/2025 9:30 AM EST PACE Home Care / PACE Home Visit [facility] [place] [facility] [address] [place] [address] Merlin Forbes 02/10/2025 6:00 PM EST PACE Home Care / PACE Home Visit [facility] [address] [place] [address] My Phillips 02/11/2025 7:00 AM EST Clinical Support [facility] [place] [facility] [address] [place] [address] Nkechi Grajeda RN 02/11/2025 9:30 AM EST PACE Home Care / PACE Home Visit [facility] [address] [place] [address] Merlin Forbes 02/11/2025 6:00 PM EST PACE Home Care / PACE Home Visit [facility] [address] [place] [address] My Phillips 02/12/2025 10:00 AM EST PACE Home Care / PACE Home Visit [facility] [address] [place] [phone] Merlin Forbes 02/12/2025 6:00 PM EST PACE Home Care / PACE Home Visit [facility] [address] [place] [address] My Phillips 02/13/2025 10:30 AM EST PACE Home Care / PACE Home Visit [facility] [address] [place] [address] Merlin Forbes 02/13/2025 6:00 PM EST PACE Home Care / PACE Home Visit [facility] [address] [place] [address] My Phillips 02/18/2025 7:00 AM EST Clinical Support [facility] [place] [facility] [address] [place] [phone] Nkechi Grajeda, EDD 02/25/2025 7:00 AM EST Clinical Support [facility] [place] [facility] [address] [place] [phone] Nkechi Grajeda, EDD 02/27/2025 10:40 AM EST Clinical Support [facility] [place] [address] [place] [phone] 03/04/2025 7:00 AM EST Clinical Support [facility] [place] [facility] [address] [place] [phone] Nkechi Grajeda, EDD 03/04/2025 8:15 AM EST Clinical Support [facility] [place] [facility] [address] [place] [phone] Nkechi Grajeda, EDD 03/11/2025 7:00 AM EST Clinical Support [facility] [place] [facility] [address] [place] [phone] Nkechi Grajeda, EDD 03/18/2025 7:00 AM EST Clinical Support [facility] [place] [facility] [address] [place] [phone] Nkechi Grajeda, EDD 03/25/2025 7:00 AM EST Clinical Support [facility] [place] [facility] [address] [place] [phone] Nkechi Grajeda, EDD 04/01/2025 7:00 AM EST Clinical Support [facility] [place] [facility] [address] [place] [phone] Nkechi Grajeda, RN 04/01/2025 8:15 AM EST Clinical Support [facility] [place] [facility] [address] [place] [phone] Nkechi Grajeda, RN 04/08/2025 7:00 AM EST Clinical Support [facility] [place] [facility] [address] [place] [phone] Nkechi Grajeda, EDD 04/14/2025 9:25 AM EST Office Visit [facility] [address] [place] [phone] Dillon Mendosa MD [address] [place] [address] [place] [address] 04/15/2025 7:00 AM EST Clinical Support [facility] [place] [address] [address] Nkechi Grajeda, EDD 04/22/2025 7:00 AM EST Clinical Support [facility] [place] [facility] [address] [address] Nkechi Grajeda, EDD 04/29/2025 7:00 AM EST Clinical Support [facility] [place] [facility] [address] [address] Nkechi Grajeda, EDD 04/29/2025 8:15 AM EST Clinical Support [facility] [place] [facility] [address] [address] Nkechi Grajeda, EDD 05/06/2025 7:00 AM EST Clinical Support [facility] [place] [facility] [address] [address] Nkechi Grajeda, EDD 05/13/2025 7:00 AM EST Clinical Support [facility] [place] [address] [address] Nkechi Grajeda, EDD 05/20/2025 7:00 AM EST Clinical Support [facility] [place] [facility] [address] [address] Nkechi Grajeda, EDD 05/27/2025 7:00 AM EDT Clinical Support [facility] [place] [facility] [address] [address] Nkechi Grajeda, EDD 05/27/2025 8:15 AM EDT Clinical Support [facility] [address] [place] [phone] Nkechi Grajeda, EDD 06/03/2025 7:00 AM EDT Clinical Support [facility] [place] [facility] [address] [place] [phone] Nkechi Grajeda, EDD 06/10/2025 7:00 AM EDT Clinical Support [facility] [place] [facility] [address] [place] [phone] Nkechi Grajeda, EDD 06/17/2025 7:00 AM EDT Clinical Support [facility] [place] [facility] [address] [place] [phone] Nkechi Grajeda, EDD 06/24/2025 7:00 AM EDT Clinical Support [facility] [place] [facility] [address] [address] Nkechi Grajeda, EDD 06/24/2025 8:15 AM EDT Clinical Support [facility] [place] [address] [address] Nkechi Grajeda, EDD 07/01/2025 7:00 AM EDT Clinical Support [facility] [place] [facility] [address] [place] [phone] Nkechi Grajeda, EDD 07/08/2025 7:00 AM EDT Clinical Support [facility] [place] [facility] [address] [place] [phone] Nkechi Grajeda, EDD 07/15/2025 7:00 AM EDT Clinical Support [facility] [place] [facility] [address] [place] [phone] Nkechi Grajeda, EDD 07/22/2025 8:15 AM EDT Clinical Support [facility] [place] [facility] [address] [place] [phone] Nkechi Grajeda, EDD 08/19/2025 8:15 AM EDT Clinical Support [address] [address] Nkechi Grajeda RN 09/16/2025 8:15 AM EDT Clinical Support [address] [address] Nkechi Grajeda RN 10/14/2025 8:15 AM EDT Clinical Support [address] [address] Nkechi Grajeda RN 11/11/2025 8:15 AM EDT Clinical Support [address] [address] Nkechi Grajeda RN 12/09/2025 8:15 AM EDT Clinical Support [address] [address] Nkechi Grajeda, EDD documented as of this encounter Visit Diagnoses Not on filedocumented in this encounter Care Teams Firebrick Layer Relationship Specialty Start Date End Date Deloris Tobias NP [address] [place] [phone] PCP - General Family Medicine 12/01/24 documented as of this encounter
--- OUTSIDE RECORDS SUMMARY | 2024-12-16 04:26 | XMS_ITS | Encounter Summary ---
Author Organization [facility] Address [address] [place] [address] Care Team Providers Care Editor In Chief Newspaper Name Role Phone Deloris Tobias SHE[employer] MILL SUPERVISOR Primary Care Provider [phone] Encounter Details Date Type Department Care Team (Late st Contact Info) Description 12/09/2024 [facility] [address] [place] [address] Nora Mauricio RN Wound of left leg, subsequent encounter Social History Tobacco Use Types Packs/Day Years [...] 9:44 PM EDT Geronimo Mane RN * Ravenel Suicide Severity Rating Scale (Screener/Recent Self-Report) Question [...] [facility] [address] [place] [phone] Merlin Forbes 12/16/2024 11:00 AM EDT Office Visit [facility] [address] [place] [phone] Deloris Tobias NP [address] [address] 12/16/2024 6:00 PM EDT PACE Home Care / PACE Home Visit Emilee MAHONEY [facility] [address] [place] [phone] My Phillips 12/17/2024 7:00 AM EDT Clinical Support [facility] [address] [place] [phone] Nkechi Grajeda, EDD 12/17/2024 9:30 AM EDT PACE Home Care / PACE Home Visit Emilee [facility] [address] [place] [phone] Merlin Forbes 12/17/2024 11:00 AM EDT Treatment [facility] MAHONEY MA Occupational Therapy [address] [place] [phone] Tyler Ling OT 12/17/2024 6:00 PM EDT PACE Home Care / PACE Home Visit Emilee [facility] [address] [place] [phone] My Phillips 12/18/2024 10:00 AM EDT PACE Home Care / PACE Home Visit Emilee [facility]ONEY [facility] [address] [place] [phone] Merlin Forbes 12/18/2024 6:00 PM EDT PACE Home Care / PACE Home Visit Emilee MA[facility]ONEY [facility] [address] [place] [phone] My Phillips 12/19/2024 10:30 AM EDT PACE Home Care / PACE Home Visit Emilee MAHONEY [facility] [address] [place] [phone] Merlin Forbes 12/19/2024 6:00 PM EDT PACE Home Care / PACE Home Visit Emilee MAHONEY [facility] [address] [place] [phone] My Phillips 12/20/2024 9:00 AM EDT Appointment [address] [phone] 12/20/2024 9:30 AM EDT PACE Home Care / PACE Home Visit Emilee MAHONEY [facility] [address] [place] [phone] Merlin Forbes 12/20/2024 6:00 PM EDT PACE Home Care / PACE Home Visit Emilee [facility]ONEY [facility] [address] [place] [phone] My Phillips 12/21/2024 8:30 AM EDT PACE Home Care / PACE Home Visit Emilee [facility]ONE[facility] [address] [place] [phone] Anabelle Valdez 12/22/2024 8:30 AM EDT PACE Home Care / PACE Home Visit Emilee [facility] [address] [place] [address] Anabelle Valdez 12/23/2024 9:30 AM EDT PACE Home Care / PACE Home Visit Emilee MA[facility]ONE[facility] [address] [place] [address] Merlin Forbes 12/23/2024 6:00 PM EDT PACE Home Care / PACE Home Visit Emilee [facility]ONEY [facility] [address] [place] [phone] My Phillips 12/24/2024 7:00 AM EDT Clinical Support [facility] [address] [place] [phone] Nkechi Grajeda RN 12/24/2024 9:30 AM EDT PACE Home Care / PACE Home Visit Emilee [facility]ONE[facility] [address] [place] [phone] Merlin Forbes 12/24/2024 6:00 PM EDT PACE Home Care / PACE Home Visit Emilee MAHONEY [facility] [address] [place] [phone] My Phillips 12/25/2024 10:00 AM EDT PACE Home Care / PACE Home Visit Emilee [facility]ONEY [facility] [address] [place] [phone] Merlin Forbes 12/25/2024 6:00 PM EDT PACE Home Care / PACE Home Visit Emilee [facility]ONE[facility] [address] [place] [address] My Phillips 12/26/2024 10:40 AM EDT Clinical Support Emilee MAHONEY [place] [address] [place] [address] 12/26/2024 6:00 PM EDT PACE Home Care / PACE Home Visit Emilee [facility]ONEY [facility] [address] [place] [phone] My Phillips 12/27/2024 9:30 AM EDT PACE Home Care / PACE Home Visit Emilee MAHONEY [facility] [address] [place] [phone] Merlin Forbes 12/27/2024 6:00 PM EDT PACE Home Care / PACE Home Visit Emilee [facility]ONEY [facility] [address] [place] [phone] My Phillips 12/30/2024 9:30 AM EDT PACE Home Care / PACE Home Visit Emilee [facility]ONEY [facility] [address] [place] [phone] Merlin Forbes 12/30/2024 6:00 PM EDT PACE Home Care / PACE Home Visit Emilee MAHONEY [facility] [address] [place] [phone] My Phillips 12/31/2024 7:00 AM EDT Clinical Support [facility] [address] [place] [phone] Nkechi Grajeda RN 12/31/2024 9:30 AM EDT PACE Home Care / PACE Home Visit Emilee [facility]ONEY [facility] [address] [place] [phone] Merlin Forbes 12/31/2024 10:00 AM EDT Ancillary Procedure [facility] [address] [facility] [address] [place] [address] 12/31/2024 6:00 PM EDT PACE Home Care / PACE Home Visit Emilee MAHONEY [facility] [address] [place] [address] My Phillips 01/01/2025 10:00 AM EDT PACE Home Care / PACE Home Visit Emilee [facility]ONE[facility] [address] [place] [address] Merlin Forbes 01/01/2025 6:00 PM EDT PACE Home Care / PACE Home Visit Emilee [facility]ONE[facility] [address] [place] [address] My Phillips 01/02/2025 10:30 AM EDT PACE Home Care / PACE Home Visit Emilee [facility]ONEY [facility] [address] [place] [phone] Merlin Forbes 01/02/2025 3:00 PM EDT Clinical Support Emilee MAHONEY MA [address] [place] [phone] 01/02/2025 6:00 PM EDT PACE Home Care / PACE Home Visit Emilee [facility]ONEY [facility] [address] [place] [phone] My Phillips 01/03/2025 9:30 AM EDT PACE Home Care / PACE Home Visit Emilee MAHONEY [facility] [address] [place] [phone] Merlin Forbes 01/03/2025 6:00 PM EDT PACE Home Care / PACE Home Visit Emilee [facility]ONEY [facility] [address] [place] [phone] My Phillips 01/04/2025 8:30 AM EDT PACE Home Care / PACE Home Visit Emilee [facility]ONE[facility] [address] [place] [phone] Anabelle Valdez 01/05/2025 8:30 AM EDT PACE Home Care / PACE Home Visit Emilee [facility] [address] [place] [phone] Anabelle Valdez 01/06/2025 9:30 AM EDT PACE Home Care / PACE Home Visit Emilee [facility]ONE[facility] [address] [place] [address] Merlin Forbes 01/06/2025 6:00 PM EDT PACE Home Care / PACE Home Visit Emilee [facility]ONEY [facility] [address] [place] [phone] My Phillips 01/07/2025 7:00 AM EDT Clinical Support [facility] [address] [place] [phone] Nkechi Grajeda, EDD 01/07/2025 8:15 AM EDT Clinical Support [facility] [address] [place] [phone] Nkechi Grajeda, EDD 01/07/2025 9:30 AM EDT PACE Home Care / PACE Home Visit Emilee [facility] [address] [place] [phone] Merlin Forbes 01/07/2025 6:00 PM EDT PACE Home Care / PACE Home Visit Emilee [facility]ONEY [facility] [address] [place] [phone] My Phillips 01/08/2025 10:00 AM EDT PACE Home Care / PACE Home Visit Emilee [facility]ONEY [facility] [address] [place] [phone] Merlin Forbes 01/08/2025 6:00 PM EDT PACE Home Care / PACE Home Visit Emilee [facility]ONEY [facility] [address] [place] [phone] My Phillips 01/09/2025 10:30 AM EDT PACE Home Care / PACE Home Visit Emilee MAHONEY [facility] [address] [place] [address] Merlin Forbes 01/09/2025 6:00 PM EDT PACE Home Care / PACE Home Visit Emiele MAHONEY [facility] [address] [place] [phone] My Phillips 01/10/2025 9:30 AM EDT PACE Home Care / PACE Home Visit Emilee [facility]ONEY [facility] [address] [place] [phone] Merlin Forbes 01/10/2025 10:00 AM EDT Clinical Support Emilee MAHONEY MA [address] [place] [phone] 01/10/2025 6:00 PM EDT PACE Home Care / PACE Home Visit Emilee MAHONEY [facility] [address] [place] [phone] My Phillips 01/13/2025 9:30 AM EDT PACE Home Care / PACE Home Visit Emilee MAHONEY [facility] [address] [place] [phone] Merlin Forbes 01/13/2025 6:00 PM EDT PACE Home Care / PACE Home Visit Emilee [facility]HONEY [facility] [address] [place] [phone] My Phillips 01/14/2025 7:00 AM EDT Clinical Support [facility] [address] [place] [phone] Nkechi Grajeda, EDD 01/14/2025 9:30 AM EDT PACE Home Care / PACE Home Visit Emilee [facility] [address] [place] [phone] Merlin Forbes 01/14/2025 6:00 PM EDT PACE Home Care / PACE Home Visit Emilee [facility] [address] [place] [phone] My Phillips 01/15/2025 10:00 AM EDT PACE Home Care / PACE Home Visit Emilee [facility]HONEY [facility] [address] [place] [phone] Merlin Forbes 01/15/2025 6:00 PM EDT PACE Home Care / PACE Home Visit Emilee [facility]ONEY [facility] [address] [place] [phone] My Phillips 01/16/2025 10:30 AM EDT PACE Home Care / PACE Home Visit Emilee [facility]ONEY [facility] [address] [place] [phone] Merlin Forbes 01/16/2025 6:00 PM EDT PACE Home Care / PACE Home Visit Emilee MAHONEY [facility] [address] [place] [phone] My Phillips 01/17/2025 9:30 AM EDT PACE Home Care / PACE Home Visit Emilee [facility]HONEY [facility] [address] [place] [phone] Merlin Forbes 01/17/2025 6:00 PM EDT PACE Home Care / PACE Home Visit Emilee MAHONEY [facility] [address] [place] [phone] My Phillips 01/18/2025 8:30 AM EDT PACE Home Care / PACE Home Visit Emilee [facility]Y [facility] [address] [place] [phone] Anabelle Valdez 01/19/2025 8:30 AM EST PACE Home Care / PACE Home Visit Emilee [facility] [address] [place] [phone] Anabelle Valdez 01/20/2025 9:30 AM EST PACE Home Care / PACE Home Visit Emilee [facility]ONEY [facility] [address] [place] [address] Merlin Forbes 01/20/2025 6:00 PM EST PACE Home Care / PACE Home Visit Emilee [facility]Y [facility] [address] [place] [address] My Phillips 01/21/2025 7:00 AM EST Clinical Support [facility] [address] [place] [address] Nkechi Grajeda RN 01/21/2025 9:30 AM EST PACE Home Care / PACE Home Visit Emilee [facility] [address] [place] [address] Merlin Forbes 01/21/2025 10:45 AM EST Clinical Support Emilee MAHONEY MA [address] [place] [address] 01/21/2025 6:00 PM EST PACE Home Care / PACE Home Visit Emilee MAHONEY [facility] [address] [place] [address] My Phillips 01/22/2025 10:00 AM EST PACE Home Care / PACE Home Visit Emilee [facility]Y [facility] [address] [place] [address] Merlin Forbes 01/22/2025 6:00 PM EST PACE Home Care / PACE Home Visit Emilee [facility]ONEY [facility] [address] [place] [phone] My Phillips 01/23/2025 10:30 AM EST PACE Home Care / PACE Home Visit Emilee MAHONEY [facility] [address] [place] [address] Merlin Forbes 01/23/2025 6:00 PM EST PACE Home Care / PACE Home Visit [facility] [place] [facility] [address] [place] [address] My Phillips 01/24/2025 9:30 AM EST PACE Home Care / PACE Home Visit Emilee MAHONEY [facility] [address] [place] [address] Merlin Forbes 01/24/2025 6:00 PM EST PACE Home Care / PACE Home Visit Emilee [facility] [address] [place] [address] My Phillips 01/27/2025 9:30 AM EST PACE Home Care / PACE Home Visit Emilee MAHONEY [facility] [address] [place] [phone] Merlin Forbes 01/27/2025 6:00 PM EST PACE Home Care / PACE Home Visit Emilee MAHONEY [facility] [address] [place] [address] My Phillips 01/28/2025 7:00 AM EST Clinical Support [facility] [address] [place] [phone] Nkechi Grajeda RN 01/28/2025 9:30 AM EST PACE Home Care / PACE Home Visit Emilee [facility] [address] [place] [phone] Merlin Forbes 01/28/2025 6:00 PM EST PACE Home Care / PACE Home Visit Emilee MA[facility]ONEY [facility] [address] [place] [phone] My Phillips 01/29/2025 10:00 AM EST PACE Home Care / PACE Home Visit Emilee [facility]ONEY [facility] [address] [place] [address] Merlin Forbes 01/29/2025 6:00 PM EST PACE Home Care / PACE Home Visit [facility] [place] [facility] [address] [place] [address] My Phillips 01/30/2025 10:30 AM EST PACE Home Care / PACE Home Visit [facility] [place] [facility] [address] [place] [address] Merlin Forbes 01/30/2025 6:00 PM EST PACE Home Care / PACE Home Visit [facility] [place] [facility] [address] [place] [address] My Phillips 01/31/2025 9:30 AM EST PACE Home Care / PACE Home Visit [facility] [place] [facility] [address] [place] [address] Merlin Forbes 01/31/2025 11:00 AM EST PACE External Visit [facility] [place] [address] [place] [address] 01/31/2025 6:00 PM EST PACE Home Care / PACE Home Visit [facility] [address] [place] [address] My Phillips 02/01/2025 8:30 AM EST PACE Home Care / PACE Home Visit [facility] [place] [facility] [address] [place] [address] Anabelle Valdez 02/02/2025 8:30 AM EST PACE Home Care / PACE Home Visit [facility] [place] [facility] [address] [place] [phone] Anabelle Valdez 02/03/2025 9:30 AM EST PACE Home Care / PACE Home Visit [facility] [place] [facility] [address] [place] [address] Merlin Forbes 02/03/2025 6:00 PM EST PACE Home Care / PACE Home Visit [facility] [place] [facility] [address] [place] [address] My Phillips 02/04/2025 7:00 AM EST Clinical Support [facility] [place] [facility] [address] [place] [address] Nkechi Grajeda, EDD 02/04/2025 8:15 AM EST Clinical Support [facility] [place] [facility] [address] [place] [address] Nkechi Grajeda, EDD 02/04/2025 9:30 AM EST PACE Home Care / PACE Home Visit Emilee [facility] [address] [place] [phone] Merlin Forbes 02/04/2025 6:00 PM EST PACE Home Care / PACE Home Visit Emilee [facility]Y [facility] [address] [place] [phone] My Phillips 02/05/2025 10:00 AM EST PACE Home Care / PACE Home Visit Emilee [facility] [address] [place] [phone] Merlin Forbes 02/05/2025 6:00 PM EST PACE Home Care / PACE Home Visit Emilee MA[facility]Y [facility] [address] [place] [phone] My Phillips 02/06/2025 10:30 AM EST PACE Home Care / PACE Home Visit Emilee [facility] [address] [place] [phone] Merlin Forbes 02/06/2025 6:00 PM EST PACE Home Care / PACE Home Visit Emilee [facility] [address] [place] [address] My Phillips 02/07/2025 9:30 AM EST PACE Home Care / PACE Home Visit [facility] [place] [facility] [address] [place] [address] Merlin Forbes 02/07/2025 6:00 PM EST PACE Home Care / PACE Home Visit Emilee [facility] [address] [place] [address] My Phillips 02/10/2025 9:30 AM EST PACE Home Care / PACE Home Visit Emilee [facility] [address] [place] [address] Merlin Forbes 02/10/2025 6:00 PM EST PACE Home Care / PACE Home Visit Emilee [facility] [address] [place] [phone] My Phillips 02/11/2025 7:00 AM EST Clinical Support [facility] [place] [facility] [address] [place] [address] Nkechi Grajeda RN 02/11/2025 9:30 AM EST PACE Home Care / PACE Home Visit Emilee [facility] [address] [place] [phone] Merlin Forbes 02/11/2025 6:00 PM EST PACE Home Care / PACE Home Visit Emilee [facility]Y [facility] [address] [place] [phone] My Phillips 02/12/2025 10:00 AM EST PACE Home Care / PACE Home Visit Emilee [facility] [address] [place] [address] Merlin Forbes 02/12/2025 6:00 PM EST PACE Home Care / PACE Home Visit Em[facility] [address] [place] [address] My Phillips 02/13/2025 10:30 AM EST PACE Home Care / PACE Home Visit [facility] [place] [facility] [address] [place] [phone] Merlin Forbes 02/13/2025 6:00 PM EST PACE Home Care / PACE Home Visit [facility] [address] [place] [phone] My Phillips 02/18/2025 7:00 AM EST Clinical Support [facility] [place] [facility] [address] [place] [phone] Nkechi Grajeda, EDD 02/25/2025 7:00 AM EST Clinical Support [facility] [place] [facility] [address] [place] [phone] Nkechi Grajeda, EDD 02/27/2025 10:40 AM EST Clinical Support [facility] [place] [address] [place] [phone] 03/04/2025 7:00 AM EST Clinical Support [facility] [place] [facility] [address] [place] [phone] Nkechi Grajeda, EDD 03/04/2025 8:15 AM EST Clinical Support [facility] [place] [facility] [address] [place] [phone] Nkechi Grajeda, EDD 03/11/2025 7:00 AM EST Clinical Support [facility] [place] [facility] [address] [place] [phone] Nkechi Grajeda, EDD 03/18/2025 7:00 AM EST Clinical Support [facility] [place] [facility] [address] [place] [phone] Nkechi Grajeda, RN 03/25/2025 7:00 AM EST Clinical Support [facility] [place] [facility] [address] [place] [phone] Nkechi Grajeda, RN 04/01/2025 7:00 AM EST Clinical Support [facility] [place] [facility] [address] [place] [address] Nkechi Grajeda, EDD 04/01/2025 8:15 AM EST Clinical Support [facility] [place] [address] [address] Nkechi Grajeda, EDD 04/08/2025 7:00 AM EST Clinical Support [facility] [address] [address] Nkechi Grajeda, EDD 04/14/2025 9:25 AM EST Office Visit [facility] [address] [place] [address] Dillon Mendosa MD [address] [place] [address] [place] [address] 04/15/2025 7:00 AM EST Clinical Support [facility] [place] [address] [address] Nkechi Grajeda, EDD 04/22/2025 7:00 AM EST Clinical Support [facility] [place] [address] [address] Nkechi Grajeda, EDD 04/29/2025 7:00 AM EST Clinical Support [facility] [place] [address] [address] Nkechi Grajeda, EDD 04/29/2025 8:15 AM EST Clinical Support [facility] [place] [address] [address] Nkechi Grajeda, EDD 05/06/2025 7:00 AM EST Clinical Support [facility] [place] [facility] [address] [address] Nkechi Grajeda, EDD 05/13/2025 7:00 AM EST Clinical Support [facility] [place] [facility] [address] [address] Nkechi Grajeda, EDD 05/20/2025 7:00 AM EST Clinical Support [facility] [place] [facility] [address] [place] [phone] Nkechi Grajeda, EDD 05/27/2025 7:00 AM EDT Clinical Support [facility] [place] [facility] [address] [place] [phone] Nkechi Grajeda, EDD 05/27/2025 8:15 AM EDT Clinical Support [facility] [place] [facility] [address] [place] [phone] Nkechi Grajeda, EDD 06/03/2025 7:00 AM EDT Clinical Support [facility] [address] [place] [phone] Nkechi Grajeda, EDD 06/10/2025 7:00 AM EDT Clinical Support [facility] [place] [facility] [address] [address] Nkechi Grajeda, EDD 06/17/2025 7:00 AM EDT Clinical Support [facility] [place] [facility] [address] [place] [phone] Nkechi Grajeda, EDD 06/24/2025 7:00 AM EDT Clinical Support [facility] [place] [facility] [address] [place] [phone] Nkechi Grajeda, EDD 06/24/2025 8:15 AM EDT Clinical Support [facility] [place] [facility] [address] [place] [phone] Nkechi Grajeda, RN 07/01/2025 7:00 AM EDT Clinical Support [facility] [place] [facility] [address] [place] [phone] Nkechi Grajeda, EDD 07/08/2025 7:00 AM EDT Clinical Support [facility] [place] [facility] [address] [place] [phone] Nkechi Grajeda, EDD 07/15/2025 7:00 AM EDT Clinical Support [facility] [address] [address] Nkechi Grajeda, EDD 07/22/2025 8:15 AM EDT Clinical Support [address] [address] Nkechi Grajeda, EDD 08/19/2025 8:15 AM EDT Clinical Support [address] [address] Nkechi Grajeda, EDD 09/16/2025 8:15 AM EDT Clinical Support [address] [address] Nkechi Grajeda RN 10/14/2025 8:15 AM EDT Clinical Support [address] [address] Nkechi Grajeda RN 11/11/2025 8:15 AM EDT Clinical Support [address] [address] Nkechi Grajeda, EDD 12/09/2025 8:15 AM EDT Clinical Support [address] [address] Nkechi Grajeda, EDD documented as of this encounter Visit Diagnoses Diagnosis Wound of left leg, subsequent encounter Encounter for adjustment or management of cardiac device documented in this encounter Orders PACE Service Orderables Count Last Ordered Date First Ordered Date [facility] NURSING SERVICES 12/07/2024 documented in this encounter Care Teams Editor In Chief Newspaper Relationship Specialty Start Date End Date Deloris Tobias NP [address] [place] [phone] PCP - General Family Medicine 12/01/24 documented as of this encounter
--- OUTSIDE RECORDS SUMMARY | 2024-12-16 04:26 | XMS_ITS | Encounter Summary ---
Author Organization [facility] Address [address] [place] [address] Care Team Providers Care Classer Name Role Phone Deloris Tobias [employer] LEADER Primary Care Provider [phone] Encounter Details Date Type Department Care Team (Late st Contact Info) Description 12/13/2024 Plan of Care Documentation [facility] [address] [place] [phone] Social History Tobacco Use Types Packs/Day Years [...] In [facility] [address] [place] [address] Merlin Forbes 12/16/2024 11:00 AM EDT Office Visit [facility] [address] [place] [phone] Deloris Tobias, JOHNATHAN [address] [address] 12/16/2024 6:00 PM EDT PACE Home Care / PACE Home Visit Emilee [facility] [address] [place] [phone] My Phillips 12/17/2024 7:00 AM EDT Clinical Support [facility] [address] [place] [phone] Nkechi Grajeda RN 12/17/2024 9:30 AM EDT PACE Home Care / PACE Home Visit Emilee [facility] [address] [place] [phone] Merlin Forbes 12/17/2024 11:00 AM EDT Treatment Emilee MAHONEY MA Occupational Therapy [address] [place] [phone] Tyler Ling OT 12/17/2024 6:00 PM EDT PACE Home Care / PACE Home Visit [facility] [address] [place] [phone] My Phillips 12/18/2024 10:00 AM EDT PACE Home Care / PACE Home Visit Em[facility] [address] [place] [phone] Merlin Forbes 12/18/2024 6:00 PM EDT PACE Home Care / PACE Home Visit Emilee [facility] [address] [place] [phone] My Phillips 12/19/2024 10:30 AM EDT PACE Home Care / PACE Home Visit Emilee [facility] [address] [place] [phone] Merlin Forbes 12/19/2024 6:00 PM EDT PACE Home Care / PACE Home Visit Em[facility] [address] [place] [phone] My Phillips 12/20/2024 9:00 AM EDT Appointment [address] [phone] 12/20/2024 9:30 AM EDT PACE Home Care / PACE Home Visit Emilee [facility] [address] [place] [phone] Merlin Forbes 12/20/2024 6:00 PM EDT PACE Home Care / PACE Home Visit Emilee [facility] [address] [place] [phone] My Phillips 12/21/2024 8:30 AM EDT PACE Home Care / PACE Home Visit Em[facility] [address] [place] [phone] Anabelle Valdez 12/22/2024 8:30 AM EDT PACE Home Care / PACE Home Visit Em[facility] [address] [place] [phone] Anabelle Valdez 12/23/2024 9:30 AM EDT PACE Home Care / PACE Home Visit [facility] [address] [place] [phone] Merlin Forbes 12/23/2024 6:00 PM EDT PACE Home Care / PACE Home Visit Emilee [facility] [address] [place] [phone] My Phillips 12/24/2024 7:00 AM EDT Clinical Support [facility] [address] [place] [address] Nkechi Grajeda RN 12/24/2024 9:30 AM EDT PACE Home Care / PACE Home Visit Emilee [facility] [address] [place] [phone] Merlin Forbes 12/24/2024 6:00 PM EDT PACE Home Care / PACE Home Visit Emilee [facility] [address] [place] [phone] My Phillips 12/25/2024 10:00 AM EDT PACE Home Care / PACE Home Visit [facility] [address] [place] [phone] Merlin Forbes 12/25/2024 6:00 PM EDT PACE Home Care / PACE Home Visit Emilee [facility] [address] [place] [phone] My Phillips 12/26/2024 10:40 AM EDT Clinical Support Emilee [facility] [address] [place] [address] 12/26/2024 6:00 PM EDT PACE Home Care / PACE Home Visit Emilee [facility] [address] [place] [phone] My Phillips 12/27/2024 9:30 AM EDT PACE Home Care / PACE Home Visit Emilee [facility] [address] [place] [phone] Merlin Forbes 12/27/2024 6:00 PM EDT PACE Home Care / PACE Home Visit Emilee [facility] [address] [place] [phone] My Phillips 12/30/2024 9:30 AM EDT PACE Home Care / PACE Home Visit Emilee [facility] [address] [place] [phone] Merlin Forbes 12/30/2024 6:00 PM EDT PACE Home Care / PACE Home Visit Emilee [facility] [address] [place] [phone] My Phillips 12/31/2024 7:00 AM EDT Clinical Support [facility] [address] [place] [phone] Nkechi Grajeda RN 12/31/2024 9:30 AM EDT PACE Home Care / PACE Home Visit Emilee [facility] [address] [place] [phone] Merlin Forbes 12/31/2024 10:00 AM EDT Ancillary Procedure [facility] [address] [place] [address] 12/31/2024 6:00 PM EDT PACE Home Care / PACE Home Visit Emilee [facility] [address] [place] [phone] My Phillips 01/01/2025 10:00 AM EDT PACE Home Care / PACE Home Visit Emilee [facility] [address] [place] [phone] Merlin Forbes 01/01/2025 6:00 PM EDT PACE Home Care / PACE Home Visit Emilee [facility] [address] [place] [phone] My Phillips 01/02/2025 10:30 AM EDT PACE Home Care / PACE Home Visit Emilee [facility] [address] [place] [phone] Merlin Forbes 01/02/2025 3:00 PM EDT Clinical Support Emilee [facility]HONEY [facility] [address] [place] [address] 01/02/2025 6:00 PM EDT PACE Home Care / PACE Home Visit Em[facility] [address] [place] [phone] My Phillips 01/03/2025 9:30 AM EDT PACE Home Care / PACE Home Visit [facility] [address] [place] [phone] Merlin Forbes 01/03/2025 6:00 PM EDT PACE Home Care / PACE Home Visit [facility] [address] [place] [phone] My Phillips 01/04/2025 8:30 AM EDT PACE Home Care / PACE Home Visit Em[facility] [address] [place] [phone] Anabelle Valdez 01/05/2025 8:30 AM EDT PACE Home Care / PACE Home Visit [facility] [address] [place] [phone] Anabelle Valdez 01/06/2025 9:30 AM EDT PACE Home Care / PACE Home Visit [facility] [address] [place] [phone] Merlin Forbes 01/06/2025 6:00 PM EDT PACE Home Care / PACE Home Visit [facility] [address] [place] [phone] My Phillips 01/07/2025 7:00 AM EDT Clinical Support [facility] [address] [place] [phone] Nkechi Grajeda RN 01/07/2025 8:15 AM EDT Clinical Support [facility] [address] [place] [phone] Nkechi Grajeda RN 01/07/2025 9:30 AM EDT PACE Home Care / PACE Home Visit [facility] [address] [place] [phone] Merlin Forbes 01/07/2025 6:00 PM EDT PACE Home Care / PACE Home Visit [facility] [address] [place] [phone] My Phillips 01/08/2025 10:00 AM EDT PACE Home Care / PACE Home Visit [facility] [address] [place] [phone] Merlin Forbes 01/08/2025 6:00 PM EDT PACE Home Care / PACE Home Visit [facility] [address] [place] [phone] My Phillips 01/09/2025 10:30 AM EDT PACE Home Care / PACE Home Visit [facility] [address] [place] [phone] Merlin Forbes 01/09/2025 6:00 PM EDT PACE Home Care / PACE Home Visit [facility] [address] [place] [phone] My Phillips 01/10/2025 9:30 AM EDT PACE Home Care / PACE Home Visit [facility] [address] [place] [phone] Merlin Forbes 01/10/2025 10:00 AM EDT Clinical Support Emilee [facility]Y [facility] [address] [place] [phone] 01/10/2025 6:00 PM EDT PACE Home Care / PACE Home Visit [facility] [address] [place] [address] My Phillips 01/13/2025 9:30 AM EDT PACE Home Care / PACE Home Visit [facility] [address] [place] [address] Merlin Forbes 01/13/2025 6:00 PM EDT PACE Home Care / PACE Home Visit [facility] [address] [place] [phone] My Phillips 01/14/2025 7:00 AM EDT Clinical Support [facility] [address] [place] [phone] Nkechi Grajeda RN 01/14/2025 9:30 AM EDT PACE Home Care / PACE Home Visit [facility] [address] [place] [phone] Merlin Forbes 01/14/2025 6:00 PM EDT PACE Home Care / PACE Home Visit [facility] [address] [place] [phone] My Phillips 01/15/2025 10:00 AM EDT PACE Home Care / PACE Home Visit [facility] [address] [place] [address] Merlin Forbes 01/15/2025 6:00 PM EDT PACE Home Care / PACE Home Visit [facility] [address] [place] [phone] My Phillips 01/16/2025 10:30 AM EDT PACE Home Care / PACE Home Visit [facility] [address] [place] [phone] Merlin Forbes 01/16/2025 6:00 PM EDT PACE Home Care / PACE Home Visit [facility] [address] [place] [address] My Phillips 01/17/2025 9:30 AM EDT PACE Home Care / PACE Home Visit [facility] [address] [place] [address] Merlin Forbes 01/17/2025 6:00 PM EDT PACE Home Care / PACE Home Visit [facility] [address] [place] [phone] My Phillips 01/18/2025 8:30 AM EDT PACE Home Care / PACE Home Visit [facility] [address] [place] [phone] Anabelle Valdez 01/19/2025 8:30 AM EST PACE Home Care / PACE Home Visit [facility] [address] [place] [phone] Anabelle Valdez 01/20/2025 9:30 AM EST PACE Home Care / PACE Home Visit [facility] [address] [place] [phone] Merlin Forbes 01/20/2025 6:00 PM EST PACE Home Care / PACE Home Visit [facility] [address] [place] [phone] My Phillips 01/21/2025 7:00 AM EST Clinical Support [facility] [address] [place] [phone] Nkechi Grajeda RN 01/21/2025 9:30 AM EST PACE Home Care / PACE Home Visit [facility] [address] [place] [phone] Merlin Forbes 01/21/2025 10:45 AM EST Clinical Support [facility] [place] [address] [place] [address] 01/21/2025 6:00 PM EST PACE Home Care / PACE Home Visit [facility] [address] [place] [phone] My Phillips 01/22/2025 10:00 AM EST PACE Home Care / PACE Home Visit [facility] [address] [place] [phone] Merlin Forbes 01/22/2025 6:00 PM EST PACE Home Care / PACE Home Visit [facility] [address] [place] [phone] My Phillips 01/23/2025 10:30 AM EST PACE Home Care / PACE Home Visit [facility] [address] [place] [phone] Merlin Forbes 01/23/2025 6:00 PM EST PACE Home Care / PACE Home Visit [facility] [address] [place] [phone] My Phillips 01/24/2025 9:30 AM EST PACE Home Care / PACE Home Visit [facility] [address] [place] [phone] Merlin Forbes 01/24/2025 6:00 PM EST PACE Home Care / PACE Home Visit [facility] [address] [place] [phone] My Phillips 01/27/2025 9:30 AM EST PACE Home Care / PACE Home Visit [facility] [address] [place] [phone] Merlin Forbes 01/27/2025 6:00 PM EST PACE Home Care / PACE Home Visit [facility] [address] [place] [address] My Phillips 01/28/2025 7:00 AM EST Clinical Support [facility] [address] [place] [address] Nkechi Grajeda RN 01/28/2025 9:30 AM EST PACE Home Care / PACE Home Visit [facility] [address] [place] [phone] Merlin Forbes 01/28/2025 6:00 PM EST PACE Home Care / PACE Home Visit [facility] [address] [place] [phone] My Phillips 01/29/2025 10:00 AM EST PACE Home Care / PACE Home Visit [facility] [address] [place] [address] Merlin Forbes 01/29/2025 6:00 PM EST PACE Home Care / PACE Home Visit [facility] [address] [place] [phone] My Phillips 01/30/2025 10:30 AM EST PACE Home Care / PACE Home Visit [facility] [address] [place] [phone] Merlin Forbes 01/30/2025 6:00 PM EST PACE Home Care / PACE Home Visit [facility] [address] [place] [address] My Phillips 01/31/2025 9:30 AM EST PACE Home Care / PACE Home Visit [facility] [address] [place] [address] Merlin Forbes 01/31/2025 11:00 AM EST PACE External Visit [facility] [place] [address] [place] [address] 01/31/2025 6:00 PM EST PACE Home Care / PACE Home Visit [facility] [address] [place] [phone] My Phillips 02/01/2025 8:30 AM EST PACE Home Care / PACE Home Visit [facility] [address] [place] [phone] Anabelle Valdez 02/02/2025 8:30 AM EST PACE Home Care / PACE Home Visit [facility] [address] [place] [phone] Anabelle Valdez 02/03/2025 9:30 AM EST PACE Home Care / PACE Home Visit [facility] [address] [place] [phone] Merlin Forbes 02/03/2025 6:00 PM EST PACE Home Care / PACE Home Visit [facility] [address] [place] [phone] My Phillips 02/04/2025 7:00 AM EST Clinical Support [facility] [place] [facility] [address] [place] [phone] Nkechi Grajeda, EDD 02/04/2025 8:15 AM EST Clinical Support [facility] [place] [facility] [address] [place] [phone] Nkechi Grajeda, EDD 02/04/2025 9:30 AM EST PACE Home Care / PACE Home Visit [facility] [address] [place] [phone] Merlin Forbes 02/04/2025 6:00 PM EST PACE Home Care / P[facility] Home Visit [facility] [place] [facility] [address] [place] [phone] My Phillips 02/05/2025 10:00 AM EST PACE Home Care / P[facility] Home Visit [facility] [place] [facility] [address] [place] [address] Merlin Forbes 02/05/2025 6:00 PM EST PACE Home Care / PACE Home Visit [facility] [address] [place] [phone] My Phillips 02/06/2025 10:30 AM EST PACE Home Care / P[facility] Home Visit [facility] [address] [place] [phone] Merlin Forbes 02/06/2025 6:00 PM EST PACE Home Care / [facility] Visit [facility] [address] [place] [phone] My Phillips 02/07/2025 9:30 AM EST PACE Home Care / [facility] Visit [facility] [address] [place] [phone] Merlin Forbes 02/07/2025 6:00 PM EST PACE Home Care / P[facility] Home Visit [facility] [address] [place] [phone] My Phillips 02/10/2025 9:30 AM EST PACE Home Care / P[facility] Home Visit [facility] [address] [place] [phone] Merlin Forbes 02/10/2025 6:00 PM EST PACE Home Care / [facility] Visit [facility] [address] [place] [phone] My Phillips 02/11/2025 7:00 AM EST Clinical Support [facility] [address] [place] [phone] Nkechi Grajeda RN 02/11/2025 9:30 AM EST PACE Home Care / [facility] Home Visit [facility] [address] [place] [phone] Merlin Forbes 02/11/2025 6:00 PM EST PACE Home Care / [facility] Home Visit [facility] [address] [place] [phone] My Phillips 02/12/2025 10:00 AM EST PACE Home Care / [facility] Home Visit [facility] [address] [place] [phone] Merlin Forbes 02/12/2025 6:00 PM EST PACE Home Care / P[facility] Home Visit [facility] [address] [place] [phone] My Phillips 02/13/2025 10:30 AM EST PACE Home Care / P[facility] Home Visit [facility] [address] [place] [phone] Merlin Forbes 02/13/2025 6:00 PM EST PACE Home Care / P[facility] Visit [facility] [address] [place] [phone] My Phillips 02/18/2025 7:00 AM EST Clinical Support [facility] [address] [place] [phone] Nkechi Grajeda RN 02/25/2025 7:00 AM EST Clinical Support [facility] [address] [place] [phone] Nkechi Grajeda, EDD 02/27/2025 10:40 AM EST Clinical Support [facility] [address] [place] [phone] 03/04/2025 7:00 AM EST Clinical Support [facility] [place] [address] [phone] Nkechi Grajeda, EDD 03/04/2025 8:15 AM EST Clinical Support [facility] [place] [facility] [address] [address] Nkechi Grajeda, EDD 03/11/2025 7:00 AM EST Clinical Support [facility] [place] [facility] [address] [phone] Nkechi Grajeda, EDD 03/18/2025 7:00 AM EST Clinical Support [facility] [place] [facility] [address] [address] Nkechi Grajeda, EDD 03/25/2025 7:00 AM EST Clinical Support [facility] [place] [facility] [address] [address] Nkechi Grajeda, EDD 04/01/2025 7:00 AM EST Clinical Support [facility] [place] [facility] [address] [address] Nkechi Grajeda, EDD 04/01/2025 8:15 AM EST Clinical Support [facility] [place] [facility] [address] [phone] Nkechi Grajeda, EDD 04/08/2025 7:00 AM EST Clinical Support [facility] [place] [address] [address] Nkechi Grajeda, EDD 04/14/2025 9:25 AM EST Office Visit [facility] - [address] [facility] [address] [place] [address] Dillon Mendosa MD [address] [place] [address] [place] [address] 04/15/2025 7:00 AM EST Clinical Support [facility] [place] [address] [address] Nkechi Grajeda, EDD 04/22/2025 7:00 AM EST Clinical Support [facility] [place] [facility] [address] [address] Nkechi Grajeda RN 04/29/2025 7:00 AM EST Clinical Support [facility] [place] [facility] [address] [address] Nkechi Grajeda, EDD 04/29/2025 8:15 AM EST Clinical Support [facility] [place] [address] [address] Nkechi Grajeda, EDD 05/06/2025 7:00 AM EST Clinical Support [facility] [place] [address] [address] Nkechi Grajeda, EDD 05/13/2025 7:00 AM EST Clinical Support [facility] [place] [address] [phone] Nkechi Grajeda, EDD 05/20/2025 7:00 AM EST Clinical Support [facility] [place] [address] [phone] Nkechi Grajeda, EDD 05/27/2025 7:00 AM EDT Clinical Support [facility] [address] [place] [phone] Nkechi Graejda, EDD 05/27/2025 8:15 AM EDT Clinical Support [facility] [address] [place] [phone] Nkechi Grajeda, EDD 06/03/2025 7:00 AM EDT Clinical Support [facility] [address] [place] [phone] Nkechi Grajeda, EDD 06/10/2025 7:00 AM EDT Clinical Support [facility] [address] [place] [phone] Nkechi Grajeda, EDD 06/17/2025 7:00 AM EDT Clinical Support [facility] [address] [place] [phone] Nkechi Grajeda, EDD 06/24/2025 7:00 AM EDT Clinical Support [facility] [address] [place] [phone] Nkechi Grajeda, EDD 06/24/2025 8:15 AM EDT Clinical Support [facility] [place] [facility] [address] [place] [phone] Nkechi Grajeda, EDD 07/01/2025 7:00 AM EDT Clinical Support [facility] [address] [place] [phone] Nkechi Grajeda, RN 07/08/2025 7:00 AM EDT Clinical Support [facility] [address] [place] [phone] Nkechi Grajeda, EDD 07/15/2025 7:00 AM EDT Clinical Support [facility] [address] [place] [phone] Nkechi Grajeda, EDD 07/22/2025 8:15 AM EDT Clinical Support [facility] [address] [place] [phone] Nkechi Grajeda, RN 08/19/2025 8:15 AM EDT Clinical Support [facility] [address] [place] [phone] Nkechi Grajeda, RN 09/16/2025 8:15 AM EDT Clinical Support [address] [phone] Nkechi Grajeda, EDD 10/14/2025 8:15 AM EDT Clinical Support [address] [phone] Nkechi Grajeda RN 11/11/2025 8:15 AM EDT Clinical Support [address] [phone] Nkechi Grajeda RN 12/09/2025 8:15 AM EDT Clinical Support [address] [phone] Nkechi Grajeda, RN documented as of this encounter Visit Diagnoses Not on filedocumented in this encounter Additional Health Concerns Assessment Noted Time PHQ-9 Depression Total Score: 20 025 12:16 PM EDT documented as of this encounter Care Teams Classer Relationship Specialty Start Date End Date Deloris Tobias NP [address] [place] [id number] PCP - General Family Medicine 12/01/24 documented as of this encounter
--- OUTSIDE RECORDS SUMMARY | 2024-12-16 04:26 | XMS_ITS | Encounter Summary ---
Author Organization [facility] Address [address] [place] [address] Care Team Providers Care Travel Assistant Name Role Phone Deloris Tobias MUSIC COORDINATOR Primary Care Provider [phone] Encounter Details Date Type Department Care Team (Late st Contact Info) Description 12/16/2024 [facility] [address] [place] [phone] Nora Mauricio RN Wound of left leg, [...] [facility] [address] [place] [phone] Merlin Forbes 12/16/2024 11:00 AM EDT Office Visit [facility] [address] [place] [address] Deloris Tobias, JOHNATHAN [address] [address] 12/16/2024 6:00 PM EDT PACE Home Care / PACE Home Visit Emilee MAHONEY [facility] [address] [place] [phone] My Phillips 12/17/2024 7:00 AM EDT Clinical Support [facility] [address] [place] [phone] Nkechi Grajeda RN 12/17/2024 9:30 AM EDT PACE Home Care / PACE Home Visit Emilee [facility] [address] [place] [phone] Merlin Forbes 12/17/2024 11:00 AM EDT Treatment Emilee MAHONEY MA Occupational Therapy [address] [place] [phone] Tyler Ling OT 12/17/2024 6:00 PM EDT PACE Home Care / PACE Home Visit Emilee [facility] [address] [place] [phone] My Phillips 12/18/2024 10:00 AM EDT PACE Home Care / PACE Home Visit Emilee [facility] [address] [place] [phone] Merlin Forbes 12/18/2024 6:00 PM EDT PACE Home Care / PACE Home Visit Emilee [facility] [address] [place] [phone] My Phillips 12/19/2024 10:30 AM EDT PACE Home Care / PACE Home Visit Emilee [facility] [address] [place] [phone] Merlin Forbes 12/19/2024 6:00 PM EDT PACE Home Care / PACE Home Visit Emilee [facility] [address] [place] [phone] My Phillips 12/20/2024 9:00 AM EDT Appointment [address] [address] 12/20/2024 9:30 AM EDT PACE Home Care / PACE Home Visit Emilee [facility] [address] [place] [phone] Merlin Forbes 12/20/2024 6:00 PM EDT PACE Home Care / PACE Home Visit Emilee [facility] [address] [place] [phone] My Phillips 12/21/2024 8:30 AM EDT PACE Home Care / PACE Home Visit Emilee [facility] [address] [place] [phone] Anabelle Valdez 12/22/2024 8:30 AM EDT PACE Home Care / PACE Home Visit Emilee [facility] [address] [place] [phone] Anabelle Valdez 12/23/2024 9:30 AM EDT PACE Home Care / PACE Home Visit Emilee [facility] [address] [place] [phone] Merlin Forbes 12/23/2024 6:00 PM EDT PACE Home Care / PACE Home Visit Emilee MA[facility]ONEY [facility] [address] [place] [phone] My Phillips 12/24/2024 7:00 AM EDT Clinical Support [facility] [address] [place] [phone] Nkechi Grajeda RN 12/24/2024 9:30 AM EDT PACE Home Care / PACE Home Visit Emilee [facility] [address] [place] [phone] Merlin Forbes 12/24/2024 6:00 PM EDT PACE Home Care / PACE Home Visit Emilee MAHONEY [facility] [address] [place] [phone] My Phillips 12/25/2024 10:00 AM EDT PACE Home Care / PACE Home Visit Emilee [facility] [address] [place] [phone] Merlin Forbes 12/25/2024 6:00 PM EDT PACE Home Care / PACE Home Visit Emilee [facility] [address] [place] [phone] My Phillips 12/26/2024 10:40 AM EDT Clinical Support Emilee MAHONEY MA [address] [place] [phone] 12/26/2024 6:00 PM EDT PACE Home Care / PACE Home Visit Emilee MA[facility]ONE[facility] [address] [place] [phone] My Phillips 12/27/2024 9:30 AM EDT PACE Home Care / PACE Home Visit Emilee [facility] [address] [place] [phone] Merlin Forbes 12/27/2024 6:00 PM EDT PACE Home Care / PACE Home Visit Emilee [facility]ONE[facility] [address] [place] [phone] My Phillips 12/30/2024 9:30 AM EDT PACE Home Care / PACE Home Visit Emilee [facility] [address] [place] [address] Merlin Forbes 12/30/2024 6:00 PM EDT PACE Home Care / PACE Home Visit Emilee [facility] [address] [place] [address] My Phillips 12/31/2024 7:00 AM EDT Clinical Support [facility] [address] [place] [phone] Nkechi Grajeda RN 12/31/2024 9:30 AM EDT PACE Home Care / PACE Home Visit Emilee [facility] [address] [place] [phone] Merlin Forbes 12/31/2024 10:00 AM EDT Ancillary Procedure [facility] - [address] [place] [address] 12/31/2024 6:00 PM EDT PACE Home Care / PACE Home Visit Emilee [facility]ONEY [facility] [address] [place] [phone] My Phillips 01/01/2025 10:00 AM EDT PACE Home Care / PACE Home Visit Emilee [facility] [address] [place] [phone] Merlin Forbes 01/01/2025 6:00 PM EDT PACE Home Care / PACE Home Visit Emilee MAHONEY [facility] [address] [place] [phone] My Phillips 01/02/2025 10:30 AM EDT PACE Home Care / PACE Home Visit Emilee MA[facility]ONE[facility] [address] [place] [address] [place] [address] Merlin Forbes 01/02/2025 3:00 PM EDT Clinical Support Emilee MAHONEY [place] [address] [place] [address] 01/02/2025 6:00 PM EDT PACE Home Care / PACE Home Visit Emilee [facility]ONE[facility] [address] [place] [phone] My Phillips 01/03/2025 9:30 AM EDT PACE Home Care / PACE Home Visit Emilee MA[facility]ONE[facility] [address] [place] [phone] Merlin Forbes 01/03/2025 6:00 PM EDT PACE Home Care / PACE Home Visit Emilee MA[facility]ONE[facility] [address] [place] [phone] My Phillips 01/04/2025 8:30 AM EDT PACE Home Care / PACE Home Visit Emilee [facility] [address] [place] [phone] Anabelle Valdez 01/05/2025 8:30 AM EDT PACE Home Care / PACE Home Visit Emilee [facility] [address] [place] [phone] Anabelle Valdez 01/06/2025 9:30 AM EDT PACE Home Care / PACE Home Visit Em[facility] [address] [place] [phone] Merlin Forbes 01/06/2025 6:00 PM EDT PACE Home Care / PACE Home Visit Emilee [facility] [address] [place] [phone] My Phillips 01/07/2025 7:00 AM EDT Clinical Support [facility] [address] [place] [phone] Nkechi Grajeda, EDD 01/07/2025 8:15 AM EDT Clinical Support [facility] [address] [place] [phone] Nkechi Grajeda, EDD 01/07/2025 9:30 AM EDT PACE Home Care / PACE Home Visit Em[facility] [address] [place] [phone] Merlin Forbes 01/07/2025 6:00 PM EDT PACE Home Care / PACE Home Visit Emilee [facility] [address] [place] [phone] My Phillips 01/08/2025 10:00 AM EDT PACE Home Care / PACE Home Visit Emilee MA[facility] [address] [place] [phone] Merlin Forbes 01/08/2025 6:00 PM EDT PACE Home Care / PACE Home Visit Emilee MA[facility]ONE[facility] [address] [place] [phone] My Phillips 01/09/2025 10:30 AM EDT PACE Home Care / PACE Home Visit Emilee MA[facility]ONEY [facility] [address] [place] [phone] Merlin Forbes 01/09/2025 6:00 PM EDT PACE Home Care / PACE Home Visit Emilee [facility]HONEY [facility] [address] [place] [phone] My Phillips 01/10/2025 9:30 AM EDT PACE Home Care / PACE Home Visit Emilee MA[facility]ONEY [facility] [address] [place] [phone] Merlin Forbes 01/10/2025 10:00 AM EDT Clinical Support Emilee MAHONEY [place] [address] [place] [address] 01/10/2025 6:00 PM EDT PACE Home Care / PACE Home Visit Emilee [facility] [address] [place] [address] My Phillips 01/13/2025 9:30 AM EDT PACE Home Care / PACE Home Visit Emilee [facility] [address] [place] [address] Merlin Forbes 01/13/2025 6:00 PM EDT PACE Home Care / PACE Home Visit Emilee [facility] [address] [place] [address] My Phillips 01/14/2025 7:00 AM EDT Clinical Support [facility] [address] [place] [address] Nkechi Grajeda, EDD 01/14/2025 9:30 AM EDT PACE Home Care / PACE Home Visit Em[facility] [address] [place] [address] Merlin Forbes 01/14/2025 6:00 PM EDT PACE Home Care / PACE Home Visit Emilee [facility] [address] [place] [address] My Phillips 01/15/2025 10:00 AM EDT PACE Home Care / PACE Home Visit Em[facility] [address] [place] [address] Merlin Forbes 01/15/2025 6:00 PM EDT PACE Home Care / PACE Home Visit Emilee MA[facility]ONEY [facility] [address] [place] [address] My Phillips 01/16/2025 10:30 AM EDT PACE Home Care / PACE Home Visit Emilee MA[facility]ONE[facility] [address] [place] [address] Merlin Forbes 01/16/2025 6:00 PM EDT PACE Home Care / PACE Home Visit Emilee MAHONEY [facility] [address] [place] [phone] My Phillips 01/17/2025 9:30 AM EDT PACE Home Care / PACE Home Visit Emilee MAHONEY [facility] [address] [place] [phone] Merlin Forbes 01/17/2025 6:00 PM EDT PACE Home Care / PACE Home Visit Emilee MAHONEY [facility] [address] [place] [phone] My Phillips 01/18/2025 8:30 AM EDT PACE Home Care / PACE Home Visit Emilee MAHONEY [facility] [address] [place] [phone] Anabelle Valdez 01/19/2025 8:30 AM EST PACE Home Care / PACE Home Visit Emilee [facility]Y [facility] [address] [place] [phone] Anabelle Valdez 01/20/2025 9:30 AM EST PACE Home Care / PACE Home Visit Emilee MA[facility] [address] [place] [phone] Merlin Forbes 01/20/2025 6:00 PM EST PACE Home Care / PACE Home Visit Emilee MA[facility]ONEY [facility] [address] [place] [phone] My Phillips 01/21/2025 7:00 AM EST Clinical Support [facility] [address] [place] [phone] Nkechi Grajeda RN 01/21/2025 9:30 AM EST PACE Home Care / PACE Home Visit [facility] [place] [facility] [address] [place] [address] Merlin Forbes 01/21/2025 10:45 AM EST Clinical Support Emilee MAHONEY [place] [address] [place] [address] 01/21/2025 6:00 PM EST PACE Home Care / PACE Home Visit Emilee [facility]ONEY [facility] [address] [place] [address] My Phillips 01/22/2025 10:00 AM EST PACE Home Care / PACE Home Visit Emilee MA[facility]ONEY [facility] [address] [place] [phone] Merlin Forbes 01/22/2025 6:00 PM EST PACE Home Care / PACE Home Visit Emilee MA[facility] [address] [place] [phone] My Phillips 01/23/2025 10:30 AM EST PACE Home Care / PACE Home Visit Emilee MAHONEY [facility] [address] [place] [phone] Merlin Forbes 01/23/2025 6:00 PM EST PACE Home Care / PACE Home Visit Emilee MAHONEY [facility] [address] [place] [phone] My Phillips 01/24/2025 9:30 AM EST PACE Home Care / PACE Home Visit Emilee MA[facility]ONEY [facility] [address] [place] [phone] Merlin Forbes 01/24/2025 6:00 PM EST PACE Home Care / PACE Home Visit Em[facility] [address] [place] [address] My Phillips 01/27/2025 9:30 AM EST PACE Home Care / PACE Home Visit [facility] [place] [facility] [address] [place] [address] Merlin Forbes 01/27/2025 6:00 PM EST PACE Home Care / PACE Home Visit Emilee MAHONEY [facility] [address] [place] [address] My Phillips 01/28/2025 7:00 AM EST Clinical Support [facility] [place] [facility] [address] [place] [address] Nkechi Grajeda RN 01/28/2025 9:30 AM EST PACE Home Care / PACE Home Visit [facility] [address] [place] [address] Merlin Forbes 01/28/2025 6:00 PM EST PACE Home Care / PACE Home Visit Emilee [facility] [address] [place] [address] My Phillips 01/29/2025 10:00 AM EST PACE Home Care / PACE Home Visit Emilee MA[facility] [address] [place] [phone] Merlin Forbes 01/29/2025 6:00 PM EST PACE Home Care / PACE Home Visit Em[facility] [address] [place] [phone] My Phillips 01/30/2025 10:30 AM EST PACE Home Care / PACE Home Visit Em[facility] [address] [place] [address] Merlin Forbes 01/30/2025 6:00 PM EST PACE Home Care / PACE Home Visit Em[facility] [address] [place] [address] My Phillips 01/31/2025 9:30 AM EST PACE Home Care / PACE Home Visit Em[facility] [address] [place] [address] Merlin Forbes 01/31/2025 11:00 AM EST PACE External Visit Emilee MAHONEY [place] [address] [place] [address] 01/31/2025 6:00 PM EST PACE Home Care / PACE Home Visit Em[facility] [address] [place] [address] My Phillips 02/01/2025 8:30 AM EST PACE Home Care / PACE Home Visit Em[facility] [address] [place] [phone] Anabelle Valdez 02/02/2025 8:30 AM EST PACE Home Care / PACE Home Visit Em[facility] [address] [place] [phone] Anabelle Valdez 02/03/2025 9:30 AM EST PACE Home Care / PACE Home Visit Em[facility] [address] [place] [phone] Merlin Forbes 02/03/2025 6:00 PM EST PACE Home Care / PACE Home Visit Em[facility] [address] [place] [phone] My Phillips 02/04/2025 7:00 AM EST Clinical Support [facility] [place] [facility] [address] [place] [phone] Nkechi Grajeda, RN 02/04/2025 8:15 AM EST Clinical Support [facility] [place] [facility] [address] [place] [phone] Nkechi Grajeda, RN 02/04/2025 9:30 AM EST PACE Home Care / PACE Home Visit [facility] [address] [place] [phone] Merlin Forbes 02/04/2025 6:00 PM EST PACE Home Care / PACE Home Visit [facility] [place] [facility] [address] [place] [phone] My Phillips 02/05/2025 10:00 AM EST PACE Home Care / PACE Home Visit [facility] [place] [facility] [address] [place] [phone] Merlin Forbes 02/05/2025 6:00 PM EST PACE Home Care / PACE Home Visit [facility] [place] [facility] [address] [place] [phone] My Phillips 02/06/2025 10:30 AM EST PACE Home Care / PACE Home Visit [facility] [place] [facility] [address] [place] [phone] Merlin Forbes 02/06/2025 6:00 PM EST PACE Home Care / PACE Home Visit [facility] [place] [facility] [address] [place] [phone] My Phillips 02/07/2025 9:30 AM EST PACE Home Care / PACE Home Visit [facility] [place] [facility] [address] [place] [phone] Merlin Forbes 02/07/2025 6:00 PM EST PACE Home Care / PACE Home Visit [facility] [place] [facility] [address] [place] [phone] My Phillips 02/10/2025 9:30 AM EST PACE Home Care / PACE Home Visit [facility] [place] [facility] [address] [place] [phone] Merlin Forbes 02/10/2025 6:00 PM EST PACE Home Care / PACE Home Visit [facility] [place] [facility] [address] [place] [phone] My Phillips 02/11/2025 7:00 AM EST Clinical Support [facility] [place] [facility] [address] [place] [phone] Nkechi Grajeda, EDD 02/11/2025 9:30 AM EST PACE Home Care / PACE Home Visit [facility] [address] [place] [phone] Merlin Forbes 02/11/2025 6:00 PM EST PACE Home Care / PACE Home Visit [facility] [address] [place] [phone] My Phillips 02/12/2025 10:00 AM EST PACE Home Care / PACE Home Visit [facility] [address] [place] [phone] Merlin Forbes 02/12/2025 6:00 PM EST PACE Home Care / PACE Home Visit [facility] [address] [place] [phone] My Phillips 02/13/2025 10:30 AM EST PACE Home Care / PACE Home Visit [facility] [address] [place] [phone] Merlin Forbes 02/13/2025 6:00 PM EST PACE Home Care / PACE Home Visit [facility] [address] [place] [phone] My Phillips 02/18/2025 7:00 AM EST Clinical Support [facility] [place] [facility] [address] [place] [phone] Nkechi Grajeda, EDD 02/25/2025 7:00 AM EST Clinical Support [facility] [place] [facility] [address] [place] [phone] Nkechi Grajeda, EDD 02/27/2025 10:40 AM EST Clinical Support [facility] [place] [address] [place] [phone] 03/04/2025 7:00 AM EST Clinical Support [facility] [place] [address] [address] Nkechi Grajeda, EDD 03/04/2025 8:15 AM EST Clinical Support [facility] [place] [facility] [address] [place] [phone] Nkechi Grajeda, EDD 03/11/2025 7:00 AM EST Clinical Support [facility] [place] [address] [phone] Nkechi Grajeda, EDD 03/18/2025 7:00 AM EST Clinical Support [facility] [place] [address] [phone] Nkechi Grajeda, EDD 03/25/2025 7:00 AM EST Clinical Support [facility] [place] [address] [phone] Nkechi Grajeda, EDD 04/01/2025 7:00 AM EST Clinical Support [facility] [place] [address] [address] Nkechi Grajeda, EDD 04/01/2025 8:15 AM EST Clinical Support [facility] [place] [facility] [address] [place] [phone] Nkechi Grajeda, RN 04/08/2025 7:00 AM EST Clinical Support [facility] [place] [facility] [address] [place] [phone] Nkechi Grajeda, EDD 04/14/2025 9:25 AM EST Office Visit [facility] [address] [facility] [address] [place] [address] Dillon Mendosa MD [address] [place] [address] [place] [phone] 04/15/2025 7:00 AM EST Clinical Support [facility] [place] [address] [address] Nkechi Grajeda, EDD 04/22/2025 7:00 AM EST Clinical Support [facility] [place] [address] [phone] Nkechi Grajeda, EDD 04/29/2025 7:00 AM EST Clinical Support [facility] [place] [address] [address] Nkechi Grajeda, EDD 04/29/2025 8:15 AM EST Clinical Support [facility] [place] [address] [address] Nkechi Grajeda, EDD 05/06/2025 7:00 AM EST Clinical Support [facility] [place] [address] [address] Nkechi Grajeda, EDD 05/13/2025 7:00 AM EST Clinical Support [facility] [place] [address] [address] Nkechi Grajeda, EDD 05/20/2025 7:00 AM EST Clinical Support [facility] [place] [address] [address] Nkechi Grajeda, EDD 05/27/2025 7:00 AM EDT Clinical Support [facility] [place] [address] [phone] Nkechi Grajeda, EDD 05/27/2025 8:15 AM EDT Clinical Support [facility] [place] [address] [phone] Nkechi Grajeda, EDD 06/03/2025 7:00 AM EDT Clinical Support [facility] [place] [facility] [address] [place] [phone] Nkechi Grajeda, EDD 06/10/2025 7:00 AM EDT Clinical Support [facility] [place] [facility] [address] [place] [phone] Nkechi Grajeda, EDD 06/17/2025 7:00 AM EDT Clinical Support [facility] [place] [facility] [address] [place] [phone] Nkechi Grajeda, EDD 06/24/2025 7:00 AM EDT Clinical Support [facility] [place] [facility] [address] [place] [phone] Nkechi Grajeda, EDD 06/24/2025 8:15 AM EDT Clinical Support [facility] [place] [address] [address] Nkechi Grajeda, EDD 07/01/2025 7:00 AM EDT Clinical Support [facility] [place] [facility] [address] [place] [phone] Nkechi Grajeda, EDD 07/08/2025 7:00 AM EDT Clinical Support [facility] [place] [facility] [address] [place] [phone] Nkechi Grajeda, EDD 07/15/2025 7:00 AM EDT Clinical Support [facility] [place] [facility] [address] [place] [phone] Nkechi Grajeda, EDD 07/22/2025 8:15 AM EDT Clinical Support [facility] [place] [facility] [address] [place] [phone] Nkechi Grajeda, RN 08/19/2025 8:15 AM EDT Clinical Support [facility] [place] [facility] [address] [place] [phone] Nkechi Grajeda, EDD 09/16/2025 8:15 AM EDT Clinical Support [address] [address] Nkechi Grajeda, EDD 10/14/2025 8:15 AM EDT Clinical Support [address] [phone] Nkechi Grajeda, EDD 11/11/2025 8:15 AM EDT Clinical Support [address] [address] Nkechi Grajeda RN 12/09/2025 8:15 AM EDT Clinical Support [address] [phone] Nekchi Grajeda, EDD documented as of this encounter Visit Diagnoses Diagnosis Wound of left leg, subsequent encounter Encounter for adjustment or management of cardiac device documented in this encounter Orders PACE Service Orderables Count Last Ordered Date First Ordered Date [facility] 12/13/2024 documented in this encounter Additional Health Concerns Assessment Noted Time PHQ-9 Depression Total Score: 20 025 12:16 PM EDT documented as of this encounter Care Teams Travel Assistant Relationship Specialty Start Date End Date Deloris Tobias NP [address] [place] [phone] PCP - General Family Medicine 12/01/24 documented as of this encounter
--- OUTSIDE RECORDS SUMMARY | 2024-12-16 04:26 | XMS_ITS | Encounter Summary ---
Author Organization [facility] Address [address] [place] [address] Care Team Providers Care Electrical Contacts Adjuster Name Role Phone Deloris Tobias MOLDER VACUUM Primary Care Provider [phone] Encounter Details Date Type Department Care Team (Late st Contact Info) Description 12/11/2024 Telephone [facility] Clinic [address] [place] [address] Audrey Baptiste RN Social History Tobacco Use Types Packs/Day Years [...] Author No Risk Indicated 12/11/2024 9:44 PM EDGeronimo Rivera RN * [place] Suicide Severity Rating Scale (Screener/Recent Self-Report) Question Answer Date of Assessment Author 1. Wish to be (Past 1 Month) No 12/11/2024 9:44 PM EDT Bernardino Rodriguez RN 2. Non-Specific Active Suici pari Thoughts (Past 1 Month) No 12/11/2024 9:44 PM EDT Jerel Rodriguez RN 6. Suicidal Behavior (Lifetime) No 9:44 PM EDT Geronimo Rodriguez RN documented as of this encounter Progress Notes * Audrey Baptiste RN - 12/12/2024 9:47 AM EDT Par received lorazepam in hand. documented in this encounter Plan of Treatment Upcoming Encounters Date Type Department Care Team (Late st Contact Info) Description 12/16/2024 9:30 AM EDT PACE Home Care / PACE Home Visit [facility] [place] [facility] [address] [place] [phone] Merlin Forbes 12/16/2024 11:00 AM EDT Office Visit Emilee [place] [place] [address] [address] Deloris Tobias NP [address] [address] 12/16/2024 6:00 PM EDT PACE Home Care / PACE Home Visit [facility] [place] [facility] [address] [place] [phone] My Phillips 12/17/2024 7:00 AM EDT Clinical Support [facility] [place] [address] [phone] Nkechi Grajeda RN 12/17/2024 9:30 AM EDT PACE Home Care / PACE Home Visit Em[facility] [place] [facility] [address] [place] [phone] Merlin Forbes 12/17/2024 11:00 AM EDT Treatment Emilee [facility]Y MA Occupational Therapy [address] [place] [phone] Tyler Ling OT 12/17/2024 6:00 PM EDT PACE Home Care / PACE Home Visit Em[facility] [place] [facility] [address] [place] [phone] My Phillips 12/18/2024 10:00 AM EDT PACE Home Care / PACE Home Visit Em[facility] [place] [facility] [address] [place] [phone] Merlin Forbes 12/18/2024 6:00 PM EDT PACE Home Care / PACE Home Visit Em[facility] [place] [facility] [address] [place] [phone] My Phillips 12/19/2024 10:30 AM EDT PACE Home Care / PACE Home Visit [facility] [place] [facility] [address] [place] [phone] Merlin Forbes 12/19/2024 6:00 PM EDT PACE Home Care / PACE Home Visit Em[facility] [place] [facility] [address] [place] [phone] My Phillips 12/20/2024 9:[address] [facility] Ultrasound [address] [place] [phone] 12/20/2024 9:30 AM EDT PACE Home Care / PACE Home Visit Em[facility] [place] [facility] [address] [place] [phone] Merlin Forbes 12/20/2024 6:00 PM EDT PACE Home Care / PACE Home Visit Emilee [facility] [address] [place] [address] My Phillips 12/21/2024 8:30 AM EDT PACE Home Care / PACE Home Visit Em[facility] [place] [facility] [address] [place] [address] Anabelle Valdez 12/22/2024 8:30 AM EDT PACE Home Care / PACE Home Visit Em[facility] [place] [facility] [address] [place] [address] Anabelle Valdez 12/23/2024 9:30 AM EDT PACE Home Care / PACE Home Visit Em[facility] [place] [facility] [address] [place] [phone] Merlin Forbes 12/23/2024 6:00 PM EDT PACE Home Care / PACE Home Visit Em[facility] [place] [facility] [address] [place] [phone] My Phillips 12/24/2024 7:00 AM EDT Clinical Support [facility] [place] [facility] Clinic [address] [place] [address] Nkechi Grajeda RN 12/24/2024 9:30 AM EDT PACE Home Care / PACE Home Visit Em[facility] [place] [facility] [address] [place] [phone] Merlin Forbes 12/24/2024 6:00 PM EDT PACE Home Care / PACE Home Visit Em[facility] [place] [facility] [address] [place] [phone] My Phillips 12/25/2024 10:00 AM EDT PACE Home Care / PACE Home Visit Em[facility] [place] [facility] [address] [place] [address] Merlin Forbes 12/25/2024 6:00 PM EDT PACE Home Care / PACE Home Visit Em[facility] [place] [facility] [address] [place] [address] My Phillips 12/26/2024 10:40 AM EDT Clinical Support Emilee [facility] [place] [address] [place] [address] 12/26/2024 6:00 PM EDT PACE Home Care / PACE Home Visit Em[facility] [place] [facility] [address] [place] [phone] My Phillips 12/27/2024 9:30 AM EDT PACE Home Care / PACE Home Visit Em[facility] [place] [facility] [address] [place] [phone] Merlin Forbes 12/27/2024 6:00 PM EDT PACE Home Care / PACE Home Visit Emilee [facility] [place] [facility] [address] [place] [phone] My Phillips 12/30/2024 9:30 AM EDT PACE Home Care / PACE Home Visit Em[facility] [place] [facility] [address] [place] [phone] Merlin Forbes 12/30/2024 6:00 PM EDT PACE Home Care / PACE Home Visit Emilee [facility] [place] [facility] [address] [place] [phone] My Phillips 12/31/2024 7:00 AM EDT Clinical Support [facility] [place] [facility] [address] [place] [phone] Nkechi Grajeda RN 12/31/2024 9:30 AM EDT PACE Home Care / PACE Home Visit Em[facility] [place] [facility] [address] [place] [address] Merlin Forbes 12/31/2024 10:00 AM EDT Ancillary Procedure [facility] - [facility] [address] [facility] [address] [place] [address] 12/31/2024 6:00 PM EDT PACE Home Care / PACE Home Visit Emilee [facility] [place] [facility] [address] [place] [address] My Phillips 01/01/2025 10:00 AM EDT PACE Home Care / PACE Home Visit Em[facility] [place] [facility] [address] [place] [address] Merlin Forbes 01/01/2025 6:00 PM EDT PACE Home Care / PACE Home Visit Emilee [facility] [place] [facility] [address] [place] [phone] My Phillips 01/02/2025 10:30 AM EDT PACE Home Care / PACE Home Visit Em[facility] [place] [facility] [address] [place] [phone] Merlin Forbes 01/02/2025 3:00 PM EDT Clinical Support Emilee [facility]HONEY [place] [address] [place] [phone] 01/02/2025 6:00 PM EDT PACE Home Care / PACE Home Visit Em[facility] [place] [facility] [address] [place] [phone] My Phillips 01/03/2025 9:30 AM EDT PACE Home Care / PACE Home Visit Emilee [facility] [place] [facility] [address] [place] [phone] Merlin Forbes 01/03/2025 6:00 PM EDT PACE Home Care / PACE Home Visit Emilee [facility] [place] [facility] [address] [place] [phone] My Phillips 01/04/2025 8:30 AM EDT PACE Home Care / PACE Home Visit Emilee [facility] [place] [facility] [address] [place] [phone] Anabelle Valdez 01/05/2025 8:30 AM EDT PACE Home Care / PACE Home Visit Em[facility] [place] [facility] [address] [place] [phone] Anabelle Valdez 01/06/2025 9:30 AM EDT PACE Home Care / PACE Home Visit Em[facility] [place] [facility] [address] [place] [phone] Merlin Forbes 01/06/2025 6:00 PM EDT PACE Home Care / PACE Home Visit Em[facility] [place] [facility] [address] [place] [phone] My Phillips 01/07/2025 7:00 AM EDT Clinical Support [facility] [place] [facility] [address] [place] [phone] Nkechi Grajeda, RN 01/07/2025 8:15 AM EDT Clinical Support [facility] [place] [facility] [address] [place] [phone] Nkechi Grajeda, RN 01/07/2025 9:30 AM EDT PACE Home Care / PACE Home Visit Em[facility] [place] [facility] [address] [place] [phone] Merlin Forbes 01/07/2025 6:00 PM EDT PACE Home Care / PACE Home Visit Em[facility] [place] [facility] [address] [place] [phone] My Phillips 01/08/2025 10:00 AM EDT PACE Home Care / PACE Home Visit Em[facility] [place] [facility] [address] [place] [phone] Merlin Forbes 01/08/2025 6:00 PM EDT PACE Home Care / PACE Home Visit Em[facility] [place] [facility] [address] [place] [address] My Phillips 01/09/2025 10:30 AM EDT PACE Home Care / PACE Home Visit Em[facility] [place] [facility] [address] [place] [phone] Merlin Forbes 01/09/2025 6:00 PM EDT PACE Home Care / PACE Home Visit Em[facility] [place] [facility] [address] [place] [phone] My Phillips 01/10/2025 9:30 AM EDT PACE Home Care / PACE Home Visit Em[facility] [place] [facility] [address] [place] [phone] Merlin Forbes 01/10/2025 10:00 AM EDT Clinical Support Emilee MAHONEY [place] [address] [place] [phone] 01/10/2025 6:00 PM EDT PACE Home Care / PACE Home Visit Em[facility] [place] [facility] [address] [place] [phone] My Phillips 01/13/2025 9:30 AM EDT PACE Home Care / PACE Home Visit Em[facility] [place] [facility] [address] [place] [phone] Merlin Forbes 01/13/2025 6:00 PM EDT PACE Home Care / PACE Home Visit Em[facility] [place] [facility] [address] [place] [phone] My Phillips 01/14/2025 7:00 AM EDT Clinical Support [facility] [place] [facility] [facility] [address] [place] [address] Nkechi Grajeda RN 01/14/2025 9:30 AM EDT PACE Home Care / PACE Home Visit Em[facility] [place] [facility] [address] [place] [phone] Merlin Forbes 01/14/2025 6:00 PM EDT PACE Home Care / PACE Home Visit Em[facility] [place] [facility] [address] [place] [phone] My Phillips 01/15/2025 10:00 AM EDT PACE Home Care / PACE Home Visit Em[facility] [place] [facility] [address] [place] [phone] Merlin Forbes 01/15/2025 6:00 PM EDT PACE Home Care / PACE Home Visit Em[facility] [place] [facility] [address] [place] [phone] My Phillips 01/16/2025 10:30 AM EDT PACE Home Care / PACE Home Visit Em[facility] [place] [facility] [address] [place] [phone] Merlin Forbes 01/16/2025 6:00 PM EDT PACE Home Care / PACE Home Visit Em[facility] [place] [facility] [address] [place] [phone] My Phillips 01/17/2025 9:30 AM EDT PACE Home Care / PACE Home Visit Em[facility] [place] [facility] [address] [place] [phone] Merlin Forbes 01/17/2025 6:00 PM EDT PACE Home Care / PACE Home Visit Em[facility] [place] [facility] [address] [place] [phone] My Phillips 01/18/2025 8:30 AM EDT PACE Home Care / PACE Home Visit Em[facility] [place] [facility] [address] [place] [phone] Anabelle Valdez 01/19/2025 8:30 AM EST PACE Home Care / [facility] Visit [facility] [place] [facility] [address] [place] [address] Anabelle Valdez 01/20/2025 9:30 AM EST PACE Home Care / PACE Home Visit Em[facility] [place] [facility] [address] [place] [address] Merlin Forbes 01/20/2025 6:00 PM EST PACE Home Care / PACE Home Visit [facility] [place] [facility] [address] [place] [address] My Phillips 01/21/2025 7:00 AM EST Clinical Support [facility] [place] [facility] Clinic [address] [place] [address] Nkechi Grajeda RN 01/21/2025 9:30 AM EST PACE Home Care / PACE Home Visit [facility] [place] [facility] [address] [place] [address] Merlin Forbes 01/21/2025 10:45 AM EST Clinical Support Emilee [facility]HONEY [place] [address] [place] [address] 01/21/2025 6:00 PM EST PACE Home Care / PACE Home Visit [facility] [place] [facility] [address] [place] [address] My Phillips 01/22/2025 10:00 AM EST PACE Home Care / PACE Home Visit [facility] [place] [facility] [address] [place] [address] Merlin Forbes 01/22/2025 6:00 PM EST PACE Home Care / P[facility] Home Visit [facility] [place] [facility] [address] [place] [address] My Phillips 01/23/2025 10:30 AM EST PACE Home Care / PACE Home Visit [facility] [place] [facility] [address] [place] [address] Merlin Forbes 01/23/2025 6:00 PM EST PACE Home Care / PACE Home Visit [facility] [place] [facility] [address] [place] [address] My Phillips 01/24/2025 9:30 AM EST PACE Home Care / PACE Home Visit Em[facility] [place] [facility] [address] [place] [phone] Merlin Forbes 01/24/2025 6:00 PM EST PACE Home Care / PACE Home Visit Em[facility] [place] [facility] [address] [place] [phone] My Phillips 01/27/2025 9:30 AM EST PACE Home Care / PACE Home Visit Em[facility] [place] [facility] [address] [place] [phone] Merlin Forbes 01/27/2025 6:00 PM EST PACE Home Care / PACE Home Visit [facility] [place] [facility] [address] [place] [phone] My Phillips 01/28/2025 7:00 AM EST Clinical Support [facility] [place] [facility] [address] [place] [phone] Nkechi Grajeda RN 01/28/2025 9:30 AM EST PACE Home Care / PACE Home Visit [facility] [place] [facility] [address] [place] [phone] Merlin Forbes 01/28/2025 6:00 PM EST PACE Home Care / PACE Home Visit [facility] [place] [facility] [address] [place] [phone] My Phillips 01/29/2025 10:00 AM EST PACE Home Care / [facility] Visit [facility] [place] [facility] [address] [place] [address] Merlin Forbes 01/29/2025 6:00 PM EST PACE Home Care / PACE Home Visit [facility] [place] [facility] [address] [place] [address] My Phillips 01/30/2025 10:30 AM EST PACE Home Care / PACE Home Visit [facility] [place] [facility] [address] [place] [address] Merlin Forbes 01/30/2025 6:00 PM EST PACE Home Care / PACE Home Visit [facility] [place] [facility] [address] [place] [address] My Phillips 01/31/2025 9:30 AM EST PACE Home Care / PACE Home Visit [facility] [place] [facility] [address] [place] [address] Merlin Forbes 01/31/2025 11:00 AM EST PACE External Visit [facility] [place] [address] [place] [address] 01/31/2025 6:00 PM EST PACE Home Care / PACE Home Visit [facility] [place] [facility] [address] [place] [phone] My Phillips 02/01/2025 8:30 AM EST PACE Home Care / PACE Home Visit [facility] [place] [facility] [address] [place] [phone] Anabelle Valdez 02/02/2025 8:30 AM EST PACE Home Care / PACE Home Visit [facility] [place] [facility] [address] [place] [phone] Anabelle Valdez 02/03/2025 9:30 AM EST PACE Home Care / PACE Home Visit [facility] [place] [facility] [address] [place] [address] Merlin Forbes 02/03/2025 6:00 PM EST PACE Home Care / PACE Home Visit [facility] [place] [facility] [address] [place] [address] My Phillips 02/04/2025 7:00 AM EST Clinical Support [facility] [place] [facility] [facility] [address] [place] [address] Nkechi Grajeda, EDD 02/04/2025 8:15 AM EST Clinical Support [facility] [place] [facility] [address] [place] [phone] Nkechi Grajeda, EDD 02/04/2025 9:30 AM EST PACE Home Care / PACE Home Visit [facility] [place] [facility] [address] [place] [phone] Merlin Forbes 02/04/2025 6:00 PM EST PACE Home Care / PACE Home Visit [facility] [place] [facility] [address] [place] [phone] My Phillips 02/05/2025 10:00 AM EST PACE Home Care / PACE Home Visit [facility] [place] [facility] [address] [place] [phone] Merlin Forbes 02/05/2025 6:00 PM EST PACE Home Care / PACE Home Visit [facility] [place] [facility] [address] [place] [phone] My Phillips 02/06/2025 10:30 AM EST PACE Home Care / PACE [facility] Visit [facility] [place] [facility] [address] [place] [phone] Merlin Forbes 02/06/2025 6:00 PM EST PACE Home Care / PACE Home Visit [facility] [place] [facility] [address] [place] [address] My Phillips 02/07/2025 9:30 AM EST PACE Home Care / PACE Home Visit [facility] [place] [facility] [address] [place] [address] Merlin Forbes 02/07/2025 6:00 PM EST PACE Home Care / PACE Home Visit [facility] [place] [facility] [address] [place] [address] My Phillips 02/10/2025 9:30 AM EST PACE Home Care / PACE Home Visit [facility] [place] [facility] [address] [place] [phone] Merlin Forbes 02/10/2025 6:00 PM EST PACE Home Care / PACE Home Visit [facility] [place] [facility] [address] [place] [phone] My Phillips 02/11/2025 7:00 AM EST Clinical Support [facility] [place] [facility] [address] [place] [phone] Nkechi Grajeda RN 02/11/2025 9:30 AM EST PACE Home Care / PACE Home Visit [facility] [place] [facility] [address] [place] [phone] Merlin Forbes 02/11/2025 6:00 PM EST PACE Home Care / PACE Home Visit [facility] [place] [facility] [address] [place] [phone] My Phillips 02/12/2025 10:00 AM EST PACE Home Care / PACE Home Visit [facility] [place] [facility] [address] [place] [address] Merlin Forbes 02/12/2025 6:00 PM EST PACE Home Care / PACE Home Visit [facility] [place] [facility] [address] [place] [phone] My Phillips 02/13/2025 10:30 AM EST PACE Home Care / PACE Home Visit [facility] [place] [facility] [address] [place] [phone] Merlin Forbes 02/13/2025 6:00 PM EST PACE Home Care / PACE Home Visit [facility] [place] [facility] [address] [place] [phone] My Phillips 02/18/2025 7:00 AM EST Clinical Support [facility] [place] [address] [address] Nkechi Grajeda, EDD 02/25/2025 7:00 AM EST Clinical Support [facility] [place] [facility] [address] [place] [phone] Nkechi Grajeda, EDD 02/27/2025 10:40 AM EST Clinical Support [facility] [place] [address] [place] [phone] 03/04/2025 7:00 AM EST Clinical Support [facility] [place] [facility] [address] [place] [phone] Nkechi Grajeda, EDD 03/04/2025 8:15 AM EST Clinical Support [facility] [place] [facility] [address] [place] [phone] Nkechi Grajeda, EDD 03/11/2025 7:00 AM EST Clinical Support [facility] [place] [facility] [address] [place] [phone] Nkechi Grajeda, EDD 03/18/2025 7:00 AM EST Clinical Support [facility] [place] [facility] [address] [place] [phone] Nkechi Grajeda, EDD 03/25/2025 7:00 AM EST Clinical Support [facility] [place] [address] [phone] Nkechi Grajeda RN 04/01/2025 7:00 AM EST Clinical Support [facility] [place] [address] [phone] Nkechi Grajeda, EDD 04/01/2025 8:15 AM EST Clinical Support [facility] [place] [address] [phone] Nkechi Grajeda, EDD 04/08/2025 7:00 AM EST Clinical Support [facility] [place] [address] [phone] Nkechi Grajeda RN 04/14/2025 9:25 AM EST Office Visit [facility] - [address] [facility] [address] [place] [address] Dillon Mendosa MD [address] [place] [address] [place] [address] 04/15/2025 7:00 AM EST Clinical Support [facility] [place] [address] [phone] Nkechi Grajeda RN 04/22/2025 7:00 AM EST Clinical Support [facility] [place] [address] [phone] Nkechi Grajeda RN 04/29/2025 7:00 AM EST Clinical Support [facility] [place] [address] [address] Nkechi Grajeda RN 04/29/2025 8:15 AM EST Clinical Support [facility] [place] [address] [phone] Nkechi Grajeda, EDD 05/06/2025 7:00 AM EST Clinical Support [facility] [place] [address] [place] [address] Nkechi Grajeda, EDD 05/13/2025 7:00 AM EST Clinical Support [facility] [place] [facility] [address] [place] [phone] Nkechi Grajeda, EDD 05/20/2025 7:00 AM EST Clinical Support [facility] [place] [facility] [address] [place] [phone] Nkechi Grajeda, EDD 05/27/2025 7:00 AM EDT Clinical Support [facility] [place] [facility] [address] [place] [phone] Nkechi Grajeda, EDD 05/27/2025 8:15 AM EDT Clinical Support [facility] [place] [address] [address] Nkechi Grajeda, EDD 06/03/2025 7:00 AM EDT Clinical Support [facility] [place] [facility] [address] [place] [phone] Nkechi Grajeda, EDD 06/10/2025 7:00 AM EDT Clinical Support [facility] [place] [facility] [address] [place] [phone] Nkechi Grajeda, EDD 06/17/2025 7:00 AM EDT Clinical Support [facility] [place] [facility] [address] [place] [phone] Nkechi Grajeda, EDD 06/24/2025 7:00 AM EDT Clinical Support [facility] [place] [facility] [address] [place] [phone] Nkechi Grajeda, RN 06/24/2025 8:15 AM EDT Clinical Support [facility] [place] [facility] [address] [place] [phone] Nkechi Grajeda, EDD 07/01/2025 7:00 AM EDT Clinical Support [facility] [place] [facility] [address] [place] [phone] Nkechi Grajeda, EDD 07/08/2025 7:00 AM EDT [facility] [place] [facility] [address] [phone] Nkechi Grajeda, EDD 07/15/2025 7:00 AM EDT [facility] [address] [phone] Nkechi Grajeda, EDD 07/22/2025 8:15 AM EDT [facility] [place] [facility] [address] [address] Nkechi Grajeda, EDD 08/19/2025 8:15 AM EDT [facility] [address] [address] Nkechi Grajeda, EDD 09/16/2025 8:15 AM EDT [facility] [address] [address] Nkechi Grajeda RN 10/14/2025 8:15 AM EDT [facility] [address] [address] Nkechi Grajeda, EDD 11/11/2025 8:15 AM EDT Clinical [facility] [address] [address] Nkechi Grajeda, EDD 12/09/2025 8:15 AM EDT [facility] [address] [address] Nkechi Grajeda, EDD documented as of this encounter Visit Diagnoses Not on filedocumented in this encounter Additional Health Concerns Assessment Noted Time PHQ-9 Depression Total Score: 20 12/11/2 025 12:16 PM EDT documented as of this encounter Care Teams Electrical Contacts Adjuster Relationship Specialty Start Date End Date Deloris Tobias NP [address] [address] PCP - General Family Medicine 12/01/24 documented as of this encounter
--- OUTSIDE RECORDS SUMMARY | 2024-12-16 04:26 | XMS_ITS | Encounter Summary ---
Author Organization [facility] Address [address] [place] [address] Care Team Providers Care Supervisor [employer] Name Role Phone Deloris Tobias WASHATERIA ATTENDANT Primary Care Provider [phone] Encounter Details Date Type Department Care Team (Late st Contact Info) Description 12/13/2024 [facility] [address] [place] [phone] Nora Mauricio RN Wound of left leg, [...] [facility] [address] [place] [phone] Merlin Forbes 12/16/2024 11:00 AM EDT Office Visit [facility] [place] [facility] [address] [place] [address] Deloris Tobias, JOHNATHAN [address] [address] 12/16/2024 6:00 PM EDT PACE Home Care / PACE Home Visit Emilee MAHONEY [facility] [address] [place] [phone] My Phillips 12/17/2024 7:00 AM EDT Clinical Support [facility] [address] [place] [phone] Nkechi Grajeda RN 12/17/2024 9:30 AM EDT PACE Home Care / PACE Home Visit Emilee [facility] [address] [place] [phone] Merlin Forbes 12/17/2024 11:00 AM EDT Treatment Emilee MAHONEY MA Occupational Therapy [address] [place] [phone] Tyler Ling OT 12/17/2024 6:00 PM EDT PACE Home Care / PACE Home Visit Emilee [facility] [address] [place] [phone] My Phillips 12/18/2024 10:00 AM EDT PACE Home Care / PACE Home Visit Emilee [facility]ONE[facility] [address] [place] [phone] Merlin Forbes 12/18/2024 6:00 PM EDT PACE Home Care / PACE Home Visit Emilee [facility]ONE[facility] [address] [place] [phone] My Phillips 12/19/2024 10:30 AM EDT PACE Home Care / PACE Home Visit Emilee MAHONEY [facility] [address] [place] [phone] Merlin Forbes 12/19/2024 6:00 PM EDT PACE Home Care / PACE Home Visit Emilee MA[facility]ONEY [facility] [address] [place] [phone] My Phillips 12/20/2024 9:00 AM EDT Appointment [address] [phone] 12/20/2024 9:30 AM EDT PACE Home Care / PACE Home Visit Emilee [facility] [address] [place] [phone] Merlin Forbes 12/20/2024 6:00 PM EDT PACE Home Care / PACE Home Visit Emilee MAHONE[facility] [address] [place] [phone] My Phillips 12/21/2024 8:30 AM EDT PACE Home Care / PACE Home Visit Emilee [facility] [address] [place] [phone] Anabelle Valdez 12/22/2024 8:30 AM EDT PACE Home Care / PACE Home Visit Emilee [facility] [address] [place] [phone] Anabelle Valdez 12/23/2024 9:30 AM EDT PACE Home Care / PACE Home Visit Emilee MA[facility]ONEY [facility] [address] [place] [phone] Merlin Forbes 12/23/2024 6:00 PM EDT PACE Home Care / PACE Home Visit Emilee MAHONEY [facility] [address] [place] [phone] My Phillips 12/24/2024 7:00 AM EDT Clinical Support [facility] [address] [place] [phone] Nkechi Grajeda RN 12/24/2024 9:30 AM EDT PACE Home Care / PACE Home Visit Emilee [facility] [address] [place] [phone] Merlin Forbes 12/24/2024 6:00 PM EDT PACE Home Care / PACE Home Visit Emilee [facility]ONE[facility] [address] [place] [phone] My Phillips 12/25/2024 10:00 AM EDT PACE Home Care / PACE Home Visit Emilee [facility] [address] [place] [phone] Merlin Forbes 12/25/2024 6:00 PM EDT PACE Home Care / PACE Home Visit Emilee MAHONEY [facility] [address] [place] [phone] My Phillips 12/26/2024 10:40 AM EDT Clinical Support Emilee MAHONEY MA [address] [place] [phone] 12/26/2024 6:00 PM EDT PACE Home Care / PACE Home Visit Emilee MAHONEY [facility] [address] [place] [phone] My Phillips 12/27/2024 9:30 AM EDT PACE Home Care / PACE Home Visit Emilee [facility]ONE[facility] [address] [place] [phone] Merlin Forbes 12/27/2024 6:00 PM EDT PACE Home Care / PACE Home Visit Emilee [facility]ONE[facility] [address] [place] [phone] My Phillips 12/30/2024 9:30 AM EDT PACE Home Care / PACE Home Visit Emilee MAHONEY [facility] [address] [place] [address] Merlin Forbes 12/30/2024 6:00 PM EDT PACE Home Care / PACE Home Visit Emilee MA[facility]ONE[facility] [address] [place] [address] My Phillips 12/31/2024 7:00 AM EDT Clinical Support [facility] [address] [place] [phone] Nkechi Grajeda RN 12/31/2024 9:30 AM EDT PACE Home Care / PACE Home Visit Emilee [facility] [address] [place] [phone] Merlin Forbes 12/31/2024 10:00 AM EDT Ancillary Procedure [facility] [address] [place] [address] 12/31/2024 6:00 PM EDT PACE Home Care / PACE Home Visit Emilee MAHONEY [facility] [address] [place] [phone] My Phillips 01/01/2025 10:00 AM EDT PACE Home Care / PACE Home Visit Emilee MAHONEY [facility] [address] [place] [phone] Merlin Forbes 01/01/2025 6:00 PM EDT PACE Home Care / PACE Home Visit Emilee MA[facility]ONE[facility] [address] [place] [phone] My Phillips 01/02/2025 10:30 AM EDT PACE Home Care / PACE Home Visit Emilee MAHONEY [facility] [address] [place] [address] [place] [address] Merlin Forbes 01/02/2025 3:00 PM EDT Clinical Support Emilee MAHONEY [place] [address] [place] [address] 01/02/2025 6:00 PM EDT PACE Home Care / PACE Home Visit Emilee MA[facility]ONEY [facility] [address] [place] [phone] My Phillips 01/03/2025 9:30 AM EDT PACE Home Care / PACE Home Visit Emilee MAHONEY [facility] [address] [place] [phone] Merlin Forbes 01/03/2025 6:00 PM EDT PACE Home Care / PACE Home Visit Emilee MAHONEY [facility] [address] [place] [phone] My Phillips 01/04/2025 8:30 AM EDT PACE Home Care / PACE Home Visit Emilee MA[facility]ONE[facility] [address] [place] [phone] Anabelle Valdez 01/05/2025 8:30 AM EDT PACE Home Care / PACE Home Visit Emilee [facility] [address] [place] [phone] Anabelle Valdez 01/06/2025 9:30 AM EDT PACE Home Care / PACE Home Visit Emilee MA[facility] [address] [place] [phone] Merlin Forbes 01/06/2025 6:00 PM EDT PACE Home Care / PACE Home Visit Emilee [facility]ONE[facility] [address] [place] [phone] My Phillips 01/07/2025 7:00 AM EDT Clinical Support [facility] [address] [place] [phone] Nkechi Grajeda, EDD 01/07/2025 8:15 AM EDT Clinical Support [facility] [address] [place] [phone] Nkechi Grajeda, EDD 01/07/2025 9:30 AM EDT PACE Home Care / PACE Home Visit Emilee [facility] [address] [place] [phone] Merlin Forbes 01/07/2025 6:00 PM EDT PACE Home Care / PACE Home Visit Emilee MA[facility]ONEY [facility] [address] [place] [phone] My Phillips 01/08/2025 10:00 AM EDT PACE Home Care / PACE Home Visit Emilee MA[facility]ONEY [facility] [address] [place] [phone] Merlin Forbes 01/08/2025 6:00 PM EDT PACE Home Care / PACE Home Visit Emilee MAHONEY [facility] [address] [place] [phone] My Phillips 01/09/2025 10:30 AM EDT PACE Home Care / PACE Home Visit Emilee MAHONEY [facility] [address] [place] [phone] Merlin Forbes 01/09/2025 6:00 PM EDT PACE Home Care / PACE Home Visit Emilee MA[facility]ONEY [facility] [address] [place] [phone] My Phillips 01/10/2025 9:30 AM EDT PACE Home Care / PACE Home Visit Emilee MAHONEY [facility] [address] [place] [phone] Merlin Forbes 01/10/2025 10:00 AM EDT Clinical Support Emilee MAHONEY [place] [address] [place] [address] 01/10/2025 6:00 PM EDT PACE Home Care / PACE Home Visit Emilee MAHONEY [facility] [address] [place] [address] My Phillips 01/13/2025 9:30 AM EDT PACE Home Care / PACE Home Visit Emilee MAHONEY [facility] [address] [place] [address] Merlin Forbes 01/13/2025 6:00 PM EDT PACE Home Care / PACE Home Visit Emilee MA[facility]ONEY [facility] [address] [place] [address] My Phillips 01/14/2025 7:00 AM EDT Clinical Support [facility] [place] [facility] [address] [place] [address] Nkechi Grajeda, EDD 01/14/2025 9:30 AM EDT PACE Home Care / PACE Home Visit Emilee [facility] [address] [place] [address] Merlin Forbes 01/14/2025 6:00 PM EDT PACE Home Care / PACE Home Visit Emilee MAHONEY [facility] [address] [place] [address] My Phillips 01/15/2025 10:00 AM EDT PACE Home Care / PACE Home Visit Emilee MAHONEY [facility] [address] [place] [address] Merlin Forbes 01/15/2025 6:00 PM EDT PACE Home Care / PACE Home Visit Emilee MAHONEY [facility] [address] [place] [address] My Phillips 01/16/2025 10:30 AM EDT PACE Home Care / PACE Home Visit Emilee MA[facility]ONEY [facility] [address] [place] [address] Merlin Forbes 01/16/2025 6:00 PM EDT PACE Home Care / PACE Home Visit Emilee MAHONEY [facility] [address] [place] [phone] My Phillips 01/17/2025 9:30 AM EDT PACE Home Care / PACE Home Visit Emilee MAHONEY [facility] [address] [place] [phone] Merlin Forbes 01/17/2025 6:00 PM EDT PACE Home Care / PACE Home Visit Emilee MAHONEY [facility] [address] [place] [phone] My Phillips 01/18/2025 8:30 AM EDT PACE Home Care / PACE Home Visit Emilee MAHONEY [facility] [address] [place] [phone] Anabelle Valdez 01/19/2025 8:30 AM EST PACE Home Care / PACE Home Visit Emilee MAHONEY [facility] [address] [place] [phone] Anabelle Valdez 01/20/2025 9:30 AM EST PACE Home Care / PACE Home Visit Emilee MAHONEY [facility] [address] [place] [phone] Merlin Forbes 01/20/2025 6:00 PM EST PACE Home Care / PACE Home Visit Emilee MAHONEY [facility] [address] [place] [phone] My Phillips 01/21/2025 7:00 AM EST Clinical Support [facility] [address] [place] [phone] Nkechi Grajeda RN 01/21/2025 9:30 AM EST PACE Home Care / PACE Home Visit [facility] [place] [facility] [address] [place] [address] Merlin Forbes 01/21/2025 10:45 AM EST Clinical Support Emilee MAHONEY [place] [address] [place] [address] 01/21/2025 6:00 PM EST PACE Home Care / PACE Home Visit Emilee MAHONEY [facility] [address] [place] [address] My Phillips 01/22/2025 10:00 AM EST PACE Home Care / PACE Home Visit Emilee [facility] [address] [place] [phone] Merlin Forbes 01/22/2025 6:00 PM EST PACE Home Care / PACE Home Visit Emilee MA[facility]ONEY [facility] [address] [place] [phone] My Phillips 01/23/2025 10:30 AM EST PACE Home Care / PACE Home Visit Emilee MAHONEY [facility] [address] [place] [phone] Merlin Forbes 01/23/2025 6:00 PM EST PACE Home Care / PACE Home Visit Emilee [facility] [address] [place] [phone] My Phillips 01/24/2025 9:30 AM EST PACE Home Care / PACE Home Visit Emilee [facility] [address] [place] [phone] Merlin Forbes 01/24/2025 6:00 PM EST PACE Home Care / PACE Home Visit Emilee [facility]Y [facility] [address] [place] [address] My Phillips 01/27/2025 9:30 AM EST PACE Home Care / PACE Home Visit [facility] [place] [facility] [address] [place] [address] Merlin Forbes 01/27/2025 6:00 PM EST PACE Home Care / PACE Home Visit Emilee MAHONEY [facility] [address] [place] [address] My Phillips 01/28/2025 7:00 AM EST Clinical Support [facility] [place] [facility] [address] [place] [address] Nkechi Grajeda RN 01/28/2025 9:30 AM EST PACE Home Care / PACE Home Visit Em[facility] [address] [place] [address] Merlin Forbes 01/28/2025 6:00 PM EST PACE Home Care / PACE Home Visit Em[facility] [address] [place] [address] My Phillips 01/29/2025 10:00 AM EST PACE Home Care / PACE Home Visit Em[facility] [address] [place] [phone] Merlin Forbes 01/29/2025 6:00 PM EST PACE Home Care / PACE Home Visit Emilee [facility] [address] [place] [phone] My Phillips 01/30/2025 10:30 AM EST PACE Home Care / PACE Home Visit Emilee MA[facility] [address] [place] [address] Merlin Forbes 01/30/2025 6:00 PM EST PACE Home Care / PACE Home Visit Emilee [facility] [address] [place] [address] My Phillips 01/31/2025 9:30 AM EST PACE Home Care / PACE Home Visit Em[facility] [address] [place] [address] Merlin Forbes 01/31/2025 11:00 AM EST PACE External Visit Emilee MAHONEY [place] [address] [place] [address] 01/31/2025 6:00 PM EST PACE Home Care / PACE Home Visit Em[facility] [address] [place] [address] My Phillips 02/01/2025 8:30 AM EST PACE Home Care / PACE Home Visit Em[facility] [address] [place] [phone] Anabelle Valdez 02/02/2025 8:30 AM EST PACE Home Care / PACE Home Visit [facility] [address] [place] [phone] Anabelle Valdez 02/03/2025 9:30 AM EST PACE Home Care / PACE Home Visit [facility] [address] [place] [phone] Merlin Forbes 02/03/2025 6:00 PM EST PACE Home Care / PACE Home Visit Em[facility] [address] [place] [phone] My Phillips 02/04/2025 7:00 AM EST Clinical Support [facility] [place] [facility] [address] [place] [phone] Nkechi Grajeda, RN 02/04/2025 8:15 AM EST Clinical Support [facility] [place] [facility] [address] [place] [phone] Nkechi Grajeda, RN 02/04/2025 9:30 AM EST PACE Home Care / PACE Home Visit [facility] [address] [place] [phone] Merlin Forbes 02/04/2025 6:00 PM EST PACE Home Care / PACE Home Visit [facility] [place] [facility] [address] [place] [phone] My Phillips 02/05/2025 10:00 AM EST PACE Home Care / PACE Home Visit [facility] [place] [facility] [address] [place] [phone] Merlin Forbes 02/05/2025 6:00 PM EST PACE Home Care / PACE Home Visit [facility] [place] [facility] [address] [place] [address] My Phillips 02/06/2025 10:30 AM EST PACE Home Care / PACE Home Visit [facility] [place] [facility] [address] [place] [phone] Merlin Forbes 02/06/2025 6:00 PM EST PACE Home Care / PACE Home Visit [facility] [place] [facility] [address] [place] [phone] My Phillips 02/07/2025 9:30 AM EST PACE Home Care / PACE Home Visit [facility] [place] [facility] [address] [place] [phone] Merlin Forbes 02/07/2025 6:00 PM EST PACE Home Care / PACE Home Visit [facility] [place] [facility] [address] [place] [phone] My Phillips 02/10/2025 9:30 AM EST PACE Home Care / PACE Home Visit [facility] [place] [facility] [address] [place] [phone] Merlin Forbes 02/10/2025 6:00 PM EST PACE Home Care / PACE Home Visit [facility] [place] [facility] [address] [place] [phone] My Phillips 02/11/2025 7:00 AM EST Clinical Support [facility] [place] [facility] [address] [place] [phone] Nkechi Grajeda, EDD 02/11/2025 9:30 AM EST PACE Home Care / PACE Home Visit [facility] [address] [place] [phone] Merlin Forbes 02/11/2025 6:00 PM EST PACE Home Care / PACE Home Visit [facility] [address] [place] [phone] My Phillips 02/12/2025 10:00 AM EST PACE Home Care / PACE Home Visit [facility] [address] [place] [phone] Merlin Forbes 02/12/2025 6:00 PM EST PACE Home Care / PACE Home Visit [facility] [address] [place] [phone] My Phillips 02/13/2025 10:30 AM EST PACE Home Care / PACE Home Visit [facility] [address] [place] [phone] Merlin Forbes 02/13/2025 6:00 PM EST PACE Home Care / PACE Home Visit [facility] [address] [place] [phone] My Phillips 02/18/2025 7:00 AM EST Clinical Support [facility] [place] [facility] [address] [place] [phone] Nkechi Grajeda, EDD 02/25/2025 7:00 AM EST Clinical Support [facility] [place] [facility] [address] [place] [phone] Nkechi Grajeda, EDD 02/27/2025 10:40 AM EST Clinical Support [facility] [place] [address] [place] [phone] 03/04/2025 7:00 AM EST Clinical Support [facility] [place] [address] [address] Nkechi Grajeda, EDD 03/04/2025 8:15 AM EST Clinical Support [facility] [place] [facility] [address] [place] [phone] Nkechi Grajeda, EDD 03/11/2025 7:00 AM EST Clinical Support [facility] [place] [address] [address] Nkechi Grajeda, EDD 03/18/2025 7:00 AM EST Clinical Support [facility] [place] [address] [address] Nkechi Grajeda, EDD 03/25/2025 7:00 AM EST Clinical Support [facility] [place] [address] [address] Nkechi Grajeda, EDD 04/01/2025 7:00 AM EST Clinical Support [facility] [place] [address] [address] Nkechi Grajeda, EDD 04/01/2025 8:15 AM EST Clinical Support [facility] [place] [facility] [address] [place] [phone] Nkechi Grajeda, RN 04/08/2025 7:00 AM EST Clinical Support [facility] [place] [facility] [address] [place] [phone] Nkechi Grajeda, EDD 04/14/2025 9:25 AM EST Office Visit [facility] [address] [facility] [address] [place] [address] Dillon Mendosa MD [address] [place] [address] [place] [phone] 04/15/2025 7:00 AM EST Clinical Support [facility] [place] [address] [address] Nkechi Grajeda, EDD 04/22/2025 7:00 AM EST Clinical Support [facility] [place] [address] [address] Nkechi Grajeda, EDD 04/29/2025 7:00 AM EST Clinical Support [facility] [place] [address] [address] Nkechi Grajeda, EDD 04/29/2025 8:15 AM EST Clinical Support [facility] [place] [address] [address] Nkechi Grajeda, EDD 05/06/2025 7:00 AM EST Clinical Support [facility] [place] [address] [address] Nkechi Grajeda, EDD 05/13/2025 7:00 AM EST Clinical Support [facility] [place] [address] [address] Nkechi Grajeda, EDD 05/20/2025 7:00 AM EST Clinical Support [facility] [place] [address] [address] Nkechi Grajeda, EDD 05/27/2025 7:00 AM EDT Clinical Support [facility] [place] [address] [address] Nkechi Grajeda, EDD 05/27/2025 8:15 AM EDT Clinical Support [facility] [place] [address] [address] Nkechi Grajeda, EDD 06/03/2025 7:00 AM EDT Clinical Support [facility] [place] [facility] [address] [place] [phone] Nkechi Grajeda, EDD 06/10/2025 7:00 AM EDT Clinical Support [facility] [place] [facility] [address] [place] [phone] Nkechi Grajeda, EDD 06/17/2025 7:00 AM EDT Clinical Support [facility] [place] [facility] [address] [place] [phone] Nkechi Grajeda, EDD 06/24/2025 7:00 AM EDT Clinical Support [facility] [place] [facility] [address] [place] [phone] Nkechi Grajeda, EDD 06/24/2025 8:15 AM EDT Clinical Support [facility] [place] [address] [address] Nkechi Grajeda, EDD 07/01/2025 7:00 AM EDT Clinical Support [facility] [place] [facility] [address] [place] [phone] Nkechi Grajeda, EDD 07/08/2025 7:00 AM EDT Clinical Support [facility] [place] [facility] [address] [place] [phone] Nkechi Grajeda, EDD 07/15/2025 7:00 AM EDT Clinical Support [facility] [place] [facility] [address] [place] [phone] Nkechi Grajeda, EDD 07/22/2025 8:15 AM EDT Clinical Support [facility] [place] [facility] [address] [place] [phone] Nkechi Grajeda, RN 08/19/2025 8:15 AM EDT Clinical Support [facility] [place] [facility] [address] [place] [phone] Nkechi Grajeda, EDD 09/16/2025 8:15 AM EDT Clinical Support [address] [address] Nkechi Grajeda, EDD 10/14/2025 8:15 AM EDT Clinical Support [address] [address] Nkechi Grajeda, EDD 11/11/2025 8:15 AM EDT Clinical Support [address] [address] Nkechi Grajeda RN 12/09/2025 8:15 AM EDT Clinical Support [address] [address] Nkechi Grajeda, EDD documented as of this [...] documented as of this encounter Care Teams Supervisor [employer] Relationship Specialty Start Date End Date Deloris Tobias NP [address] [place] [id number] PCP - General Family Medicine 12/01/24 documented as of this encounter
--- OUTSIDE RECORDS SUMMARY | 2024-12-16 04:26 | XMS_ITS | Encounter Summary ---
Author Organization [facility] Address [address] [place] [address] Care Team Providers Care Textile Conservator Name Role Phone Deloris Tobias STONE LATHE OPERATOR Primary Care Provider [phone] Encounter Details Date Type Department Care Team (Late st Contact Info) Description 12/11/2024 [facility] [address] [place] [address] Nora Mauricio RN Wound of [...] Risk Indicated 12/11/2024 9:44 PM EDT Geronimo Maen RN * Cannon Suicide Severity Rating Scale (Screener/Recent Self-Report) Question [...] [facility] [address] [place] [phone] Merlin Forbes 12/16/2024 11:00 AM EDT Office Visit [facility] [place] [facility] [address] [place] [phone] Deloris Tobias NP [address] [address] 12/16/2024 6:00 PM EDT PACE Home Care / PACE Home Visit Emilee [facility] [address] [place] [phone] My Phillips 12/17/2024 7:00 AM EDT Clinical Support [facility] [address] [place] [phone] Nkechi Grajeda, EDD 12/17/2024 9:30 AM EDT PACE Home Care / PACE Home Visit Em[facility] [address] [place] [phone] Merlin Forbes 12/17/2024 11:00 AM EDT [facility] [address] [place] [phone] Tyler Ling OT 12/17/2024 6:00 PM EDT PACE Home Care / PACE Home Visit Emilee [facility] [address] [place] [phone] My Phillips 12/18/2024 10:00 AM EDT PACE Home Care / PACE Home Visit Em[facility] [address] [place] [phone] Merlin Forbes 12/18/2024 6:00 PM EDT PACE Home Care / PACE Home Visit Emilee [facility] [place] [facility] [address] [place] [phone] My Phillips 12/19/2024 10:30 AM EDT PACE Home Care / PACE Home Visit Emilee [facility] [address] [place] [phone] Merlin Forbes 12/19/2024 6:00 PM EDT PACE Home Care / PACE Home Visit Emilee [facility] [address] [place] [phone] My Phillips 12/20/2024 9:00 AM EDT Appointment [address] [address] 12/20/2024 9:30 AM EDT P[facility] Home Care / PACE Home Visit Em[facility] [address] [place] [phone] Merlin Forbes 12/20/2024 6:00 PM EDT PACE Home Care / PACE Home Visit Emilee [facility] [address] [place] [phone] My Phillips 12/21/2024 8:30 AM EDT PACE Home Care / PACE Home Visit Emilee [facility] [address] [place] [phone] Anabelle Valdez 12/22/2024 8:30 AM EDT PACE Home Care / PACE Home Visit Em[facility] [address] [place] [address] Anabelle Valdez 12/23/2024 9:30 AM EDT PACE Home Care / PACE Home Visit Emilee [facility] [place] [facility] [address] [place] [address] Merlin Forbes 12/23/2024 6:00 PM EDT PACE Home Care / PACE Home Visit Emilee [facility] [address] [place] [phone] My Phillips 12/24/2024 7:00 AM EDT Clinical Support [facility] [address] [place] [phone] Nkechi Grajeda RN 12/24/2024 9:30 AM EDT PACE Home Care / PACE Home Visit Emilee [facility] [place] [facility] [address] [place] [phone] Merlin Forbes 12/24/2024 6:00 PM EDT PACE Home Care / PACE Home Visit Emilee [facility] [place] [facility] [address] [place] [phone] My Phillips 12/25/2024 10:00 AM EDT PACE Home Care / PACE Home Visit Emilee [facility] [address] [place] [phone] Merlin Forbes 12/25/2024 6:00 PM EDT PACE Home Care / PACE Home Visit Emilee [facility] [place] [facility] [address] [place] [address] My Phillips 12/26/2024 10:40 AM EDT Clinical Support Emilee MAHONEY [place] [address] [place] [address] 12/26/2024 6:00 PM EDT PACE Home Care / PACE Home Visit Emilee [facility] [address] [place] [phone] My Phillips 12/27/2024 9:30 AM EDT PACE Home Care / PACE Home Visit Emilee [facility] [place] [facility] [address] [place] [phone] Merlin Forbes 12/27/2024 6:00 PM EDT PACE Home Care / PACE Home Visit Emilee [facility] [place] [facility] [address] [place] [phone] My Phillips 12/30/2024 9:30 AM EDT PACE Home Care / PACE Home Visit Emilee [facility] [address] [place] [phone] Merlin Forbes 12/30/2024 6:00 PM EDT PACE Home Care / PACE Home Visit Emilee [facility] [address] [place] [phone] My Phillips 12/31/2024 7:00 AM EDT Clinical Support [facility] [address] [place] [phone] Nkechi Grajeda RN 12/31/2024 9:30 AM EDT PACE Home Care / PACE Home Visit Emilee [facility] [place] [facility] [address] [place] [phone] Merlin Forbes 12/31/2024 10:00 AM EDT Ancillary Procedure [facility] [address] [facility] [address] [place] [address] 12/31/2024 6:00 PM EDT PACE Home Care / PACE Home Visit Emilee [facility]ONE[facility] [place] [facility] [address] [place] [address] My Phillips 01/01/2025 10:00 AM EDT PACE Home Care / PACE Home Visit Em[facility] [place] [facility] [address] [place] [address] Merlin Forbes 01/01/2025 6:00 PM EDT PACE Home Care / PACE Home Visit Em[facility] [address] [place] [address] My Phillips 01/02/2025 10:30 AM EDT PACE Home Care / PACE Home Visit Emilee [facility] [address] [place] [phone] Merlin Forbes 01/02/2025 3:00 PM EDT Clinical Support Emilee MAHONEY MA [address] [place] [phone] 01/02/2025 6:00 PM EDT PACE Home Care / PACE Home Visit Emilee [facility] [place] [facility] [address] [place] [phone] My Phillips 01/03/2025 9:30 AM EDT PACE Home Care / PACE Home Visit Em[facility] [place] [facility] [address] [place] [phone] Merlin oFrbes 01/03/2025 6:00 PM EDT PACE Home Care / PACE Home Visit Emilee [facility] [address] [place] [phone] My Phillips 01/04/2025 8:30 AM EDT PACE Home Care / PACE Home Visit Emilee [facility] [address] [place] [phone] Anabelle Valdez 01/05/2025 8:30 AM EDT PACE Home Care / PACE Home Visit Em[facility] [address] [place] [phone] Anabelle Valdez 01/06/2025 9:30 AM EDT PACE Home Care / PACE Home Visit Em[facility] [address] [place] [address] Merlin Forbes 01/06/2025 6:00 PM EDT PACE Home Care / PACE Home Visit Emilee [facility] [address] [place] [phone] My Phillips 01/07/2025 7:00 AM EDT Clinical Support [facility] [address] [place] [phone] Nkechi Grajeda, EDD 01/07/2025 8:15 AM EDT Clinical Support [facility] [address] [place] [phone] Nkechi Grajeda, EDD 01/07/2025 9:30 AM EDT PACE Home Care / PACE Home Visit Em[facility] [address] [place] [phone] Merlin Forbes 01/07/2025 6:00 PM EDT PACE Home Care / PACE Home Visit Em[facility] [address] [place] [phone] My Phillips 01/08/2025 10:00 AM EDT PACE Home Care / PACE Home Visit Em[facility] [address] [place] [phone] Merlin Forbes 01/08/2025 6:00 PM EDT PACE Home Care / PACE Home Visit Em[facility] [address] [place] [phone] My Phillips 01/09/2025 10:30 AM EDT PACE Home Care / PACE Home Visit Em[facility] [address] [place] [address] Merlin Forbes 01/09/2025 6:00 PM EDT PACE Home Care / PACE Home Visit Em[facility] [address] [place] [phone] My Phillips 01/10/2025 9:30 AM EDT PACE Home Care / PACE Home Visit Em[facility] [address] [place] [phone] Merlin Forbes 01/10/2025 10:00 AM EDT Clinical Support Emilee MAHONEY MA [address] [place] [phone] 01/10/2025 6:00 PM EDT PACE Home Care / PACE Home Visit Emilee [facility] [place] [facility] [address] [place] [phone] My Phillips 01/13/2025 9:30 AM EDT PACE Home Care / PACE Home Visit Em[facility] [address] [place] [phone] Merlin Forbes 01/13/2025 6:00 PM EDT PACE Home Care / PACE Home Visit Emilee [facility] [place] [facility] [address] [place] [phone] My Phillips 01/14/2025 7:00 AM EDT Clinical Support [facility] [address] [place] [phone] Nkechi Grajeda, EDD 01/14/2025 9:30 AM EDT PACE Home Care / PACE Home Visit Em[facility] [address] [place] [phone] Merlin Forbes 01/14/2025 6:00 PM EDT PACE Home Care / PACE Home Visit Em[facility] [address] [place] [phone] My Phillips 01/15/2025 10:00 AM EDT PACE Home Care / PACE Home Visit Em[facility] [address] [place] [phone] Merlin Forbes 01/15/2025 6:00 PM EDT PACE Home Care / PACE Home Visit Em[facility] [address] [place] [phone] My Phillips 01/16/2025 10:30 AM EDT PACE Home Care / PACE Home Visit Em[facility] [address] [place] [phone] Merlin Forbes 01/16/2025 6:00 PM EDT PACE Home Care / PACE Home Visit Em[facility] [address] [place] [phone] My Phillips 01/17/2025 9:30 AM EDT PACE Home Care / PACE Home Visit Em[facility] [address] [place] [phone] Merlin Forbes 01/17/2025 6:00 PM EDT PACE Home Care / PACE Home Visit Em[facility] [address] [place] [phone] My Phillips 01/18/2025 8:30 AM EDT PACE Home Care / PACE Home Visit Em[facility] [address] [place] [phone] Anabelle Valdez 01/19/2025 8:30 AM EST PACE Home Care / PACE Home Visit Em[facility] [address] [place] [phone] Anabelle Valdez 01/20/2025 9:30 AM EST PACE Home Care / PACE Home Visit Em[facility] [address] [place] [address] Merlin Forbes 01/20/2025 6:00 PM EST PACE Home Care / PACE Home Visit Em[facility] [address] [place] [address] My Phillips 01/21/2025 7:00 AM EST Clinical Support [facility] [address] [place] [address] Nkechi Grajeda RN 01/21/2025 9:30 AM EST PACE Home Care / PACE Home Visit [facility] [address] [place] [address] Merlin Forbse 01/21/2025 10:45 AM EST Clinical Support Emilee MAHONEY [place] [address] [place] [address] 01/21/2025 6:00 PM EST PACE Home Care / PACE Home Visit Em[facility] [address] [place] [address] My Phililps 01/22/2025 10:00 AM EST PACE Home Care / PACE Home Visit Em[facility] [address] [place] [address] Merlin Forbes 01/22/2025 6:00 PM EST PACE Home Care / PACE Home Visit Em[facility] [address] [place] [phone] My Phillips 01/23/2025 10:30 AM EST PACE Home Care / PACE Home Visit Em[facility] [address] [place] [address] Merlin Forbes 01/23/2025 6:00 PM EST PACE Home Care / PACE Home Visit [facility] [place] [facility] [address] [place] [address] My Phillips 01/24/2025 9:30 AM EST PACE Home Care / PACE Home Visit Emilee [facility] [address] [place] [address] Merlin Forbes 01/24/2025 6:00 PM EST PACE Home Care / PACE Home Visit Emilee [facility] [address] [place] [address] My Phillips 01/27/2025 9:30 AM EST PACE Home Care / PACE Home Visit Em[facility] [address] [place] [phone] Merlin Forbes 01/27/2025 6:00 PM EST PACE Home Care / PACE Home Visit Em[facility] [address] [place] [address] My Phillips 01/28/2025 7:00 AM EST Clinical Support [facility] [address] [place] [phone] Nkechi Grajeda RN 01/28/2025 9:30 AM EST PACE Home Care / PACE Home Visit [facility] [address] [place] [phone] Merlin Forbes 01/28/2025 6:00 PM EST PACE Home Care / PACE Home Visit Em[facility] [address] [place] [phone] My Phillips 01/29/2025 10:00 AM EST PACE Home Care / PACE Home Visit [facility] [address] [place] [address] Merlin Forbes 01/29/2025 6:00 PM EST PACE Home Care / PACE Home Visit [facility] [place] [facility] [address] [place] [address] My Phillips 01/30/2025 10:30 AM EST PACE Home Care / [facility] Home Visit [facility] [place] [facility] [address] [place] [address] Merlin Forbes 01/30/2025 6:00 PM EST PACE Home Care / PACE Home Visit [facility] [place] [facility] [address] [place] [address] My Phillips 01/31/2025 9:30 AM EST PACE Home Care / PACE Home Visit [facility] [place] [facility] [address] [place] [address] Merlin Forbes 01/31/2025 11:00 AM EST PACE External Visit [facility] [place] [address] [place] [address] 01/31/2025 6:00 PM EST PACE Home Care / [facility] Home Visit [facility] [place] [facility] [address] [place] [address] My Phillips 02/01/2025 8:30 AM EST PACE Home Care / [facility] Home Visit [facility] [place] [facility] [address] [place] [address] Anabelle Valdez 02/02/2025 8:30 AM EST PACE Home Care / [facility] Home Visit [facility] [place] [facility] [address] [place] [phone] Anabelle Valdez 02/03/2025 9:30 AM EST PACE Home Care / [facility] Home Visit [facility] [place] [facility] [address] [place] [address] Merlin Forbes 02/03/2025 6:00 PM EST PACE Home Care / [facility] Home Visit [facility] [place] [facility] [address] [place] [address] My Phillips 02/04/2025 7:00 AM EST Clinical Support [facility] [address] [place] [address] Nkechi Grajeda, EDD 02/04/2025 8:15 AM EST Clinical Support [facility] [place] [facility] [address] [place] [address] Nkechi Grajeda, EDD 02/04/2025 9:30 AM EST PACE Home Care / PACE Home Visit [facility] [address] [place] [phone] Merlin Forbes 02/04/2025 6:00 PM EST PACE Home Care / PACE Home Visit [facility] [address] [place] [phone] My Phillips 02/05/2025 10:00 AM EST PACE Home Care / PACE Home Visit [facility] [address] [place] [phone] Merlin Forbes 02/05/2025 6:00 PM EST PACE Home Care / PACE Home Visit [facility] [address] [place] [phone] My Phillips 02/06/2025 10:30 AM EST PACE Home Care / PACE Home Visit [facility] [address] [place] [phone] Merlin Forbes 02/06/2025 6:00 PM EST PACE Home Care / PACE Home Visit [facility] [address] [place] [address] My Phillips 02/07/2025 9:30 AM EST PACE Home Care / [facility] Home Visit [facility] [place] [facility] [address] [place] [address] Merlin Forbes 02/07/2025 6:00 PM EST PACE Home Care / PACE Home Visit [facility] [address] [place] [address] My Phillips 02/10/2025 9:30 AM EST PACE Home Care / PACE Home Visit [facility] [address] [place] [address] Merlin Forbes 02/10/2025 6:00 PM EST PACE Home Care / PACE Home Visit [facility] [address] [place] [phone] My Phillips 02/11/2025 7:00 AM EST Clinical Support [facility] [place] [facility] [address] [place] [address] Nkcehi Grajeda RN 02/11/2025 9:30 AM EST PACE Home Care / PACE Home Visit [facility] [address] [place] [phone] Merlin Forbes 02/11/2025 6:00 PM EST PACE Home Care / PACE Home Visit [facility] [address] [place] [phone] My Phillips 02/12/2025 10:00 AM EST PACE Home Care / PACE Home Visit [facility] [address] [place] [address] Merlin Forbes 02/12/2025 6:00 PM EST PACE Home Care / PACE Home Visit [facility] [address] [place] [address] My Phillips 02/13/2025 10:30 AM EST PACE Home Care / PACE Home Visit [facility] [place] [facility] [address] [place] [phone] Merlin Forbes 02/13/2025 6:00 PM EST P[facility] Home Care / [facility] Home Visit [facility] [place] [facility] [address] [place] [phone] My Phillips 02/18/2025 7:00 AM EST Clinical Support [facility] [place] [facility] [address] [place] [address] Nkechi Grajeda, EDD 02/25/2025 7:00 AM EST Clinical Support [facility] [place] [facility] [address] [place] [phone] Nkechi Grajeda, EDD 02/27/2025 10:40 AM EST Clinical Support [facility] [place] [address] [place] [phone] 03/04/2025 7:00 AM EST Clinical Support [facility] [place] [facility] [address] [place] [phone] Nkechi Grajeda, EDD 03/04/2025 8:15 AM EST Clinical Support [facility] [place] [facility] [address] [place] [phone] Nkechi Grajeda, EDD 03/11/2025 7:00 AM EST Clinical Support [facility] [place] [facility] [address] [place] [phone] Nkechi Grajeda, EDD 03/18/2025 7:00 AM EST Clinical Support [facility] [place] [facility] [address] [place] [phone] Nkechi Grajeda, RN 03/25/2025 7:00 AM EST Clinical Support [facility] [place] [facility] [address] [place] [phone] Nkechi Grajeda, RN 04/01/2025 7:00 AM EST Clinical Support [facility] [place] [facility] [address] [place] [address] Nkechi Grajeda, EDD 04/01/2025 8:15 AM EST Clinical Support [facility] [place] [address] [address] Nkechi Grajeda, EDD 04/08/2025 7:00 AM EST Clinical Support [facility] [address] [address] Nkechi Grajeda, EDD 04/14/2025 9:25 AM EST Office Visit [facility] [address] [place] [address] Dillon Mendosa MD [address] [place] [address] [place] [address] 04/15/2025 7:00 AM EST Clinical Support [facility] [place] [address] [address] Nkechi Grajeda, EDD 04/22/2025 7:00 AM EST Clinical Support [facility] [place] [facility] [address] [address] Nkechi Grajeda, EDD 04/29/2025 7:00 AM EST Clinical Support [facility] [place] [address] [address] Nkechi Grajeda, EDD 04/29/2025 8:15 AM EST Clinical Support [facility] [place] [facility] [address] [address] Nkechi Grajeda, EDD 05/06/2025 7:00 AM EST Clinical Support [facility] [place] [facility] [address] [address] Nkechi Grajeda, EDD 05/13/2025 7:00 AM EST Clinical Support [facility] [place] [facility] [address] [address] Nkechi Grajeda, EDD 05/20/2025 7:00 AM EST Clinical Support [facility] [place] [facility] [address] [place] [phone] Nkechi Grajeda, EDD 05/27/2025 7:00 AM EDT Clinical Support [facility] [place] [facility] [address] [place] [phone] Nkechi Grajeda, EDD 05/27/2025 8:15 AM EDT Clinical Support [facility] [place] [facility] [address] [place] [phone] Nkechi Grajeda, EDD 06/03/2025 7:00 AM EDT Clinical Support [facility] [place] [facility] [address] [place] [phone] Nkechi Grajeda, EDD 06/10/2025 7:00 AM EDT Clinical Support [facility] [place] [address] [address] Nkechi Grajeda, EDD 06/17/2025 7:00 AM EDT Clinical Support [facility] [place] [facility] [address] [place] [phone] Nkechi Grajeda, EDD 06/24/2025 7:00 AM EDT Clinical Support [facility] [place] [facility] [address] [place] [phone] Nkechi Grajeda, EDD 06/24/2025 8:15 AM EDT Clinical Support [facility] [place] [facility] [address] [place] [phone] Nkechi Grajeda, RN 07/01/2025 7:00 AM EDT Clinical Support [facility] [place] [facility] [address] [place] [phone] Nkechi Grajeda, EDD 07/08/2025 7:00 AM EDT Clinical Support [facility] [place] [facility] [address] [place] [phone] Nkechi Grajeda RN 07/15/2025 7:00 AM EDT Clinical Support [address] [address] Nkechi Grajeda, EDD 07/22/2025 8:15 AM EDT Clinical Support [address] [address] Nkechi Grajeda, EDD 08/19/2025 8:15 AM EDT Clinical Support [address] [address] Nkechi Grajeda, EDD 09/16/2025 8:15 AM EDT Clinical Support [address] [address] Nkechi Grajeda RN 10/14/2025 8:15 AM EDT Clinical Support [address] [address] Nkechi Grajeda RN 11/11/2025 8:15 AM EDT Clinical Support [address] [address] Nkechi Grajeda, EDD 12/09/2025 8:15 AM EDT Clinical Support [address] [phone] Nkechi Grajeda, EDD documented as of this encounter Visit Diagnoses Diagnosis Wound of left leg, subsequent encounter Encounter for adjustment or management of cardiac device documented in this encounter Orders PACE Service Orderables Count Last Ordered Date First Ordered Date [facility] 1 12/11/2024 documented in this encounter Additional Health Concerns Assessment Noted Time PHQ-9 Depression Total Score: 20 025 12:16 PM EDT documented as of this encounter Care Teams Textile Conservator Relationship Specialty Start Date End Date Deloris Tobias NP [address] [place] [phone] PCP - General Family Medicine 12/01/24 documented as of this encounter
--- OUTSIDE RECORDS SUMMARY | 2024-12-16 04:26 | XMS_ITS | Encounter Summary ---
Author Organization [facility] Address [address] [place] [address] Care Team Providers Care Application Development Specialist Name Role Phone Deloris Tobias GLOBAL MARKETING COORDINATOR Primary Care Provider Encounter Details Date Type Department Care Team (Late st Contact Info) Description 12/10/2024 [facility] [address] [place] [address] Nora Mauricio RN Wound of [...] 9:44 PM EDT Geronimo Mane RN * [place] Suicide Severity Rating Scale (Screener/Recent Self-Report) Question [...] [facility] [address] [place] [phone] Merlin Forbes 12/16/2024 11:00 AM EDT Office Visit [facility] [place] [facility] [address] [place] [phone] Deloris Tobias NP [address] [address] 12/16/2024 6:00 PM EDT PACE Home Care / PACE Home Visit Emilee [facility]HONEY [facility] [address] [place] [phone] My Phillips 12/17/2024 7:00 AM EDT Clinical Support [facility] [address] [place] [phone] Nkechi Grajeda, EDD 12/17/2024 9:30 AM EDT PACE Home Care / PACE Home Visit Emilee [facility] [address] [place] [phone] Merlin Forbes 12/17/2024 11:00 AM EDT Treatment [facility] Occupational Therapy [address] [place] [phone] Tyler Ling OT 12/17/2024 6:00 PM EDT PACE Home Care / PACE Home Visit Emilee [facility] [address] [place] [phone] My Phillips 12/18/2024 10:00 AM EDT PACE Home Care / PACE Home Visit Emilee MAHONEY [facility] [address] [place] [phone] Merlin Forbes 12/18/2024 6:00 PM EDT PACE Home Care / PACE Home Visit Emilee MA[facility]ONEY [facility] [address] [place] [phone] My Phillips 12/19/2024 10:30 AM EDT PACE Home Care / PACE Home Visit Emilee MAHONEY [facility] [address] [place] [phone] Merlin Forbes 12/19/2024 6:00 PM EDT PACE Home Care / PACE Home Visit Emilee [facility]ONEY [facility] [address] [place] [phone] My Phillips 12/20/2024 9:00 AM EDT Appointment [address] [phone] 12/20/2024 9:30 AM EDT PACE Home Care / PACE Home Visit Emilee MAHONEY [facility] [address] [place] [phone] Merlin Forbes 12/20/2024 6:00 PM EDT PACE Home Care / PACE Home Visit Emilee [facility]HONE[facility] [address] [place] [phone] My Phillips 12/21/2024 8:30 AM EDT PACE Home Care / PACE Home Visit Emilee [facility] [address] [place] [phone] Anabelle Valdez 12/22/2024 8:30 AM EDT PACE Home Care / PACE Home Visit Emilee [facility] [address] [place] [address] Anabelle Valdez 12/23/2024 9:30 AM EDT PACE Home Care / PACE Home Visit Emilee [facility]ONE[facility] [address] [place] [address] Merlin Forbes 12/23/2024 6:00 PM EDT PACE Home Care / PACE Home Visit Emilee [facility]ONE[facility] [address] [place] [phone] My Phillips 12/24/2024 7:00 AM EDT Clinical Support [facility] [address] [place] [phone] Nkechi Grajeda RN 12/24/2024 9:30 AM EDT PACE Home Care / PACE Home Visit Emilee [facility] [address] [place] [phone] Merlin Forbes 12/24/2024 6:00 PM EDT PACE Home Care / PACE Home Visit Emilee [facility]HONEY [facility] [address] [place] [phone] My Phillips 12/25/2024 10:00 AM EDT PACE Home Care / PACE Home Visit Emilee [facility]ONEY [facility] [address] [place] [phone] Merlin Forbes 12/25/2024 6:00 PM EDT PACE Home Care / PACE Home Visit Emilee [facility]ONE[facility] [address] [place] [address] My Phillips 12/26/2024 10:40 AM EDT Clinical Support Emilee MAHONEY MA [address] [place] [address] 12/26/2024 6:00 PM EDT PACE Home Care / PACE Home Visit Emilee [facility]ONE[facility] [address] [place] [phone] My Phillips 12/27/2024 9:30 AM EDT PACE Home Care / PACE Home Visit Emilee [facility]ONEY [facility] [address] [place] [phone] Merlin Forbes 12/27/2024 6:00 PM EDT PACE Home Care / PACE Home Visit Emilee [facility]ONEY [facility] [address] [place] [phone] My Phillips 12/30/2024 9:30 AM EDT PACE Home Care / PACE Home Visit Emilee [facility]ONEY [facility] [address] [place] [phone] Merlin Forbes 12/30/2024 6:00 PM EDT PACE Home Care / PACE Home Visit Emilee [facility]ONEY [facility] [address] [place] [phone] My Phillips 12/31/2024 7:00 AM EDT Clinical Support [facility] [address] [place] [phone] Nkechi Grajeda RN 12/31/2024 9:30 AM EDT PACE Home Care / PACE Home Visit Emilee [facility]ONE[facility] [address] [place] [phone] Merlin Forbes 12/31/2024 10:00 AM EDT Ancillary Procedure [facility] - [address] [facility] [address] [place] [address] 12/31/2024 6:00 PM EDT PACE Home Care / PACE Home Visit Emilee MAHONEY [facility] [address] [place] [address] My Phillips 01/01/2025 10:00 AM EDT PACE Home Care / PACE Home Visit Emilee [facility]ONEY [facility] [address] [place] [address] Merlin Forbes 01/01/2025 6:00 PM EDT PACE Home Care / PACE Home Visit Emilee [facility] [address] [place] [address] My Phillips 01/02/2025 10:30 AM EDT PACE Home Care / PACE Home Visit Eimlee MAHONEY [facility] [address] [place] [phone] Merlin Forbes 01/02/2025 3:00 PM EDT Clinical Support Emilee MAHONEY MA [address] [place] [phone] 01/02/2025 6:00 PM EDT PACE Home Care / PACE Home Visit Emilee [facility]ONEY [facility] [address] [place] [phone] My Phillips 01/03/2025 9:30 AM EDT PACE Home Care / PACE Home Visit Emilee [facility]ONEY [facility] [address] [place] [phone] Merlin Forbes 01/03/2025 6:00 PM EDT PACE Home Care / PACE Home Visit Emilee [facility]ONEY [facility] [address] [place] [phone] My Phillips 01/04/2025 8:30 AM EDT PACE Home Care / PACE Home Visit Emilee [facility]ONEY [facility] [address] [place] [phone] Anabelle Valdez 01/05/2025 8:30 AM EDT PACE Home Care / PACE Home Visit Emilee [facility] [address] [place] [phone] Anabelle Valdez 01/06/2025 9:30 AM EDT PACE Home Care / PACE Home Visit Emilee [facility]ONE[facility] [address] [place] [address] Merlin Forbes 01/06/2025 6:00 PM EDT PACE Home Care / PACE Home Visit Emilee [facility] [address] [place] [phone] My Phillips 01/07/2025 7:00 AM EDT Clinical Support [facility] [address] [place] [phone] Nkechi Grajeda, EDD 01/07/2025 8:15 AM EDT Clinical Support [facility] [address] [place] [phone] Nkechi Grajeda, EDD 01/07/2025 9:30 AM EDT PACE Home Care / PACE Home Visit Emilee [facility] [address] [place] [phone] Merlin Forbes 01/07/2025 6:00 PM EDT PACE Home Care / PACE Home Visit Emilee [facility]ONEY [facility] [address] [place] [phone] My Phillips 01/08/2025 10:00 AM EDT PACE Home Care / PACE Home Visit Emilee [facility]ONEY [facility] [address] [place] [phone] Merlin Forbes 01/08/2025 6:00 PM EDT PACE Home Care / PACE Home Visit Emilee [facility]ONEY [facility] [address] [place] [phone] My Phillips 01/09/2025 10:30 AM EDT PACE Home Care / PACE Home Visit Emilee [facility]Y [facility] [address] [place] [address] Merlin Forbes 01/09/2025 6:00 PM EDT PACE Home Care / PACE Home Visit Emilee [facility]ONEY [facility] [address] [place] [phone] My Phillips 01/10/2025 9:30 AM EDT PACE Home Care / PACE Home Visit Emilee MAHONEY [facility] [address] [place] [phone] Merlin Forbes 01/10/2025 10:00 AM EDT Clinical Support Emilee MAHONEY MA [address] [place] [phone] 01/10/2025 6:00 PM EDT PACE Home Care / PACE Home Visit Emilee MAHONEY [facility] [address] [place] [phone] My Phillips 01/13/2025 9:30 AM EDT PACE Home Care / PACE Home Visit Emilee MAHONEY [facility] [address] [place] [phone] Merlin Forbes 01/13/2025 6:00 PM EDT PACE Home Care / PACE Home Visit Emilee [facility]HONEY [facility] [address] [place] [phone] My Phillips 01/14/2025 7:00 AM EDT Clinical Support [facility] [address] [place] [phone] Nkechi Grajeda, EDD 01/14/2025 9:30 AM EDT PACE Home Care / PACE Home Visit Emilee [facility] [address] [place] [phone] Merlin Forbes 01/14/2025 6:00 PM EDT PACE Home Care / PACE Home Visit Emilee [facility]ONEY [facility] [address] [place] [phone] My Phillips 01/15/2025 10:00 AM EDT PACE Home Care / PACE Home Visit Emiele MA[facility]ONEY [facility] [address] [place] [phone] Merlin Forbes 01/15/2025 6:00 PM EDT PACE Home Care / PACE Home Visit Emilee MAHONEY [facility] [address] [place] [phone] My Phillips 01/16/2025 10:30 AM EDT PACE Home Care / PACE Home Visit Emilee [facility]ONEY [facility] [address] [place] [phone] Merlin Forbes 01/16/2025 6:00 PM EDT PACE Home Care / PACE Home Visit Emilee MAHONEY [facility] [address] [place] [phone] My Phillips 01/17/2025 9:30 AM EDT PACE Home Care / PACE Home Visit Emilee MAHONEY [facility] [address] [place] [phone] Merlin Forbes 01/17/2025 6:00 PM EDT PACE Home Care / PACE Home Visit Emilee [facility]Y [facility] [address] [place] [phone] My Phillips 01/18/2025 8:30 AM EDT PACE Home Care / PACE Home Visit Emilee [facility] [address] [place] [phone] Anabelle Valdez 01/19/2025 8:30 AM EST PACE Home Care / PACE Home Visit Emilee [facility] [address] [place] [phone] Anabelle Valdez 01/20/2025 9:30 AM EST PACE Home Care / PACE Home Visit Emilee [facility]Y [facility] [address] [place] [address] Merlin Forbes 01/20/2025 6:00 PM EST PACE Home Care / PACE Home Visit Emilee [facility]Y [facility] [address] [place] [address] My Phillips 01/21/2025 7:00 AM EST Clinical Support [facility] [address] [place] [address] Nkechi Grajeda RN 01/21/2025 9:30 AM EST PACE Home Care / PACE Home Visit Emilee [facility]Y [facility] [address] [place] [address] Merlin Forbes 01/21/2025 10:45 AM EST Clinical Support Emilee MAHONEY MA [address] [place] [address] 01/21/2025 6:00 PM EST PACE Home Care / PACE Home Visit Emilee [facility]Y [facility] [address] [place] [address] My Phillips 01/22/2025 10:00 AM EST PACE Home Care / PACE Home Visit Emilee MA[facility]ONEY [facility] [address] [place] [address] Merlin Forbes 01/22/2025 6:00 PM EST PACE Home Care / PACE Home Visit Emilee [facility]HONEY [facility] [address] [place] [phone] My Phillips 01/23/2025 10:30 AM EST PACE Home Care / PACE Home Visit Emilee [facility]Y [facility] [address] [place] [address] Merlin Forbes 01/23/2025 6:00 PM EST PACE Home Care / PACE Home Visit [facility] [place] [facility] [address] [place] [address] My Phillips 01/24/2025 9:30 AM EST PACE Home Care / PACE Home Visit Emilee MAHONEY [facility] [address] [place] [phone] Merlin Forbes 01/24/2025 6:00 PM EST PACE Home Care / PACE Home Visit Emilee MAHONEY [facility] [address] [place] [address] My Phillips 01/27/2025 9:30 AM EST PACE Home Care / PACE Home Visit Emilee [facility]ONEY [facility] [address] [place] [phone] Merlin Forbes 01/27/2025 6:00 PM EST PACE Home Care / PACE Home Visit Emilee [facility]Y [facility] [address] [place] [address] My Phillips 01/28/2025 7:00 AM EST Clinical Support [facility] [address] [place] [phone] Nkechi Grajeda RN 01/28/2025 9:30 AM EST PACE Home Care / PACE Home Visit Emilee [facility] [address] [place] [phone] Merlin Forbes 01/28/2025 6:00 PM EST PACE Home Care / PACE Home Visit Emilee [facility]Y [facility] [address] [place] [phone] My Phillips 01/29/2025 10:00 AM EST PACE Home Care / PACE Home Visit Emilee [facility]Y [facility] [address] [place] [address] Merlin Forbes 01/29/2025 6:00 PM EST PACE Home Care / PACE Home Visit [facility] [place] [facility] [address] [place] [address] My Phillips 01/30/2025 10:30 AM EST PACE Home Care / PACE Home Visit [facility] [place] [facility] [address] [place] [address] Merlin Forbes 01/30/2025 6:00 PM EST PACE Home Care / PACE Home Visit [facility] [place] [facility] [address] [place] [address] My Phillips 01/31/2025 9:30 AM EST PACE Home Care / PACE Home Visit [facility] [place] [facility] [address] [place] [address] Merlin Forbes 01/31/2025 11:00 AM EST PACE External Visit [facility] [place] [address] [place] [address] 01/31/2025 6:00 PM EST PACE Home Care / PACE Home Visit [facility] [place] [facility] [address] [place] [address] My Phillips 02/01/2025 8:30 AM EST PACE Home Care / PACE Home Visit [facility] [place] [facility] [address] [place] [address] Anabelle Valdez 02/02/2025 8:30 AM EST PACE Home Care / PACE Home Visit [facility] [place] [facility] [address] [place] [phone] Anabelle Valdez 02/03/2025 9:30 AM EST PACE Home Care / PACE Home Visit [facility] [place] [facility] [address] [place] [address] Merlin Forbes 02/03/2025 6:00 PM EST PACE Home Care / PACE Home Visit [facility] [place] [facility] [address] [place] [address] My Phillips 02/04/2025 7:00 AM EST Clinical Support [facility] [place] [facility] [address] [place] [address] Nkechi Grajeda, EDD 02/04/2025 8:15 AM EST Clinical Support [facility] [place] [facility] [address] [place] [address] Nkechi Grajeda, EDD 02/04/2025 9:30 AM EST PACE Home Care / PACE Home Visit Emilee [facility] [address] [place] [phone] Merlin Forbes 02/04/2025 6:00 PM EST PACE Home Care / PACE Home Visit Emilee [facility]Y [facility] [address] [place] [phone] My Phillips 02/05/2025 10:00 AM EST PACE Home Care / PACE Home Visit Emilee [facility]Y [facility] [address] [place] [phone] Merlin Forbes 02/05/2025 6:00 PM EST PACE Home Care / PACE Home Visit Emilee [facility]Y [facility] [address] [place] [phone] My Phillips 02/06/2025 10:30 AM EST PACE Home Care / PACE Home Visit Emilee [facility]Y [facility] [address] [place] [phone] Merlin Forbes 02/06/2025 6:00 PM EST PACE Home Care / PACE Home Visit Emilee [facility]Y [facility] [address] [place] [address] My Phillips 02/07/2025 9:30 AM EST PACE Home Care / PACE Home Visit [facility] [place] [facility] [address] [place] [address] Merlin Forbes 02/07/2025 6:00 PM EST PACE Home Care / PACE Home Visit Emilee [facility] [address] [place] [address] My Phillips 02/10/2025 9:30 AM EST PACE Home Care / PACE Home Visit Emilee [facility] [address] [place] [address] Merlin Forbes 02/10/2025 6:00 PM EST PACE Home Care / PACE Home Visit Emilee [facility] [address] [place] [phone] My Phillips 02/11/2025 7:00 AM EST Clinical Support [facility] [place] [facility] [address] [place] [address] Nkechi Grajeda RN 02/11/2025 9:30 AM EST PACE Home Care / PACE Home Visit Emilee [facility] [address] [place] [phone] Merlin Forbes 02/11/2025 6:00 PM EST PACE Home Care / PACE Home Visit Emilee [facility] [address] [place] [phone] My Phillips 02/12/2025 10:00 AM EST PACE Home Care / PACE Home Visit Emilee [facility] [address] [place] [address] Merlin Forbes 02/12/2025 6:00 PM EST PACE Home Care / PACE Home Visit Emilee [facility] [address] [place] [address] My Phillips 02/13/2025 10:30 AM EST PACE Home Care / PACE Home Visit [facility] [place] [facility] [address] [place] [phone] Merlin Forbes 02/13/2025 6:00 PM EST PACE Home Care / PACE Home Visit [facility] [place] [facility] [address] [place] [phone] My Phillips 02/18/2025 7:00 AM EST Clinical Support [facility] [place] [facility] [address] [place] [phone] Nkechi Grajeda, EDD 02/25/2025 7:00 AM EST Clinical Support [facility] [place] [facility] [address] [place] [phone] Nkechi Grajeda, EDD 02/27/2025 10:40 AM EST Clinical Support [facility] [place] [address] [place] [phone] 03/04/2025 7:00 AM EST Clinical Support [facility] [place] [facility] [address] [place] [phone] Nkechi Grajeda, EDD 03/04/2025 8:15 AM EST Clinical Support [facility] [place] [facility] [address] [place] [phone] Nkechi Grajeda, EDD 03/11/2025 7:00 AM EST Clinical Support [facility] [place] [facility] [address] [place] [phone] Nkechi Grajeda, EDD 03/18/2025 7:00 AM EST Clinical Support [facility] [place] [facility] [address] [place] [phone] Nkechi Grajeda, RN 03/25/2025 7:00 AM EST Clinical Support [facility] [place] [facility] [address] [place] [phone] Nkechi Grajeda, RN 04/01/2025 7:00 AM EST Clinical Support [facility] [place] [facility] [address] [place] [address] Nkechi Grajeda, EDD 04/01/2025 8:15 AM EST Clinical Support [facility] [place] [address] [phone] Nkechi Grajeda, EDD 04/08/2025 7:00 AM EST Clinical Support [facility] [address] [address] Nkechi Grajeda, EDD 04/14/2025 9:25 AM EST Office Visit [facility] - [address] [place] [address] Dillon Mendosa MD [address] [place] [address] [place] [address] 04/15/2025 7:00 AM EST Clinical Support [facility] [place] [address] [address] Nkechi Grajeda, EDD 04/22/2025 7:00 AM EST Clinical Support [facility] [place] [address] [address] Nkechi Grajeda, EDD 04/29/2025 7:00 AM EST Clinical Support [facility] [place] [address] [address] Nkechi Grajeda, EDD 04/29/2025 8:15 AM EST Clinical Support [facility] [place] [address] [address] Nkechi Grajeda, EDD 05/06/2025 7:00 AM EST Clinical Support [facility] [place] [address] [address] Nkechi Grajeda, EDD 05/13/2025 7:00 AM EST Clinical Support [facility] [place] [facility] [address] [address] Nkechi Grajeda, EDD 05/20/2025 7:00 AM EST Clinical Support [facility] [place] [facility] [address] [place] [phone] Nkechi Grajeda, EDD 05/27/2025 7:00 AM EDT Clinical Support [facility] [place] [facility] [address] [place] [phone] Nkechi Grajeda, EDD 05/27/2025 8:15 AM EDT Clinical Support [facility] [place] [facility] [address] [place] [phone] Nkechi Grajeda, EDD 06/03/2025 7:00 AM EDT Clinical Support [facility] [place] [facility] [address] [place] [phone] Nkechi Grajeda, EDD 06/10/2025 7:00 AM EDT Clinical Support [facility] [place] [address] [address] Nkechi Grajeda, EDD 06/17/2025 7:00 AM EDT Clinical Support [facility] [place] [facility] [address] [place] [phone] Nkechi Grajeda, EDD 06/24/2025 7:00 AM EDT Clinical Support [facility] [place] [facility] [address] [place] [phone] Nkechi Grajeda, EDD 06/24/2025 8:15 AM EDT Clinical Support [facility] [place] [facility] [address] [place] [phone] Nkechi Grajeda, RN 07/01/2025 7:00 AM EDT Clinical Support [facility] [place] [facility] [address] [place] [phone] Nkechi Grajeda, EDD 07/08/2025 7:00 AM EDT Clinical Support [facility] [place] [facility] [address] [place] [phone] Nkechi Grajeda, EDD 07/15/2025 7:00 AM EDT Clinical Support [facility] [address] [address] Nkechi Grajeda, EDD 07/22/2025 8:15 AM EDT Clinical Support [address] [address] Nkechi Grajeda, EDD 08/19/2025 8:15 AM EDT Clinical Support [address] [address] Nkechi Grajeda, EDD 09/16/2025 8:15 AM EDT Clinical Support [address] [phone] Nkechi Grajeda RN 10/14/2025 8:15 AM EDT Clinical Support [address] [address] Nkechi Grajeda RN 11/11/2025 8:15 AM EDT Clinical Support [address] [address] Nkechi Grajeda, EDD 12/09/2025 8:15 AM EDT Clinical Support [address] [phone] Nkechi Grajeda, EDD documented as of this encounter Visit Diagnoses Diagnosis Wound of left leg, subsequent encounter Encounter for adjustment or management of cardiac device documented in this encounter Orders PACE Service Orderables Count Last Ordered Date First Ordered Date [facility] 12/07/2024 documented in this encounter Care Teams Application Development Specialist Relationship Specialty Start Date End Date Deloris Tobias NP [address] [place] [id number] PCP - General Family Medicine 12/01/24 documented as of this encounter
--- OUTSIDE RECORDS SUMMARY | 2024-12-16 04:27 | XMS_ITS | Encounter Summary ---
Author Organization [facility] Address [address] [place] [address] Care Team Providers Care Pc Technician Name Role Phone Deloris Tobias WATCH GUARD GATE Primary Care Provider Encounter Details Date Type Department Care Team (Late st Contact Info) Description 11/29/2024 Telephone [facility] - [facility] [address] [facility] [address] [place] [address] Dillon Mendosa MD [address] [place] [address] [place] [address] Social History Tobacco Use Types Packs/Day Years [...] Date of Assessment Author No Risk Indicated 12/01/2024 9:11 PM EDT Rashid Reynolds RN * [place] Suicide Severity Rating Scale (Screener/Recent Self-Report) Question Answer Date of Assessment Author 1. Wish to be (Past 1 Month) No 025 9:11 PM EDT Rashid Reynolds, EDD 2. Non-Specific Active Suici pari Thoughts (Past 1 Month) No 12/01/2024 9:11 PM EDT Rashid Reynolds, EDD 6. Suicidal Behavior (Lifetime) No 9:11 PM EDT Rashid Reynolds RN documented as of this encounter Progress Notes * Shahla Harris MA - 12/04/2024 9:08 AM EDT 2nd attempt. * Amy Vasquez RN - 11/29/2024 2:37 PM EDT I called LMOM stating to please c/b. Stated device suggests holding onto some extra fluid and I was calling to assess. * Jyoti Yin MA - 11/29/2024 2:21 PM EDT Images from the original note were not included. Heart failure diagnostics available in this device are suggestive of volume overload. Please phone patient to assess for symptoms of heart failure exacerbation: Weight gain, orthopnea, PND, increasedexertional dyspnea, recent clinical events, dietary indiscretion. Please convey this information to the primary cardiology team or go to as appropriate. Thank you documented in this encounter Plan of Treatment Upcoming Encounters Date Type Department Care Team (Late st Contact Info) Description 12/16/2024 9:30 AM EDT P[facility] Home Care / PACE Home Visit [facility] [address] [place] [phone] Merlin Forbes 12/16/2024 11:00 AM EDT Office Visit [facility] [place] [facility] [address] [place] [address] Deloris Tobias, JOHNATHAN [address] [address] 12/16/2024 6:00 PM EDT PACE Home Care / PACE Home Visit Em[facility] [address] [place] [address] My Phillips 12/17/2024 7:00 AM EDT Clinical Support [facility] [address] [place] [address] Nkechi Grajeda RN 12/17/2024 9:30 AM EDT PACE Home Care / PACE Home Visit [facility] [address] [place] [phone] Merlin Forbes 12/17/2024 11:00 AM EDT Treatment Emilee [facility] [place] Occupational Therapy [address] [place] [address] Tyler Ling OT 12/17/2024 6:00 PM EDT PACE Home Care / PACE Home Visit [facility] [address] [place] [phone] My Phillips 12/18/2024 10:00 AM EDT PACE Home Care / PACE Home Visit Em[facility] [address] [place] [phone] Merlin Forbes 12/18/2024 6:00 PM EDT PACE Home Care / PACE Home Visit [facility] [address] [place] [address] My Phillips 12/19/2024 10:30 AM EDT PACE Home Care / PACE Home Visit [facility] [address] [place] [address] Merlin Forbes 12/19/2024 6:00 PM EDT PACE Home Care / PACE Home Visit [facility] [address] [place] [address] My Phillips 12/20/2024 9:00 AM EDT Appointment [address] [phone] 12/20/2024 9:30 AM EDT PACE Home Care / PACE Home Visit [facility] [address] [place] [phone] Merlin Forbes 12/20/2024 6:00 PM EDT PACE Home Care / PACE Home Visit Emilee [facility] [address] [place] [phone] My Phillips 12/21/2024 8:30 AM EDT PACE Home Care / PACE Home Visit [facility] [address] [place] [phone] Anabelle Valdez 12/22/2024 8:30 AM EDT PACE Home Care / PACE Home Visit Emilee [facility] [address] [place] [phone] Aanbelle Valdez 12/23/2024 9:30 AM EDT PACE Home Care / PACE Home Visit Emilee [facility] [address] [place] [phone] Merlin Forbes 12/23/2024 6:00 PM EDT PACE Home Care / PACE Home Visit Em[facility] [address] [place] [phone] My Phillips 12/24/2024 7:00 AM EDT Clinical Support [facility] [address] [place] [phone] Nkechi Grajeda RN 12/24/2024 9:30 AM EDT PACE Home Care / PACE Home Visit [facility] [address] [place] [address] Merlin Forbes 12/24/2024 6:00 PM EDT PACE Home Care / PACE Home Visit Em[facility] [address] [place] [address] My Phillips 12/25/2024 10:00 AM EDT PACE Home Care / PACE Home Visit Em[facility] [address] [place] [address] Merlin Forbes 12/25/2024 6:00 PM EDT PACE Home Care / PACE Home Visit [facility] [address] [place] [address] My Phillips 12/26/2024 10:40 AM EDT Clinical Support Emilee [facility] [place] [address] [place] [address] 12/26/2024 6:00 PM EDT PACE Home Care / PACE Home Visit Em[facility] [address] [place] [phone] My Phillips 12/27/2024 9:30 AM EDT PACE Home Care / PACE Home Visit Em[facility] [address] [place] [address] Merlin Forbes 12/27/2024 6:00 PM EDT PACE Home Care / PACE Home Visit Emilee [facility] [address] [place] [phone] My Phillips 12/30/2024 9:30 AM EDT PACE Home Care / PACE Home Visit Em[facility] [address] [place] [address] Merlin Forbes 12/30/2024 6:00 PM EDT PACE Home Care / PACE Home Visit Emilee [facility] [address] [place] [address] My Phillips 12/31/2024 7:00 AM EDT Clinical Support [facility] [address] [place] [address] Nkechi Grajeda RN 12/31/2024 9:30 AM EDT PACE Home Care / PACE Home Visit Emilee [facility] [address] [place] [phone] Merlin Forbes 12/31/2024 10:00 AM EDT Ancillary Procedure [facility] - [address] [place] [address] 12/31/2024 6:00 PM EDT PACE Home Care / PACE Home Visit Emilee [facility] [address] [place] [phone] My Phillips 01/01/2025 10:00 AM EDT PACE Home Care / PACE Home Visit Emilee [facility] [address] [place] [phone] Merlin Forbes 01/01/2025 6:00 PM EDT PACE Home Care / PACE Home Visit Emilee [facility] [address] [place] [phone] My Phillips 01/02/2025 10:30 AM EDT PACE Home Care / PACE Home Visit Emilee [facility] [address] [place] [phone] Merlin Forbes 01/02/2025 3:00 PM EDT Clinical Support Emilee [facility]Y [place] [address] [place] [address] 01/02/2025 6:00 PM EDT PACE Home Care / PACE Home Visit Emilee [facility] [address] [place] [phone] My Phillips 01/03/2025 9:30 AM EDT PACE Home Care / PACE Home Visit Emilee [facility] [address] [place] [phone] Merlin Forbes 01/03/2025 6:00 PM EDT PACE Home Care / PACE Home Visit Emilee [facility] [address] [place] [phone] My Phillips 01/04/2025 8:30 AM EDT PACE Home Care / PACE Home Visit Emilee [facility] [address] [place] [phone] Anabelle Valdez 01/05/2025 8:30 AM EDT PACE Home Care / PACE Home Visit Emilee [facility] [address] [place] [phone] Anabelle Valdez 01/06/2025 9:30 AM EDT PACE Home Care / PACE Home Visit Em[facility] [address] [place] [phone] Merlin Forbes 01/06/2025 6:00 PM EDT PACE Home Care / PACE Home Visit Emilee [facility] [address] [place] [phone] My Phillips 01/07/2025 7:00 AM EDT Clinical Support [facility] [address] [place] [phone] Nkechi Grajeda RN 01/07/2025 8:15 AM EDT Clinical Support [facility] [address] [place] [phone] Nkechi Grajeda RN 01/07/2025 9:30 AM EDT PACE Home Care / PACE Home Visit Em[facility] [address] [place] [phone] Merlin Forbes 01/07/2025 6:00 PM EDT PACE Home Care / PACE Home Visit Emilee [facility] [address] [place] [phone] My Phillips 01/08/2025 10:00 AM EDT PACE Home Care / PACE Home Visit Emilee [facility] [address] [place] [phone] Merlin Forbes 01/08/2025 6:00 PM EDT PACE Home Care / PACE Home Visit Em[facility] [address] [place] [phone] My Phillips 01/09/2025 10:30 AM EDT PACE Home Care / PACE Home Visit Emilee [facility] [address] [place] [phone] Merlin Forbes 01/09/2025 6:00 PM EDT PACE Home Care / PACE Home Visit Emilee [facility] [address] [place] [phone] My Phillips 01/10/2025 9:30 AM EDT PACE Home Care / PACE Home Visit Emilee [facility] [address] [place] [phone] Merlin Forbes 01/10/2025 10:00 AM EDT Clinical Support Emilee [facility] [place] [address] [place] [address] 01/10/2025 6:00 PM EDT PACE Home Care / PACE Home Visit Emilee [facility] [address] [place] [address] My Phillips 01/13/2025 9:30 AM EDT PACE Home Care / PACE Home Visit Emilee [facility] [address] [place] [phone] Merlin Forbes 01/13/2025 6:00 PM EDT PACE Home Care / PACE Home Visit Emilee [facility] [address] [place] [address] My Phillips 01/14/2025 7:00 AM EDT Clinical Support [facility] [address] [place] [phone] Nkechi Grajeda RN 01/14/2025 9:30 AM EDT PACE Home Care / PACE Home Visit [facility] [address] [place] [phone] Merlin Forbes 01/14/2025 6:00 PM EDT PACE Home Care / PACE Home Visit Emilee [facility] [address] [place] [phone] My Phillips 01/15/2025 10:00 AM EDT PACE Home Care / PACE Home Visit Emilee [facility] [address] [place] [phone] Merlin Forbes 01/15/2025 6:00 PM EDT PACE Home Care / PACE Home Visit Emilee [facility] [address] [place] [phone] My Phillips 01/16/2025 10:30 AM EDT PACE Home Care / PACE Home Visit Emilee [facility] [address] [place] [phone] Merlin Forbes 01/16/2025 6:00 PM EDT PACE Home Care / PACE Home Visit Emilee [facility] [address] [place] [address] My Phillips 01/17/2025 9:30 AM EDT PACE Home Care / PACE Home Visit Emilee [facility] [address] [place] [address] Merlin Forbes 01/17/2025 6:00 PM EDT PACE Home Care / PACE Home Visit Emilee [facility] [address] [place] [address] My Phillips 01/18/2025 8:30 AM EDT PACE Home Care / PACE Home Visit Em[facility] [address] [place] [phone] Anabelle Valdez 01/19/2025 8:30 AM EST PACE Home Care / PACE Home Visit Em[facility] [address] [place] [phone] Anabelle Vadlez 01/20/2025 9:30 AM EST PACE Home Care / PACE Home Visit [facility] [address] [place] [phone] Merlin Forbes 01/20/2025 6:00 PM EST PACE Home Care / PACE Home Visit [facility] [address] [place] [phone] My Phillips 01/21/2025 7:00 AM EST Clinical Support [facility] [address] [place] [address] Nkechi Grajeda RN 01/21/2025 9:30 AM EST PACE Home Care / PACE Home Visit [facility] [address] [place] [phone] Merlin Forbes 01/21/2025 10:45 AM EST Clinical Support Emilee [facility] [place] [address] [place] [address] 01/21/2025 6:00 PM EST [facility]ACE Home [facility] / PACE Home Visit [facility] [address] [place] [address] My Phillips 01/22/2025 10:00 AM EST PACE Home Care / PACE Home Visit mEilee [facility] [address] [place] [address] Merlin Forbes 01/22/2025 6:00 PM EST PACE Home Care / PACE Home Visit Em[facility] [address] [place] [address] My Phillips 01/23/2025 10:30 AM EST PACE Home Care / PACE Home Visit Em[facility] [address] [place] [phone] Merlin Forbes 01/23/2025 6:00 PM EST PACE Home Care / PACE Home Visit Em[facility] [address] [place] [phone] My Phillips 01/24/2025 9:30 AM EST PACE Home Care / PACE Home Visit Em[facility] [address] [place] [phone] Merlin Forbes 01/24/2025 6:00 PM EST PACE Home Care / PACE Home Visit Em[facility] [address] [place] [phone] My Phillips 01/27/2025 9:30 AM EST PACE Home Care / PACE Home Visit Em[facility] [address] [place] [phone] Merlin Forbes 01/27/2025 6:00 PM EST PACE Home [facility] / PACE Home Visit Em[facility] [address] [place] [address] My Phillips 01/28/2025 7:00 AM EST Clinical Support [facility] [address] [place] [address] Nkechi Grajeda RN 01/28/2025 9:30 AM EST PACE Home [facility] / PACE Home Visit [facility] [address] [place] [address] Merlni Forbes 01/28/2025 6:00 PM EST PACE Home [facility] / PACE Home Visit Em[facility] [address] [place] [phone] My Phillips 01/29/2025 10:00 AM EST PACE Home Care / PACE Home Visit Em[facility] [address] [place] [phone] Merlin Forbes 01/29/2025 6:00 PM EST PACE Home [facility] / PACE Home Visit Em[facility] [address] [place] [phone] My Phillips 01/30/2025 10:30 AM EST PACE Home [facility] / PACE Home Visit Em[facility] [address] [place] [phone] Merlin Forbes 01/30/2025 6:00 PM EST PACE Home Care / PACE Home Visit Emilee [facility] [address] [place] [phone] My Phillips 01/31/2025 9:30 AM EST PACE Home Care / PACE Home Visit Em[facility] [address] [place] [phone] Merlin Forbes 01/31/2025 11:00 AM EST [facility] [place] [address] [place] [address] 01/31/2025 6:00 PM EST PACE Home Care / PACE Home Visit [facility] [address] [place] [address] My Phillips 02/01/2025 8:30 AM EST PACE Home Care / PACE Home Visit Em[facility] [address] [place] [phone] Anabelle Valdez 02/02/2025 8:30 AM EST PACE Home Care / PACE Home Visit [facility] [address] [place] [phone] Anabelle Valdez 02/03/2025 9:30 AM EST PACE Home Care / PACE Home Visit Em[facility] [address] [place] [phone] Merlin Forbes 02/03/2025 6:00 PM EST PACE Home Care / PACE Home Visit Em[facility] [address] [place] [phone] My Phillips 02/04/2025 7:00 AM EST [facility] Support [facility] [address] [place] [phone] Nkechi Grajeda, EDD 02/04/2025 8:15 AM EST Clinical Support [facility] [place] [facility] [address] [place] [phone] Nkechi Grajeda, RN 02/04/2025 9:30 AM EST [facility]ACE Home [facility] / [facility] [address] [place] [phone] Merlin Forbes 02/04/2025 6:00 PM EST PACE Home Care / PACE Home Visit [facility] [address] [place] [address] My Phillips 02/05/2025 10:00 AM EST PACE Home Care / PACE Home Visit [facility] [address] [place] [phone] Merlin Forbes 02/05/2025 6:00 PM EST PACE Home Care / PACE Home Visit [facility] [address] [place] [phone] My Phillips 02/06/2025 10:30 AM EST PACE Home Care / PACE Home Visit [facility] [address] [place] [phone] Merlin Forbes 02/06/2025 6:00 PM EST PACE Home Care / PACE Home Visit [facility] [address] [place] [phone] My Phillips 02/07/2025 9:30 AM EST PACE Home Care / PACE Home Visit [facility] [address] [place] [phone] Merlin Forbes 02/07/2025 6:00 PM EST PACE Home Care / PACE Home Visit [facility] [address] [place] [phone] My Phillips 02/10/2025 9:30 AM EST PACE Home Care / PACE Home Visit [facility] [address] [place] [phone] Merlin Forbes 02/10/2025 6:00 PM EST PACE Home Care / PACE Home Visit [facility] [address] [place] [phone] My Phillips 02/11/2025 7:00 AM EST Clinical Support [facility] [place] [facility] [address] [place] [address] Nkechi Grajeda RN 02/11/2025 9:30 AM EST PACE Home Care / PACE Home Visit [facility] [address] [place] [phone] Merlin Forbes 02/11/2025 6:00 PM EST PACE Home Care / PACE Home Visit [facility] [address] [place] [phone] My Phillips 02/12/2025 10:00 AM EST PACE Home Care / PACE Home Visit [facility] [address] [place] [phone] Merlin Forbes 02/12/2025 6:00 PM EST PACE Home Care / PACE Home Visit [facility] [address] [place] [phone] My Phillips 02/13/2025 10:30 AM EST PACE Home Care / PACE Home Visit [facility] [address] [place] [phone] Merlin Forbes 02/13/2025 6:00 PM EST PACE Home Care / PACE Home Visit [facility] [address] [place] [phone] My Phillips 02/18/2025 7:00 AM EST Clinical Support [facility] [place] [facility] [address] [place] [phone] Nkechi Grajeda, EDD 02/25/2025 7:00 AM EST Clinical Support [facility] [place] [facility] [address] [place] [phone] Nkechi Grajeda RN 02/27/2025 10:40 AM EST Clinical Support [facility] [place] [address] [place] [phone] 03/04/2025 7:00 AM EST Clinical Support [facility] [place] [facility] [address] [phone] Nkechi Grajeda, EDD 03/04/2025 8:15 AM EST Clinical Support [facility] [place] [facility] [address] [phone] Nkechi Grajeda, EDD 03/11/2025 7:00 AM EST Clinical Support [facility] [place] [facility] [address] [phone] Nkechi Grajeda, EDD 03/18/2025 7:00 AM EST Clinical Support [facility] [place] [address] [phone] Nkechi Grajeda, EDD 03/25/2025 7:00 AM EST Clinical Support [facility] [place] [address] [phone] Nkechi Grajeda, EDD 04/01/2025 7:00 AM EST Clinical Support [facility] [place] [address] [phone] Nkechi Grajeda, EDD 04/01/2025 8:15 AM EST Clinical Support [facility] [place] [address] [phone] Nkechi Grajeda, EDD 04/08/2025 7:00 AM EST Clinical Support [facility] [place] [facility] [address] [phone] Nkechi Grajeda, EDD 04/14/2025 9:25 AM EST Office Visit [facility] [address] [facility] [address] [place] [phone] Dillon Mendosa MD [address] [place] [address] [place] [address] 04/15/2025 7:00 AM EST Clinical Support [facility] [place] [facility] [address] [place] [phone] Nkechi Grajeda, EDD 04/22/2025 7:00 AM EST Clinical Support [facility] [address] [place] [phone] Nkechi Grajeda, EDD 04/29/2025 7:00 AM EST Clinical Support [facility] [address] [place] [phone] Nkechi Grajeda, EDD 04/29/2025 8:15 AM EST Clinical Support [facility] [address] [place] [phone] Nkechi Grajeda, EDD 05/06/2025 7:00 AM EST Clinical Support [facility] [place] [facility] [address] [place] [phone] Nkechi Grajeda, EDD 05/13/2025 7:00 AM EST Clinical Support [facility] [address] [place] [phone] Nkechi Grajeda, EDD 05/20/2025 7:00 AM EST Clinical Support [facility] [address] [place] [phone] Nkechi Grajeda, EDD 05/27/2025 7:00 AM EDT Clinical Support [facility] [address] [place] [phone] Nkechi Grajeda, EDD 05/27/2025 8:15 AM EDT Clinical Support [facility] [address] [place] [phone] Nkechi Grajeda, EDD 06/03/2025 7:00 AM EDT Clinical Support [facility] [address] [place] [phone] Nkechi GrajedaEDD 06/10/2025 7:00 AM EDT Clinical Support [facility] [address] [place] [phone] Nkechi Grajeda, EDD 06/17/2025 7:00 AM EDT Clinical Support [facility] [address] [place] [phone] Nkechi Grajeda, EDD 06/24/2025 7:00 AM EDT Clinical Support [facility] [address] [place] [phone] Nkechi Grajeda, EDD 06/24/2025 8:15 AM EDT Clinical Support [facility] [address] [place] [phone] Nkechi Grajeda, EDD 07/01/2025 7:00 AM EDT Clinical Support [facility] [place] [facility] [address] [phone] Nkechi Grajeda, EDD 07/08/2025 7:00 AM EDT Clinical Support [facility] [place] [facility] [address] [place] [phone] Nkechi Grajeda, EDD 07/15/2025 7:00 AM EDT Clinical Support [facility] [address] [place] [phone] Nkechi Grajeda, EDD 07/22/2025 8:15 AM EDT Clinical Support [facility] [address] [place] [phone] Nkechi Grajeda, EDD 08/19/2025 8:15 AM EDT Clinical Support [facility] [address] [place] [phone] Nkechi Grajeda, RN 09/16/2025 8:15 AM EDT Clinical Support [facility] [address] [place] [phone] Nekchi GrajedaEDD 10/14/2025 8:15 AM EDT Clinical Support [address] [phone] Nkechi Grajeda RN 11/11/2025 8:15 AM EDT Clinical Support [address] [phone] Nkechi Grajeda RN 12/09/2025 8:15 AM EDT Clinical Support [address] [phone] Nkechi Grajeda, EDD documented as of this encounter Visit Diagnoses Not on filedocumented in this encounter Care Teams Pc Technician Relationship Specialty Start Date End Date Deloris Tobias NP [address] [place] [id number] PCP - General Family Medicine 12/01/24 documented as of this encounter
--- OUTSIDE RECORDS SUMMARY | 2024-12-16 04:27 | XMS_ITS | Encounter Summary ---
Author Organization [facility] Address [address] [place] [address] Care Team Providers Care Embossing Machine Operator Name Role Phone Deloris Tobias NP Primary Care Provider [phone] Reason for Referral * Consultation (Routine) - Closed Specialty Diagnoses / Procedures Referred By Contact Referred To Contact Acute Care Hospital / Intermediate Care Facility Diagnoses Anxiety Encephalopathy acute Chronic systolic CHF (congestive heart failure) ([facility]/HCC V24, [facility] V28) Hypokalemia Hyponatremia Deloris Tobias NP [address] [facility] [address] [place] [address] Phone: tel: fax: [facility] Unit [address] [place] [address] Phone: tel: Referral ID Status Reason Start Date Expiration Date V isits Requested Visits Authorized [id number] Closed Consult and Treat 12/12/2024 12/12/2024 1 1 Encounter Details Date Type Department Care Team (Late st Contact Info) Description 12/12/2024 PACE Admissions [facility] [address] [place] [address] Eileen Suarez RN Hypokalemia (Primary Dx); Anxiety; Encephalopathy acute; Chronic systolic CHF (congestive heart failure) ([facility] V24, [facility] V28); Hyponatremia Social History Tobacco Use Types Packs/Day Years [...] as of this encounter Progress Notes * Eileen Suarez RN - 12/12/2024 8:05 AM EDT 12/13/24 Par discharged to home this afternoon via [facility] van. His electrolytes have normalized. Renal function needs to be monitored. Par had a positive response to IV diuresis and will resume Bumex upon discharge. Has new order for Nicoderm CQ patch for smoking cessation. Cocaine cessation also strongly recommended. Nurse visit planned for Monday. DC summary sent to clinic team. RTC planned. 12/12/24 Par admitted observation status at [facility]. Primary reason for hospitalization is hypokalemia. Potassium 2.8 last night. Now 3.2. Par also hyponatremic, is being monitored. Par is being treated with IV furosemide. Tox screen positive for cannabis and cocaine. Par also smokes. Cessation is recommended. Par is anxious and irritable. Anxiety to be followed up outpatient. SW reaches out to this junior technical writer re: wound care. No referrals needed, as par is seen regularly by [facility] nursing. Will continue to follow. Discharge plan is home as soon as labs normalize. documented in this encounter Plan of Treatment Upcoming Encounters Date Type Department Care Team (Late st Contact Info) Description 12/16/2024 9:30 AM EDT PACE Home Care / PACE Home Visit [facility] [address] [place] [phone] Merlin Forbes 12/16/2024 11:00 AM EDT Office Visit [facility] [place] [facility] [address] [place] [phone] Deloris Tobias, JOHNATHAN [address] [address] 12/16/2024 6:00 PM EDT PACE Home Care / PACE Home Visit Em[facility] [address] [place] [phone] My Phillips 12/17/2024 7:00 AM EDT Clinical Support [facility] [place] [facility] [address] [place] [phone] Nkechi Grajeda RN 12/17/2024 9:30 AM EDT PACE Home Care / PACE Home Visit Em[facility] [address] [place] [phone] Merlin Forbes 12/17/2024 11:00 AM EDT Treatment Emilee MAHONEY MA Occupational Therapy [address] [place] [phone] Tyler Ling OT 12/17/2024 6:00 PM EDT PACE Home Care / PACE Home Visit Em[facility] [address] [place] [phone] My Phillips 12/18/2024 10:00 AM EDT PACE Home Care / PACE Home Visit Emilee [facility] [address] [place] [phone] Merlin Forbes 12/18/2024 6:00 PM EDT PACE Home Care / PACE Home Visit Emilee [facility] [address] [place] [phone] My Phillips 12/19/2024 10:30 AM EDT PACE Home Care / PACE Home Visit Emilee [facility] [address] [place] [phone] Merlin Forbes 12/19/2024 6:00 PM EDT PACE Home Care / PACE Home Visit Emilee [facility] [address] [place] [phone] My Phillips 12/20/2024 9:00 AM EDT Appointment [address] [phone] 12/20/2024 9:30 AM EDT PACE Home Care / PACE Home Visit Emilee [facility] [address] [place] [phone] Merlin Forbes 12/20/2024 6:00 PM EDT PACE Home Care / PACE Home Visit Emilee [facility] [address] [place] [phone] My Phillips 12/21/2024 8:30 AM EDT PACE Home Care / PACE Home Visit Emilee [facility] [address] [place] [phone] Anabelle Valdez 12/22/2024 8:30 AM EDT PACE Home Care / PACE Home Visit Emilee [facility] [address] [place] [phone] Anabelle Valdez 12/23/2024 9:30 AM EDT PACE Home Care / PACE Home Visit Emilee [facility] [address] [place] [phone] Merlin Forbes 12/23/2024 6:00 PM EDT PACE Home Care / PACE Home Visit Emilee [facility] [address] [place] [phone] My Phillips 12/24/2024 7:00 AM EDT Clinical Support [facility] [place] [facility] [address] [place] [address] Nkechi Grajeda RN 12/24/2024 9:30 AM EDT PACE Home Care / PACE Home Visit Emilee [facility] [address] [place] [phone] Merlin Forbes 12/24/2024 6:00 PM EDT PACE Home Care / PACE Home Visit Emilee [facility] [address] [place] [phone] My Phillips 12/25/2024 10:00 AM EDT PACE Home Care / PACE Home Visit Emilee [facility] [address] [place] [phone] Merlin Forbes 12/25/2024 6:00 PM EDT PACE Home Care / PACE Home Visit Emilee [facility] [address] [place] [phone] My Phillips 12/26/2024 10:40 AM EDT Clinical Support Emilee MAHONEY [place] [address] [place] [address] 12/26/2024 6:00 PM EDT PACE Home Care / PACE Home Visit Em[facility] [address] [place] [phone] My Phillips 12/27/2024 9:30 AM EDT PACE Home Care / PACE Home Visit Emilee [facility] [address] [place] [phone] Merlin Forbes 12/27/2024 6:00 PM EDT PACE Home Care / PACE Home Visit Emilee [facility] [address] [place] [phone] My Phillips 12/30/2024 9:30 AM EDT PACE Home Care / PACE Home Visit Emilee [facility] [address] [place] [phone] Merlin Forbes 12/30/2024 6:00 PM EDT PACE Home Care / PACE Home Visit Emilee [facility] [address] [place] [phone] My Phillips 12/31/2024 7:00 AM EDT Clinical Support [facility] [place] [facility] [address] [place] [phone] Nkechi Grajeda RN 12/31/2024 9:30 AM EDT PACE Home Care / PACE Home Visit Em[facility] [address] [place] [phone] Merlin Forbes 12/31/2024 10:00 AM EDT Ancillary Procedure [facility] - [address] [place] [address] 12/31/2024 6:00 PM EDT PACE Home Care / PACE Home Visit Emilee [facility] [address] [place] [phone] My Phillips 01/01/2025 10:00 AM EDT PACE Home Care / PACE Home Visit Emilee [facility] [address] [place] [phone] Merlin Forbes 01/01/2025 6:00 PM EDT PACE Home Care / PACE Home Visit Emilee [facility] [address] [place] [phone] My Phillips 01/02/2025 10:30 AM EDT PACE Home Care / PACE Home Visit Emilee [facility] [address] [place] [phone] Merlin Forbes 01/02/2025 3:00 PM EDT Clinical Support Emilee MAHONEY [place] [address] [place] [address] 01/02/2025 6:00 PM EDT PACE Home Care / PACE Home Visit Emilee [facility] [address] [place] [phone] My Phillips 01/03/2025 9:30 AM EDT PACE Home Care / PACE Home Visit Emilee [facility] [address] [place] [phone] Merlin Forbes 01/03/2025 6:00 PM EDT PACE Home Care / PACE Home Visit Emilee [facility] [address] [place] [phone] My Phillips 01/04/2025 8:30 AM EDT PACE Home Care / PACE Home Visit Emilee [facility] [address] [place] [phone] Anabelle Valdez 01/05/2025 8:30 AM EDT PACE Home Care / PACE Home Visit Emilee [facility] [address] [place] [phone] Anabelle Valdez 01/06/2025 9:30 AM EDT PACE Home Care / PACE Home Visit Emilee [facility] [address] [place] [phone] Merlin Forbes 01/06/2025 6:00 PM EDT PACE Home Care / PACE Home Visit Emilee [facility] [address] [place] [phone] My Phillips 01/07/2025 7:00 AM EDT Clinical Support [facility] [place] [facility] [address] [place] [phone] Nkechi Grajeda RN 01/07/2025 8:15 AM EDT Clinical Support [facility] [place] [facility] [address] [place] [phone] Nkechi Grajeda RN 01/07/2025 9:30 AM EDT PACE Home Care / PACE Home Visit Em[facility] [address] [place] [phone] Merlin Forbes 01/07/2025 6:00 PM EDT PACE Home Care / PACE Home Visit Emilee [facility] [address] [place] [phone] My Phillips 01/08/2025 10:00 AM EDT PACE Home Care / PACE Home Visit Em[facility] [address] [place] [phone] Merlin Forbes 01/08/2025 6:00 PM EDT PACE Home Care / PACE Home Visit Emilee [facility] [address] [place] [phone] My Phillips 01/09/2025 10:30 AM EDT PACE Home Care / PACE Home Visit Emilee [facility] [address] [place] [phone] Merlin Forbes 01/09/2025 6:00 PM EDT PACE Home Care / PACE Home Visit Emilee [facility] [address] [place] [phone] My Phillips 01/10/2025 9:30 AM EDT PACE Home Care / PACE Home Visit Emilee [facility] [address] [place] [phone] Merlin Forbes 01/10/2025 10:00 AM EDT Clinical Support Emilee MAHONEY [place] [address] [place] [address] 01/10/2025 6:00 PM EDT PACE Home Care / PACE Home Visit Emilee [facility] [address] [place] [phone] yM Phillips 01/13/2025 9:30 AM EDT PACE Home Care / PACE Home Visit Emilee [facility] [address] [place] [phone] Merlin Forbes 01/13/2025 6:00 PM EDT PACE Home Care / PACE Home Visit Emilee [facility] [address] [place] [phone] My Phillips 01/14/2025 7:00 AM EDT Clinical Support [facility] [place] [facility] [address] [place] [phone] Nkechi Grajeda, EDD 01/14/2025 9:30 AM EDT PACE Home Care / PACE Home Visit Emilee [facility] [address] [place] [phone] Merlin Forbes 01/14/2025 6:00 PM EDT PACE Home Care / PACE Home Visit Emilee [facility]ONEY [facility] [address] [place] [phone] My Phillips 01/15/2025 10:00 AM EDT PACE Home Care / PACE Home Visit Emilee [facility] [address] [place] [phone] Merlin Forbes 01/15/2025 6:00 PM EDT PACE Home Care / PACE Home Visit Emilee [facility]Y [facility] [address] [place] [phone] My Phillips 01/16/2025 10:30 AM EDT PACE Home Care / PACE Home Visit Emilee [facility] [address] [place] [phone] Merlin Forbes 01/16/2025 6:00 PM EDT PACE Home Care / PACE Home Visit Emilee [facility]ONEY [facility] [address] [place] [phone] My Phillips 01/17/2025 9:30 AM EDT PACE Home Care / PACE Home Visit Emilee [facility]ONE[facility] [address] [place] [phone] Merlin Forbes 01/17/2025 6:00 PM EDT PACE Home Care / PACE Home Visit Emilee [facility] [address] [place] [phone] My Phillips 01/18/2025 8:30 AM EDT PACE Home Care / PACE Home Visit Emilee [facility] [address] [place] [phone] Anabelle Valdez 01/19/2025 8:30 AM EST PACE Home Care / PACE Home Visit Em[facility] [address] [place] [phone] Anabelle Valdez 01/20/2025 9:30 AM EST PACE Home Care / PACE Home Visit Emilee [facility]HONEY [facility] [address] [place] [phone] Merlin Forbes 01/20/2025 6:00 PM EST PACE Home Care / PACE Home Visit Emilee [facility] [address] [place] [phone] My Phillips 01/21/2025 7:00 AM EST Clinical Support [facility] [place] [facility] [address] [place] [phone] Nkechi Grajeda RN 01/21/2025 9:30 AM EST PACE Home Care / PACE Home Visit Emilee [facility] [address] [place] [phone] Merlin Forbes 01/21/2025 10:45 AM EST Clinical Support Emilee MAHONEY [place] [address] [place] [address] 01/21/2025 6:00 PM EST PACE Home Care / PACE Home Visit Emilee [facility] [address] [place] [address] My Phillips 01/22/2025 10:00 AM EST PACE Home Care / PACE Home Visit Emilee [facility] [address] [place] [phone] Merlin Forbes 01/22/2025 6:00 PM EST PACE Home Care / PACE Home Visit Emilee [facility]Y [facility] [address] [place] [phone] My Phillips 01/23/2025 10:30 AM EST PACE Home Care / PACE Home Visit Emilee [facility]Y [facility] [address] [place] [phone] Merlin Forbes 01/23/2025 6:00 PM EST PACE Home Care / PACE Home Visit Emilee [facility] [address] [place] [address] My Phillips 01/24/2025 9:30 AM EST PACE Home Care / PACE Home Visit Emilee [facility] [address] [place] [address] Merlin Forbes 01/24/2025 6:00 PM EST PACE Home Care / PACE Home Visit Emilee [facility]Y [facility] [address] [place] [phone] My Phillips 01/27/2025 9:30 AM EST PACE Home Care / PACE Home Visit [facility] [place] [facility] [address] [place] [phone] Merlin Forbes 01/27/2025 6:00 PM EST PACE Home Care / PACE Home Visit Emilee [facility]Y [facility] [address] [place] [address] My Phillips 01/28/2025 7:00 AM EST Clinical Support [facility] [place] [facility] [address] [place] [phone] Nkechi Grajeda RN 01/28/2025 9:30 AM EST PACE Home Care / PACE Home Visit Emilee [facility] [address] [place] [phone] Merlin Forbes 01/28/2025 6:00 PM EST PACE Home Care / PACE Home Visit Emilee [facility] [address] [place] [phone] My Phillips 01/29/2025 10:00 AM EST PACE Home Care / PACE Home Visit Emilee [facility]ONEY [place] [facility] [address] [place] [phone] Merlin Forbes 01/29/2025 6:00 PM EST PACE Home Care / PACE Home Visit Emilee [facility] [place] [facility] [address] [place] [phone] yM Phillips 01/30/2025 10:30 AM EST PACE Home Care / PACE Home Visit Emilee [facility]Y [facility] [address] [place] [phone] Merlin Forbes 01/30/2025 6:00 PM EST PACE Home Care / PACE Home Visit Emilee MA[facility]Y [facility] [address] [place] [phone] My Phillips 01/31/2025 9:30 AM EST PACE Home Care / PACE Home Visit Emilee [facility] [address] [place] [address] Merlin Forbes 01/31/2025 11:00 AM EST PACE External Visit Emilee MAHONEY [place] [address] [place] [phone] 01/31/2025 6:00 PM EST PACE Home Care / PACE Home Visit Emilee [facility] [address] [place] [address] My Phillips 02/01/2025 8:30 AM EST PACE Home Care / PACE Home Visit Emilee [facility] [place] [facility] [address] [place] [phone] Anabelle Valdez 02/02/2025 8:30 AM EST PACE Home Care / PACE Home Visit Emilee [facility] [address] [place] [phone] Anabelle Valdez 02/03/2025 9:30 AM EST PACE Home Care / PACE Home Visit Emilee [facility] [place] [facility] [address] [place] [phone] Merlin Forbes 02/03/2025 6:00 PM EST PACE Home Care / PACE Home Visit Emilee [facility] [address] [place] [phone] My Phillips 02/04/2025 7:00 AM EST Clinical Support [facility] [place] [facility] [address] [place] [phone] Nkechi Grajeda, EDD 02/04/2025 8:15 AM EST Clinical Support [facility] [place] [facility] [address] [place] [phone] Nkechi Grajeda, RN 02/04/2025 9:30 AM EST PACE Home Care / PACE Home Visit Em[facility] [address] [place] [phone] Merlin Forbes 02/04/2025 6:00 PM EST PACE Home Care / PACE Home Visit [facility] [place] [facility] [address] [place] [address] My Phillips 02/05/2025 10:00 AM EST PACE Home Care / PACE Home Visit [facility] [place] [facility] [address] [place] [address] Merlin Forbes 02/05/2025 6:00 PM EST PACE Home Care / PACE Home Visit [facility] [place] [facility] [address] [place] [phone] My Phillips 02/06/2025 10:30 AM EST PACE Home Care / PACE Home Visit [facility] [place] [facility] [address] [place] [phone] Merlin Forbes 02/06/2025 6:00 PM EST PACE Home Care / PACE Home Visit [facility] [place] [facility] [address] [place] [phone] My Phillips 02/07/2025 9:30 AM EST PACE Home Care / PACE Home Visit [facility] [place] [facility] [address] [place] [phone] Merlin Forbes 02/07/2025 6:00 PM EST PACE Home Care / PACE Home Visit [facility] [place] [facility] [address] [place] [phone] My Phillips 02/10/2025 9:30 AM EST PACE Home Care / PACE Home Visit [facility] [place] [facility] [address] [place] [phone] Merlin Forbes 02/10/2025 6:00 PM EST PACE Home Care / PACE Home Visit [facility] [place] [facility] [address] [place] [phone] My Phillips 02/11/2025 7:00 AM EST Clinical Support [facility] [place] [facility] [address] [place] [address] Nkechi Grajeda, EDD 02/11/2025 9:30 AM EST PACE Home Care / PACE Home Visit [facility] [place] [facility] [address] [place] [address] Merlin Forbes 02/11/2025 6:00 PM EST PACE Home Care / PACE Home Visit Em[facility] [place] [facility] [address] [place] [phone] My Phillips 02/12/2025 10:00 AM EST PACE Home Care / PACE Home Visit Em[facility] [address] [place] [phone] Merlin Forbes 02/12/2025 6:00 PM EST PACE Home Care / PACE Home Visit Em[facility] [address] [place] [phone] My Phillips 02/13/2025 10:30 AM EST PACE Home Care / PACE Home Visit [facility] [address] [place] [phone] Merlin Forbes 02/13/2025 6:00 PM EST PACE Home Care / PACE Home Visit Em[facility] [address] [place] [phone] My Phillips 02/18/2025 7:00 AM EST Clinical Support [facility] [place] [facility] [address] [place] [address] Nkechi Grajeda, DED 02/25/2025 7:00 AM EST Clinical Support [facility] [place] [place] [address] [phone] Nkechi Grajeda, EDD 02/27/2025 10:40 AM EST Clinical Support [facility] [place] [address] [place] [phone] 03/04/2025 7:00 AM EST Clinical Support [facility] [place] [address] [phone] Nkechi Grajeda, EDD 03/04/2025 8:15 AM EST Clinical Support [facility] [place] [address] [phone] Nkechi Grajeda, EDD 03/11/2025 7:00 AM EST Clinical Support [facility] [place] [address] [phone] Nkechi Grajeda, EDD 03/18/2025 7:00 AM EST Clinical Support [facility] [place] [address] [phone] Nkechi Grajeda, EDD 03/25/2025 7:00 AM EST Clinical Support [facility] [place] [facility] [address] [phone] Nkechi Grajeda, EDD 04/01/2025 7:00 AM EST Clinical Support [facility] [place] [address] [phone] Nkechi Grajeda, EDD 04/01/2025 8:15 AM EST Clinical Support [facility] [place] [address] [phone] Nkechi Grajeda, EDD 04/08/2025 7:00 AM EST Clinical Support [facility] [place] [address] [phone] Nkechi Grajeda, EDD 04/14/2025 9:25 AM EST Office Visit [facility] [address] [facility] [address] [place] [address] Dillon Mendosa MD [address] [place] [address] [place] [address] 04/15/2025 7:00 AM EST Clinical Support [facility] [place] [address] [phone] Nkechi Grajeda, EDD 04/22/2025 7:00 AM EST Clinical Support [facility] [place] [address] [phone] Nkechi Grajeda, EDD 04/29/2025 7:00 AM EST Clinical Support [facility] [place] [address] [phone] Nkechi Grajeda, EDD 04/29/2025 8:15 AM EST Clinical Support [facility] [place] [address] [phone] Nkechi Grajeda, EDD 05/06/2025 7:00 AM EST Clinical Support [facility] [place] [address] [phone] Nkechi Grajeda, EDD 05/13/2025 7:00 AM EST Clinical Support [facility] [place] [address] [address] Nkechi Grajeda, EDD 05/20/2025 7:00 AM EST Clinical Support [facility] [place] [address] [phone] Nkechi Grajeda, EDD 05/27/2025 7:00 AM EDT Clinical Support [facility] [place] [address] [phone] Nkechi Grajeda, EDD 05/27/2025 8:15 AM EDT Clinical Support [facility] [place] [facility] [address] [place] [phone] Nkechi Grajeda, EDD 06/03/2025 7:00 AM EDT Clinical Support [facility] [place] [facility] [address] [place] [phone] Nkechi Grajeda, EDD 06/10/2025 7:00 AM EDT Clinical Support [facility] [place] [facility] [address] [place] [phone] Nkechi Grajeda, EDD 06/17/2025 7:00 AM EDT Clinical Support [facility] [place] [facility] [address] [place] [phone] Nkechi Grajeda, EDD 06/24/2025 7:00 AM EDT Clinical Support [facility] [place] [facility] [address] [place] [phone] Nkechi Grajeda, EDD 06/24/2025 8:15 AM EDT Clinical Support [facility] [place] [facility] [address] [phone] Nkechi Grajeda, EDD 07/01/2025 7:00 AM EDT Clinical Support [facility] [place] [facility] [facility] [address] [place] [phone] Nkechi Grajeda, EDD 07/08/2025 7:00 AM EDT Clinical Support [facility] [address] [place] [phone] Nkechi Grajeda, EDD 07/15/2025 7:00 AM EDT Clinical Support [facility] [address] [place] [phone] Nkechi Grajeda, EDD 07/22/2025 8:15 AM EDT Clinical Support [facility] [address] [place] [phone] Nkechi Grajeda, RN 08/19/2025 8:15 AM EDT Clinical Support [facility] [address] [place] [phone] Nkechi Grajeda, EDD 09/16/2025 8:15 AM EDT [facility] [address] [phone] Nkechi Grajeda RN 10/14/2025 8:15 AM EDT Clinical Support [address] [phone] Nkechi Grajeda RN 11/11/2025 8:15 AM EDT Clinical Support [address] [phone] Nkechi Grajeda RN 12/09/2025 8:15 AM EDT Clinical Support [address] [phone] Nkechi Grajeda, EDD Scheduled Referrals Name Type Priority Associated Diagnoses Orde r Schedule PACE Admisssion Outpatient Referral Routine Anxiety Encephalopathy acute Chronic systolic CHF (congestive heart failure) ([facility] V24, [facility] [place] V28) Hypokalemia Hyponatremia Ordered: 12/13/2024 documented as of this encounter Visit Diagnoses Diagnosis Hypokalemia- Primary Hypopotassemia Anxiety Anxiety state, unspecified Encephalopathy acute Unspecified encephalopathy Chronic systolic CHF (congestive heart failure) ([facility] [place] V24, [facility] [place] V28) Hyponatremia Hyposmolality and/or hyponatremia Encounter for adjustment or management of cardiac device documented in this encounter Additional Health Concerns Assessment Noted Time PHQ-9 Depression Total Score: 20 025 12:16 PM EDT documented as of this encounter Care Teams Embossing Machine Operator Relationship Specialty Start Date End Date Deloris Tobias NP [address] [place] [phone] PCP - General Family Medicine 12/01/24 documented as of this encounter
--- OUTSIDE RECORDS SUMMARY | 2024-12-16 04:27 | XMS_ITS | Encounter Summary ---
Author Organization [facility] Address [address] [place] [address] Care Team Providers Care [employer] Name Role Phone Deloris Tobias NP Primary Care Provider [phone] Reason for Visit * Reason Onset Date Comments Other 07/28/2024 Participant call ed to report he was out at a friend's and got a little tipsy forgetting his keys. Participant could not gain access to his apt. Maintenance of his residence able to unlock door to residence. Encounter Details Date Type Department Care Team (Late st Contact Info) Description 07/28/2024 PACE On-Call [facility] [address] [place] [address] Rich Mehta NP 2112 [facility] 1 [place], [place] [id number] Social History Tobacco Use Types Packs/Day Years [...] In Home Nursing and Aide Services [address] [place] [address] Merlin Forbes 12/16/2024 11:00 AM EDT Office Visit [facility] [place] [facility] [address] [place] [address] Deloris Tobias NP [address] [address] 12/16/2024 6:00 PM EDT PACE Home Care / PACE Home Visit [facility] [place] [facility] [address] [place] [phone] My Phillips 12/17/2024 7:00 AM EDT Clinical Support [facility] [place] [facility] [address] [place] [phone] Nkechi Grajeda RN 12/17/2024 9:30 AM EDT PACE Home Care / PACE Home Visit [facility] [address] [place] [phone] Merlin Forbes 12/17/2024 11:00 AM EDT Treatment Em[facility] MA Occupational Therapy [address] [place] [phone] Tyler Ling OT 12/17/2024 6:00 PM EDT PACE Home Care / PACE Home Visit Em[facility] [address] [place] [phone] My Phillips 12/18/2024 10:00 AM EDT PACE Home Care / PACE Home Visit Em[facility] [address] [place] [phone] Merlin Forbes 12/18/2024 6:00 PM EDT PACE Home Care / PACE Home Visit [facility] [address] [place] [phone] My Phillips 12/19/2024 10:30 AM EDT PACE Home Care / PACE Home Visit Em[facility] [place] [facility] [address] [place] [phone] Merlin Forbes 12/19/2024 6:00 PM EDT PACE Home Care / PACE Home Visit Em[facility] [place] [facility] [address] [place] [phone] My Phillips 12/20/2024 9:00 AM EDT Appointment [address] [phone] 12/20/2024 9:30 AM EDT PACE Home Care / PACE Home Visit [facility] [address] [place] [phone] Merlin Fobres 12/20/2024 6:00 PM EDT PACE Home Care / PACE Home Visit Em[facility] [place] [facility] [address] [place] [phone] My Phillips 12/21/2024 8:30 AM EDT PACE Home Care / PACE Home Visit Em[facility] [place] [facility] [address] [place] [phone] Anabelle Valdez 12/22/2024 8:30 AM EDT PACE Home Care / PACE Home Visit [facility] [place] [facility] [address] [place] [phone] Anabelle Valdez 12/23/2024 9:30 AM EDT PACE Home Care / PACE Home Visit Em[facility] [place] [facility] [address] [place] [phone] Merlin Forbes 12/23/2024 6:00 PM EDT PACE Home Care / PACE Home Visit Em[facility] [place] [facility] [address] [place] [phone] My Phillips 12/24/2024 7:00 AM EDT Clinical Support [facility] [place] [facility] [address] [place] [phone] Nkechi Grajeda RN 12/24/2024 9:30 AM EDT PACE Home Care / PACE Home Visit [facility] [place] [facility] [address] [place] [phone] Melrin Forbes 12/24/2024 6:00 PM EDT PACE Home Care / PACE Home Visit Emilee [facility] [place] [facility] [address] [place] [phone] My Phillips 12/25/2024 10:00 AM EDT PACE Home Care / PACE Home Visit Emilee [facility] [place] [facility] [address] [place] [phone] Merlin Forbes 12/25/2024 6:00 PM EDT PACE Home Care / PACE Home Visit Em[facility] [address] [place] [phone] My Phillips 12/26/2024 10:40 AM EDT Clinical Support Emilee MAHONEY MA [address] [place] [phone] 12/26/2024 6:00 PM EDT PACE Home Care / PACE Home Visit Emilee [facility] [place] [facility] [address] [place] [phone] My Phillips 12/27/2024 9:30 AM EDT PACE Home Care / PACE Home Visit Emilee [facility] [place] [facility] [address] [place] [phone] Merlin Forbes 12/27/2024 6:00 PM EDT PACE Home Care / PACE Home Visit Emilee [facility] [place] [facility] [address] [place] [address] My Phillips 12/30/2024 9:30 AM EDT PACE Home Care / PACE Home Visit Emilee [facility] [place] [facility] [address] [place] [address] Merlin Forbes 12/30/2024 6:00 PM EDT PACE Home Care / PACE Home Visit Emilee [facility] [place] [facility] [address] [place] [phone] My Phillips 12/31/2024 7:00 AM EDT Clinical Support [facility] [place] [facility] [address] [place] [phone] Nkechi Grajeda RN 12/31/2024 9:30 AM EDT PACE Home Care / PACE Home Visit Emilee [facility] [place] [facility] [address] [place] [phone] Merlin Forbes 12/31/2024 10:00 AM EDT Ancillary Procedure [facility] [address] [facility] [address] [place] [address] 12/31/2024 6:00 PM EDT PACE Home Care / PACE Home Visit Emilee MA[facility]ONEY [place] In [facility] Services [address] [place] [address] My Phillips 01/01/2025 10:00 AM EDT PACE Home Care / PACE Home Visit Emilee [facility] [place] [facility] [address] [place] [address] Merlin Forbes 01/01/2025 6:00 PM EDT PACE Home Care / PACE Home Visit Emilee [facility] [place] [facility] [address] [place] [address] My Phillips 01/02/2025 10:30 AM EDT PACE Home Care / PACE Home Visit Emilee [facility] [place] [facility] [address] [place] [phone] Merlin Forbes 01/02/2025 3:00 PM EDT Clinical Support Emilee MAHONEY [place] [address] [place] [address] 01/02/2025 6:00 PM EDT PACE Home Care / PACE Home Visit Emilee [facility]ONE[facility] [place] [facility] [address] [place] [phone] My Phillips 01/03/2025 9:30 AM EDT PACE Home Care / PACE Home Visit Emilee [facility]ONE[facility] [place] In [facility] [address] [place] [phone] Merlin Forbes 01/03/2025 6:00 PM EDT PACE Home Care / PACE Home Visit Emilee MA[facility]ONEY [place] In [facility] [address] [place] [phone] My Phillips 01/04/2025 8:30 AM EDT PACE Home Care / PACE Home Visit Emilee [facility] [address] [place] [phone] Anabelle Valdez 01/05/2025 8:30 AM EDT PACE Home Care / PACE Home Visit Emilee [facility] [place] In [facility] [address] [place] [phone] Anabelle Valdez 01/06/2025 9:30 AM EDT PACE Home Care / PACE Home Visit [facility] [place] [facility] [address] [place] [phone] Merlin Forbes 01/06/2025 6:00 PM EDT PACE Home Care / PACE Home Visit Emilee [facility]ONE[facility] [place] In [facility] [address] [place] [phone] My Phillips 01/07/2025 7:00 AM EDT Clinical Support [facility] [place] [facility] [address] [place] [address] Nkechi Grajeda, EDD 01/07/2025 8:15 AM EDT Clinical Support [facility] [place] [facility] [address] [place] [phone] Nkechi Grajeda, EDD 01/07/2025 9:30 AM EDT PACE Home Care / PACE Home Visit Emilee [facility] [place] [facility] [address] [place] [phone] Merlin Forbes 01/07/2025 6:00 PM EDT PACE Home Care / PACE Home Visit Emilee [facility] [place] [facility] [address] [place] [phone] My Phillips 01/08/2025 10:00 AM EDT PACE Home Care / PACE Home Visit Emilee [facility] [place] [facility] [address] [place] [phone] Merlin Forbes 01/08/2025 6:00 PM EDT PACE Home Care / PACE Home Visit Emilee [facility] [place] In [facility] [address] [place] [phone] My Phillips 01/09/2025 10:30 AM EDT PACE Home Care / PACE Home Visit Emilee [facility] [place] [facility] [address] [place] [phone] Merlin Forbes 01/09/2025 6:00 PM EDT PACE Home Care / PACE Home Visit Emilee [facility] [place] [facility] [address] [place] [phone] My Phillips 01/10/2025 9:30 AM EDT PACE Home Care / PACE Home Visit Emilee [facility] [place] [facility] [address] [place] [address] Merlin Forbes 01/10/2025 10:00 AM EDT Clinical Support Emilee MAHONEY [place] [address] [place] [address] 01/10/2025 6:00 PM EDT PACE Home Care / PACE Home Visit Emilee [facility] [place] In [facility] [address] [place] [address] My Phillips 01/13/2025 9:30 AM EDT PACE Home Care / PACE Home Visit Emilee [facility] [place] [facility] [address] [place] [phone] Merlin Forbes 01/13/2025 6:00 PM EDT PACE Home Care / PACE Home Visit Emilee [facility] [place] In [facility] [address] [place] [phone] My Phillips 01/14/2025 7:00 AM EDT Clinical Support [facility] [place] [facility] [address] [place] [address] Nkechi Grajeda RN 01/14/2025 9:30 AM EDT PACE Home Care / PACE Home Visit Em[facility] [place] [facility] [address] [place] [phone] Merlin Forbes 01/14/2025 6:00 PM EDT PACE Home Care / PACE Home Visit Em[facility] [address] [place] [phone] My Phillips 01/15/2025 10:00 AM EDT PACE Home Care / PACE Home Visit Em[facility] [place] [facility] [address] [place] [address] Merlin Forbes 01/15/2025 6:00 PM EDT PACE Home Care / PACE Home Visit Em[facility] In [facility] [address] [place] [address] My Phillips 01/16/2025 10:30 AM EDT PACE Home Care / PACE Home Visit Em[facility] [address] [place] [phone] Merlin Forbes 01/16/2025 6:00 PM EDT PACE Home Care / PACE Home Visit Emilee [facility] [place] In [facility] [address] [place] [phone] My Phillips 01/17/2025 9:30 AM EDT PACE Home Care / PACE Home Visit Em[facility] [place] [facility] [address] [place] [phone] Merlin Forbes 01/17/2025 6:00 PM EDT PACE Home Care / PACE Home Visit Em[facility] [place] [facility] [address] [place] [phone] My Phillips 01/18/2025 8:30 AM EDT PACE Home Care / PACE Home Visit Em[facility] [place] [facility] [address] [place] [phone] Anabelle Valdez 01/19/2025 8:30 AM EST PACE Home Care / PACE Home Visit [facility] [place] [facility] [address] [place] [phone] Anabelle Valdez 01/20/2025 9:30 AM EST PACE Home Care / PACE Home Visit Em[facility] [place] [facility] [address] [place] [phone] Merlin Forbes 01/20/2025 6:00 PM EST PACE Home Care / PACE Home Visit Em[facility] [address] [place] [phone] My Phillips 01/21/2025 7:00 AM EST Clinical Support [facility] [place] [facility] [address] [place] [address] Nkechi Grajeda RN 01/21/2025 9:30 AM EST PACE Home Care / PACE Home Visit [facility] [place] [facility] [address] [place] [address] Merlin Forbes 01/21/2025 10:45 AM EST Clinical Support Emilee [facility] [place] [address] [place] [address] 01/21/2025 6:00 PM EST PACE Home Care / PACE Home Visit [facility] [place] [facility] [address] [place] [phone] My Phillips 01/22/2025 10:00 AM EST PACE Home Care / PACE Home Visit Em[facility] [place] [facility] [address] [place] [phone] Merlin Forbes 01/22/2025 6:00 PM EST PACE Home Care / PACE Home Visit [facility] [address] [place] [phone] My Phillips 01/23/2025 10:30 AM EST PACE Home Care / PACE Home Visit [facility] [address] [place] [phone] Merlin Forbes 01/23/2025 6:00 PM EST PACE Home Care / PACE Home Visit Em[facility] [address] [place] [phone] My Phillips 01/24/2025 9:30 AM EST PACE Home Care / PACE Home Visit Em[facility] [place] [facility] [address] [place] [phone] Merlin Forbes 01/24/2025 6:00 PM EST PACE Home Care / PACE Home Visit [facility] [place] [facility] [address] [place] [address] My Phillips 01/27/2025 9:30 AM EST PACE Home Care / PACE Home Visit [facility] [address] [place] [address] Merlin Forbes 01/27/2025 6:00 PM EST PACE Home Care / PACE Home Visit [facility] [place] [facility] [address] [place] [address] My Phillips 01/28/2025 7:00 AM EST Clinical Support [facility] [place] [facility] [address] [place] [address] Nkechi Grajeda RN 01/28/2025 9:30 AM EST PACE Home Care / PACE Home Visit [facility] [place] [facility] [address] [place] [address] Merlin Forbes 01/28/2025 6:00 PM EST PACE Home Care / PACE Home Visit Em[facility] [place] [facility] [address] [place] [phone] My Phillips 01/29/2025 10:00 AM EST PACE Home Care / PACE Home Visit [facility] [address] [place] [address] Merlin Forbes 01/29/2025 6:00 PM EST PACE Home Care / PACE Home Visit Em[facility] [address] [place] [phone] My Phillips 01/30/2025 10:30 AM EST PACE Home Care / PACE Home Visit [facility] [address] [place] [address] Merlin Forbes 01/30/2025 6:00 PM EST PACE Home Care / PACE Home Visit [facility] [place] [facility] [address] [place] [address] My Phillips 01/31/2025 9:30 AM EST PACE Home Care / PACE Home Visit [facility] [place] [facility] [address] [place] [address] Merlin Forbes 01/31/2025 11:00 AM EST PACE External Visit [facility] [place] [address] [place] [address] 01/31/2025 6:00 PM EST PACE Home Care / PACE Home Visit [facility] [address] [place] [phone] My Phillips 02/01/2025 8:30 AM EST PACE Home Care / PACE Home Visit [facility] [address] [place] [phone] Anabelle Valdez 02/02/2025 8:30 AM EST PACE Home Care / PACE Home Visit [facility] [address] [place] [phone] Anabelle Valdez 02/03/2025 9:30 AM EST PACE Home Care / PACE Home Visit Em[facility] [address] [place] [phone] Merlin Forbes 02/03/2025 6:00 PM EST PACE Home Care / PACE Home Visit [facility] [place] [facility] [address] [place] [phone] My Phillips 02/04/2025 7:00 AM EST Clinical Support [facility] [place] [facility] [address] [place] [phone] Nkechi Grajeda RN 02/04/2025 8:15 AM EST Clinical Support [facility] [place] [facility] [address] [place] [phone] Nkechi Grajeda RN 02/04/2025 9:30 AM EST PACE Home Care / PACE Home Visit [facility] [place] [facility] [address] [place] [phone] Merlin Forbes 02/04/2025 6:00 PM EST PACE Home Care / PACE Home Visit [facility] [place] [facility] [address] [place] [phone] My Phillips 02/05/2025 10:00 AM EST PACE Home Care / PACE Home Visit Em[facility] [place] [facility] [address] [place] [phone] Merlin Forbes 02/05/2025 6:00 PM EST PACE Home Care / PACE Home Visit Em[facility] [place] [facility] [address] [place] [phone] My Phillips 02/06/2025 10:30 AM EST PACE Home Care / PACE Home Visit [facility] [address] [place] [phone] Merlin Forbes 02/06/2025 6:00 PM EST PACE Home Care / PACE Home Visit [facility] [address] [place] [phone] My Phillips 02/07/2025 9:30 AM EST PACE Home Care / PACE Home Visit [facility] [place] [facility] [address] [place] [phone] Merlin Forbes 02/07/2025 6:00 PM EST PACE Home Care / PACE Home Visit [facility] [place] [facility] [address] [place] [phone] My Phillips 02/10/2025 9:30 AM EST PACE Home Care / PACE Home Visit [facility] [place] [facility] [address] [place] [address] Merlin Forbes 02/10/2025 6:00 PM EST PACE Home Care / PACE Home Visit [facility] [address] [place] [address] My Phillips 02/11/2025 7:00 AM EST Clinical Support [facility] [place] [facility] [address] [place] [address] Nkechi Grajeda RN 02/11/2025 9:30 AM EST PACE Home Care / PACE Home Visit [facility] [address] [place] [phone] Merlin Forbes 02/11/2025 6:00 PM EST PACE Home Care / PACE Home Visit [facility] [address] [place] [phone] My Phillips 02/12/2025 10:00 AM EST PACE Home Care / PACE Home Visit [facility] [address] [place] [phone] Merlin Forbes 02/12/2025 6:00 PM EST PACE Home Care / PACE Home Visit [facility] [address] [place] [phone] My Phillips 02/13/2025 10:30 AM EST PACE Home Care / PACE Home Visit [facility] [address] [place] [phone] Merlin Forbes 02/13/2025 6:00 PM EST PACE Home Care / PACE Home Visit [facility] [address] [place] [phone] My Phillips 02/18/2025 7:00 AM EST Clinical Support [facility] [place] [facility] [address] [place] [phone] Nkechi Grajeda, EDD 02/25/2025 7:00 AM EST Clinical Support [facility] [place] [facility] [address] [place] [phone] Nkechi Grajeda, EDD 02/27/2025 10:40 AM EST Clinical Support [facility] [place] [address] [place] [phone] 03/04/2025 7:00 AM EST Clinical Support [facility] [place] [facility] [address] [place] [phone] Nkechi Grajeda, EDD 03/04/2025 8:15 AM EST Clinical Support [facility] [place] [facility] [address] [place] [phone] Nkechi Grajeda, EDD 03/11/2025 7:00 AM EST Clinical Support [facility] [place] [facility] [address] [place] [phone] Nkechi Grajeda, EDD 03/18/2025 7:00 AM EST Clinical Support [facility] [place] [facility] [address] [place] [phone] Nkechi Grajeda, EDD 03/25/2025 7:00 AM EST Clinical Support [facility] [place] [facility] [address] [place] [phone] Nkechi Grajeda, EDD 04/01/2025 7:00 AM EST Clinical Support [facility] [place] [facility] [address] [place] [phone] Nkechi Grajeda, EDD 04/01/2025 8:15 AM EST Clinical Support [facility] [place] [facility] [address] [place] [phone] Nkechi Grajeda, EDD 04/08/2025 7:00 AM EST Clinical Support [facility] [place] [facility] [address] [place] [phone] Nkechi Grajeda, EDD 04/14/2025 9:25 AM EST Office Visit [facility] [address] [place] [address] Dillon Mendosa MD [address] [place] [address] [place] [phone] 04/15/2025 7:00 AM EST Clinical Support [facility] [place] [facility] [address] [phone] Nkechi Grajeda, EDD 04/22/2025 7:00 AM EST Clinical Support [facility] [place] [facility] [address] [address] Nkechi Grajeda, EDD 04/29/2025 7:00 AM EST Clinical Support [facility] [place] [facility] [address] [phone] Nkechi Grajeda, EDD 04/29/2025 8:15 AM EST Clinical Support [facility] [place] [facility] [address] [phone] Nkechi Grajeda, EDD 05/06/2025 7:00 AM EST Clinical Support [facility] [place] [address] [phone] Nkechi Grajeda, EDD 05/13/2025 7:00 AM EST Clinical Support [facility] [place] [facility] [address] [address] Nkechi Grajeda, EDD 05/20/2025 7:00 AM EST Clinical Support [facility] [place] [facility] [address] [phone] Nkechi Grajeda, EDD 05/27/2025 7:00 AM EDT Clinical Support [facility] [place] [facility] [address] [address] Nkechi Grajeda EDD 05/27/2025 8:15 AM EDT Clinical Support [facility] [place] [facility] [address] [place] [phone] Nkechi Grajeda, EDD 06/03/2025 7:00 AM EDT Clinical Support [facility] [place] [facility] [address] [place] [phone] Nkechi Grajeda, EDD 06/10/2025 7:00 AM EDT Clinical Support [facility] [place] [facility] [address] [place] [phone] Nkechi Grajeda, EDD 06/17/2025 7:00 AM EDT Clinical Support [facility] [place] [facility] [address] [place] [phone] Nkechi Grajeda, EDD 06/24/2025 7:00 AM EDT Clinical Support [facility] [place] [facility] [address] [phone] Nkechi Grajeda, EDD 06/24/2025 8:15 AM EDT Clinical Support [facility] [place] [facility] [address] [phone] Nkechi Grajeda, EDD 07/01/2025 7:00 AM EDT Clinical Support [facility] [place] [facility] [address] [place] [phone] Nkechi Grajeda, EDD 07/08/2025 7:00 AM EDT Clinical Support [facility] [place] [facility] [address] [place] [phone] Nkechi Grajeda, EDD 07/15/2025 7:00 AM EDT Clinical Support [facility] [place] [facility] [address] [place] [phone] Nkechi Grajeda, EDD 07/22/2025 8:15 AM EDT Clinical Support [facility] [place] [facility] [address] [place] [phone] Nkechi Grajeda RN 08/19/2025 8:15 AM EDT Clinical Support [address] [phone] Nkechi Grajeda RN 09/16/2025 8:15 AM EDT Clinical Support [address] [phone] Nkechi Grajeda RN 10/14/2025 8:15 AM EDT Clinical Support [address] [phone] Nkechi Grajeda RN 11/11/2025 8:15 AM EDT Clinical Support [address] [phone] Nkechi Grajeda RN 12/09/2025 8:15 AM EDT Clinical Support [address] [address] [id number] Nkechi Grajeda, EDD documented as of this encounter Visit Diagnoses Not on filedocumented in this encounter Care Teams [employer] Relationship Specialty Start Date End Date Deloris Tobias NP [address] [place] [id number] PCP - General Family Medicine 12/01/24 documented as of this encounter
--- OUTSIDE RECORDS SUMMARY | 2024-12-16 04:27 | XMS_ITS | Encounter Summary ---
Author Organization [facility] Address [address] [place] [address] Care Team Providers Care Web Merchant Name Role Phone Deloris Tobias MERCHANDISE APPRAISER Primary Care Provider [phone] Encounter Details Date Type Department Care Team (Late st Contact Info) Description 12/12/2024 [facility] [address] [place] [phone] Nora Mauricio RN Wound of left leg, [...] [facility] [address] [place] [phone] Merlin Forbes 12/16/2024 11:00 AM EDT Office Visit [facility] [address] [place] [address] Deloris Tobias, JOHNATHAN [address] [address] 12/16/2024 6:00 PM EDT PACE Home Care / PACE Home Visit Emilee MAHONEY [facility] [address] [place] [phone] My Phillips 12/17/2024 7:00 AM EDT Clinical Support [facility] [address] [place] [phone] Nkechi Grajeda RN 12/17/2024 9:30 AM EDT PACE Home Care / PACE Home Visit Emilee [facility]ONEY [facility] [address] [place] [phone] Merlin Forbes 12/17/2024 11:00 AM EDT Treatment Emilee MAHONEY MA Occupational Therapy [address] [place] [phone] Tyler Ling OT 12/17/2024 6:00 PM EDT PACE Home Care / PACE Home Visit Emilee MAHONEY [facility] [address] [place] [phone] My Phillips 12/18/2024 10:00 AM EDT PACE Home Care / PACE Home Visit Emilee MAHONEY [facility] [address] [place] [phone] Merlin Forbes 12/18/2024 6:00 PM EDT PACE Home Care / PACE Home Visit Emilee MAHONEY [facility] [address] [place] [phone] My Phillips 12/19/2024 10:30 AM EDT PACE Home Care / PACE Home Visit Emilee MAHONEY [facility] [address] [place] [phone] Merlin Forbes 12/19/2024 6:00 PM EDT PACE Home Care / PACE Home Visit Emilee MAHONEY [facility] [address] [place] [phone] My Phillips 12/20/2024 9:00 AM EDT Appointment [address] [address] 12/20/2024 9:30 AM EDT PACE Home Care / PACE Home Visit Emilee MAHONEY [facility] [address] [place] [phone] Merlin Forbes 12/20/2024 6:00 PM EDT PACE Home Care / PACE Home Visit Emilee MAHONEY [facility] [address] [place] [phone] My Phillips 12/21/2024 8:30 AM EDT PACE Home Care / PACE Home Visit Emilee MAHONEY [facility] [address] [place] [phone] Anabelle Valdez 12/22/2024 8:30 AM EDT PACE Home Care / PACE Home Visit Emilee [facility]ONEY [facility] [address] [place] [phone] Anabelle Valdez 12/23/2024 9:30 AM EDT PACE Home Care / PACE Home Visit Emilee MAHONE[facility] [address] [place] [phone] Merlin Forbes 12/23/2024 6:00 PM EDT PACE Home Care / PACE Home Visit Emilee MAHONEY [facility] [address] [place] [phone] My Phillips 12/24/2024 7:00 AM EDT Clinical Support [facility] [address] [place] [phone] Nkechi Grajeda RN 12/24/2024 9:30 AM EDT PACE Home Care / PACE Home Visit Emilee [facility]ONE[facility] [address] [place] [phone] Merlin Forbes 12/24/2024 6:00 PM EDT PACE Home Care / PACE Home Visit Emilee MAHONEY [facility] [address] [place] [phone] My Phillips 12/25/2024 10:00 AM EDT PACE Home Care / PACE Home Visit Emilee MA[facility]ONE[facility] [address] [place] [phone] Merlin Forbes 12/25/2024 6:00 PM EDT PACE Home Care / PACE Home Visit Emilee MAHONE[facility] [address] [place] [phone] My Phillips 12/26/2024 10:40 AM EDT Clinical Support Emilee MAHONEY MA [address] [place] [phone] 12/26/2024 6:00 PM EDT PACE Home Care / PACE Home Visit Emilee MAHONEY [facility] [address] [place] [phone] My Phillips 12/27/2024 9:30 AM EDT PACE Home Care / PACE Home Visit Emilee MAHONEY [facility] [address] [place] [phone] Merlin Forbes 12/27/2024 6:00 PM EDT PACE Home Care / PACE Home Visit Emilee MAHONEY [facility] [address] [place] [phone] My Phillips 12/30/2024 9:30 AM EDT PACE Home Care / PACE Home Visit Emilee MA[facility]ONEY [facility] [address] [place] [address] Merlin Forbes 12/30/2024 6:00 PM EDT PACE Home Care / PACE Home Visit Emilee [facility]ONEY [facility] [address] [place] [address] My Phillips 12/31/2024 7:00 AM EDT Clinical Support [facility] [address] [place] [phone] Nkechi Grajeda RN 12/31/2024 9:30 AM EDT PACE Home Care / PACE Home Visit Emilee MA[facility]ONEY [facility] [address] [place] [phone] Merlin Forbes 12/31/2024 10:00 AM EDT Ancillary Procedure [facility] - [address] [place] [address] 12/31/2024 6:00 PM EDT PACE Home Care / PACE Home Visit Emilee MAHONEY [facility] [address] [place] [phone] My Phillips 01/01/2025 10:00 AM EDT PACE Home Care / PACE Home Visit Emilee MAHONEY [facility] [address] [place] [phone] Merlin Forbes 01/01/2025 6:00 PM EDT PACE Home Care / PACE Home Visit Emilee MAHONEY [facility] [address] [place] [phone] My Phillips 01/02/2025 10:30 AM EDT PACE Home Care / PACE Home Visit Emilee MAHONEY [facility] [address] [place] [address] [place] [address] Merlin Forbes 01/02/2025 3:00 PM EDT Clinical Support Emilee MAHONEY MA [address] [place] [address] 01/02/2025 6:00 PM EDT PACE Home Care / PACE Home Visit Emilee MA[facility]ONEY [facility] [address] [place] [phone] My Phillips 01/03/2025 9:30 AM EDT PACE Home Care / PACE Home Visit Emilee MAHONEY [facility] [address] [place] [phone] Merlin Forbes 01/03/2025 6:00 PM EDT PACE Home Care / PACE Home Visit Emilee MAHONEY [facility] [address] [place] [phone] My Phillips 01/04/2025 8:30 AM EDT PACE Home Care / PACE Home Visit Emilee MA[facility]ONEY [facility] [address] [place] [phone] Anabelle Valdez 01/05/2025 8:30 AM EDT PACE Home Care / PACE Home Visit Emilee [facility] [address] [place] [phone] Anabelle Valdez 01/06/2025 9:30 AM EDT PACE Home Care / PACE Home Visit Emilee MAHONE[facility] [address] [place] [phone] Merlin Forbes 01/06/2025 6:00 PM EDT PACE Home Care / PACE Home Visit Emilee [facility] [address] [place] [phone] My Phillips 01/07/2025 7:00 AM EDT Clinical Support [facility] [address] [place] [phone] Nkechi Grajeda, EDD 01/07/2025 8:15 AM EDT Clinical Support [facility] [address] [place] [phone] Nkechi Grajeda, EDD 01/07/2025 9:30 AM EDT PACE Home Care / PACE Home Visit Emilee [facility] [address] [place] [phone] Merlin Forbes 01/07/2025 6:00 PM EDT PACE Home Care / PACE Home Visit Emilee MAHONEY [facility] [address] [place] [phone] My Phillips 01/08/2025 10:00 AM EDT PACE Home Care / PACE Home Visit Emilee MAHONEY [facility] [address] [place] [phone] Merlin Forbes 01/08/2025 6:00 PM EDT PACE Home Care / PACE Home Visit Emilee MAHONEY [facility] [address] [place] [phone] My Phillips 01/09/2025 10:30 AM EDT PACE Home Care / PACE Home Visit Emilee MAHONEY [facility] [address] [place] [phone] Merlin Forbes 01/09/2025 6:00 PM EDT PACE Home Care / PACE Home Visit Emilee MAHONEY [facility] [address] [place] [phone] My Phillips 01/10/2025 9:30 AM EDT PACE Home Care / PACE Home Visit Emilee MAHONEY [facility] [address] [place] [phone] Merlin Forbes 01/10/2025 10:00 AM EDT Clinical Support Emilee MAHONEY MA [address] [place] [address] 01/10/2025 6:00 PM EDT PACE Home Care / PACE Home Visit Emilee MAHONEY [facility] [address] [place] [address] My Phillips 01/13/2025 9:30 AM EDT PACE Home Care / PACE Home Visit Emilee MA[facility]ONEY [facility] [address] [place] [address] Merlin Forbes 01/13/2025 6:00 PM EDT PACE Home Care / PACE Home Visit Emilee [facility] [address] [place] [address] My Phillips 01/14/2025 7:00 AM EDT Clinical Support [facility] [address] [place] [address] Nkechi Grajeda, EDD 01/14/2025 9:30 AM EDT PACE Home Care / PACE Home Visit Emilee [facility] [address] [place] [address] Merlin Forbes 01/14/2025 6:00 PM EDT PACE Home Care / PACE Home Visit Emilee MAHONEY [facility] [address] [place] [address] My Phillips 01/15/2025 10:00 AM EDT PACE Home Care / PACE Home Visit Emilee MA[facility]ONE[facility] [address] [place] [address] Merlin Forbes 01/15/2025 6:00 PM EDT PACE Home Care / PACE Home Visit Emilee MA[facility]ONEY [facility] [address] [place] [address] My Phillips 01/16/2025 10:30 AM EDT PACE Home Care / PACE Home Visit Emilee MAHONE[facility] [address] [place] [address] Merlin Forbes 01/16/2025 6:00 PM EDT PACE Home Care / PACE Home Visit Emilee MAHONEY [facility] [address] [place] [phone] My Phillips 01/17/2025 9:30 AM EDT PACE Home Care / PACE Home Visit Emilee MAHONEY [facility] [address] [place] [phone] Merlin Forbes 01/17/2025 6:00 PM EDT PACE Home Care / PACE Home Visit Emilee MAHONEY [facility] [address] [place] [phone] My Phillips 01/18/2025 8:30 AM EDT PACE Home Care / PACE Home Visit Emilee MAHONEY [facility] [address] [place] [phone] Anabelle Valdez 01/19/2025 8:30 AM EST PACE Home Care / PACE Home Visit Emilee MAHONEY [facility] [address] [place] [phone] Anabelle Valdez 01/20/2025 9:30 AM EST PACE Home Care / PACE Home Visit Emilee MAHONEY [facility] [address] [place] [phone] Merlin Forbes 01/20/2025 6:00 PM EST PACE Home Care / PACE Home Visit Emilee MA[facility]ONEY [facility] [address] [place] [phone] My Phillips 01/21/2025 7:00 AM EST Clinical Support [facility] [address] [place] [phone] Nkechi Grajeda RN 01/21/2025 9:30 AM EST PACE Home Care / PACE Home Visit [facility] [address] [place] [address] Merlin Forbes 01/21/2025 10:45 AM EST Clinical Support Emilee MAHONEY MA [address] [place] [address] 01/21/2025 6:00 PM EST PACE Home Care / PACE Home Visit Emilee MA[facility]ONEY [facility] [address] [place] [address] My Phillips 01/22/2025 10:00 AM EST PACE Home Care / PACE Home Visit Emilee MA[facility]ONE[facility] [address] [place] [phone] Merlin Forbes 01/22/2025 6:00 PM EST PACE Home Care / PACE Home Visit Emilee MAHONEY [facility] [address] [place] [phone] My Phillips 01/23/2025 10:30 AM EST PACE Home Care / PACE Home Visit Emilee MA[facility] [address] [place] [phone] Merlin Forbes 01/23/2025 6:00 PM EST PACE Home Care / PACE Home Visit Emilee MAHONEY [facility] [address] [place] [phone] My Phillips 01/24/2025 9:30 AM EST PACE Home Care / PACE Home Visit Emilee MA[facility]Y [facility] [address] [place] [phone] Merlin Forbes 01/24/2025 6:00 PM EST PACE Home Care / PACE Home Visit Emilee MA[facility]Y [facility] [address] [place] [address] My Phillips 01/27/2025 9:30 AM EST PACE Home Care / PACE Home Visit [facility] [place] [facility] [address] [place] [address] Merlin Forbes 01/27/2025 6:00 PM EST PACE Home Care / PACE Home Visit Emilee MA[facility]ONEY [facility] [address] [place] [address] My Phillips 01/28/2025 7:00 AM EST Clinical Support [facility] [address] [place] [address] Nkechi Grajeda RN 01/28/2025 9:30 AM EST PACE Home Care / PACE Home Visit Em[facility] [address] [place] [address] Merlin Forbes 01/28/2025 6:00 PM EST PACE Home Care / PACE Home Visit Emilee MA[facility] [address] [place] [address] My Phillips 01/29/2025 10:00 AM EST PACE Home Care / PACE Home Visit Emilee [facility] [address] [place] [phone] Merlin Forbes 01/29/2025 6:00 PM EST PACE Home Care / PACE Home Visit Emilee [facility] [address] [place] [address] My Phillips 01/30/2025 10:30 AM EST PACE Home Care / PACE Home Visit Emilee [facility] [address] [place] [address] Merlin Forbes 01/30/2025 6:00 PM EST PACE Home Care / PACE Home Visit Emilee [facility] [address] [place] [address] My Phillips 01/31/2025 9:30 AM EST PACE Home Care / PACE Home Visit Em[facility] [address] [place] [address] Merlin Forbes 01/31/2025 11:00 AM EST PACE External Visit Emilee MAHONEY [place] [address] [place] [address] 01/31/2025 6:00 PM EST PACE Home Care / PACE Home Visit Em[facility] [address] [place] [address] My Phillips 02/01/2025 8:30 AM EST PACE Home Care / PACE Home Visit Em[facility] [address] [place] [phone] Anabelle Valdez 02/02/2025 8:30 AM EST PACE Home Care / PACE Home Visit Em[facility] [address] [place] [phone] Anabelle Valdez 02/03/2025 9:30 AM EST PACE Home Care / PACE Home Visit Em[facility] [address] [place] [phone] Merlin Forbes 02/03/2025 6:00 PM EST PACE Home Care / PACE Home Visit Emilee [facility] [address] [place] [phone] My Phillips 02/04/2025 7:00 AM EST Clinical Support [facility] [place] [facility] [address] [place] [phone] Nkechi Grajeda, RN 02/04/2025 8:15 AM EST Clinical Support [facility] [place] [facility] [address] [place] [phone] Nkechi Grajeda, RN 02/04/2025 9:30 AM EST PACE Home Care / PACE Home Visit [facility] [address] [place] [phone] Merlin Forbes 02/04/2025 6:00 PM EST PACE Home Care / PACE Home Visit [facility] [place] [facility] [address] [place] [phone] My Phillips 02/05/2025 10:00 AM EST PACE Home Care / PACE Home Visit [facility] [place] [facility] [address] [place] [phone] Merlin Forbes 02/05/2025 6:00 PM EST PACE Home Care / PACE Home Visit [facility] [address] [place] [phone] My Phillips 02/06/2025 10:30 AM EST PACE Home Care / PACE Home Visit [facility] [address] [place] [phone] Merlin Forbes 02/06/2025 6:00 PM EST PACE Home Care / PACE Home Visit [facility] [address] [place] [phone] My Phillips 02/07/2025 9:30 AM EST PACE Home Care / PACE Home Visit [facility] [place] [facility] [address] [place] [phone] Merlin Forbes 02/07/2025 6:00 PM EST PACE Home Care / PACE Home Visit [facility] [address] [place] [phone] My Phillips 02/10/2025 9:30 AM EST PACE Home Care / PACE Home Visit [facility] [address] [place] [phone] Merlin Forbes 02/10/2025 6:00 PM EST PACE Home Care / PACE Home Visit [facility] [address] [place] [phone] My Phillips 02/11/2025 7:00 AM EST Clinical Support [facility] [address] [place] [phone] Nkechi Grajeda, EDD 02/11/2025 9:30 AM EST PACE Home Care / PACE Home Visit [facility] [address] [place] [phone] Merlin Forbes 02/11/2025 6:00 PM EST PACE Home Care / PACE Home Visit [facility] [address] [place] [phone] My Phillips 02/12/2025 10:00 AM EST PACE Home Care / PACE Home Visit [facility] [address] [place] [phone] Merlin Forbes 02/12/2025 6:00 PM EST PACE Home Care / PACE Home Visit [facility] [address] [place] [phone] My Phillips 02/13/2025 10:30 AM EST PACE Home Care / PACE Home Visit [facility] [address] [place] [phone] Merlin Forbes 02/13/2025 6:00 PM EST PACE Home Care / PACE Home Visit [facility] [address] [place] [phone] My Phillips 02/18/2025 7:00 AM EST Clinical Support [facility] [address] [place] [phone] Nkechi Grajeda, EDD 02/25/2025 7:00 AM EST Clinical Support [facility] [place] [facility] [address] [place] [phone] Nkechi Grajeda, EDD 02/27/2025 10:40 AM EST Clinical Support [facility] [place] [address] [place] [phone] 03/04/2025 7:00 AM EST Clinical Support [facility] [place] [address] [address] Nkechi Grajeda, EDD 03/04/2025 8:15 AM EST Clinical Support [facility] [address] [place] [phone] Nkechi Grajeda, EDD 03/11/2025 7:00 AM EST Clinical Support [facility] [place] [facility] [address] [phone] Nkechi Grajeda, EDD 03/18/2025 7:00 AM EST Clinical Support [facility] [place] [facility] [address] [address] Nkechi Grajeda, EDD 03/25/2025 7:00 AM EST Clinical Support [facility] [place] [facility] [address] [address] Nkechi Grajeda, EDD 04/01/2025 7:00 AM EST Clinical Support [facility] [place] [facility] [address] [address] Nkechi Grajeda, EDD 04/01/2025 8:15 AM EST Clinical Support [facility] [place] [facility] [address] [place] [phone] Nkechi Grajeda, RN 04/08/2025 7:00 AM EST Clinical Support [facility] [place] [facility] [address] [place] [phone] Nkechi Grajeda, EDD 04/14/2025 9:25 AM EST Office Visit [facility] - [facility] [address] [facility] [address] [place] [address] Dillon Mendosa MD [address] [place] [address] [place] [phone] 04/15/2025 7:00 AM EST Clinical Support [facility] [place] [address] [address] Nkechi Grajeda, EDD 04/22/2025 7:00 AM EST Clinical Support [facility] [place] [address] [address] Nkechi Grajeda, EDD 04/29/2025 7:00 AM EST Clinical Support [facility] [place] [facility] [address] [address] Nkechi Grajeda, EDD 04/29/2025 8:15 AM EST Clinical Support [facility] [place] [address] [address] Nkechi Grajeda, EDD 05/06/2025 7:00 AM EST Clinical Support [facility] [place] [facility] [address] [address] Nkechi Grajeda, EDD 05/13/2025 7:00 AM EST Clinical Support [facility] [place] [address] [address] Nkechi Grajeda, EDD 05/20/2025 7:00 AM EST Clinical Support [facility] [place] [address] [address] Nkechi Grajeda, EDD 05/27/2025 7:00 AM EDT Clinical Support [facility] [place] [facility] [address] [address] Nkechi Grajeda, EDD 05/27/2025 8:15 AM EDT Clinical Support [facility] [place] [address] [address] Nkechi Grajeda, EDD 06/03/2025 7:00 AM EDT Clinical Support [facility] [place] [facility] [address] [place] [phone] Nkechi Grajeda, EDD 06/10/2025 7:00 AM EDT Clinical Support [facility] [place] [facility] [address] [place] [phone] Nkechi Grajeda, EDD 06/17/2025 7:00 AM EDT Clinical Support [facility] [place] [facility] [address] [place] [phone] Nkechi Grajeda, EDD 06/24/2025 7:00 AM EDT Clinical Support [facility] [place] [facility] [address] [place] [phone] Nkechi Grajeda, EDD 06/24/2025 8:15 AM EDT Clinical Support [facility] [place] [address] [phone] Nkechi Grajeda, EDD 07/01/2025 7:00 AM EDT Clinical Support [facility] [place] [facility] [address] [place] [phone] Nkechi Grajeda, EDD 07/08/2025 7:00 AM EDT Clinical Support [facility] [address] [place] [phone] Nkechi Grajeda, EDD 07/15/2025 7:00 AM EDT Clinical Support [facility] [place] [facility] [address] [place] [phone] Nkechi Grajeda, EDD 07/22/2025 8:15 AM EDT Clinical Support [facility] [address] [place] [phone] Nkechi Grajeda, RN 08/19/2025 8:15 AM EDT Clinical Support [facility] [place] [facility] [address] [place] [phone] Nkechi Grajeda, EDD 09/16/2025 8:15 AM EDT Clinical Support [address] [address] Nkechi Grajeda, EDD 10/14/2025 8:15 AM EDT Clinical Support [address] [address] Nkechi Grajeda, EDD 11/11/2025 8:15 AM EDT Clinical Support [address] [address] Nekchi Grajeda RN 12/09/2025 8:15 AM EDT Clinical Support [address] [phone] Nkechi Grajeda, EDD documented as of this encounter Visit Diagnoses Diagnosis Wound of left leg, subsequent encounter Encounter for adjustment or management of cardiac device documented in this encounter Orders PACE Service Orderables Count Last Ordered Date First Ordered Date [facility] 12/11/2024 documented in this encounter Additional Health Concerns Assessment Noted Time PHQ-9 Depression Total Score: 20 025 12:16 PM EDT documented as of this encounter Care Teams Web Merchant Relationship Specialty Start Date End Date Deloris Tobias NP 01 [place] [id number] PCP - General Family Medicine 12/01/24 documented as of this encounter
--- OUTSIDE RECORDS SUMMARY | 2024-12-16 04:27 | XMS_ITS | Encounter Summary ---
Author Organization [facility] Address [address] [place] [address] Care Team Providers Care Lead Customer Service Representative Name Role Phone Deloris Tobias KILN PUSHER Primary Care Provider [phone] Encounter Details Date Type Department Care Team (Late st Contact Info) Description 05/21/2024 Health Home Core Service Emilee MAHONEY [place] [facility] [address] [place] [phone] Deloris Tobias NP 200 [facility] 1 [place] [address] Social History Tobacco Use Types Packs/Day Years Used Date Smoking Tobacco: Every Day Cigarettes Smokeless Tobacco: Never Alcohol Use Standard Drinks/Week [...] [place] [facility] [address] [place] [phone] Merlin Forbes 12/16/2024 11:00 AM EDT Office Visit [facility] [address] [place] [phone] Deloris Tobias, JOHNATHAN [address] [address] 12/16/2024 6:00 PM EDT PACE Home Care / PACE Home Visit Emilee MAHONEY [place] [facility] [address] [place] [phone] My Phillips 12/17/2024 7:00 AM EDT Clinical Support [facility] [address] [place] [phone] Nkechi Grajeda RN 12/17/2024 9:30 AM EDT PACE Home Care / PACE Home Visit Emilee MAHONEY [place] [facility] [address] [place] [phone] Merlin Forbes 12/17/2024 11:00 AM EDT Treatment Emilee MAHONEY MA Occupational Therapy [address] [place] [phone] Tyler Ling OT 12/17/2024 6:00 PM EDT PACE Home Care / PACE Home Visit Emilee [facility]Y [place] [facility] [address] [place] [phone] My Phillips 12/18/2024 10:00 AM EDT PACE Home Care / PACE Home Visit Emilee [facility]HONEY [place] [facility] [address] [place] [phone] Merlin Forbes 12/18/2024 6:00 PM EDT PACE Home Care / PACE Home Visit Emilee MAHONEY [place] [facility] [address] [place] [phone] My Phillips 12/19/2024 10:30 AM EDT PACE Home Care / PACE Home Visit Emilee MAHONEY [place] [facility] [address] [place] [phone] Merlin Forbes 12/19/2024 6:00 PM EDT PACE Home Care / PACE Home Visit Emilee MAHONEY [place] [facility] [address] [place] [phone] My Phillips 12/20/2024 9:00 AM EDT Appointment [address] [address] 12/20/2024 9:30 AM EDT PACE Home Care / PACE Home Visit Emilee MAHONEY [place] [facility] [address] [place] [phone] Merlin Forbes 12/20/2024 6:00 PM EDT PACE Home Care / PACE Home Visit Emilee MAHONEY [place] [facility] [address] [place] [phone] My Phillips 12/21/2024 8:30 AM EDT PACE Home Care / PACE Home Visit Emilee MAHONEY [place] [facility] [address] [place] [phone] Anabelle Valdez 12/22/2024 8:30 AM EDT PACE Home Care / PACE Home Visit Emilee MAHONEY [place] [facility] [address] [place] [phone] Anabelle Valdez 12/23/2024 9:30 AM EDT PACE Home Care / PACE Home Visit Emilee MAHONEY [place] [facility] [address] [place] [phone] Merlin Forbes 12/23/2024 6:00 PM EDT PACE Home Care / PACE Home Visit Emilee MAHONEY [place] [facility] [address] [place] [phone] My Phillips 12/24/2024 7:00 AM EDT Clinical Support [facility] [address] [place] [phone] Nkechi Grajeda RN 12/24/2024 9:30 AM EDT PACE Home Care / PACE Home Visit Emilee MAHONEY [place] [facility] [address] [place] [phone] Merlin Forbes 12/24/2024 6:00 PM EDT PACE Home Care / PACE Home Visit Emilee MAHONEY [place] [facility] [address] [place] [phone] My Phillips 12/25/2024 10:00 AM EDT PACE Home Care / PACE Home Visit Emilee MAHONEY [place] [facility] [address] [place] [phone] Merlin Forbes 12/25/2024 6:00 PM EDT PACE Home Care / PACE Home Visit Emilee MAHONEY [place] [facility] [address] [place] [phone] My Phillips 12/26/2024 10:40 AM EDT Clinical Support Emilee MAHONEY [place] [address] [place] [address] 12/26/2024 6:00 PM EDT PACE Home Care / PACE Home Visit Emilee MAHONEY [place] [facility] [address] [place] [phone] My Phillips 12/27/2024 9:30 AM EDT PACE Home Care / PACE Home Visit Emilee MAHONEY [place] [facility] [address] [place] [phone] Merlin Forbes 12/27/2024 6:00 PM EDT PACE Home Care / PACE Home Visit Emilee MAHONEY [place] [facility] [address] [place] [phone] My Phillips 12/30/2024 9:30 AM EDT PACE Home Care / PACE Home Visit Emilee MAHONEY [place] [facility] [address] [place] [address] Merlin Forbes 12/30/2024 6:00 PM EDT PACE Home Care / PACE Home Visit Emilee MAHONEY [place] [facility] [address] [place] [address] My Phillips 12/31/2024 7:00 AM EDT Clinical Support [facility] [address] [place] [phone] Nkechi Grajeda RN 12/31/2024 9:30 AM EDT PACE Home Care / PACE Home Visit Emilee MAHONEY [place] [facility] [address] [place] [phone] Merlin Forbes 12/31/2024 10:00 AM EDT Ancillary Procedure [facility] - [address] [place] [address] 12/31/2024 6:00 PM EDT PACE Home Care / PACE Home Visit Emilee MAHONEY [place] [facility] [address] [place] [phone] My Phillips 01/01/2025 10:00 AM EDT PACE Home Care / PACE Home Visit Emilee MAHONEY [place] [facility] [address] [place] [phone] Merlin Forbes 01/01/2025 6:00 PM EDT PACE Home Care / PACE Home Visit Emilee MAHONEY [place] [facility] [address] [place] [phone] My Phillips 01/02/2025 10:30 AM EDT PACE Home Care / PACE Home Visit Emilee MAHONEY [place] [facility] [address] [place] [phone] Merlin Forbes 01/02/2025 3:00 PM EDT Clinical Support Emilee MAHONEY [place] [address] [place] [address] 01/02/2025 6:00 PM EDT PACE Home Care / PACE Home Visit Emilee MAHONEY [place] [facility] [address] [place] [phone] My hPillips 01/03/2025 9:30 AM EDT PACE Home Care / PACE Home Visit Emilee MAHONEY [place] [facility] [address] [place] [phone] Merlin Forbes 01/03/2025 6:00 PM EDT PACE Home Care / PACE Home Visit Emilee MAHONEY [place] [facility] [address] [place] [phone] My Phillips 01/04/2025 8:30 AM EDT PACE Home Care / PACE Home Visit Emilee MAHONEY [place] [facility] [address] [place] [phone] Anabelle Valdez 01/05/2025 8:30 AM EDT PACE Home Care / PACE Home Visit Emilee MAHONEY [place] [facility] [address] [place] [phone] Anabelle Valdez 01/06/2025 9:30 AM EDT PACE Home Care / PACE Home Visit Emilee MAHONEY [place] [facility] [address] [place] [phone] Merlin Forbes 01/06/2025 6:00 PM EDT PACE Home Care / PACE Home Visit Emilee MAHONEY [place] [facility] [address] [place] [phone] My Phillips 01/07/2025 7:00 AM EDT Clinical Support [facility] [address] [place] [phone] Nkechi Grajeda RN 01/07/2025 8:15 AM EDT Clinical Support [facility] [address] [place] [address] Nkechi Grajeda RN 01/07/2025 9:30 AM EDT PACE Home Care / PACE Home Visit Emilee MAHONEY [place] [facility] [address] [place] [phone] Merlin Forbes 01/07/2025 6:00 PM EDT PACE Home Care / PACE Home Visit Emilee MAHONEY [place] [facility] [address] [place] [phone] My Phillips 01/08/2025 10:00 AM EDT PACE Home Care / PACE Home Visit Emilee MAHONEY [place] [facility] [address] [place] [phone] Merlin Forbes 01/08/2025 6:00 PM EDT PACE Home Care / PACE Home Visit Emilee MAHONEY [place] [facility] [address] [place] [phone] My Phillips 01/09/2025 10:30 AM EDT PACE Home Care / PACE Home Visit Emilee MAHONEY [place] [facility] [address] [place] [phone] Merlin Forbes 01/09/2025 6:00 PM EDT PACE Home Care / PACE Home Visit Emilee MAHONEY [place] [facility] [address] [place] [phone] My Phillips 01/10/2025 9:30 AM EDT PACE Home Care / PACE Home Visit Emilee MAHONEY [place] [facility] [address] [place] [phone] Merlin Forbes 01/10/2025 10:00 AM EDT Clinical Support Emilee MAHONEY [place] [address] [place] [address] 01/10/2025 6:00 PM EDT PACE Home Care / PACE Home Visit Emilee MAHONEY [place] [facility] [address] [place] [address] My Phillips 01/13/2025 9:30 AM EDT PACE Home Care / PACE Home Visit Emilee MAHONEY [place] [facility] [address] [place] [phone] Merlin Forbes 01/13/2025 6:00 PM EDT PACE Home Care / PACE Home Visit Emilee MAHONEY [place] [facility] [address] [place] [phone] My Phillips 01/14/2025 7:00 AM EDT Clinical Support [facility] [address] [place] [phone] Nkechi Grajeda RN 01/14/2025 9:30 AM EDT PACE Home Care / PACE Home Visit Emilee MAHONEY [place] [facility] [address] [place] [phone] Merlin Forbes 01/14/2025 6:00 PM EDT PACE Home Care / PACE Home Visit Emilee MAHONEY [place] [facility] [address] [place] [phone] My Phillips 01/15/2025 10:00 AM EDT PACE Home Care / PACE Home Visit Emilee MAHONEY [place] [facility] [address] [place] [address] Merlin Forbes 01/15/2025 6:00 PM EDT PACE Home Care / PACE Home Visit Emilee MAHONEY [place] [facility] [address] [place] [phone] My Phillips 01/16/2025 10:30 AM EDT PACE Home Care / PACE Home Visit Emilee MAHONEY [place] [facility] [address] [place] [phone] Merlin Forbes 01/16/2025 6:00 PM EDT PACE Home Care / PACE Home Visit Emilee MAHONEY [place] [facility] [address] [place] [phone] My Phillisp 01/17/2025 9:30 AM EDT PACE Home Care / PACE Home Visit Emilee MAHONEY [place] [facility] [address] [place] [phone] Merlin Forbes 01/17/2025 6:00 PM EDT PACE Home Care / PACE Home Visit Emilee MAHONEY [place] [facility] [address] [place] [phone] My Phillips 01/18/2025 8:30 AM EDT PACE Home Care / PACE Home Visit Emilee MAHONEY [place] [facility] [address] [place] [phone] Anabelle Valdez 01/19/2025 8:30 AM EST PACE Home Care / PACE Home Visit Emilee MAHONEY [place] [facility] [address] [place] [phone] Anabelle Valdez 01/20/2025 9:30 AM EST PACE Home Care / PACE Home Visit Emilee MAHONEY [place] [facility] [address] [place] [phone] Merlin Forbes 01/20/2025 6:00 PM EST PACE Home Care / PACE Home Visit Emilee MAHONEY [place] [facility] [address] [place] [phone] My Phillips 01/21/2025 7:00 AM EST Clinical Support [facility] [place] [facility] [address] [place] [phone] Nkechi Grajeda RN 01/21/2025 9:30 AM EST P[facility] Home Care / PACE Home Visit Emilee MAHONEY [place] [facility] [address] [place] [address] Merlin Forbes 01/21/2025 10:45 AM EST Clinical Support Emilee MAHONEY [place] [address] [place] [address] 01/21/2025 6:00 PM EST [facility] Home Care / PACE Home Visit Emilee MAHONEY [place] [facility] [address] [place] [address] My Phillips 01/22/2025 10:00 AM EST [facility] Home [facility] / PACE Home Visit Emilee MAHONEY [place] [facility] [address] [place] [address] Merlin Forbes 01/22/2025 6:00 PM EST P[facility] Home [facility] / PACE Home Visit Emilee MAHONEY [place] [facility] [address] [place] [address] My Phillips 01/23/2025 10:30 AM EST PACE Home Care / PACE Home Visit Emilee MAHONEY [place] [facility] [address] [place] [address] Merlin Forbes 01/23/2025 6:00 PM EST PACE Home Care / PACE Home Visit Emilee MAHONEY [place] [facility] [address] [place] [address] My Phillips 01/24/2025 9:30 AM EST P[facility] Home [facility] / PACE Home Visit Emilee MAHONEY [place] [facility] [address] [place] [address] Merlin Forbes 01/24/2025 6:00 PM EST PACE Home [facility] / PACE Home Visit Emilee MAHONEY [place] [facility] [address] [place] [address] My Phillips 01/27/2025 9:30 AM EST PACE Home Care / PACE Home Visit Emilee MAHONEY [place] [facility] [address] [place] [address] Merlin Forbes 01/27/2025 6:00 PM EST PACE Home [facility] / PACE Home Visit Emilee MAHONEY [place] [facility] [address] [place] [address] My Phillips 01/28/2025 7:00 AM EST Clinical Support [facility] [address] [place] [address] Nkechi Grajeda RN 01/28/2025 9:30 AM EST [facility] Home [facility] / PACE Home Visit Emilee MA[facility] [place] [facility] [address] [place] [address] Merlin Forbes 01/28/2025 6:00 PM EST PACE Home Care / PACE Home Visit Emilee MAHONEY [place] [facility] [address] [place] [phone] My Phillips 01/29/2025 10:00 AM EST PACE Home [facility] / PACE Home Visit Emilee MAHONEY [place] [facility] [address] [place] [phone] Merlin Forbes 01/29/2025 6:00 PM EST P[facility] Home [facility] / PACE Home Visit Emilee MAHONEY [place] [facility] [address] [place] [phone] My Phillips 01/30/2025 10:30 AM EST P[facility] Home [facility] / PACE Home Visit Emilee MAHONEY [facility] [address] [place] [phone] Merlin Forbes 01/30/2025 6:00 PM EST PACE Home [facility] / PACE Home Visit Emilee MAHONEY [facility] [address] [place] [address] My Phillips 01/31/2025 9:30 AM EST PACE Home [facility] / PACE Home Visit Emilee MAHONEY [place] [facility] [address] [place] [address] Merlin Forbes 01/31/2025 11:00 AM EST PACE External Visit Emilee MAHONEY [place] [address] [place] [address] 01/31/2025 6:00 PM EST [facility] Home [facility] / PACE Home Visit Emilee MAHONEY [place] [facility] [address] [place] [address] My Phillips 02/01/2025 8:30 AM EST PACE Home Care / PACE Home Visit Emilee MAH[facility] [place] [facility] [address] [place] [phone] Anabelle Valdez 02/02/2025 8:30 AM EST PACE Home [facility] / PACE Home Visit Emilee MA[facility] [address] [place] [phone] Anabelle Valdez 02/03/2025 9:30 AM EST P[facility] Home [facility] / PACE Home Visit Emilee MAH[facility]Y [facility] [address] [place] [phone] Merlin Forbes 02/03/2025 6:00 PM EST PACE Home Care / PACE Home Visit Emilee MAHONEY [facility] [address] [place] [phone] My Phillips 02/04/2025 7:00 AM EST Clinical Support [facility] [place] [facility] [address] [place] [address] Nkechi Grajeda, EDD 02/04/2025 8:15 AM EST Clinical Support [facility] [place] [facility] [address] [place] [phone] Nkechi Grajeda, RN 02/04/2025 9:30 AM EST PACE Home Care / PACE Home Visit Emilee [facility]ONEY [facility] [address] [place] [phone] Merlin Forbes 02/04/2025 6:00 PM EST PACE Home [facility] / PACE Home Visit [facility] [place] [facility] [address] [place] [phone] My Phillips 02/05/2025 10:00 AM EST PACE Home [facility] / [facility]ACE Home Visit [facility] [place] [facility] [address] [place] [phone] Merlin Forbes 02/05/2025 6:00 PM EST PACE Home [facility] / PACE Home Visit [facility] [place] [facility] [address] [place] [phone] My Phillips 02/06/2025 10:30 AM EST PACE Home Care / PACE Home Visit [facility] [place] [facility] [address] [place] [phone] Merlin Forbes 02/06/2025 6:00 PM EST PACE Home Care / PACE Home Visit [facility] [place] [facility] [address] [place] [phone] My Phillips 02/07/2025 9:30 AM EST P[facility] Home [facility] / [facility] Home Visit [facility] [place] [facility] [address] [place] [phone] Merlin Forbes 02/07/2025 6:00 PM EST [facility] Home [facility] / [facility] Home Visit [facility] [place] [facility] [address] [place] [phone] My Phillips 02/10/2025 9:30 AM EST PACE Home Care / PACE Home Visit [facility] [place] [facility] [address] [place] [phone] Merlin Forbes 02/10/2025 6:00 PM EST P[facility] Home [facility] / [facility] Home Visit [facility] [place] [facility] [address] [place] [address] My Phillips 02/11/2025 7:00 AM EST Clinical Support [facility] [address] [place] [phone] Nkechi Grajeda, EDD 02/11/2025 9:30 AM EST [facility] Home [facility] / PACE Home Visit [facility] [address] [place] [phone] Merlin Forbes 02/11/2025 6:00 PM EST P[facility] Home [facility] / PACE Home Visit Emilee [facility] [address] [place] [phone] My Phillips 02/12/2025 10:00 AM EST P[facility] Home Care / PACE Home Visit Emilee [facility] [address] [place] [phone] Merlin Forbes 02/12/2025 6:00 PM EST P[facility] Home [facility] / PACE Home Visit Emilee [facility] [address] [place] [address] My Phillips 02/13/2025 10:30 AM EST P[facility] Home Care / PACE Home Visit Emilee [facility] [address] [place] [phone] Merlin Forbes 02/13/2025 6:00 PM EST P[facility] Home [facility] / PACE Home Visit Emilee [facility] [address] [place] [phone] My Phillips 02/18/2025 7:00 AM EST Clinical Support [facility] [address] [place] [phone] Nkechi Grajeda RN 02/25/2025 7:00 AM EST Clinical Support [facility] [place] [facility] [address] [place] [phone] Nkechi Grajeda, EDD 02/27/2025 10:40 AM EST Clinical Support [facility] [address] [place] [phone] 03/04/2025 7:00 AM EST Clinical Support [facility] [place] [facility] [address] [place] [phone] Nkechi Grajeda, EDD 03/04/2025 8:15 AM EST Clinical Support [facility] [place] [facility] [address] [place] [phone] Nkechi Grajeda, EDD 03/11/2025 7:00 AM EST Clinical Support [facility] [address] [place] [phone] Nkechi Grajeda, EDD 03/18/2025 7:00 AM EST Clinical Support [facility] [address] [place] [phone] Nkechi Grajeda, EDD 03/25/2025 7:00 AM EST Clinical Support [facility] [address] [place] [phone] Nkechi Grajeda, EDD 04/01/2025 7:00 AM EST Clinical Support [facility] [address] [place] [phone] Nkechi Grajeda, EDD 04/01/2025 8:15 AM EST Clinical Support [facility] [address] [place] [phone] Nkechi Grajeda, EDD 04/08/2025 7:00 AM EST Clinical Support [facility] [place] [facility] [address] [place] [phone] Nkechi Grajeda, EDD 04/14/2025 9:25 AM EST Office Visit [facility] - [facility] [address] [facility] [address] [place] [address] Dillon Mendosa MD [address] [place] [address] [place] [address] 04/15/2025 7:00 AM EST Clinical Support [facility] [place] [address] [address] Nkechi Grajeda, EDD 04/22/2025 7:00 AM EST Clinical Support [facility] [place] [facility] [address] [address] Nkechi Grajeda, EDD 04/29/2025 7:00 AM EST Clinical Support [facility] [place] [facility] [address] [address] Nkechi Grajeda, EDD 04/29/2025 8:15 AM EST Clinical Support [facility] [place] [facility] [address] [phone] Nkechi Grajeda, EDD 05/06/2025 7:00 AM EST Clinical Support [facility] [place] [facility] [address] [phone] Nkechi Grajeda, EDD 05/13/2025 7:00 AM EST Clinical Support [facility] [place] [facility] [address] [address] Nkechi Grajeda, EDD 05/20/2025 7:00 AM EST Clinical Support [facility] [place] [facility] [address] [address] Nkechi Grajeda, EDD 05/27/2025 7:00 AM EDT Clinical Support [facility] [address] [place] [phone] Nkechi Grajeda, EDD 05/27/2025 8:15 AM EDT Clinical Support [facility] [address] [place] [phone] Nkechi Grajeda, EDD 06/03/2025 7:00 AM EDT Clinical Support [facility] [address] [place] [phone] Nkechi Grajeda, EDD 06/10/2025 7:00 AM EDT Clinical Support [facility] [address] [place] [phone] Nkechi Grajeda, EDD 06/17/2025 7:00 AM EDT Clinical Support [facility] [place] [facility] [address] [address] Nkechi Grajeda, EDD 06/24/2025 7:00 AM EDT Clinical Support [facility] [place] [facility] [address] [place] [phone] Nkechi Grajeda, EDD 06/24/2025 8:15 AM EDT Clinical Support [facility] [place] [facility] [address] [phone] Nkechi Grajeda, EDD 07/01/2025 7:00 AM EDT Clinical Support [facility] [place] [facility] [address] [place] [phone] Nkechi Grajeda, EDD 07/08/2025 7:00 AM EDT Clinical Support [facility] [place] [facility] [address] [place] [phone] Nkechi Grajeda, EDD 07/15/2025 7:00 AM EDT Clinical Support [facility] [address] [place] [phone] Nkechi Grajeda, EDD 07/22/2025 8:15 AM EDT Clinical Support [facility] [address] [place] [phone] Nkechi Grajeda, RN 08/19/2025 8:15 AM EDT Clinical Support [facility] [address] [place] [phone] Nkechi Grajeda, RN 09/16/2025 8:15 AM EDT Clinical Support [address] [phone] Nkechi Grajeda RN 10/14/2025 8:15 AM EDT Clinical Support [address] [phone] Nkechi Grajeda RN 11/11/2025 8:15 AM EDT Clinical Support [address] [phone] Nkechi Grajeda RN 12/09/2025 8:15 AM EDT Clinical Support [address] [phone] Nkechi Grajeda, RN documented as of this encounter Visit Diagnoses Not on filedocumented in this encounter Care Teams Lead Customer Service Representative Relationship Specialty Start Date End Date Deloris Tobias NP [address] [place] [id number] PCP - General Family Medicine 12/01/24 documented as of this encounter
--- OUTSIDE RECORDS SUMMARY | 2024-12-16 04:28 | XMS_ITS ---
Author Organization [facility] Address [address] [place] [address] Phone Care Team Providers [employer] Curer Name Role Phone Deloris Tobias SOLUTIONS SPECIALIST Primary Care Provider [phone] [facility] Status:Enrolled (Active) Start date:05/18/2024 Related program episode:Program of [facility]-Inclusive Care for the Elderly (Active) Case Team Name Relationship Phone Deloris Tobias SOLUTIONS SPECIALIST(Responsible Staff) Nurse Sascha titioner [phone] Continued Care and Services Coordination
--- OUTSIDE RECORDS SUMMARY | 2024-12-16 04:28 | XMS_ITS | Encounter Summary ---
Author Organization [facility] Address [address] [place] [address] Care Team Providers Care Maintenance Mechanic Telephone Name Role Phone Deloris Tobias JEWELRY MAKING INSTRUCTOR Primary Care Provider [phone] Encounter Details Date Type Department Care Team (Late st Contact Info) Description 07/30/2024 Health Home [facility] [address] [place] [address] Lola Frazier RN Social History Tobacco Use Types Packs/Day [...] In [facility] A[facility] Services [address] [place] [address] Merlin Forbes 12/16/2024 11:00 AM EDT Office Visit [facility] [address] [place] [phone] Deloris Tobias, JOHNATHAN [address] [address] 12/16/2024 6:00 PM EDT PACE Home Care / PACE Home Visit Emilee [facility]HONEY [facility] [address] [place] [address] My Phillips 12/17/2024 7:00 AM EDT Clinical Support [facility] [address] [place] [phone] Nkechi Grajeda RN 12/17/2024 9:30 AM EDT PACE Home Care / PACE Home Visit Emilee [facility] [address] [place] [phone] Merlin Forbes 12/17/2024 11:00 AM EDT Treatment Emilee MAHONEY MA Occupational Therapy [address] [place] [phone] Tyler Ling OT 12/17/2024 6:00 PM EDT PACE Home Care / PACE Home Visit Em[facility] [address] [place] [phone] My Phillips 12/18/2024 10:00 AM EDT PACE Home Care / PACE Home Visit Emilee [facility] [address] [place] [phone] Merlin Forbes 12/18/2024 6:00 PM EDT PACE Home Care / PACE Home Visit Emilee [facility] [address] [place] [phone] My Phillips 12/19/2024 10:30 AM EDT PACE Home Care / PACE Home Visit Emilee [facility] [address] [place] [phone] Merlin Forbes 12/19/2024 6:00 PM EDT PACE Home Care / PACE Home Visit Em[facility] [address] [place] [phone] My Phillips 12/20/2024 9:00 AM EDT Appointment [address] [address] 12/20/2024 9:30 AM EDT PACE Home Care / PACE Home Visit Emilee [facility] [address] [place] [phone] Merlin Forbes 12/20/2024 6:00 PM EDT PACE Home Care / PACE Home Visit Emilee [facility] [address] [place] [phone] My Phillips 12/21/2024 8:30 AM EDT PACE Home Care / PACE Home Visit [facility] [address] [place] [phone] Anabelle Valdez 12/22/2024 8:30 AM EDT PACE Home Care / PACE Home Visit Emilee [facility] [address] [place] [phone] Anabelle Valdez 12/23/2024 9:30 AM EDT PACE Home Care / PACE Home Visit Emilee [facility] [address] [place] [phone] Merlin Forbes 12/23/2024 6:00 PM EDT PACE Home Care / PACE Home Visit Emilee [facility] [address] [place] [phone] My Phillips 12/24/2024 7:00 AM EDT Clinical Support [facility] [address] [place] [address] Nkechi Grajeda RN 12/24/2024 9:30 AM EDT PACE Home Care / PACE Home Visit Em[facility] [address] [place] [address] Merlin Forbes 12/24/2024 6:00 PM EDT PACE Home Care / PACE Home Visit Emilee [facility]Y [facility] [address] [place] [phone] My Phillips 12/25/2024 10:00 AM EDT PACE Home Care / PACE Home Visit Emilee [facility] [address] [place] [address] Merlin Forbes 12/25/2024 6:00 PM EDT PACE Home Care / PACE Home Visit Emilee [facility] [address] [place] [phone] My Phillips 12/26/2024 10:40 AM EDT Clinical Support Emilee MAHONEY [place] [address] [place] [address] 12/26/2024 6:00 PM EDT PACE Home Care / PACE Home Visit Emilee [facility] [address] [place] [phone] My Phillips 12/27/2024 9:30 AM EDT PACE Home Care / PACE Home Visit Emilee [facility] [address] [place] [phone] Merlin Forbes 12/27/2024 6:00 PM EDT PACE Home Care / PACE Home Visit Emilee [facility] [address] [place] [phone] My Phillips 12/30/2024 9:30 AM EDT PACE Home Care / PACE Home Visit Emilee [facility] [address] [place] [address] Merlin Forbes 12/30/2024 6:00 PM EDT PACE Home Care / PACE Home Visit Emilee [facility] [address] [place] [address] My Phillips 12/31/2024 7:00 AM EDT Clinical Support [facility] [address] [place] [address] Nkechi Grajeda RN 12/31/2024 9:30 AM EDT PACE Home Care / PACE Home Visit Emilee [facility]ONEY [facility] [address] [place] [phone] Merlin Forbes 12/31/2024 10:00 AM EDT Ancillary Procedure [facility] [address] [place] [address] 12/31/2024 6:00 PM EDT PACE Home Care / PACE Home Visit Emilee MAHONEY [facility] [address] [place] [phone] My Phillips 01/01/2025 10:00 AM EDT PACE Home Care / PACE Home Visit Emilee [facility]ONEY [facility] [address] [place] [phone] Merlin Forbes 01/01/2025 6:00 PM EDT PACE Home Care / PACE Home Visit Emilee [facility] [address] [place] [phone] My Phillips 01/02/2025 10:30 AM EDT PACE Home Care / PACE Home Visit Emilee [facility] [address] [place] [phone] Merlin Forbes 01/02/2025 3:00 PM EDT Clinical Support Emilee MAHONEY MA [address] [place] [address] 01/02/2025 6:00 PM EDT PACE Home Care / PACE Home Visit Emilee [facility] [address] [place] [phone] My Phillips 01/03/2025 9:30 AM EDT PACE Home Care / PACE Home Visit Emilee [facility] [address] [place] [phone] Merlin Forbes 01/03/2025 6:00 PM EDT PACE Home Care / PACE Home Visit Emilee [facility] [address] [place] [phone] My Phillips 01/04/2025 8:30 AM EDT PACE Home Care / PACE Home Visit Emilee [facility] [address] [place] [phone] Anabelle Valdez 01/05/2025 8:30 AM EDT PACE Home Care / PACE Home Visit Emilee [facility] [address] [place] [phone] Anabelle Valdez 01/06/2025 9:30 AM EDT PACE Home Care / PACE Home Visit Emilee [facility] [address] [place] [phone] Merlin Fobres 01/06/2025 6:00 PM EDT PACE Home Care / PACE Home Visit Emilee [facility] [address] [place] [phone] My Phillips 01/07/2025 7:00 AM EDT Clinical Support [facility] [address] [place] [phone] Nkechi Grajeda RN 01/07/2025 8:15 AM EDT Clinical Support [facility] [address] [place] [address] Nkechi Grajeda RN 01/07/2025 9:30 AM EDT PACE Home Care / PACE Home Visit Emilee [facility] [address] [place] [phone] Merlin Forbes 01/07/2025 6:00 PM EDT PACE Home Care / PACE Home Visit Emilee [facility] [address] [place] [phone] My Phillips 01/08/2025 10:00 AM EDT PACE Home Care / PACE Home Visit Em[facility] [address] [place] [phone] Merlin Forbes 01/08/2025 6:00 PM EDT PACE Home Care / PACE Home Visit Em[facility] [address] [place] [phone] My Phillips 01/09/2025 10:30 AM EDT PACE Home Care / PACE Home Visit Em[facility] [address] [place] [phone] Merlin Forbes 01/09/2025 6:00 PM EDT PACE Home Care / PACE Home Visit Emilee [facility]Y [facility] [address] [place] [phone] My Phillips 01/10/2025 9:30 AM EDT PACE Home Care / PACE Home Visit Em[facility] [address] [place] [phone] Merlin Forbes 01/10/2025 10:00 AM EDT Clinical Support Emilee MAHONEY MA [address] [place] [phone] 01/10/2025 6:00 PM EDT PACE Home Care / PACE Home Visit Emilee [facility]HONEY [facility] [address] [place] [address] My Phillips 01/13/2025 9:30 AM EDT PACE Home Care / PACE Home Visit Em[facility] [address] [place] [phone] Merlin Forbes 01/13/2025 6:00 PM EDT PACE Home Care / PACE Home Visit Em[facility] [address] [place] [phone] My Phillips 01/14/2025 7:00 AM EDT Clinical Support [facility] [address] [place] [phone] Nkechi Grajeda RN 01/14/2025 9:30 AM EDT PACE Home Care / PACE Home Visit [facility] [address] [place] [phone] Merlin Forbes 01/14/2025 6:00 PM EDT PACE Home Care / PACE Home Visit Em[facility] [address] [place] [phone] My Phillips 01/15/2025 10:00 AM EDT PACE Home Care / PACE Home Visit [facility] [address] [place] [phone] Merlin Forbes 01/15/2025 6:00 PM EDT PACE Home Care / PACE Home Visit Em[facility] [address] [place] [phone] My Phillips 01/16/2025 10:30 AM EDT PACE Home Care / PACE Home Visit [facility] [address] [place] [phone] Merlin Forbes 01/16/2025 6:00 PM EDT PACE Home Care / PACE Home Visit Em[facility] [address] [place] [address] My Phillips 01/17/2025 9:30 AM EDT PACE Home Care / PACE Home Visit Em[facility] [address] [place] [address] Merlin Forbes 01/17/2025 6:00 PM EDT PACE Home Care / PACE Home Visit [facility] [address] [place] [phone] My Phillips 01/18/2025 8:30 AM EDT PACE Home Care / PACE Home Visit [facility] [address] [place] [phone] Anabelle Valdez 01/19/2025 8:30 AM EST PACE Home Care / PACE Home Visit [facility] [address] [place] [phone] Anabelle Valdez 01/20/2025 9:30 AM EST PACE Home Care / PACE Home Visit [facility] [address] [place] [phone] Merlin Forbes 01/20/2025 6:00 PM EST PACE Home Care / PACE Home Visit [facility] [address] [place] [address] My Phillips 01/21/2025 7:00 AM EST Clinical Support [facility] [address] [place] [address] Nkechi Grajeda RN 01/21/2025 9:30 AM EST PACE Home Care / PACE Home Visit [facility] [address] [place] [phone] Merlin Forbes 01/21/2025 10:45 AM EST Clinical Support [facility] [place] [address] [place] [address] 01/21/2025 6:00 PM EST PACE Home Care / PACE Home Visit [facility] [address] [place] [phone] My Phillips 01/22/2025 10:00 AM EST PACE Home Care / PACE Home Visit [facility] [address] [place] [phone] Merlin Forbes 01/22/2025 6:00 PM EST PACE Home Care / PACE Home Visit [facility] [address] [place] [phone] My Phillips 01/23/2025 10:30 AM EST PACE Home Care / PACE Home Visit [facility] [address] [place] [phone] Merlin Forbes 01/23/2025 6:00 PM EST PACE Home Care / PACE Home Visit [facility] [address] [place] [phone] My Phillips 01/24/2025 9:30 AM EST PACE Home Care / PACE Home Visit [facility] [address] [place] [phone] Merlin Forbes 01/24/2025 6:00 PM EST PACE Home Care / PACE Home Visit [facility] [address] [place] [phone] My Phillips 01/27/2025 9:30 AM EST PACE Home Care / PACE Home Visit [facility] [address] [place] [phone] Merlin Forbes 01/27/2025 6:00 PM EST PACE Home Care / PACE Home Visit [facility] [address] [place] [phone] My Phillips 01/28/2025 7:00 AM EST Clinical Support [facility] [address] [place] [phone] Nkechi Grajeda RN 01/28/2025 9:30 AM EST PACE Home Care / PACE Home Visit [facility] [address] [place] [phone] Merlin Forbes 01/28/2025 6:00 PM EST PACE Home Care / PACE Home Visit [facility] [address] [place] [phone] My Phillips 01/29/2025 10:00 AM EST PACE Home Care / PACE Home Visit [facility] [address] [place] [phone] Merlin Forbes 01/29/2025 6:00 PM EST PACE Home Care / PACE Home Visit [facility] [address] [place] [phone] My Phillips 01/30/2025 10:30 AM EST PACE Home Care / PACE Home Visit [facility] [address] [place] [phone] Merlin Forbes 01/30/2025 6:00 PM EST PACE Home Care / PACE Home Visit [facility] [address] [place] [phone] My Phillips 01/31/2025 9:30 AM EST PACE Home Care / PACE Home Visit [facility] [address] [place] [phone] Merlin Forbes 01/31/2025 11:00 AM EST PACE External Visit [facility] [place] [address] [place] [address] 01/31/2025 6:00 PM EST PACE Home Care / PACE Home Visit [facility] [address] [place] [phone] My Phillips 02/01/2025 8:30 AM EST PACE Home Care / PACE Home Visit [facility] [address] [place] [phone] Anabelle Valdez 02/02/2025 8:30 AM EST PACE Home Care / PACE Home Visit [facility] [address] [place] [phone] Anabelle Valdez 02/03/2025 9:30 AM EST PACE Home Care / PACE Home Visit [facility] [address] [place] [phone] Merlin Forbes 02/03/2025 6:00 PM EST PACE Home Care / PACE Home Visit [facility] [address] [place] [phone] My Phillips 02/04/2025 7:00 AM EST Clinical Support [facility] [address] [place] [phone] Nkechi Grajeda, EDD 02/04/2025 8:15 AM EST Clinical Support [facility] [address] [place] [phone] Nkechi Grajeda, EDD 02/04/2025 9:30 AM EST PACE Home Care / PACE Home Visit [facility] [address] [place] [phone] Merlin Forbes 02/04/2025 6:00 PM EST PACE Home Care / PACE Home Visit [facility] [address] [place] [address] My Phillips 02/05/2025 10:00 AM EST PACE Home Care / PACE Home Visit [facility] [place] [facility] [address] [place] [phone] Merlin Forbes 02/05/2025 6:00 PM EST PACE Home Care / PACE Home Visit [facility] [place] [facility] [address] [place] [phone] My Phillips 02/06/2025 10:30 AM EST PACE Home Care / P[facility] Visit [facility] [address] [place] [phone] Merlin Forbes 02/06/2025 6:00 PM EST PACE Home Care / PACE Home Visit [facility] [address] [place] [phone] My Phillips 02/07/2025 9:30 AM EST PACE Home Care / PACE Home Visit [facility] [address] [place] [phone] Merlin Forbes 02/07/2025 6:00 PM EST PACE Home Care / PACE Home Visit [facility] [address] [place] [phone] My Phillips 02/10/2025 9:30 AM EST PACE Home Care / PACE Home Visit [facility] [address] [place] [phone] Merlin Forbes 02/10/2025 6:00 PM EST PACE Home Care / PACE Home Visit [facility] [address] [place] [phone] My Phillips 02/11/2025 7:00 AM EST Clinical Support [facility] [address] [place] [address] Nkechi Grajeda RN 02/11/2025 9:30 AM EST PACE Home Care / PACE Home Visit [facility] [address] [place] [phone] Merlin Forbes 02/11/2025 6:00 PM EST PACE Home Care / PACE Home Visit [facility] [address] [place] [phone] My Phillips 02/12/2025 10:00 AM EST PACE Home Care / P[facility] Home Visit [facility] [address] [place] [phone] Merlin Forbes 02/12/2025 6:00 PM EST PACE Home Care / P[facility] Home Visit [facility] [address] [place] [phone] My Phillips 02/13/2025 10:30 AM EST PACE Home Care / PACE Home Visit [facility] [address] [place] [phone] Merlin Forbes 02/13/2025 6:00 PM EST PACE Home Care / PACE Home Visit [facility] [address] [place] [phone] My Phillips 02/18/2025 7:00 AM EST Clinical Support [facility] [address] [place] [address] Nkechi Grajeda RN 02/25/2025 7:00 AM EST Clinical Support [facility] [address] [place] [phone] Nkechi Grajeda RN 02/27/2025 10:40 AM EST Clinical Support [facility] [place] [address] [place] [phone] 03/04/2025 7:00 AM EST Clinical Support [facility] [place] [address] [phone] Nkechi Grajeda, EDD 03/04/2025 8:15 AM EST Clinical Support [facility] [place] [address] [address] Nkechi Grajeda RN 03/11/2025 7:00 AM EST Clinical Support [facility] [place] [facility] [address] [phone] Nkechi Grajeda, EDD 03/18/2025 7:00 AM EST Clinical Support [facility] [place] [facility] [address] [phone] Nkechi Grajeda, EDD 03/25/2025 7:00 AM EST Clinical Support [facility] [place] [facility] [address] [address] Nkechi Grajeda, EDD 04/01/2025 7:00 AM EST Clinical Support [facility] [place] [facility] [address] [phone] Nkechi Grajeda, EDD 04/01/2025 8:15 AM EST Clinical Support [facility] [place] [facility] [address] [address] Nkechi Grajeda RN 04/08/2025 7:00 AM EST Clinical Support [facility] [place] [address] [phone] Nkechi Grajeda, EDD 04/14/2025 9:25 AM EST Office Visit [facility] [address] [facility] [address] [place] [address] Dillon Mendosa MD [address] [place] [address] [place] [address] 04/15/2025 7:00 AM EST Clinical Support [facility] [address] [place] [phone] Nkechi Grajeda, EDD 04/22/2025 7:00 AM EST Clinical Support [facility] [address] [place] [phone] Nkechi Grajeda, EDD 04/29/2025 7:00 AM EST Clinical Support [facility] [address] [place] [phone] Nkechi Grajeda, EDD 04/29/2025 8:15 AM EST Clinical Support [facility] [address] [place] [phone] Nkechi Grajeda, EDD 05/06/2025 7:00 AM EST Clinical Support [facility] [place] [facility] [address] [phone] Nkechi Grajeda, EDD 05/13/2025 7:00 AM EST Clinical Support [facility] [address] [place] [phone] Nkechi Grajeda, EDD 05/20/2025 7:00 AM EST Clinical Support [facility] [address] [place] [phone] Nkechi Grajeda, EDD 05/27/2025 7:00 AM EDT Clinical Support [facility] [address] [place] [phone] Nkechi Grajeda, EDD 05/27/2025 8:15 AM EDT Clinical Support [facility] [address] [place] [phone] Nkechi Grajeda, EDD 06/03/2025 7:00 AM EDT Clinical Support [facility] [address] [place] [phone] Nkechi Grajeda, EDD 06/10/2025 7:00 AM EDT Clinical Support [facility] [address] [place] [phone] Nkechi Grajeda, EDD 06/17/2025 7:00 AM EDT Clinical Support [facility] [address] [place] [phone] Nkechi Grajeda, EDD 06/24/2025 7:00 AM EDT Clinical Support [facility] [address] [place] [phone] Nkechi Grajeda, EDD 06/24/2025 8:15 AM EDT Clinical Support [facility] [address] [place] [phone] Nkechi Grajeda, EDD 07/01/2025 7:00 AM EDT Clinical Support [facility] [place] [facility] [address] [phone] Nkechi Grajeda, EDD 07/08/2025 7:00 AM EDT Clinical Support [facility] [address] [place] [phone] Nkechi Grajeda, EDD 07/15/2025 7:00 AM EDT Clinical Support [facility] [address] [place] [phone] Nkechi Grajeda, EDD 07/22/2025 8:15 AM EDT Clinical Support [facility] [address] [place] [phone] Nkechi Grajeda, RN 08/19/2025 8:15 AM EDT Clinical Support [facility] [address] [place] [phone] Nkechi Grajeda, EDD 09/16/2025 8:15 AM EDT Clinical Support [facility] [address] [place] [phone] Nkechi Grajeda RN 10/14/2025 8:15 AM EDT Clinical Support [address] [phone] Nkechi Grajeda RN 11/11/2025 8:15 AM EDT Clinical Support [address] [address] Nkechi Grajeda RN 12/09/2025 8:15 AM EDT Clinical Support [address] [phone] Nkechi Grajeda, RN documented as of this encounter Visit Diagnoses Not on filedocumented in this encounter Care Teams Maintenance Mechanic Telephone Relationship Specialty Start Date End Date Deloris Tobias NP [address] [place] [phone] PCP - General Family Medicine 12/01/24 documented as of this encounter
--- OUTSIDE RECORDS SUMMARY | 2024-12-16 04:28 | XMS_ITS ---
Author Organization [facility] Address [address] [place] [address] Phone Care Team Providers Care Print Support Specialist Name Role Phone Deloris Tobias CLIENT DEVELOPMENT CONSULTANT Primary Care Provider [phone] Program of [facility] Status:Enrolled (Active) Start date:12/18/2020 Enrollment date:12/18/2020 Related social drivers of health:Housing Instability, Financial Risk, Transportation, Social Isolation, Food Risk Related service episodes:[facility] (Active) Overview This episode will track PACE documentation. Case Team Name Relationship Phone Deloris Tobias CLIENT DEVELOPMENT CONSULTANT Nurse Practitioner Max Yang Recreational Therapist Nkechi Grajeda workers compensation claims assistantResearch Tech Ivana Chowdhury PACK CHANGER Metal Cut [employer] Saw Tender Tyler Ling OT Occupational Therapist Celestino Conway RD Dietitian Duyen Huerta PT Physical Therapist Troy Jett [place] Storage Consultant Akbar Estrada STRUCTURAL STEEL WORKER Project Hire Chika [place] Project Hire Erich Gregorio Spiritual Care Huong Lloyd OT Occupational Therapist Shruti Sheppard INLAYER SILVER Project Hire Justice French PT Physical Therapist Audrey Baptiste RN Registered Nurse Susy Martin MD Primary Care Provider [phone] Continued Care and Services Coordination
[2024-12-16 04:30] LABS: COVID-19 Test Negative (Negative); IDNOW Serial# 55D5AD1C; IDNOW Serial# 58CA691E; Influenza B2 Negative (Negative)
[2024-12-16 04:30] LABS: Alanine Aminotransferase 86 U/L (0-40); Albumin Level 4.1 g/dL (3.5-5.0); Alkaline Phosphatase 88 U/L (39-117); Anion Gap 14 (12-20); Aspartate Amino Transferase 66 U/L (5-37); Blood Urea Nitrogen 23 mg/dL (9-16); Calcium 9.7 mg/dL (8.4-10.2); Carbon Dioxide 33 mmol/L (22-29); Chloride 95 mmol/L (96-108); Creatinine Clr Calc Pharmacy 85.6; Estimated Glomerular Filt Rate 58; Magnesium 2.3 mg/dL (1.6-2.6); Potassium 3.6 mmol/L (3.3-5.1); Sodium 138 mmol/L (135-145); Total Protein 7.4 g/dL (6.5-8.0)
[2024-12-16 04:36] LABS: NT Pro B Type Natriuretic Pept 381.6 pg/mL (<300); Troponin-I High Sensitivity 23.7 ng/L (<3.5-35.0)
--- NOTE | 2024-12-16 05:15 | ED.SOB ---
HPI - SOB/Dyspnea General Chief Complaint: Dyspnea Stated Complaint: Anxiety Time Seen by Provider: 12/16/24 03:47 Source: patient and EMS Mode of arrival: EMS Limitations: no limitations History of Present Illness ED Provider: Dr. Vivien Dimas HPI Narrative: 64-year-old male with extensive past medical history including CAD status post pacemaker placement and CABG, hypertension, diabetes, CHF presenting with shortness of breath that has been ongoing for the last several weeks. Admits he has been seen at [facility] several times over the last 2 weeks. Admits he was taking Ativan without relief of his anxiety. Giovani called 911 because his oxygen level was less than 90% for him at his home. EMS reports upon arrival the oxygen was over 95% and the patient's work of breathing was normal. Patient admits that he is feeling anxious. Admits that nothing has helped his anxiety lately. Also has some chronic lower extremity edema with venous stasis changes and diabetic wounds that are slow to heal. Admits he came to [facility] because he ?wanted a fresh perspective?. He denies chest pain, abdominal pain, nausea, vomiting, diarrhea, dysuria or hematuria. No reported fever. Related Data Home Medications ?Medication ?Instructions ?Recorded ?Confirmed albuterol sulfate 90 mcg/actuation 2 puff inhalation Q6H PRN 04/21/22 10/02/24 aerosol inhaler aspirin 81 mg tablet,delayed 81 mg PO DAILY 04/21/22 10/02/24 release carvedilol 6.25 mg tablet 6.25 mg PO BID 04/21/22 10/02/24 dapagliflozin propanediol 10 mg 10 mg PO DAILY 04/21/22 10/02/24 tablet (Farxiga) finasteride 5 mg tablet 5 mg PO BEDTIME 04/21/22 10/02/24 fluticasone 100 mcg-salmeterol 50 1 inh inhalation BID 04/21/22 10/02/24 mcg/dose blistr powdr for inhalation isosorbide mononitrate 30 mg 30 mg PO QAM 04/21/22 10/02/24 tablet,extended release 24 hr lidocaine 4 % topical patch 1 patch topical DAILY PRN 04/21/22 10/02/24 metformin 1,000 mg tablet 1,000 mg PO BID 02/02/23 07/16/25 nitroglycerin 0.4 mg sublingual 0.4 mg sublingual Q5M PRN 04/21/22 10/02/24 tablet potassium chloride 10 mEq 10 meq PO DAILY 04/21/22 10/02/24 capsule,extended release sacubitril 49 mg-valsartan 51 mg 1 tab PO BID 04/21/22 10/02/24 tablet (Entresto) spironolactone 25 mg tablet 25 mg PO BID 04/21/22 10/02/24 tamsulosin 0.4 mg capsule 0.4 mg PO DAILY 04/21/22 10/02/24 trazodone 100 mg tablet 100 mg PO BEDTIME 04/21/22 10/02/24 atorvastatin 80 mg tablet (Lipitor) 80 mg PO DAILY 10/02/24 10/02/24 bumetanide 2 mg tablet 2 mg PO BID 10/02/24 10/02/24 gabapentin 400 mg capsule 800 mg PO TID 10/02/24 10/02/24 Allergies Allergy/AdvReac Type Severity Reaction Status Date / Time shellfish derived Allergy Unknown Unknown Verified 12/16/24 03:39 Review of Systems Review of Systems: as per HPI, full review of systems performed and negative but for the above mentioned pertinent positives and negatives. [facility] Past Medical History Medical History Hypercholesteremia Pacemaker CAD (coronary artery disease) Hypertension Diabetes mellitus Surgical History S/P triple vessel bypass Social History Social History Patient Tobacco Use Status: Current everyday Tobacco user Smoked in Last 30 Days: No Use of substances other than those prescribed or required for medical reasons: No Advance Directives: No Advance Directives Information Provided: No Do you have a plan to hurt others: No Plan Physical Exam Exam: Exam: GENERAL: Chronically ill-appearing, unkempt. SKIN: Normal skin color for ethnicity, warm, dry, chronic venous stasis changes bilateral lower extremities with multiple diabetic ulcers of various stages of healing, no purulence, no foul smelling discharge, dressings covering both legs. HEENT: Normocephalic, atraumatic, no stridor, EOMI. NECK: Soft, supple, full ROM, midline structures nontender, no step-offs, no deformities, no lymphadenopathy. CHEST: Heart irregular bradycardia, symmetric chest rise and fall, sternotomy scar is well healed. PULMONARY: Coarse lung sounds bilaterally, diminished at the bases, no wheezes. ABDOMINAL: Soft, protuberant nontender, quiet bowel sounds in all quadrants. : Deferred. MUSCULOSKELETAL: Normal tone, full range of motion, no deformities, 2+ peripheral edema bilaterally. NEURO: Alert and oriented to person, CN II through XII intact, no focal neurologic deficits. PSYCHIATRIC: Anxious affect, appropriate demeanor. Vital Signs: Vital Signs: Last Vital Signs Pulse 57 12/16/24 03:31 Resp 18 12/16/24 03:31 BP 112/63 12/16/24 03:31 Pulse Ox 93 12/16/24 03:31 O2 Del Method Room Air 12/16/24 03:31 BMI result Body Mass Index 46.6 Medical Decision Making Medical Decision Making MDM Narrative: Patient presents today with chief complaint of shortness of breath. Differential diagnosis includes, but is not limited to, upper respiratory infection, pneumonia, COPD exacerbation, asthma exacerbation, CHF, pneumothorax, pleural effusion, pulmonary embolism, ACS. Broad-based work-up will be initiated to evaluate for etiology of patient's symptoms. Patient's clinical picture is consistent with CHF exacerbation. His BNP is slightly elevated, bilateral lower extremities with chronic venous stasis changes in significant edema, cardiomegaly and wet cough. Plan for diuretics, pain control and outpatient follow up with primary care. Patient goes to [facility]. He has multiple pain and anxiolysis medications at home including lorazepam, clonidine and oxycodone. No indication for further pain medications. Differential Diagnosis Differential Diagnoses: The differential diagnosis associated with the presentation includes (as above) Admission/Observation Consideration of admission/observation: Escalation of care including admission/observation considered Lab Data MDM Lab Attestation statement: I reviewed the patient's lab results. 12/16/24 04:10 12/16/24 04:10 Labs: Lab Results 12/16/24 12/16/24 Range/Units 04:05 04:10 WBC 8.9 (4.8-10.8) X10*3/uL RBC 5.50 (4.60-5.80) X10*6/uL Hgb 15.1 (14.0-18.0) g/dl Hct 46.8 (42.0-52.0) % MCV 85.1 (80.0-98.0) fL MCH 27.5 (27.0-33.0) pg MCHC 32.3 (31.0-36.0) g/dl RDW 14.5 (11.0-16.0) % Plt Count 166 (160-400) X10*3/uL MPV 11.3 (9.4-12.4) fL Immature Gran % (Auto) 0.3 (0.0-0.4) % Neut % (Auto) 58.4 (45-73) % Lymph % (Auto) 26.5 (20-40) % [place] % (Auto) 12.6 H (2-11) % Eos % (Auto) 1.8 (0-4) % Baso % (Auto) 0.4 (0-2) % Lymph # (Auto) 2.4 (1.2-4.9) X10*3/uL [place] # (Auto) 1.1 (0.1-1.2) X10*3/uL Eos # (Auto) 0.2 (0.0-0.4) X10*3/uL Baso # (Auto) 0.0 (0.0-0.2) X10*3/uL Abs Immat Gran (auto) 0.03 (0.00-0.03) X10*3/uL Absolute Neuts (auto) 5.2 (2.0-8.3) x10*3/uL Absolute Nucleated RBC 0.000 (0.0-0.012) X10*3/uL Nucleated RBC % (auto) 0.0 (0.0-0.2) /100WBC Sodium 138 (135-145) mmol/L Potassium 3.6 (3.3-5.1) mmol/L Chloride 95 L (96-108) mmol/L Carbon Dioxide 33 H (22-29) mmol/L Anion Gap 14 (12-20) BUN 23 H (9-16) mg/dL Creatinine 1.25 (0.5-1.4) mg/dL Estim Creat Clear Calc 85.6 Estimated GFR 58 Random Glucose 109 (60-115) mg/dL Calcium 9.7 (8.4-10.2) mg/dL Magnesium 2.3 (1.6-2.6) mg/dL Total Bilirubin 1.0 (0.0-1.0) mg/dL AST 66 H (5-37) U/L ALT 86 H (0-40) U/L Alkaline Phosphatase 88 (39-117) U/L Troponin I High Sens 23.7 (<3.5-35.0) ng/L NT-Pro-B Natriuret Pep 381.6 H (<300) pg/mL Total Protein 7.4 (6.5-8.0) g/dL Albumin 4.1 (3.5-5.0) g/dL COVID-19 (DANIEL) Negative (Negative) COVID-19 Clin Com See Note Influenza Type A (TOMASA) Negative (Negative) Influenza Type B (TOMASA) Negative (Negative) Influenza A & B Note See Note Independent Interpretation I performed an independent interpretation of an: EKG Interpretation: My independent interpretation of the ECG reveals sinus bradycardia with a rate of 54, frequent PVCs, normal axis, nonspecific interventricular conduction delay, [place] interval 220, no ST elevations or depressions to suggest ischemic changes, no previous for comparison Radiology Impression Discussion of test interpretation with radiology: I have reviewed the radiologist's reading. Independent Historian Clinical information obtained from an independent historian. History obtained from or confirmed by: EMS External Record Review External record reviewed: Inpatient record Prescription Management I considered prescription management with: Pain Medication Chronic Conditions Patient?s care impacted by: Diabetes, Hypertension and Other (CHF) Social Determinants Patient?s care significantly limited by Social Determinants of Health including: Problems related to primary support group and Other Social Determinant of Health Discharge Plan Discharge Clinical Impression: Acute exacerbation of chronic heart failure, Anxiety, Acute dyspnea Patient Disposition: Home, Self-Care Instructions: Heart Failure (ED), Anxiety (ED) Additional Instructions: Thankfully your blood work is reassuring today. There is no evidence of strain on your heart. You have a little bit of extra fluid in your body that needs to be drawn off with your water pill. Please continue to take your Bumex as prescribed. Return to the ER with any new or worsening symptoms including: Worsening chest pain, difficulty breathing, fevers greater than 100?, changes in the ulcers on your legs or any new symptom that concerns you. Otherwise follow up with your primary care doctor as soon as possible. Prescriptions: No Action albuterol sulfate 90 mcg/actuation HFA aerosol inhaler 2 puff inhalation Q6H PRN aspirin 81 mg tablet,delayed release (DR/EC) 81 mg PO DAILY carvedilol 6.25 mg tablet 6.25 mg PO BID Rx Instructions: must administer with a meal/food Farxiga 10 mg tablet 10 mg PO DAILY finasteride 5 mg tablet 5 mg PO BEDTIME fluticasone propion-salmeterol 100-50 mcg/dose blister with device 1 inh inhalation BID isosorbide mononitrate 30 mg tablet extended release 24 hr 30 mg PO QAM lidocaine 4 % adhesive patch,medicated 1 patch topical DAILY PRN metformin 1,000 mg tablet 1,000 mg PO BID nitroglycerin 0.4 mg tablet, sublingual 0.4 mg sublingual Q5M PRN Rx Instructions: do not exceed 3 doses per episode potassium chloride 10 mEq capsule, extended release 10 meq PO DAILY Entresto 49-51 mg tablet 1 tab PO BID spironolactone 25 mg tablet 25 mg PO BID tamsulosin 0.4 mg capsule 0.4 mg PO DAILY trazodone 100 mg tablet 100 mg PO BEDTIME gabapentin 400 mg capsule 800 mg PO TID atorvastatin [Lipitor] 80 mg tablet 80 mg PO DAILY bumetanide 2 mg tablet 2 mg PO BID Print Language: Chinese
[2024-12-16] MEDS: oxyCODONE HCl Immed Release 5 MG TABLET 10 MG PO (05:29)
[2024-12-16 05:31] VITALS: BP 117/71; PULSE 64; RESP 15; TEMP 36.6; O2SAT 95
--- NOTE | 2024-12-16 05:36 | PC.NURSE ---
pt ambulatory to bathroom with steady gait and medicated per may.
[2024-12-16 06:46] VITALS: BP 117/71; PULSE 64; RESP 15; TEMP 36.6; O2SAT 95
== END 2024-12-16 06:52 | disposition home or self-care (01) ==
PROVIDERS: Emergency Provider Emergency Medicine
DX: I11.0 Hypertensive heart disease with heart failure (principal); I50.9 Heart failure, unspecified; F41.9 Anxiety disorder, unspecified; E11.9 Type 2 diabetes mellitus without complications; Z95.0 Presence of cardiac pacemaker; Z79.899 Other long term (current) drug therapy
CPT/HCPCS: 71046; 80053; 83735; 83880; 84484; 85025; 87502; 87635; 93005; 99283; 99285

== ENCOUNTER → 2024-12-16 03:47 | Outpatient (BNV) | payer OTHER, SELFPAY | PROVIDERS: Emergency Provider Emergency Medicine; Visit Provider Radiology Diagnostic Radiology | DX: R06.00 Dyspnea, unspecified (principal) | CPT/HCPCS: 71046 ==

== ENCOUNTER → 2024-12-16 03:56 | Outpatient (BNV) | payer OTHER, SELFPAY | PROVIDERS: Emergency Provider Emergency Medicine; Visit Provider Internal Medicine | DX: I49.3 Ventricular premature depolarization (principal); I44.0 Atrioventricular block, first degree; R00.1 Bradycardia, unspecified | CPT/HCPCS: 93010 ==